=== PATIENT | female | born 1955 | race Caucasian/White ===

== ENCOUNTER 2018-01-03 05:21 | Inpatient (IN) | payer OTHER, SELFPAY ==
[2017-12-22 15:05] VITALS: BP 146/74; PULSE 62; RESP 16; TEMP 36.9; O2SAT 99; BMI 35.6
--- NOTE | 2017-12-22 15:37 | SDCEKG_ITS ---
Test Reason : Blood Pressure : / mmHG Vent. Rate : 058 BPM Atrial Rate : 058 BPM P-R Int : 144 ms QRS Dur : 088 ms QT Int : 472 ms P-R-T Axes : 032 -04 019 degrees QTc Int : 463 ms Sinus bradycardia Cannot rule out Anterior infarct , age undetermined Abnormal ECG Confirmed by LES VILLALOBOS, CLAYTON ([id number]), story editor TIMI CORONA ([id number]) on 12/24/2017 9:30:22 AM Referred By: Rambo Acosta Confirmed By:CLAYTON SALDANA MD
[2017-12-22 17:14] LABS: Hematocrit 39.5 % (37-47); Hemoglobin 13.1 g/dl (12.0-15.0); Mean Corp Hgb Conc 33.2 g/gl (32-36); Mean Corpuscular Hgb 29.8 pg (27.0-32.0); Mean Platelet Vol. 10.4 fl (6.2-12.0); Platelet Count 129 K/mm3 (150-450); RBC Distribution Width CV 12.6 % (11.6-14.6); RBC Distribution Width SD 40.6 fl (35.1-43.9); Red Blood Count 4.39 M/mm3 (4.2-5.4); White Blood Count 7.7 K/mm3 (4.4-11.0)
[2017-12-22 17:15] LABS: Scan Indicated on CBC? Y/N NO
[2017-12-22 17:46] LABS: Anion Gap 8 (5-15); BUN 22 mg/dL (7-18); BUN/Creat Ratio 20.8 RATIO (10-20); Calcium,Total 8.9 mg/dL (8.5-10.1); Chloride 103 mmol/L (98-107); Creatinine, Serum 1.06 mg/dL (0.55-1.02); EST Glomerular Filtration Rate 55 mL/min (>60); Est Glom Filt Rate - Afr Amer 67 mL/min (>60); Estimated Creatinine Clearance 42.41 ml/min; Glucose 81 mg/dL (74-106); Potassium 3.9 mmol/L (3.5-5.1); Sodium Level 140 mmol/L (136-145)
[2018-01-03] VITALS (13 sets, daily range): BP systolic 106–151; BP diastolic 55–85; PULSE 54–85; RESP 14–18; TEMP 36.3–37.2; O2SAT 94–100; BMI 35.6
[2018-01-03] MEDS: oxyCODONE HCl Cr 10 MG Tablet PO (06:28)
[2018-01-03] MEDS: Acetaminophen 500 MG Tablet 1000 MG PO ×3 (06:28→23:04)
[2018-01-03] MEDS: Celecoxib 200 MG Capsule 400 MG PO (06:28)
[2018-01-03] MEDS: Lactated Ringers 1,000 ML 999 ML IV (06:35)
[2018-01-03] MEDS: Cefazolin 2 GM in 0.9% Normal Saline 100 ML IV (07:14)
--- NOTE | 2018-01-03 07:34 | OP.PCM_ITS ---
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 They have failed all forms of conservative measures including activity modification, injections, anti-inflammatories, use of assistive device. The patient has pain that affects on a daily basis and prevents him from doing things that they enjoyed. They have elected to undergo the above procedure. The risks of the procedure were discussed at length and their questions were answered. Procedure description: The patient was greeted in the preoperative area. The right knee was then marked with a surgical marker. Patient was then taken to or [address]. They were administered a dose of antibiotics as well as tranexamic acid. Once adequate anesthesia was obtained and airway was secured to placed in supine position on the operating room table. A well-padded tourniquet was placed on the affected extremity. Leg was then prepped and draped in the usual sterile fashion from the knee down. Ioban was used on the skin. Surgical timeout was then performed and confirmed with all present. Six-inch Esmarch was used to examine the limb and tourniquet was then inflated to 250 mmHg. A longitudinal incision was then planned and carried out in the anterior aspect of the knee. The dissection was then carried the length of the incision the extensor mechanism was identified. Standard medial parapatellar arthrotomy was then performed revealing severe eburnation of bone and periarticular osteophytes. There is complete loss of cartilage especially in the medial compartment with varus alignment. Anterior fat pad was removed for visualization purposes and the anterior medial aspect of the tibia was skeletonized for exposure to the knee. The knee was then flexed the patella was inverted. Opening reamer was then used in the femur approximately 1 cm anterior to the attachment of the PCL. The intramedullary valgus wand was then placed in the femur set at 5? of valgus. The distal femoral cutting jig was then applied to the femur with anticipated resection of approximately 8 mm. This was then made with a oscillating saw. The sizing guide was then placed referencing off the posterior condyles and also reference off the epicondylar axis. This was measured and the appropriate size 4-in-1 cutting jig was then applied to the distal femur. Anterior posterior cuts were made followed by the anterior and posterior chamfer cuts. These bony pieces and fragments were removed and placed on the back table. Posterior retractor was then utilized and the tibia was subluxed anteriorly. Extramedullary tibial alignment jig was then applied to the tibia referencing off the medial one third of the tibial tubercle the anterior tibial spine the middle aspect of the tibiotalar joint. Also reference off patient's koi slope. The tibial cutting jig was then pinned with anticipated resection of 2 mm off of the deficient medial tibial condyle. This cut was made with the oscillating saw. Once this was complete a laminar compensation and benefits analyst was utilized in both medial lateral meniscus were removed and a posterior capsular osteophytes were also removed. Posterior capsule release was performed in the posterior capsule as well as the geniculate arteries are treated with the aqua Snow. The tibia was incised and the appropriate sized tibial tray was then pinned. The femoral box cutting jig was then applied to the femur and the box was prepared removing a portion of the intercondylar notch. The femoral trial was then placed and the knee was trialed. Full flexion-extension were easily achieved. The knee seemed to balance quite nicely. Any remaining osteophytes were removed at this time. Once this was complete the patella was everted and the Kenrick patella reaming device was then utilized the patella was then placed in the appropriate jig and reamer was then used to remove approximately 9 mm of the undersurface of the patella. A soft tissue remaining was in the way was removed and patella trial was then placed listed maintain excellent tracking using the no thumbs technique. The tibial tray at this point was punched to accommodate the fins of the final implant. At this point cement was mixed on the back table. The trial components were removed and the knee was copiously irrigated. Did use a cocktail of injection for postoperative pain control. The final components were then cemented in the standard fashion and excess cement was removed with cement removal tools and patellar clamp is placed in the patella. As the cement had cured in full extension tourniquet was deflated and hemostasis was perfect with Bovie cautery as well as the aqua Manus. Needle is once again trialed with different size polyethylenes to ensure the full range of motion was achieved as well as excellent balancing ligamentously was achieved. At this point the knee was copiously irrigated. Final implant was then inserted locking mechanism was engaged and confirmed to be locked. The arthrotomy was then closed with #1 Vicryl aggravate type fashion interrupted. Subcutaneous tissue was closed with 0 Vicryl and surgical ihsan were placed in the skin. A occlusive silver impregnated dressing was then applied followed by well-padded sterile dressing secured with an Dru wrap. The patient was taken to the PACU in stable condition. No complications known at this time. Postoperatively we will maintain standard total knee postoperative protocol. The use of the physician material assistant was integral during this procedure. They assisted with positioning placement of the tourniquet retracting closure and placement of the dressing. The procedure would have been much more difficult without their expertise and assistance The patient's left knee was cleansed with alcohol preparation solution. A 25- gauge needle was then used to inject combination of 4 mL of 0.5% Marcaine with 40 mg of Kenalog using an anterior medial approach. A bandage was placed. Patient tolerated the procedure well. - Complications None known - Admit VTE Documentation VTE Present on Admission: Yes VTE Mechan Device Prophylaxis: SCD's, Thigh High AXEL Hose VTE Pharm Prophylaxis ordered?: Yes
[2018-01-03] MEDS: Triamcinolone Acetonide 40 MG/ML Vial (07:50)
[2018-01-03] MEDS: Bupivacaine Mpf 0.5% 30 ML VIAL (07:50)
[2018-01-03] MEDS: Scopolamine 1mg/72hr Patch 1 PATCH TD (09:29)
[2018-01-03] MEDS: Famotidine 20 MG Tablet PO (13:37)
[2018-01-03] MEDS: Furosemide 20 MG Tablet PO (13:37)
[2018-01-03] MEDS: Senna/Docusate Sodium 1 Tablet 2 TABLET PO ×2 (13:37→23:05)
[2018-01-03] MEDS: Cefazolin 1 GM/50 ML BAG IV ×2 (15:52→23:05)
[2018-01-03] MEDS: Aspirin 325 MG Tablet PO (17:32)
[2018-01-03] MEDS: Lactated Ringers 1,000 ML 125 ML IV (17:34)
[2018-01-03] MEDS: morphine SR 15 MG Tablet PO (23:04)
[2018-01-03] MEDS: Celecoxib 200 MG Capsule PO (23:05)
[2018-01-04 02:35] VITALS: BP 100/64; PULSE 55; RESP 16; TEMP 36.6; O2SAT 96
[2018-01-04] MEDS: Acetaminophen 500 MG Tablet 1000 MG PO ×3 (05:15→21:53)
[2018-01-04 06:19] LABS: Hematocrit 35.9 % (37-47); Mean Corp Hgb Conc 33.4 g/gl (32-36); Mean Corpuscular Hgb 30.1 pg (27.0-32.0); Mean Platelet Vol. 10.2 fl (6.2-12.0); Platelet Count 165 K/mm3 (150-450); RBC Distribution Width CV 12.4 % (11.6-14.6); RBC Distribution Width SD 40.7 fl (35.1-43.9); Red Blood Count 3.99 M/mm3 (4.2-5.4); White Blood Count 13.5 K/mm3 (4.4-11.0)
[2018-01-04 06:21] LABS: Anion Gap 10 (5-15); BUN 17 mg/dL (7-18); BUN/Creat Ratio 17.5 RATIO (10-20); Chloride 105 mmol/L (98-107); Creatinine, Serum 0.97 mg/dL (0.55-1.02); EST Glomerular Filtration Rate 61 mL/min (>60); Est Glom Filt Rate - Afr Amer 74 mL/min (>60); Estimated Creatinine Clearance 46.34 ml/min; Glucose 140 mg/dL (74-106); Potassium 3.9 mmol/L (3.5-5.1); Sodium Level 141 mmol/L (136-145)
[2018-01-04 06:25] LABS: Scan Indicated on CBC? Y/N NO
[2018-01-04] MEDS: Pantoprazole Sodium 40 MG Tablet PO (07:02)
--- NOTE | 2018-01-04 07:44 | PCM.PN.ORT ---
Subjective: Patient sitting at bedside eating breakfast. Patient states pain is been well managed. Patient states she was brought up in use the bathroom and change her clothes without difficulty today. Denies chest pain, shortness breath, calf pain, nausea vomiting. Objective: Dressing is clean dry intact. Negative signs and symptoms of DVT. Vital signs labs within normal limits. Neurovascular is otherwise intact - Physical Exam General: Alert, Oriented x3 HEENT: PERRLA Oral: Moist Mucosa Neurological: Cranial nerves II-XII grossly intact Psych/Mental Status: Normal Affect, Alert and oriented to time, place, person, mood and affect Vital Signs Temp Pulse Resp BP Pulse Ox 97.8 F 55 L 16 100/64 96 01/04/18 02:35 01/04/18 02:35 01/04/18 02:35 01/04/18 02:35 01/04/18 02:35 Oxygen Delivery Method Room Air Weight: 88.5 kg Body Mass Index (BMI) 35.6 Intake and Output for Last 24 Hours 01/02/18 01/03/18 01/04/18 23:59 23:59 23:59 Intake Total 3659 / 3659 995.6 / 995.6 Output Total 3800 / 3800 600 / 600 Balance -141 / -141 395.6 / 395.6 Laboratory Tests Past 24 Hrs 01/04/18 01/04/18 05:13 05:13 WBC 13.5 H RBC 3.99 L Hgb 12.0 Hct 35.9 L MCV 90.0 MCH 30.1 MCHC 33.4 RDW 12.4 RDW Differential 40.7 Plt Count 165 MPV 10.2 Sodium 141 Potassium 3.9 Chloride 105 Carbon Dioxide 26.0 Anion Gap 10 BUN 17 Creatinine 0.97 Estim Creat Clear Calc 46.34 Est GFR (MDRD) Af Amer 74 Est GFR (MDRD) Non-Af 61 BUN/Creatinine Ratio 17.5 Glucose 140 H Calcium 9.0 Medical Necessity - Tobacco Use Smoking Status: Never smoker Assessment/Plan Status post right total knee Plan 1. Continue all pain medications as prescribed 2. Begin physical therapy today, weight-bear as tolerated, with walker 3. Aspirin 325 mg 1 p.o. every 12 hours ?30 days for postop DVT prophylaxis 4. Encourage incentive spirometry 5. Possible discharge home tomorrow
[2018-01-04] MEDS: Aspirin 325 MG Tablet PO ×2 (08:03→16:54)
[2018-01-04 08:05] VITALS: BP 109/51; PULSE 66; RESP 16; TEMP 37; O2SAT 94
[2018-01-04] MEDS: Famotidine 20 MG Tablet PO (09:48)
[2018-01-04] MEDS: Furosemide 20 MG Tablet PO (09:48)
[2018-01-04] MEDS: Senna/Docusate Sodium 1 Tablet 2 TABLET PO ×2 (09:48→21:54)
[2018-01-04] MEDS: Celecoxib 200 MG Capsule PO ×2 (09:48→21:53)
[2018-01-04] MEDS: morphine SR 15 MG Tablet PO ×2 (09:53→21:53)
--- NOTE | 2018-01-04 11:10 | CASEMGMT ---
NATO ACOSTA completed RN CM assessment at this time. Patient alert and oriented, lying in bed. Demographics, insurance, and providers verified. See link attached. Patient wishes to discharge home and is setup with [facility] for outpatient therapy with providing transportation. Patient denied further needs or questions at this time. RN CM will continue to follow this patient and plan for a safe discharge. Disposition Plan: Patient to discharge home with outpatient therapy, family support, and follow-up plans in place.
[2018-01-04 13:40] VITALS: BP 125/54; PULSE 55; RESP 18; TEMP 37.4; O2SAT 96
[2018-01-04] MEDS: oxyCODONE 5 MG Tablet PO ×2 (13:46→17:58)
[2018-01-04] MEDS: 0.9% NaCl Peripheral Flush Adult/Peds IV (13:49)
[2018-01-04 19:56] VITALS: BP 117/51; PULSE 56; RESP 16; TEMP 36.7; O2SAT 98
[2018-01-05 02:00] VITALS: BP 136/81; PULSE 54; RESP 16; TEMP 36.9; O2SAT 98
[2018-01-05] MEDS: oxyCODONE 5 MG Tablet PO ×2 (02:07→06:16)
[2018-01-05] MEDS: Acetaminophen 500 MG Tablet 1000 MG PO (06:16)
[2018-01-05] MEDS: Pantoprazole Sodium 40 MG Tablet PO (06:17)
[2018-01-05 06:53] LABS: Hematocrit 34.6 % (37-47); Mean Corp Hgb Conc 31.8 g/gl (32-36); Mean Corpuscular Volume 91.3 fL (81-99); Mean Platelet Vol. 10.8 fl (6.2-12.0); Platelet Count 180 K/mm3 (150-450); RBC Distribution Width CV 13.1 % (11.6-14.6); RBC Distribution Width SD 43.4 fl (35.1-43.9); Red Blood Count 3.79 M/mm3 (4.2-5.4); White Blood Count 11.5 K/mm3 (4.4-11.0)
[2018-01-05 06:57] LABS: Scan Indicated on CBC? Y/N NO
[2018-01-05 08:00] VITALS: BP 124/70; PULSE 64; RESP 16; TEMP 36.8; O2SAT 98
[2018-01-05] MEDS: Famotidine 20 MG Tablet PO (09:28)
[2018-01-05] MEDS: morphine SR 15 MG Tablet PO (09:28)
[2018-01-05] MEDS: Senna/Docusate Sodium 1 Tablet 2 TABLET PO (09:29)
[2018-01-05] MEDS: Furosemide 20 MG Tablet PO (09:29)
[2018-01-05] MEDS: Aspirin 325 MG Tablet PO (09:29)
[2018-01-05] MEDS: Celecoxib 200 MG Capsule PO (09:29)
--- NOTE | 2018-01-05 10:02 | PN.ORTHO_ITS ---
Subjective: Patient sitting at bedside. Pain well managed. States she is ready for discharge home. No other complaints Objective: Dressings clean dry intact. Negative signs and symptoms of DVT. Vital signs labs within normal limits. Patient is afebrile. - Physical Exam General: Alert, Oriented x3 Psych/Mental Status: Alert and oriented to time, place, person, mood and affect Vital Signs Temp Pulse Resp BP Pulse Ox 98.2 F 64 16 124/70 H 98 01/05/18 08:00 01/05/18 08:00 01/05/18 08:00 01/05/18 08:00 01/05/18 08:00 Oxygen Delivery Method Room Air Weight: 88.5 kg Body Mass Index (BMI) 35.6 Intake and Output for Last 24 Hours 01/03/18 01/04/18 01/05/18 23:59 23:59 23:59 Intake Total 3659 / 3659 1994.6 / 1994.6 Output Total 3800 / 3800 1875 / 1875 450 / 450 Balance -141 / -141 120.6 / 120.6 -450 / -450 Laboratory Tests Past 24 Hrs 01/05/18 06:04 WBC 11.5 H RBC 3.79 L Hgb 11.0 L Hct 34.6 L MCV 91.3 MCH 29.0 MCHC 31.8 L RDW 13.1 RDW Differential 43.4 Plt Count 180 MPV 10.8 Medical Necessity - Tobacco Use Smoking Status: Never smoker Assessment/Plan Status post right total knee Plan 1. Continue all pain medications as prescribed 2. Continue physical therapy at [facility] , weight-bear as tolerated, with walker 3. Aspirin 325 mg 1 p.o. every 12 hours ?30 days for postop DVT prophylaxis 4. Follow-up as scheduled 5. Discharge home today
--- NOTE | 2018-01-05 10:05 | PCM.DC.TKR ---
Discharge Diet: No Restrictions Discharge Activity: May Not Drive, May Shower, Use Walker May shower in (days): 1 Ice area for (Minutes): 20 - each hour while awake. Weight Bearing Status: Weight bearing as tolerated Elevate: Operative Extremity Additional Activity Instructions:: Wear elastic stockings for 2 weeks after your surgery. Call your doctor if your incision/area has: Continuous Slow Oozing, Sudden Increased Bleeding, Increased Pain/ Swelling, Increased Redness, Foul Smelling Discharge Call your doctor if you observe: Fever of 101 or Higher, Coldness, Increased Pain - in extremity, Numbness or Tingling, Change in Color, Calf discomfort, Uncontrolled pain Change Dressing in (Days):: 0 - and daily as needed. Remove Dressing in (days):: 8 Cleanse incision/area with: Soap & Water Allergies/Adverse Reactions: Allergies No Known Allergies Allergy (Verified 12/22/17 14:57) Medications to take at Discharge Multivit with Calcium,Iron,Min [Multiple Vitamins For Women] 1 each PO DAILY 03/12/17 Cholecalciferol (Vitamin D3) [Vitamin D3] 1,000 unit PO DAILY 12/22/17 Furosemide [Lasix] 20 mg PO DAILY 12/22/17 Pantoprazole Sodium [Protonix] 40 mg PO DAILY 12/22/17 Pumpkin Seed Extract/Soy Germ [Azo Bladder Control Capsule] 300 mg PO DAILY 12/22/17 Tumeric 1 cap PO DAILY 12/22/17 Acetaminophen [Tylenol] 1,000 mg PO Q8 #90 tab 01/05/18 Aspirin 325 mg PO BIDCM #60 tab 01/05/18 Oxycodone [Oxyir] 5 - 10 mg PO Q6H PRN PRN 7 Days #80 tab 01/05/18 morphine SR tablet [Ms Contin] 15 mg PO BID 7 Days #14 tab 01/05/18 The following prescriptions were given: Oxycodone [Oxyir] 5 - 10 mg PO Q6H PRN PRN 7 Days #80 tab PRN Reason: Mod-Severe Pain (4-1010) Acetaminophen [Tylenol] 1,000 mg PO Q8 #90 tab Aspirin 325 mg PO BIDCM #60 tab morphine SR tablet [Ms Contin] 15 mg PO BID 7 Days #14 tab Primary Care Physician: Be Esquivel DO [Primary Care Provider] - Test Results: Test results from this visit will be discussed in further detail at your follow-up appointment, if applicable. Please Follow Up With: Rambo Acosta, DO
--- NOTE | 2018-01-05 10:10 | DCINST_ITS ---
Discharge Diet: No Restrictions Discharge Activity: May Not Drive, May Shower, Use Walker May shower in (days): 1 Ice area for (Minutes): 20 - each hour while awake. Weight Bearing Status: Weight bearing as tolerated Elevate: Operative Extremity Additional Activity Instructions:: Wear elastic stockings for 2 weeks after your surgery. Call your doctor if your incision/area has: Continuous Slow Oozing, Sudden Increased Bleeding, Increased Pain/ Swelling, Increased Redness, Foul Smelling Discharge Call your doctor if you observe: Fever of 101 or Higher, Coldness, Increased Pain - in extremity, Numbness or Tingling, Change in Color, Calf discomfort, Uncontrolled pain Change Dressing in (Days):: 0 - and daily as needed. Remove Dressing in (days):: 8 Cleanse incision/area with: Soap & Water Allergies/Adverse Reactions: Allergies No Known Allergies Allergy (Verified 12/22/17 14:57) Medications to take at Discharge Multivit with Calcium,Iron,Min [Multiple Vitamins For Women] 1 each PO DAILY Cholecalciferol (Vitamin D3) [Vitamin D3] 1,000 unit PO DAILY 12/22/17 Furosemide [Lasix] 20 mg PO DAILY 12/22/17 Pantoprazole Sodium [Protonix] 40 mg PO DAILY 12/22/17 Pumpkin Seed Extract/Soy Germ [Azo Bladder Control Capsule] 300 mg PO DAILY Tumeric 1 cap PO DAILY 12/22/17 Acetaminophen [Tylenol] 1,000 mg PO Q8 #90 tab 01/05/18 Aspirin 325 mg PO BIDCM #60 tab 01/05/18 Oxycodone [Oxyir] 5 - 10 mg PO Q6H PRN PRN 7 Days #80 tab 01/05/18 morphine SR tablet [Ms Contin] 15 mg PO BID 7 Days #14 tab 01/05/18 The following prescriptions were given: Oxycodone [Oxyir] 5 - 10 mg PO Q6H PRN PRN 7 Days #80 tab PRN Reason: Mod-Severe Pain (4-1010) Acetaminophen [Tylenol] 1,000 mg PO Q8 #90 tab Aspirin 325 mg PO BIDCM #60 tab morphine SR tablet [Ms Contin] 15 mg PO BID 7 Days #14 tab Primary Care Physician: Be Esquivel DO [Primary Care Provider] - Test Results: Test results from this visit will be discussed in further detail at your follow- up appointment, if applicable. Please Follow Up With: Rambo Acosta, DO
== END 2018-01-05 13:38 | disposition home or self-care (01) | DRG 470 ==
LOC: ACINP 05:22 → MS3 08:40
PROVIDERS: Admitting Provider Orthopaedic Surgery; Family Provider Family Medicine; PCP Family Medicine; Visit Provider Orthopaedic Surgery
PROC: 0SRC0J9 Replacement of Right Knee Joint with Synthetic Substitute, Cemented, Open Approach (ICD-10-PCS; CPT 27447; principal; 2018-01-03 06:50)
DX: M17.0 Bilateral primary osteoarthritis of knee (principal); E66.9 Obesity, unspecified; Z68.36 Body mass index [BMI] 36.0-36.9, adult
CPT/HCPCS: 36415; 80048; 85027; 87081; 93005; 97110; 97116; 97162; 97165; 97530; 97535; 97802; C1776; J7120; A4216

== ENCOUNTER → 2018-03-02 11:51 | Outpatient (CLI) | payer OTHER, SELFPAY | PROVIDERS: Family Provider Family Medicine; PCP Family Medicine; Visit Provider Preventive Medicine Occupational Medicine | DX: Z12.31 Encounter for screening mammogram for malignant neoplasm of breast (principal) | CPT/HCPCS: 77063; 77067 ==

== ENCOUNTER 2018-04-21 11:25 | Day surgery (SDC) | payer OTHER, SELFPAY ==
--- NOTE | 2018-04-21 | IMM_PTH ---
PATIENT: RICHY WALLACE LOC: EN U#:[id number] AGE/SX: 62/F ROOM: RE04/21/[address]: Dr. Lina Stewart MD : 1955 BED: DIS: 04/21/2018 SPEC #: [id number] RECD: 04/22/18 14:41 STATUS: SOUSincere REQ #: [id number] DANNY: 04/21/18 00:[address]: Lina Stewart DEPT: IMMUNOHISTOCHEMISTRY RECD BY: Linda Wade ENTERED: 04/22/18 14:43 SP TYPE: IMMUNO OTHR DR: Dr. Be Esquivel DO Tissues: D - Rectum, NOS Procedures: MSH2 (add) MLH-1 (add) MSH6 (add) Anti-PMS2 (add) CK20 (add) CK5-6 (add) CK8 (add) BOYLE-2 (add) KI-67 (add) P53 (add) P40 (add) CK7 (initial) PHYSICIAN & [address] [address] SPECIMEN INFORMATION: Tissue Source: D - Distal rectum-anus mass biopsy Clinical Info: Bright red blood per rectum, change in stool caliber Specimen Number: [id number] CPT code: 55333, 94759 x11 METHODOLOGY: Deparaffinized sections of prefer/formalin-fixed tissue or PAP/DQ stained slides are incubated with monoclonal/polyclonal antibodies/oligonucleotide probes. Localization is made via biotin free immunoperoxidase method. Appropriate controls are performed and reacted as expected. Results on target cell population are indicated in the following table: RESULTS: ANTIBODY / CLONE RESULT CK7 (OV-TL12/30) positive CK8 ([id number]) positive, weak CK20 (KS20.8) negative CK5-6 (D5 & 1684) positive Ki-67 (30-9) positive, high P53 (DO-7) positive, rare cells, weak P40 (BC28) positive BOYLE-2 (SP21) positive MLH-1 (M1) positive MSH2 (25D12) positive MSH6 (44) positive PMS2 ([id number]) positive These tests were developed and their performance characteristics determined by [facility]. They may not have been cleared or approved by the U.S. Food and Drug Administration. The FDA has determined that such clearance or approval is not necessary. INTERPRETATION: Distal rectum-anus mass biopsy: Poorly differentiated carcinoma, favor squamous cell carcinoma. Result of Microsatellite Instability Study: Negative (no loss of mismatch protein; no microsatellite instability detected). SJ:reilly 04/22/18
--- NOTE | 2018-04-21 | COLBX_PTH ---
PATIENT: RICHY WALLACE LOC: EN U#:[id number] AGE/SX: 62/F ROOM: RE04/21/[address]: Dr. Lina Stewart MD : 1955 BED: DIS: 04/21/2018 SPEC #: [id number] RECD: 04/21/18 14:38 STATUS: MURTAZA REZita #: [id number] DANNY: 04/21/18 00:[address]: Lina Stewart DEPT: SURGICAL PATHOLOGY RECD BY: Reggie Coleman ENTERED: 04/21/18 14:39 SP TYPE: COLON BX NADEEN DR: Dr. Be Esquivel DO Tissues: A - Transverse colon B - Sigmoid colon biopsy C - Rectum, NOS D - Rectum, NOS Procedures: Surgery Specimen Level IV HEADER OPERATION: Colonoscopy PRE-OP DIAGNOSIS: Bright red blood per rectum, change in stool caliber TISSUE SUBMITTED: A - Proximal transverse colon polyp biopsy, B - Sigmoid polyp, C - Proximal rectal polyp, D - Distal rectum-anus mass biopsy MICROSCOPIC DIAGNOSIS A. Proximal transverse colon polyp, biopsy: Tubular adenoma. B. Sigmoid polyp, biopsy: Tubular adenoma. C. Proximal rectal polyp, biopsy: Fragments of tubular adenoma. D. Distal rectum-anus mass, biopsy: Poorly differentiated carcinoma, favor squamous cell carcinoma. See comment. SJ:rg 04/22/18 COMMENT Immunohistochemistry ([id number]) supports the above diagnosis. Results of mismatch repair of protein ([id number]) will also reported separately. This case was discussed with Dr. Stewart on 04/22/18 MICROSCOPIC DESCRIPTION Slides are reviewed. GROSS DESCRIPTION A - Received in fixative is one container labeled with the patient's name and designated proximal transverse colon polyp biopsy. The specimen consists of one irregular fragment of light warren soft tissue that measures 0.3 x 0.3 x 0.1 cm. The specimen is totally submitted in one cassette. B - Received in fixative is one container labeled with the patient's name and designated sigmoid polyp. The specimen consists of one irregular fragment of light warren soft tissue that measures 0.3 x 0.3 x 0.1 cm. The specimen is totally submitted in one cassette. C - Received in fixative is one container labeled with the patient's name and designated proximal rectal polyp. The specimen consists of multiple fragments of warren-pink polyp that in aggregate measure 1.5 x 0.5 x 0.3 cm. The specimen is totally submitted in one cassette. D - Received in fixative is one container labeled with the patient's name and designated distal rectum-anus mass biopsy. The specimen consists of multiple irregular fragments of light warren soft tissue that in aggregate measure 1.5 x 0.3 x 0.1 cm. The specimen is totally submitted in one cassette. / SJ:rg 04/21/18 TC:0 [facility]: [id number] x4 ADDENDUM ADDENDUM ADDENDUM ADDENDUM ADDENDUM ADDENDUM ADDENDUM ADDENDUM ADDENDUM ADDENDUM ADDENDUM ADDENDUM ADDENDUM 05/05/2018 09:59 ADDENDUM 05/05/2018 09:59 ADDENDUM 05/05/2018 09:59 ADDENDUM 05/05/2018 09:59 ADDENDUM 05/05/2018 09:59 This addendum is added to incorporate an outside pathology consultation report. The case was examined at [facility] (#[id number]) and the following diagnosis was rendered. A. Proximal transverse colon polyp, biopsy: Tubular adenoma. B. Sigmoid colon polyp, biopsy: Tubular adenoma. C. Proximal rectal polyp, biopsy: Fragments of tubular adenoma. D. Distal rectum/anus mass, biopsy: Poorly differentiated squamous cell carcinoma. Please see complete above mentioned consultation report in EMR
[2018-04-21 11:47] VITALS: BP 144/82; PULSE 73; RESP 16; TEMP 37; O2SAT 100; BMI 33.0
[2018-04-21 13:39] VITALS: BP 144/88; BP 95/73; PULSE 78; RESP 16; TEMP 36.4; O2SAT 98
[2018-04-21 13:43] VITALS: BP 118/70; BP 144/88; PULSE 70; RESP 16; O2SAT 100
--- NOTE | 2018-04-21 13:45 | OP.ENDO_ITS ---
Patient Name: Cynthia Wagoner Procedure Date: 04/21/2018 12:32 PM Date of : 1955 Age: 62 Procedure: Colonoscopy Indications: Abnormal rectal exam, Change in stool caliber Providers: Lina Stewart MD Referring MD: Lina Stewart MD Medicines: Monitored Anesthesia Care Patient Profile: Last Colonoscopy: none. The patient's first colonoscopy is today. Complications: No immediate complications. Procedure: Pre-Anesthesia Assessment: - Prior to the procedure, a History and Physical was performed, and patient medications and allergies were reviewed. The patient's tolerance of previous anesthesia was also reviewed. The risks and benefits of the procedure and the sedation options and risks were discussed with the patient. All questions were answered, and informed consent was obtained. Prior Anticoagulants: The patient has taken no previous anticoagulant or antiplatelet agents. ASA Grade Assessment: II - A patient with mild systemic disease. After reviewing the risks and benefits, the patient was deemed in satisfactory condition to undergo the procedure. After I obtained informed consent, the scope was passed under direct vision. Throughout the procedure, the patient's blood pressure, pulse, and oxygen saturations were monitored continuously. The colonoscope was introduced through the anus and advanced to the ascending colon. The colonoscopy was performed with moderate difficulty due to significant looping. Successful completion of the procedure was aided by changing the patient to a supine position. The patient tolerated the procedure well. The quality of the bowel preparation was good. Scope In: 12:48:47 PM Scope Out: 1:28:54 PM Total Procedure Duration Time 0 hours 40 minutes 7 seconds Findings: Two semi-sessile polyps were found in the rectum and sigmoid colon. The polyps were 4 to 7 mm in size. These polyps were removed with a hot snare. Resection and retrieval were complete. A less than 5 mm polyp was found in the proximal transverse colon. The polyp was sessile. The polyp was removed with a cold biopsy forceps. Resection and retrieval were complete. A fungating partially obstructing mass was found in the distal rectum/anus. The mass was partially circumferential (involving one-third of the lumen circumference). The mass measured five cm in length. Oozing was present. Biopsies were taken with a cold forceps for histology. The digital rectal exam revealed a 5 cm (diameter) firm rectal/anal mass. Impression: - Two 4 to 7 mm polyps in the rectum and in the sigmoid colon, removed with a hot snare. Resected and retrieved. - One less than 5 mm polyp in the proximal transverse colon, removed with a cold biopsy forceps. Resected and retrieved. - Likely malignant partially obstructing tumor in the distal rectum/anus. Biopsied. - Rectal mass. Recommendation: - Repeat colonoscopy at the next available appointment because the examination was incomplete. - No aspirin, ibuprofen, naproxen, or other non-steroidal anti-inflammatory drugs for 2 weeks after polyp removal. Procedure Code(s): --- Professional --- 41993, 52, Colonoscopy, flexible; with removal of tumor(s), polyp(s), or other lesion(s) by snare technique 49252, 59,52, Colonoscopy, flexible; with biopsy, single or multiple Diagnosis Code(s): --- Professional --- K62.1, Rectal polyp D12.5, Benign neoplasm of sigmoid colon D12.3, Benign neoplasm of transverse colon (hepatic flexure or splenic flexure) D49.0, Neoplasm of unspecified behavior of digestive system K56.690, Other partial intestinal obstruction CPT copyright 2017 [employer]. All rights reserved. The codes documented in this report are preliminary and upon radiology supervisor review may be revised to meet current compliance requirements. MD Lina Muller MD 04/21/2018 1:45:00 PM This report has been signed electronically. Number of Addenda: 0 Note Initiated On: 04/21/2018 12:32 PM
[2018-04-21 13:48] VITALS: BP 126/66; BP 144/88; PULSE 60; RESP 16; O2SAT 98
[2018-04-21 14:06] VITALS: BP 142/84; BP 144/88; PULSE 58; RESP 16; TEMP 37; O2SAT 99
[2018-04-21 14:25] LABS: Absolute Lymphocyte Count 1.34 X10^3/ul (0.83-4.51); Absolute Neutrophil Count 5.4 X10^3/uL (2.0-7.7); Basophil# 0.05 X10^3/uL; Basophil% 0.7 % (0-1); Eosinophils% 1.3 % (0-5); Hematocrit 39.9 % (37-47); Hemoglobin 12.5 g/dl (12.0-15.0); Lymphocyte # 1.34 X10^3/ul (4.0); Lymphocyte % 17.9 % (19-41); Mean Corp Hgb Conc 31.3 g/gl (32-36); Mean Corpuscular Hgb 28.5 pg (27.0-32.0); Mean Corpuscular Volume 91.1 fL (81-99); Mean Platelet Vol. 9.3 fl (6.2-12.0); Neutrophil # 5.39 X10^3/uL (2.7-7.7); Neutrophil % 71.8 % (47-70); Platelet Count 233 K/mm3 (150-450); RBC Distribution Width CV 13.2 % (11.6-14.6); Red Blood Count 4.38 M/mm3 (4.2-5.4); White Blood Count 7.5 K/mm3 (4.4-11.0)
[2018-04-21 14:26] LABS: POSITIVE COUNT NO; POSITIVE DIFFERENTIAL NO; POSITIVE MORPHOLOGY NO
[2018-04-21 14:50] VITALS: BP 144/88
[2018-04-21 14:54] LABS: ALB/GLOB Ratio 1.4 RATIO (0.9-2.4); AST(SGOT) 13 U/L (15-37); Alanine Aminotransfer ALT/SGPT 15 U/L (13-56); Albumin, Serum 3.7 g/dL (3.2-5.0); Alkaline Phosphatase 86 U/L (45-117); Anion Gap 8 (5-15); BUN 10 mg/dL (7-18); BUN/Creat Ratio 11.9 RATIO (10-20); Calcium,Total 8.5 mg/dL (8.5-10.1); Chloride 107 mmol/L (98-107); Creatinine, Serum 0.84 mg/dL (0.55-1.02); EST Glomerular Filtration Rate 73 mL/min (>60); Est Glom Filt Rate - Afr Amer 88 mL/min (>60); Estimated Creatinine Clearance 55.97 ml/min; Globulin 2.7 g/dL (2.2-4.2); Glucose 94 mg/dL (74-106); Potassium 3.4 mmol/L (3.5-5.1); Protein, Total 6.4 g/dL (6.4-8.2); Sodium Level 142 mmol/L (136-145)
[2018-04-22 15:32] LABS: Carcinoembryonic Antigen 2.3 ng/mL (0.0-4.7)
== END 2018-04-21 14:51 | disposition home or self-care (01) ==
LOC: EN 11:26 → AC 11:27
PROVIDERS: Family Provider Family Medicine; PCP Family Medicine; Referring Provider Surgery; Visit Provider Surgery
PROC: 0DJD8ZZ Inspection of Lower Intestinal Tract, Via Natural or Artificial Opening Endoscopic (ICD-10-PCS; CPT 45378; principal; 2018-04-21 12:25)
DX: K62.1 Rectal polyp (principal); D12.5 Benign neoplasm of sigmoid colon; D12.3 Benign neoplasm of transverse colon; K56.690 Other partial intestinal obstruction; C20 Malignant neoplasm of rectum
CPT/HCPCS: 45380; 45385; 36415; 80053; 82378; 85025; 88305; 88341; 88342; J7120; J2405

== ENCOUNTER → 2018-06-13 08:58 | Outpatient (CLI) | payer OTHER, SELFPAY ==
[2018-06-13 09:08] VITALS: BP 129/72; PULSE 87; RESP 14; O2SAT 98; BMI 32.4
== END ==
PROVIDERS: Family Provider Family Medicine; PCP Family Medicine; Referring Provider Internal Medicine Hematology & Oncology; Visit Provider Internal Medicine Hematology & Oncology
DX: Z45.2 Encounter for adjustment and management of vascular access device (principal); C21.0 Malignant neoplasm of anus, unspecified
CPT/HCPCS: 36569

== ENCOUNTER 2018-07-21 15:31 | Inpatient (IN) | payer OTHER, SELFPAY ==
[2018-06-13 09:08] VITALS: BMI 32.4
[2018-07-21 15:32] VITALS: BP 131/79; PULSE 126; RESP 17; TEMP 35.6; O2SAT 98; BMI 31.2
--- NOTE | 2018-07-21 15:50 | EKG12_ITS ---
Test Reason : RADIATION GÓMEZ Blood Pressure : / mmHG Vent. Rate : 099 BPM Atrial Rate : 099 BPM P-R Int : 128 ms QRS Dur : 086 ms QT Int : 364 ms P-R-T Axes : 051 014 061 degrees QTc Int : 467 ms Normal sinus rhythm Low voltage QRS (limb leads) Nonspecific ST and T wave abnormality Cannot rule out Inferior infarct , age undetermined Abnormal ECG Confirmed by ADDIE VILLALOBOS, CAPRI ([id number]), editor in chief GERMAIN TURNER ([id number] on 07/26/2018 3:02:39 PM Referred By: Juan Pablo Canchola Confirmed By:CAPRI REAL MD
--- NOTE | 2018-07-21 15:56 | ED.DCSUM_ITS ---
- ER Visit Summary Date of Service: 07/21/18 Chief Complaint: Rectal pain History of Present Illness: The patient is a 62 F undergoing treatment for anal cancer who presents with severe rectal pain. Patient completed chemotherapy 5 days ago. She is in week 5 of radiation treatment, with her last treatment yesterday. For the last 2-3 treatments she has been having worsening severe rectal and perineal pain. She missed her treatment today because of the pain being so severe. She has associated nausea, low abdominal pain, and has not had a bowel movement for 4 days. Her last bowel movement was profuse diarrhea. Patient is also on treatment for urinary tract infection, on Bactrim for the last 2 days. She is having difficulty urinating secondary to severe pain and dysuria. Patient has been using silver sulfate ointment in her perineal and rectal region since yesterday with some improvement, and she is taking 2 [place]'s every 6 hours. Pain control is inadequate. She has had decreased oral intake. Denies fever, chest pain, shortness of breath, URI symptoms. Physical Examination: Vital signs: afebrile, intensive, tachycardic, no hypoxia on room air General: well nourished, well developed, in mild distress and appears uncomfortable Skin: warm, dry, no pallor HEENT: normocephalic and atraumatic; PERRL, EOMI, moist mucous membranes Cardiovascular: Tachycardic rate and rhythm without murmurs, no peripheral edema, 2+ pulses all distal extremities Respiratory: No increased work of breathing, lungs are clear to auscultation bilaterally, no rales, rhonchi or wheezing Abdominal: Abdomen is soft, tenderness in the suprapubic region with normoactive bowel sounds, no guarding or rebound, no masses : Patient has symmetric desquamation of the skin in the labial, perineal and rectal region including the inner thighs. Very tender to palpation. Mild diffuse edema. MSK: Moves all extremities, no deformities, normal strength Neuro: Awake and alert, oriented ?4. No facial droop, sensation and motor function intact and symmetric Test Results: Abnormal Lab Results 07/21/18 07/21/18 07/21/18 16:10 16:10 16:10 WBC 2.0 L RBC 3.53 L Hgb 10.5 L Hct 31.4 L MCV 89.0 MCH 29.7 MCHC 33.4 RDW 16.1 H RDW Differential 51.2 H Plt Count 122 L MPV 9.6 Immature Gran % (Auto) 0.500 Neut % (Auto) 72.8 H Lymph % (Auto) 8.4 L [place] % (Auto) 9.9 Eos % (Auto) 7.9 H Baso % (Auto) 0.5 Absolute Neuts (auto) 1.5 L Absolute Lymphs (auto) 0.17 L Total Counted Not Reportable Differential Comment SEE COMMENT Platelet Estimate SLT DEC Anisocytosis RARE PT 13.4 INR 1.0 APTT 26.2 Sodium 138 Potassium 3.3 L Chloride 102 Carbon Dioxide 24.0 Anion Gap 12 BUN 12 Creatinine 0.97 Estim Creat Clear Calc 46.34 Est GFR (MDRD) Af Amer 74 Est GFR (MDRD) Non-Af 61 BUN/Creatinine Ratio 12.4 Glucose 150 H Lactic Acid Calcium 8.8 Total Bilirubin 0.50 AST 22 ALT 46 Alkaline Phosphatase 100 Total Protein 7.2 Albumin 3.7 Globulin 3.5 Albumin/Globulin Ratio 1.1 Urine Color Urine Clarity Urine pH Ur Specific [place] Urine Protein Urine Glucose (UA) Urine Ketones Urine Occult Blood Urine Nitrite Urine Bilirubin Urine Urobilinogen Ur Leukocyte Esterase Urine RBC Urine WBC Ur Squamous Epith Cells Urine Bacteria Urine Mucus 07/21/18 07/21/18 16:10 17:30 WBC RBC Hgb Hct MCV MCH MCHC RDW RDW Differential Plt Count MPV Immature Gran % (Auto) Neut % (Auto) Lymph % (Auto) [place] % (Auto) Eos % (Auto) Baso % (Auto) Absolute Neuts (auto) Absolute Lymphs (auto) Total Counted Differential Comment Platelet Estimate Anisocytosis PT INR APTT Sodium Potassium Chloride Carbon Dioxide Anion Gap BUN Creatinine Estim Creat Clear Calc Est GFR (MDRD) Af Amer Est GFR (MDRD) Non-Af BUN/Creatinine Ratio Glucose Lactic Acid 2.1 H Calcium Total Bilirubin AST ALT Alkaline Phosphatase Total Protein Albumin Globulin Albumin/Globulin Ratio Urine Color SEE COMMENT BELOW Urine Clarity Cloudy Urine pH 5.0 Ur Specific [place] 1.025 Urine Protein 100 H Urine Glucose (UA) Normal Urine Ketones Negative Urine Occult Blood 50 H Urine Nitrite Positive H Urine Bilirubin 3 H Urine Urobilinogen 4 H Ur Leukocyte Esterase 500 H Urine RBC 0-5 SEEN Urine WBC 50-100 SEEN Ur Squamous Epith Cells 0-5 SEEN Urine Bacteria 2+ Urine Mucus 1+ Medications Given Discontinued Medications Hydromorphone HCl (Dilaudid Inj) 0.5 mg IV X1 ONE Stop: 07/21/18 15:53 Last Admin: 07/21/18 16:11 Dose: 0.5 mg Sodium Chloride () 1,000 mls @ 999 mls/hr IV .Q1H1M RIP Last Admin: 07/21/18 16:11 Dose: 999 mls/hr Ceftriaxone Sodium (Rocephin) 1 gm in 50 mls @ 100 mls/hr IV X1 ONE Stop: 07/21/18 18:41 Last Admin: 07/21/18 18:52 Dose: 100 mls/hr Ondansetron HCl (Zofran) 4 mg IV X1 ONE Stop: 07/21/18 15:53 Last Admin: 07/21/18 16:12 Dose: 4 mg Emergency Department Course and Treatment: Patient is 5 days status post her final chemotherapy treatment and thus neutropenic precautions will be followed until lab work returns. Patient was given IV fluids for dehydration and Zofran and Dilaudid for symptomatic relief. Labs were remarkable for neutropenia with an ANC of 1500. Lactate mildly elevated at 2.1. EKG shows sinus rhythm with no significant changes. Urinalysis was positive for infection. Patient did have difficulty urinating secondary to severe burning pain due to her desquamation from radiation therapy. Bladder scan showed 640 cc of urine in the bladder. Patient had modest improvement of her pain with the Dilaudid but continued to be in severe discomfort. She was discussed with Dr. Bledsoe, who stated patient would likely need a couple days off from the radiation therapy to heal, which should help her severe symptoms. He recommended she be admitted for symptomatic control. Patient was amenable to this plan. She does have the urinary tract infection and was started on Rocephin. The elevated lactate is less likely due to sepsis and more likely due to patient's mild dehydration. She is afebrile and thus neutropenic fever treatment was not performed. Patient was discussed with the hospitalist for admission for further management of her cancer related symptoms. Treatment Plan: [] Disposition: [] Impression: Severe rectal and genitourinary pain secondary to radiation therapy, active anal cancer, dehydration, urinary tract infection, urinary retention This note was generated with [employer] software. It may contain incorrect words, spelling, and punctuation that were not noted in review of the chart prior to signing ED Disposition - Plan for ED Patient: Disposition: Acute Care Hospital [facility] Chief Complaint: Constipation
[2018-07-21] MEDS: 0.9% Normal Saline 1,000 ML 999 ML IV (16:11)
[2018-07-21] MEDS: HYDROmorphone 0.5 MG/0.5 ML SYRINGE IV (16:11)
[2018-07-21] MEDS: Ondansetron 4 MG/2 ML Vial IV (16:12)
[2018-07-21 16:17] VITALS: BP 111/82; PULSE 85; RESP 14; TEMP 37.1; O2SAT 99
[2018-07-21 16:19] VITALS: TEMP 37.1
[2018-07-21 16:50] LABS: ALB/GLOB Ratio 1.1 RATIO (0.9-2.4); AST(SGOT) 22 U/L (15-37); Alanine Aminotransfer ALT/SGPT 46 U/L (13-56); Albumin, Serum 3.7 g/dL (3.2-5.0); Alkaline Phosphatase 100 U/L (45-117); Anion Gap 12 (5-15); BUN 12 mg/dL (7-18); BUN/Creat Ratio 12.4 RATIO (10-20); Calcium,Total 8.8 mg/dL (8.5-10.1); Chloride 102 mmol/L (98-107); Creatinine, Serum 0.97 mg/dL (0.55-1.02); EST Glomerular Filtration Rate 61 mL/min (>60); Est Glom Filt Rate - Afr Amer 74 mL/min (>60); Estimated Creatinine Clearance 46.34 ml/min; Globulin 3.5 g/dL (2.2-4.2); Glucose 150 mg/dL (74-106); Potassium 3.3 mmol/L (3.5-5.1); Protein, Total 7.2 g/dL (6.4-8.2); Sodium Level 138 mmol/L (136-145)
[2018-07-21 16:53] LABS: Lactic Acid 2.1 mmol/L (0.4-2.0)
[2018-07-21 17:00] VITALS: BP 117/71; PULSE 79; RESP 16; TEMP 37.1; O2SAT 98
[2018-07-21 17:00] LABS: Prothrombin Time (Protime)PT. 13.4 SECONDS (11.7-14.9)
[2018-07-21 17:01] LABS: Partial Thromboplast Time 26.2 Seconds (24.1-36.2)
[2018-07-21 17:07] LABS: Absolute Lymphocyte Count 0.17 X10^3/ul (0.83-4.51); Absolute Neutrophil Count 1.5 X10^3/uL (2.0-7.7); Basophil# 0.01 X10^3/uL; Basophil% 0.5 % (0-1); Eosinophil# 0.16 X10^3/uL; Eosinophils% 7.9 % (0-5); Hematocrit 31.4 % (37-47); Hemoglobin 10.5 g/dl (12.0-15.0); Lymphocyte # 0.17 X10^3/ul (4.0); Lymphocyte % 8.4 % (19-41); Mean Corp Hgb Conc 33.4 g/gl (32-36); Mean Corpuscular Hgb 29.7 pg (27.0-32.0); Mean Platelet Vol. 9.6 fl (6.2-12.0); Monocyte% 9.9 % (0-10); Neutrophil # 1.48 X10^3/uL (2.7-7.7); Neutrophil % 72.8 % (47-70); Platelet Count 122 K/mm3 (150-450); RBC Distribution Width CV 16.1 % (11.6-14.6); RBC Distribution Width SD 51.2 fl (35.1-43.9); Red Blood Count 3.53 M/mm3 (4.2-5.4)
[2018-07-21 17:11] LABS: Differential Indicated SCAN CRITERIA MET; POSITIVE COUNT NO; POSITIVE DIFFERENTIAL YES; POSITIVE MORPHOLOGY NO
[2018-07-21 17:37] LABS: Anisocytosis RARE; Platelet Estimate SLT DEC (ADEQ)
[2018-07-21 17:48] LABS: Color, Urine SEE COMMENT BELOW (Yellow); Glucose, Dipstick Normal (Normal); Ketone-Dipstick Negative (Negative); Leukocyte Esterase-Dipstick 500 /ul (Negative); Nitrite-Dipstick Positive (Negative); Occult Blood-Urine 50 /ul (Negative); Protein-Dipstick 100 mg/dl (Negative); Specific Gravity, Urine 1.025 (1.002-1.030); Urine Bilirubin Dipstick 3 mg/dL (Negative); Urine Clarity Cloudy (Clear); Urine Urobilinogen 4 mg/dl (Normal)
[2018-07-21 17:54] LABS: White Blood Cells 50-100 SEEN /hpf (0-5)
[2018-07-21 17:55] LABS: Bacteria 2+ /hpf (None Seen); Mucous, Urine 1+ /hpf (<or=2+); Red Blood Cells-Urine 0-5 SEEN /hpf (0-5); Squamous Epithelial Cells - UA 0-5 SEEN /hpf (5-10)
--- NOTE | 2018-07-21 18:39 | PCM.HP.STD ---
Problem List (1) Sepsis Status: Acute (2) Intractable perianal pain Status: Acute (3) Pancytopenia Status: Acute (4) Anal cancer Status: Chronic History of Present Illness Date of Admission: 07/21/18 Chief Complaint: Perianal/rectal pain. The patient is a 62 year old F with past medical history as mentioned above presented to the ED because of intractable rectal/perianal pain. This patient had a history of anal cancer, currently on chemotherapy which was completed around 1 week ago and nowadays, she is on radiation treatment. She has been having this rectal/perianal pain since she was started on radiation therapy but because of the consecutive sessions of radiation treatment, her pain got worse during the last few days. The pain is at the perianal and rectal area, goes up to the lower part of her labia majora, burning pain, 10 out of 10 in severity, not radiating, associated with difficulty urinating with burning sensation and sometimes, she is not able to urinate and without aggravating or relieving factors. She mentioned that the skin is sloughing and redness has been getting worse for the last several days. She denies fever or chills. She was started on Bactrim for UTI as outpatient. In the emergency department, she was afebrile, tachycardic which is likely because of pain, blood pressure was stable and pulse ox was maintained on room air. Routine blood work revealed pancytopenia, mild neutrophilia and potassium of 3.3. Her lactic acid was 2.1. LFT was normal. Urinalysis revealed cloudy urine, positive for nitrite and leukocyte esterase, there was 50-100 WBCs and 2+ bacteria. She is being admitted for intractable rectal/perianal pain with skin sloughing and desquamation as well as acute cystitis with sepsis. Past Medical History Past Medical History (Chronic Problems): Chronic Problems (Last Reviewed 04/18/18 @ 13:04 by Tanisha Birch) Anal cancer (Chronic) Medical History: Medical History (Last Reviewed 04/18/18 @ 13:04 by Tanisha Birch) Abdominal pain R10.9 H/O: hysterectomy Z90.710 Hemorrhoids K64.9 Allergies No Known Allergies Allergy (Verified 04/20/18 10:33) Home Medications: Ambulatory Orders Medication Instructions Recorded Hydrocodone/Acetaminophen [[place] 1 tab PO Q6H PRN PRN 07/21/18 5-325 Tablet] Pantoprazole Sodium [Protonix] 40 mg PO DAILY 07/21/18 Silver Sulfadiazine 1% Crm 1 applic TP BID 07/21/18 [Silvadene Cream] Smz/Tmp Ds [Bactrim Ds] 1 tab PO BID 07/21/18 proMETHazine tablet [Phenergan 25 mg PO PRN PRN 07/21/18 tablet] Surgical History: Surgical History (Last Reviewed 04/18/18 @ 13:04 by Tanisha Birch) Total knee replacement status Z96.659 Surgical History: hysterectomy, total knee arthroplasty Psychiatric History: No pertinent psych hx [employer] History: No pertinent [employer] history Lives: Spouse/ Significant Other Smoking Status: Never smoker Alcohol: None Drugs: None - *Family History Maternal Family History: Family History (Last Reviewed 04/18/18 @ 13:05 by Tanisha Birch) Mother Breast cancer Diabetes Grandmother Breast cancer Sister Breast cancer History Items: No pertinent history Paternal Family History: Family History (Last Reviewed 04/18/18 @ 13:05 by Tanisha Birch) Mother Breast cancer Diabetes Grandmother Breast cancer Sister Breast cancer History Items: No pertinent history Review of Systems Constitutional: Denies: Anorexia, Chills, Fever, Weakness Eyes: Denies: Blurred vision, Double vision, Drainage, Redness, Vision Change HEENT: Denies: Difficulty Hearing, Ear Pain, Eye Pain, Sore Throat Cardiovascular: Denies: Chest Pain, Chest Pressure, Chest Tightness, Edema, Heaviness, Palpitations, Syncope Respiratory: Denies: Cough, Pleuritic Pain, Shortness of Breath, Sputum production, Wheezing Gastrointestinal: Denies: Abdominal Pain, Constipation, Diarrhea, Nausea, Vomiting Genitourinary: Reports: Dysuria, Retention. Denies: Frequency, Hematuria Musculoskeletal: Denies: Arm Pain, Back Pain, Foot Pain Skin: Reports: Skin Changes. Denies: Dryness Neurological: Denies: Balance problems, Double vision, Change in Speech, Slurred speech, Confusion, Headaches, Incoordination, Numbness Psychiatric: Denies: Anxiety, Depression Endocrine: Denies: Change in Body Habitus, Polydipsia VTE Information - Inpt Only VTE Present on Admission: No VTE Mechan Device Prophylaxis: SCD's VTE Pharm Prophylaxis ordered?: No Patient Problems: Active and Suspected Problems (Last Reviewed 04/18/18 @ 13:04 by Tnaisha Birch) Sepsis (Acute) Intractable perianal pain (Acute) Pancytopenia (Acute) - Physical Exam General: Alert, Oriented x3, Cooperative, - - She is distressed because of significant pain. HEENT: Atraumatic, PERRLA, EOMI, Normocephalic Oral: Moist Mucosa, No Gingival or Mucosal Lesions/ Ulcerations Neck: Supple, No JVD, Negative Carotid Bruits, Trachea Midline, Thyroid Normal Size and Texture Lungs: Clear to auscultation, Normal air movement, No rhonchi, No wheeze, No rales Cardiovascular: Regular rate, Regular Rhythm, Normal S1, Normal S2, PMI Normal Abdomen: Bowel Sounds Present, Soft, Non Tender, Non-Distended, No Hepato-splenomegaly Extremities: No clubbing, No cyanosis, No edema Skin: Excoriated, - - Skin sloughing and desquamation of the perianal area extending up to the lower part of the labia majora with significant erythema. Lymphatic: No Cervical, Supraclavicular, or Inguinal Adenopathy Neurological: Cranial nerves II-XII grossly intact, Motor Exam 5/5 strength throughout Psych/Mental Status: Normal Affect, Appropriate, Alert and oriented to time, place, person, mood and affect Vital Signs Temp Pulse Resp BP Pulse Ox 98.8 F 79 16 117/71 98 07/21/18 17:00 07/21/18 17:00 07/21/18 17:00 07/21/18 17:00 07/21/18 17:00 Oxygen Delivery Method Room Air Weight: 171 lb Body Mass Index (BMI) 31.2 Intake and Output for Last 24 Hours 07/19/18 07/20/18 07/21/18 23:59 23:59 23:59 Output Total 30 / 30 Balance -30 / -30 Laboratory Tests Past 24 Hrs 07/21/18 07/21/18 07/21/18 16:10 16:10 16:10 WBC 2.0 L RBC 3.53 L Hgb 10.5 L Hct 31.4 L MCV 89.0 MCH 29.7 MCHC 33.4 RDW 16.1 H RDW Differential 51.2 H Plt Count 122 L MPV 9.6 Immature Gran % (Auto) 0.500 Neut % (Auto) 72.8 H Lymph % (Auto) 8.4 L [place] % (Auto) 9.9 Eos % (Auto) 7.9 H Baso % (Auto) 0.5 Absolute Neuts (auto) 1.5 L Absolute Lymphs (auto) 0.17 L Total Counted Not Reportable Differential Comment SEE COMMENT Platelet Estimate SLT DEC Anisocytosis RARE PT 13.4 INR 1.0 APTT 26.2 Sodium 138 Potassium 3.3 L Chloride 102 Carbon Dioxide 24.0 Anion Gap 12 BUN 12 Creatinine 0.97 Estim Creat Clear Calc 46.34 Est GFR (MDRD) Af Amer 74 Est GFR (MDRD) Non-Af 61 BUN/Creatinine Ratio 12.4 Glucose 150 H Lactic Acid Calcium 8.8 Total Bilirubin 0.50 AST 22 ALT 46 Alkaline Phosphatase 100 Total Protein 7.2 Albumin 3.7 Globulin 3.5 Albumin/Globulin Ratio 1.1 Urine Color Urine Clarity Urine pH Ur Specific [place] Urine Protein Urine Glucose (UA) Urine Ketones Urine Occult Blood Urine Nitrite Urine Bilirubin Urine Urobilinogen Ur Leukocyte Esterase Urine RBC Urine WBC Ur Squamous Epith Cells Urine Bacteria Urine Mucus 07/21/18 07/21/18 16:10 17:30 WBC RBC Hgb Hct MCV MCH MCHC RDW RDW Differential Plt Count MPV Immature Gran % (Auto) Neut % (Auto) Lymph % (Auto) [place] % (Auto) Eos % (Auto) Baso % (Auto) Absolute Neuts (auto) Absolute Lymphs (auto) Total Counted Differential Comment Platelet Estimate Anisocytosis PT INR APTT Sodium Potassium Chloride Carbon Dioxide Anion Gap BUN Creatinine Estim Creat Clear Calc Est GFR (MDRD) Af Amer Est GFR (MDRD) Non-Af BUN/Creatinine Ratio Glucose Lactic Acid 2.1 H Calcium Total Bilirubin AST ALT Alkaline Phosphatase Total Protein Albumin Globulin Albumin/Globulin Ratio Urine Color SEE COMMENT BELOW Urine Clarity Cloudy Urine pH 5.0 Ur Specific [place] 1.025 Urine Protein 100 H Urine Glucose (UA) Normal Urine Ketones Negative Urine Occult Blood 50 H Urine Nitrite Positive H Urine Bilirubin 3 H Urine Urobilinogen 4 H Ur Leukocyte Esterase 500 H Urine RBC 0-5 SEEN Urine WBC 50-100 SEEN Ur Squamous Epith Cells 0-5 SEEN Urine Bacteria 2+ Urine Mucus 1+ Assessment/Plan All Active Problems (Last Reviewed 04/18/18 @ 13:04 by Tanisha C Siders) Sepsis (Acute) Intractable perianal pain (Acute) Pancytopenia (Acute) This is a 62 years old female patient presented to the ED because of intractable rectal/perianal pain secondary to consecutive sessions of radiation therapy that she has been on for cancer, found to have findings consistent with acute cystitis with sepsis and she is being admitted for pain control and treatment of the acute cystitis. #1 intractable rectal/perianal pain: With skin sloughing and desquamation as mentioned above. No pus or drainage in the involved area. This is attributed to the radiation therapy for anal cancer. Initially, patient was tachycardic which is likely because of pain, other vital signs are stable. Routine blood work reviewed as above. Plan: Admit to [facility], IV fluids, IV morphine as needed for pain, OxyIR as needed for pain, topical lidocaine gel as needed for pain, Tylenol as needed, repeat CBC and BMP tomorrow morning. #2 acute cystitis/sepsis: Urinalysis reviewed, lactic acid slightly elevated and she is leukopenic and her ANC was 1500. She is afebrile. Urine and blood culture sent. Plan: Start IV Rocephin, monitor urine and blood cultures, repeat CBC tomorrow. #3 pancytopenia: Secondary to chemotherapy. Her ANC is 1500, afebrile. Plan as above, IV antibiotics, cultures, repeat CBC tomorrow morning. #4 anal cancer: Completed chemotherapy around 1 year ago, currently on radiation treatment. Plan as above. She has been following up with Dr. MINER as outpatient. #5 DVT prophylaxis: SCDs. No chemical prophylaxis because of thrombocytopenia. This note was generated with [employer] software. It may contain incorrect words, spelling, and punctuation that were not noted in checking the note before signing. Code Visit Inpatient E&M: 41403 Init Hosp L3
[2018-07-21] MEDS: Ceftriaxone 1 GM/50 ML BAG IV (18:52)
[2018-07-21 18:54] VITALS: BP 111/82; PULSE 79; PULSE 81; RESP 16; O2SAT 94
[2018-07-21 19:17] VITALS: BMI 31.3
[2018-07-21 19:22] VITALS: BP 114/53; PULSE 83; RESP 18; TEMP 37.2; O2SAT 100
[2018-07-21 19:28] VITALS: BMI 31.3
[2018-07-21] MEDS: Morphine 2 MG/ML Syringe IV ×2 (19:53→23:55)
[2018-07-21] MEDS: 0.9% Normal Saline 1,000 ML 100 ML IV (19:59)
[2018-07-21 20:27] LABS: Reflex Lactate? Y
[2018-07-21 21:38] LABS: Lactic Acid 1.3 mmol/L (0.4-2.0)
[2018-07-21] MEDS: oxyCODONE 5 MG Tablet PO (21:42)
--- NOTE | 2018-07-22 00:17 | NURSING ---
Bladder scanned patient for 715 ml in bladder. Encouraged patient to get up to Bedside commode to urinate. Pt. attempted urination but as soon as the urine begins to come it olivares so badly pt. stops trying. Pt. refusing to continue to try and urinate. Mentioned trying to straight catherize to empty bladder but pt. is refusing. Pt states that she would have to be sedated in order to put in straight cath or powell catheter. Hospitalist notified of patient refusing to urinate or a powell catheter at this time. Silver Sulfadiazine ordered for topical application of perirectal area and Dilaudid ordered for pain.
--- NOTE | 2018-07-22 00:34 | NURSING ---
Pt. requesting to attempt straight cath at this time. Obtained straight cath order from hospitalist.
[2018-07-22] MEDS: Silver Sulfadiazine 1% Crm 50 gm Bottle 1 APPLIC TOPICAL ×3 (00:39→22:44)
[2018-07-22 02:00] VITALS: BP 117/52; PULSE 91; RESP 16; TEMP 36.8; O2SAT 99
[2018-07-22] MEDS: HYDROmorphone 0.5 MG/0.5 ML SYRINGE IV ×2 (05:03→15:44)
[2018-07-22 07:06] LABS: Absolute Lymphocyte Count 0.15 X10^3/ul (0.83-4.51); Absolute Neutrophil Count 0.9 X10^3/uL (2.0-7.7); Basophil# 0.03 X10^3/uL; Basophil% 2.1 % (0-1); Eosinophil# 0.14 X10^3/uL; Eosinophils% 9.7 % (0-5); Hemoglobin 8.4 g/dl (12.0-15.0); Lymphocyte # 0.15 X10^3/ul (4.0); Lymphocyte % 10.4 % (19-41); Mean Corp Hgb Conc 32.3 g/gl (32-36); Mean Corpuscular Hgb 29.7 pg (27.0-32.0); Mean Corpuscular Volume 91.9 fL (81-99); Mean Platelet Vol. 9.6 fl (6.2-12.0); Monocyte# 0.25 X10^3/uL; Monocyte% 17.4 % (0-10); Neutrophil # 0.87 X10^3/uL (2.7-7.7); Neutrophil % 60.4 % (47-70); Platelet Count 83 K/mm3 (150-450); RBC Distribution Width CV 15.7 % (11.6-14.6); Red Blood Count 2.83 M/mm3 (4.2-5.4); White Blood Count 1.4 K/mm3 (4.4-11.0)
[2018-07-22 07:08] VITALS: O2SAT 95
[2018-07-22 07:25] LABS: Anion Gap 7 (5-15); BUN 9 mg/dL (7-18); BUN/Creat Ratio 13.2 RATIO (10-20); Calcium,Total 7.8 mg/dL (8.5-10.1); Chloride 109 mmol/L (98-107); Creatinine, Serum 0.68 mg/dL (0.55-1.02); Differential Indicated SCAN CRITERIA MET; EST Glomerular Filtration Rate 92 mL/min (>60); Est Glom Filt Rate - Afr Amer 112 mL/min (>60); Glucose 89 mg/dL (74-106); POSITIVE COUNT YES; POSITIVE DIFFERENTIAL YES; POSITIVE MORPHOLOGY NO; Potassium 3.6 mmol/L (3.5-5.1); Sodium Level 139 mmol/L (136-145)
[2018-07-22 07:34] LABS: Platelet Estimate MOD DEC (ADEQ)
[2018-07-22 07:35] LABS: Anisocytosis 2+
[2018-07-22 07:47] VITALS: BP 94/43; PULSE 76; RESP 16; TEMP 37.1; O2SAT 96
[2018-07-22] MEDS: Pantoprazole Sodium 40 MG Tablet PO (08:10)
--- NOTE | 2018-07-22 09:52 | PCM.PN.HOSP ---
Patient Problems: Active and Suspected Problems (Last Reviewed 04/18/18 @ 13:04 by Tanisha Birch) Sepsis (Acute) Intractable perianal pain (Acute) Pancytopenia (Acute) Subjective: Still with pain and pruritis around vulva, urethra and anus. Sloughed skin associated with radiation. Vitals/I&O's: Vital Signs Temp Pulse Resp BP Pulse Ox 37.1 C 76 16 94/43 L 96 07/22/18 07:47 07/22/18 07:47 07/22/18 07:47 07/22/18 07:47 07/22/18 07:47 Oxygen Delivery Method Room Air Weight: 77.7 kg Body Mass Index (BMI) 31.3 Intake and Output for Last 24 Hours 07/20/18 07/21/18 07/22/18 23:59 23:59 23:59 Intake Total 986 / 986 Output Total 800 / 800 Balance -30 / -30 186 / 186 General: Alert, No apparent distress HEENT: Atraumatic, Normocephalic Oral: Moist Mucosa, No Gingival or Mucosal Lesions/ Ulcerations Neck: No Nodes, Thyroid Normal Size and Texture Lungs: Clear to auscultation, Normal air movement, No rhonchi, No wheeze Cardiovascular: Regular rate, Regular Rhythm, Normal S1, Normal S2, No murmurs Abdomen: Bowel Sounds Present, Soft, Non Tender, Non-Distended, No Hepato-splenomegaly Extremities: No edema, No Calf Tenderness Skin: - - sloughed skin around vulva and proximal/medial thighs (female nurse present during evaluation). Psych/Mental Status: Normal Affect, Appropriate Laboratory Results 07/21/18 16:10: WBC 2.0 L, RBC 3.53 L, Hgb 10.5 L, Hct 31.4 L, MCV 89.0, MCH 29.7, MCHC 33.4, RDW 16.1 H, RDW Differential 51.2 H, Plt Count 122 L, MPV 9.6, Immature Gran % (Auto) 0.500, Neut % (Auto) 72.8 H, Lymph % (Auto) 8.4 L, [place] % (Auto) 9.9, Eos % (Auto) 7.9 H, Baso % (Auto) 0.5, Absolute Neuts (auto) 1.5 L, Absolute Lymphs (auto) 0.17 L, Total Counted Not Reportable, Differential Comment SEE COMMENT, Platelet Estimate SLT DEC, Anisocytosis RARE 07/21/18 16:10: PT 13.4, INR 1.0, APTT 26.2 07/21/18 16:10: Sodium 138, Potassium 3.3 L, Chloride 102, Carbon Dioxide 24.0, Anion Gap 12, BUN 12, Creatinine 0.97, Estim Creat Clear Calc 46.34, Est GFR (MDRD) Af Amer 74, Est GFR (MDRD) Non-Af 61, BUN/Creatinine Ratio 12.4, Glucose 150 H, Calcium 8.8, Total Bilirubin 0.50, AST 22, ALT 46, Alkaline Phosphatase 100, Total Protein 7.2, Albumin 3.7, Globulin 3.5, Albumin/Globulin Ratio 1.1 07/21/18 16:10: Lactic Acid 2.1 H 07/21/18 17:30: Urine Color SEE COMMENT BELOW, Urine Clarity Cloudy, Urine pH 5.0, Ur Specific [place] 1.025, Urine Protein 100 H, Urine Glucose (UA) Normal, Urine Ketones Negative, Urine Occult Blood 50 H, Urine Nitrite Positive H, Urine Bilirubin 3 H, Urine Urobilinogen 4 H, Ur Leukocyte Esterase 500 H, Urine RBC 0-5 SEEN, Urine WBC 50-100 SEEN, Ur Squamous Epith Cells 0-5 SEEN, Urine Bacteria 2+, Urine Mucus 1+ 07/21/18 21:01: Lactic Acid 1.3 07/22/18 06:25: WBC 1.4 L*, RBC 2.83 L, Hgb 8.4 L, Hct 26.0 L, MCV 91.9, MCH 29.7, MCHC 32.3, RDW 15.7 H, RDW Differential 50.0 H, Plt Count 83 L, MPV 9.6, Immature Gran % (Auto) 0.000, Neut % (Auto) 60.4, Lymph % (Auto) 10.4 L, [place] % (Auto) 17.4 H, Eos % (Auto) 9.7 H, Baso % (Auto) 2.1 H, Absolute Neuts (auto) 0.9 L, Absolute Lymphs (auto) 0.15 L, Total Counted Not Reportable, Differential Comment , Diff Path Review May foll, Platelet Estimate MOD DEC, Anisocytosis 2+ 01/25/19 06:25: Sodium 139, Potassium 3.6, Chloride 109 H, Carbon Dioxide 23.0, Anion Gap 7, BUN 9, Creatinine 0.68, Estim Creat Clear Calc 66.10, Est GFR (MDRD) Af Amer 112, Est GFR (MDRD) Non-Af 92, BUN/Creatinine Ratio 13.2, Glucose 89, Calcium 7.8 L Current Medications Acetaminophen (Tylenol) 650 mg PO Q6H PRN PRN PRN Reason: Fever, headache, pain Hydromorphone HCl (Dilaudid Inj) 0.5 mg IV Q4H PRN PRN PRN Reason: SEVERE PAIN (6-10/10) Last Admin: 07/22/18 05:03 Dose: 0.5 mg Ceftriaxone Sodium (Rocephin) 1 gm in 50 mls @ 100 mls/hr IV Q24 RIP Lidocaine (Lidocaine 5%) 4 gm TOPICAL Q4H PRN PRN; Protocol PRN Reason: perianal irritation Magnesium Hydroxide (Milk Of Magnesia) 30 ml PO DAILY PRN PRN PRN Reason: Constipation Nutritional Formula (Lactose Free) (Ensure Clear) 120 ml PO TIDCM [facility] Last Admin: 07/22/18 08:17 Dose: 120 ml Ondansetron HCl (Zofran) 4 mg IV Q6H PRN PRN PRN Reason: NAUSEA/VOMITING Oxycodone HCl (Oxyir) 5 mg PO Q4H PRN PRN Reason: SEVERE PAIN (6-10/10) Pantoprazole Sodium (Protonix) 40 mg PO DAILY [facility] Last Admin: 07/22/18 08:10 Dose: 40 mg Promethazine HCl (Phenergan Tablet) 25 mg PO Q8H PRN PRN Reason: NAUSEA Silver Sulfadiazine (Silvadene (Bkc)) 1 applic TOPICAL BID [facility]; Protocol Last Admin: 07/22/18 08:10 Dose: 1 applicatio Sodium Chloride () 5 - 15 ml IV UD PRN PRN Reason: SALINE FLUSH Medical Necessity - Tobacco Use Smoking Status: Former smoker Assessment/Plan All Active Problems (Last Reviewed 04/18/18 @ 13:04 by Tanisha Birch) Sepsis (Acute) Intractable perianal pain (Acute) Pancytopenia (Acute) 1. UTI: continue CTX follow up cultures. has overflow incontinence because of intentionally holding urine because the dysuria is too intense. was straight cathed this AM. Decline powell. Will see if requires additional straight cath. start pyridium 2. Sepsis severe present on admission 2/2 UTI resolved 3. 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 Additional radiation treatments on hold until skin heals supportive mgmt wound care 4. pancytopenia 2/2 chemotherapy, which she has completed leukopenia making patient more susceptible to infection. ANC 900. Monitor for now. No need for RBCs, platelets or granix 5. Anal cancer completed chemo radiation on hold follow up with Drs. Francisco (med onc) and Sreekanth (rad onc) as outpt. 6. DVT proph SCDs Code Visit Inpatient E&M: 03039 Subs Hosp L2
[2018-07-22] MEDS: Ceftriaxone 1 GM/50 ML BAG IV (10:01)
[2018-07-22] MEDS: oxyCODONE 5 MG Tablet PO ×3 (10:01→19:54)
[2018-07-22] MEDS: 0.9% NaCl Peripheral Flush Adult/Peds IV ×2 (10:02→15:44)
--- NOTE | 2018-07-22 10:07 | PN_ITS ---
Patient Problems: Active and Suspected Problems (Last Reviewed 04/18/18 @ 13:04 by Tanisha Birch) Sepsis (Acute) Intractable perianal pain (Acute) Pancytopenia (Acute) Subjective: Still with pain and pruritis around vulva, urethra and anus. Sloughed skin associated with radiation. Vitals/I&O's: Vital Signs Temp Pulse Resp BP Pulse Ox 37.1 C 76 16 94/43 L 96 07/22/18 07:47 07/22/18 07:47 07/22/18 07:47 07/22/18 07:47 07/22/18 07:47 Oxygen Delivery Method Room Air Weight: 77.7 kg Body Mass Index (BMI) 31.3 Intake and Output for Last 24 Hours 07/20/18 07/21/18 07/22/18 23:59 23:59 23:59 Intake Total 986 / 986 Output Total 800 / 800 Balance -30 / -30 186 / 186 General: Alert, No apparent distress HEENT: Atraumatic, Normocephalic Oral: Moist Mucosa, No Gingival or Mucosal Lesions/ Ulcerations Neck: No Nodes, Thyroid Normal Size and Texture Lungs: Clear to auscultation, Normal air movement, No rhonchi, No wheeze Cardiovascular: Regular rate, Regular Rhythm, Normal S1, Normal S2, No murmurs Abdomen: Bowel Sounds Present, Soft, Non Tender, Non-Distended, No Hepato- splenomegaly Extremities: No edema, No Calf Tenderness Skin: - - sloughed skin around vulva and proximal/medial thighs (female nurse present during evaluation). Psych/Mental Status: Normal Affect, Appropriate Laboratory Results 07/21/18 16:10: WBC 2.0 L, RBC 3.53 L, Hgb 10.5 L, Hct 31.4 L, MCV 89.0, MCH 29.7, MCHC 33.4, RDW 16.1 H, RDW Differential 51.2 H, Plt Count 122 L, MPV 9.6, Immature Gran % (Auto) 0.500, Neut % (Auto) 72.8 H, Lymph % (Auto) 8.4 L, [place] % (Auto) 9.9, Eos % (Auto) 7.9 H, Baso % (Auto) 0.5, Absolute Neuts (auto) 1.5 L, Absolute Lymphs (auto) 0.17 L, Total Counted Not Reportable, Differential Comment SEE COMMENT, Platelet Estimate SLT DEC, Anisocytosis RARE 07/21/18 16:10: PT 13.4, INR 1.0, APTT 26.2 07/21/18 16:10: Sodium 138, Potassium 3.3 L, Chloride 102, Carbon Dioxide 24.0, Anion Gap 12, BUN 12, Creatinine 0.97, Estim Creat Clear Calc 46.34, Est GFR (MDRD) Af Amer 74, Est GFR (MDRD) Non-Af 61, BUN/Creatinine Ratio 12.4, Glucose 150 H, Calcium 8.8, Total Bilirubin 0.50, AST 22, ALT 46, Alkaline Phosphatase 100, Total Protein 7.2, Albumin 3.7, Globulin 3.5, Albumin/Globulin Ratio 1.1 07/21/18 16:10: Lactic Acid 2.1 H 07/21/18 17:30: Urine Color SEE COMMENT BELOW, Urine Clarity Cloudy, Urine pH 5.0, Ur Specific [place] 1.025, Urine Protein 100 H, Urine Glucose (UA) Normal, Urine Ketones Negative, Urine Occult Blood 50 H, Urine Nitrite Positive H, Urine Bilirubin 3 H, Urine Urobilinogen 4 H, Ur Leukocyte Esterase 500 H, Urine RBC 0- 5 SEEN, Urine WBC 50-100 SEEN, Ur Squamous Epith Cells 0-5 SEEN, Urine Bacteria 2+, Urine Mucus 1+ 07/21/18 21:01: Lactic Acid 1.3 07/22/18 06:25: WBC 1.4 L*, RBC 2.83 L, Hgb 8.4 L, Hct 26.0 L, MCV 91.9, MCH 29.7, MCHC 32.3, RDW 15.7 H, RDW Differential 50.0 H, Plt Count 83 L, MPV 9.6, Immature Gran % (Auto) 0.000, Neut % (Auto) 60.4, Lymph % (Auto) 10.4 L, [place] % (Auto) 17.4 H, Eos % (Auto) 9.7 H, Baso % (Auto) 2.1 H, Absolute Neuts (auto) 0.9 L, Absolute Lymphs (auto) 0.15 L, Total Counted Not Reportable, Differential Comment , Diff Path Review May foll, Platelet Estimate MOD DEC, Anisocytosis 2+ 01/25/19 06:25: Sodium 139, Potassium 3.6, Chloride 109 H, Carbon Dioxide 23.0, Anion Gap 7, BUN 9, Creatinine 0.68, Estim Creat Clear Calc 66.10, Est GFR (MDRD) Af Amer 112, Est GFR (MDRD) Non-Af 92, BUN/Creatinine Ratio 13.2, Glucose 89, Calcium 7.8 L Current Medications Acetaminophen (Tylenol) 650 mg PO Q6H PRN PRN PRN Reason: Fever, headache, pain Hydromorphone HCl (Dilaudid Inj) 0.5 mg IV Q4H PRN PRN PRN Reason: SEVERE PAIN (6-10/10) Last Admin: 07/22/18 05:03 Dose: 0.5 mg Ceftriaxone Sodium (Rocephin) 1 gm in 50 mls @ 100 mls/hr IV Q24 RIP Lidocaine (Lidocaine 5%) 4 gm TOPICAL Q4H PRN PRN; Protocol PRN Reason: perianal irritation Magnesium Hydroxide (Milk Of Magnesia) 30 ml PO DAILY PRN PRN PRN Reason: Constipation Nutritional Formula (Lactose Free) (Ensure Clear) 120 ml PO TIDCM [facility] Last Admin: 07/22/18 08:17 Dose: 120 ml Ondansetron HCl (Zofran) 4 mg IV Q6H PRN PRN PRN Reason: NAUSEA/VOMITING Oxycodone HCl (Oxyir) 5 mg PO Q4H PRN PRN Reason: SEVERE PAIN (6-10/10) Pantoprazole Sodium (Protonix) 40 mg PO DAILY [facility] Last Admin: 07/22/18 08:10 Dose: 40 mg Promethazine HCl (Phenergan Tablet) 25 mg PO Q8H PRN PRN Reason: NAUSEA Silver Sulfadiazine (Silvadene (Bkc)) 1 applic TOPICAL BID [facility]; Protocol Last Admin: 07/22/18 08:10 Dose: 1 applicatio Sodium Chloride () 5 - 15 ml IV UD PRN PRN Reason: SALINE FLUSH Medical Necessity - Tobacco Use Smoking Status: Former smoker Assessment/Plan All Active Problems (Last Reviewed 04/18/18 @ 13:04 by Tanisha Birch) Sepsis (Acute) Intractable perianal pain (Acute) Pancytopenia (Acute) 1. UTI: continue CTX follow up cultures. has overflow incontinence because of intentionally holding urine because the dysuria is too intense. was straight cathed this AM. Decline powell. Will see if requires additional straight cath. start pyridium 2. Sepsis severe present on admission 2/2 UTI resolved 3. 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 Additional radiation treatments on hold until skin heals supportive mgmt wound care 4. pancytopenia 2/2 chemotherapy, which she has completed leukopenia making patient more susceptible to infection. ANC 900. Monitor for now. No need for RBCs, platelets or granix 5. Anal cancer completed chemo radiation on hold follow up with Drs. Francisco (med onc) and Sreekanth (rad onc) as outpt. 6. DVT proph SCDs Code Visit Inpatient E&M: 20651 Subs Hosp L2
--- NOTE | 2018-07-22 10:10 | CASEMGMT ---
RN CM Face to Face with patient for initial transition planning/care coordination assessment. RN CM introduced self and role at [facility]. Patient lying in bed, alert and oriented. Patient willing to participate in assessment and is able to answer all questions appropriately. Care providers, pharmacy, and demographics verified. Patient wishes to discharge home, denies need for home health at this time. Patient states she has no further needs or concerns at this time. CM to follow for discharge planning needs that may arise. PCP: [facility] Specialists: Sreekanth, radiologist; Delfin, surgeon [facility] Preferred [facility]acy: [facility] Insurance: Room 77 Prescription Benefit: Yes Living Will/HPOA: None LNOK: , daughter, son Living Arrangements: Patient lives with in 2 story home with bed and bath on first floor. Patient is independent. Transportation: self/daughters DME/HHC: Patient has cane, denies further DME needs. No previous HHC/SNF Disposition Plan: Patient to discharge home with family support and follow-up plans in place. Lara MITCHELL, RN, CM
--- NOTE | 2018-07-22 10:34 | NURSING ---
Was asked to see patient for radiation olivares to the upper inner thighs, labia, and buttocks. Pt has a history of rectal cancer. patient states that she was unable to urinate at home for 2 days d/t the pain and then developed a urinary tract infection. there are open blistered areas to the upper inner thighs. patient has been using silvadene at home. would recommend continuing with the silvadene and trying to air out the area as much as possible. patient states she feels there is a slight improvement. patient denies further needs at this time.
[2018-07-22 13:49] VITALS: BP 107/46; PULSE 87; RESP 18; TEMP 37.7; O2SAT 97
[2018-07-22] MEDS: Phenazopyridine 95 MG Tablet 190 MG PO ×2 (13:52→21:54)
--- NOTE | 2018-07-22 14:15 | CASEMGMT ---
Social Work Note SW saw pt for support as pt has history of rectal cancer. SW met with pt. SW introduced self and role at [facility]. Pt is alert and orientated x4. Pt has guest present in room but gave this worker permission to speak to her in front of her guest. Pt states that she feels supportive as she has good supportive friends and family. Pt identifies her three children and their spouses as being good support for her. Pt denied history of mental health. Pt states she is doing ok and denied wanting additional resources. Lara Villa ICHTHYOLOGIST, HOT METAL CAR OPERATOR
[2018-07-22 19:48] VITALS: BP 112/44; PULSE 83; RESP 16; TEMP 36.9; O2SAT 100
[2018-07-22] MEDS: Acetaminophen 325 MG Tablet 650 MG PO (19:54)
[2018-07-23] MEDS: Ondansetron 4 MG/2 ML Vial IV (00:54)
[2018-07-23] MEDS: HYDROmorphone 0.5 MG/0.5 ML SYRINGE IV ×3 (00:56→15:19)
[2018-07-23 02:00] VITALS: BP 106/44; PULSE 83; RESP 16; TEMP 36.9; O2SAT 94
[2018-07-23] MEDS: Phenazopyridine 95 MG Tablet 190 MG PO ×3 (06:23→22:20)
[2018-07-23 07:04] LABS: Absolute Lymphocyte Count 0.13 X10^3/ul (0.83-4.51); Absolute Neutrophil Count 0.7 X10^3/uL (2.0-7.7); Basophil# 0.01 X10^3/uL; Basophil% 0.8 % (0-1); Eosinophil# 0.14 X10^3/uL; Eosinophils% 11.2 % (0-5); Hematocrit 26.3 % (37-47); Hemoglobin 8.6 g/dl (12.0-15.0); Lymphocyte # 0.13 X10^3/ul (4.0); Lymphocyte % 10.4 % (19-41); Mean Corp Hgb Conc 32.7 g/gl (32-36); Mean Corpuscular Hgb 29.8 pg (27.0-32.0); Mean Platelet Vol. 8.6 fl (6.2-12.0); Monocyte# 0.27 X10^3/uL; Monocyte% 21.6 % (0-10); Platelet Count 77 K/mm3 (150-450); RBC Distribution Width CV 16.3 % (11.6-14.6); RBC Distribution Width SD 53.1 fl (35.1-43.9); Red Blood Count 2.89 M/mm3 (4.2-5.4)
[2018-07-23 07:10] LABS: White Blood Count 1.3 K/mm3 (4.4-11.0)
[2018-07-23 07:11] LABS: Differential Indicated SCAN CRITERIA MET; POSITIVE COUNT YES; POSITIVE DIFFERENTIAL YES; POSITIVE MORPHOLOGY NO
[2018-07-23 07:18] LABS: Differential Comment SCANNED; Ovalocyte RARE; Platelet Estimate MOD DEC (ADEQ)
[2018-07-23 07:24] VITALS: O2SAT 94
[2018-07-23 07:27] LABS: Anion Gap 9 (5-15); BUN 10 mg/dL (7-18); BUN/Creat Ratio 15.9 RATIO (10-20); Calcium,Total 8.3 mg/dL (8.5-10.1); Chloride 108 mmol/L (98-107); Creatinine, Serum 0.63 mg/dL (0.55-1.02); EST Glomerular Filtration Rate 101 mL/min (>60); Est Glom Filt Rate - Afr Amer 123 mL/min (>60); Estimated Creatinine Clearance 71.35 ml/min; Glucose 93 mg/dL (74-106); Potassium 3.3 mmol/L (3.5-5.1); Sodium Level 142 mmol/L (136-145)
--- NOTE | 2018-07-23 08:37 | PCM.PN.HOSP ---
Patient Problems: Active and Suspected Problems (Last Reviewed 04/18/18 @ 13:04 by Tanisha Birch) Sepsis (Acute) Intractable perianal pain (Acute) Pancytopenia (Acute) Subjective: still with pain and discomfort on legs and vulva--no change. still with dysuria. tells nursing when she needs to urinate, then is straight cathed, though did have an episode of incontinence x1. Vitals/I&O's: Vital Signs Temp Pulse Resp BP Pulse Ox 36.9 C 83 16 106/44 L 94 07/23/18 02:00 07/23/18 02:00 07/23/18 02:00 07/23/18 02:00 07/23/18 07:24 Oxygen Delivery Method Room Air Weight: 77.7 kg Body Mass Index (BMI) 31.3 Intake and Output for Last 24 Hours 07/21/18 07/22/18 07/23/18 23:59 23:59 23:59 Intake Total 1936 / 1936 200 / 200 Output Total 1350 / 1350 400 / 400 Balance -30 / 586 / 586 -200 / -200 General: Alert, No apparent distress HEENT: Atraumatic, Normocephalic Oral: Moist Mucosa, No Gingival or Mucosal Lesions/ Ulcerations Neck: No Nodes, Thyroid Normal Size and Texture Lungs: Clear to auscultation, Normal air movement, No rhonchi, No wheeze Cardiovascular: Regular rate, Regular Rhythm, Normal S1, Normal S2 Abdomen: Bowel Sounds Present, Soft, Non Tender, Non-Distended, No Hepato-splenomegaly Extremities: No edema, No Calf Tenderness Skin: - - medial proximal thigh lesions w/o surrounding erythema. decreased vulvar erythema. Psych/Mental Status: Normal Affect, Appropriate Microbiology Past 72 Hours 07/21/18 17:30 Urine, Clean Catch Urine Culture - Final Mixed Gram Positive Organisms Laboratory Results 07/23/18 06:22: WBC 1.3 L*, RBC 2.89 L, Hgb 8.6 L, Hct 26.3 L, MCV 91.0, MCH 29.8, MCHC 32.7, RDW 16.3 H, RDW Differential 53.1 H, Plt Count 77 L, MPV 8.6, Immature Gran % (Auto) 0.000, Neut % (Auto) 56.0, Lymph % (Auto) 10.4 L, [place] % (Auto) 21.6 H, Eos % (Auto) 11.2 H, Baso % (Auto) 0.8, Absolute Neuts (auto) 0.7 L, Absolute Lymphs (auto) 0.13 L, Total Counted Not Reportable, Differential Comment SCANNED, Diff Path Review May foll, Platelet Estimate MOD DEC, Ovalocytes RARE 07/23/18 06:22: Sodium 142, Potassium 3.3 L, Chloride 108 H, Carbon Dioxide 25.0, Anion Gap 9, BUN 10, Creatinine 0.63, Estim Creat Clear Calc 71.35, Est GFR (MDRD) Af Amer 123, Est GFR (MDRD) Non-Af 101, BUN/Creatinine Ratio 15.9, Glucose 93, Calcium 8.3 L Current Medications Acetaminophen (Tylenol) 650 mg PO Q6H PRN PRN PRN Reason: Fever, headache, pain Last Admin: 07/22/18 19:54 Dose: 650 mg Hydromorphone HCl (Dilaudid Inj) 0.5 mg IV Q4H PRN PRN PRN Reason: SEVERE PAIN (6-10/10) Last Admin: 07/23/18 00:56 Dose: 0.5 mg Ceftriaxone Sodium (Rocephin) 1 gm in 50 mls @ 100 mls/hr IV Q24 [facility] Last Admin: 07/22/18 10:01 Dose: 100 mls/hr Lidocaine (Lidocaine 5%) 4 gm TOPICAL Q4H PRN PRN; Protocol PRN Reason: perianal irritation Magnesium Hydroxide (Milk Of Magnesia) 30 ml PO DAILY PRN PRN PRN Reason: Constipation Nutritional Formula (Lactose Free) (Ensure Clear) 120 ml PO TIDCM [facility] Last Admin: 07/22/18 15:27 Dose: 120 ml Ondansetron HCl (Zofran) 4 mg IV Q6H PRN PRN PRN Reason: NAUSEA/VOMITING Last Admin: 07/23/18 00:54 Dose: 4 mg Oxycodone HCl (Oxyir) 5 mg PO Q4H PRN PRN Reason: SEVERE PAIN (6-10/10) Last Admin: 07/22/18 19:54 Dose: 5 mg Pantoprazole Sodium (Protonix) 40 mg PO DAILY [facility] Last Admin: 07/22/18 08:10 Dose: 40 mg Phenazopyridine HCl (Azo Standard) 190 mg PO TID RIP Stop: 07/24/18 06:01 Last Admin: 07/23/18 06:23 Dose: 190 mg Promethazine HCl (Phenergan Tablet) 25 mg PO Q8H PRN PRN Reason: NAUSEA Silver Sulfadiazine (Silvadene (Bkc)) 1 applic TOPICAL BID RIP; Protocol Last Admin: 07/22/18 22:44 Dose: 1 applicatio Sodium Chloride () 5 - 15 ml IV UD PRN PRN Reason: SALINE FLUSH Last Admin: 07/22/18 15:44 Dose: 10 ml Medical Necessity - Tobacco Use Smoking Status: Former smoker Assessment/Plan All Active Problems (Last Reviewed 04/18/18 @ 13:04 by Tanisha Birch) Sepsis (Acute) Intractable perianal pain (Acute) Pancytopenia (Acute) 1. UTI: continue CTX follow up cultures. has overflow incontinence because of intentionally holding urine because the dysuria is too intense. was straight cathed this AM. Decline powell. Will see if requires additional straight cath. start pyridium 2. Sepsis severe present on admission 2/2 UTI resolved 3. 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 Additional radiation treatments on hold until skin heals supportive mgmt wound care Silvadene cream, keep area dry (which is difficult given the location) 4. pancytopenia 2/2 chemotherapy, which she has completed leukopenia making patient more susceptible to infection. ANC 700 Monitor for now. No need for RBCs, platelets or granix 5. Anal cancer completed chemo radiation on hold follow up with Drs. Francisco (med onc) and Sreekanth (rad onc) as outpt. 6. DVT proph SCDs Code Visit Inpatient E&M: [id number] Subs Hosp L2
--- NOTE | 2018-07-23 08:40 | PN_ITS ---
Patient Problems: Active and Suspected Problems (Last Reviewed 04/18/18 @ 13:04 by Tanisha Birch) Sepsis (Acute) Intractable perianal pain (Acute) Pancytopenia (Acute) Subjective: still with pain and discomfort on legs and vulva--no change. still with dysuria. tells nursing when she needs to urinate, then is straight cathed, though did have an episode of incontinence x1. Vitals/I&O's: Vital Signs Temp Pulse Resp BP Pulse Ox 36.9 C 83 16 106/44 L 94 07/23/18 02:00 07/23/18 02:00 07/23/18 02:00 07/23/18 02:00 07/23/18 07:24 Oxygen Delivery Method Room Air Weight: 77.7 kg Body Mass Index (BMI) 31.3 Intake and Output for Last 24 Hours 07/21/18 07/22/18 07/23/18 23:59 23:59 23:59 Intake Total 1936 / 1936 200 / 200 Output Total 1350 / 1350 400 / 400 Balance -30 / 586 / 586 -200 / -200 General: Alert, No apparent distress HEENT: Atraumatic, Normocephalic Oral: Moist Mucosa, No Gingival or Mucosal Lesions/ Ulcerations Neck: No Nodes, Thyroid Normal Size and Texture Lungs: Clear to auscultation, Normal air movement, No rhonchi, No wheeze Cardiovascular: Regular rate, Regular Rhythm, Normal S1, Normal S2 Abdomen: Bowel Sounds Present, Soft, Non Tender, Non-Distended, No Hepato- splenomegaly Extremities: No edema, No Calf Tenderness Skin: - - medial proximal thigh lesions w/o surrounding erythema. decreased vulvar erythema. Psych/Mental Status: Normal Affect, Appropriate Microbiology Past 72 Hours 07/21/18 17:30 Urine, Clean Catch Urine Culture - Final Mixed Gram Positive Organisms Laboratory Results 07/23/18 06:22: WBC 1.3 L*, RBC 2.89 L, Hgb 8.6 L, Hct 26.3 L, MCV 91.0, MCH 29.8, MCHC 32.7, RDW 16.3 H, RDW Differential 53.1 H, Plt Count 77 L, MPV 8.6, Immature Gran % (Auto) 0.000, Neut % (Auto) 56.0, Lymph % (Auto) 10.4 L, [place] % (Auto) 21.6 H, Eos % (Auto) 11.2 H, Baso % (Auto) 0.8, Absolute Neuts (auto) 0.7 L, Absolute Lymphs (auto) 0.13 L, Total Counted Not Reportable, Differential Comment SCANNED, Diff Path Review May foll, Platelet Estimate MOD DEC, Ovalocytes RARE 07/23/18 06:22: Sodium 142, Potassium 3.3 L, Chloride 108 H, Carbon Dioxide 25.0, Anion Gap 9, BUN 10, Creatinine 0.63, Estim Creat Clear Calc 71.35, Est GFR (MDRD) Af Amer 123, Est GFR (MDRD) Non-Af 101, BUN/Creatinine Ratio 15.9, Glucose 93, Calcium 8.3 L Current Medications Acetaminophen (Tylenol) 650 mg PO Q6H PRN PRN PRN Reason: Fever, headache, pain Last Admin: 07/22/18 19:54 Dose: 650 mg Hydromorphone HCl (Dilaudid Inj) 0.5 mg IV Q4H PRN PRN PRN Reason: SEVERE PAIN (6-10/10) Last Admin: 07/23/18 00:56 Dose: 0.5 mg Ceftriaxone Sodium (Rocephin) 1 gm in 50 mls @ 100 mls/hr IV Q24 [facility] Last Admin: 07/22/18 10:01 Dose: 100 mls/hr Lidocaine (Lidocaine 5%) 4 gm TOPICAL Q4H PRN PRN; Protocol PRN Reason: perianal irritation Magnesium Hydroxide (Milk Of Magnesia) 30 ml PO DAILY PRN PRN PRN Reason: Constipation Nutritional Formula (Lactose Free) (Ensure Clear) 120 ml PO TIDCM [facility] Last Admin: 07/22/18 15:27 Dose: 120 ml Ondansetron HCl (Zofran) 4 mg IV Q6H PRN PRN PRN Reason: NAUSEA/VOMITING Last Admin: 07/23/18 00:54 Dose: 4 mg Oxycodone HCl (Oxyir) 5 mg PO Q4H PRN PRN Reason: SEVERE PAIN (6-10/10) Last Admin: 07/22/18 19:54 Dose: 5 mg Pantoprazole Sodium (Protonix) 40 mg PO DAILY [facility] Last Admin: 07/22/18 08:10 Dose: 40 mg Phenazopyridine HCl (Azo Standard) 190 mg PO TID RIP Stop: 07/24/18 06:01 Last Admin: 07/23/18 06:23 Dose: 190 mg Promethazine HCl (Phenergan Tablet) 25 mg PO Q8H PRN PRN Reason: NAUSEA Silver Sulfadiazine (Silvadene (Bkc)) 1 applic TOPICAL BID RIP; Protocol Last Admin: 07/22/18 22:44 Dose: 1 applicatio Sodium Chloride () 5 - 15 ml IV UD PRN PRN Reason: SALINE FLUSH Last Admin: 07/22/18 15:44 Dose: 10 ml Medical Necessity - Tobacco Use Smoking Status: Former smoker Assessment/Plan All Active Problems (Last Reviewed 04/18/18 @ 13:04 by Tanisha Birch) Sepsis (Acute) Intractable perianal pain (Acute) Pancytopenia (Acute) 1. UTI: continue CTX follow up cultures. has overflow incontinence because of intentionally holding urine because the dy suria is too intense. was straight cathed this AM. Decline powell. Will see if requires additional straight cath. start pyridium 2. Sepsis severe present on admission 2/2 UTI resolved 3. 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 Additional radiation treatments on hold until skin heals supportive mgmt wound care Silvadene cream, keep area dry (which is difficult given the location) 4. pancytopenia 2/2 chemotherapy, which she has completed leukopenia making patient more susceptible to infection. ANC 700 Monitor for now. No need for RBCs, platelets or granix 5. Anal cancer completed chemo radiation on hold follow up with Drs. Francisco (med onc) and Sreekanth (rad onc) as outpt. 6. DVT proph SCDs Code Visit Inpatient E&M: 67630 Subs Hosp L2
[2018-07-23 08:45] VITALS: BP 99/50; PULSE 89; RESP 18; TEMP 37.1; O2SAT 97
[2018-07-23] MEDS: Pantoprazole Sodium 40 MG Tablet PO (08:50)
[2018-07-23] MEDS: Silver Sulfadiazine 1% Crm 50 gm Bottle 1 APPLIC TOPICAL ×2 (08:51→22:20)
[2018-07-23] MEDS: Ceftriaxone 1 GM/50 ML BAG IV (09:03)
--- NOTE | 2018-07-23 09:07 | NURSING ---
Pt feels full in her bladder and asking for her to be st. cathed. Order obtained. Pt refuses to have powell cath. Dilaudid given for pre-med as pt says it olivares 04/[address].
--- NOTE | 2018-07-23 09:30 | NURSING ---
Cathed per pt request. Only obtained 200cc of orange urine. pt did not tolerate well despite pre-medicating. stated it burned and was very tense the whole time cath was in. Although pt only voided 200cc, she states she no longer feels full.
[2018-07-23] MEDS: 0.9% NaCl Peripheral Flush Adult/Peds IV ×2 (11:36→15:18)
[2018-07-23] MEDS: oxyCODONE 5 MG Tablet PO ×2 (13:44→20:43)
[2018-07-23 14:17] VITALS: BP 124/43; PULSE 85; RESP 20; TEMP 36.8; O2SAT 96
--- NOTE | 2018-07-23 14:29 | NURSING ---
This nurse has educated pt many times today about straight caths VS powell. pt is concerned that labia is more swollen now then it was this morning. Nurse Explained st. cathing is probably causing irritation. After much education, pt wants to proceed with powell cath to see if it will help.
[2018-07-23 20:15] VITALS: BP 118/72; PULSE 91; RESP 16; TEMP 36.7; O2SAT 95
[2018-07-24] MEDS: Ondansetron 4 MG/2 ML Vial IV (01:41)
[2018-07-24 01:49] VITALS: BP 99/52; PULSE 92; RESP 18; TEMP 36.7; O2SAT 99
[2018-07-24] MEDS: Pantoprazole Sodium 40 MG Tablet PO (06:13)
[2018-07-24] MEDS: Phenazopyridine 95 MG Tablet 190 MG PO ×2 (06:13→12:28)
[2018-07-24 07:49] LABS: Absolute Lymphocyte Count 0.14 X10^3/ul (0.83-4.51); Absolute Neutrophil Count 0.7 X10^3/uL (2.0-7.7); Basophil# 0.01 X10^3/uL; Basophil% 0.7 % (0-1); Eosinophil# 0.19 X10^3/uL; Hematocrit 26.1 % (37-47); Hemoglobin 8.4 g/dl (12.0-15.0); Lymphocyte # 0.14 X10^3/ul (4.0); Lymphocyte % 9.6 % (19-41); Mean Corp Hgb Conc 32.2 g/gl (32-36); Mean Corpuscular Hgb 29.4 pg (27.0-32.0); Mean Corpuscular Volume 91.3 fL (81-99); Mean Platelet Vol. 8.4 fl (6.2-12.0); Monocyte# 0.42 X10^3/uL; Monocyte% 28.8 % (0-10); Neutrophil # 0.69 X10^3/uL (2.7-7.7); Neutrophil % 47.2 % (47-70); Platelet Count 68 K/mm3 (150-450); RBC Distribution Width CV 16.8 % (11.6-14.6); RBC Distribution Width SD 53.3 fl (35.1-43.9); Red Blood Count 2.86 M/mm3 (4.2-5.4); White Blood Count 1.5 K/mm3 (4.4-11.0)
[2018-07-24 07:50] LABS: Differential Indicated SCAN CRITERIA MET; POSITIVE COUNT YES; POSITIVE DIFFERENTIAL YES; POSITIVE MORPHOLOGY NO
[2018-07-24 07:55] VITALS: O2SAT 94
[2018-07-24 08:00] LABS: Anion Gap 8 (5-15); BUN 9 mg/dL (7-18); BUN/Creat Ratio 13.9 RATIO (10-20); Calcium,Total 8.2 mg/dL (8.5-10.1); Chloride 107 mmol/L (98-107); Creatinine, Serum 0.65 mg/dL (0.55-1.02); EST Glomerular Filtration Rate 97 mL/min (>60); Est Glom Filt Rate - Afr Amer 118 mL/min (>60); Estimated Creatinine Clearance 69.16 ml/min; Glucose 98 mg/dL (74-106); Potassium 3.3 mmol/L (3.5-5.1); Sodium Level 139 mmol/L (136-145)
[2018-07-24 08:02] LABS: Anisocytosis RARE; Hypochromasia 2+; Platelet Estimate MKD DEC (ADEQ); Polychromasia RARE
[2018-07-24] MEDS: Ceftriaxone 1 GM/50 ML BAG IV (08:22)
[2018-07-24] MEDS: Silver Sulfadiazine 1% Crm 50 gm Bottle 1 APPLIC TOPICAL (08:22)
[2018-07-24] MEDS: 0.9% NaCl Peripheral Flush Adult/Peds IV ×2 (08:24→12:03)
[2018-07-24 08:25] VITALS: BP 101/67; PULSE 78; RESP 18; TEMP 37.4; O2SAT 95
--- NOTE | 2018-07-24 08:29 | NURSING ---
Dr. Leonard and this nurse in with pt and both looked at morning labs. Order of Potassium po x1 for this morning obtained for Potassium of 3.3.
--- NOTE | 2018-07-24 11:34 | PCM.DC ---
- Discharge Diagnoses Current Active Problems: Current Active and Chronic Problems (Last Reviewed 04/18/18 @ 13:04 by Tanisha Birch) Sepsis (Acute) Intractable perianal pain (Acute) Pancytopenia (Acute) Anal cancer (Chronic) You will use the following diet at home:: No restrictions Your food should be the consistency of: Regular Your liquids should be the consistency of: Regular/Thin Discharge Activity: Return to Normal Activity Call your doctor if your incision/area has: Continuous Slow Oozing, Sudden Increased Bleeding, Increased Pain/ Swelling Call your doctor if you observe: Fever of 101 or Higher Cleanse incision/area with: Soap & Water, Keep Dressing Clean & Dry Catheter: Powell to leg bag Additional Dressing/Incision Instructions:: Follow up with primary care physician for removal of powell catheter. Call to verify they would be comfortable removing the catheter. If not, then contact the office of Dr. Calderon, a urologist, for removal. Allergies/Adverse Reactions: Allergies No Known Allergies Allergy (Verified 04/20/18 10:33) Medications to take at Discharge Pantoprazole Sodium [Protonix] 40 mg PO DAILY 07/21/18 Silver Sulfadiazine 1% Crm [Silvadene Cream] 1 applic TP BID 07/21/18 proMETHazine tablet [Phenergan tablet] 25 mg PO PRN PRN 07/21/18 Acetaminophen [Tylenol Tablet] 1,000 mg PO Q8H PRN tablet 07/24/18 Ciprofloxacin [Cipro] 500 mg PO BID #10 tablet 07/24/18 Oxycodone [Oxyir] 5 mg PO Q6H PRN 3 Days #12 tablet 07/24/18 The following prescriptions were given: Ciprofloxacin [Cipro] 500 mg PO BID #10 tablet Oxycodone [Oxyir] 5 mg PO Q6H PRN 3 Days #12 tablet PRN Reason: Severe Pain (6-10/10) Orders to be completed after discharge: CBC W/Diff, Automated Time Frame: 1 Week, Location: Laboratory Primary Care Physician: Be Esquivel DO [Primary Care Provider] - Within 1 Week Test Results: Test results from this visit will be discussed in further detail at your follow-up appointment, if applicable. Please Follow Up With: Yael Francisco MD When: 1-2 weeks Please Follow Up With: Dr. Stack - radiation oncology. When: 1-2 weeks Proposed Discharge Date: 07/24/18
--- NOTE | 2018-07-24 11:38 | DCINST_ITS ---
- Discharge Diagnoses Current Active Problems: Current Active and Chronic Problems (Last Reviewed 04/18/18 @ 13:04 by Tanisha Birch) Sepsis (Acute) Intractable perianal pain (Acute) Pancytopenia (Acute) Anal cancer (Chronic) You will use the following diet at home:: No restrictions Your food should be the consistency of: Regular Your liquids should be the consistency of: Regular/Thin Discharge Activity: Return to Normal Activity Call your doctor if your incision/area has: Continuous Slow Oozing, Sudden Increased Bleeding, Increased Pain/ Swelling Call your doctor if you observe: Fever of 101 or Higher Cleanse incision/area with: Soap & Water, Keep Dressing Clean & Dry Catheter: Powell to leg bag Additional Dressing/Incision Instructions:: Follow up with primary care physician for removal of powell catheter. Call to verify they would be comfortable removing the catheter. If not, then contact the office of Dr. Calderon, a urologist, for removal. Allergies/Adverse Reactions: Allergies No Known Allergies Allergy (Verified 04/20/18 10:33) Medications to take at Discharge Pantoprazole Sodium [Protonix] 40 mg PO DAILY 07/21/18 Silver Sulfadiazine 1% Crm [Silvadene Cream] 1 applic TP BID 07/21/18 proMETHazine tablet [Phenergan tablet] 25 mg PO PRN PRN 07/21/18 Acetaminophen [Tylenol Tablet] 1,000 mg PO Q8H PRN tablet 07/24/18 Ciprofloxacin [Cipro] 500 mg PO BID #10 tablet 07/24/18 Oxycodone [Oxyir] 5 mg PO Q6H PRN 3 Days #12 tablet 07/24/18 The following prescriptions were given: Ciprofloxacin [Cipro] 500 mg PO BID #10 tablet Oxycodone [Oxyir] 5 mg PO Q6H PRN 3 Days #12 tablet PRN Reason: Severe Pain (6-10/10) Orders to be completed after discharge: CBC W/Diff, Automated Time Frame: 1 Week, Location: Laboratory Primary Care Physician: Be Esquivel DO [Primary Care Provider] - Within 1 Week Test Results: Test results from this visit will be discussed in further detail at your follow- up appointment, if applicable. Please Follow Up With: aYel Francisco MD When: 1-2 weeks Please Follow Up With: Dr. Stack - radiation oncology. When: 1-2 weeks Proposed Discharge Date: 07/24/18
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
[2018-07-24] MEDS: HYDROmorphone 0.5 MG/0.5 ML SYRINGE IV (12:02)
[2018-07-24 15:38] VITALS: BP 112/70; PULSE 76; RESP 20; TEMP 36.9; O2SAT 96
[2018-07-24] MEDS: oxyCODONE 5 MG Tablet PO (16:32)
[2018-07-25 08:49] LABS: Pathologist Review Reviewed
--- NOTE | 2018-07-25 13:34 | CASEMGMT ---
[facility] DC PHONE CALL DC DATE: 07/24/18 DC DISPOSITION: Home LACE/STRATA: 04/30 Intro role of CM to patient via phone. Pt states she is improving. No questions re: dc instructions, prescriptions or follow up. Pt has prescriptions and is taking as prescribed. Pt has appt Wednesday and will be able to attend. No care improvements given. Stephane MITCHELL RN ACM
[2018-07-27 08:34] LABS: Pathologist Review Reviewed
== END 2018-07-24 16:32 | disposition home or self-care (01) | DRG 871 ==
LOC: ED 17:16 → MS3 18:44
PROVIDERS: Admitting Provider Hospitalist; Emergency Provider Emergency Medicine; Family Provider Family Medicine; PCP Family Medicine; Referring Provider Hospitalist
DX: A41.9 Sepsis, unspecified organism (principal); D61.810 Antineoplastic chemotherapy induced pancytopenia; C21.0 Malignant neoplasm of anus, unspecified; N39.0 Urinary tract infection, site not specified; R65.20 Severe sepsis without septic shock; T45.1X5A Adverse effect of antineoplastic and immunosuppressive drugs, initial encounter; T21.07XA Burn of unspecified degree of female genital region, initial encounter; T21.05XA Burn of unspecified degree of buttock, initial encounter; Y84.2 Radiological procedure and radiotherapy as the cause of abnormal reaction of the patient, or of later complication, without mention of misadventure at the time of the procedure; R33.9 Retention of urine, unspecified; E86.0 Dehydration
CPT/HCPCS: 36415; 80048; 80053; 81001; 83605; 85025; 85610; 85730; 87040; 87086; 87088; 87493; 93005; 97802; 99285; J7030; A4216; J2405

== ENCOUNTER → 2019-03-07 14:55 | Outpatient (CLI) | payer OTHER, SELFPAY ==
--- NOTE | 2019-03-07 14:57 | BI_ITS ---
MAMMOGRAPHY - BILATERAL SCREENING REASON FOR EXAM: Female, 63 years old. Routine annual screening examination. PERTINENT HISTORY: Sister with breast cancer. Grandmother with breast cancer. TECHNIQUE: Digital bilateral breast domingo (3D mammographic acquisition) in the CC and MLO projections. 2-D mediolateral oblique (MLO) and craniocaudad (CC) views of both breasts were obtained. CAD: Full Field Digital Mammography with Computer Added Detection was performed. COMPARISON: Comparison is made with prior study dated March 02, 2018 and January 04, 2017. FINDINGS: Breast Composition: There are scattered areas of fibroglandular density. There are no dominant masses or suspicious calcifications. No other significant abnormalities are identified. There has been no significant change since the prior study. BI/SCREEN MAMM (CAD) W/DOMINGO BILAT IMPRESSION: Stable bilateral screening mammogram. Yearly follow-up mammogram recommended. (A) ASSESSMENT CATEGORY: BIRADS Category 1: Negative. A letter regarding these results will be sent to the patient by the facility within 30 days. Approximately 10% of breast cancers are not detected by mammography. A normal mammogram should not delay biopsy of a clinically suspicious abnormality. [id number] Electronically Signed: Flakito Hernández, at 9:02 EDT , Service support ,
== END ==
PROVIDERS: Family Provider Family Medicine; PCP Family Medicine; Referring Provider Family Medicine; Visit Provider Family Medicine
DX: Z12.31 Encounter for screening mammogram for malignant neoplasm of breast (principal); Z80.3 Family history of malignant neoplasm of breast
CPT/HCPCS: 77063; 77067

== ENCOUNTER 2019-11-15 16:01 | Emergency (ER) | payer MEDICARE, OTHER, SELFPAY ==
[2019-11-15] VITALS (8 sets, daily range): BP systolic 91–169; BP diastolic 57–93; PULSE 83–124; RESP 16–24; TEMP 39.1; O2SAT 96–99; BMI 35.8
--- NOTE | 2019-11-15 16:34 | EKG12_ITS ---
Test Reason : SOB Blood Pressure : / mmHG Vent. Rate : 105 BPM Atrial Rate : 105 BPM P-R Int : 138 ms QRS Dur : 084 ms QT Int : 348 ms P-R-T Axes : 051 007 053 degrees QTc Int : 459 ms Sinus tachycardia Inferior infarct , age undetermined Abnormal ECG Confirmed by LES VILLALOBOS, CLAYTON ([id number]), avid editor GERMAIN TURNER ([id number]) on 11/21/2019 2:56:35 PM Referred By: TL/KYLE Confirmed By:CLAYTON SALDANA MD
--- NOTE | 2019-11-15 16:47 | ED.DCSUM_ITS ---
History of Present Illness Chief Complaint: Shortness of Breath Informant: Patient Onset: Yesterday Narrative: Presents with chills starting yesterday today fever of 102.3 orally status post Tylenol 9 AM over 7 hours ago. Dry cough and headache. No vomiting or diarrhea however nauseated. No loss of smell or taste. No sick contacts. History of rectal cancer status post radiation and chemotherapy finished in July followed by Dr. Francisco. Patient states her previous PCP left and has a new one, contacted yesterday COVID testing was ordered as an outpatient however not performed. Denies any shortness of breath or wheezing or chest pains. Chronic lower abdominal pain since her rectal cancer. No urinary symptoms. Denies any allergies. Prior similar symptoms: No Past Medical History - Allergies and Home Meds Allergies/Adverse Reactions: Allergies No Known Allergies Allergy (Verified 11/15/19 16:02) Primary Care Physician: Be Esquivel DO [Primary Care Provider] - Past Medical History: - - Rectal cancer Surgical History: hysterectomy, total knee arthroplasty Smoking Status: Never smoker - Family History Maternal Family History: Family History (Last Reviewed 04/18/18 @ 13:05 by Tanisha Birch) Mother Breast cancer Diabetes Grandmother Breast cancer Sister Breast cancer Family History: Reports: No pertinent history Paternal Family History: Family History (Last Reviewed 04/18/18 @ 13:05 by Tanisha Birch) Mother Breast cancer Diabetes Grandmother Breast cancer Sister Breast cancer Family History: Reports: No pertinent history Review of Systems General: Reports: Chills, Fever. Denies: Sweats Eyes: Denies: Visual changes - bilaterally, Diplopia ENT: Denies: Rhinorrhea, Sore throat Cardiovascular: Denies: Chest pain, Palpitations Respiratory: Reports: Cough. Denies: Dyspnea, Dyspnea on exertion Gastrointestinal: Reports: Nausea. Denies: Abdominal pain, Vomiting, Diarrhea, Melena, Hematochezia Genitourinary: Denies: Dysuria, Hematuria, Frequency Musculoskeletal: Denies: Back pain, Extremity Pain Skin: Denies: Rash, Wounds Neurological: Reports: Headache. Denies: Weakness, Numbness Physical Exam Vital Signs/Narrative: Vital Signs Temp Pulse Resp BP Pulse Ox 11/15/19 16:20 102.3 F H 124 H 22 H 124/93 H 98 11/15/19 16:02 102.3 F H 122 H 22 H 124/93 H 97 Inital Vital Signs reviewed: Yes General: Well nourished, Well developed, No Acute Distress Head: Normocephalic, Atraumatic Eyes: EOMI ENT: - - Patient wearing surgical mask for protection Neck: Supple, Nontender, - - No meningismus Cardiovascular: Regular rate, Regular rhythm, No murmurs, Tachycardia, - - Heart rate 104 Respiratory: No distress, CTA bilaterally, Chest nontender Abdomen: Soft, Nontender, Nondistended, Normal bowel sounds Back: Nontender, Normal Inspection Extremities: Nontender, No edema Skin: Normal color, No rash Neurological: Alert, Oriented x3, Cranial nerves II-XII grossly intact, Normal Strength, Normal Sensation Psychological: Normal affect, Normal Mood Diagnostic/Tx/Re-eval Chest X-Ray - ED: 1 View, Read by ED Physician, No Acute Disease Clinical Impression(s) from Imaging Studies Chest X-Ray 11/15/19 18:10 IMPRESSION: No acute cardiopulmonary disease. Electronically Signed: Grayson Brandt MD at 18:51 EDT , Service support , Abnormal Lab Results 11/15/19 11/15/19 11/15/19 16:55 16:55 17:50 WBC 10.0 RBC 4.46 Hgb 13.5 Hct 41.0 MCV 91.9 MCH 30.3 MCHC 32.9 RDW Std Deviation 43.0 RDW Coeff of Robles 12.8 MPV 11.6 Immature Gran % (Auto) 0.500 Neut % (Auto) 90.2 H Lymph % (Auto) 5.6 L [place] % (Auto) 3.5 Eos % (Auto) 0.0 Baso % (Auto) 0.2 Absolute Neuts (auto) 9.0 H Absolute Lymphs (auto) 0.56 L Nucleated RBC % 0 Differential Comment Platelet Estimate MOD DEC RBC Morphology NORM C+C PT INR APTT Sodium Potassium Chloride Carbon Dioxide Anion Gap BUN Creatinine Estim Creat Clear Calc Est GFR (MDRD) Af Amer Est GFR (MDRD) Non-Af BUN/Creatinine Ratio Glucose Lactic Acid Calcium Total Bilirubin AST ALT Alkaline Phosphatase Total Protein Albumin Globulin Albumin/Globulin Ratio Urine Color Urine Clarity Urine pH Ur Specific [place] Urine Protein Urine Glucose (UA) Urine Ketones Urine Occult Blood Urine Nitrite Urine Bilirubin Urine Urobilinogen Ur Leukocyte Esterase Urine RBC Urine WBC Ur Squamous Epith Cells Urine Bacteria Urine Mucus COVID-19 (LAURIE) Cancelled Negative 11/15/19 11/15/19 11/15/19 17:50 17:50 17:50 WBC RBC Hgb Hct MCV MCH MCHC RDW Std Deviation RDW Coeff of Robles MPV Immature Gran % (Auto) Neut % (Auto) Lymph % (Auto) [place] % (Auto) Eos % (Auto) Baso % (Auto) Absolute Neuts (auto) Absolute Lymphs (auto) Nucleated RBC % Differential Comment Platelet Estimate RBC Morphology PT 13.8 INR 1.1 APTT 31.1 Sodium 136 Potassium 4.0 Chloride 105 Carbon Dioxide 24.0 Anion Gap 7 BUN 12 Creatinine 1.06 H Estim Creat Clear Calc 41.29 Est GFR (MDRD) Af Amer 67 Est GFR (MDRD) Non-Af 55 L BUN/Creatinine Ratio 11.3 Glucose 122 H Lactic Acid 1.3 Calcium 9.0 Total Bilirubin 0.30 AST 25 ALT 24 Alkaline Phosphatase 91 Total Protein 7.3 Albumin 3.6 Globulin 3.7 Albumin/Globulin Ratio 1.0 Urine Color Urine Clarity Urine pH Ur Specific [place] Urine Protein Urine Glucose (UA) Urine Ketones Urine Occult Blood Urine Nitrite Urine Bilirubin Urine Urobilinogen Ur Leukocyte Esterase Urine RBC Urine WBC Ur Squamous Epith Cells Urine Bacteria Urine Mucus COVID-19 (LAURIE) 11/15/19 18:12 WBC RBC Hgb Hct MCV MCH MCHC RDW Std Deviation RDW Coeff of Robles MPV Immature Gran % (Auto) Neut % (Auto) Lymph % (Auto) [place] % (Auto) Eos % (Auto) Baso % (Auto) Absolute Neuts (auto) Absolute Lymphs (auto) Nucleated RBC % Differential Comment Platelet Estimate RBC Morphology PT INR APTT Sodium Potassium Chloride Carbon Dioxide Anion Gap BUN Creatinine Estim Creat Clear Calc Est GFR (MDRD) Af Amer Est GFR (MDRD) Non-Af BUN/Creatinine Ratio Glucose Lactic Acid Calcium Total Bilirubin AST ALT Alkaline Phosphatase Total Protein Albumin Globulin Albumin/Globulin Ratio Urine Color Yellow Urine Clarity Clear Urine pH 8.0 Ur Specific [place] 1.015 Urine Protein 30 H Urine Glucose (UA) Normal Urine Ketones 15 H Urine Occult Blood 25 H Urine Nitrite Negative Urine Bilirubin Negative Urine Urobilinogen 1 H Ur Leukocyte Esterase 25 H Urine RBC 0-5 SEEN Urine WBC 0-5 SEEN Ur Squamous Epith Cells 0 SEEN Urine Bacteria 0 SEEN Urine Mucus 0 SEEN COVID-19 (LAURIE) - EKG Initial EKG Interpretation: Sinus Rhythm - Sinus rate of 105, no ST changes. - Medical Decision Making Patient nontoxic febrile in the ED on arrival. She is tachycardic, therefore sepsis criteria was initiated. Work-up with a negative chest x-ray white count was normal creatinine normal. Urine no 25 leukocytes, she denies any symptoms from this. Urine culture, blood cultures are pending. Lactic acid normal. Patient presenting with potential COVID symptoms of headache dry cough reported loose stools. COVID test did return negative. Pulse ox is 99% on room air. Discussed with patient there potentially could be false negatives. She is 1 day into symptoms. Discussed with patient strict signs and symptoms to return especially any respiratory distress. Patient understands. Discharge with outpatient follow-up. All questions were answered. Of note, patient is 3 months out from her last chemo treatment. She is not neutropenic. ED Disposition - Plan for ED Patient: Disposition: Home or Assisted Living Diagnosis: Fever, Viral syndrome, Thrombocytopenia Instructions: ED Viral Syndrome, ED FUO Adult Referrals: Be Esquivel DO [Primary Care Provider] - 3-5 Days if not improving
[2019-11-15] MEDS: 0.9% Normal Saline 1,000 ML 150 ML IV (17:53)
[2019-11-15] MEDS: Acetaminophen 500 MG Tablet 1000 MG PO (17:54)
[2019-11-15] MEDS: Ondansetron 4 MG/2 ML Vial IV (17:56)
--- NOTE | 2019-11-15 18:10 | RAD_ITS ---
STUDY: X-RAY CHEST REASON FOR EXAM: Female, 64 years old. SOB, FEVER, CHILLS, NAUSEA, BODY ACHES, PT REPORTS SYMPTOMS STARTING YESTERDAY TECHNIQUE: Single AP portable upright view of the chest. COMPARISON: PA and lateral chest x-ray April 03, 2014. FINDINGS: The lungs are clear and moderate expanded. There is no demonstrated pleural abnormality. Normal size heart. Normal mediastinum and christina. Normal visualized pulmonary arteries. Normal visualized aortic arch and descending thoracic aorta. There are stable multilevel degenerative changes of the visualized thoracic spine, and a mild upper thoracic levoscoliosis. Normal visualized ribs, clavicles, and shoulders. There is no demonstrated abnormality of the visualized soft tissue structures of the upper abdomen. RAD/Chest 1 View (Portable) IMPRESSION: No acute cardiopulmonary disease. Electronically Signed: Grayson Brandt MD at 18:51 EDT , Service support ,
[2019-11-15 18:13] LABS: Absolute Lymphocyte Count 0.56 X10^3/uL (0.83-4.51); Basophil# 0.02 X10^3/uL; Basophil% 0.2 % (0-1); Hemoglobin 13.5 g/dL (12.0-15.0); Lymphocyte # 0.56 X10^3/ul (4.0); Lymphocyte % 5.6 % (19-41); Mean Corp Hgb Conc 32.9 g/dL (32-36); Mean Corpuscular Hgb 30.3 pg (27.0-32.0); Mean Corpuscular Volume 91.9 fL (81-99); Mean Platelet Vol. 11.6 fl (6.2-12.0); Monocyte# 0.35 X10^3/uL; Monocyte% 3.5 % (0-10); NRBC Flagged by Analyzer 0 % (0-5); Neutrophil # 9.02 X10^3/uL (2.7-7.7); Neutrophil % 90.2 % (47-70); POSITIVE COUNT YES; POSITIVE DIFFERENTIAL YES; RBC Distribution Width CV 12.8 % (11.6-14.6); Red Blood Count 4.46 M/mm3 (4.2-5.4)
[2019-11-15 18:19] LABS: Bacteria 0 SEEN /hpf (None Seen); Mucous, Urine 0 SEEN /hpf (<or=2+); Squamous Epithelial Cells - UA 0 SEEN /hpf (5-10)
[2019-11-15 18:21] LABS: International Normalized Ratio 1.1; Prothrombin Time (Protime)PT. 13.8 SECONDS (11.7-14.9)
[2019-11-15 18:22] LABS: Partial Thromboplast Time 31.1 Seconds (24.1-36.2)
[2019-11-15 18:23] LABS: Color, Urine Yellow (Yellow); Glucose, Dipstick Normal (Normal); Ketone-Dipstick 15 mg/dl (Negative); Leukocyte Esterase-Dipstick 25 /ul (Negative); Nitrite-Dipstick Negative (Negative); Occult Blood-Urine 25 /ul (Negative); Protein-Dipstick 30 mg/dl (Negative); Specific Gravity, Urine 1.015 (1.002-1.030); Urine Bilirubin Dipstick Negative (Negative); Urine Clarity Clear (Clear); Urine Urobilinogen 1 mg/dl (Normal)
[2019-11-15 18:27] LABS: Lactic Acid 1.3 mmol/L (0.4-1.9)
[2019-11-15 18:29] LABS: AST(SGOT) 25 U/L (15-37); Alanine Aminotransfer ALT/SGPT 24 U/L (13-56); Albumin, Serum 3.6 g/dL (3.2-5.0); Alkaline Phosphatase 91 U/L (45-117); Anion Gap 7 (5-15); BUN 12 mg/dL (7-18); BUN/Creat Ratio 11.3 RATIO (10-20); Chloride 105 mmol/L (98-107); Creatinine, Serum 1.06 mg/dL (0.55-1.02); EST Glomerular Filtration Rate 55 mL/min (>60); Est Glom Filt Rate - Afr Amer 67 mL/min (>60); Estimated Creatinine Clearance 41.29 ml/min; Globulin 3.7 g/dL (2.2-4.2); Glucose 122 mg/dL (74-106); Protein, Total 7.3 g/dL (6.4-8.2); Sodium Level 136 mmol/L (136-145)
[2019-11-15 18:35] LABS: Differential Indicated SCAN CRITERIA MET
[2019-11-15 18:42] LABS: Platelet Estimate MOD DEC (ADEQ)
[2019-11-15 18:43] LABS: Red Cell Morphology NORM C+C NORMAL (NORM C&C)
[2019-11-15 18:45] LABS: Red Blood Cells-Urine 0-5 SEEN /hpf (0-5); White Blood Cells 0-5 SEEN /hpf (0-5)
[2019-11-15 19:24] LABS: Probe Check PASS; SARS-COV-2 DNA by PCR Negative (Negative); Specimen Processing Control PASS
--- OUTSIDE RECORDS SUMMARY | 2020-04-09 14:55 | XMS RPT_ITS | CCD ---
:1955 External Reference #:[id number] Author Organization [facility] Care Team Providers Name Role Phone Precious Stewart Unavailable Michelle Esquivel Primary Care Provider Sreekanth Unavailable Medications Medication Name Sig Date Prescriber Location Acetaminophen acetaminophen (TYLENOL) 500 [facility] Provider [facility] mg tablet Take 1,000 mg by ( 65148) mouth every 6 hours as needed for Pain. 0 Active Comment: Take 1,000 mg by mouth every 6 hours as needed for Pain. Apple Cider Vinegar APPLE CIDER VINEGAR ORAL [facility] (60667) Take by mouth. 0 Active APPLE CIDER VINEGAR ORAL Take by mouth. 0 [facility] (48312) Active APPLE CIDER VINEGAR ORAL Take by mouth. 0 [facility] (48680) Active APPLE CIDER VINEGAR ORAL Take by mouth. 0 [facility] (40677) Active APPLE CIDER VINEGAR ORAL Take by mouth. 0 [facility] (35835) Active Comment: Take by mouth. COMPOUNDED PRESCRIPTION COMPOUNDED PRESCRIPTION [facility] Hemp Gummy Bears: Take (4419 5) two each by mouth once daily. 0 Active COMPOUNDED PRESCRIPTION Hemp Gummy Bears: [facility] (63501) Take two each by mouth once daily. 0 Active COMPOUNDED PRESCRIPTION Hemp Gummy Bears: [facility] (38547) Take two each by mouth once daily. 0 Active COMPOUNDED PRESCRIPTION Hemp Gummy Bears: [facility] (47128) Take two each by mouth once daily. 0 Active COMPOUNDED PRESCRIPTION Hemp Gummy Bears: [facility] (46596) Take two each by mouth once daily. 0 Active Comment: Hemp Gummy Bears: Take two e ach by mouth once daily. Estradiol estradiol (ESTRACE) 02-21-2019 [facility]ise Mcclure) [facility] % (0.1 mg/gram) (88958) vaginal cream Use 3 g vaginally once daily. 42.5 g 1 02/21/2019 Active Comment: Use 3 g vaginally once daily . Famotidine FAMOTIDINE ORAL Take 20 mg by [facility] (68107) mouth. 0 Active Comment: Take 20 mg by mouth. Lidocaine lidocaine (XYLOCAINE) 5 04-10-2019 Denise Mcclure) [facility] % ointment Apply 1 (60208) application to affected area as needed. 50 g 0 04/10/2019 Active Comment: Apply 1 application to affec willard area as needed. multivitamin with multivitamin with [facility] Provider [facility] minerals (HAIR,SKIN AND minerals (HAIR,SKIN AND (10429) NAILS) tablet NAILS) tablet Take 1 tablet by mouth once daily. 0 Active multivitamin with minerals (HAIR,SKIN AND [facility] (18541) NAILS) tablet Take 1 tablet by mouth once daily. 0 Active multivitamin with minerals (HAIR,SKIN AND [facility] (71270) NAILS) tablet Take 1 tablet by mouth once daily. 0 Active multivitamin with minerals (HAIR,SKIN AND [facility] (00275) NAILS) tablet Take 1 tablet by mouth once daily. 0 Active multivitamin with minerals (HAIR,SKIN AND [facility] (14646) NAILS) tablet Take 1 tablet by mouth once daily. 0 Active Comment: Take 1 tablet by mouth once daily. pantoprazole pantoprazole sodium [facility] (90547) (PANTOPRAZOLE ORAL) Take 40 mg by mouth once daily. 0 Active Comment: Take 40 mg by mouth once dina ly. VITAMIN B COMPLEX ORAL VITAMIN B COMPLEX ORAL [facility] (68734) Take 1 tablet by mouth once daily. 0 Active VITAMIN B COMPLEX ORAL Take 1 tablet by mouth [facility] f [facility] (41561) once daily. 0 Active VITAMIN B COMPLEX ORAL Take 1 tablet by mouth [facility] (60288) once daily. 0 Active VITAMIN B COMPLEX ORAL Take 1 tablet by mouth [facility] f [facility] (30379) once daily. 0 Active VITAMIN B COMPLEX ORAL Take 1 tablet by mouth [facility] (52814) once daily. 0 Active Comment: Take 1 tablet by mouth once daily. Problems Category Problem Name Status Date Location Cancer of rectum and Malignant tumor of Active 04-29-2018 - [facility] anus anus (34155) Cancer; other and Malignant tumor of Active 05-12-2019 - [facility] unspecified primary pelvis (20915) Results Result Name Value Range Unit Interpretation Flag Date [facility] CNP[facility] Telephone (ALEXA) Normal 04-01-2020 [facility] CYNTHIA WALLACE ([id number]) 1955 F [facility] Time Provider Department ([id number]) 04/01/20 JULES MINER During your visit today, we recorded the following informati on about you: Jules Miner MD 04/01/2020 8:56 AM Signed Please confirm her scheduled CT scan of chest abdomen pelvis and follow-up with me later this month. MD Holli Lopes LPN 04/01/2020 9:06 AM Signed Left message for patient con firming all appointments. Patient to contact office for questions. Holli Plascencia LPN Allergies As of Date: 04/01/2020 (No Known Allergies) Date Reviewed: 03/25/2020 Reviewed by: Andrea Minor) XANDER Caldera - Fully Assessed Reason for Visit: Appointment [186] Cmt: Follow-up Prescriptions as of 04/01/2020 Sig: APPLE CIDER VINEGAR ORAL Take by mouth. FAMOTIDINE ORAL Take 20 mg by mouth. MULTIVITAMIN WITH MINERALS TA* Take 1 tablet by mouth once d * COMPOUNDED PRESCRIPTION Hemp Gummy Bears: Take two ea* LIDOCAINE 5 % TOPICAL OINTMENT Apply 1 application to affect * ESTRADIOL 0.01% (0.1 MG/GRAM)* Use 3 g vaginally once daily. 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 Author Type: Physician Type: Progress Notes Filed: 03/29/2020 6:36 PM Note Text: Anal Cancer Tumor Board Follow- up Presentation Date of conference: 03/29/2020. 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 MRI performed at: [facility]. Relation to peritoneal reflection: Below. Tumor location in the rectum: Lower third rectum/upper anal canal Tumor height from anal verge: (#) 2.0 cm. Relation to sphincter: No sphincter invasion. Mesorectal lymph nodes: No. Extra-mesorectal lymph nodes: No. Other structures involved: Yes, Persistent abutment of the p osterior vaginal wall and of the right external sphincter/levator (linda th best seen on 12:20-21) . Circumferential resection margin: Not threatened. MRI Stage: no tumor visible. Scar downsized. Distant metastases: No. CT chest/abd/pelvis still to be done in 2019 CEA results: CEA (ng/mL) Date Value 11/02/2019 1.1 Pre-treatment clinical stage: [id number] Tumor board discussion and recommendation: CT scans of chest /abd/pelvis for routine, no local regrowth Neoadjuvant therapy recommended: No. Anticipated surgical treatment: none. Clinical Trial Candidate: No. Other Discussion: next endo in 3 months, MRI in 6 months. Disciplines present: Colorectal Surgery, Medical Oncology, R adiation Oncology, Radiology, Anatomic Pathology. This is the summary of the general discussion provided at mor board conference. The final recommendations will be made by the [facility] care team and the patient after discussing the benefits, ris ks and alternatives to the various treatment options. progress on 2020-02 PROGRESS HNO ID: [id number] Normal 03-25-2020 [facility] Author: Clayton Branch (Rt) [place] ([id number]) Service: Radiology Author Type: Pharmaceutical Service Representative Type: Progress Notes Filed: 03/25/2020 2:04 PM Note Text: Radiology Service Progress Note PATIENT NAME: Cynthia Wallace DATE OF SERVICE: March 25, 2020 TIME: 2:03 PM PATIENT IDENTITY VERIFICATION COMPLETED USING TWO (2) IDENTI FIERS: Name and Date of confirmed by patient verbally and Name and Date of confirmed by identification band. FALL SCREENING: Has the patient had 2 falls in the last year or 1 fall with injury or currently using an Ambulatory Assistive Devic e (Walker, Cane, Wheelchair, Crutches, etc.)? No PATIENT GENDER DATA: Female. status: : No status: N/A PATIENT RELEVANT IMPLANT DATA REVIEWED: Yes RADIOLOGY DEPARTMENT: MR; Exam(s) Completed: Body: Rectal PERIPHERAL IV DATA: Site assessment: Clean,Dry and Intact, S ite disposition Discontinued SIGNED BY: RT Jose Carlos March 25, 2020 2:03 PM PROGRESS HNO ID: [id number] Normal 03-25-2020 [facility] Author: Andrea Caldera RN [place] ([id number]) Service: Radiology Author Type: Registered Nurse Type: Progress Notes Filed: 03/25/2020 12:41 PM Note Text: Radiology Service Progress Note DATE OF SERVICE: March 25, 2020 TIME: 12:40 PM PATIENT WEIGHT: 202LBS PATIENT IDENTITY VERIFICATION COMPLETED USING TWO (2) STANDA RD IDENTIFIERS: Name and Date of confirmed by patient chantale bally. FALL SCREENING: Has the patient had 2 falls in the last year or 1 fall with injury or currently using an Ambulatory Assistive Devic e (Walker, Cane, Wheelchair, Crutches, etc.)? No PATIENT GENDER DATA: Female. status: : No status: NO. ALLERGIES: Reviewed and unchanged CONTRAST ALLERGY: No EXAM: MRI - CONTRAST TYPE: GROUP II IV SITE: Ambulatory: A peripheral IV was started in the [facility] antecubital site with a Angio cath: 22 gauge. IV SITE APPEARANCE: Clean,Dry and Intact SIGNATURE: Andrea Caldera RN PATIENT NAME: Cynthia Wallace DATE: March 25, 2020 TIME: 12:40 PM mri rectum wo/w ivcon on 2020-03-25 MRI RECTUM WO/W * * *Final Report* * * Normal 0 03-25-2020 [facility] IVCON DATE OF EXAM: Mar 25 2020 2:10PM [place] ([id number]) QBM 0754 - MRI RECTUM WO/W IVCON / PROCEDURE REASON: Malignant neoplasm of anus (HCC) * * * * Physician Interpretation * * * * MRI OF THE PELVIS WITHOUT AND WITH CONTRAST: RECTAL CANCER S TAGING CLINICAL HISTORY: Rectal tumor histology: Poorly differentiated squamous cell carcinoma Prior chemotherapy or radiation: Yes (Viv protocol) COMPARISON: MRI rectum 05/05/2018 and 07/01/2019. TECHNIQUE: Magnet: Siemens 1.5T Aera scanner. 1.5 Edda Coil: Torso phased array Sequences / planes: T2: axial, sagittal and coronal High resolution T2: axial oblique STIR: axial T1 in and [id number]: axial HASTE: coronal large field of view T1 3-D GRE with and without contrast: axial, sagittal and co carmela Diffusion weighted imaging with ADC mapping: axial Contrast: IV administration of 18 ml of Dotarem RESULT: TUMOR LOCATION: Location: Lower third rectum/upper anal canal Distance to top of internal anal sphincter: 0 cm (involved). Distance to anal verge: 2.0 cm Relationship to peritoneal reflection: below TUMOR CHARACTERISTICS: Type: sessile Tumor Length: 2.3 cm, previously 2.9 cm Circumferential extent: <25% involving the right anterolater al wall Wall invasion: Minimally decreased bulk of treated tumor len ng the right anterolateral anal canal, with similar appearance of T 2 hypointense wall thickening along the right anterior aspect of the anus which abuts the posterior wall of the vagina (8:36). No restricted diffu janusz, abnormal enhancement, or T2 intermediate signal 2 suggest re sidual tumor. POST-TREATMENT TUMOR REGRESSION: N/A (anal squamous cell) CIRCUMFERENTIAL RESECTION MARGIN: Applicable: no EXTRAMURAL VASCULAR INVASION: None OTHER STRUCTURES/ ORGANS INVOLVED: Persistent abutment of th e posterior vaginal wall and of the right external sphincter/levator (linda th best seen on 12:20-21) LYMPH NODES: No pelvic lymphadenopathy. Stable nonenlarged a nd morphologically benign-appearing right external iliac lymph node measures 0.6 x 1.5 cm (18:56). No new or enlarging nodes. OTHER FINDINGS: Prior hysterectomy. Sigmoid diverticulosis. Slight decreased conspicuity of changes of radiation proctitis. The study was interpreted by Dr. Bolaños, a member of the recta l cancer multidisciplinary tumor board. IMPRESSION: MINIMAL DECREASE IN BULK OF FIBROSIS ALONG THE RIGHT ANTEROL ATERAL ANAL CANAL, AGAIN WITHOUT EVIDENCE OF RESIDUAL VIABLE TUMOR. NO PELVIC LYMPHADENOPATHY. Contact Lens Inspector: PSCB Transcribe Date/Time: Mar 25 2020 2:23P Dictated by : NICHOLE LINDSAY MD This examination was interpreted and the report reviewed and electronically signed by: JOSE BOLAÑOS MD on Mar 25 2020 5:07PM EST [id number] No panel information on 2020-03-25 [facility] ([id number]) [facility] Normal 02-16-2020 [place] CYNTHIA Bardales ([id number]) 1955 F [place] Date Time Provider Department ([id number]) 02/16/20 THANIA LENZ [facility] During your visit today, we recorded the following informati on about you: Vale Goff Pss 02/16/2020 3:05 PM Signed Patient is calling in to determine which type of MRI is being ordered (with or without rectal probe) as she is trying to find a location closer to home to have the MRI done. ([facility] unable to do this type of MR I.) Please advise. Vale Segovia 02/20/2020 2:31 PM Signed Spoke with patient and scheduled at [facility]. Vale Segovia Allergies As of Date: 02/16/2020 (No Known Allergies) Date Reviewed: 01/04/2020 Reviewed by: Miriam Guardado - Fully Assessed Reason for Visit: Question [[id number]] Prescriptions as of 02/16/2020 Sig: APPLE CIDER VINEGAR ORAL Take by mouth. FAMOTIDINE ORAL Take 20 mg by mouth. MULTIVITAMIN WITH MINERALS TA* Take 1 tablet by mouth once d * COMPOUNDED PRESCRIPTION Hemp Gummy Bears: Take two ea* LIDOCAINE 5 % TOPICAL OINTMENT Apply 1 application to affect * ESTRADIOL 0.01% (0.1 MG/GRAM)* Use 3 g vaginally once daily. 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 Sh e is now s/p chemoradiation (Viv protocol) treatment completed on 9. No interval complaints. Reports occasional blood with stool and perianal irritation with liquid stools occassionally. Recent CT imagi ng without e/o recurrence. Underwent biopsy of vulvar lesion recently with PAYROLL EXAMINER, no e/o carcinoma. Imaging Results MRI Pelvis: 07/21/2019, CT Abdomen/Pelvis: 10/31/2018, CT Chest : 10/31/2018 MRI Rectum WO/W IVCON 07/21/2019 Impression: Interval decrease in size of anorectal tumor, without eviden ce of residual viable tumor. No pelvic lymphadenopathy. CT Chest W IVCON 10/31/2018 Impression: Stable 3-4 mm groundglass nodular opacity in the right apex. No new or enlarging nodules identified. No lymphadenopathy in the chest. CT ABD/PEL W IVCON 10/31/2018 Impression: Interval improvement of rectal/anal wall thickening and decr eased enhancement. Interval decrease in size of retroperitoneal including parac eliac lymph node and significant decrease in size of mesorectal lymph no lisa. Colonic diverticulosis. PATHOLOGY RESULTS: Surgical Pathology 08/10/2009 FINAL DIAGNOSIS : Perirectal tissue, biopsy (A) - Smooth muscle, fibrous tissu e, and minute fragments of benign squamous epithelium. - No evidence of carcinoma. CEA: Level 1.1 PAST MEDICAL HISTORY Diagnosis Date - Anal cancer (HCC) 04/21/2018 - Arthritis - GERD (gastroesophageal reflux disease) PAST SURGICAL HISTORY Procedure Laterality Date - HYSTERECTOMY - PAST SURGICAL HISTORY OF knee R replacement - PAST SURGICAL HISTORY OF Cyst removed from left foot Current Outpatient Medications Medication Sig Dispense Refill - APPLE CIDER VINEGAR ORAL Take by mouth. - FAMOTIDINE ORAL Take 20 mg by mouth. - multivitamin with minerals (HAIR,SKIN AND NAILS) tablet Ta ke 1 tablet by mouth once daily. - COMPOUNDED PRESCRIPTION Hemp Gummy Bears: Take two each by mouth once daily. - lidocaine (XYLOCAINE) 5 % ointment Apply 1 application to affected area as needed. 50 g 0 - estradiol (ESTRACE) 0.01 % (0.1 mg/gram) vaginal cream Use 3 g vaginally once daily. 42.5 g 1 - VITAMIN B COMPLEX ORAL Take 1 tablet by mouth once daily. - acetaminophen (TYLENOL) 500 mg tablet Take 1,000 mg by papo th every 6 hours as needed for Pain. - pantoprazole sodium (PANTOPRAZOLE ORAL) Take 40 mg by mout h once daily. No current facility-administered medications for this visit. ALLERGIES No Known Allergies FAMILY HISTORY Problem Relation Age of Onset - Brain Cancer Mother lung and brain - Breast Cancer Sister 45 - Breast Cancer Maternal Grandmother - Cancer Other mat aunts bone cancer - Heart Father Social History Tobacco Use - Smoking status: Never Smoker - Smokeless tobacco: Never Used Substance Use Topics - Alcohol use: No - Drug use: No Review of Systems: GENERAL: No weight loss, malaise or fevers RESPIRATORY: Negative for cough, hemoptysis, wheezing, COPD, dyspnea or shortness of breath CARDIOVASCULAR: Negative for chest pain, leg swelling, hyper tension, CHF or palpitations GI: No nausea, vomiting, or diarrhea : No history of dysuria, frequency or incontinence PAYROLL EXAMINER: wound from bx MUSCULOSKELETAL: Negative for joint pain or swelling, back p ain or muscle pain SKIN: Negative for lesions, rash, and itching PSYCH: Negative for sleep disturbance, mood disorder and rec ent psychosocial stressors HEMATOLOGY/LYMPHOLOGY: Negative for prolonged bleeding, brui sing easily or swollen nodes ENDOCRINE: Negative for cold or heat intolerance, polyuria, polydipsia and goiter NEURO: No history of headaches, syncope, paralysis, seizures or tremors ANEMIA: No A 10 point review of systems was performed. All other system s are negative, other than stated above and HPI. Physician attestation: Efrain Freire MD I have confirmed and edited as necessary, the PFSH and ROS o btained by others. Thania Lenz MD Physical Exam: 02/06/20 1043 Weight: 91.6 kg (202 lb) Height: 157.5 cm (5' 2) General: Alert and oriented, No acute distress Skin: Normal color, no rash, no lesions. HEENT: EOM, pupils equal, round and reactive. Cardiovascular: Normal rate in regular rhythm Lungs: Normal breath sounds, no wheezes or crackles. Abdomen: Soft, non-distended, non-tender Extremities: No deformity, no significant edema Neurological: Normal cognition and motor skills. Cinder Dump Crane Operator present: Yes, Lily Zhao Flexible Sigmoidoscopy/Proctoscopy Findings: The patient was placed in left lateral position. After digital exam with a lubricated finger, the scope was easily inserted. There were no hemorrhoids enlarged. The mucosa was otherwise normal. Patient tolerated procedure well. perianal skin radiation changes, mild anal stenosis digitall y dilated, no palpable mass, rectum with mild radiation proctitis - somewh at rigid, no e/o tumor recurrence Assessment Assessment: Cynthia aWllace is a 64 year old w/anal SCC (cT4N1c) s/p Nig ro protocol completed July 2018. No e/o recurrence on sigmoidoscopy. The risks, benefits and anticipated outcomes of the proposed procedures, the risks and benefits of the alternatives to the procedure and the roles and tasks of the personnel to be involved were discussed wit h the patient and the patient consents to the procedure and agrees to proc eed. Plan: Recommend interval MRI pelvis/rectum to better assess for re currence (better than CT). Follow up in 3 months All questions were answered and the patient had no further c oncerns at this time@ Ciaran was given our contact information if she has any [facility] questions or concerns. I have seen and evaluated the patient and discussed the case with the resident physician. I agree with the assessment and plan as documented in the resident?s note. I spent 40 minutes in the visit, with more than 50% of the t otal [id number] time of the visit in counseling / coordination of care. Thania Lenz MD Colorectal Surgery cnov on 2020-02-06 [facility] Office Visit ([id number]) Normal 02-06-20 [facility] CYNTHIA WALLACE ([id number]) 1955 F [place] Date Time Provider Department ([id number]) 02/06/20 11:30 AM THANIA LENZ During your visit today, we recorded the following informati on about you: Weight Height 91.6 kg 1.575 m Thania Lenz MD 02/07/2020 10:44 AM Signed COLORECTAL SURGERY Follow-up February 06, 2020 Cynthia Wallace 64 year old Anal Cancer Evaluation after combined modality treatment Chief Complaint: anal cancer follow up History of Present Illness Cynthiabenjamín Wallace is a 63 year old female here today for anal cancer initially diagnosed in Mar 2018 Clinical stage IIIC, cT4N1c, 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 She is now s/p chemoradiation (Viv protocol) treatment completed on 08/02/18. No interval complaints. Reports occasional blood with stool and perianal irritation with liquid stools occassionally. Recent CT imagi ng without e/o recurrence. Underwent biopsy of vulvar lesion recently with PAYROLL EXAMINER, no e/o carcinoma. Imaging Results MRI Pelvis: 07/21/2019, CT Abdomen/Pelvis: 10/31/2018, CT Chest : 10/31/2018 MRI Rectum WO/W IVCON 07/21/2019 Impression: Interval decrease in size of anorectal tumor, without eviden ce of residual viable tumor. No pelvic lymphadenopathy. CT Chest W IVCON 10/31/2018 Impression: Stable 3-4 mm groundglass nodular opacity in the right apex. No new or enlarging nodules identified. No lymphadenopathy in the chest. CT ABD/PEL W IVCON 10/31/2018 Impression: Interval improvement of rectal/anal wall thickening and decr eased enhancement. Interval decrease in size of retroperitoneal including parac eliac lymph node and significant decrease in size of mesorectal lymph no lisa. Colonic diverticulosis. PATHOLOGY RESULTS: Surgical Pathology 08/10/2009 FINAL DIAGNOSIS : Perirectal tissue, biopsy (A) - Smooth muscle, fibrous tissu e, and minute fragments of benign squamous epithelium. - No evidence of carcinoma. CEA: Level 1.1 PAST MEDICAL HISTORY Diagnosis Date - Anal cancer (HCC) 04/21/2018 - Arthritis - GERD (gastroesophageal reflux disease) PAST SURGICAL HISTORY Procedure Laterality Date - HYSTERECTOMY - PAST SURGICAL HISTORY OF knee R replacement - PAST SURGICAL HISTORY OF Cyst removed from left foot Current Outpatient Medications Medication Sig Dispense Refill - APPLE CIDER VINEGAR ORAL Take by mouth. - FAMOTIDINE ORAL Take 20 mg by mouth. - multivitamin with minerals (HAIR,SKIN AND NAILS) tablet Ta ke 1 tablet by mouth once daily. - COMPOUNDED PRESCRIPTION Hemp Gummy Zaina rs: Take two each by mouth once daily. - lidocaine (XYLOCAINE) 5 % ointment Apply 1 applicati on to affected area as needed. 50 g 0 - estradiol (ESTRACE) 0.01 % (0.1 mg/gram) vaginal cream Use 3 g vaginally once daily. 42.5 g 1 - VITAMIN B COMPLEX ORAL Take 1 tablet by mouth once daily. - acetaminophen (TYLENOL) 50 0 mg tablet Take 1,000 mg by mouth every 6 hours as needed for Pain. - pantoprazole sodium (PANTOPRAZOLE ORAL) Take 40 mg by mout h once daily. No current facility-administered medications for this visit. ALLERGIES No Known Allergies FAMILY HISTORY Problem Relation Age of Onset - Brain Cancer Mother lung and brain - Breast Cancer Sister 45 - Breast Cancer Maternal Grandmother - Cancer Other mat aunts bone cancer - Heart Father Social History Tobacco Use - Smoking status: Never Smoker - Smokeless tobacco: Never Used Substance Use Topics - Alcohol use: No - Drug use: No Review of Systems: GENERAL: No weight loss, malaise or fevers RESPIRATORY: Negative for cough, hemoptysis, wheezing, COPD, dyspnea or shortness of breath CARDIOVASCULAR: Negative for chest pain, leg swelling, hyp ertension, CHF or palpitations GI: No nausea, vomiting, or diarrhea : No history of dysuria, frequency or incontinence PAYROLL EXAMINER: wound from bx MUSCULOSKELETAL: Negative for joint pain or swelling, back pain or muscle pain SKIN: Negative for lesions, rash, and itching PSYCH: Negative for sleep disturbance, mood disorder a nd recent psychosocial stressors HEMATOLOGY/LYMPHOLOGY: Negative for prolonged bleeding, brui sing easily or swollen nodes ENDOCRINE: Negative for cold or heat intolerance, polyuria, polydipsia and goiter NEURO: No history of headaches, syncope, paralysis, seizures or tremors ANEMIA: No A 10 point review of systems was performed. All other syst ems are negative, other than stated above and HPI. Physician attestation: Efrain Freire MD I have confirmed and edited as necessary , the PFSH and ROS obtained by others. Thania Lenz MD Physical Exam: 02/06/20 1043 Weight: 91.6 kg (202 lb) Height: 157.5 cm (5' 2) General: Alert and oriented, No acute distress Skin: Normal color, no rash, no lesions. HEENT: EOM, pupils equal, round and reactive. Cardiovascular: Normal rate in regular rhythm Lungs: Normal breath sounds, no wheezes or crackles. Abdomen: Soft, non-distended, non-tender Extremities: No deformity, no significant edema Neurological: Normal cognition and motor skills. 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 After digital exam with a lubricated finger, the scope was easily inserted. There were no hemorrhoids enlarged. The mucosa was otherwise normal. Patient tolerated procedure well. perianal skin radiation changes, mild anal stenosis digitall y dilated, no palpable mass, rectum with mild radiation proctitis - somewhat rigid, no e/o tumor recurrence Assessment Assessment: Cynthia Wallace is a 64 year old w/anal SCC (cT4N1c) s/p Nig ro protocol completed July 2018. No e/o recurrence on sigmoidoscopy. The risks, benefits and anticipated outcomes of the pr oposed procedures, the risks and benefits of the al ternatives to the procedure and the roles and tasks of the personnel to be invol janna were discussed with the patient and the patient consents to the procedure and agrees to proceed. Plan: Recommend interval MRI pelvis/rectum to better assess for recurrence (better than CT). Follow up in 3 months All questions were answered and the patient had no further concerns at this time@ Ciaran was given our contact information if she has any fur ther questions or concerns. I have seen and evaluated the patient an d discussed the case with the resident physician. I agree with the assessment and plan as documente d in the resident?s note. I spent 40 minutes in the visit, with more than 50% of the total [id number] time of the visit in counseling / coordination of care. Thania Lenz MD Colorectal Surgery Referring Provider: THANIA LENZ [[id number]] Allergies As of Date: 02/06/2020 (No Known Allergies) Date Reviewed: 01/04/2020 Reviewed by: Miriam Guardado - Fully Assessed Reason for Visit: Established Patient [175] Visit Diagnosis:Malignant neoplasm of anus (HCC) [C21.0] Order(s):MRI RECTUM WO/W IVCON [[id number]] Order #: [id number] FUTURE iv contrast (will be provided with radiology test)MRI Rectum Inject, intravenously, once for 1 dose. No IV access, insert saline lock prior to the beginning of sedation, infusion, injection of imaging exam. Discontinue saline lock post exam. If Pt has a central line or IVAD, may access for administration according to line specific valeria sing protocol. Once exam is complete flush line and de-access acc ording to line specific nursing protocol in the MR contrast administra tion guidelines link.Disp: 1 EachRfl: 0 enteric contrast (will be provided with radiology test)MRI R ECTUM WO/W. Administer, As Directed One Time Only, via Oral, Recta l, both Oral and Rectal, Enteric Tube, Stoma or Indwelling Catheter, ? Enteric Contrast as designated per enteric contrast guidelinesDisp: 1 EachRfl: 0 Prescriptions as of 02/06/2020 Sig: PANTOPRAZOLE ORAL Take 40 mg by mouth once keyla* IV CONTRAST (RADIOLOGY PROCED* MRI Rectum Inject, intravenou * ENTERIC CONTRAST (RADIOLOGY P* MRI RECTUM WO/W. Administer, * APPLE CIDER VINEGAR ORAL Take by mouth. FAMOTIDINE ORAL Take 20 mg by mouth. MULTIVITAMIN WITH MINERALS TA* Take 1 tablet by mouth once d * COMPOUNDED PRESCRIPTION Hemp Gummy Bears: Take two ea* LIDOCAINE 5 % TOPICAL OINTMENT Apply 1 application to affect * ESTRADIOL 0.01% (0.1 MG/GRAM)* Use 3 g vaginally once daily. 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 No IV access, insert saline lock prior to the beginning of sedation, infusion, in jection of imaging exam. Discontinue saline lock post exam. If Pt has a central line or IVAD, may access for administration according to vivek e specific nursing protocol. Once exam is complete flush line and de-ac cess according to line specific nursing protocol in the MR contra st administration guidelines link. ENTERIC CONTRAST (RADIOLOGY PROCEDUR* 1 Ea* 0 02/06/202005/2020 Class: In Office Sig: MRI RECTUM WO/W. Administer, As Directed One Time Only, via Oral, Rectal, both Oral and Rectal, Enteric Tube, Stoma or Indwell ing Catheter,? Enteric Contrast as designated per enteric contra st guidelines Encounter Status:Closed by MD THANIA LENZ on 02/07/20 cnpn on 2020-01-08 CNPN Telephone (OBGYWM) Normal 01-08-2020 [place] [facility] CYNTHIA WALLACE ([id number]) 1955 [facility] Time Provider Department ([id number]) 01/08/20 DENISE DOUGHERTY) OBGYWM During your visit today, we recorded the following informati on about you: Denise Dougherty APRN.SIHA 01/08/2020 3:32 PM Signed Spoke with pt regarding biopsy results. Informed her of referral to wound care at [facility]. Patient agrees with plan. Sunil Dougherty APRN.CNP Allergies As of Date: 01/08/2020 (No Known Allergies) Date Reviewed: 01/04/2020 Reviewed by: Miriam Guardado - Fully Assessed Reason for Visit: Results [95] Prescriptions as of 01/08/2020 Sig: APPLE CIDER VINEGAR ORAL Take by mouth. FAMOTIDINE ORAL Take 20 mg by mouth. MULTIVITAMIN WITH MINERALS TA* Take 1 tablet by mouth once d * COMPOUNDED PRESCRIPTION Hemp Gummy Bears: Take two ea* LIDOCAINE 5 % TOPICAL OINTMENT Apply 1 application to affect * ESTRADIOL 0.01% (0.1 MG/GRAM)* Use 3 g vaginally once daily. 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 Skin, right and left labia majora vulva, biopsies - Vas cular ectasia and reactive epidermal changes compatible with excoriation. SDB/GKH/td 01/08/2020 COMMENT Sections demonstrate epidermis with irregular acanthosis, hy pergranulosis, and compact orthokeratosis. Within the dermis is fibrosis wi th ectatic blood vessels and scattered multinucleated stromal cells. Overall, the histologic features are non-specific and could represent and erythema reaction or possibly, mild chronic eczematous derma titis. Correlation with the clinical findings is suggested. Bebeto Noriega M.D. (Electronic Signature) SPECIMEN SUBMITTED A: RIGHT AND LEFT LABIA MAJORA VULVA, BIOPSY CLINICAL DATA POSTMENOPAUSAL GROSS DESCRIPTION A. Received in formalin are two cylindrical segments of warren soft skin aggregating to 1.2 x 0.3 x 0.3 cm. Specimen is not sectioned . Totally submitted in formalin in one cassette. Gross examination performed at [facility], [address] [place] [address] 01/05/2020 1:05:53 AM Date of Report: 01/08/2020 Date of Procedure: 01/04/2020 Date of Receipt: 01/04/2020 Submitted by: DENISE DOUGHERTY Location: [facility] Diagnostic interpretation performed at [place] [address]. CLIA Number: [id number] progress on 2019-12 PROGRESS HNO ID: [id number] Normal 01-04-2020 [facility] Author: Denise Salcedo ([id number]) Service: ? Author Type: Nurse Practitioner Type: Progress Notes Filed: 01/04/2020 11:25 AM Note Text: Cynthia Wallace is a 64 year old female who presents for pro blem visit Vulvar rash going issue . HPI: pt is still having issue with vulvar and anus area wher e she received radiation treatment 2.5 yr ago. She states that in the groin area the skin has actually spit open and bleed. She states that the area i s painful and itchy. She is having a hard time believing that she is still having all this skin irritation from radiation treatment. PAST MEDICAL HISTORY Diagnosis Date - Anal cancer (HCC) 04/21/2018 - Arthritis - GERD (gastroesophageal reflux disease) PAST SURGICAL HISTORY Procedure Laterality Date - HYSTERECTOMY - PAST SURGICAL HISTORY OF knee R replacement - PAST SURGICAL HISTORY OF Cyst removed from left foot FAMILY HISTORY Problem Relation Age of Onset - Brain Cancer Mother lung and brain - Breast Cancer Sister 45 - Breast Cancer Maternal Grandmother - Cancer Other mat aunts bone cancer - Heart Father Social History Tobacco Use - Smoking status: Never Smoker - Smokeless tobacco: Never Used Substance Use Topics - Alcohol use: No - Drug use: No Current Outpatient Medications Medication Sig - FAMOTIDINE ORAL Take 20 mg by mouth. - multivitamin with minerals (HAIR,SKIN AND NAILS) tablet Ta ke 1 tablet by mouth once daily. - COMPOUNDED PRESCRIPTION Hemp Gummy Bears: Take two each by mouth once daily. - lidocaine (XYLOCAINE) 5 % ointment Apply 1 application to affected area as needed. - estradiol (ESTRACE) 0.01 % (0.1 mg/gram) vaginal cream Use 3 g vaginally once daily. - VITAMIN B COMPLEX ORAL Take 1 tablet by mouth once daily. - acetaminophen (TYLENOL) 500 mg tablet Take 1,000 mg by papo th every 6 hours as needed for Pain. - pantoprazole sodium (PANTOPRAZOLE ORAL) Take 40 mg by mout h once daily. No current facility-administered medications for this visit. Allergies As of Date: 01/04/2020 (No Known Allergies) Fully Assessed 08/10/2019 REVIEW OF SYSTEMS Abdomen: No bloating, early satiety, indigestion, or increas ed flatulence. No abdominal pain, nausea, vomiting, diarrhea, or constipati on. Bladder: No dysuria, gross hematuria, urinary frequency, uri nary urgency, or incontinence. Expanded ROS: N/A Allergies and current medication updated:Yes EXAM: There were no vitals taken for this visit. GENERAL: pleasant, female in no apparent distress HEENT: Normocephalic, atraumatic, mucus membranes moist and no lesions CHEST: Normal inspiratory effort PELVIC: external genitalia normal, normal Bartholin's glands , urethra, [place]'s glands, diffused bright red rash like skin to vulvar area into perianal region ( Dr Sherwood also examined pt) NEURO: alert and oriented x3,exam grossly non-focal EXTREMITIES: normal ASSESSMENT/PLAN: 1. Vulvar irritation - ICD9: 624.8, ICD10: N90.89 - Vulvar biopsy SO Loo rabharti Wallace is a 64 year old female who presents today for a vulvar biopsy. Indication: persistent pruritis, hx of radiation UNIVERSAL PROTOCOL / SAFETY CHECKLIST Procedure to be performed: vulvar biopsy Sign in Communication: Completed Time Out: Team Confirms the Correct Patient, Correct Procedu re, Correct Site and Site Marking, Correct Position (if applicable), Pre p and Dry Time (if applicable). Time: 956 Affirmation of Time Out: YES Sign Out Discussion: Completed Denise Dougherty APRN.CNP PROCEDURE NOTE: GROSS LESIONS: No BIOPSY: Area was cleansed with betadine and anesthetized wit h 3mL 1% lidocaine with 1:100,000 epi. 4mm Neil punch used to biopsy region. HEMOSTASIS: Obtained with silver nitrate and pressure Procedure Summary: Patient tolerated procedure well. *Dr Sherwood present during procedure ASSESSMENT: Persistent vulvar irritation PLAN: Specimens labeled and sent to Pathology. Will notify patient of results in 1-2 weeks. Post-procedure instructions reviewed and writt en material given to the patient. Denise Dougherty APRN.CNP cnov on 2020-01-04 CNOV Office Visit (OBGYWM) Normal 01-04-20 [place] CYNTHIA Bardales ([id number]) 1955 [facility] Date Time Provider Department ([id number]) 01/04/20 9:15 AM DENISE DOUGHERTY (ISHA) OBGYWM During your visit today, we recorded the following informati on about you: Blood pressure Weight 110/66 90.5 kg Denise Dougherty APRN.CNP 01/04/2020 11:25 AM Signed Cynthia Wallace is a 64 year old female who pres ents for problem visit Vulvar rash going issue . HPI: pt is still having issue with vulvar and anus area wher e she received radiation treatment 2.5 yr ago. She stat es that in the groin area the skin has actually spit open and bleed. She states that the area is painful and itchy. She is having a hard time believing that she is still having all this skin irritation from radiation treatment. PAST MEDICAL HISTORY Diagnosis Date - Anal cancer (HCC) 04/21/2018 - Arthritis - GERD (gastroesophageal reflux disease) PAST SURGICAL HISTORY Procedure Laterality Date - HYSTERECTOMY - PAST SURGICAL HISTORY OF knee R replacement - PAST SURGICAL HISTORY OF Cyst removed from left foot FAMILY HISTORY Problem Relation Age of Onset - Brain Cancer Mother lung and brain - Breast Cancer Sister 45 - Breast Cancer Maternal Grandmother - Cancer Other mat aunts bone cancer - Heart Father Social History Tobacco Use - Smoking status: Never Smoker - Smokeless tobacco: Never Used Substance Use Topics - Alcohol use: No - Drug use: No Current Outpatient Medications Medication Sig - FAMOTIDINE ORAL Take 20 mg by mouth. - multivitamin with minerals (HAIR,SKIN AND NAILS) tablet Ta ke 1 tablet by mouth once daily. - COMPOUNDED PRESCRIPTION Hemp Gummy Zaina rs: Take two each by mouth once daily. - lidocaine (XYLOCAINE) 5 % ointment Apply 1 applicati on to affected area as needed. - estradiol (ESTRACE) 0.01 % (0.1 mg/gram) vaginal cream Use 3 g vaginally once daily. - VITAMIN B COMPLEX ORAL Take 1 tablet by mouth once daily. - acetaminophen (TYLENOL) 50 0 mg tablet Take 1,000 mg by mouth every 6 hours as needed for Pain. - pantoprazole sodium (PANTOPRAZOLE ORAL) Take 40 mg by mout h once daily. No current facility-administered medications for this visit. Allergies As of Date: 01/04/2020 (No Known Allergies) Fully Assessed 08/10/2019 REVIEW OF SYSTEMS Abdomen: No bloating, early satiety, indigestion , or increased flatulence. No abdominal pain, nausea, vomiting, diarrhea, or constipation. Bladder: No dysuria, gross hematuria, urinary frequenc y, urinary urgency, or incontinence. Expanded ROS: N/A Allergies and current medication updated:Yes EXAM: There were no vitals taken for this visit. GENERAL: pleasant, female in no apparent distress HEENT: Normocephalic, atraumatic, mucus membranes moist and no lesions CHEST: Normal inspiratory effort PELVIC: external genitalia normal, pema l Bartholin's glands, urethra, [place]'s glands, diffused bright red rash like sk in to vulvar area into perianal region ( Dr Sherwood also examined pt) NEURO: alert and oriented x3,exam grossly non-focal EXTREMITIES: normal ASSESSMENT/PLAN: 1. Vulvar irritation - ICD9: 624.8, ICD10: N90.89 - Vulvar biopsy Denise Dougherty APRN.CNP Cynthia Wallace is a 64 year old female who presents today for a vulvar biopsy. Indication: persistent pruritis, hx of radiation UNIVERSAL PROTOCOL / SAFETY CHECKLIST Procedure to be performed: vulvar biopsy Sign in Communication: Completed Time Out: Team Confirms the Correct Patient, Correct P rocedure, Correct Site and Site Marking, Correct Position (if applicable), Prep and Dry Time (if applicable). Time: 09 Affirmation of Time Out: YES Sign Out Discussion: Completed Denise Dougherty APRN.CNP PROCEDURE NOTE: GROSS LESIONS: No BIOPSY: Area was cleansed with betadine and anesthetized wit h 3mL 1% lidocaine with 1:100,000 epi. 4mm Neil punch used to biopsy region. HEMOSTASIS: Obtained with silver nitrate and pressure Procedure Summary: Patient tolerated procedure well. *Dr Sherwood present during procedure ASSESSMENT: Persistent vulvar irritation PLAN: Specimens labeled and sent to Pathology. Will notify patient of results in 1-2 weeks. Post-procedure instructions reviewed and written material given to the patient. SO Loo APRN.CNP 01/04/2020 10:16 AM Signed VULVAR BIOPSY PATIENT INSTRUCTIONS Many conditions may cause your bale sewer to suggest a vul justus biopsy including vulvar itching unresponsive to therapy, ulcerated lesions, pigmented lesions, and tumors. The biopsy result w ill assist your bale sewer to devise a treatment plan suitable to your condition. 1. Usually, there is a local discomfort, swelling, and skin discoloration. Using cold compresses overni ght usually alleviates the discomfort considerably. Warm compresses thereafter can be used as needed. Pres cribed analgesic (pain killers) are not necessary. You may use Advil, T ylenol, etc. for pain relief. 2. You may shower or take tub baths. 3. If sutures are used, they will dissolve in 7-14 days. 4. You should call the office if there i s excessive bleeding, swelling, fever, chills, sweats, or difficulty walking. 5. Biopsy results will be available in 7-10 days. If y ou have not heard your results in 2 weeks please contact your physician. Referring Provider: SELF [[id number]] Allergies As of Date: 01/04/2020 (No Known Allergies) Date Reviewed: 01/04/2020 Reviewed by: Miriam Guardado - Fully Assessed Reason for Visit: Vaginal Problem [117] Primary Visit Diagnosis:Vulvar irritation [N90.89] Order(s):SURGICAL PATHOLOGY [[id number]] Order #: [id number] Prescriptions as of 01/04/2020 Sig: APPLE CIDER VINEGAR ORAL Take by mouth. ACETAMINOPHEN 500 MG TABLET Take 1,000 mg by mouth every * PANTOPRAZOLE ORAL Take 40 mg by mouth once keyla* FAMOTIDINE ORAL Take 20 mg by mouth. MULTIVITAMIN WITH MINERALS TA* Take 1 tablet by mouth once d * COMPOUNDED PRESCRIPTION Hemp Gummy Bears: Take two ea* LIDOCAINE 5 % TOPICAL OINTMENT Apply 1 application to affect * ESTRADIOL 0.01% (0.1 MG/GRAM)* Use 3 g vaginally once daily. 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 The biopsy result will assist your bale sewer to devise a treatment plan suitable to your con dition. 1. Usually, there is a local discomfort, swelling, and skin discoloration. Using cold compresses overnight usually alleviates the disco mfort considerably. Warm compresses thereafter can be used as need ed. Prescribed analgesic (pain killers) are not necessary. You m ay use Advil, Tylenol, etc. for pain relief. 2. You may shower or take tub baths. 3. If sutures are used, they will dissolve in 7-14 days. 4. You should call the office if there is excessive bleeding , swelling, fever, chills, sweats, or difficulty walking. 5. Biopsy results will be available in 7-10 days. If you hav e not heard your results in 2 weeks please contact your physician. Encounter Status:Closed by DENISE DOUGHERTY on 01/04/20 cnpn on 2019-11-14 BRANDY Telephone (ALEXA) Normal 11-14-2019 [place] [facility] CYNTHIA WALLACE ([id number]) 1955 [facility] Date Time Provider Department ([id number]) 11/14/19 JULES MINER During your visit today, we recorded the following informati on about you: Marci Butterfield Pss 11/14/2019 12:45 PM Signed Patient is calling in regards to the chi lls that she has and can not get warm. She also states her whole body hurts, her groin area on le ft side and lower back is also in extreme pain. She has nausea but no fe chantale. Please advise the patient. She states this all started today. Jules Miner MD 11/14/2019 2:27 PM Signed She should measure her temperature before taking Tylenol for pain; and see urgent care or follow with her PCP if her symptom does not i mprove. MD Pretty Lopes, MEDICAL INSTRUCTOR, MEDICAL INSTRUCTOR 11/14/2019 2:32 PM Signed Pt. Notified to take her temp. States she took earlier today , it was 97. Instructed to take tylenol for the pain, and either get in to her PCP or an urgent care. Pt. Voiced understanding. Pretty Peoples LPN Allergies As of Date: 11/14/2019 (No Known Allergies) Date Reviewed: 08/10/2019 Reviewed by: Tisha (Rn) XANDER Dial - Fully Assessed Reason for Visit: Patient Update [1234] Prescriptions as of 11/14/2019 Sig: HYDROCORTISONE 2.5 % TOPICAL * by RECTAL route twice daily. * FAMOTIDINE ORAL Take 20 mg by mouth. MULTIVITAMIN WITH MINERALS TA* Take 1 tablet by mouth once d * COMPOUNDED PRESCRIPTION Hemp Gummy Bears: Take two ea* LIDOCAINE 5 % TOPICAL OINTMENT Apply 1 application to affect * ESTRADIOL 0.01% (0.1 MG/GRAM)* Use 3 g vaginally once daily. 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 Author Type: Physician Type: Progress Notes Filed: 11/04/2019 9:41 AM Note Text: I spoke with Cynthia Wallace on November 03, 2019 by telephone. A verbal informed consent was obtained via a telephone conve rsation with patient ACTIVE PROBLEM LIST Anal Cancer (Hcc) Malignant Neoplasm of Pelvis (Hcc) AJCC Staging: Cancer Staging Anal cancer (HCC) Staging form: Anus, AJCC 8th Edition - Clinical stage from 05/05/2018: Stage IIIC (cT4, cN1c, cM0) le ? ?? HISTORY OF PRESENT ILLNESS: I am seeing Cynthia Wallace today in my clinic for my opinio n regarding anal cancer. She is 62 yo female who after her knee surgery in Dec 2017 s tarted having constipation due to pain meds, but continued after stopping it. Stool was not hard but difficult to pass, pencil thin, a/w significant amount of blood (continues until now). She has been taking Miralax and this is helping with the BMs now. Prior to that has been having low appetite for more than 6 months. Energy is low now for the past 1-2 month s. Has anorectal pain and worse since the colonoscopy. Currently in dependent. Biopsy was c/w squamous cell cancer. No prior history of gen ital warts or non-genital. No history of blood transfusion. ? After biopsy was seen by Delfin and was ordered CT scans an d MRI of the pelvis. Later approved for a PET/CT. MRI showed extension in to the vaginal wall, now with occasional vaginal bleeding. ?she has lost 15 pounds since her diagnosis 2 months ago. ? Previous treatment: Mitomycin-C AND?5FU CIV day 1-4; day 28- 31 with concurrent radiation therapy completed in July 2018 ? Interim history: ?Patient?has no complaints today, except fo r occasional anal irritation with bowel movements, and no rectal bleeding .. MRI pelvis in June 2019 showed decrease in size of anal / rectal elli or without evidence of viable tumor and no pelvic adenopathy. There was no residual anal cancer on her anal biopsy in August 10, 2019 ?She?den ied diarrhea or vaginal bleeding. She has no difficulty with urination bu rning or hematuria. She denies nausea or vomiting. Her appetite is no rmal and her weight has increased. She has no cough or shortness of breat h. ? All medications AND allergies updated and KP score reviewed by me. ? Patient has no known allergies. Current Outpatient Medications Medication Sig - FAMOTIDINE ORAL Take 20 mg by mouth. - multivitamin with minerals (HAIR,SKIN AND NAILS) tablet Ta ke 1 tablet by mouth once daily. - COMPOUNDED PRESCRIPTION Hemp Gummy Bears: Take two each by mouth once daily. - acetaminophen (TYLENOL) 500 mg tablet Take 1,000 mg by papo th every 6 hours as needed for Pain. - pantoprazole sodium (PANTOPRAZOLE ORAL) Take 40 mg by mout h once daily. - iv contrast (will be provided with radiology test) CT Ches t ABD/PEL-Inject, intravenously, once for 1 dose.No IV access, insert saline lock prior to the beginning of sedation, infusion, injection of imaging exam. Discontinue saline lock post exam. If Pt. has a centra l line or IVAD, may access for administration according to line specif ic nursing protocol. Once exam is complete flush line and de-access acc ording to line specific nursing protocol in the CT contrast administration guidelines link. - enteric contrast (will be provided with radiology test) Fo r CT CHESTABD/PEL W IVCON Routine order Administer, As Directed O ne Time Only, via Oral, Rectal, both Oral and Rectal, Enteric Tube, Stoma or Indwelling Catheter, Enteric Contrast as designated per enteric contras t guidelines - lidocaine (XYLOCAINE) 5 % ointment Apply 1 application to affected area as needed. - estradiol (ESTRACE) 0.01 % (0.1 mg/gram) vaginal cream Use 3 g vaginally once daily. - VITAMIN B COMPLEX ORAL Take 1 tablet by mouth once daily. No current facility-administered medications for this visit. REVIEW OF SYSTEMS: CONSTITUTIONAL: No fevers, chills, nightsweats, unintended w eight loss HEENT: Denies frequent or severe heaches, nasal congestion/s inus symptoms, problematic allergy problems. EYES: No diplopia or blurry vision. CARDIOVASCULAR: No chest pain, dyspnea, palpitations, orthop ezequiel, PND, ankle edema. PULM: No dyspnea, unexplained cough. GI: No dysphagia/odynophagia, problematic reflux, constipati on, diarrhea, changes in stool habits, hematochezia, melena. : No new urinary complaints, including dysuria, gross westley turia or pyuria. NEURO: No new balance problems, peripheral weakness/paresthe vanessa or numbness of concern. MUSC-SKEL: No new joint pain, swelling, or erythema. PSY: No concerns regarding depression, anxiety or panic. INTEGUMENTARY: No new skin changes (rash, new or changing mo le, new growth) LABS: Component Latest Ref Rng AND Units 11/02/2019 WBC 3.70 - 11.00 k/uL 4.63 RBC 3.90 - 5.20 m/uL 4.61 Hemoglobin 11.5 - 15.5 g/dL 13.6 Hematocrit 36.0 - 46.0 % 42.0 MCV 80.0 - 100.0 fL 91.1 MCH 26.0 - 34.0 pG 29.5 MCHC 30.5 - 36.0 g/dL 32.4 RDW-CV 11.5 - 15.0 % 12.8 Platelet Count 150 - 400 k/uL 238 MPV 9.0 - 12.7 fL 8.6 (L) Neut% % 74.5 Abs Neut (ANC) 1.45 - 7.50 k/uL 3.44 Lymph% % 14.9 Abs Lymph 1.00 - 4.00 k/uL 0.69 (L) Nicholas% % 8.9 Abs Nicholas <0.87 k/uL 0.41 Eosin% % 1.3 Abs Eosin <0.46 k/uL 0.06 Baso% % 0.4 Abs Baso <0.11 k/uL <0.03 Nucleated Reds 0 /100 WBC 0.0 Absolute nRBC <0.01 k/uL <0.01 Diff Type Auto Diff Component Latest Ref Rng AND Units 11/02/2019 Protein, Total 6.3 - 8.0 g/dL 6.5 Albumin 3.9 - 4.9 g/dL 4.3 Calcium 8.5 - 10.2 mg/dL 9.0 Bilirubin, Total 0.2 - 1.3 mg/dL 0.2 Alkaline Phosphatase 34 - 123 U/L 84 AST 13 - 35 U/L 16 Glucose 74 - 99 mg/dL 84 BUN 7 - 21 mg/dL 16 Creatinine 0.58 - 0.96 mg/dL 0.81 Sodium 136 - 144 mmol/L 142 Potassium 3.7 - 5.1 mmol/L 4.1 Chloride 97 - 105 mmol/L 106 (H) CO2 22 - 30 mmol/L 26 Anion Gap 9 - 18 mmol/L 10 ALT 7 - 38 U/L 14 eGFR- >60 eGFR-All Other Races . >60 CEA 0.0 - 2.9 ng/mL 1.1 Problem discussed: 1. Anal cancer 2. Perirectal pain secondary to radiation proctitis Assessment/Plan: 1. Anal cancer; clinical stage IIIc, squamous cell carcinoma , - Clinical DEMETRIA Plan: - Repeat MRI pelvis and follow-up with Dr. Lenz in January for anoscopy - Repeat CBC, BMP, CT chest abdomen pelvis for annual restag ing OV in 6 months 2. Perirectal pain secondary to radiation proctitis ?- Rectal pain and bleeding has improved?since last year Plan: - Anusol 2.5% hydrocortisone cream twice daily as needed TIME INCREMENT: 15 minutes Jules Miner MD Cc: Dr. Be Lenz comp metabolic panel on 2019-11-02 Albumin [Mass/Vol] 4.3 3.9-4.9 g/dL Normal 11-02-2019 [facility] ([id number]) ALP [Catalytic 84 34-123 U/L Normal 11-02-2019 [facility] activity/Vol] [facility] and ([id number]) ALT [Catalytic 14 7-38 U/L Normal 11-02-2019 [facility] activity/Vol] [facility] and (32061) Anion gap 10 9-18 mmol/L Normal 11-02-2019 [facility] [Moles/Vol] [facility] ([id number]) AST [Catalytic 16 13-35 U/L Normal 11-02-2019 [facility] activity/Vol] [facility] and (02832) Bilirubin [Mass/Vol] 0.2 0.2-1.3 mg/dL Normal 0 [facility] (69663) Calcium [Mass/Vol] 9.0 8.5-10.2 mg/dL Normal 11-02-2019 [facility] (05889) Chloride [Moles/Vol] 106 97-105 mmol/L High 0 [facility] (14578) CO2 [Moles/Vol] 26 22-30 mmol/L Normal 11-02-2019 [facility] (86528) Creatinine 0.81 0.58-0.96 mg/dL Normal 11-02-2019 [facility] [Mass/Vol] [place] (44005) eGFR- Amer. >60 Normal 11-02-2019 [facility] (44749) GFR/1.73 sq M >60 mL/min/{1.73_m Normal 11-02-2019 [facility] predicted among 2} [facility] (81126) non-blacks MDRD (S/P/Bld) [Vol rate/Area] Comment: Result Comment: eGFR (Estima willard GFR) Units of measure: mL/min/1.73 meters squared eGFR is derived from the ree xpressed MDRD Study equation using the following parameters: serum creatinine, age, gender and race. The creatinine assay has been calibrated to be traceable to IDMS. An eGFR <60 mL/min/1.73m2 fo r >3 months is consistent with chronic kidney disease. Refer to KDOQI guidelines for clinical interpretation. In patients with unstable re nal function, e.g. those with acute kidney injury, the eGFR may not accurately reflect actual GFR. Glucose [Mass/Vol] 84 74-99 mg/dL Normal 11-02-2019 [facility] (12597) Comment: Result Comment: The [place] Diabetes Association (ADA) provides guidance for cutoff values for fasting glucose and random glucose. The ADA defines fasting as no caloric intake for at least 8 hours. Fas ting plasma glucose results between 100 to 125 mg/dL indicate increased risk for diabetes (prediabetes). Fasting plasma glucose resul ts greater than or equal to 126 mg/dL meet the criteria for diagnosis of diabetes. In the absence of unequivocal hyperglycemia, results should be confirmed by repeat testing. In a patient with classic s ymptoms of hyperglycemia or hyperglycemic crisis, random plasma glucose results greater than or equal to 200 mg/dL meet the criteria for diagnosis of diabetes. Reference: Standards of [facility] Care in Diabetes 2016, [place] Diabetes Association. Diabetes Care. 2016.39(Suppl 1). Potassium [Moles/Vol] 4.1 3.7-5.1 mmol/L Normal 11-02-19 20 [facility] (51616) Protein [Mass/Vol] 6.5 6.3-8.0 g/dL Normal 11-02-2019 [facility] (72157) Sodium [Moles/Vol] 142 136-144 mmol/L Normal 11-02-2019 [facility] (54205) Urea nitrogen [Mass/Vol] 16 7-21 mg/dL Normal 11-01 [facility] (02083) cea on 2019-11-02 CEA 1.1 0.0-2.9 ng/mL Normal 11-02-2019 [facility] (47068) Comment: Result Comment: Test analyze d by the Aminta DxI method. Performed By: #### CEA ####C [facility], [place] [id number]- [phone] cbc and differential on 2019-11-02 Abs Baso <0.03 <0.11 Normal 11-02-2019 [facility] (50857) Abs Nicholas 0.41 <0.87 k/uL Normal 11-02-2019 [facility] (54308) Abs Neut 3.44 1.45-7.50 k/uL Normal 11-02-2019 [facility] (57294) Absolute nRBC <0.01 <0.01 Normal 11-02-2019 [facility] (23632) Basophils/100 WBC 0.4 % Normal 11-02-2019 [facility] (Bld) [place] (69803) DTYPE Auto Diff Normal 11-02-2019 [facility] (09275) Eosinophils (Bld) 0.06 <0.46 k/uL Normal 11-02-2019 [facility] [#/Vol] [place] (16300) Eosinophils/100 WBC 1.3 % Normal 11-02-2019 [facility] (Bld) [place] (81789) Erythrocyte 12.8 11.5-15.0 % Normal 11-02-2019 [facility] distribution width C [facility] ([id number]) (RBC) [Ratio] Hematocrit (Bld) 42.0 36.0-46.0 % Normal 11-02-2019 [facility] [Volume fraction] [facility] (28983) Hemoglobin (Bld) 13.6 11.5-15.5 g/dL Normal 11-02-2019 [facility] [Mass/Vol] [place] (69911) Lymphocytes (Bld) 0.69 1.00-4.00 k/uL Low 11-02-2019 [facility] [#/Vol] [place] (70949) Lymphocytes/100 WBC 14.9 % Normal 11-02-2019 [facility] (Bld) [place] (04265) MCH (RBC) [Entitic 29.5 26.0-34.0 pG Normal 11-02-2019 [facility] mass] [place] (03946) MCHC (RBC) 32.4 30.5-36.0 g/dL Normal 11-02-2019 [facility] [Mass/Vol] [place] (52426) MCV (RBC) [Entitic 91.1 80.0-100.0 fL Normal 11-02-2019 [facility] vol] [place] (15788) Monocytes/100 WBC 8.9 % Normal 11-02-2019 C [facility] (Bld) [place] (40032) Neutrophils/100 WBC 74.5 % Normal 11-02-2019 [facility] (Bld) [place] (06088) NRBCs 0.0 0 /100 WBC Normal 11-02-2019 [facility] (64961) Platelet mean volume 8.6 9.0-12.7 fL Low 0 [facility] ([facility]) [Entitic vol] [place] (16412) Platelets (Bld) 238 150-400 k/uL Normal 11-02-2019 [facility] [#/Vol] [place] (09702) RBC (Bld) [#/Vol] 4.61 3.90-5.20 m/uL Normal 11-02-2019 [facility] (88935) WBC (Bld) [#/Vol] 4.63 3.70-11.00 k/uL Normal 11-02-2019 [facility] (22275) cnco on 2019-08-18 CNCO Letter Text Normal 08-18-2019 [facility] ([id number]) surgical pathology on 2019-08-10 SURGICAL Specimen originated from [facility] Normal 08-10-2019 [place] PATHOLOGY Specimen #: [id number] [facility] Submitting Physician: THANIA LENZ [place] ([id number]) FINAL DIAGNOSIS Perirectal tissue, biopsy (A) - Smooth muscle, fibrous tissu e, and minute fragments of benign squamous epithelium. - No evidence of carcinoma. XZ/lh/08-11-2019 LULU STEELE MD (Electronic Signature) SPECIMEN SUBMITTED A: PERIRECTAL, BIOPSY CLINICAL DATA ANAL SQUAMOUS CELL CARCINOMA GROSS DESCRIPTION A. Received in formalin are two pieces of warren-white to warren -red, soft tissue aggregating to 0.9 x 0.2 x 0.2 cm. Totally submitted in one cassette. Gross examination performed at [facility], [address] [place] [address] EJL 08/10/2019 4:52:43 PM Date of Report: 08/14/2019 Date of Procedure: 08/10/2019 Date of Receipt: 08/10/2019 Submitted by: THANIA LENZ Location: [facility] Diagnostic interpretation performed at [facility], [address] [place] [address]. CLIA Number: [id number] pt ed on 2019-08-10 PT ED HNO ID: [id number] Normal 08-10-2019 [facility] Author: Tisha Minor) XANDER Dial [place] ([id number]) Service: ? Author Type: Registered Nurse Type: Patient Education Filed: 08/10/2019 1:23 PM Note Text: PATIENT EDUCATION TOPIC: PROCEDURE / SURGERY: Post-op Teachi ng: Med Administration, Symptom Management and Wound Care PATIENT NAME: Cynthia Wallace PATIENT LOCATION: [place] [address]/[place] [address] READINESS TO LEARN COGNITIVE ABILITY: Alert and oriented MOTIVATION TO LEARN: Interested FAMILY SUPPORT: High - Very involved in pt care INSTRUCTION PROVIDED TO: Patient and family member PATIENT LEARNS BEST BY: Individual Instruction Written Instruction - Hand-outs Verbal Instruction FACTORS AFFECTING LEARNING: None PHYSICAL LIMITATIONS AFFECTING LEARNING: None LEARNING RESPONSE DIAGNOSIS: ADULT: Well Adult PATIENT/FAMILY RESPONSE: Verbalizes understanding of: MEDICA L REGIMEN-Importance of following prescribed medical regimen PAIN MANAGEMENT-Effective strategies to manage pain in addit ion to pain medication PHYSICAL RESTRICTIONS-Physical restrictions and recommendati ons after discharge from the hospital METHOD OF INSTRUCTION: Individual instruction Written instruction - handouts Verbal instruction FOLLOW-UP PLAN: Patient instructed to call with any further issues INSTRUCTIONAL AIDS USED: NA SUPPLEMENTAL MATERIAL PROVIDED TO PATIENT: None REFERRAL (RECOMMENDATION): None Electronically Signed By: Tisha Dial RN progress on 2019-07 PROGRESS HNO ID: [id number] Normal 08-10-2019 [facility] Author: Thania Lenz [place] ([id number]) Service: ? Author Type: Physician Type: Progress Notes Filed: 08/10/2019 3:42 PM Note Text: Anal Cancer Tumor Board Follow-up Presentation Date of conference: 07/26/2019 Presenter/specialty: RASHID Clinical stage: III Inguinal Node Involvement: No Distant Metastases: No Type of Imaging Reviewed: MRI Pelvic Recommended Treatment: Biopsy from persisting perirectal mas s Clinical Trial Candidate: No Other Discussion: S/p Viv protocol, completed one year [facility] [place] 08/02/18 Disciplines present: Colorectal Surgery, Medical Oncology, R adiation Oncology, Radiology, Anatomic Pathology and Genetic Counseli ng This is the summary of the general discussion provided at [facility] board conference. The final recommendations will be made by the [facility] care team and the patient after discussing the benefits, ris ks and alternatives to the various treatment options. Evaluated and completed by Thania Lenz MD operative no on 202 OPERATIVE NO HNO ID: [id number] Normal 08-10-19 [facility] Author: Thania Lenz [place] ([id number]) Service: Colorectal Author Type: Physician Type: Operative Report Filed: 2019 11:54 AM Note Text: [facility] - Operative Report [address] [place] [place] [address] [place] CYNTHIA WALLACE : 1955 AGE: 63. SEX: F PATIENT TYPE: A HOSP C: [facility] LOCATION: [id number] ATTENDING PHYSICIAN: Thania Lenz M.D. CSN NUMBER: [id number] DATE OF SURGERY/PROCEDURE: 08/10/2019 INCISION/PROCEDURE START TIME: 11:18 a.m. INCISION CLOSE/PROCEDURE END TIME: 11:39 a.m. PREOPERATIVE DIAGNOSIS: 1. Anal squamous cell carcinoma, status post Viv protocol, and complete response. 2. Submucosal induration of the anorectal canal in right ant erior position. POSTOPERATIVE DIAGNOSIS: 1. Anal squamous cell carcinoma, status post Viv protocol, and complete response. 2. Submucosal induration of the anorectal canal in right ant erior position. SURGEON: Thania Lenz M.D. BACON DE RINDER: Dr. Dayana Irene. SURGERY/PROCEDURE: Anorectal exam under anesthesia, rigid pr octoscopy, biopsy of perirectal tissue, flexible sigmoidoscopy. ANESTHESIA: General OPERATIVE INDICATIONS: The 63-year-old female patient was in itially diagnosed with anal squamous cell carcinoma in March 2018, clinical stage IIIc, cT4 N1c. It was a poorly differentiated squamous cell carcinoma of the anal canal. She underwent chemoradiation by Viv protocol and the treatment was completed on August 02, 2018 . The patient was now overall doing well and noticed some burning with bowel movements and some perianal skin irritation. An MRI from Jun, an interval decrease in size of an anorectal tumor was seen without evidence of residual viable tumor. There was no pelvic lymph adenopathy. At rectal digital palpation, however, in right anterior posi tion, an induration was palpable below the level of the mucosa and af ter discussion at Tumor Board, it was decided to perform a biops y out of this area. OPERATIVE FINDINGS: Radiation changes to perianal skin. No e xternal nodularities or masses. At digital rectal exam, soft and sup ple posterior anal canal. Anteriorly, small area of firmness on right side, which did not feel like regrowth of tumor, but could corresp ond to the radiation fibrosis, which was seen in MRI. Anovaginal septum soft and noninvolved. John-Cut biopsy of the right anterior firmness p erformed. At flexible sigmoidoscopy up to 40 cm, no mucosal abnormalit ies in sigmoid and rectum. DESCRIPTION OF PROCEDURE: The patient was under general anes thesia and placed in modified lithotomy position. The skin around her a nus was disinfected and she was draped appropriately. The inspection of the perianal skin showed only minor changes due to radiation to the perianal skin. There were no external nodularities or masses. Rectal digital palpation was performed, which demonstrated the posterior pa rt of the anorectal canal soft and supple. Anteriorly, a small area of firmness was felt on the right side. The remaining circumference was soft. The anovaginal septum felt soft as well and not involved by any tumor. The John-Cut needle was used to perform 2 biopsies from the firmn ess in right anterior position around the anorectal canal. Hemostasis was performed using electrocautery. For the rigid proctoscopy, Cavanaugh re tractors had been used. Now, a flexible sigmoidoscopy was done up to a le rebecca of 40 cm above the anal verge and was only slightly impaired by remna nts of stool. There was no sign of any change of the mucosa in sigmoid and rectum, and no signs of inflammation or tumor formation were seen. 10 mL of diluted Marcaine were injected around the excision site in right ant erior position of the anorectal canal. The anus was dressed using a gauze a nd tape. The operation was entirely performed by myself and my assist ant. Thania Lenz M.D. BEATRIS:[id number] /[id number] cc: cbc on 2019-08-10 Absolute nRBC <0.01 <0.01 Normal 08-10-2019 [facility] ([id number]) Comment: Performed By: #### CBC ####C [place] [phone] Erythrocyte distribution 13.1 11.5-15.0 % Normal 08-10 [facility] width (RBC) [Ratio] [place] (34267) Comment: Performed By: #### CBC ####C [place] [phone] Hematocrit (Bld) [Volume 43.6 36.0-46.0 % Normal 08-10 [facility] fraction] [place] (92304) Comment: Performed By: #### CBC ####C [place] [phone] Hemoglobin (Bld) 14.1 11.5-15.5 g/dL Normal 08-10-2019 [facility] [Mass/Vol] [place] (56140) Comment: Performed By: #### CBC ####C [place] [phone] MCH (RBC) [Entitic mass] 29.6 26.0-34.0 pG Normal 08-10 [facility] (31778) Comment: Performed By: #### CBC ####C [address] [id number] [phone] MCHC (RBC) [Mass/Vol] 32.3 30.5-36.0 g/dL Normal 08-10-19 20 [facility] (68318) Comment: Performed By: #### CBC ####C [place] [id number] [phone] MCV (RBC) [Entitic vol] 91.6 80.0-100.0 fL Normal 08-10 [facility] (73165) Comment: Performed By: #### CBC ####C [address] [id number] [phone] Platelet mean Unable to report 9.0-12.7 Normal 0 [facility] volume (Bld) [facility] (13829) [Entitic vol] Comment: Performed By: #### CBC ####C [address] [phone] Platelets (Bld) Platelets Clumped, 150-400 Normal 08-10 [facility] [#/Vol] Estimate Normal [facility] (06858) Comment: Result Comment: No clot dete cted. Platelet count confirmed by manual review of peripheral blood smear. Performed By: #### CBC ####C [address] [id number] [phone] RBC (Bld) [#/Vol] 4.76 3.90-5.20 m/uL Normal 08-10-2019 [facility] (81625) Comment: Performed By: #### CBC ####C [address] [id number] [phone] WBC (Bld) [#/Vol] 4.16 3.70-11.00 k/uL Normal 08-10-2019 [facility] ([id number]) Comment: Performed By: #### CBC ####C [facility] [address] [place], [place] [phone] anes post on 08-10 ANES POST HNO ID: [id number] Normal 08-10-2019 [facility] Author: Gage Salcedo ([id number]) Service: Anesthesiology Author Type: Anesthesiologist Type: Anesthesia PostOp Filed: 08/10/2019 1:06 PM Note Text: POST ANESTHESIA EVALUATION NOTE SERVICE DATE: 08/10/2019 SERVICE TIME: 1:06 PM : 1955 Vitals: 08/10/19 0705 08/10/19 1212 08/10/19 1230 08/10/19 1243 Temp: 36.5 ?C (97.7 ?F) 36.2 ?C (97.2 ?F) 36.6 ?C (97.9 ?F) 36.1 ?C (97 ?F) 08/10/19 1212 08/10/19 1215 08/10/19 1230 08/10/19 1243 BP: 138/78 124/60 124/58 124/68 08/10/19 1212 08/10/19 1215 08/10/19 1230 08/10/19 1243 Pulse: 80 74 75 72 08/10/19 1212 08/10/19 1215 08/10/19 1230 08/10/19 1243 Resp: 12 12 16 24 08/10/19 1212 08/10/19 1215 08/10/19 1230 08/10/19 1243 SpO2: 99% 99% 97% 99% Validated Vital Signs: Yes POST ANES STATUS: No apparent anesthetic complications. The patient is appropriately hydrated with stable respiratory and cardiovas cular status. Patient has safe and adequate airway control. The patient rebolledo s appropriate pain relief and no significant post operative nausea or vomi ting. The patient has achieved baseline mental status. Intra-Operative Events: No Significant Anesthesia Events Further assessment by Anesthesia Service: None Other Remarks: SIGNATURE: Gage Lynn MD PATIENT NAME: Cynthia Wallace DATE: August 10, 2019 TIME: 1:06 PM PAGER/CONTACT #: [id number] type and scr (30d) on 2019-08-08 ABO/RH(D) O POSITIVE Normal 08-08-[address] [facility] ([id number]) Comment: Performed By: #### [id number] ## ##[facility] [id number] [place], [place] [phone] history physical on 2019-08-08 HISTORY HNO ID: [id number] Normal 08-08-2019 [place] PHYSICAL Author: Thania Taylor Service: ? [place] Author Type: Physician ([id number]) Type: HANDP Filed: 08/09/2019 11:44 AM Note Text: HISTORY AND PHYSICAL EXAMINATION SERVICE DATE: 08/08/2019 SERVICE TIME: 11:25 AM PRIMARY CARE PHYSICIAN: Be Esquivel DO REASON FOR VISIT Cynthia Wallace is a 63 year old female who is being seen fo r discussion of EUA 08/10/2019 The patient has the following: ACTIVE PROBLEM LIST Anal Cancer (Hcc) Malignant Neoplasm of Pelvis (Hcc) SUBJECTIVE CHIEF COMPLAINT: Mucus discharge LA. Minor bleeding on paper only. HPI: Weight and appetite is good. No CIBH. No blood in stool . She had MRI rectum on 07/21/2019 - Interval decrease in size of anorectal tumor, without evidence of residual viable tumor. No pelvic lymphad enopathy. FUNCTIONAL STATUS: Do heavy work around the house, such as s crubbing floors, lifting or moving heavy furniture (8.00 METs) PAST MEDICAL HISTORY Diagnosis Date - Anal cancer (HCC) 04/21/2018 - Arthritis - GERD (gastroesophageal reflux disease) PAST SURGICAL HISTORY Procedure Laterality Date - HYSTERECTOMY - PAST SURGICAL HISTORY OF knee R replacement - PAST SURGICAL HISTORY OF Cyst removed from left foot FAMILY HISTORY Problem Relation Age of Onset - Brain Cancer Mother lung and brain - Breast Cancer Sister 45 - Breast Cancer Maternal Grandmother - Cancer Other mat aunts bone cancer - Heart Father SOCIAL HISTORY: Social History Tobacco Use - Smoking status: Never Smoker - Smokeless tobacco: Never Used Substance Use Topics - Alcohol use: No - Drug use: No MEDICATIONS Prior to Admission medications as of 06/01/19 1536 Medication Sig Last Dose Taking FAMOTIDINE ORAL Take 20 mg by mouth. Yes multivitamin with minerals (HAIR,SKIN AND NAILS) tablet Take 1 tablet by mouth once daily. Yes COMPOUNDED PRESCRIPTION Hemp Gummy Bears: Take two each by m outh once daily. lidocaine (XYLOCAINE) 5 % ointment Apply 1 application to af fected area as needed. estradiol (ESTRACE) 0.01 % (0.1 mg/gram) vaginal cream Use 3 g vaginally once daily. Patient not taking: Reported on 03/27/2019 VITAMIN B COMPLEX ORAL Take 1 tablet by mouth once daily. acetaminophen (TYLENOL) 500 mg tablet Take 1,000 mg by mouth every 6 hours as needed for Pain. pantoprazole sodium (PANTOPRAZOLE ORAL) Take 40 mg by mouth once daily. Not Taking No medication comments found. CURRENT ALLERGIES ALLERGIES No Known Allergies REVIEW OF SYSTEMS PAIN ASSESSMENT: General: No weight loss, malaise or fevers. Neuro: No Hx of stroke or seizures Respiratory: No history of current cough or dyspnea, or pneu monia in the past 6 weeks. No history of respiratory/pulmonary symptoms o r problems Cardiovascular: No history of HTN requiring medication, no h istory of angina, CHF, [place], cardiac surgery or stents. Denies rest pain , gangrene or revascularization/amputation for PVD. No history of cardiova scular symptoms or problems. GI: anal cancer : No history of UTI in past 6 weeks. No history of renal f ailure. Not currently on or requiring dialysis. No history of symptom s or problems. PAYROLL EXAMINER: Negative for abnormal vaginal bleeding, abnormal vagina l discharge. : N/A Endocrine: No history of diabetes. Has not taken steroids wi thin the past 30 days. No history of endocrinological symptoms or problems . Hematology: No history of bleeding or clotting disorder. Pt is not taking anti-coagulation or platelet medications. No history of westley tological symptoms or problems. Oncology: No history of CA metastasis, chemo within 30 days, or radiotherapy within 90 days. Has not lost 10% of body wt in 6 months. No history of oncological symptoms or problems. Psych: Anxiety Musculoskeletal: +knee pain Skin: Negative for lesions, rash and itching. Anemia: No I have confirmed and edited as necessary, the PFSH and ROS o btained by others. Thania Lenz MD PHYSICAL EXAM BP 171/83 Pulse 61 Temp (Src) 98.4 (Oral) Ht 5' 2 (1. 58m) Wt 190 lb 3.2 oz (86.3kg) SpO2 98% BMI 34.78 kg/(m2). General: Alert and oriented Skin: Normal color, no rash, no lesions. HEENT: EOM, pupils equal, round and reactive. Cardiovascular: Normal S1 AND S2, no rubs, murmurs or gallops. No JVD. Pulse regular. Lungs: Normal breath sounds, no wheezes or crackles. Abdomen: Soft, non-tender, no rigidity. Extremities: No deformity, no edema or tenderness, no joint swelling or clubbing. Neurological: Normal cognition and motor skills. Pulses: Carotid and radial pulses normal +2. 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 The risks, benefits and anticipated outcomes of the several proposed procedures, the risks and benefits of the alternatives to th e procedure and the roles and tasks of the personnel to be involved were discussed with the patient and the patient consents to the procedure a nd agrees to proceed. PLAN CONSULTS: Patient does not require consults for optimization at this t brian. Procedure: EUA anorectum, possible bx anal canal, possible s igmoidoscopy The risks, benefits and anticipated outcomes of the procedur e, the risks and benefits of the alternatives to the procedure and the ro les and tasks of the personnel to be involved were discussed with the helena ent and the patient consents to the procedure and agrees to proceed. I verify that I personally obtained Cynthia Wallace's consen t. The Following Tests/Procedures Have Been Initiated: None Instructions Given to Patient: Patient given verbal and written preop instructions and voic es comprehension and compliance. I have seen and evaluated the patient and discussed the case with the resident physician. I agree with the assessment and plan as documented in the resident?s note. I spent 25 minutes in the visit, with more than 50% of the t [facility] cijx-ox-loyi time of the visit in counseling / coordination of care. Thania Lenz MD Dept of COLORECTAL SURGERY August 08, 2019 11:25 AM ecg complete on ECG COMPLETE NAME : CYNTHIA WALLACE 2019 [facility] PID : [id number] Andrae adkins ([id number]) : 1955 Gender : Female Race : ORD : [id number] Procedure Date : Aug 08 2019 13:30:42 Edit Date : Aug 11 2019 17:23:24 Diagnosis:SINUS BRADYCARDIA POSSIBLE INFERIOR MYOCARDIAL INFARCTION , AGE UNDETERMINED ABNORMAL ECG Confirmed by DANA ROSALES MD ([id number]) on 08/11/2019 5:23:16 PM Ventricular Rate : 56 BPM Atrial Rate : 56 BPM P-R Interval : 142 ms QRS Duration : 88 ms Q-T Interval : 458 ms QTC Calculation(Bazett) : 441 ms P [place] : 62 degrees R [place] : 16 degrees T [place] : 47 degrees Test Reason : Location : 119 : A17 A17 Overread By : DANA ROSALES MD Edited By : DANA ROSALES MD Referred By : THANIA LENZ Acquired by : An Syed metabolic panel on 2019-08-08 Albumin [Mass/Vol] 4.6 3.9-4.9 g/dL Normal 08-08-2019 [facility] ([id number]) Comment: Performed By: #### CMP, CBC ####[address] [phone] ALP [Catalytic activity/Vol] 82 34-123 U/L Normal 0 08-08-2019 [facility] ([id number]) Comment: Performed By: #### CMP, CBC ####[address] [phone] ALT [Catalytic activity/Vol] 12 7-38 U/L Normal 0 08-08-2019 [facility] ([id number]) Comment: Performed By: #### CMP, CBC ####[place] [address] [place], [place] [phone]- [phone] Anion gap [Moles/Vol] 14 9-18 mmol/L Normal 08-08-19 [facility] ([id number]) Comment: Performed By: #### CMP, CBC ####[address] [phone] AST [Catalytic activity/Vol] 20 13-35 U/L Normal 0 08-08-2019 [facility] ([id number]) Comment: Performed By: #### CMP, CBC ####[place] [address] [address] [place], [place] [phone] Bilirubin [Mass/Vol] 0.3 0.2-1.3 mg/dL Normal 0 [facility] ([id number]) Comment: Performed By: #### CMP, CBC ####[place] [address] [address] [place], [place] [phone]- [phone] Calcium [Mass/Vol] 9.8 8.5-10.2 mg/dL Normal 08-08-2019 [facility] ([id number]) Comment: Performed By: #### CMP, CBC ####[place] [address] [address] [place], [place] [phone] Chloride [Moles/Vol] 103 97-105 mmol/L Normal 0 [facility] ([id number]) Comment: Performed By: #### CMP, CBC ####[place] [address] [address] [place], [place] [phone] CO2 [Moles/Vol] 25 22-30 mmol/L Normal 08-08-2019 [facility] ([id number]) Comment: Performed By: #### CMP, CBC ####[facility] [place], [place] [phone]- [phone] Creatinine [Mass/Vol] 0.94 0.58-0.96 mg/dL Normal 08-08-19 20 [facility] ([id number]) Comment: Performed By: #### CMP, CBC ####[facility], [place] [phone]- [phone] eGFR- Amer. >60 Normal 08-08-2019 [facility] ([id number]) Comment: Performed By: #### CMP, CBC ####[place] [address] [address] [place], [place] [phone]- [phone] GFR/1.73 sq M predicted among 60 . Normal 08-08-2019 [facility] non-blacks MDRD (S/P/Bld) [Vol (14122) rate/Area] Comment: Result Comment: eGFR (Estima willard GFR) Units of measure: mL/min/1.73 meters squared eGFR is derived from the ree xpressed MDRD Study equation using the following parameters: serum creatinine, age, gender and race. The creatinine assay has been calibrated to be traceable to IDMS. An eGFR <60 mL/min/1.73m2 fo r >3 months is consistent with chronic kidney disease. Refer to KDOQI guidelines for clinical interpretation. In patients with unstable re nal function, e.g. those with acute kidney injury, the eGFR may not accurately reflect actual GFR. Performed By: #### CMP, CBC ####[facility] [place], [place] [phone]- [phone] Glucose [Mass/Vol] 88 74-99 mg/dL Normal 08-08-2019 [facility] ([id number]) Comment: Result Comment: The [place] Diabetes Association (ADA) provides guidance for cutoff values for fasting glucose and random glucose. The ADA defines fasting as no caloric intake for at least 8 hours. Fas ting plasma glucose results between 100 to 125 mg/dL indicate increased risk for diabetes (prediabetes). Fasting plasma glucose resul ts greater than or equal to 126 mg/dL meet the criteria for diagnosis of diabetes. In the absence of unequivocal hyperglycemia, results should be confirmed by repeat testing. In a patient with classic s ymptoms of hyperglycemia or hyperglycemic crisis, random plasma glucose results greater than or equal to 200 mg/dL meet the criteria for diagnosis of diabetes. Reference: Standards of [facility] Care in Diabetes 2016, [place] Diabetes Association. Diabetes Care. 2016.39(Suppl 1). Performed By: #### CMP, CBC ####[facility] [address], [place] [phone] Potassium [Moles/Vol] 4.7 3.7-5.1 mmol/L Normal 08-08-19 [facility] ([id number]) Comment: Performed By: #### CMP, CBC ####[facility] [address], [place] [phone]- [phone] Protein [Mass/Vol] 7.2 6.3-8.0 g/dL Normal 08-08-2019 [facility] ([id number]) Comment: Performed By: #### CMP, CBC ####[facility] [address] [place], [place] [phone]- [phone] Sodium [Moles/Vol] 142 136-144 mmol/L Normal 08-08-2019 [facility] ([id number]) Comment: Performed By: #### CMP, CBC ####[facility] [address] [place], [place] [phone] Urea nitrogen [Mass/Vol] 12 7-21 mg/dL Normal 08-08 [facility] ([id number]) Comment: Performed By: #### CMP, CBC ####[facility] [place], [place] [phone] cnov on 2019-08-08 CNOV Office Visit (KHUSHBOO) Normal 08-08-[address] [place] [address] Brandon WALLACECYNTHIA Olga ([id number]) 1955 [facility] Date Time Provider Department ([id number]) 08/08/19 11:30 AM THANIA LENZ During your visit today, we recorded the following informati on about you: Temperature Pulse Blood pressure Weight 98.4 degrees 61/minute 171/83 86.3 kg Height 1.575 m Thania Lenz MD 08/09/2019 11:44 AM Signed HISTORY AND PHYSICAL EXAMINATION SERVICE DATE: 08/08/2019 SERVICE TIME: 11:25 AM PRIMARY CARE PHYSICIAN: Be Esquivel DO REASON FOR VISIT Cynthiabenjamín Wallace is a 63 year old female who is being seen for discussion of EUA 08/10/2019 The patient has the following: ACTIVE PROBLEM LIST Anal Cancer (Hcc) Malignant Neoplasm of Pelvis (Hcc) SUBJECTIVE CHIEF COMPLAINT: Mucus discharge LA. Minor bleeding on paper only. HPI: Weight and appetite is good. No CIBH. No blood in stool . She had MRI rectum on 07/21/2019 - Interval decrease in size of anorect al tumor, without evidence of residual viable tumor. No pelvic lymphadenopathy . FUNCTIONAL STATUS: Do heavy work around the house, suc h as scrubbing floors, lifting or moving heavy furniture (8.00 METs) PAST MEDICAL HISTORY Diagnosis Date - Anal cancer (HCC) 04/21/2018 - Arthritis - GERD (gastroesophageal reflux disease) PAST SURGICAL HISTORY Procedure Laterality Date - HYSTERECTOMY - PAST SURGICAL HISTORY OF knee R replacement - PAST SURGICAL HISTORY OF Cyst removed from left foot FAMILY HISTORY Problem Relation Age of Onset - Brain Cancer Mother lung and brain - Breast Cancer Sister 45 - Breast Cancer Maternal Grandmother - Cancer Other mat aunts bone cancer - Heart Father SOCIAL HISTORY: Social History Tobacco Use - Smoking status: Never Smoker - Smokeless tobacco: Never Used Substance Use Topics - Alcohol use: No - Drug use: No MEDICATIONS Prior to Admission medications as of 06/01/19 1536 Medication Sig Last Dose Taking FAMOTIDINE ORAL Take 20 mg by mouth. Yes multivitamin with minerals (HAIR,SKIN AN D NAILS) tablet Take 1 tablet by mouth once daily. Yes COMPOUNDED PRESCRIPTION Hemp Gummy Bears: Take two eac h by mouth once daily. lidocaine (XYLOCAINE) 5 % ointment Apply 1 application to af fected area as needed. estradiol (ESTRACE) 0.01 % (0.1 mg/gram) vaginal cream Use 3 g vaginally once daily. Patient not taking: Reported on 03/27/2019 VITAMIN B COMPLEX ORAL Take 1 tablet by mouth once daily. acetaminophen (TYLENOL) 500 mg tablet Take 1,000 mg by mouth every 6 hours as needed for Pain. pantoprazole sodium (PANTOPRAZOLE ORAL) Take 40 mg by mouth once daily. Not Taking No medication comments found. CURRENT ALLERGIES ALLERGIES No Known Allergies REVIEW OF SYSTEMS PAIN ASSESSMENT: General: No weight loss, malaise or fevers. Neuro: No Hx of stroke or seizures Respiratory: No history of c urrent cough or dyspnea, or pneumonia in the past 6 weeks. No history of respiratory/pulmonary symptoms or probl ems Cardiovascular: No history of HTN requiring medi cation, no history of angina, CHF, [place], cardiac surgery or stents. Denies rest pain, gangre ne or revascularization/amputation for PVD. No history of cardiovascular symptoms or problems. GI: anal cancer : No history of UTI in past 6 weeks. No history of renal f ailure. Not currently on or requiring dialysis. No history of symptom s or problems. PAYROLL EXAMINER: Negative for abnormal vaginal bleeding, abnormal vagina l discharge. : N/A Endocrine: No history of diabetes. Has not taken stero ids within the past 30 days. No history of endocrinological symptoms or problems. Hematology: No history of bleeding or clotting disorder. Pt is not taking anti-coagulation or platelet medications . No history of hematological symptoms or problems. Oncology: No history of CA metastasis, chemo within 30 days, or radiotherapy within 90 days. Has not lost 10% of body wt in 6 months. No history of oncological symptoms or problems. Psych: Anxiety Musculoskeletal: +knee pain Skin: Negative for lesions, rash and itching. Anemia: No I have confirmed and edited as necessary , the PFSH and ROS obtained by others. Thania Lenz MD PHYSICAL EXAM BP 171/83 Pulse 61 Temp (Src) 98.4 (Oral) Ht 5' 2 (1.58m) Wt 190 lb 3.2 oz (86.3kg) SpO2 98% BMI 34.78 kg/(m2). General: Alert and oriented Skin: Normal color, no rash, no lesions. HEENT: EOM, pupils equal, round and reactive. Cardiovascular: Normal S1 AND S2, no rubs, murmurs or gallops. No JVD. Pulse regular. Lungs: Normal breath sounds, no wheezes or crackles. Abdomen: Soft, non-tender, no rigidity. Extremities: No deformity, no edema or tenderness, no joint swelling or clubbing. Neurological: Normal cognition and motor skills. Pulses: Carotid and radial pulses normal +2. Anorectal: Deferred Cinder Dump Crane Operator present: Yes, Dasha Power Diagnostic tests reviewed for today's visit: MRI rectum ASSESSMENT There is no known pertinent medical condition wh ich may affect joe-operative course I explained the surgical procedure and potential findings extensively using also anatomic charts and answered all related questions. The risks, benefits and anticipated outcomes of the several proposed procedures, the risks and be nefits of the alternatives to the procedure and the roles and tasks of the [facility] nn to be involved were discussed with the patient and the patient consents to the procedure and agrees to proc eed. PLAN CONSULTS: Patient does not require consults for optimization at this t brian. Procedure: EUA anorectum, possible bx anal canal, possible s igmoidoscopy The risks, benefits and anticipated outcomes of the pr ocedure, the risks and benefits of the alternatives to the procedure and the roles and tasks of the personnel to be involved were discussed with the patient and the patient consents to the procedure and agrees to proceed. I verify that I personally obtained Cynthia Wallace's consen t. The Following Tests/Procedures Have Been Initiated: None Instructions Given to Patient: Patient given verbal and written preop instructions an d voices comprehension and compliance. I have seen and evaluated the patient an d discussed the case with the resident physician. I agree with the assessment and plan as documente d in the resident?s note. I spent 25 minutes in the visit, with more than 50% of the total vhwq-sj-oowb time of the visit in counseling / coordination of care. Thania Lenz MD Dept of COLORECTAL SURGERY August 08, 2019 11:25 AM Referring Provider: THANIA LENZ [[id number]] Allergies As of Date: 08/08/2019 (No Known Allergies) Date Reviewed: 08/08/2019 Reviewed by: Lily (Rn) XANDER Brock - Fully Assessed Primary Visit Diagnosis:Anal cancer (HCC) [C21.0] Prescriptions as of 08/08/2019 Sig: FAMOTIDINE ORAL Take 20 mg by mouth. MULTIVITAMIN WITH MINERALS TA* Take 1 tablet by mouth once d * COMPOUNDED PRESCRIPTION Hemp Gummy Bears: Take two ea* LIDOCAINE 5 % TOPICAL OINTMENT Apply 1 application to affect * ESTRADIOL 0.01% (0.1 MG/GRAM)* Use 3 g vaginally once daily. 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] 05/12/2019 Encounter Status:Closed by MD THANIA LENZ on 08/09/19 cbc on 2019-08-08 Absolute nRBC <0.01 <0.01 Normal 08-08-2019 [facility] ([id number]) Comment: Performed By: #### CMP, CBC ####[place] [address], [place] [phone]- [phone] Erythrocyte distribution 13.2 11.5-15.0 % Normal 08-08 [facility] width (RBC) [Ratio] [place] ([id number]) Comment: Performed By: #### CMP, CBC ####[address], [place] [phone]- [phone] Hematocrit (Bld) [Volume 45.2 36.0-46.0 % Normal 08-08 [facility] fraction] [place] ([id number]) Comment: Performed By: #### CMP, CBC ####[address], [place] [phone]- [phone] Hemoglobin (Bld) 14.5 11.5-15.5 g/dL Normal 08-08-2019 [facility] [Mass/Vol] [place] ([id number]) Comment: Performed By: #### CMP, CBC ####[address], [place] [phone]- [phone] MCH (RBC) [Entitic mass] 30.0 26.0-34.0 pG Normal 08-08 [facility] ([id number]) Comment: Performed By: #### CMP, CBC ####[place] [address] [address], [place] [phone]- [phone] MCHC (RBC) [Mass/Vol] 32.1 30.5-36.0 g/dL Normal 08-08-19 [facility] ([id number]) Comment: Performed By: #### CMP, CBC ####[place] [address] [place], [place] [phone]- [phone] MCV (RBC) [Entitic vol] 93.4 80.0-100.0 fL Normal 08-08 [facility] ([id number]) Comment: Performed By: #### CMP, CBC ####[address] [place], [place] [phone] Platelet mean Unable to report 9.0-12.7 Normal 0 [facility] volume (Bld) [facility] ([id number]) [Entitic vol] Comment: Performed By: #### CMP, CBC ####[address] [phone] Platelets (Bld) Platelets Clumped, 150-400 Normal 08-08 [facility] [#/Vol] Estimate [facility] [place] ([id number]) Comment: Result Comment: Result check ed and verified No clot detected. Platelet count confirmed by manual review of peripheral blood smear. Performed By: #### CMP, CBC ####[address] [phone] RBC (Bld) [#/Vol] 4.84 3.90-5.20 m/uL Normal 08-08-2019 [facility] ([id number]) Comment: Performed By: #### CMP, CBC ####[address] [phone] WBC (Bld) [#/Vol] 5.47 3.70-11.00 k/uL Normal 08-08-2019 [facility] ([id number]) Comment: Performed By: #### CMP, CBC ####[address] [phone] hosp on 2019-07-29 HOSP Patient:Cynthia Wallace Normal 2019 [facility] MRN: Matias ([id number]) Height:5' 2(1.575 m) Weight:190 lb 3.2 oz (86.274 kg) Outpatient Medications as of 08/10/19: FAMOTIDINE ORAL multivitamin with minerals (HAIR,SKIN AND NAILS) tablet COMPOUNDED PRESCRIPTION lidocaine (XYLOCAINE) 5 % ointment estradiol (ESTRACE) 0.01 % (0.1 mg/gram) vaginal cream VITAMIN B COMPLEX ORAL acetaminophen (TYLENOL) 500 mg tablet pantoprazole sodium (PANTOPRAZOLE ORAL) Admission/Clinic Administered Medications as of 08/10/19: lidocaine (PF) 10 mg/mL (1 %) 1-2 mg injection (XYLOCAINE) lactated ringers infusion Problem List: Anal cancer (HCC) [C21.0] 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] Allergies: No Known Allergies Date Verified:08/10/19 Lab Values Lab Value Units Date High Low POTA* 4.7 mmol/L 08/08/2019 5.1 3.7 WESTLEY* 43.6 % 08/10/2019 46.0 36.0 Progress Notes ([facility]): Thania Lenz MD 08/09/2019 11:44 AM Signed HISTORY AND PHYSICAL EXAMINATION SERVICE DATE: 08/08/2019 SERVICE TIME: 11:25 AM PRIMARY CARE PHYSICIAN: Be Esquivel DO REASON FOR VISIT Cynthia Wallace is a 63 year old female who is being seen for discussion of EUA 08/10/2019 The patient has the following: ACTIVE PROBLEM LIST Anal Cancer (Hcc) Malignant Neoplasm of Pelvis (Hcc) SUBJECTIVE CHIEF COMPLAINT: Mucus discharge LA. Minor bleeding on paper only. HPI: Weight and appetite is good. No CIBH. No blood in stool. She had MRI rectum on 07/21/2019 - Interval decr ease in size of anorectal tumor, without evidence of residual viable tumor. No pelvic lymphadenopathy. FUNCTIONAL STATUS: Do heavy work around the house, suc h as scrubbing floors, lifting or moving heavy furniture (8.00 METs) PAST MEDICAL HISTORY Diagnosis Date - Anal cancer (HCC) 04/21/2018 - Arthritis - GERD (gastroesophageal reflux disease) PAST SURGICAL HISTORY Procedure Laterality Date - HYSTERECTOMY - PAST SURGICAL HISTORY OF knee R replacement - PAST SURGICAL HISTORY OF Cyst removed from left foot FAMILY HISTORY Problem Relation Age of Onset - Brain Cancer Mother lung and brain - Breast Cancer Sister 45 - Breast Cancer Maternal Grandmother - Cancer Other mat aunts bone cancer - Heart Father SOCIAL HISTORY: Social History Tobacco Use - Smoking status: Never Smoker - Smokeless tobacco: Never Used Substance Use Topics - Alcohol use: No - Drug use: No MEDICATIONS Prior to Admission medications as of 06/01/19 1536 Medication Sig Last Dose Taking FAMOTIDINE ORAL Take 20 mg by mouth. Yes multivitamin with minerals (HAIR,SKIN AN D NAILS) tablet Take 1 tablet by mouth once daily. Yes COMPOUNDED PRESCRIPTION Hemp Gummy Bears: Take two eac h by mouth once daily. lidocaine (XYLOCAINE) 5 % ointment Apply 1 application to af fected area as needed. estradiol (ESTRACE) 0.01 % (0.1 mg/gram) vaginal cream Use 3 g vaginally once daily. Patient not taking: Reported on 03/27/2019 VITAMIN B COMPLEX ORAL Take 1 tablet by mouth once daily. acetaminophen (TYLENOL) 500 mg tablet Take 1,000 mg by mouth every 6 hours as needed for Pain. pantoprazole sodium (PANTOPRAZOLE ORAL) Take 40 mg by mouth once daily. Not Taking No medication comments found. CURRENT ALLERGIES ALLERGIES No Known Allergies REVIEW OF SYSTEMS PAIN ASSESSMENT: General: No weight loss, malaise or fevers. Neuro: No Hx of stroke or seizures Respiratory: No history of c urrent cough or dyspnea, or pneumonia in the past 6 weeks. No history of respiratory/pulmonary symptoms or probl ems Cardiovascular: No history of HTN requiring medi cation, no history of angina, CHF, [place], cardiac surgery or stents. Denies rest pain, gangre ne or revascularization/amputation for PVD. No history of cardiovascular symptoms or problems. GI: anal cancer : No history of UTI in past 6 weeks. No history of renal f ailure. Not currently on or requiring dialysis. No history of symptom s or problems. PAYROLL EXAMINER: Negative for abnormal vaginal bleeding, abnormal vagina l discharge. : N/A Endocrine: No history of diabetes. Has not taken stero ids within the past 30 days. No history of endocrinological symptoms or problems. Hematology: No history of bleeding or clotting disorder. Pt is not taking anti-coagulation or platelet medications . No history of hematological symptoms or problems. Oncology: No history of CA metastasis, chemo within 30 days, or radiotherapy within 90 days. Has not lost 10% of body wt in 6 months. No history of oncological symptoms or problems. Psych: Anxiety Musculoskeletal: +knee pain Skin: Negative for lesions, rash and itching. Anemia: No I have confirmed and edited as necessary , the PFSH and ROS obtained by others. Thania Lenz MD PHYSICAL EXAM BP 171/83 Pulse 61 Temp (Src) 98.4 (Oral) Ht 5' 2 (1.58m) Wt 190 lb 3.2 oz (86.3kg) SpO2 98% BMI 34.78 kg/(m2). General: Alert and oriented Skin: Normal color, no rash, no lesions. HEENT: EOM, pupils equal, round and reactive. Cardiovascular: Normal S1 AND S2, no rubs, murmurs or gallops. No JVD. Pulse regular. Lungs: Normal breath sounds, no wheezes or crackles. Abdomen: Soft, non-tender, no rigidity. Extremities: No deformity, no edema or tenderness, no joint swelling or clubbing. Neurological: Normal cognition and motor skills. Pulses: Carotid and radial pulses normal +2. Anorectal: Deferred Cinder Dump Crane Operator present: Yes, Dasha Power Diagnostic tests reviewed for today's visit: MRI rectum ASSESSMENT There is no known pertinent medical condition wh ich may affect joe-operative course I explained the surgical pro cedure and potential findings extensively using also anatomic charts and answered all related questions. The risks, benefits and anti cipated outcomes of the several proposed procedures, the risks and benefits of the alternatives to th e procedure and the roles and tasks of the personnel to be involved were discu ssed with the patient and the patient consents to the procedure and agrees to proceed. PLAN CONSULTS: Patient does not require consults for optimization at this t brian. Procedure: EUA anorectum, possible bx anal canal, possible s igmoidoscopy The risks, benefits and anticipated outcomes of the pr ocedure, the risks and benefits of the alternatives to the procedure and the roles and tasks of the personnel to be involved were discussed with the patient and the patient consents to the procedure and agrees to proceed. I verify that I personally obtained Cynthia Wallace's consen t. The Following Tests/Procedures Have Been Initiated: None Instructions Given to Patient: Patient given verbal and wri tten preop instructions and voices comprehension and compliance. I have seen and evaluated the patient an d discussed the case with the resident physician. I agree with the assessment and plan as documented in the resident?s note. I spent 25 minutes in the visit, with more than 50% of the total gork-je-lihy time of the visit in counseling / coordination of care. Thania Lenz MD Dept of COLORECTAL SURGERY August 08, 2019 11:25 AM Previous Version Progress Notes ([facility]): Xochitl [facility] [place] 08/02/2019 4:25 PM Signed [phone] ? Cynthia Wallace is scheduled 08/10 for EUA. She doesn't understand why she would have to come for a preop appt 08/04 with Keyla antonio. I said perhaps for you to sign consent. She is upset cause it is a [address] to get he re. She also asked if it is to sign consent why can't she do christiana t morning of procedure. Bibi Jacobs, RN, RN 08/03/2019 8:24 AM Signed Attempted to call x2 with no answer and voicemail full Will send [employer] message about why pre-operativ e appointments cannot be done day of surgery Bibi Jacobs, RN, RN 08/03/2019 4:41 PM Signed Per pt at 4:40pm she is unable to come tomorrow 08/04 SHe will do pre-ops on Tuesday 08/08 She knows to expect a schedule for these appointments Case Message sent progress on 2019-06 PROGRESS HNO ID: [id number] Normal 07-21-2019 [facility] Author: Thania Lenz [place] ([id number]) Service: ? 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 Sh e is now s/p chemoradiation (Viv protocol) treatment completed on 9. Overall doing well. Some burning with BMs and some perianal skin irritation. MRI Rectum 07/21/19 (today) Interval decrease in size of anorectal tumor, without eviden ce of residual viable tumor. No pelvic lymphadenopathy. MRI Rectum 05/05/18 LOW T4 N2 ANORECTAL TUMOR WITH INVOLVEMENT OF BOTH SPHINCTER S, AND SUSPECTED POSTERIOR VAGINAL INVASION. ADENOPATHY EXTENDS BEYOND MESORECTUM INTO LEFT INTERNAL AND RIGHT EXTERNAL ILIAC CHAINS. Current Outpatient Medications Medication Sig - pantoprazole sodium (PANTOPRAZOLE ORAL) Take 40 mg by mout h once daily. - COMPOUNDED PRESCRIPTION Hemp Gummy Bears: Take two each by mouth once daily. - lidocaine (XYLOCAINE) 5 % ointment Apply 1 application to affected area as needed. - estradiol (ESTRACE) 0.01 % (0.1 mg/gram) vaginal cream Use 3 g vaginally once daily. (Patient not taking: Reported on 03/27/2019 ) - VITAMIN B COMPLEX ORAL Take 1 tablet by mouth once daily. - acetaminophen (TYLENOL) 500 mg tablet Take 1,000 mg by papo th every 6 hours as needed for Pain. No current facility-administered medications for this visit. ALLERGIES No Known Allergies Social History Tobacco Use - Smoking status: Never Smoker - Smokeless tobacco: Never Used Substance Use Topics - Alcohol use: No - Drug use: No PAST MEDICAL HISTORY Diagnosis Date - Anal cancer (HCC) 04/21/2018 - Arthritis - GERD (gastroesophageal reflux disease) PAST SURGICAL HISTORY Procedure Laterality Date - HYSTERECTOMY - PAST SURGICAL HISTORY OF knee R replacement - PAST SURGICAL HISTORY OF Cyst removed from left foot FAMILY HISTORY Problem Relation Age of Onset - Brain Cancer Mother lung and brain - Breast Cancer Sister 45 - Breast Cancer Maternal Grandmother - Cancer Other mat aunts bone cancer - Heart Father REVIEW OF SYSTEMS Pain Assessment: Negative for pain, history of chronic pain, or current treatment for a chronic pain condition. General: No weight loss, malaise or fevers HEENT: Negative for frequent or significant headaches, No ch anges in hearing or vision, no nose bleeds or other nasal problems Neck: Negative for lumps, goiter, pain and significant neck swelling Respiratory: Negative for cough, hemoptysis, wheezing, COPD, dyspnea or shortness of breath Cardiovascular: Negative for chest pain, leg swelling, hyper tension, CHF or palpitations GI: No nausea, vomiting, or diarrhea : No history of dysuria, frequency or incontinence PAYROLL EXAMINER: Negative for abnormal vaginal bleeding, abnormal vagina l discharge Muscuolskeletal: Negative for joint pain or swelling, back p ain or muscle pain Skin: Negative for lesions, rash, and itching Psych: Negative for sleep disturbance, mood disorder and rec ent psychosocial stressors Hematology/Lymphology: Negative for prolonged bleeding, brui sing easily or swollen nodes Endocrine: Negative for cold or heat intolerance, polyuria, polydipsia and goiter Neuro: No history of headaches, syncope, paralysis, seizures or tremors I have confirmed and edited as necessary, the PFSH and ROS o btained by others. Thania Lenz MD PHYSICAL EXAM Ht 5' 2 (1.58m) Wt 192 lb (87.1kg) BMI 35.11 kg/(m2). General Appearance: Well appearing, alert, in no acute distr ess, well-hydrated, well nourished. Skin: Skin color, texture, turgor normal, no suspicious rash es or lesions Head: Normocephalic, no masses, lesions, tenderness or abnor malities Oropharynx: Lips, mucosa, and tongue normal, teeth and gums normal, oropharynx normal Neck: Supple, no adenopathy; thyroid symmetric, normal size, no bruits Lungs: Lungs clear to auscultation. No wheezing, rhonchi, ra les Heart: RRR without murmur, gallop, or rubs. No ectopy Extremities: No deformities, edema, skin discoloration, club [place] or cyanosis. Good capillary refill. Neuro: Gait normal. Reflexes normal and symmetric. Sensation grossly intact. Abdomen: Normal abdominal exam Anorectum: posterior induration a few mm above the anal verg e at rectal digital palpation, anus normal at inspection Cinder Dump Crane Operator present: Yes, Dasha Bookert Flexible sigmoidoscopy: Procedure: The patient was placed in left lateral position. After digit al exam with a lubricated finger, the scope was easily inserted to 25 cm. Findings: The preparation was good. There was a no visible tumor. Ther e was some increased vascularity which appears like radiation changes The remainder of the sigmoid, rectum and anal canal were ent irely normal. Biopsies were not taken. Assessment 63 year old female who completed Viv protocol for anal can cer Jul 2018, who shows no persistent or recurrent disease on endoscopic e valuation or MRI. On digital exam there was a posterior palpable nodulari ty in anal canal, but no mucosal changes on flex sig. Plan RECOMMENDATION Discuss in tumor board for further management Thania Lenz MD DATE: 07/21/19 TIME: 3:52 PM PROGRESS HNO ID: [id number] Normal 07-21-2019 [facility] Author: Lara (Xander) XANDER Leone Salcedo ([id number]) Service: Nursing Author Type: Registered Nurse Type: Progress Notes Filed: 07/21/2019 1:35 PM Note Text: Radiology Service Progress Note DATE OF SERVICE: July 21, 2019 TIME: 1:34 PM PATIENT WEIGHT: 185LBS PATIENT IDENTITY VERIFICATION COMPLETED USING TWO (2) STANDA RD IDENTIFIERS: Name and Date of confirmed by patient chantale bally and Name and Date of confirmed by identification band. PATIENT GENDER DATA: Female. status: : No status: NO. ALLERGIES: Reviewed and unchanged CONTRAST ALLERGY: NO. EXAM: MRI - CONTRAST TYPE: GROUP II IV SITE: Ambulatory: A peripheral IV was started in the [facility] antecubital site with a Angio cath: 22 gauge. and A Saline l ock was inserted per protocol IV SITE APPEARANCE: Clean,Dry and Intact SIGNATURE: Lara Leone RN PATIENT NAME: Cynthia Wallace DATE: July 21, 2019 TIME: 1:34 PM mri rectum wo/w ivcon on 2019-07-21 MRI RECTUM WO/W * * *Final Report* * * Normal 0 07-21-2019 [facility] IVCON DATE OF EXAM: Jul 21 2019 2:41PM [place] ([id number]) QBM [id number] - MRI RECTUM WO/W IVCON / PROCEDURE REASON: multiple diagnoses * * * * Physician Interpretation * * * * MRI OF THE PELVIS WITHOUT AND WITH CONTRAST: RECTAL CANCER POST-TREATMENT STAGING CLINICAL HISTORY: Rectal tumor histology: Poorly differentiated squamous cell carcinoma Prior treatment: [id number] Other: COMPARISON: 05/05/2018 TECHNIQUE: Magnet: Siemens Mapplasgraph mMR 3T scanner. Multiplanar MRI with multiple sequences before and after con trast. Contrast: IV: 17 ml of Dotarem : ml of Rectal: 60 ml of Other RESULT: TUMOR LOCATION: Location: Lower rectum/anal canal Distance to top of internal anal sphincter: 0 cm (involved) Distance to anal verge: 2.4 cm Relationship to peritoneal reflection: below TUMOR CHARACTERISTICS: Tumor Length: 2.9 cm, previously 5.3 cm Circumferential extent: 25% involving the right anterolatera l wall Wall invasion: There is been interval significant decrease i n size of tumor, with only residual T2 dark wall thickening remaini ng. T2 dark soft tissue still extends anteriorly beyond the muscularis t o at least abut the posterior wall of the vagina (i.e. series 6, image 35). However, there is no T2 intermediate signal, restricted diff usion, or early enhancement suggest residual viable tumor. CIRCUMFERENTIAL RESECTION MARGIN: Applicable: no EXTRAMURAL VASCULAR INVASION: None OTHER STRUCTURES/ ORGANS INVOLVED: The T2 dark thickening ag ain involves the internal anal sphincter and at least abuts the posterior wall of the vagina contrast above. There is likely still abutment of the right external anal sphincter/levator (i.E. series 6, image 33). LYMPH NODES: No pelvic lymphadenopathy. Previously seen enla rged mesorectal/superior hemorrhoidal and left internal iliac lym ph nodes are no longer identified. Previously seen right external iliac h as decreased in size in the interval and is no longer enlarged, now measu ring 1.6 x 0.6 cm (series 15, image 55), previously 2.1 x 0.8 cm. OTHER FINDINGS: There is mild wall thickening and T2 interme diate signal throughout the rectum and sigmoid, perhaps sequelae of radia tion proctocolitis. Status post hysterectomy. The study was interpreted by Dr Bell, a member of the recta l cancer multidisciplinary tumor board. IMPRESSION: Interval decrease in size of anorectal tumor, without eviden ce of residual viable tumor. No pelvic lymphadenopathy. Contact Lens Inspector: PSCB Transcribe Date/Time: Jul 21 2019 3:54P Dictated by : EDGAR BELL MD This examination was interpreted and the report reviewed and electronically signed by: EDGAR BELL MD on Jul 21 2019 4:12PM EST [id number] cnov on 2019-07-21 CNOV Office Visit (KHUSHBOO) Normal 07-21-[address] [place] [address] [facility] CYNTHIA WALLACE ([id number]) 1955 [place] Date Time Provider Department ([id number]) 07/21/19 2:30 PM THANIA LENZ During your visit today, we recorded the following informati on about you: Weight Height 87.1 kg 1.575 m Thania Lenz MD 07/22/2019 1:27 PM Signed HPI Cynthia Espinoza Ciaran is a 63 year old female here today for anal cancer initially diagnosed in Mar 2018 Clinical stage IIIC, cT4N1c, 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 She is now s/p chemoradiation (Viv protocol) treatment completed on 08/02/18. Overall doing well. Some burning with BMs and some per ianal skin irritation. MRI Rectum 07/21/19 (today) Interval decrease in size of anorectal tumor, without eviden ce of residual viable tumor. No pelvic lymphadenopathy. MRI Rectum 05/05/18 LOW T4 N2 ANORECTAL TUMOR WITH INVOLVEMENT OF BOTH SPH INCTERS, AND SUSPECTED POSTERIOR VAGINAL INVASION. ADENOPATHY EXTENDS BEYOND MESORECTUM INTO LEFT INTERNAL AND RIGHT EXTERNAL ILIAC CHAINS. Current Outpatient Medications Medication Sig - pantoprazole sodium (PANTOPRAZOLE ORAL) Take 40 mg by mout h once daily. - COMPOUNDED PRESCRIPTION Hemp Fernando Zaina rs: Take two each by mouth once daily. - lidocaine (XYLOCAINE) 5 % ointment Apply 1 applicati on to affected area as needed. - estradiol (ESTRACE) 0.01 % (0.1 mg/gram) vaginal cream Use 3 g vaginally once daily. (Patient not taking: Reported on 03/27/2019 ) - VITAMIN B COMPLEX ORAL Take 1 tablet by mouth once daily. - acetaminophen (TYLENOL) 50 0 mg tablet Take 1,000 mg by mouth every 6 hours as needed for Pain. No current facility-administered medications for this visit. ALLERGIES No Known Allergies Social History Tobacco Use - Smoking status: Never Smoker - Smokeless tobacco: Never Used Substance Use Topics - Alcohol use: No - Drug use: No PAST MEDICAL HISTORY Diagnosis Date - Anal cancer (HCC) 04/21/2018 - Arthritis - GERD (gastroesophageal reflux disease) PAST SURGICAL HISTORY Procedure Laterality Date - HYSTERECTOMY - PAST SURGICAL HISTORY OF knee R replacement - PAST SURGICAL HISTORY OF Cyst removed from left foot FAMILY HISTORY Problem Relation Age of Onset - Brain Cancer Mother lung and brain - Breast Cancer Sister 45 - Breast Cancer Maternal Grandmother - Cancer Other mat aunts bone cancer - Heart Father REVIEW OF SYSTEMS Pain Assessment: Negative for pain, history of chronic pain, or current treatment for a chronic pain condition. General: No weight loss, malaise or fevers HEENT: Negative for frequent or significant headaches, No changes in hearing or vision, no nose bleeds or other nasal problems Neck: Negative for lumps, goiter, pain and significant neck swelling Respiratory: Negative for cough, hemoptysis, wheezing, COPD, dyspnea or shortness of breath Cardiovascular: Negative for chest pain, leg swelling, hyp ertension, CHF or palpitations GI: No nausea, vomiting, or diarrhea : No history of dysuria, frequency or incontinence PAYROLL EXAMINER: Negative for abnormal vaginal bleeding, abnormal vagina l discharge Muscuolskeletal: Negative for joint pain or swelling, back pain or muscle pain Skin: Negative for lesions, rash, and itching Psych: Negative for sleep disturbance, mood disorder a nd recent psychosocial stressors Hematology/Lymphology: Negative for prolonged bleeding, brui sing easily or swollen nodes Endocrine: Negative for cold or heat intolerance, polyuria, polydipsia and goiter Neuro: No history of headaches, syncope, paralysis, seizures or tremors I have confirmed and edited as necessary , the PFSH and ROS obtained by others. Thania Lenz MD PHYSICAL EXAM Ht 5' 2 (1.58m) Wt 192 lb (87.1kg) BMI 35.11 kg/(m2). General Appearance: Well marko earing, alert, in no acute distress, well-hydrated, well nourished. Skin: Skin color, texture, turgor normal, no suspicious rash es or lesions Head: Normocephalic, no masses, lesions, tenderness or abnor malities Oropharynx: Lips, mucosa, and tongue nor mal, teeth and gums normal, oropharynx normal Neck: Supple, no adenopathy; thyroid symmetric, normal size, no bruits Lungs: Lungs clear to auscultation. No wheezing, rhonchi, ra les Heart: RRR without murmur, gallop, or rubs. No ectopy Extremities: No deformities, edema, skin discolo ration, clubbing or cyanosis. Good capillary refill. Neuro: Gait normal. Reflexes normal and symmetric. Sen sation grossly intact. Abdomen: Normal abdominal exam Anorectum: posterior indurat ion a few mm above the anal verge at rectal digital palpation, anus normal at inspection Cinder Dump Crane Operator present: Yes, Dasha Power Flexible sigmoidoscopy: Procedure: The patient was placed in left lateral position. After digit al exam with a lubricated finger, the scope was easily inserted to 25 cm. Findings: The preparation was good. There was a no visible tumor. Ther e was some increased vascularity which appears like radiation changes The remainder of the sigmoid, rectum and anal canal were ent irely normal. Biopsies were not taken. Assessment 63 year old female who completed Viv protocol for anal cancer Jul 2018, who shows no persistent or recurrent disease on endoscopic evaluation or MRI. On digital exam there was a posterior palpable nodularity in anal canal, but no mucosal changes on flex sig. Plan RECOMMENDATION Discuss in tumor board for further management Thania Lenz MD DATE: 07/21/19 TIME: 3:52 PM Referring Provider: THANIA LENZ [[id number]] Allergies As of Date: 07/21/2019 (No Known Allergies) Date Reviewed: 07/21/2019 Reviewed by: Lara (Rn) XANDER Leone - Fully Assessed Reason for Visit: Established Patient [175] Primary Visit Diagnosis:Anal cancer (HCC) [C21.0] Prescriptions as of 07/21/2019 Sig: PANTOPRAZOLE ORAL Take 40 mg by mouth once keyla* COMPOUNDED PRESCRIPTION Hemp Gummy Bears: Take two ea* LIDOCAINE 5 % TOPICAL OINTMENT Apply 1 application to affect * ESTRADIOL 0.01% (0.1 MG/GRAM)* Use 3 g vaginally once daily. 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 Author Type: Physician Type: Progress Notes Filed: 06/01/2019 4:07 PM Note Text: Radiation Oncology - Follow Up Note PATIENT NAME: Cynthia Wallace PATIENT DIAGNOSIS: Clinical stage IIIC, cT4N1c, poorly differentiate d squamous cell carcinoma of the anal canal, s/p chemoradiation treatme nt finished on 08/02/18. INTERVAL HISTORY: She is here for a routine follow-up. She i s doing well without any specific new complaints. She has occasional tene smus, once or twice a month. She denies any diarrhea or any stool incontin ence. She denies any anal pain. ALLERGIES No Known Allergies MEDICATIONS: COMPOUNDED PRESCRIPTION Hemp Gummy Bears: Take two each by m outh once daily. lidocaine (XYLOCAINE) 5 % ointment Apply 1 application to af fected area as needed. VITAMIN B COMPLEX ORAL Take 1 tablet by mouth once daily. acetaminophen (TYLENOL) 500 mg tablet Take 1,000 mg by mouth every 6 hours as needed for Pain. pantoprazole sodium (PANTOPRAZOLE ORAL) Take 40 mg by mouth once daily. estradiol (ESTRACE) 0.01 % (0.1 mg/gram) vaginal cream Use 3 g vaginally once daily. PHYSICAL EXAM: VS: BP 148/73 Pulse (!) 54 Temp 36.7 ?C (98 ?F) (Tempora l) Resp 16 Wt 86 kg (189 lb 8 oz) BMI 34.66 kg/m? KPS: 90 General Appearance: Alert and oriented. No acute distress. ASSESSMENT AND PLAN: Clinically stable. She is scheduled to have MRI rectum on 07/21/18 and then to see Dr. Lenz for considerat ion of colonoscopy. She is regularly followed with Dr. Lenz and Dr. Miner and I will see her as needed. Signed by: Charissa Hollins MD cc: Be Esquivel DO [address] [place] [address] aggie on 2019-06-01 [facility] Office Visit (RADTWS) Normal 06-01-20 [place] CYNTHIA Bardales ([id number]) 1955 [facility] Date Time Provider Department ([id number]) 06/01/19 3:30 PM CHARISSA HOLLINS During your visit today, we recorded the following informati on about you: Temperature Pulse Respiration Blood pressure 98 degrees 54/minute 16/minute 148/73 Weight 86 kg Kelsea Chopra RN, RN 06/01/2019 3:40 PM Signed Radiation Therapy - Nursing Note (Follow-up) PATIENT NAME: Cynthia Wallace PATIENT June 01, 2019 [facility] FACILITY/LOCATION: [facility] Reason for visit: Follow up. Subjective Data No c/o Additional Data Do you want to see a Car Sealer? No Nursing Assessment Fatigue: increased fatigue over baseline but not altering normal activities Appetite: good Weight Gain/Loss: No Last 6 Encounter Wt Readings: Date: Wt: 06/01/2019 86 kg (189 lb 8 oz) 05/12/2019 85.5 kg (188 lb 8 oz) 04/10/2019 84.2 kg (185 lb 9.6 oz) 03/27/2019 84.2 kg (185 lb 9.6 oz) 03/08/2019 84.4 kg (186 lb) 02/24/2019 83.9 kg (185 lb) Bowel Function: normal bowel movements Bone Pain: none Focused Assessment anus-pt reports changes in bowel pattern, denies other compl aints Was approved? pt did not receive tablet SIGNED by: XANDER Vicente MD 06/01/2019 4:07 PM Signed Radiation Oncology - Follow Up Note PATIENT NAME: Cynthia Wallace PATIENT DIAGNOSIS: Clinical stage IIIC, cT4N1c, poorly differentia willard squamous cell carcinoma of the anal canal, s/p chemoradiation treatment finished on 08/02/18. INTERVAL HISTORY: She is here for a routine follow-up. She i s doing well without any specific new com plaints. She has occasional tenesmus, once or twice a month. She denies any diar harman or any stool incontinence. She denies any anal pain. ALLERGIES No Known Allergies MEDICATIONS: COMPOUNDED PRESCRIPTION Hemp Gummy Bears: Take two eac h by mouth once daily. lidocaine (XYLOCAINE) 5 % ointment Apply 1 application to af fected area as needed. VITAMIN B COMPLEX ORAL Take 1 tablet by mouth once daily. acetaminophen (TYLENOL) 500 mg tablet Take 1,000 mg by mouth every 6 hours as needed for Pain. pantoprazole sodium (PANTOPRAZOLE ORAL) Take 40 mg by mouth once daily. estradiol (ESTRACE) 0.01 % (0.1 mg/gram) vaginal cream Use 3 g vaginally once daily. PHYSICAL EXAM: VS: BP 148/73 Pulse (!) 54 Temp 36.7 ?C (98 ?F) (Tempora l) Resp 16 Wt 86 kg (189 lb 8 oz) BMI 34.66 kg/m? KPS: 90 General Appearance: Alert and oriented. No acute distress. ASSESSMENT AND PLAN: Clinically stable. She is scheduled to have MRI rectum on 07/21/18 and then to see Dr. Lenz for consideration of colonoscopy. She is regularly followed with Dr. Lenz and Dr. Miner and I will see her as needed. Signed by: Charissa Hollins MD cc: Be Esquivel, [address] [place] [address] Referring Provider: CHARISSA HOLLINS [[id number]] Allergies As of Date: 06/01/2019 (No Known Allergies) Date Reviewed: 06/01/2019 Reviewed by: Kelsea (Rn) XANDER Chopra - Fully Assessed Reason for Visit: Recheck [92] Primary Visit Diagnosis:Anal cancer (HCC) [C21.0] Prescriptions as of 06/01/2019 Sig: COMPOUNDED PRESCRIPTION Hemp Gummy Bears: Take two ea* LIDOCAINE 5 % TOPICAL OINTMENT Apply 1 application to affect * VITAMIN B COMPLEX ORAL Take 1 tablet by mouth once d* ACETAMINOPHEN 500 MG TABLET Take 1,000 mg by mouth every * PANTOPRAZOLE ORAL Take 40 mg by mouth once keyla* ESTRADIOL 0.01% (0.1 MG/GRAM)* Use 3 g vaginally once daily. 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 Subjective Data No c/o Additional Data Do you want to see a Car Sealer? No Nursing Assessment Fatigue: increased fatigue over baseline but not altering no rmal activities Appetite: good Weight Gain/Loss: No Last 6 Encounter Wt Readings: Date: Wt: 06/01/2019 86 kg (189 lb 8 oz) 05/12/2019 85.5 kg (188 lb 8 oz) 04/10/2019 84.2 kg (185 lb 9.6 oz) 03/27/2019 84.2 kg (185 lb 9.6 oz) 03/08/2019 84.4 kg (186 lb) 02/24/2019 83.9 kg (185 lb) Bowel Function: normal bowel movements Bone Pain: none Focused Assessment anus-pt reports changes in bowel pattern, denies other compl aints Was approved? pt did not receive tablet SIGNED by: Kelsea Chopra RN Encounter Status:Closed by CHARISSA HOLLINS MD on 06/01/19 [facility] abs gr + cbc on 2019-05-12 Absol Gran Count 2.58 1.45-7.50 k/uL Normal 05-12-2019 [facility] ([id number]) Erythrocyte distribution 13.7 11.5-15.0 % Normal 05-12 [facility] width (RBC) [Ratio] [place] ([id number]) Hematocrit (Bld) [Volume 38.1 36.0-46.0 % Normal 05-12 [facility] fraction] [place] ([id number]) Hemoglobin (Bld) 12.7 11.5-15.5 g/dL Normal 05-12-2019 [facility] [Mass/Vol] [place] ([id number]) MCH (RBC) [Entitic mass] 30.3 26.0-34.0 pg Normal 05-12 [facility] ([id number]) MCHC (RBC) [Mass/Vol] 33.3 30.5-36.0 g/dL Normal 05-12-20 [facility] ([id number]) MCV (RBC) [Entitic vol] 90.9 80.0-100.0 fL Normal 05-12 [facility] ([id number]) Platelet mean volume 8.3 9.0-12.7 fL Low [facility] (Bld) [Entitic vol] [place] ([id number]) Comment: Result Comment: Test perform ed by: [facility] [place], [address] [place], [place] [address]. RBC (Bld) [#/Vol] 4.19 3.90-5.20 m/uL Normal 05-12-2019 [facility] ([id number]) WBC (Bld) [#/Vol] 3.78 3.70-11.00 k/uL Normal 05-12-2019 [facility] ([id number]) [place] Platelet Cnt 220 150-400 k/uL Normal 9 [facility] ([id number]) progress on 2019-04 PROGRESS HNO ID: [id number] Normal 05-12-2019 [facility] Author: Jules izaguirre ([id number]) Service: ? Author Type: Physician Type: Progress Notes Filed: 05/13/2019 7:35 AM Note Text: DIAGNOSIS:?Clinical Stage IIIC anal canal SCC in complete re mission ? AJCC Staging: Cancer Staging Anal cancer (HCC) Staging form: Anus, AJCC 8th Edition - Clinical stage from 05/05/2018: Stage IIIC (cT4, cN1c, cM0) le ? ? PRIOR TREATMENT: Apr 21, 2018 -- colonoscopy ? PERFORMANCE STATUS: ECOG = 1- Restricted in physical ly strenuous activity. ?Carries out light duty. ? CHIEF COMPLAINT:? Radiation olivares AND?bladder spasm from F oley catheter ? BACKGROUND AND HISTORY OF PRESENT ILLNESS: I am seeing Cynthia Wallace today in my clinic for my opinio n regarding anal cancer. She is 62 yo female who after her knee surgery in Dec 2017 s tarted having constipation due to pain meds, but continued after stopping it. Stool was not hard but difficult to pass, pencil thin, a/w significant amount of blood (continues until now). She has been taking Miralax and this is helping with the BMs now. Prior to that has been having low appetite for more than 6 months. Energy is low now for the past 1-2 month s. Has anorectal pain and worse since the colonoscopy. Currently in dependent. Biopsy was c/w squamous cell cancer. No prior history of gen ital warts or non-genital. No history of blood transfusion. ? After biopsy was seen by Delfin and was ordered CT scans and MRI of the pelvis. Later approved for a PET/CT. MRI showed extension in to the vaginal wall, now with occasional vaginal bleeding. ?she has lost 15 pounds since her diagnosis 2 months ago. ? ?current treatment: Mitomycin-C AND?5FU CIV day 1-4; day 2 02-25 with concurrent radiation therapy. ? Interim history: ?Patient?has no complaint today.. There were no evidence of residual anal cancer. She?denied diarrhea or?rectal pain, ?no rectal or vaginal bleeding. She has no difficulty with urination burni ng or hematuria. ? ?She denies nausea or vomiting. Her appetite is normal a nd her weight has increased. She saw Dr. Coats in January, and recommended a follow-up MRI scan of the rectum. All medications AND allergies updated and reviewed by me. ? REVIEW OF SYSTEMS: ? CONSTITUTIONAL: ?No fevers, chills, nightsweats, unintende d weight loss HEENT: ?Denies frequent or severe heaches, nasal congestion/ sinus symptoms, problematic allergy problems. EYES: ?No diplopia or blurry vision. CARDIOVASCULAR: ?No chest pain, dyspnea, palpitations, ortho pnea, PND, ankle edema. PULM: ?No dyspnea, unexplained cough. GI: ?No dysphagia/odynophagia, problematic reflux, constipat ion, diarrhea, changes in stool habits, hematochezia, melena. :??denied dysuria or hematuria. NEURO: ?No new balance problems, peripheral weakness/paresth esias or numbness of concern. MUSC-SKEL: ?No new joint pain, swelling, or erythema. PSY: ?No concerns regarding depression, anxiety or panic. INTEGUMENTARY: ?No new skin changes (rash, new or changing m ole, new growth) ? PHYSICAL EXAMINATION: 62-year-old lady appeared to b e in no acute distress BP 138/77 Pulse 58 Temp (Src) 98.3 (Oral) Wt 188 lb 8 oz (85.5kg) HEENT: Head is normocephalic, atraumatic. Sclerae white, con junctivae pink. PEERL. EOMs are intact. Oropharynx is benign. LYMPHATICS: There is no palpable adenopathy in the neck, sup raclavicular region, axillae, or groin. LUNGS: Lungs are clear to percussion and auscultation. HEART: Heart is normal without murmurs, gallops, or rubs. ABDOMEN: Soft and nontender without organomegaly. No masses can be palpated. RECTAL: deferred. EXTREMITIES: Are without edema. NEUROLOGIC: Exam is physiologic ? LABORATORY DATA:? Component Latest Ref Rng AND Units 05/12/2019 WBC, [place] 3.70 - 11.00 k/uL 3.78 RBC, [place] 3.90 - 5.20 m/uL 4.19 Hemoglobin, [place] 11.5 - 15.5 g/dL 12.7 Hematocrit, [place] 36.0 - 46.0 % 38.1 MCV, [place] 80.0 - 100.0 fL 90.9 MCH, [place] 26.0 - 34.0 pg 30.3 MCHC, [place] 30.5 - 36.0 g/dL 33.3 RDW, [place] 11.5 - 15.0 % 13.7 Platelet Cnt, [place] 150 - 400 k/uL 220 MPV, [place] 9.0 - 12.7 fL 8.3 (L) Absol Gran Count 1.45 - 7.50 k/uL 2.58 MRI: Pending Bilateral mammogram: Benign category 1 ? ASSESSMENT:?She is a 62-year-old female with new diagnos is of anal canal, clinical stage IIIc, squamous cell carcinoma, in complete re mission? ? 2)?radiation proctitis -? resolved ? 3) vaginal cuff granuloma ? PLAN:? 1)?follow up with Dr. Lenz? in 2019 for colonosco py and MRI of rectum 2) Repeat CBC, CMP, CEA level office visit in 6 months. 3) follow-up with PCP and PAYROLL EXAMINER regarding vaginal cuff granulo ma and irritation 4) Flu vaccine today Jules Miner MD Cc;?Dr. Be Esquivel ?Dr. Olivarez?Delfin ? cnovsp on 2019-04-28 5 CNOVSP Visit (SP) Office (HEMAWS) Normal [facility] WALLACECYNTHIA ([id number]) 1955 [facility] Time Provider Department ([id number]) 05/12/19 2:50 PM JULES MINER During your visit today, we recorded the following informati on about you: Temperature Pulse Blood pressure Weight 98.3 degrees 58/minute 138/77 85.5 kg Jules Miner MD 05/13/2019 7:35 AM Signed DIAGNOSIS:?Clinical Stage IIIC anal canal SCC in complete re mission ? AJCC Staging: Cancer Staging Anal cancer (HCC) Staging form: Anus, AJCC 8th Edition - Clinical stage from 05/05/2018: Stage IIIC (cT4, cN1c, cM0) le ? ? PRIOR TREATMENT: Apr 21, 2018 -- colonoscopy ? PERFORMANCE STATUS: ECOG = 1- Restricted in physically stren uous activity. ?Carries out light duty. ? CHIEF COMPLAINT:? Radiation olivares AND?bladder spasm from Fol ey catheter ? BACKGROUND AND HISTORY OF PRESENT ILLNESS: I am seeing Cynthia Wallace today in my clinic for my opinion regarding anal cancer. She is 62 yo female who after her knee surgery in Dec 2017 s tarted having constipation due to pain meds, but continued aft er stopping it. Stool was not hard but difficult to pass, pencil thin, a/w significant evelyn unt of blood (continues until now). She h as been taking Miralax and this is helping with the BMs now. Prior to that has been having low appetite for mo re than 6 months. Energy is low now for the past 1-2 months. Has a norectal pain and worse since the colonoscopy. Currently independent. Biopsy was c/w squamous cell cancer. No prior history of gen ital warts or non-genital. No history of blood transfusion. ? After biopsy was seen by Delfin and was ordered CT scans an d MRI of the pelvis. Later approved for a PET/CT. MRI showed extension in to the vaginal wall, now with occasional vaginal bleeding. ?she has lost 15 pounds since her diagnosis 2 months ago. ? ?current treatment: Mitomycin-C AND?5FU CIV day 1-4; day 28-31 with concurrent radiation therapy. ? Interim history: ?Patient?has no complaint today.. The re were no evidence of residual anal cancer. She?denied diarrhe a or?rectal pain,?no rectal or vaginal bleeding. She has no difficulty with urination burning or he maturia. ? ?She denies nausea or vomiting. Her appetite is normal and h er weight has increased. She saw Dr. Page brown in January, and recommended a follow-up MRI scan of the rectum. All medications AND allergies updated and reviewed by me. ? REVIEW OF SYSTEMS: ? CONSTITUTIONAL: ?No fevers, chills, nightsweats, unintended weight loss HEENT: ?Denies frequent or severe heaches, nasal congestio n/sinus symptoms, problematic allergy problems. EYES: ?No diplopia or blurry vision. CARDIOVASCULAR: ?No chest pain, dyspnea, palpitations, orthopnea, PND, ankle edema. PULM: ?No dyspnea, unexplained cough. GI: ?No dysphagia/odynophagia, problematic reflux, constipat ion, diarrhea, changes in stool habits, hematochezia, melena. :??denied dysuria or hematuria. NEURO: ?No new balance problems, peripheral weak ness/paresthesias or numbness of concern. MUSC-SKEL: ?No new joint pain, swelling, or erythema. PSY: ?No concerns regarding depression, anxiety or panic. INTEGUMENTARY: ?No new skin changes (rash, new or garcia ging mole, new growth) ? PHYSICAL EXAMINATION: 62-year-old lady appeared to be in no acute distress BP 138/77 Pulse 58 Temp (Src) 98.3 (Oral) Wt 188 lb 8 oz (85.5kg) HEENT: Head is normocephalic, atraumatic. Sclerae white, c onjunctivae pink. PEERL. EOMs are intact. Oropharynx is benign. LYMPHATICS: There is no palpable adenopathy in the neck, sup raclavicular region, axillae, or groin. LUNGS: Lungs are clear to percussion and auscultation. HEART: Heart is normal without murmurs, gallops, or rubs. ABDOMEN: Soft and nontender without organomegaly. No m asses can be palpated. RECTAL: deferred. EXTREMITIES: Are without edema. NEUROLOGIC: Exam is physiologic ? LABORATORY DATA:? Component Latest Ref Rng AND Units 05/12/2019 WBC, [place] 3.70 - 11.00 k/uL 3.78 RBC, [place] 3.90 - 5.20 m/uL 4.19 Hemoglobin, [place] 11.5 - 15.5 g/dL 12.7 Hematocrit, [place] 36.0 - 46.0 % 38.1 MCV, [place] 80.0 - 100.0 fL 90.9 MCH, [place] 26.0 - 34.0 pg 30.3 MCHC, [place] 30.5 - 36.0 g/dL 33.3 RDW, [place] 11.5 - 15.0 % 13.7 Platelet Cnt, [facility] 150 - 400 k/uL 220 MPV, [place] 9.0 - 12.7 fL 8.3 (L) Absol Gran Count 1.45 - 7.50 k/uL 2.58 MRI: Pending Bilateral mammogram: Benign category 1 ? ASSESSMENT:?She is a 62-year-old female with new diagnosis o f anal canal, clinical stage IIIc, squamous cell carcinoma, in complete re mission? ? 2)?radiation proctitis -? resolved ? 3) vaginal cuff granuloma ? PLAN:? 1)?follow up with Dr. Favio camarena? in 2019 for colonoscopy and MRI of rectum 2) Repeat CBC, CMP, CEA level office visit in 6 months. 3) follow-up with PCP and PAYROLL EXAMINER regarding vaginal cuff granuloma and irritation 4) Flu vaccine today Jules Miner MD Cc;?Dr. Be Esquivel ?Dr. Olivarez?Delfin ? 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 Follow-up and Disposition History Recorded Prescriptions as of 05/12/2019 Sig: COMPOUNDED PRESCRIPTION Hemp [place]: Take two ea* LIDOCAINE 5 % TOPICAL OINTMENT Apply 1 application to affect * ACETAMINOPHEN 500 MG TABLET Take 1,000 mg by mouth every * ESTRADIOL 0.01% (0.1 MG/GRAM)* Use 3 g vaginally once daily. 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 Author Type: Nurse Practitioner Type: Progress Notes Filed: 04/10/2019 4:53 PM Note Text: Cynthia Wallace is a 63 year old female who presents for pro blem visit Vulvar burning and irritation for 1 week(s). HPI: pt states that there has been an increase in vulvar irr itation to the area of radiation. She is not sure if it is an allergic reac tion or irritation from the liners she wear. She has tried going w/o the liner to see if it would make a difference but with no relief. PAST MEDICAL HISTORY Diagnosis Date - Anal cancer (HCC) 04/21/2018 - Arthritis - GERD (gastroesophageal reflux disease) PAST SURGICAL HISTORY Procedure Laterality Date - HYSTERECTOMY - PAST SURGICAL HISTORY OF knee R replacement - PAST SURGICAL HISTORY OF Cyst removed from left foot FAMILY HISTORY Problem Relation Age of Onset - Brain Cancer Mother lung and brain - Breast Cancer Sister 45 - Breast Cancer Maternal Grandmother - Cancer Other mat aunts bone cancer - Heart Father Social History Socioeconomic History Marital status: Spouse name: Not on file Number of children: Not on file Years of education: Not on file Highest education level: Not on file Occupational History Not on file Social Needs Financial resource strain: Not on file Food insecurity: Worry: Not on file Inability: Not on file Transportation needs: Medical: Not on file Non-medical: Not on file Tobacco Use Smoking status: Never Smoker Smokeless tobacco: Never Used Substance and Sexual Activity Alcohol use: No Drug use: No Sexual activity: Not on file Lifestyle Physical activity: Days per week: Not on file Minutes per session: Not on file Stress: Not on file Relationships Social connections: Talks on phone: Not on file Gets together: Not on file Attends buddhist service: Not on file Active member of club or organization: Not on file Attends meetings of clubs or organizations: Not on file Relationship status: Not on file Intimate partner violence: Fear of current or ex partner: Not on file Emotionally abused: Not on file Physically abused: Not on file Forced sexual activity: Not on file Other Topics Concerns: Not on file Social History Narrative Not on file Current Outpatient Medications: estradiol (ESTRACE) 0.01 % (0.1 mg/gram) vaginal cream Use 3 g vaginally once daily. (Patient not taking: Reported on 03/27/2019 ) VITAMIN B COMPLEX ORAL Take 1 tablet by mouth once daily. acetaminophen (TYLENOL) 500 mg tablet Take 1,000 mg by mouth every 6 hours as needed for Pain. pantoprazole sodium (PANTOPRAZOLE ORAL) Take 40 mg by mouth once daily. No current facility-administered medications for this visit. Allergies As of Date: 04/10/2019 (No Known Allergies) Fully Assessed 04/10/2019 REVIEW OF SYSTEMS Abdomen: No bloating, early satiety, indigestion, or increas ed flatulence. No abdominal pain, nausea, vomiting, diarrhea, or constipati on. Bladder: No dysuria, gross hematuria, urinary frequency, uri nary urgency, or incontinence. Expanded ROS: N/A Allergies and current medication updated:Yes EXAM: Wt 185 lb 9.6 oz (84.2kg) GENERAL: pleasant, female in no apparent distress HEENT: Normocephalic, atraumatic, mucus membranes moist and no lesions CHEST: Normal inspiratory effort PELVIC: external genitalia normal, normal Bartholin's glands , urethra, [place]'s glands, physiologic discharge present, normal appear ing perineal body and perianal region, red rash slightly raised to the ri ght labial area and down to the inner thigh tender to touch NEURO: alert and oriented x3,exam grossly non-focal ASSESSMENT/PLAN: 1. Vulvar irritation - ICD9: 624.8, ICD10: N90.89 Lotrisone BID x 7 day Lidocaine PRN for pain Follow up PRN Denise Dougherty APRN.CNP cnov on 2019-04-10 CNOV Office Visit (WOOB) Normal 04-10-2019 [facility] CYNTHIA WALLACE ([id number]) 1955 [facility] Date Time Provider Department ([id number]) 04/10/19 2:15 PM DENISE DOUGHERTY (ISHA) WOOB During your visit today, we recorded the following informati on about you: Blood pressure Weight 110/70 84.2 kg Denise Dougherty APRN.CNP 04/10/2019 4:53 PM Signed Cynthia Espinoza Wallace is a 63 year old female who pres ents for problem visit Vulvar burning and irritation for 1 week(s). HPI: pt states that there rebolledo s been an increase in vulvar irritation to the area of radiation. She is not sure if it is a n allergic reaction or irritation from the liners she wear. She has tried going w/o the liner to see if it would make a difference but with no relief. PAST MEDICAL HISTORY Diagnosis Date - Anal cancer (HCC) 04/21/2018 - Arthritis - GERD (gastroesophageal reflux disease) PAST SURGICAL HISTORY Procedure Laterality Date - HYSTERECTOMY - PAST SURGICAL HISTORY OF knee R replacement - PAST SURGICAL HISTORY OF Cyst removed from left foot FAMILY HISTORY Problem Relation Age of Onset - Brain Cancer Mother lung and brain - Breast Cancer Sister 45 - Breast Cancer Maternal Grandmother - Cancer Other mat aunts bone cancer - Heart Father Social History Socioeconomic History Marital status: Spouse name: Not on file Number of children: Not on file Years of education: Not on file Highest education level: Not on file Occupational History Not on file Social Needs Financial resource strain: Not on file Food insecurity: Worry: Not on file Inability: Not on file Transportation needs: Medical: Not on file Non-medical: Not on file Tobacco Use Smoking status: Never Smoker Smokeless tobacco: Never Used Substance and Sexual Activity Alcohol use: No Drug use: No Sexual activity: Not on file Lifestyle Physical activity: Days per week: Not on file Minutes per session: Not on file Stress: Not on file Relationships Social connections: Talks on phone: Not on file Gets together: Not on file Attends buddhist service: Not on file Active member of club or organization: Not on file Attends meetings of clubs or organizations: Not on file Relationship status: Not on file Intimate partner violence: Fear of current or ex partner: Not on file Emotionally abused: Not on file Physically abused: Not on file Forced sexual activity: Not on file Other Topics Concerns: Not on file Social History Narrative Not on file Current Outpatient Medications: estradiol (ESTRACE) 0.01 % (0.1 mg/gram) vaginal cream Use 3 g vaginally once daily. (Patient not taking: Reported on 03/27/2019 ) VITAMIN B COMPLEX ORAL Take 1 tablet by mouth once daily. acetaminophen (TYLENOL) 500 mg tablet Take 1,000 mg by mouth every 6 hours as needed for Pain. pantoprazole sodium (PANTOPRAZOLE ORAL) Take 40 mg by mouth once daily. No current facility-administered medications for this visit. Allergies As of Date: 04/10/2019 (No Known Allergies) Fully Assessed 04/10/2019 REVIEW OF SYSTEMS Abdomen: No bloating, early satiety, indigestion , or increased flatulence. No abdominal pain, nausea, vomiting, diarrhea, or constipation. Bladder: No dysuria, gross hematuria, urinary frequenc y, urinary urgency, or incontinence. Expanded ROS: N/A Allergies and current medication updated:Yes EXAM: Wt 185 lb 9.6 oz (84.2kg) GENERAL: pleasant, female in no apparent distress HEENT: Normocephalic, atraumatic, mucus membranes moist and no lesions CHEST: Normal inspiratory effort PELVIC: external genitalia normal, pema l Bartholin's glands, urethra, [place]'s glands, physiologic discharge present, normal appearing joe maira body and perianal region, red rash slightly raise d to the right labial area and down to the inner thigh tender to touch NEURO: alert and oriented x3,exam grossly non-focal ASSESSMENT/PLAN: 1. Vulvar irritation - ICD9: 624.8, ICD10: N90.89 Lotrisone BID x 7 day Lidocaine PRN for pain Follow up PRN Denise Dougherty APRN.HYPERION DEVELOPER Referring Provider: DENISE [place] (HYPERION DEVELOPER) [[id number]] Allergies As of Date: 04/10/2019 (No Known Allergies) Date Reviewed: 04/10/2019 Reviewed by: Melita Latham LPN - Fully Assessed Reason for Visit: vaginal burning [Other] Primary Visit Diagnosis:Vulvar irritation [N90.89] Order(s):clotrimazole-betamethasone (LOTRISONE) creamApply 1 application to affected area twice daily for 7 days.Disp: 15 gRfl: 0 lidocaine (XYLOCAINE) 5 % ointmentApply 1 application to aff ected area as needed.Disp: 50 gRfl: 0 Prescriptions as of 04/10/2019 Sig: CLOTRIMAZOLE-BETAMETHASONE 1 * Apply 1 application to affect * LIDOCAINE 5 % TOPICAL OINTMENT Apply 1 application to affect * ESTRADIOL 0.01% (0.1 MG/GRAM)* Use 3 g vaginally once daily. Patient not taking: Reported on 03/27/2019 VITAMIN B COMPLEX ORAL Take 1 tablet by mouth once d* ACETAMINOPHEN 500 MG TABLET Take 1,000 mg by mouth every * PANTOPRAZOLE ORAL Take 40 mg by mouth once keyla* Problem List As Of Date 04/10/2019 Noted Resolved Anal cancer (HCC) [C21.0] INVALID FOR* Prescriptions ordered this encounter Disp Refills Start End CLOTRIMAZOLE-BETAMETHASONE 1 %-0.05 * 15 g 0 04/10/201903/29 Route: TOPICAL Sig: Apply 1 application to affected area twice daily for 7 days. LIDOCAINE 5 % TOPICAL OINTMENT 50 g 0 04/10/2019 Route: TOPICAL Sig: Apply 1 application to affected area as needed. Letter Text Encounter Status:Closed by DENISE DOUGHERTY on 04/10/19 Encounters Date Type Reason Provider Location 03-25-2020 - Subsequent hospital Malignant tumor of Mri 7 Radio Mita n Q MRI Q 03-25-2020 visit by physician anus (I-Stat/1.5t/3t) Comment: Malignant neoplasm of anus ( HCC) [C21.0] 01-04-2020 - 01-04-2020 Subsequent hospital visit by [facility] physician 04-01-2020 - 04-01-2020 Telephone encounter Jules Miner Hematology/Oncology Comment: Appointment (Follow-up) 02-16-2020 - 02-16-2020 Telephone encounter Jules Olivarez Hematology/Oncology Delfin Lenz Comment: Opened In Error Question Procedures Procedure Name Date Provider Location Mri pelvis w[facility] & [facility] ([id number][facility] w/contrast material Antibody screen 08-08-2019 [facility] ([id number] ) Comment: Performed By: #### [id number] ## ##[facility] [id number] [place], [place] [id number] [phone] Plan of Treatment Plan Description Date Location DIABETES SCREEN DIABETES SCREEN 11-01-2022 - [facility] 11-01-2022 ([id number]) INFLUENZA (#1) INFLUENZA (#1) 2020 - [facility] 02-27-2020 ([id number]) ADVANCE DIRECTIVE ADVANCE DIRECTIVE 2018 - [facility] inic DISCUSSION DISCUSSION 2018 ([id number]) BONE DENSITY BONE DENSITY 2018 - [facility] 2018 ([id number]) PNEUMOVAX AGE 65 AND PNEUMOVAX AGE 65 AND 2018 - [facility] OVER WITH 5YR LOOKBACK OVER WITH 5YR LOOKBACK 2018 ([id number]) (#1) (#1) SHINGRIX VACCINE (1 of SHINGRIX VACCINE (1 of 2003 - [facility] 2) 2) 2003 ([id number]) COLORECTAL CANCER COLORECTAL CANCER 2003 - [facility] inic SCREENING,SEE MODIFIER SCREENING,SEE MODIFIER 2003 ([id number] [id number]) LIPID SCREEN LIPID SCREEN 1998 - [facility] 1998 ([id number]) MAMMOGRAM MAMMOGRAM 1993 - [facility] 1993 ([id number]) DTAP,TDAP,TD (1 - Tdap) DTAP,TDAP,TD (1 - Tdap) 1972 - [facility] 1972 ([id number]) no information [facility] ([id number]) Immunizations Vaccine Notes Status Date Location Influenza Seasonal - influenza, high (completed) 05-12-2019 - [facility] High Dose - Age 65+ dose seasonal, 05-12-2019 (84926 ) preservative-free Payers Payer Name Policy Number Location MEDICARE [id number] [facility] (44 195) [employer] [id number] [facility] (44 195) The following information is from the original human readable contentNo Payer Records Found Social History Type Social History Date Location Description Tobacco smoking status Never smoker 01-04-2020 - [facility] NHIS 02-06-2020 (40162) Tobacco use and Never used 01-04-2020 [facility] exposure 02-06-2020 (66536) Alcohol intake Current non-drinker of 01-04-2020 [facility] alcohol (finding) 02-06-2020 (42980) Sex Assigned At Not on file [facility] ([id number]) Exposure to SARS-CoV-2 Not sure [facility] (event) ([id number]) The following information is from the original human readable contentNo Social History Records Found Advance Directives No Advanced Directives Records Found Documents on File Type Date Recorded Patient Chemical Dependency Attendant Explanati on Advance Directive(s) 07/31/2019 4:22 PM Advance Directive(s) 08/08/2019 1:14 PM History of Present Illness Jose Hickman ()[place] - 03/25/2020 11:50 AM EDT Radiology Service Progress Note PATIENT NAME: Cynthia Wallace DATE OF SERVICE: March 25, 2020 TIME: 2:03 PM PATIENT IDENTITY VERIFICATION COMPLETED USING TWO (2) IDENTIFIERS: Name and Date of confirmed by patient verbally and Name and Date of confirmed by identification band. FALL SCREENING: Has the patient had 2 falls in the last year or 1 fall with injury or currently using an Ambulatory Assistive Device (Walker, Cane, Wheelchair, Crutches, etc.)? No PATIENT GENDER DATA: Female. status: : No status: N/A PATIENT RELEVANT IMPLANT DATA REVIEWED: Yes RADIOLOGY DEPARTMENT: MR; Exam(s) Completed: Body: Rectal PERIPHERAL IV DATA: Site assessment: Clean,Dry and Intact, Site disposition Discontinued SIGNED BY: RT Jose Carlos March 25, 2020 2:03 PM Andrea Caldera)[place] - 03/25/2020 11:50 AM EDT Radiology Service Progress Note DATE OF SERVICE: March 25, 2020 TIME: 12:40 PM PATIENT WEIGHT: 202LBS PATIENT IDENTITY VERIFICATION COMPLETED USING TWO (2) STANDARD IDENTIFIERS: Name and Date of confirmed by patient verbally. FALL SCREENING: Has the patient had 2 falls in the last year or 1 fall with injury or currently using an Ambulatory Assistive Device (Walker, Cane, Wheelchair, Crutches, etc.)? No PATIENT GENDER DATA: Female. status: : No status: NO. ALLERGIES: Reviewed and unchanged CONTRAST ALLERGY: No EXAM: MRI - CONTRAST TYPE: GROUP II IV SITE: Ambulatory: A peripheral IV was started in the Right antecubital site with a Angio cath: 22gauge. 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 This clinical summary was aggregated from multiple sources. Caution should be exercised in using it in the provision of clinical care. This summary normalizes information from multiple sources, and as a consequence, information in this document may materially changethe coding, format and clinical context of patient data. In addition, data may be omittedin some cases. CLINICAL DECISIONS SHOULD BE BASED ON THE PRIMARY CLINICAL RECORDS. [email or web address] [facility] provides no warranty or guarantee of the accuracy or completeness of information in this document. UNRECOGNIZED CONTENT PROVIDED BELOW FOR UNRECOGNIZED SECTION Source Comments In the event this information is protected by the Federal Confidentiality of Alcohol and Drug Abuse Patient Records regulations: The Federal rules restrict any use of the information to criminally investigate or prosecute any alcohol or drug abuse patient.[facility] event this information is protected by the Federal Confidentiality of Alcohol and Drug Abuse Patient Records regulations: The Federal rules restrict any use of the information to criminally investigate or prosecute any alcohol or drug abuse patient.[facility] the event this information is protected by the Federal Confidentiality of Alcohol and Drug Abuse Patient Records regulations: The Federal rules restrict any use of the information to criminally investigate or prosecute any alcohol or drug abuse patient.[facility] the event this information is protected by the Federal Confidentiality of Alcohol and Drug Abuse Patient Records regulations: The Federal rules restrict any use of the information to criminally investigate or prosecute any alcohol or drug abuse patient.[facility] the event this information is protected by the Federal Confidentiality of Alcohol and Drug Abuse Patient Records regulations: The Federal rules restrict any use of the information to criminally investigate or prosecute any alcohol or drug abuse patient.[facility] UNRECOGNIZED CONTENT PROVIDED BELOW FOR UNRECOGNIZED SECTION Reason for Visit Reason Onset Date Comments Opened In Error 02/16/2020 Reason Comments Radiology MRI Reason Onset Date Comments Question 02/16/2020 Reason Comments Appointment Follow-up UNRECOGNIZED CONTENT PROVIDED BELOW FOR UNRECOGNIZED SECTION Miscellaneous Notes Telephone Encounter - Vale Driscoll - 02/20/2020 2:31 PM EDTSpoke with patient and scheduled at [facility]. Vale Segovia elephone Encounter - Vale Driscoll - 02/16/2020 3:04 PM EDTPatient is calling in to determine which type of MRI is being ordered (with or without rectal probe)as she is trying to find a location closer to [place] to have the [facility]. [facility] Please advise. Vale Segovia documented in this encounterTelephone Encounter - Holli Plascencia LPN - 04/01/2020 9:06 AM EDTLeft message for patient confirming all appointments. Patient to contact office for questions. Holli Plascencia LPN elephone Encounter - Jules Miner - 04/01/2020 8:53 AM EDTPlease confirm her scheduled CT scan of chest abdomen pelvis and follow-up with me later this month. Jules Miner MD documented in this encounter UNRECOGNIZED CONTENT PROVIDED BELOW FOR UNRECOGNIZED SECTION INFORMATION SOURCE DATE CREATED AUTHOR AUTHOR'S ORGANIZATIO N 04/01/2020 [facility] Ranjith ramirez
--- OUTSIDE RECORDS SUMMARY | 2020-04-09 14:57 | XMS RPT_ITS | CCD ---
:1955 External Reference #:[id number] Author Organization [facility] Care Team Providers Name Role Phone Precious Stewart Unavailable Michelle Esquivel Primary Care Provider Sreekanth Unavailable Medications Medication Name Sig Date Prescriber Location Acetaminophen acetaminophen (TYLENOL) 500 [facility]cf Provider [facility] mg tablet Take 1,000 mg by ( 72645) mouth every 6 hours as needed for Pain. 0 Active Comment: Take 1,000 mg by mouth every 6 hours as needed for Pain. Apple Cider Vinegar APPLE CIDER VINEGAR ORAL [facility] (93272) Take by mouth. 0 Active APPLE CIDER VINEGAR ORAL Take by mouth. 0 [facility] (05330) Active APPLE CIDER VINEGAR ORAL Take by mouth. 0 [facility] (20744) Active APPLE CIDER VINEGAR ORAL Take by mouth. 0 [facility] (66704) Active APPLE CIDER VINEGAR ORAL Take by mouth. 0 [facility] (42352) Active Comment: Take by mouth. COMPOUNDED PRESCRIPTION COMPOUNDED PRESCRIPTION [facility] Hemp Gummy Bears: Take (4419 5) two each by mouth once daily. 0 Active COMPOUNDED PRESCRIPTION Hemp Gummy Bears: [facility] (50402) Take two each by mouth once daily. 0 Active COMPOUNDED PRESCRIPTION Hemp Gummy Bears: C[facility] (72545) Take two each by mouth once daily. 0 Active COMPOUNDED PRESCRIPTION Hemp Gummy Bears: [facility] (83530) Take two each by mouth once daily. 0 Active COMPOUNDED PRESCRIPTION Hemp Gummy Bears: [facility] (00518) Take two each by mouth once daily. 0 Active Comment: Hemp Gummy Bears: Take two e ach by mouth once daily. Estradiol estradiol (ESTRACE) 02-21-2019 Denise Mcclure) [facility] 0.01 % (0.1 mg/gram) (85009) vaginal cream Use 3 g vaginally once daily. 42.5 g 1 02/21/2019 Active Comment: Use 3 g vaginally once daily . Famotidine FAMOTIDINE ORAL Take 20 mg by [facility] (07706) mouth. 0 Active Comment: Take 20 mg by mouth. Lidocaine lidocaine (XYLOCAINE) 5 04-10-2019 Denise Mcclure) [facility] % ointment Apply 1 (37503) application to affected area as needed. 50 g 0 04/10/2019 Active Comment: Apply 1 application to affec willard area as needed. multivitamin with multivitamin with Ccf Provider [facility] minerals (HAIR,SKIN AND minerals (HAIR,SKIN AND (03437) NAILS) tablet NAILS) tablet Take 1 tablet by mouth once daily. 0 Active multivitamin with minerals (HAIR,SKIN AND [facility] (42169) NAILS) tablet Take 1 tablet by mouth once daily. 0 Active multivitamin with minerals (HAIR,SKIN AND [facility] (18141) NAILS) tablet Take 1 tablet by mouth once daily. 0 Active multivitamin with minerals (HAIR,SKIN AND [facility] (94249) NAILS) tablet Take 1 tablet by mouth once daily. 0 Active multivitamin with minerals (HAIR,SKIN AND [facility] (22148) NAILS) tablet Take 1 tablet by mouth once daily. 0 Active Comment: Take 1 tablet by mouth once daily. pantoprazole pantoprazole sodium [facility] (46259) (PANTOPRAZOLE ORAL) Take 40 mg by mouth once daily. 0 Active Comment: Take 40 mg by mouth once dina ly. VITAMIN B COMPLEX ORAL VITAMIN B COMPLEX ORAL [facility] (26639) Take 1 tablet by mouth once daily. 0 Active VITAMIN B COMPLEX ORAL Take 1 tablet by mouth [facility]c [facility] (37873) once daily. 0 Active VITAMIN B COMPLEX ORAL Take 1 tablet by mouth [facility] (95962) once daily. 0 Active VITAMIN B COMPLEX ORAL Take 1 tablet by mouth [facility] (85494) once daily. 0 Active VITAMIN B COMPLEX ORAL Take 1 tablet by mouth [facility] (09429) once daily. 0 Active Comment: Take 1 tablet by mouth once daily. Problems Category Problem Name Status Date Location Cancer of rectum and Malignant tumor of Active 04-29-2018 - [facility] anus anus (44625) Cancer; other and Malignant tumor of Active 05-12-2019 - [facility] unspecified primary pelvis (49907) Results Result Name Value Range Unit Interpretation Flag Date [facility] CNPN Telephone (ALEXA) Normal 04-01-2020 [facility] CYNTHIA WALLACE ([id number]) 1955 F [facility] Time Provider Department (45498) 04/01/20 JULES MINER During your visit today, [...] 04/01/20 progress on 2020-03 PROGRESS HNO ID: [id number] Normal 03-28-2020 [facility] Author: Thania Lenz [place] ([id number]) Service: ? Author Type: Physician Type: Progress Notes Filed: 03/29/2020 6:36 PM Note Text: Anal Cancer Tumor Board Follow- up Presentation Date of conference: 03/29/2020. 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 MRI performed at: [facility]. Relation to peritoneal reflection: Below. Tumor [...] Date Value 11/02/2019 1.1 Pre-treatment clinical stage: [id number] Tumor board discussion and recommendation: CT scans [...] final recommendations will be made by the [facility] care team and the patient after discussing the benefits, ris ks and alternatives to the various treatment options. progress on 2020-02 PROGRESS HNO ID: [id number] Normal 03-25-2020 [facility] Author: Clayton Branch (Rt) [place] ([id number]) Service: Radiology Author Type: Emergency Man Type: Progress Notes Filed: 03/25/2020 2:04 PM [...] 25, 2020 2:03 PM PROGRESS HNO ID: [id number] Normal 03-25-2020 [facility] Author: Andrea Caldera RN [place] ([id number]) Service: Radiology Author Type: Registered Nurse Type: [...] A peripheral IV was started in the [facility] antecubital site with a Angio cath: 22 gauge. IV SITE APPEARANCE: Clean,Dry and Intact SIGNATURE: Andrea Caldera RN PATIENT NAME: Cynthia Wallace DATE: March 25, 2020 TIME: 12:40 PM mri rectum wo/w ivcon on 2020-03-25 MRI RECTUM WO/W * * *Final Report* * * Normal 0 03-25-2020 [facility] IVCON DATE OF EXAM: Mar 25 2020 2:10PM [place] ([id number]) QBM 0754 - MRI RECTUM WO/W IVCON [...] axial oblique STIR: axial T1 in and ozr-na-ynhgj: axial HASTE: coronal large field of view [...] OF RESIDUAL VIABLE TUMOR. NO PELVIC LYMPHADENOPATHY. Senior Lead Software Engineer: PSCB Transcribe Date/Time: Mar 25 2020 2:23P Dictated by : NICHOLE LINDSAY MD This examination was interpreted and the report reviewed and electronically signed by: JOSE BOLAÑOS MD on Mar 25 2020 5:07PM EST [id number] No panel information on 2020-03-25 [facility] ([id number]) cnpn [facility] Normal 02-16-2020 [place] CYNTHIA Bardales ([id number]) 1955 F [place] Date Time Provider Department (16807) 02/16/20 [facility]ANIA LENZ [facility] During your visit today, we recorded [...] Signed Spoke with patient and scheduled at [facility]. [place] Allergies As of Date: 02/16/2020 (No Known Allergies) Date Reviewed: 01/04/2020 Reviewed by: Miriam Guardado - Fully Assessed Reason for Visit: Question [2177] Prescriptions as of 02/16/2020 Sig: APPLE CIDER [...] 03/28/20 progress on 2020-01 PROGRESS HNO ID: [id number] Normal 02-06-2020 [facility] Author: Thania Lenz [place] ([id number]) Service: ? Author Type: Physician Type: Progress [...] Underwent biopsy of vulvar lesion recently with BANK PRESIDENT, no e/o carcinoma. Imaging Results MRI Pelvis: [...] No history of dysuria, frequency or incontinence BANK PRESIDENT: wound from bx MUSCULOSKELETAL: Negative for joint [...] edema Neurological: Normal cognition and motor skills. Cocoa Bean Roaster Helper present: Yes, Lily Zhao Flexible Sigmoidoscopy/Proctoscopy Findings: [...] our contact information if she has any [facility] questions or concerns. I have seen and evaluated the patient and discussed the case with the resident physician. I agree with the assessment and plan as documented in the resident?s note. I spent 40 minutes in the visit, with more than 50% of the t otal qiui-cs-bpri time of the visit in counseling / coordination of care. Thania Lenz MD Colorectal Surgery cnov on 2020-02-06 CNOV Office Visit (KHUSHBOO) Normal 02-06-20 [facility] CYNTHIA WALLACE ([id number]) 1955 F [place] Date Time Provider Department (73369) 02/06/20 11:30 AM THANIA LENZ During your [...] Underwent biopsy of vulvar lesion recently with BANK PRESIDENT, no e/o carcinoma. Imaging Results MRI Pelvis: [...] No history of dysuria, frequency or incontinence BANK PRESIDENT: wound from bx MUSCULOSKELETAL: Negative for joint [...] edema Neurological: Normal cognition and motor skills. Cocoa Bean Roaster Helper present: Yes, Lily Zhao Flexible Sigmoidoscopy/Proctoscopy Findings: [...] with more than 50% of the total itqn-hn-ipwp time of the visit in counseling / coordination of care. Thania Lenz MD Colorectal Surgery Referring Provider: THANIA LENZ [[id number]] Allergies As of Date: 02/06/2020 (No Known Allergies) Date Reviewed: 01/04/2020 Reviewed by: Miriam Guardado - Fully Assessed Reason for Visit: Established Patient [175] Visit Diagnosis:Malignant neoplasm of anus (HCC) [C21.0] Order(s):MRI RECTUM WO/W IVCON [0765522] Order #: [id number] FUTURE iv contrast (will be provided with [...] on 2020-01-08 CNPN Telephone (OBGYWM) Normal 01-08-[address] [place] [facility] CYNTHIA WALLACE ([id number]) 1955 [facility] Time Provider Department (02158) 01/08/20 DENISE DOUGHERTY) OBGYWM During your visit today, we recorded the following informati on about you: Denise Dougherty APRN.ISHA 01/08/2020 3:32 PM Signed Spoke with pt regarding biopsy results. Informed her of referral to wound care at [facility]. Patient agrees with plan. Sunil Dougherty APRN.CNP [...] pathology on 2020-01-04 SURGICAL Specimen originated from [facility] Normal 01-04-2020 [place] [facility] Specimen #: [id number] Clinic Submitting Physician: DENISE DOUGHERTY [place] ([id number]) FINAL DIAGNOSIS A. Skin, right and left [...] in one cassette. Gross examination performed at [facility], [address] [place] [address] 01/05/2020 1:05:53 AM Date of Report: 01/08/2020 Date of Procedure: 01/04/2020 Date of Receipt: 01/04/2020 Submitted by: DENISE DOUGHERTY Location: [facility] Diagnostic interpretation performed at [place] [address]. CLIA Number: [id number] progress on 2019-12 PROGRESS HNO ID: [id number] Normal 01-04-2020 [facility] Author: Denise Salcedo ([id number]) Service: ? Author Type: Nurse Practitioner Type: [...] genitalia normal, normal Bartholin's glands , urethra, Linganore's glands, diffused bright red rash like skin [...] 2020-01-04 CNOV Office Visit (OBGYWM) Normal 01-04-20 [place] CYNTHIA Bardales ([id number]) 1955 [facility] Date Time Provider Department (26777) 01/04/20 9:15 AM DENISE DOUGHERTY (ISHA) OBGYWM [...] genitalia normal, pema l Bartholin's glands, urethra, Linganore's glands, diffused bright red rash like sk [...] PATIENT INSTRUCTIONS Many conditions may cause your microfilm operator to suggest a vul justus biopsy including vulvar itching unresponsive to therapy, ulcerated lesions, pigmented lesions, and tumors. The biopsy result w ill assist your microfilm operator to devise a treatment plan suitable to [...] Primary Visit Diagnosis:Vulvar irritation [N90.89] Order(s):SURGICAL PATHOLOGY [[id number]] Order #: [id number] Prescriptions as of 01/04/2020 Sig: APPLE CIDER [...] PATIENT INSTRUCTIONS Many conditions may cause your microfilm operator to suggest a vul justus biopsy including vulvar itching unresponsive to therapy, ulcerated lesions, pigmented lesions, and tumors. The biopsy result will assist your microfilm operator to devise a treatment plan suitable to [...] on 2019-11-14 BRANDY Telephone (ALEXA) Normal 11-14-[address] [place] [facility] CYNTHIA WALLACE ([id number]) 1955 [facility] Date Time Provider Department (28129) 11/14/19 JULES MINER During your visit today, [...] does not i mprove. MD Pretty Lopes, [employer], [employer] 11/14/2019 2:32 PM Signed Pt. Notified to [...] 11/14/19 progress on 2019-10 PROGRESS HNO ID: [id number] Normal 11-03-2019 [facility] Author: Jules izaguirre ([id number]) Service: ? Author Type: Physician Type: Progress [...] Lymph 1.00 - 4.00 k/uL 0.69 (L) Aurora% % 8.9 Abs Aurora <0.87 k/uL 0.41 Eosin% % 1.3 Abs [...] Albumin [Mass/Vol] 4.3 3.9-4.9 g/dL Normal 11-02-2019 [facility] (36263) ALP [Catalytic 84 34-123 U/L Normal 11-02-2019 [facility] activity/Vol] [facility] and (70680) ALT [Catalytic 14 7-38 U/L Normal 11-02-2019 [facility] activity/Vol] [facility] and (51092) Anion gap 10 9-18 mmol/L Normal 11-02-2019 [facility] [Moles/Vol] [facility] (59955) AST [Catalytic 16 13-35 U/L Normal 11-02-2019 [facility] activity/Vol] [facility] and (30529) Bilirubin [Mass/Vol] 0.2 0.2-1.3 mg/dL Normal 0 [facility] (88474) Calcium [Mass/Vol] 9.0 8.5-10.2 mg/dL Normal 11-02-2019 [facility] (30622) Chloride [Moles/Vol] 106 97-105 mmol/L High 0 [facility] (80303) CO2 [Moles/Vol] 26 22-30 mmol/L Normal 11-02-2019 [facility] (44804) Creatinine 0.81 0.58-0.96 mg/dL Normal 11-02-2019 [facility] [Mass/Vol] [place] (05322) eGFR- Amer. >60 Normal 11-02-2019 [facility] (79027) GFR/1.73 sq M >60 mL/min/{1.73_m Normal 11-02-2019 [facility] predicted among 2} [facility] (09886) non-blacks MDRD (S/P/Bld) [Vol rate/Area] Comment: Result [...] Glucose [Mass/Vol] 84 74-99 mg/dL Normal 11-02-2019 [facility] (69036) Comment: Result Comment: The [place] Diabetes Association (ADA) provides guidance for cutoff [...] for diagnosis of diabetes. Reference: Standards of [facility] Care in Diabetes 2016, [place] Diabetes Association. Diabetes Care. 2016.39(Suppl 1). Potassium [Moles/Vol] 4.1 3.7-5.1 mmol/L Normal 11-02-19 20 [facility] (87939) Protein [Mass/Vol] 6.5 6.3-8.0 g/dL Normal 11-02-2019 [facility] (20916) Sodium [Moles/Vol] 142 136-144 mmol/L Normal 11-02-2019 [facility] (84108) Urea nitrogen [Mass/Vol] 16 7-21 mg/dL Normal 11-01 [facility] (33312) cea on 2019-11-02 CEA 1.1 0.0-2.9 ng/mL Normal 11-02-2019 [facility] (12898) Comment: Result Comment: Test analyze d by the Aminta DxI method. Performed By: #### CEA ####C [facility] [place], [place] [id number]- [phone] cbc and differential on 2019-11-02 Abs Baso <0.03 <0.11 Normal 11-02-2019 [facility] (67974) Abs Aurora 0.41 <0.87 k/uL Normal 11-02-2019 [facility] (91313) Abs Neut 3.44 1.45-7.50 k/uL Normal 11-02-2019 [facility] (87040) Absolute nRBC <0.01 <0.01 Normal 11-02-2019 [facility] (25969) Basophils/100 WBC 0.4 % Normal 11-02-2019 [facility] (Bld) [place] (31712) DTYPE Auto Diff Normal 11-02-2019 [facility] (92405) Eosinophils (Bld) 0.06 <0.46 k/uL Normal 11-02-2019 [facility] [#/Vol] [place] (91293) Eosinophils/100 WBC 1.3 % Normal 11-02-2019 [facility] (Bld) [place] (11182) Erythrocyte 12.8 11.5-15.0 % Normal 11-02-2019 [facility] distribution width [facility] (78979) (RBC) [Ratio] Hematocrit (Bld) 42.0 36.0-46.0 % Normal 11-02-2019 [facility] [Volume fraction] [facility] (30539) Hemoglobin (Bld) 13.6 11.5-15.5 g/dL Normal 11-02-2019 [facility] [Mass/Vol] [place] (94665) Lymphocytes (Bld) 0.69 1.00-4.00 k/uL Low 11-02-2019 [facility] [#/Vol] [place] (94849) Lymphocytes/100 WBC 14.9 % Normal 11-02-2019 [facility] (Bld) [place] (82933) MCH (RBC) [Entitic 29.5 26.0-34.0 pG Normal 11-02-2019 [facility] mass] [place] (86738) MCHC (RBC) 32.4 30.5-36.0 g/dL Normal 11-02-2019 [facility] [Mass/Vol] [place] (24513) MCV (RBC) [Entitic 91.1 80.0-100.0 fL Normal 11-02-2019 [facility] vol] [place] (63127) Monocytes/100 WBC 8.9 % Normal 11-02-2019 C [facility] (Bld) [place] (86952) Neutrophils/100 WBC 74.5 % Normal 11-02-2019 [facility] (Bld) [place] (08596) NRBCs 0.0 0 /100 WBC Normal 11-02-2019 [facility] (85600) Platelet mean volume 8.6 9.0-12.7 fL Low 0 [facility] ([facility]) [Entitic vol] [place] (81327) Platelets (Bld) 238 150-400 k/uL Normal 11-02-2019 [facility] [#/Vol] [place] (23499) RBC (Bld) [#/Vol] 4.61 3.90-5.20 m/uL Normal 11-02-2019 C [facility] (42285) WBC (Bld) [#/Vol] 4.63 3.70-11.00 k/uL Normal 11-02-2019 [facility] (44335) cnco on 2019-08-18 CNCO Letter Text Normal 08-18-2019 [facility] (85857) surgical pathology on 2019-08-10 SURGICAL Specimen originated from [facility] Normal 08-10-2019 [place] [facility] Specimen #: [id number] [facility] Submitting Physician: THANIA LENZ [place] ([id number]) FINAL DIAGNOSIS Perirectal tissue, biopsy (A) - [...] in one cassette. Gross examination performed at [facility], [address] [place] [address] EJL 08/10/2019 4:52:43 PM Date of Report: 08/14/2019 Date of Procedure: 08/10/2019 Date of Receipt: 08/10/2019 Submitted by: THANIA LENZ Location: [facility] Diagnostic interpretation performed at [facility], [address] [place] [address]. CLIA Number: [id number] pt ed on 2019-08-10 PT ED HNO ID: [id number] Normal 08-10-2019 [facility] Author: Tisha Minor) XANDER Dial [place] ([id number]) Service: ? Author Type: Registered Nurse Type: Patient Education Filed: 08/10/2019 1:23 PM Note Text: PATIENT EDUCATION TOPIC: PROCEDURE / SURGERY: Post-op Teachi ng: Med Administration, Symptom Management and Wound Care PATIENT NAME: Cynthia Wallace PATIENT LOCATION: [place] [address] [address] READINESS TO LEARN COGNITIVE ABILITY: Alert and [...] RN progress on 2019-07 PROGRESS HNO ID: [id number] Normal 08-10-2019 [facility] Author: Thania Lenz [place] ([id number]) Service: ? Author Type: Physician Type: Progress Notes Filed: 08/10/2019 3:42 PM Note Text: Anal Cancer Tumor Board Follow-up Presentation Date of conference: 07/26/2019 Presenter/specialty: RASHID Clinical stage: III Inguinal Node Involvement: No Distant Metastases: No Type of Imaging Reviewed: MRI Pelvic Recommended Treatment: Biopsy from persisting perirectal mas s Clinical Trial Candidate: No Other Discussion: S/p Viv protocol, completed one year [facility] 08/02/18 Disciplines present: Colorectal Surgery, Medical Oncology, R adiation Oncology, Radiology, Anatomic Pathology and Genetic Counseli ng This is the summary of the general discussion provided at [facility] board conference. The final recommendations will be made by the [facility] care team and the patient after discussing the benefits, ris ks and alternatives to the various treatment options. Evaluated and completed by Thania Lenz MD operative no on 202 OPERATIVE NO HNO ID: [id number] Normal 08-10-19 [facility] Author: Thania Lenz [place] ([id number]) Service: Colorectal Author Type: Physician Type: Operative Report Filed: 2019 11:54 AM Note Text: [facility] - Operative Report [address] [place] [address] [place] CYNTHIA WALLACE : 1955 AGE: 63. SEX: F PATIENT TYPE: A HOSP C: [facility] LOCATION: [id number] ATTENDING PHYSICIAN: Thania Lenz M.D. CSN NUMBER: [id number] DATE OF SURGERY/PROCEDURE: 08/10/2019 INCISION/PROCEDURE START TIME: [...] ant erior position. SURGEON: Thania Lenz M.D. ART CLASS MODEL: Dr. Dayana Irene. SURGERY/PROCEDURE: Anorectal exam under [...] and my assist ant. Thania Lenz M.D. BEATRIS:[id number] /[id number] cc: cbc on 2019-08-10 Absolute nRBC <0.01 <0.01 Normal 08-10-2019 [facility] (40024) Comment: Performed By: #### CBC ####C [place] [id number]- [phone] Erythrocyte distribution 13.1 11.5-15.0 % Normal 08-10 [facility] width (RBC) [Ratio] [place] (16397) Comment: Performed By: #### CBC ####C [place] [id number]- [phone] Hematocrit (Bld) [Volume 43.6 36.0-46.0 % Normal 08-10 [facility] fraction] [place] (44651) Comment: Performed By: #### CBC ####C [place] [id number]- [phone] Hemoglobin (Bld) 14.1 11.5-15.5 g/dL Normal 08-10-2019 [facility] [Mass/Vol] [place] (72173) Comment: Performed By: #### CBC ####C [place] [id number]- [phone] MCH (RBC) [Entitic mass] 29.6 26.0-34.0 pG Normal 08-10 [facility] (73823) Comment: Performed By: #### CBC ####C [address] [id number] [phone] MCHC (RBC) [Mass/Vol] 32.3 30.5-36.0 g/dL Normal 08-10-19 20 [facility] (07255) Comment: Performed By: #### CBC ####C [place] [id number] [phone] MCV (RBC) [Entitic vol] 91.6 80.0-100.0 fL Normal 08-10 [facility] (38188) Comment: Performed By: #### CBC ####C [address] [id number] [phone] Platelet mean Unable to report 9.0-12.7 Normal 0 [facility] volume (Bld) [facility] (34742) [Entitic vol] Comment: Performed By: #### CBC ####C [address] [id number]- [phone] Platelets (Bld) Platelets Clumped, 150-400 Normal 08-10 [facility] [#/Vol] Estimate Normal [facility] (09201) Comment: Result Comment: No clot dete cted. Platelet count confirmed by manual review of peripheral blood smear. Performed By: #### CBC ####C [address] [id number] [phone] RBC (Bld) [#/Vol] 4.76 3.90-5.20 m/uL Normal 08-10-2019 C [facility] (48049) Comment: Performed By: #### CBC ####C [address] [id number] [phone] WBC (Bld) [#/Vol] 4.16 3.70-11.00 k/uL Normal 08-10-2019 [facility] (45629) Comment: Performed By: #### CBC ####C [facility] [address] [place], [place] [id number]- [phone] anes post on 08-10 ANES POST HNO ID: [id number] Normal 08-10-2019 [facility] Author: Gage Salcedo ([id number]) Service: Anesthesiology Author Type: Anesthesiologist Type: Anesthesia [...] 10, 2019 TIME: 1:06 PM PAGER/CONTACT #: [phone] type and scr (30d) on 2019-08-08 ABO/RH(D) O POSITIVE Normal 08-08-2019 [facility] (18982) Comment: Performed By: #### [id number] ## ##[facility] [address] [place] [place], [place] [id number]- [phone] history physical on 2019-08-08 HISTORY HNO ID: [id number] Normal 08-08-2019 [place] PHYSICAL Author: Thania Taylor Service: ? [place] Author Type: Physician ([id number]) Type: HANDP Filed: 08/09/2019 11:44 AM Note [...] Pelvis (Hcc) SUBJECTIVE CHIEF COMPLAINT: Mucus discharge [place]. Minor bleeding on paper only. HPI: Weight [...] medication, no h istory of angina, CHF, [place], cardiac surgery or stents. Denies rest pain , gangrene or revascularization/amputation for PVD. No history of cardiova scular symptoms or problems. GI: anal cancer : No history of UTI in past 6 weeks. No history of renal f ailure. Not currently on or requiring dialysis. No history of symptom s or problems. BANK PRESIDENT: Negative for abnormal vaginal bleeding, abnormal vagina [...] and radial pulses normal +2. Anorectal: Deferred Cocoa Bean Roaster Helper present: Yes, Dasha Power Diagnostic tests reviewed [...] with more than 50% of the t [facility] zntb-oc-uiep time of the visit in counseling / coordination of care. Thania Lenz MD Dept of COLORECTAL SURGERY August 08, 2019 11:25 AM ecg complete on ECG COMPLETE NAME : CYNTHIA WALLACE 2019 [facility] PID : [id number] Andrae adkins ([id number]) : 1955 Gender : Female Race : ORD : [id number] Procedure Date : Aug 08 2019 13:30:42 [...] ms QTC Calculation(Bazett) : 441 ms P [place] : 62 degrees R [place] : 16 degrees T [place] : 47 degrees Test Reason : Location : 119 : A17 A17 Overread By : DANA ROSALES MD Edited By : DANA ROSALES MD Referred By : THANIA LENZ Acquired by : An Syed metabolic panel on 2019-08-08 Albumin [Mass/Vol] 4.6 3.9-4.9 g/dL Normal 08-08-2019 [facility] ([id number]) Comment: Performed By: #### CMP, CBC ####[address] [phone] ALP [Catalytic activity/Vol] 82 34-123 U/L Normal 0 08-08-2019 [facility] (31414) Comment: Performed By: #### CMP, CBC ####[address] [phone] ALT [Catalytic activity/Vol] 12 7-38 U/L Normal 0 08-08-2019 [facility] (13684) Comment: Performed By: #### CMP, CBC ####[place] [id number] [place], [place] [phone]- [phone] Anion gap [Moles/Vol] 14 9-18 mmol/L Normal 08-08-19 [facility] (84294) Comment: Performed By: #### CMP, CBC ####[address] [phone] AST [Catalytic activity/Vol] 20 13-35 U/L Normal 0 08-08-2019 [facility] (36424) Comment: Performed By: #### CMP, CBC ####[place] [address] [address], [place] [phone]- [phone] Bilirubin [Mass/Vol] 0.3 0.2-1.3 mg/dL Normal 0 [facility] (22818) Comment: Performed By: #### CMP, CBC ####[place] [address] [address], [place] [phone]- [phone] Calcium [Mass/Vol] 9.8 8.5-10.2 mg/dL Normal 08-08-2019 [facility] (57075) Comment: Performed By: #### CMP, CBC ####[place] [address] [address], [place] [phone]- [phone] Chloride [Moles/Vol] 103 97-105 mmol/L Normal 0 [facility] (22597) Comment: Performed By: #### CMP, CBC ####[place] [address] [address], [place] [phone] CO2 [Moles/Vol] 25 22-30 mmol/L Normal 08-08-2019 [facility] (25100) Comment: Performed By: #### CMP, CBC ####[facility], [place] [phone]- [phone] Creatinine [Mass/Vol] 0.94 0.58-0.96 mg/dL Normal 08-08-19 20 [facility] (43403) Comment: Performed By: #### CMP, CBC ####[facility], [place] [phone]- [phone] eGFR- Amer. >60 Normal 08-08-2019 [facility] (01108) Comment: Performed By: #### CMP, CBC ####[place] [address] [address], [place] [phone]- [phone] GFR/1.73 sq M predicted among 60 . Normal 08-08-2019 [facility] non-blacks MDRD (S/P/Bld) [Vol (29547) rate/Area] Comment: Result Comment: eGFR (Estima willard [...] actual GFR. Performed By: #### CMP, CBC ####[facility] [place], [place] [phone]- [phone] Glucose [Mass/Vol] 88 74-99 mg/dL Normal 08-08-2019 [facility] (86275) Comment: Result Comment: The [place] Diabetes Association (ADA) provides guidance for cutoff [...] for diagnosis of diabetes. Reference: Standards of [facility] Care in Diabetes 2016, [place] Diabetes Association. Diabetes Care. 2016.39(Suppl 1). Performed By: #### CMP, CBC ####[facility] [address], [place] [phone]- [phone] Potassium [Moles/Vol] 4.7 3.7-5.1 mmol/L Normal 08-08-19 [facility] (01040) Comment: Performed By: #### CMP, CBC ####[facility] [address] [place], [place] [phone]- [phone] Protein [Mass/Vol] 7.2 6.3-8.0 g/dL Normal 08-08-2019 [facility] (74646) Comment: Performed By: #### CMP, CBC ####[facility] [address] [place], [place] [phone]- [phone] Sodium [Moles/Vol] 142 136-144 mmol/L Normal 08-08-2019 [facility] (51887) Comment: Performed By: #### CMP, CBC ####[facility] [address] [place], [place] [phone]- [phone] Urea nitrogen [Mass/Vol] 12 7-21 mg/dL Normal 08-08 [facility] (11760) Comment: Performed By: #### CMP, CBC ####[facility] [place], [place] [phone] cnov on 2019-08-08 CNOV Office Visit (KHUSHBOO) Normal 08-08-[address] [place] [address] Brandon WALLACECYNTHIA Olga ([id number]) 1955 [facility] Date Time Provider Department ([id number]) 08/08/19 11:30 AM THANIA LENZ During your [...] Pelvis (Hcc) SUBJECTIVE CHIEF COMPLAINT: Mucus discharge TX. Minor bleeding on paper only. HPI: Weight [...] medi cation, no history of angina, CHF, [place], cardiac surgery or stents. Denies rest pain, gangre ne or revascularization/amputation for PVD. No history of cardiovascular symptoms or problems. GI: anal cancer : No history of UTI in past 6 weeks. No history of renal f ailure. Not currently on or requiring dialysis. No history of symptom s or problems. BANK PRESIDENT: Negative for abnormal vaginal bleeding, abnormal vagina [...] and radial pulses normal +2. Anorectal: Deferred Cocoa Bean Roaster Helper present: Yes, Dasha Power Diagnostic tests reviewed [...] and the roles and tasks of the [facility] nn to be involved were discussed [...] with more than 50% of the total hmir-wl-wwyw time of the visit in counseling / coordination of care. Thania Lenz MD Dept of COLORECTAL SURGERY August 08, 2019 11:25 AM Referring Provider: THANIA LENZ [[id number]] Allergies As of Date: 08/08/2019 (No Known [...] 2019-08-08 Absolute nRBC <0.01 <0.01 Normal 08-08-2019 [facility] (69171) Comment: Performed By: #### CMP, CBC ####[place] [address], [place] [phone]- [phone] Erythrocyte distribution 13.2 11.5-15.0 % Normal 08-08 [facility] width (RBC) [Ratio] [place] (72446) Comment: Performed By: #### CMP, CBC ####[address], [place] [phone]- [phone] Hematocrit (Bld) [Volume 45.2 36.0-46.0 % Normal 08-08 [facility] fraction] [place] (69965) Comment: Performed By: #### CMP, CBC ####[address], [place] [phone]- [phone] Hemoglobin (Bld) 14.5 11.5-15.5 g/dL Normal 08-08-2019 [facility] [Mass/Vol] [place] (31713) Comment: Performed By: #### CMP, CBC ####[address], [place] [phone]- [phone] MCH (RBC) [Entitic mass] 30.0 26.0-34.0 pG Normal 08-08 [facility] (20609) Comment: Performed By: #### CMP, CBC ####[place] [address], [place] [phone] MCHC (RBC) [Mass/Vol] 32.1 30.5-36.0 g/dL Normal 08-08-19 [facility] (70754) Comment: Performed By: #### CMP, CBC ####[place] [address], [place] [phone]- [phone] MCV (RBC) [Entitic vol] 93.4 80.0-100.0 fL Normal 08-08 [facility] (87821) Comment: Performed By: #### CMP, CBC ####[address] [place], [place] [phone] Platelet mean Unable to report 9.0-12.7 Normal 0 [facility] volume (Bld) Yamila baca (23878) [Entitic vol] Comment: Performed By: #### CMP, CBC ####[address] [phone] Platelets (Bld) Platelets Clumped, 150-400 Normal 08-08 [facility] [#/Vol] Estimate [facility] [place] (07909) Comment: Result Comment: Result check ed and verified No clot detected. Platelet count confirmed by manual review of peripheral blood smear. Performed By: #### CMP, CBC ####[address] [phone] RBC (Bld) [#/Vol] 4.84 3.90-5.20 m/uL Normal 08-08-2019 [facility] (24605) Comment: Performed By: #### CMP, CBC ####[address] [phone]- [phone] WBC (Bld) [#/Vol] 5.47 3.70-11.00 k/uL Normal 08-08-2019 [facility] (68438) Comment: Performed By: #### CMP, CBC ####[address] [phone] hosp on 2019-07-29 HOSP Patient:Cynthia Wallace Normal 2019 [facility] MRN: Matias ([id number]) Height:5' 2(1.575 m) Weight:190 lb 3.2 oz [...] Pelvis (Hcc) SUBJECTIVE CHIEF COMPLAINT: Mucus discharge TX. Minor bleeding on paper only. HPI: Weight [...] medi cation, no history of angina, CHF, [place], cardiac surgery or stents. Denies rest pain, gangre ne or revascularization/amputation for PVD. No history of cardiovascular symptoms or problems. GI: anal cancer : No history of UTI in past 6 weeks. No history of renal f ailure. Not currently on or requiring dialysis. No history of symptom s or problems. BANK PRESIDENT: Negative for abnormal vaginal bleeding, abnormal vagina [...] and radial pulses normal +2. Anorectal: Deferred Cocoa Bean Roaster Helper present: Yes, Dasha Power Diagnostic tests reviewed [...] with more than 50% of the total wdzd-bd-fdcl time of the visit in counseling / coordination of care. Thania Lenz MD Dept of COLORECTAL SURGERY August 08, 2019 11:25 AM Previous Version Progress Notes (CORS SURG MAIN): Xochitl Howelldoloresshaggy [facility] 08/02/2019 4:25 PM Signed [phone] ? Cynthia Wallace is scheduled 08/10 for [...] do christiana t morning of procedure. Bibi aJcobs, RN, RN 08/03/2019 8:24 AM Signed Attempted to call x2 with no answer and voicemail full Will send Lingoramihart message about why pre-operativ e appointments cannot be done day of surgery Bibi Jacobs, RN, RN 08/03/2019 4:41 PM Signed Per pt at 4:40pm she is unable to come tomorrow 08/04 SHe will do pre-ops on Tuesday 08/08 She knows to expect a schedule for these appointments Case Message sent progress on 2019-06 PROGRESS HNO ID: [id number] Normal 07-21-2019 [facility] Author: Thania Lenz [place] ([id number]) Service: ? Author Type: Physician Type: Progress [...] No history of dysuria, frequency or incontinence BANK PRESIDENT: Negative for abnormal vaginal bleeding, abnormal vagina [...] rectal digital palpation, anus normal at inspection Cocoa Bean Roaster Helper present: Yes, Dasha Bookert Flexible sigmoidoscopy: Procedure: [...] 07/21/19 TIME: 3:52 PM PROGRESS HNO ID: [id number] Normal 07-21-2019 [facility] Author: Lara (Xander) XANDER Leone Salcedo ([id number]) Service: Nursing Author Type: Registered Nurse Type: [...] A peripheral IV was started in the [facility] antecubital site with a Angio cath: 22 gauge. 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 Multiplanar MRI with multiple [...] of residual viable tumor. No pelvic lymphadenopathy. Senior Lead Software Engineer: PSCB Transcribe Date/Time: Jul 21 2019 3:54P Dictated by : EDGAR BELL MD This examination was interpreted and the report reviewed and electronically signed by: EDGAR BELL MD on Jul 21 2019 4:12PM EST [id number] cnov on 2019-07-21 CNOV Office Visit (KHUSHBOO) Normal 07-21-[address] [place] [address] [facility] CYNTHIA WALLACE ([id number]) 1955 F [place] Date Time Provider Department ([id number]) 07/21/19 2:30 PM THANIA LENZ During your [...] No history of dysuria, frequency or incontinence BANK PRESIDENT: Negative for abnormal vaginal bleeding, abnormal vagina [...] rectal digital palpation, anus normal at inspection Cocoa Bean Roaster Helper present: Yes, Dasha Power Flexible sigmoidoscopy: Procedure: [...] TIME: 3:52 PM Referring Provider: THANIA LENZ [[id number]] Allergies As of Date: 07/21/2019 (No Known [...] 07/22/19 progress on 2019-05 PROGRESS HNO ID: [id number] Normal 06-01-2019 [facility] Author: Charissa Hollins [place] ([id number]) Service: ? Author Type: Physician Type: Progress [...] MD cc: Be Esquivel DO [address] [place] [address] aggie on 2019-06-01 CNOV Office Visit (RADTWS) Normal 06-01-20 [place] CYNTHIA Bardales ([id number]) 1955 [facility] Date Time Provider Department ([id number]) 06/01/19 3:30 PM CHARISSA HOLLINS During your visit today, we recorded the following informati on about you: Temperature Pulse Respiration Blood pressure 98 degrees 54/minute 16/minute 148/73 Weight 86 kg Kelsea Chopra RN, RN 06/01/2019 3:40 PM Signed Radiation Therapy - Nursing Note (Follow-up) PATIENT NAME: Cynthia Wallace PATIENT June 01, 2019 [facility] FACILITY/LOCATION: [place] Reason for visit: Follow up. Subjective Data No c/o Additional Data Do you want to see a Lecturer In Computer Science? No Nursing Assessment Fatigue: increased fatigue over [...] Hollins MD cc: Be Esquivel, [address] [place] [address] Referring Provider: CHARISSA HOLLINS [[id number]] Allergies As of Date: 06/01/2019 (No Known [...] Visit Notes: >> Kelsea (Rn) XANDER Chopra [facility] Jun 01, 2019 3:36 PM Status: S igned Radiation Therapy - Nursing Note (Follow-up) PATIENT NAME: Cynthia Wallace PATIENT June 01, 2019 [facility] FACILITY/LOCATION: [place] Reason for visit: Follow up. Subjective Data No c/o Additional Data Do you want to see a Lecturer In Computer Science? No Nursing Assessment Fatigue: increased fatigue over [...] Gran Count 2.58 1.45-7.50 k/uL Normal 05-12-2019 [facility] ([id number]) Erythrocyte distribution 13.7 11.5-15.0 % Normal 05-12 [facility] width (RBC) [Ratio] [place] (52406) Hematocrit (Bld) [Volume 38.1 36.0-46.0 % Normal 05-12 [facility] fraction] [place] (31753) Hemoglobin (Bld) 12.7 11.5-15.5 g/dL Normal 05-12-2019 [facility] [Mass/Vol] [place] (81794) MCH (RBC) [Entitic mass] 30.3 26.0-34.0 pg Normal 05-12 [facility] (55154) MCHC (RBC) [Mass/Vol] 33.3 30.5-36.0 g/dL Normal 05-12-20 [facility] (44533) MCV (RBC) [Entitic vol] 90.9 80.0-100.0 fL Normal 05-12 [facility] (06753) Platelet mean volume 8.3 9.0-12.7 fL Low [facility] (Bld) [Entitic vol] [place] (87050) Comment: Result Comment: Test perform ed by: [facility] [place], [address] [place], [place] [address]. RBC (Bld) [#/Vol] 4.19 3.90-5.20 m/uL Normal 05-12-2019 [facility] (70944) WBC (Bld) [#/Vol] 3.78 3.70-11.00 k/uL Normal 05-12-2019 [facility] (18481) [place] Platelet Cnt 220 150-400 k/uL Normal 9 [facility] (40015) progress on 2019-04 PROGRESS HNO ID: [id number] Normal 05-12-2019 [facility] Author: Jules izaguirre ([id number]) Service: ? Author Type: Physician Type: Progress [...] Latest Ref Rng AND Units 05/12/2019 WBC, [place] 3.70 - 11.00 k/uL 3.78 RBC, [place] 3.90 - 5.20 m/uL 4.19 Hemoglobin, [place] 11.5 - 15.5 g/dL 12.7 Hematocrit, [place] 36.0 - 46.0 % 38.1 MCV, [place] 80.0 - 100.0 fL 90.9 MCH, [place] 26.0 - 34.0 pg 30.3 MCHC, [place] 30.5 - 36.0 g/dL 33.3 RDW, [place] 11.5 - 15.0 % 13.7 Platelet Cnt, [place] 150 - 400 k/uL 220 MPV, [place] 9.0 - 12.7 fL 8.3 (L) Absol [...] 6 months. 3) follow-up with PCP and BANK PRESIDENT regarding vaginal cuff granulo ma and irritation 4) Flu vaccine today Jules Miner MD Cc;?Dr. Be Esquivel ?Dr. Olivarez?Delfin ? cnovsp on 2019-04-28 5 CNOVSP Visit (SP) Office (HEMAWS) Normal [facility] WALLACECYNTHIA ([id number]) 1955 F [facility] Time Provider Department ([id number]) 05/12/19 2:50 PM JULES MINER During your [...] [place] 3.70 - 11.00 k/uL 3.78 RBC, [place] 3.90 - 5.20 m/uL 4.19 Hemoglobin, [place] 11.5 - 15.5 g/dL 12.7 Hematocrit, [place] 36.0 - 46.0 % 38.1 MCV, [place] 80.0 - 100.0 fL 90.9 MCH, [place] 26.0 - 34.0 pg 30.3 MCHC, [place] 30.5 - 36.0 g/dL 33.3 RDW, [place] 11.5 - 15.0 % 13.7 Platelet Cnt, [...] 6 months. 3) follow-up with PCP and BANK PRESIDENT regarding vaginal cuff granuloma and irritation 4) Flu vaccine today Jules Miner MD Cc;?Dr. Be Esquivel ?Dr. Olivarez?Delfin ? 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 Author Type: Nurse Practitioner Type: [...] file Gets together: Not on file Attends scientology service: Not on file Active member of [...] genitalia normal, normal Bartholin's glands , urethra, Linganore's glands, physiologic discharge present, normal appear ing [...] 2019-04-10 CNOV Office Visit (WOOB) Normal 04-10-2019 [facility] CYNTHIA WALLACE ([id number]) 1955 [facility] Date Time Provider Department ([id number]) 04/10/19 2:15 PM DENISE DOUGHERTY (ISHA) WOOB [...] file Gets together: Not on file Attends scientology service: Not on file Active member of [...] genitalia normal, pema l Bartholin's glands, urethra, Linganore's glands, physiologic discharge present, normal appearing joe maira body and perianal region, red rash slightly raise d to the right labial area and down to the inner thigh tender to touch NEURO: alert and oriented x3,exam grossly non-focal ASSESSMENT/PLAN: 1. Vulvar irritation - ICD9: 624.8, ICD10: N90.89 Lotrisone BID x 7 day Lidocaine PRN for pain Follow up PRN Denise Dougherty APRN.PROFESSIONAL EMPLOYER CONSULTANT Referring Provider: DENISE DOUGHERTY (PROFESSIONAL EMPLOYER CONSULTANT) [[id number]] Allergies As of Date: 04/10/2019 (No Known [...] Mri pelvis w/o & 03-25-2020 [place] (Res) [facility] (51263) w/contrast material Antibody screen 08-08-2019 [facility] (24999 ) Comment: Performed By: #### [id number] ## ##[facility] [id number] [place], [place] [phone]- [phone] Plan of Treatment Plan Description Date Location DIABETES SCREEN DIABETES SCREEN 11-01-2022 - [facility] 11-01-2022 (11945) INFLUENZA (#1) INFLUENZA (#1) 2020 - [facility] 02-27-2020 (03024) ADVANCE DIRECTIVE ADVANCE DIRECTIVE 2018 - [facility] inic DISCUSSION DISCUSSION 2018 (12536) BONE DENSITY BONE DENSITY 2018 - [facility] 2018 (86896) PNEUMOVAX AGE 65 AND PNEUMOVAX AGE 65 AND 2018 - [facility] OVER WITH 5YR LOOKBACK OVER WITH 5YR LOOKBACK 2018 (9 9609) (#1) (#1) SHINGRIX VACCINE (1 of SHINGRIX VACCINE (1 of 2003 - [facility] 2) 2) 2003 (13310) COLORECTAL CANCER COLORECTAL CANCER 2003 - [facility] inic SCREENING,SEE MODIFIER SCREENING,SEE MODIFIER 2003 (3 1413) LIPID SCREEN LIPID SCREEN 1998 - [facility] 1998 (91658) MAMMOGRAM MAMMOGRAM 1993 - [facility] 1993 (14598) DTAP,TDAP,TD (1 - Tdap) DTAP,TDAP,TD (1 - Tdap) 1972 - [facility] 1972 (42351) no information [facility] (85550) Immunizations Vaccine Notes Status Date Location Influenza Seasonal - influenza, high (completed) 05-12-2019 - [facility] High Dose - Age 65+ dose seasonal, 05-12-2019 (65783 ) preservative-free Payers Payer Name Policy Number Location MEDICARE [id number] [facility] (44 195) [employer] [place] [id number] [facility] (44 195) The following information is from the original human readable contentNo Payer Records Found Social History Type Social History Date Location Description Tobacco smoking status Never smoker 01-04-2020 - [facility] NHIS 02-06-2020 (02935) Tobacco use and Never used 01-04-2020 [facility] exposure 02-06-2020 (09841) Alcohol intake Current non-drinker of 01-04-2020 [facility] alcohol (finding) 02-06-2020 (82109) Sex Assigned At Not on file [facility] (99265) Exposure to SARS-CoV-2 Not sure [facility] (event) (19710) The following information is from the original human readable contentNo Social History Records Found Advance Directives No Advanced Directives Records Found Documents on File Type Date Recorded Patient Creative Guru Explanati on Advance Directive(s) 07/31/2019 4:22 PM [...] BE BASED ON THE PRIMARY CLINICAL RECORDS. [employer] [facility] provides no warranty or guarantee of the accuracy or completeness of information in this document. UNRECOGNIZED CONTENT PROVIDED BELOW FOR UNRECOGNIZED SECTION Source Comments In the event this information is protected by the Federal Confidentiality of Alcohol and Drug Abuse Patient Records regulations: The Federal rules restrict any use of the information to criminally investigate or prosecute any alcohol or drug abuse patient.[facility] Hospital[facility] the event this information is protected by the Federal Confidentiality of Alcohol and Drug Abuse Patient Records regulations: The Federal rules restrict any use of the information to criminally investigate or prosecute any alcohol or drug abuse patient.[facility] Hospital[facility] the event this information is protected by the Federal Confidentiality of Alcohol and Drug Abuse Patient Records regulations: The Federal rules restrict any use of the information to criminally investigate or prosecute any alcohol or drug abuse patient.[facility] Hospital[facility] the event this information is protected by the Federal Confidentiality of Alcohol and Drug Abuse Patient Records regulations: The Federal rules restrict any use of the information to criminally investigate or prosecute any alcohol or drug abuse patient.[facility] Hospital[facility] the event this information is protected by the Federal Confidentiality of Alcohol and Drug Abuse Patient Records regulations: The Federal rules restrict any use of the information to criminally investigate or prosecute any alcohol or drug abuse patient.[facility] UNRECOGNIZED CONTENT PROVIDED BELOW FOR UNRECOGNIZED SECTION Reason for Visit Reason Onset Date Comments Opened In Error 02/16/2020 Reason Comments Radiology MRI Reason Onset Date Comments Question 02/16/2020 Reason Comments Appointment Follow-up UNRECOGNIZED CONTENT PROVIDED BELOW FOR UNRECOGNIZED SECTION Miscellaneous Notes Telephone Encounter - Vale Driscoll - 02/20/2020 2:31 PM EDTSpoke with patient and scheduled at [facility]. Vale Segovia elephone Encounter - Vale Driscoll - 02/16/2020 3:04 PM EDTPatient is calling in to determine which type of MRI is being ordered (with or without rectal probe)as she is trying to find a location closer to home to have the MRI done. [facility] [...] DATE CREATED AUTHOR AUTHOR'S ORGANIZATIO N 04/01/2020 [facility] Ranjith ramirez
== END 2019-11-15 20:34 | disposition home or self-care (01) ==
PROVIDERS: Emergency Provider Emergency Medicine; PCP Family Medicine
DX: B34.9 Viral infection, unspecified (principal); C20 Malignant neoplasm of rectum; D69.6 Thrombocytopenia, unspecified; Z92.3 Personal history of irradiation; R94.31 Abnormal electrocardiogram [ECG] [EKG]
CPT/HCPCS: 71045; 80053; 81001; 83605; 85025; 85610; 85730; 87040; 87086; 87088; 87635; 93005; 96361; 96374; 99284; G2023; J7030; A4216; J2405; U0004

== ENCOUNTER 2020-01-24 08:30 | Outpatient (RCR) | payer MEDICARE, OTHER, SELFPAY ==
[2019-11-15 16:02] VITALS: BMI 35.8
[2020-01-17 09:19] VITALS: BP 146/83; PULSE 61; RESP 18; TEMP 36.7; O2SAT 99; BMI 35.8
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
[2020-01-24 08:22] VITALS: BP 138/63; PULSE 65; RESP 18; TEMP 36.5; BMI 35.8
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
== END 2020-01-26 23:59 ==
LOC: WC 08:30
PROVIDERS: PCP Family Medicine; Referring Provider Podiatrist; Visit Provider Podiatrist
DX: T81.41XA Infection following a procedure, superficial incisional surgical site, initial encounter (principal); T21.0 Burn of unspecified degree of trunk; Y84.2 Radiological procedure and radiotherapy as the cause of abnormal reaction of the patient, or of later complication, without mention of misadventure at the time of the procedure; Z80.3 Family history of malignant neoplasm of breast; Z90.710 Acquired absence of both cervix and uterus; Z85.048 Personal history of other malignant neoplasm of rectum, rectosigmoid junction, and anus
CPT/HCPCS: 11042; 99212; G0463

== ENCOUNTER 2020-02-07 08:15 | Outpatient (RCR) | payer MEDICARE, OTHER, SELFPAY ==
[2020-01-27 00:42] VITALS: BP 138/63; PULSE 65; RESP 18; TEMP 36.5; O2SAT 99
[2020-01-31 08:39] VITALS: BP 144/97; PULSE 70; RESP 16; TEMP 36.9; BMI 35.8
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
== END 2020-02-26 23:59 ==
LOC: WC 08:15
PROVIDERS: PCP Family Medicine; Referring Provider Podiatrist; Visit Provider Podiatrist
DX: T81.41XA Infection following a procedure, superficial incisional surgical site, initial encounter (principal); Y84.2 Radiological procedure and radiotherapy as the cause of abnormal reaction of the patient, or of later complication, without mention of misadventure at the time of the procedure; Z85.048 Personal history of other malignant neoplasm of rectum, rectosigmoid junction, and anus; T21.0 Burn of unspecified degree of trunk
CPT/HCPCS: 11042

== ENCOUNTER → 2020-03-18 11:39 | Outpatient (CLI) | payer MEDICARE, OTHER, SELFPAY ==
[2020-01-31 08:39] VITALS: BMI 35.8
--- NOTE | 2020-03-18 11:53 | BI_ITS ---
MAMMOGRAPHY - BILATERAL SCREENING REASON FOR EXAM: Female, 64 years old. Routine annual screening examination. PERTINENT HISTORY: Sister with breast cancer. Grandmother with breast cancer. TECHNIQUE: Digital bilateral breast domingo (3D mammographic acquisition) in the CC and MLO projections. 2-D mediolateral oblique (MLO) and craniocaudad (CC) views of both breasts were obtained. CAD: Full Field Digital Mammography with Computer Added Detection was performed. COMPARISON: Comparison is made with prior examination dated 03/07/2019 and 03/02/2018. FINDINGS: Breast Composition: There are scattered areas of fibroglandular density. There are no dominant masses or suspicious calcifications. Stable small benign appearing bilateral axillary nodes. No other significant abnormalities are identified. There has been no significant change since the prior study. BI/SCREEN MAMM (CAD) W/DOMINGO BILAT IMPRESSION: Stable bilateral screening mammogram. Yearly follow-up mammogram recommended. (A) ASSESSMENT CATEGORY: BIRADS Category 2: Benign. A letter regarding these results will be sent to the patient by the facility within 30 days. Approximately 10% of breast cancers are not detected by mammography. A normal mammogram should not delay biopsy of a clinically suspicious abnormality. [id number] Electronically Signed: Flakito Hernández, at 13:25 EDT , Service support ,
== END ==
PROVIDERS: PCP Family Medicine; Referring Provider Student in an Organized Health Care Education/Training Program; Visit Provider Student in an Organized Health Care Education/Training Program
DX: Z12.31 Encounter for screening mammogram for malignant neoplasm of breast (principal); Z80.3 Family history of malignant neoplasm of breast
CPT/HCPCS: 77063; 77067

== ENCOUNTER → 2021-03-21 14:38 | Outpatient (CLI) | payer MEDICARE, OTHER, SELFPAY ==
--- NOTE | 2021-03-21 15:15 | BI_ITS ---
MAMMOGRAPHY - BILATERAL SCREENING REASON FOR EXAM: Female, 65 years old. Routine annual screening examination. PERTINENT HISTORY: Sister with breast cancer. Grandmother with breast cancer. TECHNIQUE: Digital bilateral breast domingo (3D mammographic acquisition) in the CC and MLO projections. 2-D mediolateral oblique (MLO) and craniocaudad (CC) views of both breasts were obtained. CAD: Full Field Digital Mammography with Computer Added Detection was performed. COMPARISON: Comparison is made with prior study dated 03/18/2020 and 03/07/2019. FINDINGS: Breast Composition: There are scattered areas of fibroglandular density. There are no dominant masses or suspicious calcifications. No other significant abnormalities are identified. There has been no significant change since the prior study. BI/SCRN MAMM (CAD)W/DOMINGO BILAT IMPRESSION: Stable bilateral screening mammogram. Yearly follow-up mammogram recommended. (A) ASSESSMENT CATEGORY: BIRADS Category 1: Negative. A letter regarding these results will be sent to the patient by the facility within 30 days. Approximately 10% of breast cancers are not detected by mammography. A normal mammogram should not delay biopsy of a clinically suspicious abnormality. [id number] Electronically Signed: Flakito Hernández MD at 8:33 EDT , Service support ,
== END ==
PROVIDERS: PCP Student in an Organized Health Care Education/Training Program; Referring Provider Student in an Organized Health Care Education/Training Program; Visit Provider Student in an Organized Health Care Education/Training Program
DX: Z12.31 Encounter for screening mammogram for malignant neoplasm of breast (principal); Z80.3 Family history of malignant neoplasm of breast
CPT/HCPCS: 77063; 77067

== ENCOUNTER 2022-01-29 10:10 | Outpatient (CLI) | payer MEDICARE, OTHER, SELFPAY ==
[2022-02-02 14:08] LABS: H. PYLORI STOOL AG Negative (Negative)
[2022-02-02 16:53] LABS: Giardia Lamblia, Stool EIA Negative (Negative)
== END 2022-01-29 23:59 | disposition home or self-care (01) ==
PROVIDERS: PCP Nurse Practitioner Family; Referring Provider Nurse Practitioner Family; Visit Provider Nurse Practitioner Family
DX: R10.32 Left lower quadrant pain (principal); R19.7 Diarrhea, unspecified
CPT/HCPCS: 83630; 87329; 87506

== ENCOUNTER → 2022-01-30 | Outpatient (CLI) | payer MEDICARE, OTHER, SELFPAY ==
--- NOTE | 2022-01-30 12:00 | CT_ITS ---
EXAM: CT ABDOMEN AND PELVIS WITH INTRAVENOUS CONTRAST CLINICAL INDICATION: LLQ ABD PAIN TECHNIQUE: Helically acquired images were obtained of the abdomen and pelvis with intravenous contrast. This CT exam was performed using one or more of the following dose reduction techniques: automated exposure control, adjustment of the mA and/or kV according to patient size, and/or use of iterative reconstruction technique. This report was created using [employer] report generation technology. CONTRAST: Oral and amp; IV Gastrografin and amp; 100mL Isovue-300 COMPARISON: CT Abdomen Pelvis dated march 12 2017 FINDINGS: LOWER THORAX: Small hiatal hernia. ABDOMEN: LIVER: Normal. Homogeneous. No focal mass. GALLBLADDER AND BILE DUCTS: Normal. No calcified gallstones. No gallbladder distention or wall edema. No intra- or extrahepatic biliary ductal dilation. PANCREAS: Normal. No focal cystic or solid mass. SPLEEN: Normal. Normal size without focal cystic or solid mass. ADRENALS: Normal. No nodules. KIDNEYS AND URETERS: Normal. Normal renal size and position. No hydronephrosis. STOMACH AND BOWEL: Mild fluid distention of the large bowel may be related to enteritis. PELVIS: APPENDIX: Appendix is visualized and normal in appearance. BLADDER: Normal. REPRODUCTIVE: Uterus is absent. ABDOMEN and PELVIS: INTRAPERITONEAL SPACE: Normal. No ascites or other fluid collection. No free air. BONES/JOINTS: Normal. No suspicious lytic or blastic abnormality. SOFT TISSUES: Normal. No discrete abdominal or pelvic wall hernia. VASCULATURE: Normal. Abdominal aorta is non-dilated. LYMPH NODES: Normal. No enlarged lymph nodes. CT/Abdomen/Pelvis WITH Contrast IMPRESSION: Fluid distention of the large bowel which may be related to enteritis. Electronically Signed: Everardo Goetz MD at 14:35 EDT ,
[2022-01-30 12:17] LABS: ALB/GLOB Ratio 1.1 RATIO (0.9-2.4); AST(SGOT) 18 U/L (15-37); Alanine Aminotransfer ALT/SGPT 21 U/L (13-56); Albumin, Serum 3.9 g/dL (3.2-5.0); Alkaline Phosphatase 77 U/L (45-117); Anion Gap 6 (5-15); BUN 16 mg/dL (7-18); BUN/Creat Ratio 15.2 RATIO (10-20); Chloride 104 mmol/L (98-107); Creatinine, Serum 1.05 mg/dL (0.55-1.02); EST Glomerular Filtration Rate 55 mL/min (>60); Est Glom Filt Rate - Afr Amer 67 mL/min (>60); Globulin 3.5 g/dL (2.2-4.2); Glucose 105 mg/dL (74-106); Potassium 3.3 mmol/L (3.5-5.1); Protein, Total 7.4 g/dL (6.4-8.2); Sodium Level 137 mmol/L (136-145)
[2022-01-30 12:40] LABS: Hematocrit 42.3 % (37-47); Hemoglobin 13.8 g/dL (12.0-15.0); Mean Corp Hgb Conc 32.6 g/dL (32-36); Mean Corpuscular Hgb 29.2 pg (27.0-32.0); Mean Corpuscular Volume 89.4 fL (81-99); Mean Platelet Vol. 9.4 fl (6.2-12.0); Platelet Count 225 K/mm3 (150-450); RBC Distribution Width CV 12.9 % (11.6-14.6); RBC Distribution Width SD 42.7 fl (35.1-43.9); Red Blood Count 4.73 M/mm3 (4.2-5.4); White Blood Count 5.9 K/mm3 (4.4-11.0)
== END | disposition home or self-care (01) ==
LOC: CT 11:50
PROVIDERS: PCP Nurse Practitioner Family; Visit Provider Nurse Practitioner Family
DX: R10.32 Left lower quadrant pain (principal); C20 Malignant neoplasm of rectum; M54.50 Low back pain, unspecified
CPT/HCPCS: 36415; 74177; 80053; 85027; Q9967

== ENCOUNTER → 2022-02-25 | Outpatient (CLI) | payer MEDICARE, OTHER, SELFPAY ==
[2022-02-25 12:17] LABS: Rheumatoid Factor < 10.0 IU/mL (<15)
[2022-02-26 17:23] LABS: ANTINUCLEAR ANTIBODIES DIRECT Positive (Negative)
== END | disposition home or self-care (01) ==
LOC: LAB 11:01
PROVIDERS: PCP Nurse Practitioner Family; Referring Provider Nurse Practitioner Family; Visit Provider Nurse Practitioner Family
DX: M25.50 Pain in unspecified joint (principal)
CPT/HCPCS: 36415; 86038; 86140; 86431

== ENCOUNTER → 2022-04-14 | Outpatient (CLI) | payer MEDICARE, OTHER, SELFPAY ==
--- NOTE | 2022-04-14 13:09 | BI_ITS ---
MAMMOGRAPHY - BILATERAL SCREENING REASON FOR EXAM: Female, 66 years old. Routine annual screening examination. PERTINENT HISTORY: Sister with breast cancer. Grandmother with cancer. TECHNIQUE: Digital bilateral breast domingo (3D mammographic acquisition) in the CC and MLO projections. 2-D mediolateral oblique (MLO) and craniocaudad (CC) views of both breasts were obtained. CAD: Full Field Digital Mammography with Computer Added Detection was performed. COMPARISON: Comparison is made with prior study 03/21/2021 and 03/18/2020 FINDINGS: Breast Composition: There are scattered areas of fibroglandular density. There is a 4.2 mm 4 mm well-defined nodule in the deep slightly upper lateral aspect of the left breast. Correlation with ultrasound is recommended. Stable benign-appearing bilateral axillary lymph nodes. No other significant abnormalities are identified. BI/SCRN MAMM (CAD)W/DOMINGO BILAT IMPRESSION: 4.2 mm x 4 mm well-defined nodule in the deep slightly upper lateral aspect of the left breast. Correlation with ultrasound is recommended. ASSESSMENT CATEGORY: BIRADS Category 0: Incomplete. Need additional imaging evaluation. A letter regarding these results will be sent to the patient by the facility within 30 days. Approximately 10% of breast cancers are not detected by mammography. A normal mammogram should not delay biopsy of a clinically suspicious abnormality. [id number] Electronically Signed: Flakito Hernández MD at 14:06 EDT ,
== END | disposition home or self-care (01) ==
LOC: OPBI 13:07
PROVIDERS: PCP Nurse Practitioner Family; Referring Provider Nurse Practitioner Family; Visit Provider Nurse Practitioner Family
DX: Z12.31 Encounter for screening mammogram for malignant neoplasm of breast (principal); Z80.3 Family history of malignant neoplasm of breast
CPT/HCPCS: 77063; 77067

== ENCOUNTER → 2022-04-21 | Outpatient (CLI) | payer MEDICARE, OTHER, SELFPAY ==
--- NOTE | 2022-04-21 14:51 | US_ITS ---
STUDY: ULTRASOUND BREAST - LEFT REASON FOR EXAM: Female, 66 years old. Abnormal screening mammogram. TECHNIQUE: Axial and longitudinal images of the LEFT breast were performed with a high resolution ultrasound transducer. # OF IMAGES: 46 COMPARISON: Comparison is made with prior mammogram dated 04/14/2022. FINDINGS: LEFT Breast: There is a 3 mm x 4 mm x 2 mm hypoechoic slightly irregular nodule at the 3 o''clock position of the breast at 6 cm from the nipple. Biopsy recommended. US/Breast Limited Unilateral IMPRESSION: 3 mm x 4 mm x 2 mm hypoechoic slightly irregular nodule at the 3 o''clock position of the breast a 6 times from nipple. Biopsy recommended. ASSESSMENT CATEGORY: BIRADS Category 4: Suspicious - Biopsy Should Be Considered. A letter regarding these results will be sent to the patient by the facility within 30 days. Electronically Signed: Flakito Hernández MD at 12:04 EDT ,
== END | disposition home or self-care (01) ==
LOC: OPUS 14:50
PROVIDERS: PCP Nurse Practitioner Family; Visit Provider Nurse Practitioner Family
DX: N63.0 Unspecified lump in unspecified breast (principal); R92.8 Other abnormal and inconclusive findings on diagnostic imaging of breast
CPT/HCPCS: 76642

== ENCOUNTER → 2022-05-04 | Outpatient (CLI) | payer MEDICARE, OTHER, SELFPAY ==
--- NOTE | 2022-05-04 | BRBX_PTH ---
PATIENT: RICHY WLALACE LOC: [facility]#:[id number] AGE/SX: 66/F ROOM: RE05/04/[address]: Dr. Blu Kraus MD : 1955 BED: DIS: 05/04/2022 SPEC #: [id number] RECD: 05/04/22 15:09 STATUS: MURTAZA NAVARRO #: [id number] DANNY: 05/04/22 00:[address]: Blu Kraus DEPT: SURGICAL PATHOLOGY RECD BY: Reggie Coleman ENTERED: 05/05/22 08:45 SP TYPE: BREAST BX OTHR DR: Surinder Azul, LOADING UNIT OPERATOR POWDER CHARGING-Mitchell Tissues: Left breast, NOS Procedures: Surgery Specimen Level IV HEADER OPERATION: Ultrasound-guided left breast biopsy PRE-OP DIAGNOSIS: Left breast TISSUE SUBMITTED: Left breast ISCHEMIC TIME: <1 minute FIXATION TIME: 28.5 hours MICROSCOPIC DIAGNOSIS Left breast, ultrasound-guided core biopsy: Mild duct ectasia. No evidence of malignancy. AM:reilly 05/06/2022 MICROSCOPIC DESCRIPTION Slides are reviewed. GROSS DESCRIPTION Received in fixative is one container labeled with the patient's name and designated left breast. The specimen consists of multiple elongated fragments of warren-yellow fibroadipose tissue that in aggregate measure 2 x 1 x 0.2 cm. The entire specimen is submitted in one cassette. / SJ:reilly 05/05/2022 TC:5 CPT: 62868
--- NOTE | 2022-05-04 14:08 | US_ITS ---
STUDY: ULTRASOUND BREAST - LEFT REASON FOR EXAM: Female, 66 years old. Ultrasound guided left breast biopsy. TECHNIQUE: Axial and longitudinal images of the LEFT breast were performed with a high resolution ultrasound transducer. # OF IMAGES: 13 COMPARISON: Comparison is made with prior sonogram dated 04/21/2022. FINDINGS: LEFT Breast: Under direct sonographic guidance, the surgeon performed core biopsies of the 4 mm x 4 mm x 5 mm nodule at the 3 o''clock position of the breast at 6 cm from the nipple US/US Breast Biopsy 1st Lesion IMPRESSION: Successful ultrasound-guided biopsy of the hypoechoic nodule at the 3 o''clock position of breast at 6 cm from the nipple. ASSESSMENT CATEGORY: BIRADS Category 2: Benign. A letter regarding these results will be sent to the patient by the facility within 30 days. Electronically Signed: Flakito Hernández MD at 15:30 EST ,
--- NOTE | 2022-05-20 13:50 | PCM.OPRPT ---
Report of Operation Date of Procedure: 05/04/22 Pre-Operative Diagnosis: Left breast mass Post-Operative Diagnosis: Left breast mass Surgery/Procedure Performed:: Ultrasound-guided biopsy of left breast mass Description of Procedure: Left breast was imaged and the area of the breast of concern was localized. Next an area of skin was prepped and injected with local anesthetic and a small guevara was made with a scalpel. Under ultrasound guidance needle was placed on the mass and biopsy was performed. Next a clip was placed into the mass. Steri-Strip and bandage were placed over the incision and the patient tolerated the procedure well.
== END | disposition home or self-care (01) ==
LOC: US 14:08
PROVIDERS: PCP Nurse Practitioner Family; Referring Provider Surgery; Visit Provider Surgery
DX: N63.20 Unspecified lump in the left breast, unspecified quadrant (principal); N60.42 Mammary duct ectasia of left breast; R92.8 Other abnormal and inconclusive findings on diagnostic imaging of breast
CPT/HCPCS: 19083; 88305

== ENCOUNTER → 2022-09-01 | Outpatient (CLI) | payer MEDICARE, OTHER, SELFPAY ==
[2022-09-01 09:37] LABS: Hematocrit 40.9 % (37-47); Hemoglobin 13.3 g/dL (12.0-15.0); Mean Corp Hgb Conc 32.5 g/dL (32-36); Mean Corpuscular Hgb 29.7 pg (27.0-32.0); Mean Corpuscular Volume 91.3 fL (81-99); Mean Platelet Vol. 9.1 fl (6.2-12.0); Platelet Count 236 K/mm3 (150-450); RBC Distribution Width CV 12.9 % (11.6-14.6); RBC Distribution Width SD 42.8 fl (35.1-43.9); Red Blood Count 4.48 M/mm3 (4.2-5.4); White Blood Count 4.3 K/mm3 (4.4-11.0)
[2022-09-01 10:20] LABS: ALB/GLOB Ratio 1.1 RATIO (0.9-2.4); AST(SGOT) 17 U/L (15-37); Alanine Aminotransfer ALT/SGPT 21 U/L (13-56); Albumin, Serum 3.7 g/dL (3.2-5.0); Alkaline Phosphatase 86 U/L (45-117); Anion Gap 5 (5-15); BUN 19 mg/dL (7-18); BUN/Creat Ratio 20.2 RATIO (10-20); Calcium,Total 8.9 mg/dL (8.5-10.1); Chloride 106 mmol/L (98-107); Cholesterol 195 mg/dL (200); Creatinine, Serum 0.94 mg/dL (0.55-1.02); EST Glomerular Filtration Rate 63 mL/min (>60); Est Glom Filt Rate - Afr Amer 76 mL/min (>60); Globulin 3.5 g/dL (2.2-4.2); Glucose 95 mg/dL (74-106); High Density Lipoprotein 48 mg/dL; Potassium 3.9 mmol/L (3.5-5.1); Protein, Total 7.2 g/dL (6.4-8.2); Sodium Level 140 mmol/L (136-145); Triglycerides 104 mg/dL; Very Low Density Lipoprotein 21 mg/dL (5-40)
[2022-09-02 20:34] LABS: ANTINUCLEAR ANTIBODIES DIRECT Positive (Negative)
== END | disposition home or self-care (01) ==
LOC: LAB 08:47
PROVIDERS: PCP Nurse Practitioner Family; Referring Provider Nurse Practitioner Family; Visit Provider Nurse Practitioner Family
DX: K52.9 Noninfective gastroenteritis and colitis, unspecified (principal); K44.9 Diaphragmatic hernia without obstruction or gangrene; K21.00 Gastro-esophageal reflux disease with esophagitis, without bleeding; R10.32 Left lower quadrant pain; M25.50 Pain in unspecified joint
CPT/HCPCS: 36415; 80053; 80061; 85027; 86038

== ENCOUNTER → 2023-02-25 | Outpatient (CLI) | payer MEDICARE, OTHER, SELFPAY ==
[2023-02-25 10:13] LABS: Hematocrit 41.4 % (37-47); Hemoglobin 13.4 g/dL (12.0-15.0); Mean Corp Hgb Conc 32.4 g/dL (32-36); Mean Corpuscular Hgb 28.9 pg (27.0-32.0); Mean Corpuscular Volume 89.2 fL (81-99); Mean Platelet Vol. 9.1 fl (6.2-12.0); Platelet Count 268 K/mm3 (150-450); RBC Distribution Width CV 13.5 % (11.6-14.6); RBC Distribution Width SD 43.9 fl (35.1-43.9); Red Blood Count 4.64 M/mm3 (4.2-5.4); White Blood Count 4.3 K/mm3 (4.4-11.0)
[2023-02-25 10:41] LABS: PTHIN 73.9 pg/mL (18.4-80.1)
[2023-02-25 10:47] LABS: ALB/GLOB Ratio 1.2 RATIO (0.9-2.4); AST(SGOT) 18 U/L (15-37); Alanine Aminotransfer ALT/SGPT 26 U/L (13-56); Alkaline Phosphatase 80 U/L (45-117); Anion Gap 4 (5-15); BUN 16 mg/dL (7-18); Calcium,Total 8.9 mg/dL (8.5-10.1); Chloride 109 mmol/L (98-107); Cholesterol 194 mg/dL (200); EST Glomerular Filtration Rate 58 mL/min (>60); Est Glom Filt Rate - Afr Amer 71 mL/min (>60); Globulin 3.2 g/dL (2.2-4.2); Glucose 96 mg/dL (74-106); High Density Lipoprotein 52 mg/dL; Protein, Total 7.2 g/dL (6.4-8.2); Sodium Level 142 mmol/L (136-145); Triglycerides 119 mg/dL; Very Low Density Lipoprotein 24 mg/dL (5-40)
[2023-02-25 10:52] LABS: Vitamin D,25 Hydroxy 37.9 ng/mL
[2023-02-26 12:09] LABS: ANTINUCLEAR ANTIBODIES DIRECT Negative (Negative)
[2023-03-03 13:07] LABS: Renin, Plasma 0.379 ng/mL/hr (0.167-5.380)
== END | disposition home or self-care (01) ==
LOC: LAB 09:45
PROVIDERS: PCP Nurse Practitioner Family; Referring Provider Nurse Practitioner Family; Visit Provider Nurse Practitioner Family
DX: N18.30 Chronic kidney disease, stage 3 unspecified (principal); K52.9 Noninfective gastroenteritis and colitis, unspecified; E78.00 Pure hypercholesterolemia, unspecified; R76.8 Other specified abnormal immunological findings in serum; E55.9 Vitamin D deficiency, unspecified
CPT/HCPCS: 36415; 80053; 80061; 82306; 83970; 84244; 85027; 86038

== ENCOUNTER → 2023-04-22 | Outpatient (CLI) | payer MEDICARE, OTHER, SELFPAY ==
--- NOTE | 2023-04-22 10:17 | BI_ITS ---
MAMMOGRAPHY - BILATERAL SCREENING REASON FOR EXAM: Female, 67 years old. Routine annual screening examination. PERTINENT HISTORY: Sister with breast cancer. Grandmother with breast cancer. TECHNIQUE: Digital bilateral breast domingo (3D mammographic acquisition) in the CC and MLO projections. 2-D mediolateral oblique (MLO) and craniocaudad (CC) views of both breasts were obtained. CAD: Full Field Digital Mammography with Computer Added Detection was performed. COMPARISON: Comparison is made with prior study dated April 14, 2022 and March 21, 2021. FINDINGS: Breast Composition: There are scattered areas of fibroglandular density. Persistent nodular density in the deep slightly upper lateral portion of the left breast. It presently measures 7.7 mm x 3.9 mm. Correlation with ultrasound and then repeat biopsy is recommended. No other significant abnormalities are identified. BI/SCRN MAMM (CAD)W/DOMINGO BILAT IMPRESSION: Increase in size of the nodular density seen in the deep slightly lateral aspect of the left breast as described. It presently measures 7.7 mm x 3.9 mm. Repeat biopsy recommended. ASSESSMENT CATEGORY: BIRADS Category 4: Suspicious - Biopsy Should Be Considered. A letter regarding these results will be sent to the patient by the facility within 30 days. Approximately 10% of breast cancers are not detected by mammography. A normal mammogram should not delay biopsy of a clinically suspicious abnormality. [id number] Electronically Signed: Flakito Hernández MD at 11:20 EDT ,
== END | disposition home or self-care (01) ==
LOC: OPBI 10:15
PROVIDERS: PCP Nurse Practitioner Family; Referring Provider Nurse Practitioner Family; Visit Provider Nurse Practitioner Family
DX: Z12.31 Encounter for screening mammogram for malignant neoplasm of breast (principal); Z80.3 Family history of malignant neoplasm of breast
CPT/HCPCS: 77063; 77067

== ENCOUNTER → 2023-04-26 | Outpatient (CLI) | payer MEDICARE, OTHER, SELFPAY ==
--- NOTE | 2023-04-26 14:45 | US_ITS ---
STUDY: ULTRASOUND BREAST - LEFT REASON FOR EXAM: Female, 67 years old. Abnormal screening mammogram. TECHNIQUE: Axial and longitudinal images of the LEFT breast were performed with a high resolution ultrasound transducer. # OF IMAGES: 41 COMPARISON: Comparison is made with prior mammogram dated April 22, 2023 and prior sonogram of the left breast dated May 04, 2022. FINDINGS: LEFT Breast: This is a 3 mm x 6 mm x 5 mm hypoechoic nodule at the 3:00 position of the breast at 6 cm from the nipple. This has increased slightly in size as prior examination. There is evidence of posterior acoustical shadowing. Repeat biopsy recommended. US/Breast Limited Unilateral IMPRESSION: 3 mm x 6 mm x 5 mm hypoechoic nodule at the 3:00 position of the left breast at 6 cm from the nipple. Biopsy recommended. ASSESSMENT CATEGORY: BIRADS Category 4: Suspicious - Biopsy Should Be Considered. A letter regarding these results will be sent to the patient by the facility within 30 days. Electronically Signed: Flakito Hernández MD at 12:52 EDT ,
== END | disposition home or self-care (01) ==
LOC: OPUS 14:44
PROVIDERS: PCP Nurse Practitioner Family; Referring Provider Nurse Practitioner Family; Visit Provider Nurse Practitioner Family
DX: R92.8 Other abnormal and inconclusive findings on diagnostic imaging of breast (principal)
CPT/HCPCS: 76642

== ENCOUNTER → 2023-05-05 | Outpatient (CLI) | payer MEDICARE, OTHER, SELFPAY ==
--- NOTE | 2023-05-04 | IMM_PTH ---
PATIENT: RICHY WALLACE LOC: [facility] U#:[id number] AGE/SX: 67/F ROOM: RE05/05/[address]: Dr. Blu Kraus MD : 1955 BED: DIS: 05/05/2023 SPEC #: [id number] RECD: 05/06/23 11:44 STATUS: MURTAZA REQ #: [id number] DANNY: 05/04/23 00:[address]: Blu Kraus DEPT: IMMUNOHISTOCHEMISTRY RECD BY: Kofi Alfaro ENTERED: 05/06/23 11:45 SP TYPE: IMMUNO OTHR DR: Surinder Azul, GYNECOLOGICAL ASSISTANT-C Tissues: Left breast, NOS Procedures: CALPONIN-1 (add) CK5-6 (add) CK8 (add) E-CAD (add) HER2 GALE (add) KI-67 (add) P53 (add) SC (add) P40 (add) ER (initial) PHYSICIAN & [address] [address] SPECIMEN INFORMATION: Tissue Source: Left breast core tissue Clinical Info: Left breast density lateral aspect Specimen Number: [id number] CPT code: 39192, 75201 x 6, 42590 x3 METHODOLOGY: Deparaffinized sections of prefer/formalin-fixed tissue or PAP/DQ stained slides are incubated with monoclonal/polyclonal antibodies/oligonucleotide probes. Localization is made via biotin free immunoperoxidase method. Appropriate controls are performed and reacted as expected. Results on target cell population are indicated in the following table: RESULTS: ANTIBODY / CLONE RESULT E-Cad (ECH-6) positive CK8 (18cvbkY60) positive Calponin-1 (JO032R) negative CK5-6 (D5 & 1684) negative P40 (BC28) negative P53 (DO-7) negative, (null pattern) Ki-67 (30-9) positive, low 10% MORPHOMETRIC ANALYSIS ER (clone 6F11) 0% SC (clone 16/1E2) 0% Her-2Neu (clone CB11) 0 The prognostic test for HER2 is performed on formalin-fixed paraffin embedded tissue. A 3+ (positive) staining pattern is defined as intense, homogeneous, complete, circumferential membranous staining in >10% of contiguous tumor cells. A similar weak (2+) staining pattern is interpreted as equivocal. JOSE DAVID follow-up testing is recommended for all equivocal cases. Positivity/negativity for ER/SC is reported if > or < 1% of the tumor cells are immuno- reactive, respectively. The ASCO/CAP criteria is used for scoring. Reference: Journal of Clinical Oncology, 2013; 31:5249-1022 & 2010; 16:5419-0931. Ischemic time: Less than one hour. Duration of fixation: 8.5 Hrs; Sample Adequate: Yes. These assays have not been validated on decalcified tissues. Results should be interpreted with caution given the likelihood of false negativity on decalcified specimens or fixation greater than 72 hours. Alternative testing methods (FISH/dualISH for Her2; gene expression for ER) are recommended, if applicable. Please notify the laboratory if additional testing is required. These tests were developed and their performance characteristics determined by [facility]. They may not have been cleared or approved by the U.S. Food and Drug Administration. The FDA has determined that such clearance or approval is not necessary. The above immunohistochemical/dualISH markers are ordered and reviewed by the Pathologist. INTERPRETATION: Left breast, stereotactic core biopsy: Invasive ductal carcinoma, nuclear grade 2. Negative for estrogen receptors (unfavorable prognostic indicator). Negative for progesterone receptors (unfavorable prognostic indicator). Negative for overexpression of VWT0zsf.
--- NOTE | 2023-05-04 11:18 | BRBX_PTH ---
PATIENT: RICHY WALLACE LOC: [facility] U#:[id number] AGE/SX: 67/F ROOM: RE05/05/[address]: Dr. Blu Kraus MD : 1955 BED: DIS: 05/05/2023 SPEC #: [id number] RECD: 05/05/23 10:45 STATUS: MURTAZA REZita #: [id number] DANNY: 05/04/23 11:[address]: Blu Kraus DEPT: SURGICAL PATHOLOGY RECD BY: Constance Browne ENTERED: 05/05/23 12:49 SP TYPE: BREAST BX OTHR DR: Surinder Azul, ELECTRIC MOTOR REPAIRER-Mitchell Tissues: Breast, NOS Procedures: Surgery Specimen Level IV HEADER OPERATION: Left breast stereotactic biopsy PRE-OP DIAGNOSIS: Left breast density lateral aspect TISSUE SUBMITTED: Left breast core tissue MICROSCOPIC DIAGNOSIS Left breast, stereotactic core biopsy: Invasive ductal carcinoma, nuclear grade 2, (0.9 cm in greatest length). See comment. SJ: 05/06/2023 COMMENT Immunohistochemistry ([id number]) supports the above diagnosis. ER/KY/Hsa3wst studies are being performed on sections of tumor and the results from this study will be reported separately ([id number]). 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 MICROSCOPIC DESCRIPTION Slides are reviewed. GROSS DESCRIPTION Received in formalin is one container labeled with the patient name and designated left breast core biopsy. The specimen consists of multiple elongated fragments of warren-yellow fibroadipose tissue measuring in aggregate 4 x 3 x 0.3 cm. The specimen is totally submitted in 2 cassettes. / QUYEN:devorah 05/05/23 TC:0 Ischemic Time: 1 minute Fixation Time: 8.5 hours CPT: 36791
--- NOTE | 2023-05-05 11:04 | PCM.OPRPT ---
Report of Operation Date of Procedure: 05/05/23 Pre-Operative Diagnosis: Left breast mass Post-Operative Diagnosis: Left breast mass Surgery/Procedure Performed:: Stereotactic guided core needle biopsy of the left breast with placement of clip Type of Anesthesia: Local Specimen's removed: Left breast mass Description of Procedure: The left breast was placed into the stereotactic table and compression views were obtained. The target was identified and then stereotactically targeted. Next the skin was prepped and injected with local anesthetic. A small guevara was made with a scalpel. The needle was placed into the breast and fired and then stereotactic images confirmed that we were adjacent to the mass. Next biopsies from 9 o'clock position to 3 o'clock position were performed. The aperture was opened and a clip was placed into the biopsy cavity and the needle was removed. Stereotactic images confirmed that the clip was in the biopsy cavity. Next the incision was closed with Steri-Strip and bandage and the patient was sent for mammogram.
== END | disposition home or self-care (01) ==
LOC: BIRAD 10:20
PROVIDERS: PCP Nurse Practitioner Family; Referring Provider Surgery; Visit Provider Surgery
DX: R92.8 Other abnormal and inconclusive findings on diagnostic imaging of breast (principal)
CPT/HCPCS: 19082; 19081; 88305; 88341; 88342; J7050; A4648

== ENCOUNTER → 2023-06-07 | Outpatient (CLI) | payer MEDICARE, OTHER, SELFPAY ==
--- NOTE | 2023-06-07 11:05 | MRI_ITS ---
STUDY: BILATERAL BREAST MR WITHOUT AND WITH CONTRAST REASON FOR EXAM: Female, 67 years old. Biopsy-proven left breast cancer. TECHNIQUE: Multi-sequence multi-echo imaging of both breasts was performed with a dedicated breast coil. T1-weighted and T2-weighted images were performed before the administration of contrast. T1-weighted images were also performed after the intravenous administration of 19 mL of Clariscan contrast. COMPARISON: Left breast ultrasound dated April 26, 2023, bilateral mammogram dated April 22, 2023, left breast ultrasound dated April 29, 2022 and April 22, 2022 and bilateral mammogram dated April 14, 2022. FINDINGS: RIGHT BREAST: Scattered fibroglandular densities with minimal background enhancement. 12 mm in diameter ovoid slightly irregular enhancing mass at the 6:00 position, 5.3 cm behind the nipple and 1.9 cm inferior to the nipple. A second look ultrasound of the right breast for this lesion is recommended. LEFT BREAST: Scattered fibroglandular densities. Minimal background enhancement. Irregular enhancing mass and tissue clip marker artifact at the 3:00 to 4:00 position of the breast corresponding to the mammographic and ultrasonographic mass and measuring approximately 11 mm x 6 mm. Enhancing linear area extending from the primary mass slightly superiorly and inferiorly approximately 2 cm. The overall anterior to posterior enhancing mass is approximately 2.5 cm. No enlarged or abnormal lymph nodes. No abnormality in the visualized regions of the chest or liver. MRI/Breast Bilateral W/O and W IMPRESSION: Index lesion in the left breast as described. Linear enhancing area extending posteriorly and slightly superiorly which may represent tumor involvement. 12 mm in diameter ovoid slightly irregular enhancing mass in the 6:00 position of the right breast for which a second look ultrasound is recommended. CATEGORY: BIRADS Category 0: Incomplete. Need additional imaging evaluation. A letter regarding these results will be sent to the patient by the facility within 30 days. Electronically Signed: Judah Carrillo MD at 13:18 EST ,
[2023-06-07 11:56] LABS: CREATININE FINGERSTICK < 1.0 mg/dL (0.55-1.02); EGFR FINGERSTICK > 60.0000 mL/min (>60)
== END | disposition home or self-care (01) ==
LOC: MRI 10:51
PROVIDERS: PCP Nurse Practitioner Family; Referring Provider Internal Medicine Medical Oncology; Visit Provider Internal Medicine Medical Oncology
DX: C50.912 Malignant neoplasm of unspecified site of left female breast (principal)
CPT/HCPCS: 77049; A9575; A4216; C8908

== ENCOUNTER → 2023-06-09 | Outpatient (CLI) | payer MEDICARE, OTHER, SELFPAY ==
--- NOTE | 2023-06-09 10:39 | ECHODONC_ITS ---
Reason For Study: INFECTION Procedure This was a 2D Doppler, Color Flow transthoracic echocardiogram. Exam performed in department. Left Ventricle Normal LV size. Left ventricular systolic function is normal. The estimated ejection fraction is 58 %. No regional wall motion abnormalities noted. Right Ventricle Normal RV size. Normal systolic function. Atria Normal left atrium. Normal right atrium. Mitral Valve Normal mitral valve. Tricuspid Valve Normal tricuspid valve. Mild (1+) tricuspid valve insufficiency. Pulmonary artery systolic pressure is 28 mmHg. Aortic Valve Normal aortic valve. Trisinus/trileaflet aortic valve. Pulmonic Valve Normal pulmonic valve. Great Vessels Normal aortic root. The pulmonary artery is normal size. Normal inferior vena cava. Pericardium/Pleural No pericardial effusion. MMode/2D Measurements & Calculations LVIDd: 4.2 cm IVSd: 1.1 cm Ao root diam: 3.1 cm LVIDs: 3.0 cm LVPWd: 1.1 cm RVDd: 3.1 cm FS: 29.3 % LAV(MOD-bp): 54.9 ml LVAd ap4: 26.4 cm2 SV(MOD-sp4): 45.9 ml LAV(MOD-bp) Indexed: 28.1 ml/m2 LVLd ap4: 7.4 cm LAV(MOD-sp2): 45.8 ml EDV(MOD-sp4): 80.4 ml LAV(MOD-sp4): 57.1 ml EDV(sp4-el): 80.2 ml LVAs ap4: 16.0 cm2 LVLs ap4: 6.4 cm ESV(MOD-sp4): 34.5 ml ESV(sp4-el): 33.8 ml EF(MOD-sp4): 57.1 % EF(sp4-el): 57.8 % SV(sp4-el): 46.3 ml LA A4 area: 20.2 cm2 LA dimension(2D): 3.8 cm RA A4 area: 10.5 cm2 TAPSE: 1.8 cm Time Measurements MV dec time: 0.21 sec Doppler Measurements & Calculations MV E max julian: 81.2 cm/sec Lat Peak E' Julian: 13.6 cm/sec Med Peak E' Julian: 5.5 cm/sec MV A max julian: 80.6 cm/sec E/E' lat: 6.0 E/E' med: 14.8 MV E/A: 1.0 MV V2 max: 96.5 cm/sec Ao V2 max: 117.2 cm/sec MV max P.7 mmHg MV dec slope: 388.8 cm/sec2 Ao max P.5 mmHg MV V2 mean: 64.9 cm/sec Ao V2 mean: 84.5 cm/sec MV mean P.8 mmHg Ao mean P.2 mmHg MV V2 VTI: 38.0 cm Ao V2 VTI: 30.8 cm AV (velocity ratio): 0.74 LV V1 max: 90.3 cm/sec PA V2 max: 100.8 cm/sec TR max julian: 246.0 cm/sec LV V1 max P.3 mmHg PA V2 mean: 71.1 cm/sec TR max P.2 mmHg LV V1 mean P.9 mmHg LV V1 mean: 65.1 cm/sec LV V1 VTI: 22.6 cm ECHO/ONC Echo Complete Interpretation Summary Normal LV size. Left ventricular systolic function is normal. The estimated ejection fraction is 58 %. Pulmonary artery systolic pressure is 28 mmHg. The global longitudinal strain is normal. The global longitudinal strain = -18. 9 % (normal). Ordering Physician: Romain Griffin Referring Physician: CHIQUIS QUINTERO Performed By: Roxie Clarke RCS
== END | disposition home or self-care (01) ==
LOC: CVS 10:38
PROVIDERS: PCP Nurse Practitioner Family; Visit Provider Internal Medicine Medical Oncology
DX: T81.49XA Infection following a procedure, other surgical site, initial encounter (principal)
CPT/HCPCS: 93306; 93356

== ENCOUNTER → 2023-06-18 | Outpatient (CLI) | payer MEDICARE, OTHER, SELFPAY ==
--- NOTE | 2023-06-18 10:50 | US_ITS ---
STUDY: ULTRASOUND BREAST - RIGHT REASON FOR EXAM: Female, 67 years old. Abnormal MRI scan. TECHNIQUE: Axial and longitudinal images of the RIGHT breast were performed with a high resolution ultrasound transducer. # OF IMAGES: 32 COMPARISON: Comparison is made with prior MRI of the breast dated June 07, 2023. FINDINGS: RIGHT Breast: There is a 6 mm x 4 mm x 8 mm hypoechoic irregular appearing nodule at the 5 to 6:00 position in the breast at 3 cm from the nipple. Biopsy recommended. Dilated retroareolar ducts. US/Breast Limited Unilateral IMPRESSION: 6 mm x 4 mm x 8 mm hypoechoic irregular nodule at the 5 to 6:00 position of the breast at 3 7 cm from the nipple. Biopsy recommended. ASSESSMENT CATEGORY: BIRADS Category 4: Suspicious - Biopsy Should Be Considered. A letter regarding these results will be sent to the patient by the facility within 30 days. Electronically Signed: Flakito Hernández MD at 13:43 EST ,
== END | disposition home or self-care (01) ==
LOC: OPUS 10:49
PROVIDERS: PCP Nurse Practitioner Family; Referring Provider Surgery; Visit Provider Surgery
DX: R92.8 Other abnormal and inconclusive findings on diagnostic imaging of breast (principal)
CPT/HCPCS: 76642

== ENCOUNTER → 2023-06-25 | Outpatient (CLI) | payer MEDICARE, OTHER, SELFPAY ==
--- NOTE | 2023-06-25 | IMM_PTH ---
PATHOLOGY RESULTS PATIENT: RICHY WALLACE LOC: [facility] U#:[id number] AGE/SX: 67/F ROOM: RE06/25/[address]: Dr. Blu Kraus MD : 1955 BED: DIS: 06/25/2023 SPEC #: [id number] RECD: 06/30/23 14:36 STATUS: MURTAZA REQ #: [id number] DANNY: 06/25/23 00:[address]: Blu Kraus DEPT: IMMUNOHISTOCHEMISTRY RECD BY: Linda Wade ENTERED: 06/30/23 14:37 SP TYPE: IMMUNO OTHR DR: Surinder Azul, FROZEN FOOD DEPARTMENT MANAGER-C Tissues: Right breast, NOS Procedures: CALPONIN-1 (add) CK8 (add) E-CAD (add) HER2 GALE (add) NY (add) P40 (add) ER (initial) PHYSICIAN & INSTITUTION [place] [id number] SPECIMEN INFORMATION: Tissue Source: Right breast Clinical Info: Right breast mass Specimen Number: [id number] CPT code: 72503, 09376 x3, 28351 x3 METHODOLOGY: Deparaffinized sections of prefer/formalin-fixed tissue or PAP/DQ stained slides are incubated with monoclonal/polyclonal antibodies/oligonucleotide probes. Localization is made via biotin free immunoperoxidase method. Appropriate controls are performed and reacted as expected. Results on target cell population are indicated in the following table: RESULTS: ANTIBODY / CLONE RESULT E-Cad (ECH-6) positive CK8 (42bvvnG37) positive Calponin-1 (XA077F) positive, focal P40 (BC28) positive, focal MORPHOMETRIC ANALYSIS ER (clone 6F11) positive, >95%, strong intensity NY (clone 16/1E2) positive, >95%, strong intensity Her-2Neu (clone CB11) negative (0) The prognostic test for HER2 is performed on formalin-fixed paraffin embedded tissue. A 3+ (positive) staining pattern is defined as intense, homogeneous, complete, circumferential membranous staining in >10% of contiguous tumor cells. A similar weak (2+) staining pattern is interpreted as equivocal. JOSE DAVID follow-up testing is recommended for all equivocal cases. Positivity/negativity for ER/NY is reported if > or < 1% of the tumor cells are immuno- reactive, respectively. The ASCO/CAP criteria is used for scoring. Reference: Journal of Clinical Oncology, 2013; 31:4722-7590 & 2010; 16:7004-8043. Ischemic time: Less than one hour. Duration of fixation: 102 Hrs; Sample Adequate: Yes. These assays have not been validated on decalcified tissues. Results should be interpreted with caution given the likelihood of false negativity on decalcified specimens or fixation greater than 72 hours. Alternative testing methods (FISH/dualISH for Her2; gene expression for ER) are recommended, if applicable. Please notify the laboratory if additional testing is required. These tests were developed and their performance characteristics determined by [facility]. They may not have been cleared or approved by the U.S. Food and Drug Administration. The FDA has determined that such clearance or approval is not necessary. The above immunohistochemical/dualISH markers are ordered and reviewed by the Pathologist. INTERPRETATION: Right breast, core biopsy: Intraductal papilloma with atypia and focal area of intraductal papillary carcinoma. See comment. 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 Case has been reviewed in consultation with Dr. Lee who concurs with the above diagnosis. IDC:AM
--- NOTE | 2023-06-25 12:34 | BRBX_PTH ---
PATHOLOGY RESULTS PATIENT: RICHY WALLACE LOC: [facility] U#:[id number] AGE/SX: 67/F ROOM: RE06/25/[address]: Dr. Blu Kraus MD : 1955 BED: DIS: 06/25/2023 SPEC #: [id number] RECD: 06/29/23 07:44 STATUS: MURTAZA RAMON #: [id number] DANNY: 06/25/23 12:[address]: Blu Kraus DEPT: SURGICAL PATHOLOGY RECD BY: Constance Browne ENTERED: 06/29/23 07:44 SP TYPE: BREAST BX OTHR DR: Surinder Azul, AUTOMOTIVE PORTER-Mitchell Tissues: Right breast, NOS Procedures: Surgery Specimen Level IV HEADER OPERATION: Right breast biopsy PRE-OP DIAGNOSIS: Right breast mass TISSUE SUBMITTED: Right breast tissue MICROSCOPIC DIAGNOSIS Right breast, core biopsy: Intraductal papilloma with extensive atypia and focal area of papillary intraductal carcinoma. See comment. QUYEN:reilly 06/30/2023 COMMENT Immunohistochemistry ([id number]) supports the above diagnosis. ER/AZ/Jov0vwi studies are being performed on sections of tumor and the results from this study will be reported separately ([id number]). 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 Please make reference to previous specimen ([id number]), left breast, stereotactic core biopsy with diagnosis of invasive ductal carcinoma. Case has been reviewed in consultation with Dr. Lee who concurs with the above diagnosis. IDC:AM MICROSCOPIC DESCRIPTION Slides are reviewed. GROSS DESCRIPTION Received in fixative is one container labeled with the patient's name and designated right breast. The specimen consists of multiple elongated fragments of warren-yellow fibroadipose tissue that in aggregate measure 1.0 x 0.5 x 0.1 cm. The entire specimen is submitted in one cassette. / SJ:reilly 06/29/2023 TC:0 Ischemic Time: 1 minute Fixation Time: 102 hours CPT: 74163
== END | disposition home or self-care (01) ==
PROVIDERS: PCP Nurse Practitioner Family; Referring Provider Surgery; Visit Provider Surgery
DX: N63.10 Unspecified lump in the right breast, unspecified quadrant (principal)
CPT/HCPCS: 88305; 88341; 88342

== ENCOUNTER 2023-07-22 16:46 | Observation (INO) | payer MEDICARE, OTHER, SELFPAY ==
[2023-07-20 10:30] LABS: Absolute Neutrophil Count 2.6 X10^3/uL (2.0-7.7); Basophil# 0.04 X10^3/uL; Eosinophil# 0.09 X10^3/uL; Eosinophils% 2.2 % (0-5); Hematocrit 40.2 % (37-47); Hemoglobin 12.9 g/dL (12.0-15.0); Mean Corp Hgb Conc 32.1 g/dL (32-36); Mean Corpuscular Hgb 29.3 pg (27.0-32.0); Mean Corpuscular Volume 91.2 fL (81-99); Mean Platelet Vol. 8.8 fl (6.2-12.0); Monocyte# 0.44 X10^3/uL; Monocyte% 10.7 % (0-10); NRBC Flagged by Analyzer 0 % (0-5); Neutrophil # 2.62 X10^3/uL (2.7-7.7); Neutrophil % 63.9 % (47-70); Platelet Count 259 K/mm3 (150-450); RBC Distribution Width CV 12.7 % (11.6-14.6); RBC Distribution Width SD 41.8 fl (35.1-43.9); Red Blood Count 4.41 M/mm3 (4.2-5.4); White Blood Count 4.1 K/mm3 (4.4-11.0)
[2023-07-20 10:55] LABS: ALB/GLOB Ratio 1.2 RATIO (0.9-2.4); AST(SGOT) 16 U/L (15-37); Alanine Aminotransfer ALT/SGPT 20 U/L (13-56); Albumin, Serum 3.7 g/dL (3.2-5.0); Alkaline Phosphatase 78 U/L (45-117); Anion Gap 5 (5-15); BUN 21 mg/dL (7-18); BUN/Creat Ratio 22.4 RATIO (10-20); Calcium,Total 8.7 mg/dL (8.5-10.1); Chloride 108 mmol/L (98-107); Creatinine, Serum 0.94 mg/dL (0.55-1.02); EST Glomerular Filtration Rate 63 mL/min (>60); Est Glom Filt Rate - Afr Amer 76 mL/min (>60); Globulin 3.2 g/dL (2.2-4.2); Glucose 95 mg/dL (74-106); LDH 186 U/L (84-246); Protein, Total 6.9 g/dL (6.4-8.2); Sodium Level 139 mmol/L (136-145)
[2023-07-22] VITALS (10 sets, daily range): BP systolic 123–175; BP diastolic 60–90; PULSE 63–88; RESP 16–18; TEMP 36.3–37; O2SAT 90–98; BMI 35.5
--- NOTE | 2023-07-22 | AXNB_PTH ---
PATHOLOGY RESULTS PATIENT: RICHY WALLACE LOC: [facility] U#:[id number] AGE/SX: 67/F ROOM: [facility] RE07/22/[address]: Dr. Blu Kraus MD : 1955 BED: 1 DIS: 07/23/2023 SPEC #: [id number] RECD: 07/22/23 12:52 STATUS: MURTAZA RAMON #: [id number] DANNY: 07/22/23 00:[address]: Blu Kraus DEPT: SURGICAL PATHOLOGY RECD BY: Linda Wade ENTERED: 07/22/23 13:57 SP TYPE: AX NODE BX OTHR DR: Surinder Azul, LICENSED GUIDE-C Tissues: Axillary lymph node, NOS Left breast, NOS Axilla, NOS Axillary lymph node, NOS Axillary lymph node, NOS Right breast, NOS Right breast, NOS Procedures: Frozen Section (charge) Frozen Section Add'l ([facility]) Surgery Specimen Level IV Surgery Specimen Level V HEADER OPERATION: Bilateral partial mastectomies with bilateral stereo wire loc PRE-OP DIAGNOSIS: Left breast triple negative breast cancer, right breast intraductal carcinoma TISSUE SUBMITTED: A - Left axillary sentinel node, frozen section, B - Left breast mass, long stitch - lateral, short stitch - superior, C - Left axillary contents, D - Right axillary sentinel node, frozen section, E - Additional right axillary sentinel nose, frozen section, F - Right breast mass, long stitch - lateral, short stitch - superior, G - Posterior margin right breast, stitch bedoya new margin FROZEN SECTION DIAGNOSIS A. Left axillary sentinel lymph nodes, biopsy: One out of three lymph nodes positive for metastatic carcinoma. D. Right axillary sentinel lymph nodes, biopsy: Two out of two lymph nodes, negative for metastatic carcinoma. E. Right axillary sentinel lymph nodes, biopsy: Three out of three lymph nodes, negative for metastatic carcinoma. SJ:reilly 07/22/2023 MICROSCOPIC DIAGNOSIS A. Left axillary sentinel lymph nodes, biopsy: Two out of three lymph nodes positive for macrometastatic carcinoma. Note: The largest focus of metastatic carcinoma measures 2.5 cm in greatest dimension. B. Left breast mass, lumpectomy: Invasive ductal carcinoma. See synoptic report below. C. Left axillary contents, regional lymphadenectomy: Two out of eight lymph nodes positive for macrometastatic carcinoma. D. Right axillary sentinel lymph nodes, biopsy: Two out of two lymph nodes, negative for carcinoma. E. Right axillary sentinel lymph nodes, biopsy: Three out of three lymph nodes, negative for carcinoma. F. Right breast mass, lumpectomy: Intraductal carcinoma with papillary and cribriform pattern. See synoptic report below. G. Right breast posterior margin, excision: Focal intraductal hyperplasia without atypia. Focal involutional change. Fibrocystic change. AM:reilly 07/28/2023 COMMENT A, C-E - Immunohistochemistry ([id number]) supports the above diagnosis. B. INVASIVE BREAST CANCER SUMMARY: Procedure - excision with wire guidance Specimen: Type - partial breast Size - 6.0 x 6.0 x 2.0 cm Laterality - left Tumor: Size - 1.5 x 1.0 x 0.8 cm Histologic type - invasive ductal carcinoma. Focality - single focus of carcinoma. Histologic Grade (Shalom grade): Glandular/tubular differentiation - score 3 Nuclear pleomorphism - score 2 Mitotic count - score 1 Overall grade - 2 (score of 6) Ductal carcinoma in situ: Present Estimated quantification (% of tumor volume) - 20% of total tumor volume Number of blocks - 3 of 12 blocks Architectural patterns - cribriform Nuclear grade - grade2 Necrosis - focally present Lobular carcinoma in situ (LCIS) - not present Tumor extension: Skin - not applicable Nipple - not applicable Skeletal muscle - not present Margins: Distance of invasive carcinoma from closest margin - 3.0 mm from anterior margin. Distance of ductal carcinoma in situ from closest margin - 4.0 mm from anterior margin. Lymph nodes: Number of sentinel lymph nodes examined - 3 (specimens A) Total number of lymph nodes examined (sentinel and nonsentinel) - 11 Number of lymph nodes with macrometastases - 4 No evidence of micrometastases or isolated tumor cells. Size of largest metastatic deposit (if present) - 2.5 cm (specimen A) Extranodal extension - present, 1 focus (4.0 mm) Treatment effect - Unknown Lymphvascular invasion - not identified Additional pathologic findings - Intraductal hyperplasia, fibrocystic change & changes of previous biopsy. Ancillary studies - previously performed on section of tumor ([id number] / [id number]). ER - negative (0%) RI - negative (0%) Her2 key - negative (0) Ki67 - positive (10%) Microcalcifications - present, focal Clinical history - mass of left breast. PATHOLOGIC STAGE: pT1c N2a Mx F. DUCTAL CARCINOMA IN SITU SUMMARY: Procedure - lumpectomy Specimen: Type - partial breast Laterality - right breast Size (extent of DCIS): Estimated size (extent) - 0.4 x 0.3 x 0.3 cm Number of blocks involved- 2/13 Architectural pattern - papillary and cribriform Nuclear grade - 1/3 Necrosis - not present Margin - Margins uninvolved by carcinoma. Distance from closest margin - 5.0 mm from posterior margin. Regional lymph nodes - See specimens D & E Microcalcifications - not identified Additional Pathologic Findings - intraductal papilloma, usual intraductal hyperplasia with focal atypical intraductal hyperplasia and fibrocystic change. Ancillary Studies from previous specimen (S24-3 / [id number]): ER - positive, >95%, strong intensity RI - positive, >95%, strong intensity Her2 key (IHC) - negative (0) The above summary is in compliance with [employer] (CAP) Cancer Protocols Checklist and [place] Joint Committee on Cancer (AJCC), Staging Manual, 8th Ed. Case has been reviewed in consultation with Dr. Figueroa who concurs with the above diagnosis. IDC:SJ MICROSCOPIC DESCRIPTION Slides are reviewed. GROSS DESCRIPTION A - Received fresh for frozen section diagnosis labeled with the patient's name is a specimen designated left axillary sentinel lymph node. The specimen consists of three pieces of warren-yellow adipose tissue containing three nodules measuring in aggregate 3.5 x 3.0 x 1.5 cm and 1.2 to 2.5 cm in greatest dimension. Sections of the largest lymph node reveal warren, solid cut surfaces with gross involvement by tumor. The lymph nodes are submitted in entirety. The entire specimen is submitted in five cassettes as follows: 1 - frozen section, one bisected lymph node, 2 - frozen section, one bisected lymph node, 3??frozen section, sales representative livestock section from the largest lymph node, 4 & 5 - rest of the largest lymph node. / SJ: 07/22/2023 B - Received in fixative is one container labeled with the patient's name and designated left breast mass, long stitch - lateral, short stitch - superior. The specimen consists of a piece of warren-yellow fibroadipose tissue with needle localization measuring 6.0 x 6.0 x 2.0 cm. The specimen is oriented by two sutures, long stitch - lateral, short stitch - superior. The specimen is inked as follows: anterior - yellow, posterior - black, superior - blue, inferior - green, medial - red and lateral - orange. Serial sections reveal a warren, indurated mass measuring 1.5 x 1.0 x 0.8 cm. This mass is 0.3 cm away from the closest anterior margin. This information is conveyed to the surgeon intraoperatively. Sections of the rest of the specimen reveal warren-yellow adipose cut surfaces with warren-white fibrous areas. Airways Control Specialist sections are submitted in 12 cassettes as follows: 1 - perpendicular medial, lateral and inferior margins, 2??perpendicular superior and posterior margins, 3 - closest anterior margin, 4-7 - entire tumor, 812??Airways Control Specialist sections adjacent to and away from the tumor. / SJ: 07/23/2023 C - Received in fixative is one container labeled with the patient's name and designated left axillary contents. The specimen consists of multiple pieces of warren-yellow adipose tissue containing multiple nodules measuring in aggregate 6.0 x 6.0 x 1.5 cm. The largest nodule measures 2.5 cm in greatest dimension. The lymph nodes are submitted in entirely. Sections are submitted in five cassettes as follows: 1-4 - each cassette containing one bisected lymph node, 5 - multiple lymph nodes. / SJ: 07/23/2023 D - Received fresh for frozen section diagnosis labeled with the patient's name is a specimen designated right axillary sentinel lymph node. The specimen consists of a piece of adipose tissue containing nodules consistent with lymph nodes measuring 3.5 x 3.5 x 1.0 cm. Two lymph nodes are identified measuring 1.5 and 2.5 cm in greatest dimension. The entire specimen is submitted for frozen section diagnosis in three cassettes as follows: 1 & 2 - one lymph node, 3 - one bisected lymph node. / SJ: 07/22/2023 E - Received fresh for frozen section diagnosis labeled with the patient's name is a specimen designated right axillary sentinel lymph node (additional). The specimen consists of a piece of adipose tissue containing nodule consistent with lymph node measuring 3.5 x 2.0 x 1.0 cm. Three nodules consistent with lymph nodes are identified measuring 0.3 to 1.0 cm in greatest dimension. The entire specimen is submitted for frozen section diagnosis in three cassette as follows: 1 - frozen section, one lymph node, 2??frozen section, one bisected lymph node, 3 - frozen section, one bisected lymph node. / SJ: 07/22/2023 F - Received fresh for OR consultation labeled with the patient's name is a specimen designated right breast mass. The specimen consists of an oriented fragment of warren-yellow fibrofatty tissue measuring 7.0 x 5.5 x 2.0 cm and weighing 27 gm. The specimen contains a metallic wire. The specimen is differentially inked as follows: anterior - yellow, posterior - black, superior - blue, inferior - green, medial - red and lateral - orange. Serial sections reveal a firm, spiculated 4.0 mm nodule located 5.0 mm from its closest (posterior) margin of resection. The proximity of the lesion to the closest margin is conveyed to the surgeon intraoperatively. Airways Control Specialist sections are submitted in 13 cassettes as follows: 13??perpendicular inked margins, 4 - spiculated nodule, 5-13 - sales representative livestock sections of uninvolved parenchyma adjacent to and away from lesion. Note, sections are submitted after additional fixation. / AM: 07/23/2023 G - Received fresh and post fixed in formalin is one container labeled with the patient's name and designated posterior margin right breast. The specimen consists of a piece of fibroadipose tissue measuring 5.0 x 4.0 x 1.0 cm. The specimen is oriented as follows: stitch bedoya new margin. Old margin is inked blue and new margin is inked black. Sections reveal focal fibrous area. No mass lesion is identified. The entire fibrous area is submitted. Airways Control Specialist sections are submitted in six cassettes. / SJ:reilly 07/23/2023 TC:0 CPT: 05417 x6, 62649, 42997 x3, 75102 x8,78140s0
--- NOTE | 2023-07-22 | IMM_PTH ---
PATHOLOGY RESULTS PATIENT: RICHY WALLCAE LOC: MS3 U#:[id number] AGE/SX: 67/F ROOM: [facility] RE07/22/[address]: Dr. Blu Kraus MD : 1955 BED: 1 DIS: 07/23/2023 SPEC #: [id number] RECD: 07/27/23 12:47 STATUS: MURTAZA RAMON #: [id number] DANNY: 07/22/23 00:[address]: Blu Kraus DEPT: IMMUNOHISTOCHEMISTRY RECD BY: Linda Wade ENTERED: 07/27/23 12:50 SP TYPE: IMMUNO OTHR DR: Surinder Azul, SECTION PLOTTER OPERATOR-C Tissues: Axillary lymph node, NOS Axilla, NOS Axillary lymph node, NOS Axillary lymph node, NOS Procedures: CK8 (add) Pankeratin (initial) Pankeratin (add) PHYSICIAN & INSTITUTION [place] [id number] SPECIMEN INFORMATION: Tissue Source: A - Left axillary sentinel lymph nodes, C - Left axillary contents, D - Right axillary sentinel lymph nodes, E - Right axillary sentinel lymph nodes Clinical Info: Left breast triple negative breast cancer, right breast intraductal carcinoma Specimen Number: [id number] A1, A2, C1, C2, C4, C5, D1-D3, E1-E3 CPT code: 87229 x4, 60922 x22 METHODOLOGY: Deparaffinized sections of prefer/formalin-fixed tissue or PAP/DQ stained slides are incubated with monoclonal/polyclonal antibodies/oligonucleotide probes. Localization is made via biotin free immunoperoxidase method. Appropriate controls are performed and reacted as expected. Results on target cell population are indicated in the following table: RESULTS: ANTIBODY / CLONE RESULT Block A1 CK8 (78gjpbV55) positive AE1-3 (AE1/AE3/PCK26) positive Block A2 CK8 (77btcgU08) negative AE1-3 (AE1/AE3/PCK26) negative Block C1 CK8 (82ggwiB27) negative AE1-3 (AE1/AE3/PCK26) negative Block C2 CK8 (92rvrvO16) negative AE1-3 (AE1/AE3/PCK26) negative Block C4 CK8 (29bdmuY16) positive AE1-3 (AE1/AE3/PCK26) positive Block C5 CK8 (72fcqaK34) negative AE1-3 (AE1/AE3/PCK26) negative Block D1 CK8 (37feubN84) negative AE1-3 (AE1/AE3/PCK26) negative Block D2 CK8 (13joqxZ25) negative AE1-3 (AE1/AE3/PCK26) negative Block D3 CK8 (48zgwgG39) negative AE1-3 (AE1/AE3/PCK26) negative Block E1 CK8 (22vnbgH95) negative AE1-3 (AE1/AE3/PCK26) negative Block E2 CK8 (26ubqfI64) negative AE1-3 (AE1/AE3/PCK26) negative Block E3 CK8 (65wiefE99) negative AE1-3 (AE1/AE3/PCK26) negative These tests were developed and their performance characteristics determined by [facility]. They may not have been cleared or approved by the U.S. Food and Drug Administration. The FDA has determined that such clearance or approval is not necessary. The above immunohistochemical/dualISH markers are ordered and reviewed by the Pathologist. INTERPRETATION: A. Left axillary sentinel lymph nodes, biopsy: One out of three lymph nodes, positive for macrometastatic carcinoma. C. Left axillary contents: Two out of eight lymph nodes, positive for macrometastatic carcinoma. D. Right axillary sentinel lymph nodes, biopsy: Two out of two lymph nodes with no pathologic change, E. Right axillary sentinel lymph nodes, biopsy: Three out of three lymph nodes, negative for carcinoma. AM:reilly 07/28/2023
--- NOTE | 2023-07-22 07:41 | NM_ITS ---
PROCEDURE: NUCLEAR MEDICINE Injection [place] Node - RIGHT breast(s). REASON FOR EXAM: Female, 67 years old. Right breast cancer. TECHNIQUE: [place] node localization using radionuclide methods of the RIGHT breast(s) was performed following subcutaneous administration of 1.1 mCi of of sulfur colloid Tc-99m. COMPARISON STUDIES : NM - None. CR - Not available for review at this time. CT - Not available for review at this time. MR - Not available for review at this time. US - Not available for review at this time. FINDINGS: 1.1 mCi of technetium labeled sulfur colloid was injected subcutaneously in the right periareolar region. NM/Lymph Node Injection Only IMPRESSION: 1.1 mCi of technetium labeled sulfur colloid was injected subcutaneously in 4 equal aliquots in the right periareolar region for sentinel node imaging. Electronically Signed: Flakito Hernández MD at 8:52 EST ,
--- NOTE | 2023-07-22 07:41 | NM_ITS ---
PROCEDURE: NUCLEAR MEDICINE Injection [place] Node - LEFT breast(s). REASON FOR EXAM: Female, 67 years old. Left breast cancer. TECHNIQUE: [place] node localization using radionuclide methods of the LEFT breast(s) was performed following subcutaneous administration of 1.1 mCi of of sulfur colloid Tc-99m. COMPARISON STUDIES : NM - None. CR - Not available for review at this time. CT - Not available for review at this time. MR - Not available for review at this time. US - Not available for review at this time. FINDINGS: 1.1 mCi of technetium sulfur colloid was injected in the periareolar region of the left breast subcutaneously. NM/Lymph Node Injection Only IMPRESSION: Subcutaneous injection of 1.1 mCi of technetium labeled sulfur colloid in 4 equal aliquots in the left periareolar region. Electronically Signed: Flakito Hernández MD at 8:51 EST ,
[2023-07-22] MEDS: Lactated Ringers 1,000 ML 15 ML IV (08:31)
--- NOTE | 2023-07-22 10:57 | PCM.HP.STD ---
HPI - General HPI Narrative RICHY WALLACE, is a 67 F who presents for elective surgery today. The patient has bilateral breast cancer. Patient is here for bilateral partial mastectomy and bilateral sentinel axillary lymph node biopsy. [facility] Medical History (Updated 07/22/23 @ 10:[address] Blu Kraus MD) Abdominal pain Abnormal mammogram of left breast Abnormal MRI, breast Arthritis Cancer Gastric reflux Hemorrhoids History of echocardiogram History of edema History of hiatal hernia Left breast mass Non-smoker Post-menopausal Triple negative breast cancer Wears glasses Home Medications acetaminophen 325 mg tablet (Tylenol) 1,000 mg (3.0769 x 325 mg) PO Q8H PRN Fever, headache, pain 07/24/18 [Rx Last Taken Unknown] cholecalciferol (vitamin D3) 25 mcg (1,000 unit) capsule 25 mcg PO DAILY 05/17/23 [History Last Taken Unknown] multivitamin 1 tab PO DAILY 05/17/23 [History Last Taken Unknown] nabumetone 500 mg tablet 500 mg PO BID 05/17/23 [History Last Taken Unknown] pantoprazole 40 mg tablet,delayed release 40 mg PO DAILY 05/17/23 [History Last Taken 07/22/23 06:30] BALANCE OF NATURE FRUITS 3 tab PO DAILY 07/14/23 [History Last Taken Unknown] BALANCE OF NATURE VEGETABLES 3 tab PO DAILY 07/14/23 [History Last Taken Unknown] Allergy/AdvReac Type Severity Reaction Status Date / Time No Known Allergies Allergy Verified 07/22/23 08:10 Family History Mother Breast cancer Diabetes Grandmother Breast cancer Sister Breast cancer Father Cancer Prostate and metastatic bone Heart disease Surgical History (Updated 07/14/23 @ 09:50 by Sharri Fisher) H/O: hysterectomy History of foot surgery Total knee replacement status Social History Smoking Status: Never smoker alcohol intake: never ROS Constitutional Constitutional: Reports systems reviewed and no addt'l complaints, except as documented Eyes Eyes: Reports systems reviewed and no addt'l complaints, except as documented ENT HEENT: Reports systems reviewed and no addt'l complaints, except as documented Cardiovascular Cardiovascular: Reports systems reviewed and no addt'l complaints, except as documented Respiratory/Chest Respiratory/Chest: Reports systems reviewed and no addt'l complaints, except as documented Gastrointestinal Gastrointestinal: Reports systems reviewed and no addt'l complaints, except as documented Genitourinary Genitourinary: Reports systems reviewed and no addt'l complaints, except as documented Musculoskeletal Musculoskeletal: Reports systems reviewed and no addt'l complaints, except as documented Integumentary Integumentary: Reports systems reviewed and no addt'l complaints, except as documented Neurologic Neurologic: Reports systems reviewed and no addt'l complaints, except as documented Psychiatric Psychiatric: Reports systems reviewed and no addt'l complaints, except as documented Endocrine Endocrinology: Reports systems reviewed and no addt'l complaints, except as documented Hematologic/Lymphatic Hematologic/Lymphatic: Reports systems reviewed and no addt'l complaints, except as documented Allergic/Immunologic Allergic/Immunologic: Reports systems reviewed and no addt'l complaints, except as documented Vital Signs Vital Signs Vital Signs: 07/22/23 08:11 07/22/23 08:11 Temperature 98.6 F Temperature Source Temporal Pulse Rate 76 Respiratory Rate 16 Respiratory Pattern Normal Blood Pressure 175/84 H Blood Pressure Mean 114 Blood Pressure Source Monitor Blood Pressure Position Semi-Fowlers Blood Pressure Location Left Arm Pulse Ox 98 Oxygen Delivery Method Room Air Weight Weight: 200 lb 9.93 oz Body Mass Index (BMI) 35.5 Physical Exam Const oriented x3 and no apparent distress Resp normal respiratory effort and clear to auscultation bilaterally Cardio regular rate and regular rhythm GI soft to palpation and non-tender Results Lab / Micro Data 07/20/23 10:04 07/20/23 10:04 Imagaing Radiology Impression [facility] Node 07/22/23 07:41 IMPRESSION: Subcutaneous injection of 1.1 mCi of technetium labeled sulfur colloid in 4 equal aliquots in the left periareolar region. Electronically Signed: Flakito Hernández MD at 8:51 EST , [facility] Node 07/22/23 07:41 IMPRESSION: 1.1 mCi of technetium labeled sulfur colloid was injected subcutaneously in 4 equal aliquots in the right periareolar region for sentinel node imaging. Electronically Signed: Flakito Hernández MD at 8:52 EST , Assessment & Plan Assessment/Plan (1) Bilateral breast cancer: QUALIFIERS: Breast location: overlapping sites of breast Estrogen receptor status: unspecified Patient sex: female Qualified Code(s): C50.811 - Malignant neoplasm of overlapping sites of right female breast; C50.812 - Malignant neoplasm of overlapping sites of left female breast PLAN: The patient has a triple negative breast cancer on the left and in workup of this she had an MRI which showed a breast mass on the right. The breast mass on the right was biopsied and this came back as an intraductal carcinoma which was ER/AK positive. I discussed performing bilateral partial mastectomies and bilateral sentinel lymph node biopsies with the patient. I also discussed bilateral wire localization and stereotactic. I discussed the procedure in detail as well as the risks including but not limited to bleeding, infection, injury other organs, positive margins need for further surgery, need for axillary dissection or further axillary surgery. Patient understands all the risks and is willing to proceed. As it is a bilateral case I will keep her overnight for observation. All patient's questions were answered and the patient understands and agrees to proceed. Blu Kraus MD Pager: [facility] [address] [place] [address], [address] [place] [address] Office:
[2023-07-22] MEDS: Cefazolin 2 GM in 0.9% Normal Saline (100mL Bag) 100 ML IV (11:50)
--- NOTE | 2023-07-22 11:57 | BI_ITS ---
SURGICAL BREAST SPECIMEN RADIOGRAPH CLINICAL: Document presence of tissue clip marker in biopsy specimen. FINDINGS: Specimen shows presence of tissue clip marker. Electronically Signed: Flakito Hernández MD at 15:28 EST , BI/Breast Biopsy Specimen IMPRESSION: undefined
--- NOTE | 2023-07-22 11:58 | BI_ITS ---
SURGICAL BREAST SPECIMEN RADIOGRAPH CLINICAL: Document presence of tissue clip marker in biopsy specimen. FINDINGS: Specimen shows presence of tissue clip marker. Electronically Signed: Flakito Hernández MD at 13:24 EST , BI/Breast Biopsy Specimen IMPRESSION: undefined
[2023-07-22] MEDS: 0.9% Normal Saline (Pres. free 10 ML Vial (12:06)
[2023-07-22] MEDS: Isosulfan Blue 1% 5 ML Vial (12:06)
[2023-07-22] MEDS: Bupivacaine 0.25% 30 ML Vial (15:36)
--- NOTE | 2023-07-22 16:20 | OP.PCM_ITS ---
Report of Operation Date of Procedure: 07/22/23 Pre-Operative Diagnosis: Bilateral breast cancer, triple negative on the left, ER/AR positive on the right. Post-Operative Diagnosis: Same Surgery/Procedure Performed:: 1. Stereotactic guided bilateral breast wire localization 2. Left partial mastectomy 3. Left axillary dissection 4. Right partial mastectomy 5. Right sentinel axillary lymph node biopsy 6. Injection of blue dye bilaterally Type of Anesthesia: General/Regional Specimen's removed: 1. Left breast tissue 2. Left sentinel lymph nodes 3. Left axillary contents 4. Right partial mastectomy 5. Right axillary sentinel lymph nodes Drains: Left VINAY to bulb suction Estimated Blood Loss (mL): 30 Description of Procedure: Patient was brought to the stereotactic area. The left breast was placed into the stereotactic table. The clip was localized. Stereotactic images were obtained and the clip was targeted. The skin was prepped and draped and then injected with local anesthetic. The guidewire was placed into the breast and stereotactic images confirmed it was in good position. Next the needle was removed while the wire stayed in place. Next the right breast was addressed. In the same fashion the right breast was placed in the stereotactic table and the clip was localized. An area of the breast was prepped and then injected with local anesthetic. The stereotactic wire was placed into the breast and images confirmed was in good position. The needle was removed and the wire was left in place. Patient was then taken for bilateral mammograms and the wires were taped in place and she was taken back down to presurgery. Patient was taken back to surgery and general anesthesia was induced. The p eriareolar areas were prepped with alcohol swabs and then 5 cc of Lymphazurin were injected into the retroareolar space on each side. 5 cc of saline were also injected into each retroareolar space. The breast was massaged for 5 minutes and then the breasts and axillas were both prepped and draped in usual sterile fashion. The left axilla was addressed first. An incision was marked in the left axilla and then injected with local anesthetic. Scalpel was used to make an incision. Electrocautery was used to maintain hemostasis. Next the axillary fascia was encountered and opened and then using blunt dissection the left axilla was explored. I was unable to find any radiotracer in the left axilla. I removed 2 smaller lymph nodes that were sent off and that were negative. I was then able to feel a more firm lymph node in the space behind the pectoralis minor. I dissected this node free and it appeared to be grossly positive and firm. It was dissected free and sent for pathology and this came back positive. Since it was triple negative and grossly positive and appeared enlarged and firm I decided to proceed with axillary dissection on the left. The left axillary vein was identified and skeletonized inferiorly. The thoracodorsal vein was identified as well. The thoracodorsal nerve was identified as well as the long thoracic. Next the long thoracic was dissected free medially from its tissue and kept on the chest wall. Superiorly the tissue was dissected free from the long thoracic nerve and laterally from the pectoralis minor. All the contents were removed all the way down to the breast. The area was irrigated and suctioned dry. There was bleeding in the area by the thoracodorsal and this was clipped. The area was irrigated and suctioned dry and there was good hemostasis. The the nerves were identified once more and tested and they were both intact. The scalpel was used to make a small guevara in the skin inferior to the axilla and then a drain was placed through this neck and into the left axilla. The drain was trimmed and then placed into the left axilla. It was sutured in place using 3-0 nylon suture. Next the axilla was closed in layers with 3-0 Vicryl suture and then the skin was closed with running 4-0 Monocryl. Next the left breast was addressed. A curvilinear incision was marked and injected with local anesthetic and then incised with a scalpel. Electrocautery was used for hemostasis. The wire was brought into the incision. Next the wire was followed down to the mass and it was dissected circumferentially using electrocautery. It was marked for orientation and sent for mammogram and pathology. Mammogram revealed the entire wire and the clip and mass were all removed. Pathology revealed that all of the margins were negative. The area was irrigated and suctioned dry and the skin was closed with interrupted 3-0 Vicryl sutures and a running 4-0 Monocryl suture. Dermabond was placed over both incisions. The drain was placed to bulb suction. Next this area was covered with a towel and we addressed the right side and the entire staff changed gown and gloves and we had a new set up of instruments for the opposite side. The right axilla was marked and injected with local anesthetic. Incision was made and electrocautery was used to dissect down to the axillary fascia. The axillary fascia was incised. There was a lymph node that was blue and radioactive. This was removed and it had a high 10-second count. There was nothing left in the axilla that was over 10% of this. There were 2 other blue nodes that were not radioactive that were also removed in the same fashion using clips and sharp dissection.. The lymph nodes were sent on for pathology and were negative for cancer. The axilla was irrigated and the axillary fascia was closed with interrupted 3-0 Vicryl sutures. The skin was closed with interrupted 3-0 Vicryl sutures and running 4-0 Monocryl suture. Next the right breast was addressed. A curvilinear incision was marked and injected with local anesthetic. Incision was made with a scalpel. Electrocautery was used for hemostasis. The wire was brought into the incision. This was very superficial and the entire area was dissected free. It was sent for pathology after marking it. I also took a new posterior margin as it appeared close and so the new posterior margin was also marked with a suture and sent for pathology. These came back negative for positive margins and the clip and wire and mass were identified in the specimen. The cavity was irrigated and suctioned dry and hemostasis was obtained. The incision was closed with 3-0 Vicryl's and a 4 running 4-0 Monocryl. Dermabond was applied to the breast and the axilla. Patient was awoken and taken to PACU in stable condition and will be admitted for observation. Admit VTE Documentation VTE Mechan Device Prophylaxis: SCD's
--- OUTSIDE RECORDS SUMMARY | 2023-07-22 16:57 | XMS RPT_ITS | CCD ---
Author Name Unknown Address [address] [place] [address] Organization [facility] Care Team Providers Care Locker Plant Attendant Name Role Phone Lina Stewart Unavailable Be Esquivel DO Primary Care Provider Keysha tenisha Stack MD, MD, Daesung Unavailable [phone] LEON SINGLETON - SURINDER VIEIRA Primary Care Phys ician Lina Stewart Unavailable [phone] Sreekanth VILLALOBOS MD, Daesung Unavailable Surinder Azul CNP Primary Care Provider JULES MINER Attending Unavailable JULES MINER Referring Unavailable SURINDER AZUL Primary Care Unavailable SHER LENZ Referring Unavailable BE ESQUIVEL Primary Care Unavailable JULES MINER Referring Unavailable SURINDER AZUL Primary Care Unavailable JULES MINER Referring Unavailable SURINDER AZUL Primary Care Unavailable Medications Current Medications Medication Drug Class(es) Dates Sig (Normalized) Sig (Original) Bee pollen oral capsule (1 source) Start: 01-26-2022 Bee pollen oral capsule 0 Refill(s) Start Date: 01/26/22 Status: Ordered ciprofloxacin 500 mg oral tablet (1 source) Quinolone Antimicrobial Start: 01-30-2022 End: 02-04-2022 Cipro 500 mg oral tablet Dose : 500 mg = 1 tab(s), Oral, q12h, X 5 day(s), # 10 tab(s), 0 Refill(s), 02/04/22 11:04:00 EDT, Pharmacy: [facility]/pharmacy #[id number], Abdominal pain, LLQ Acute low back pain, 158, cm, 01/30/22 10:42:00 EDT, Height, 90 Start Date: 01/30/22 Stop Date: 02/04/22 Status: Ordered CoQ10 100 mg oral capsule (1 source) Start: 01-26-2022 take 1 mg by mouth once daily CoQ10 100 mg oral capsule mg = cap(s), Oral, qDay, 0 Refill(s) Start Date: 01/26/22 Status: Ordered meloxicam 15 mg oral tablet (1 source) Nonsteroidal Anti-inflammatory Drug Start: 01-30-2022 End: 02-09-2022 Mobic 15 mg oral tablet Dose : 15 mg = 1 tab(s), Oral, qDay, # 10 tab(s), 0 Refill(s), Pharmacy: [facility]/pharmacy #[id number], Acute low back pain, 158, cm, 01/30/22 10:42:00 EDT, Height Start Date: 01/30/22 Stop Date: 02/09/22 Status: Ordered Misc Medication (2 sources) Start: 01-26-2022 Misc Medication [facility], 0 Refill(s), 78.5 Start Date: 01/26/22 Status: Ordered Completed/Discontinued Medications Medication Drug Class(es) Dates Sig (Normalized) Sig (Original) MEDICATION, NON-DATABASE (2 sources) MEDICATION, NON-DATABASE Immuneti per pt, 1 tablet daily 0 Active Problems Problem Classification Problem Date Documented Date Episodic/Chronic Abdominal pain (1 source) Left lower quadrant pain 01-26-2022 Episodic Cancer of rectum and anus (7 sources) Malignant tumor of rectosigmoid junction; Translations: [Malignant neoplasm of rectosigmoid junction] Onset: 04-29-2018 Chronic Cancer; other and unspecified primary (2 sources) Malignant tumor of pelvis; Translations: [Malignant neoplasm of pelvis] Onset: 05-12-2019 05-12-2019 Chronic Esophageal disorders (1 source) Gastro-esophageal reflux disease with esophagitis 11-14-2019 Chronic Lymphadenitis (1 source) Axillary lymphadenopathy 03-20-2020 Episodic Results Test Name Value Interpretation Reference Range Facil ity Vital Signs Date Time Vital Sign Value Performing Clinician Faci lity 06-05-2022 14:56-0500 Body height 158.8 cm Jules Miner MD Work Phone: [place] [address]-09-2022 14:56-0500 Body temperature 98.91 [degF] Jules Miner MD Work Phone: [facility] 06-05-2022 14:56-0500 Body weight 91.63 kg Jules Miner MD Work Phone: [facility] 06-05-2022 14:56-0500 Diastolic blood pressure 83 mm[Hg] Jules Miner MD Work Phone: [facility] 06-05-2022 14:56-0500 Heart rate 76 /min Jules Miner MD Work Phone: [facility] 06-05-2022 14:56-0500 Systolic blood pressure 137 mm[Hg] Jules Miner MD Work Phone: [facility] Encounters Encounter Date Encounter Type Care Provider Facility Start: 06-05-2022 End: 06-05-2022 ambulatory JULES MINER Facility:[facility] Start: 06-05-2022 End: 06-05-2022 ambulatory Jules Miner MD Work Phone: Hematology/Oncology Procedures Date Procedure Procedure Detail Performing Clinician Start: 11-26-2021 Mri pelvis w/o & w/contrast material Sher Lenz MD Work Phone: Start: 06-05-2021 Adult depression scr eening assessment Mri (I-Stat/1.5t/3t) Work Phone: Start: 04-21-2018 Colonoscopy Mri (I-Sta t/1.5t/3t) Work Phone: Start: 04-21-2018 Colonoscopy SURINDER TO GHISLAINE LEGAL CLERK - CRUISE AGENT Start: 01-03-2018 Arthroplasty SURINDER TO GHISLAINE LEGAL CLERK - CRUISE AGENT Plan of Treatment Date Care Activity Detail Author Start: 04-11-2026 COLORECTAL CANCER SCREENING COLORECTAL CANCER SCREENING [facility] Start: 04-11-2026 SIGMOIDOSCOPY SIGMOIDOSCOPY [facility] Start: 06-05-2025 DIABETES SCREEN DIABETES SCREEN [facility] [place] Start: 05-20-2024 DIABETES SCREEN DIABETES SCREEN [facility] [place] Start: 06-05-2022 Adult depression scr eening assessment DEPRESSION SCREENING [facility] Start: 02-26-2022 Influenza vaccination INFLUENZA (#1) [facility] Start: 06-28-2021 ADVANCE DIRECTIVE DISCUSSION ADVANCE DIRECTIVE DISCUSSION [facility] Start: 06-28-2021 DEPRESSION ASSESSMENT DEPRESSION ASS ESSMENT [facility] Start: 04-21-2019 Colonoscopy COLONOSCOPY [facility] Start: 2018 BONE DENSITY BONE DENSITY [facility] Start: 2018 PNEUMOCOCCAL: 65+ (1 - PCV) PNEUMOCOCCAL: 65+ (1 - PCV) [facility] Start: 2003 SHINGRIX VACCINE (1 of 2) SHINGRIX V ACCINE (1 of 2) [facility] Start: 1998 COLOGUARD (FIT-DNA) COLOGUARD (FIT-D NA) [facility] Start: [address] COLONOGRAPHY [facility] [place] Start: 1998 FECAL OCCULT BLOOD FECAL OCCULT BLOO D [facility] Start: 1998 LIPID SCREEN LIPID SCREEN [facility] Start: 1993 Mammography MAMMOGRAM [facility] Start: 1972 Urine microalbumin profile DTAP,TDAP ,TD (1 - Tdap) [facility] Start: 1959 PNEUMOCOCCAL: 65+ (1 - PCV) PNEUMOCOCCAL: 65+ (1 - PCV) [facility] Start: 1958 COVID-19 VACCINE (#1) COVID-19 VACCI NE (#1) [facility] Start: [birth year]-09-1954 COVID-19 VACCINE (#1) COVID-19 VACCI NE (#1) [facility] Immunizations Immunization Date Immunization Notes Care Provider Fa george 05-10-2020 influenza, high-dose , quadrivalent vaccine (FLUZONE HIGH DOSE QUADRIVALENT) Mri (I-Stat/1.5t/3t) Work Phone: [facility] 05-12-2019 influenza, high dose seasonal, preservative-free Mri (I-Stat/1.5t/3t) Work Phone: [facility] 06-28-2009 diphtheria and tetan us toxoids, adsorbed for pediatric use SURINDER AZUL LEGAL CLERK - CRUISE AGENT [facility] 06-28-2009 hepatitis B vaccine, unspecified formulation SURINDER SINGHPKINS LEGAL CLERK - CRUISE AGENT [facility] Payers Date Payer Category Payer Medicare MEDICARE MEDICAR E A AND B [id number] 2020-Present [phone] [place] [address] Medicare [id number] 2020 Medicare MEDICARE MEDICAR E A AND B [id number] 2020-Present [phone] [place] [address] Medicare [id number] 2020 Medicare [id number] 2019 Medicare [id number] 2019 Unknown [employer] [place] [employer] [place] MEDICARE SUPPLEMENT [id number] 2019-Present [phone] [address] [place] [address] Indemnity [id number] 2019 Unknown [employer] [place] [employer] [place] MEDICARE SUPPLEMENT [id number] 2019-Present [phone] [address] [place] [address] Indemnity [id number] Social History Date Type Detail Facility Start: 04-29-2018 End: 11-14-2019 Tobacco smoking status NHIS Never smoked tobacco [facility] Start: 04-29-2018 Tobacco use and exposure Smoke less tobacco non-user [facility] Start: 06-05-2021 End: 06-05-2022 Alcohol intake Current non-drinker of alcohol (finding) [facility] Start: 1955 Sex Assigned At Not on file C [facility] Sex Assigned At Sex [facility] Clinical Notes 11-26-2021 to 06-05-2022 Jules Miner MD - 06/05/2022 3:42 PM Carmenjeri Umair, RT(R) - 11/26/2021 8:30 AM FRANKTLcesar Barrientos RN - 11/26/2021 8:30 AM EDT Note Date & Type Note Facility 06-05-2022 Note HNO ID: [id number] Author: Jules Miner MD Service: ? Author Type: Physician Type: Progress Notes Filed: 06/07/2022 8:36 AM Note Text: PATIENT NAME: Cynthia Wallace. CLINIC NO: [id number]. ATTENDING PHYSICIAN: Jules Miner MD. 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 Wallace is 66 yo female who after her knee surgery in Dec 2017 started having constipation due to pain meds, but [...] now for the past 1-2 months. Has anorectal pain and worse since the colonoscopy. Currently independent. Biopsy was c/w squamous cell cancer. No prior history of genital warts or non-genital. No history of blood transfusion. After biopsy was seen by Delfin and was ordered CT scans and MRI of the pelvis. Later approved for a PET/CT. MRI showed extension into the vaginal wall, now with occasional vaginal bleeding. she has lost 15 pounds since her diagnosis 2 months ago. Primary treatment: Mitomycin-C AND 5FU CIV day 1-4; day 28-31 with concurrent radiation therapy. Interim history: Patient has no complaint today. There were no evidence of residual anal cancer on her MRI rectum on November 26, 2021. She denied diarrhea, rectal pain, rectal or vaginal bleeding. She has no difficulty with urination burning or hematuria. She denied cough or shortness of breath. Her weight and appetite is stable. All medications AND allergies updated and reviewed by me. REVIEW OF SYSTEMS: CONSTITUTIONAL: No fevers, chills, nightsweats, unintended weight loss HEENT: Denies frequent or severe heaches, nasal congestion/sinus symptoms, problematic allergy problems. EYES: No diplopia or blurry vision. CARDIOVASCULAR: No chest pain, dyspnea, palpitations, orthopnea, PND, ankle edema. PULM: No dyspnea, unexplained cough. GI: No dysphagia/odynophagia, problematic reflux, constipation, diarrhea, changes in stool habits, hematochezia, melena. : denied dysuria or hematuria. NEURO: No new balance problems, peripheral weakness/paresthesias or numbness of concern. MUSC-SKEL: No new joint pain, swelling, or erythema. PSY: No concerns regarding depression, anxiety or panic. INTEGUMENTARY: No new skin changes (rash, new or changing mole, new growth) PHYSICAL EXAMINATION: 66-year-old lady appeared to be in no acute distress BP 130/80 Pulse 75 Temp 98.2 Ht 5' 2.598 (1.59m) Wt 199 lb (90.3kg) BMI 35.71 kg/(m2). HEENT: Head is normocephalic, atraumatic. Sclerae white, conjunctivae pink. PEERL. EOMs are intact. Oropharynx is benign. LYMPHATICS: There is no palpable adenopathy in the neck, supraclavicular region, axillae, or groin. BREASTS: Without skin dimpling, nipple discharge or masses. LUNGS: Lungs are clear to percussion and auscultation. HEART: Heart is normal without murmurs, gallops, or rubs. ABDOMEN: Soft and nontender without organomegaly. No masses can be palpated. No inguinal adenopathy. RECTAL: deferred. EXTREMITIES: Are without edema. NEUROLOGIC: Exam is physiologic LABS: Component Latest Ref Rng AND Units 06/05/2022 WBC 3.70 - 11.00 k/uL 6.60 RBC 3.90 - 5.20 m/uL 4.73 Hemoglobin 11.5 - 15.5 g/dL 13.8 Hematocrit 36.0 - 46.0 % 42.6 MCV 80.0 - 100.0 fL 90.1 MCH 26.0 - 34.0 pg 29.2 MCHC 30.5 - 36.0 g/dL 32.4 RDW-CV 11.5 - 15.0 % 13.2 Platelet Count MPV NRBC /100 WBC 0.0 Absolute nRBC <0.01 k/uL <0.01 Neut% % 61.0 Abs Neut (ANC) 1.45 - 7.50 k/uL 4.03 Lymph% % 28.0 Abs Lymph 1.00 - 4.00 k/uL 1.85 Catahoula% % 8.0 Abs [place]oula <0.87 k/uL 0.53 Eosin% % 1.0 Abs Eosin <0.46 k/uL 0.07 Baso% % 2.0 Abs Baso <0.11 k/uL 0.13 (H) Platelet Estimate Adequate Platelet Clumping Present Red Cell Morph Reviewed: see results of individual morphologies Ovalocytes Few DTYPE Manual Component Latest Ref Rng AND Units 06/05/2022 Protein, Total 6.3 - 8.0 g/dL 7.5 Albumin 3.9 - 4.9 g/dL 4.9 Calcium 8.5 - 10.2 mg/dL 9.6 Bilirubin, Total 0.2 - 1.3 mg/dL 0.2 Alkaline Phosphatase 34 - 123 U/L 99 AST 13 - 35 U/L 17 ALT 7 - 38 U/L 14 Glucose 74 - 99 mg/dL 99 BUN 7 - 21 mg/dL 14 Creatinine 0.58 - 0.96 mg/dL 0.98 (H) Sodium 136 - 144 mmol/L 139 Potassium 3.7 - 5.1 mmol/L 3.8 Chloride 97 - 105 mmol/L 100 CO2 22 - 30 mmol/L 29 Anion Gap 9 - 18 mmol/L 10 eGFR >=60 mL/min/1.73mA? 63 Assessment/Plan: 1. Anal cancer; clinical stage I (more content not included)... [facility] 06-05-2022 Note HNO ID: [id number] Author: Kika Rivera, RT(R) Service: Radiology Author Type: Technologist Type: Progress Notes Filed: 06/05/2022 2:29 PM Note Text: Radiology Service Progress Note PATIENT NAME: Cynthia Wallace DATE OF SERVICE: June 05, 2022 TIME: 2:18 PM PATIENT IDENTITY VERIFICATION COMPLETED USING TWO (2) IDENTIFIERS: Name and Date of confirmed by patient verbally. FALL SCREENING: Has the patient had 2 falls in the last year or 1 fall with injury or currently using an Ambulatory Assistive Device (Walker, Cane, Wheelchair, Crutches, etc.)? No PATIENT GENDER DATA: Female. status: : No status: NO. PATIENT RELEVANT IMPLANT DATA REVIEWED: Yes RADIOLOGY DEPARTMENT: General X-ray: Exam(s) Completed: Chest X-Ray PERIPHERAL IV DATA: Not applicable SIGNED BY: RT Paula(R) June 05, 2022 2:18 PM [facility] 06-05-2022 History of Present illness Narrative PATIENT NAME: Cynthia Wallace. CLINIC NO: [id number]. ATTENDING PHYSICIAN: Jules Miner MD. 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 Wallace is 66 yo female who after her knee surgery in Dec 2017 started having constipation due to pain meds, but [...] now for the past 1-2 months. Has anorectal pain and worse since the colonoscopy. Currently independent. Biopsy was c/w squamous cell cancer. No prior history of genital warts or non-genital. No history of blood transfusion. After biopsy was seen by Delfin and was ordered CT scans and MRI of the pelvis. Later approved for a PET/CT. MRI showed extension into the vaginal wall, now with occasional vaginal bleeding. she has lost 15 pounds since her diagnosis 2 months ago. Primary treatment: Mitomycin-C & 5FU CIV day 1-4; day 28-31 with concurrent radiation therapy. Interim history: Patient has no complaint today. There were no evidence of residual anal cancer on her MRI rectum on November 26, 2021. She denied diarrhea, rectal pain, rectal or vaginal bleeding. She has no difficulty with urination burning or hematuria. She denied cough or shortness of breath. Her weight and appetite is stable. All medications & allergies updated and reviewed by me. REVIEW OF SYSTEMS: CONSTITUTIONAL: No fevers, chills, nightsweats, unintended weight loss HEENT: Denies frequent or severe heaches, nasal congestion/sinus symptoms, problematic allergy problems. EYES: No diplopia or blurry vision. CARDIOVASCULAR: No chest pain, dyspnea, palpitations, orthopnea, PND, ankle edema. PULM: No dyspnea, unexplained cough. GI: No dysphagia/odynophagia, problematic reflux, constipation, diarrhea, changes in stool habits, hematochezia, melena. : denied dysuria or hematuria. NEURO: No new balance problems, peripheral weakness/paresthesias or numbness of concern. MUSC-SKEL: No new joint pain, swelling, or erythema. PSY: No concerns regarding depression, anxiety or panic. INTEGUMENTARY: No new skin changes (rash, new or changing mole, new growth) PHYSICAL EXAMINATION: 66-year-old lady appeared to be in no acute distress BP 130/80 Pulse 75 Temp 98.2 Ht 5' 2.598 (1.59m) Wt 199 lb (90.3kg) BMI 35.71 kg/(m^2). HEENT: Head is normocephalic, atraumatic. Sclerae white, conjunctivae pink. PEERL. EOMs are intact. Oropharynx is benign. LYMPHATICS: There is no palpable adenopathy in the neck, supraclavicular region, axillae, or groin. BREASTS: Without skin dimpling, nipple discharge or masses. LUNGS: Lungs are clear to percussion and auscultation. HEART: Heart is normal without murmurs, gallops, or rubs. ABDOMEN: Soft and nontender without organomegaly. No masses can be palpated. No inguinal adenopathy. RECTAL: deferred. EXTREMITIES: Are without edema. NEUROLOGIC: Exam is physiologic LABS: Component Latest Ref Rng & Units 06/05/2022 WBC 3.70 - 11.00 k/uL 6.60 RBC 3.90 - 5.20 m/uL 4.73 Hemoglobin 11.5 - 15.5 g/dL 13.8 Hematocrit 36.0 - 46.0 % 42.6 MCV 80.0 - 100.0 fL 90.1 MCH 26.0 - 34.0 pg 29.2 MCHC 30.5 - 36.0 g/dL 32.4 RDW-CV 11.5 - 15.0 % 13.2 Platelet Count MPV NRBC /100 WBC 0.0 Absolute nRBC <0.01 k/uL <0.01 Neut% % 61.0 Abs Neut (ANC) 1.45 - 7.50 k/uL 4.03 Lymph% % 28.0 Abs Lymph 1.00 - 4.00 k/uL 1.85 Catahoula% % 8.0 Abs [place]a <0.87 k/uL 0.53 Eosin% % 1.0 Abs Eosin <0.46 k/uL 0.07 Baso% % 2.0 Abs Baso <0.11 k/uL 0.13 (H) Platelet Estimate Adequate Platelet Clumping Present Red Cell Morph Reviewed: see results of individual morphologies Ovalocytes Few DTYPE Manual Component Latest Ref Rng & Units 06/05/2022 Protein, Total 6.3 - 8.0 g/dL 7.5 Albumin 3.9 - 4.9 g/dL 4.9 Calcium 8.5 - 10.2 mg/dL 9.6 Bilirubin, Total 0.2 - 1.3 mg/dL 0.2 Alkaline Phosphatase 34 - 123 U/L 99 AST 13 - 35 U/L 17 ALT 7 - 38 U/L 14 Glucose 74 - 99 mg/dL 99 BUN 7 - 21 mg/dL 14 Creatinine 0.58 - 0.96 mg/dL 0.98 (H) Sodium 136 - 144 mmol/L 139 Potassium 3.7 - 5.1 mmol/L 3.8 Chloride 97 - 105 mmol/L 100 CO2 22 - 30 mmol/L 29 Anion Gap 9 - 18 mmol/L 10 eGFR >=60 mL/min/1.73m 63 Assessment/Plan: 1. Anal cancer; clinical stage IIIc, squamous cell carcinoma, - Clinical DEMETRIA; concurrent chemoradiation after 4 years Plan: -Follow-up with Dr. Lenz for flexible sigmoidoscopy next year -No further follow-up is needed at our office. 2. Cancer screening Plan: -Annual mammogram and follow-up with PCP Portions of this documentation were copied and pasted from previous office visit notes in order to provide a cohesive continuity of the history. The note has been reviewed and edited and updated as necessary. Jules Miner MD Cc: Surinder Azul, ISHA Lenz MD documented in this encounter [facility] 02-01-2022 Note . MICRO - Microbiology PROCEDURE: Urine Culture [*1] SOURCE: Urine, Clean Catch BODY SITE: COLLECTED DATE/TIME: 01/30/2022 10:48 EDT RECEIVED DATE/TIME: 01/31/2022 16:42 EDT START DATE/TIME: 01/31/2022 16:42 EDT FREE TEXT SOURCE: FINAL REPORTS Final Report [] Verified Date/Time/Personnel: 02/01/2022 13:04 EDT 10,000 - 50,000 cfu/ml Multiple bacterial morphotypes present. Probable Contamination. Suggest recollection if clinically indicated. Performing Locations *1: This test was performed at: [address], [facility] , [facility] ([place]) 11-26-2021 Note HNO ID: [id number] Author: Marisel Barrientos RN Service: Radiology Author Type: Registered Nurse Type: Progress Notes Filed: 11/26/2021 9:00 AM Note Text: Radiology Service Progress Note DATE OF SERVICE: November 26, 2021 TIME: 8:56 AM PATIENT WEIGHT: 202LBS PATIENT IDENTITY VERIFICATION COMPLETED [...] A peripheral IV was started in the Left antecubital site with a Angio cath: 22 gauge. and A Saline lock was inserted per protocol IV SITE APPEARANCE: Clean,Dry and Intact SIGNATURE: Marisel Barrientos RN PATIENT NAME: Cynthia Wallace DATE: November 26, 2021 TIME: 8:56 AM [facility] 11-26-2021 Note HNO ID: [id number] Author: JAKOB Sosa) Service: Radiology Author Type: Technologist Type: Progress Notes Filed: 11/26/2021 10:15 AM Note Text: Radiology Service Progress Note PATIENT NAME: Cynthia Wallace DATE OF SERVICE: November 26, 2021 TIME: 10:14 AM PATIENT IDENTITY VERIFICATION COMPLETED USING TWO (2) [...] DATA: Female. status: : No status: NO. PATIENT RELEVANT IMPLANT DATA REVIEWED: Yes RADIOLOGY DEPARTMENT: MR; Exam(s) Completed: Body: Rectal PERIPHERAL IV DATA: Site assessment: Clean,Dry and Intact, Site disposition Discontinued SIGNED BY: RT Merari(R) November 26, 2021 10:14 AM [facility] 11-26-2021 History of Present illness Narrative Radiology Service Progress Note PATIENT NAME: Cynthia Wallace DATE OF SERVICE: November 26, 2021 TIME: 10:14 AM PATIENT IDENTITY VERIFICATION COMPLETED USING TWO (2) [...] DATA: Female. status: : No status: NO. PATIENT RELEVANT IMPLANT DATA REVIEWED: Yes RADIOLOGY DEPARTMENT: MR; Exam(s) Completed: Body: Rectal PERIPHERAL IV DATA: Site assessment: Clean,Dry and Intact, Site disposition Discontinued SIGNED BY: RT Merari(R) November 26, 2021 10:14 AM Radiology Service Progress Note DATE OF SERVICE: November 26, 2021 TIME: 8:56 AM PATIENT WEIGHT: 202LBS PATIENT IDENTITY VERIFICATION COMPLETED [...] A peripheral IV was started in the Left antecubital site with a Angio cath: 22 gauge. and A Saline lock was inserted per protocol IV SITE APPEARANCE: Clean,Dry and Intact SIGNATURE: Marisel Barrientos RN PATIENT NAME: Cynthia Wallace DATE: November 26, 2021 TIME: 8:56 AM documented in this encounter [facility] Evaluation + Plan note No data available for this section [facility] Diagnosis Anal cancer (HCC)- Primary Malignant neoplasm of anus, unspecified site [facility] Discharge instructions No data available for this section [facility] Progress note No data available for this section [facility] Reason for Referral Specialty Diagnoses / Procedures Referred By Contac t Referred To Contact MR IMAGING Diagnoses Malignant neoplasm of rectosigmoid junction (HCC) Procedures MRI RECTUM WO/W IVCON MRI PELVIS W/WO CONTRAST Sher Lenz MD [address] [place] [address] Mr Imaging Referral ID Status Reason Start Date Expiration Date V isits Requested Visits Authorized [id number] Closed Auto-Generate d Referral 04/11/2021 05/11/2022 1 1 Advance Directives No Advanced Directives Records FoundDocuments on File Type Date Recorded 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 Advance Directive(s) 08/08/2019 1:14 PM Advance Directive(s) 07/31/2019 4:22 PM Summary Purpose Family History No Family History Records FoundNo Family History Records Found Additional Source Comments Source Comments (unrecognize d section and content) In the event this informatio n is protected by the Federal Confidentiality of Alcohol and Drug Abuse Patient Records regulations: The Federal rules restrict any use of the information to criminally investigate or prosecute any alcohol or drug abuse patient.[facility] the event this information is protected by the Federal Confidentiality of Alcohol and Drug Abuse Patient Records regulations: The Federal rules restrict any use of the information to criminally investigate or prosecute any alcohol or drug abuse patient.[facility] Reason for Visit (unrecogniz ed section and content) Specialty Diagnoses / Procedures Referred By Nunu don Referred To Contact MR IMAGING Diagnoses Malignant neoplasm of rectosigmoid junction (HCC) Procedures MRI RECTUM WO/W IVCON MRI PELVIS W/WO CONTRAST Sher Lenz MD [address] [place] [address] Mr Imaging Referral ID Status Reason Start Date Expiration Date V isits Requested Visits Authorized [id number] Closed Auto-Generate d Referral 04/11/2021 05/11/2022 1 1 Reason Comments Established Patient Care Teams (unrecognized sec tion and content) Locker Plant Attendant Relationship Specialty Start Date End Date Surinder Azul, CRUISE AGENT [address] [facility] [place] [address] PCP - General Family Medicine 04/20/22 Lina Stewart Referring General Surgery 04/22/18 Charissa Stack MD, [address] [place] [address] Physician Radiation Oncology 06/01/18 Care Team (unrecognized sect ion and content) Care Team Personnel Name: SURINDER AZUL LEGAL CLERK - CRUISE AGENT Position: P4 Advanced Practice Nurse Med Service: Employed Provider Member Role: Primary Care Physician Address: Address: [address] [place] [id number] Care Team Related Persons Name: BRAD WALLACE Address: Home [address] [place], [place] [id number] Address: [facility] [address] [place], [place] [id number] INFORMATION SOURCE (unrecogn ized section and content) DATE CREATED AUTHOR AUTHOR'S ORGANIZ ATION 06/09/2022 [facility] FOR RECORDS PERTAINING TO PATIENTS WHO ARE OR HAVE BEEN ENROLLED IN A CHEMICAL DEPENDENCY/SUBSTANCEABUSE PROGRAM, SOME INFORMATION MAY BE OMITTED. This clinical summary was aggregated from multiple sources. Caution should be exercised in using it in the provision of clinical care. This summary normalizes information from multiple sources, and as a consequence, information in this document may materially change the coding, format and clinical context of patient data. In addition, data may be omitted in some cases. CLINICAL DECISIONS SHOULD BE BASED ON THE PRIMARY CLINICAL RECORDS. [facility]. provides no warranty or guarantee of the accuracy or completeness of information in this document.
[2023-07-22] MEDS: Ketorolac 15 MG/ML Vial IV (17:21)
[2023-07-22] MEDS: 0.9% Saline Lock 10 ML Syringe IV (17:22)
[2023-07-22] MEDS: 0.9% Normal Saline (1000mL) 1,000 ML 100 ML IV (17:34)
[2023-07-22] MEDS: Acetaminophen 325 MG Tablet 650 MG PO (21:09)
[2023-07-22] MEDS: oxyCODONE 5 MG Tablet PO (21:10)
[2023-07-23 01:06] VITALS: BP 121/61; PULSE 63; RESP 16; TEMP 37.1; O2SAT 96
[2023-07-23 02:36] VITALS: O2SAT 96
[2023-07-23 05:02] VITALS: BP 120/65; PULSE 65; RESP 16; TEMP 36.8; O2SAT 96
[2023-07-23] MEDS: 0.9% Normal Saline (1000mL) 1,000 ML 100 ML IV (05:05)
[2023-07-23 06:32] LABS: Absolute Lymphocyte Count 0.85 X10^3/uL (0.83-4.51); Absolute Neutrophil Count 6.5 X10^3/uL (2.0-7.7); Basophil# 0.02 X10^3/uL; Basophil% 0.2 % (0-1); Hematocrit 36.2 % (37-47); Hemoglobin 11.2 g/dL (12.0-15.0); Lymphocyte # 0.85 X10^3/ul (0.83-4.51); Lymphocyte % 10.6 % (19-41); Mean Corp Hgb Conc 30.9 g/dL (32-36); Mean Corpuscular Hgb 28.9 pg (27.0-32.0); Mean Corpuscular Volume 93.3 fL (81-99); Mean Platelet Vol. 8.5 fl (6.2-12.0); Monocyte# 0.64 X10^3/uL; NRBC Flagged by Analyzer 0 % (0-5); Platelet Count 224 K/mm3 (150-450); RBC Distribution Width CV 12.9 % (11.6-14.6); Red Blood Count 3.88 M/mm3 (4.2-5.4)
[2023-07-23 06:58] LABS: Anion Gap 4 (5-15); BUN 19 mg/dL (7-18); BUN/Creat Ratio 19.6 RATIO (10-20); Calcium,Total 8.3 mg/dL (8.5-10.1); Chloride 108 mmol/L (98-107); Creatinine, Serum 0.97 mg/dL (0.55-1.02); EST Glomerular Filtration Rate 60 mL/min (>60); Est Glom Filt Rate - Afr Amer 73 mL/min (>60); Estimated Creatinine Clearance 58.62 ml/min; Glucose 124 mg/dL (74-106); Sodium Level 138 mmol/L (136-145)
--- NOTE | 2023-07-23 07:16 | DCINST_ITS ---
Discharge Instructions Diet Discharge Diet: Light diet - advance as tolerated Activity Discharge Activity: May Not Drive (for 2-3 days or while taking narcotic pain medications.) and May Shower Lifting Restrictions: 10 lbs for 1 week Dressing / Incision Call your doctor if your incision/area has: Continuous Slow Oozing, Sudden Increased Bleeding, Increased Pain/ Swelling, Increased Redness, Foul Smelling Discharge and Swelling at the incision site Call your doctor if you observe: Fever of 101 or Higher Suture Line Care: Avoid Pulling/Pushing and Avoid Pinching/Bending Cleanse incision/area with: Soap & Water Additional Dressing/Incision Instructions:: Wear tight fitting sports bra for support, record drain output daily. Follow Up Care Please Follow Up With: Blu Kraus MD When: Please call to schedule 1 week follow up appointment. [phone] Test Results: Test results from this visit will be discussed in further detail at your follow- up appointment, if applicable. Discharge Plan Admission Admit Date/Time: 07/22/23 16:46 Attending Provider: Blu Kraus Primary Care Provider: Surinder Azul NP Discharge Orders/Prescriptions Prescriptions: New oxycodone 5 mg Tablet 5 - 10 mg PO Q4H PRN PRN (Reason: Pain Score 4-10) 5 Days Qty: 30 0RF Continued multivitamin Tablet 1 tab PO DAILY pantoprazole 40 mg tablet,delayed release (DR/EC) 40 mg PO DAILY nabumetone 500 mg tablet 500 mg PO BID cholecalciferol (vitamin D3) 25 mcg (1,000 unit) capsule 25 mcg PO DAILY acetaminophen [Tylenol] 325 MG tablet 1,000 mg PO Q8H PRN (Reason: Fever, headache, pain) 0RF BALANCE OF NATURE FRUITS 3 tab PO DAILY BALANCE OF NATURE VEGETABLES 3 tab PO DAILY Referrals / Follow Up: Surinder Azul NP, PROPERTY SITE MANAGER-C [Primary Care Provider] - Disposition Disposition (needs filled in before D/C Order can be placed): Home, Self Care
[2023-07-23] MEDS: oxyCODONE 5 MG Tablet PO (08:03)
[2023-07-23] MEDS: Acetaminophen 325 MG Tablet 650 MG PO (08:03)
[2023-07-23 08:08] VITALS: BP 121/49; PULSE 65; RESP 16; TEMP 37.1; O2SAT 96
[2023-07-23] MEDS: Pantoprazole Sodium 40 MG Tablet PO (08:17)
--- NOTE | 2023-07-23 09:37 | CASEMGMT ---
Pt states that she is comfortable DC from the hospital and states she has enough education regarding her drain. Pt states her and her can tend to this at home. Pt denies further needs.
--- NOTE | 2023-07-23 10:14 | PHA.DC.MC.R ---
Pharmacy [facility] Pharm[facility] Service has performed discharge medication reconciliation and counseling for this patient. The patient's discharge medication list was reviewed for discrepancies and discrepancies were resolved. The patient was counseled on the following discharge medications and changes in medications for homegoing were reviewed. The Reason for Use, instructions for use, and potential side effects were reviewed for all new medications. The patient's questions regarding all of their medications were answered. 1. Oxycodone 5-10 mg Q4H PRN pain. The patient was able to verbally demonstrate an understanding of their discharge medications. Medications at Discharge Home Medications acetaminophen 325 mg tablet (Tylenol) 1,000 mg (3.0769 x 325 mg) PO Q8H PRN Fever, headache, pain 07/24/18 cholecalciferol (vitamin D3) 25 mcg (1,000 unit) capsule 25 mcg PO DAILY 05/17/23 multivitamin 1 tab PO DAILY 05/17/23 nabumetone 500 mg tablet 500 mg PO BID 05/17/23 pantoprazole 40 mg tablet,delayed release 40 mg PO DAILY 05/17/23 BALANCE OF NATURE FRUITS 3 tab PO DAILY 07/14/23 BALANCE OF NATURE VEGETABLES 3 tab PO DAILY 07/14/23 oxycodone 5 mg tablet 5 - 10 mg (1 - 2 x 5 mg) PO Q4H PRN PRN Pain Score 4-10 5 days #30 tabs 07/23/23
== END 2023-07-23 11:56 | disposition home or self-care (01) ==
LOC: SDC 16:54 → MS3 16:54
PROVIDERS: Internal Medicine Medical Oncology; Admitting Provider Surgery; PCP Nurse Practitioner Family; Referring Provider Surgery; Visit Provider Surgery
PROC: (CPT 19301; principal; 2023-07-22 11:30)
DX: C50.812 Malignant neoplasm of overlapping sites of left female breast (principal); C50.811 Malignant neoplasm of overlapping sites of right female breast; Z17.0 Estrogen receptor positive status [ER+]; Z80.3 Family history of malignant neoplasm of breast; K21.9 Gastro-esophageal reflux disease without esophagitis; Z79.899 Other long term (current) drug therapy
CPT/HCPCS: 19302; 00400; 19281; 36415; 38792; 76098; 80048; 80053; 83615; 85025; 88305; 88307; 88331; 88332; 88341; 88342; 93005; 94668; 96361; 96374; 99221; A4648; A9541; J7030; J7120; A4216; G0378; J2405; J3490; Q9968

== ENCOUNTER 2023-08-16 05:55 | Day surgery (SDC) | payer MEDICARE, OTHER, SELFPAY ==
--- OUTSIDE RECORDS SUMMARY | 2023-08-16 06:12 | XMS RPT_ITS | CCD ---
Author Name Unknown Address [address] [place] [address] Organization [facility] Care Team Providers Care Brown Sourer Name Role Phone Lina Stewart Unavailable Be Esquivel DO Primary Care Provider Keysha tenisha Stack MD, MD, Daesung Unavailable LEON SINGLETON - SURINDER VIEIRA Primary Care Phys ician Lina Stewart Unavailable [phone] Sreekanth VILLALOBOS MD, Daesung Unavailable Surinder [...] tab(s), 0 Refill(s), 02/04/22 11:04:00 EDT, Pharmacy: [facility]/pharmacy #[id number], Abdominal pain, LLQ Acute low back pain, [...] qDay, # 10 tab(s), 0 Refill(s), Pharmacy: [facility]/pharmacy #[id number], Acute low back pain, 158, cm, 01/30/22 10:42:00 EDT, Height Start Date: 01/30/22 Stop Date: 02/09/22 Status: Ordered Misc Medication (2 sources) Start: 01-26-2022 Misc Medication [facility], 0 Refill(s), 78.5 Start Date: 01/26/22 Status: [...] 158.8 cm Jules Miner MD Work Phone: [place] 95992-09-2022 14:56-0500 Body temperature 98.91 [degF] Jules Miner MD Work Phone: [facility] 06-05-2022 14:56-0500 Body weight 91.63 kg Jules Miner MD Work Phone: [facility] 06-05-2022 14:56-0500 Diastolic blood pressure 83 mm[Hg] Jules Miner MD Work Phone: [facility] 06-05-2022 14:56-0500 Heart rate 76 /min Jules Miner MD Work Phone: [facility] 06-05-2022 14:56-0500 Systolic blood pressure 137 mm[Hg] Jules Miner MD Work Phone: [facility] Encounters Encounter Date Encounter Type Care Provider Facility Start: 06-05-2022 End: 06-05-2022 ambulatory JULES MINER Facility:[facility] Start: 06-05-2022 End: 06-05-2022 ambulatory Jules Miner MD Work Phone: Hematology/Oncology Procedures Date Procedure Procedure Detail Performing Clinician Start: 11-26-2021 Mri pelvis w/o & w/contrast material Sher Lenz MD Work Phone: Start: 06-05-2021 Adult depression scr eening assessment Mri (I-Stat/1.5t/3t) Work Phone: Start: 04-21-2018 Colonoscopy Mri (I-Sta t/1.5t/3t) Work Phone: Start: 04-21-2018 Colonoscopy SURINDER TO GHISLAINE SUPERVISOR BOTTLE MACHINES - CRACKING AND FANNING MACHINE OPERATOR Start: 01-03-2018 Arthroplasty SURINDER TO GHISLAINE SUPERVISOR BOTTLE MACHINES - CRACKING AND FANNING MACHINE OPERATOR Plan of Treatment Date Care Activity Detail Author Start: 04-11-2026 COLORECTAL CANCER SCREENING COLORECTAL CANCER SCREENING [facility] Start: 04-11-2026 SIGMOIDOSCOPY SIGMOIDOSCOPY [facility] Start: 06-05-2025 DIABETES SCREEN DIABETES SCREEN [facility] Start: 05-20-2024 DIABETES SCREEN DIABETES SCREEN [facility] Start: 06-05-2022 Adult depression scr eening assessment DEPRESSION SCREENING [facility] Start: 02-26-2022 Influenza vaccination INFLUENZA (#1) [facility] Start: 06-28-2021 ADVANCE DIRECTIVE DISCUSSION ADVANCE DIRECTIVE DISCUSSION [facility] Start: 06-28-2021 DEPRESSION ASSESSMENT DEPRESSION ASS ESSMENT [facility] Start: 04-21-2019 Colonoscopy COLONOSCOPY [facility] Start: 2018 BONE DENSITY BONE DENSITY [facility] Start: 2018 PNEUMOCOCCAL: 65+ (1 - PCV) PNEUMOCOCCAL: 65+ (1 - PCV) [facility] Start: 2003 SHINGRIX VACCINE (1 of 2) SHINGRIX V ACCINE (1 of 2) [facility] Start: 1998 COLOGUARD (FIT-DNA) COLOGUARD (FIT-D NA) [facility] Start: [address] COLONOGRAPHY [facility] Start: 1998 FECAL OCCULT BLOOD FECAL OCCULT BLOO D [facility] Start: 1998 LIPID SCREEN LIPID SCREEN [facility] Start: 1993 Mammography MAMMOGRAM [facility] Start: 1972 Urine microalbumin profile DTAP,TDAP ,TD (1 - Tdap) [facility] Start: 1959 PNEUMOCOCCAL: 65+ (1 - PCV) PNEUMOCOCCAL: 65+ (1 - PCV) [facility] Start: 1958 COVID-19 VACCINE (#1) COVID-19 VACCI NE (#1) [facility] Start: 02-09-1954 COVID-19 VACCINE (#1) COVID-19 VACCI NE (#1) [facility] Immunizations Immunization Date Immunization Notes Care Provider Fa george 05-10-2020 influenza, high-dose , quadrivalent vaccine (FLUZONE HIGH DOSE QUADRIVALENT) Mri (I-Stat/1.5t/3t) Work Phone: [facility] 05-12-2019 influenza, high dose seasonal, preservative-free Mri (I-Stat/1.5t/3t) Work Phone: [facility] 06-28-2009 diphtheria and tetan us toxoids, adsorbed for pediatric use SURINDER AZUL SUPERVISOR BOTTLE MACHINES - CRACKING AND FANNING MACHINE OPERATOR [facility] 06-28-2009 hepatitis B vaccine, unspecified formulation SURINDER SINGHPKINS SUPERVISOR BOTTLE MACHINES - CRACKING AND FANNING MACHINE OPERATOR [facility] Payers Date Payer Category Payer Medicare MEDICARE MEDICAR E A AND B [id number] 2020-Present [phone] [place] [address] Medicare [id number] 2020 Medicare MEDICARE MEDICAR E A AND B [id number] 2020-Present [phone] [place] [address] Medicare [id number] 2020 Medicare [id number] 2019 Medicare [id number] 2019 Unknown [employer] [place] [employer] [place] MEDIC[employer] SUPPLEMENT [id number] 2019-Present [phone] [place] [address] Indemnity [id number] 2019 Unknown [employer] [place] [employer] [place] MEDICARE SUPPLEMENT [id number] 2019-Present [phone] [id number] [place] [address] Indemnity [id number] Social History Date Type Detail Facility Start: 04-29-2018 End: 11-14-2019 Tobacco smoking status NHIS Never smoked tobacco [facility] Start: 04-29-2018 Tobacco use and exposure Smoke less tobacco non-user [facility] Start: 06-05-2021 End: 06-05-2022 Alcohol intake Current non-drinker of alcohol (finding) [facility] Start: 1955 Sex Assigned At Not on file [facility] Sex Assigned At Sex [facility] Clinical Notes 11-26-2021 to 06-05-2022 Jules Miner MD - 06/05/2022 3:42 PM Carmenjeri Umair, RT(R) - 11/26/2021 8:30 AM FRANKTLcesar Barrientos RN - 11/26/2021 8:30 AM EDT Note Date & Type Note Facility 06-05-2022 Note HNO ID: [id number] Author: Jules Miner MD Service: ? Author Type: Physician Type: Progress Notes Filed: 06/07/2022 8:36 AM Note Text: PATIENT NAME: Cynthia Wallace. CLINIC NO: [id number]. ATTENDING PHYSICIAN: Jules Miner MD. DATE OF [...] Abs Lymph 1.00 - 4.00 k/uL 1.85 [place]% % 8.0 Abs [place] <0.87 k/uL 0.53 Eosin% % 1.0 Abs [...] clinical stage I (more content not included)... [facility] 06-05-2022 Note HNO ID: [id number] Author: Kika Rivera, RT(R) Service: Radiology Author [...] RT Paula(R) June 05, 2022 2:18 PM [facility] 06-05-2022 History of Present illness Narrative PATIENT NAME: Cynthia Wallace. CLINIC NO: [id number]. ATTENDING PHYSICIAN: Jules Miner MD. DATE OF [...] Abs Lymph 1.00 - 4.00 k/uL 1.85 [place]% % 8.0 Abs [place] <0.87 k/uL 0.53 Eosin% % 1.0 Abs [...] ISHA Lenz MD documented in this encounter [facility] 02-01-2022 Note . MICRO - Microbiology PROCEDURE: [...] Locations *1: This test was performed at: [address], [facility] , [facility], [facility] ([place]) 11-26-2021 Note HNO ID: [id number] Author: Marisel Barrientos RN Service: Radiology Author [...] DATE: November 26, 2021 TIME: 8:56 AM [facility] 11-26-2021 Note HNO ID: [id number] Author: JAKOB Sosa) Service: Radiology Author Type: [...] RT Merari(R) November 26, 2021 10:14 AM [facility] 11-26-2021 History of Present illness [...] TIME: 8:56 AM documented in this encounter [facility] Evaluation + Plan note No data available for this section [facility] Diagnosis Anal cancer (HCC)- Primary Malignant neoplasm of anus, unspecified site [facility] Discharge instructions No data available for this section [facility] Progress note No data available for this section [facility] Reason for Referral Specialty Diagnoses / Procedures Referred By Contac t Referred To Contact MR IMAGING Diagnoses Malignant neoplasm of rectosigmoid junction (HCC) Procedures MRI RECTUM WO/W IVCON MRI PELVIS W/WO CONTRAST Sher Lenz MD [address] [place] [address] Mr Imaging Referral ID Status Reason Start Date Expiration Date V isits Requested Visits Authorized [id number] Closed Auto-Generate d Referral 04/11/2021 05/11/2022 1 1 Advance Directives No Advanced Directives Records FoundDocuments on File Type Date Recorded Patient Credentialer Expl anation Advance Directive(s) 08/08/2019 1:14 PM [...] any alcohol or drug abuse patient.[facility] the event this information is protected by the Federal Confidentiality of Alcohol and Drug Abuse Patient Records regulations: The Federal rules restrict any use of the information to criminally investigate or prosecute any alcohol or drug abuse patient.[facility] Reason for Visit (unrecogniz ed section and content) Specialty Diagnoses / Procedures Referred By Nunu don Referred To Contact MR IMAGING Diagnoses Malignant neoplasm of rectosigmoid junction (HCC) Procedures MRI RECTUM WO/W IVCON MRI PELVIS W/WO CONTRAST Sher Lenz MD [address] [place] [address] Mr Imaging Referral ID Status Reason Start Date Expiration Date V isits Requested Visits Authorized [id number] Closed Auto-Generate d Referral 04/11/2021 05/11/2022 1 1 Reason Comments Established Patient Care Teams (unrecognized sec tion and content) Brown Sourer Relationship Specialty Start Date End Date Surinder Azul, CRACKING AND FANNING MACHINE OPERATOR [address] [place] [address] PCP - General Family Medicine 04/20/22 Lina Stewart Referring General Surgery 04/22/18 Charissa Stack MD, [address] [place] [address] Physician Radiation Oncology 06/01/18 Care Team (unrecognized sect ion and content) Care Team Personnel Name: SURINDER AZUL SUPERVISOR BOTTLE MACHINES - CRACKING AND FANNING MACHINE OPERATOR Position: P4 Advanced Practice Nurse Med Service: Employed Provider Member Role: Primary Care Physician Address: Address: [address] [place] [id number] Care Team Related Persons Name: BRAD WALLACE Address: Home [address] [place], [place] [id number] Address: [facility] [address] [place], [place] [id number] INFORMATION SOURCE (unrecogn ized section and content) DATE CREATED AUTHOR AUTHOR'S ORGANIZ ATION 06/09/2022 [facility] FOR RECORDS PERTAINING TO PATIENTS [...] BE BASED ON THE PRIMARY CLINICAL RECORDS. [facility]. provides no warranty or guarantee of the accuracy or completeness of information in this document.
[2023-08-16 06:23] VITALS: BP 134/79; PULSE 61; RESP 16; TEMP 36.4; O2SAT 98; BMI 35.6
[2023-08-16] MEDS: Lactated Ringers 1,000 ML 15 ML IV (06:32)
--- NOTE | 2023-08-16 06:50 | PCM.HP.STD ---
HPI - General HPI Narrative RICHY WALLACE, is a 68 F who presents for port placement. The patient had bilateral breast cancers which were removed. Patient was found to have positive nodes on the left and is here for port placement for chemotherapy initiation. [facility] Medical History Abdominal pain Abnormal mammogram of left breast Abnormal MRI, breast Arthritis Cancer Gastric reflux Hemorrhoids History of echocardiogram History of edema History of hiatal hernia Left breast mass Non-smoker Post-menopausal Triple negative breast cancer Wears glasses Home Medications acetaminophen 325 mg tablet (Tylenol) 1,000 mg (3.0769 x 325 mg) PO Q8H PRN Fever, headache, pain 07/24/18 [Rx Last Taken Unknown] cholecalciferol (vitamin D3) 25 mcg (1,000 unit) capsule 25 mcg PO DAILY 05/17/23 [History Last Taken 08/15/23] multivitamin 1 tab PO DAILY 05/17/23 [History Last Taken 08/15/23] nabumetone 500 mg tablet 500 mg PO BID 05/17/23 [History Last Taken 08/15/23 08:00] pantoprazole 40 mg tablet,delayed release 40 mg PO DAILY 05/17/23 [History Last Taken 08/16/23 05:30] BALANCE OF NATURE FRUITS 3 tab PO DAILY 07/14/23 [History Last Taken 08/15/23] BALANCE OF NATURE VEGETABLES 3 tab PO DAILY 07/14/23 [History Last Taken 08/15/23] Allergy/AdvReac Type Severity Reaction Status Date / Time Dressing: Non-Medicated Allergy Intermediate Rash Verified 08/16/23 06:19 Family History Mother Breast cancer Diabetes Grandmother Breast cancer Sister Breast cancer Father Cancer Prostate and metastatic bone Heart disease Surgical History H/O: hysterectomy History of foot surgery History of lymph node dissection of left axilla History of partial mastectomy of both breasts Total knee replacement status Social History Smoking Status: Never smoker alcohol intake: never ROS Constitutional Constitutional: Denies anorexia, chills or fatigue Eyes Eyes: Denies change in vision ENT HEENT: Denies abnormal hearing Cardiovascular Cardiovascular: Denies chest pain Respiratory/Chest Respiratory/Chest: Denies cough or dyspnea Gastrointestinal Gastrointestinal: Denies abdominal pain Genitourinary Genitourinary: Denies change in urinary stream Musculoskeletal Musculoskeletal: Denies abnormal gait Integumentary Integumentary: Denies jaundice Neurologic Neurologic: Denies abnormal gait Hematologic/Lymphatic Hematologic/Lymphatic: Denies easy bleeding Vital Signs Vital Signs Vital Signs: 08/16/23 06:22 08/16/23 06:23 Temperature 97.5 F L Temperature Source Temporal Pulse Rate 61 Respiratory Rate 16 Respiratory Pattern Normal Blood Pressure 134/79 H Blood Pressure Mean 97 Blood Pressure Source Monitor Blood Pressure Position Semi-Fowlers Blood Pressure Location Right Arm Pulse Ox 98 Oxygen Delivery Method Room Air Weight Weight: 201 lb 9.6 oz Body Mass Index (BMI) 35.6 Physical Exam Const oriented x3 and no apparent distress Resp normal respiratory effort Cardio regular rate and regular rhythm GI normal to inspection, nondistended, normoactive bowel sounds Assessment & Plan Assessment/Plan (1) Triple negative breast cancer: PLAN: I discussed right chest port placement the patient in detail. I discussed the risks including but not limited to bleeding, infection, injury other organs, pneumothorax. Patient understands the risks and is willing to proceed. Blu Kraus MD Pager: [facility] [address] [place] [address], [address] [place] [address] Office:
[2023-08-16] MEDS: Cefazolin 2 GM in 0.9% Normal Saline (100mL Bag) 100 ML IV (07:27)
[2023-08-16] MEDS: Bupivacaine Mpf 0.5% 30 ML VIAL (07:42)
[2023-08-16] MEDS: Lidocaine 1%/Epi 1:200 (30ml) 30 ML AMPUL (07:42)
[2023-08-16 08:00] VITALS: BP 120/79; BP 134/79; PULSE 65; RESP 16; TEMP 36.6; O2SAT 92
--- NOTE | 2023-08-16 08:03 | PCM.OPRPT ---
Report of Operation Date of Procedure: 08/16/23 Pre-Operative Diagnosis: Breast cancer need for vascular access port Post-Operative Diagnosis: Same Surgery/Procedure Performed:: Ultrasound and fluoroscopy guided right chest port placement utilizing right IJ Type of Anesthesia: Local MAC Estimated Blood Loss (mL): 5 Description of Procedure: After obtaining informed consent patient was brought back to the operating room MAC anesthesia was induced and the right chest and neck were prepped in normal sterile fashion. Ultrasound was used to evaluate both IJs and the right IJ was selected. Next, using a needle, the right IJ was accessed and a guidewire was passed on into the superior vena cava under fluoroscopy guidance. A small incision was made over the puncture site and the dilator introducer was placed over the guidewire. Next this was capped and the pocket was made for the port. 1% lidocaine with epinephrine was injected in the proposed port site. An incision was made with scalpel. Electrocautery was used to make a pocket under the skin and subcutaneous tissue. Hemostasis was obtained. Next, the catheter was tunneled up to the neck incision site and placed through the introducer. The peel-away introducer was removed and the position of the catheter was confirmed on fluoroscopy. Next, the catheter was trimmed and attached to the port with the locking device. Interrupted 2-0 Vicryl sutures were used to anchor the port to the chest wall and then the port was placed inside the pocket. The pocket was then flushed with saline and the port irrigated with saline. There was good blood return and the port flushed easily. Next, heparin was injected into the port. The skin was closed with subcutaneous interrupted 3-0 Vicryl sutures. A single 3-0 Vicryl sutures placed under the skin at the neck incision site. Steri-Strips were placed as well as op sites. Patient tolerated procedure well, was taken to PACU in stable condition. Chest x-ray will be obtained. Admit VTE Documentation VTE Mechan Device Prophylaxis: SCD's
--- NOTE | 2023-08-16 08:04 | DCINST_ITS ---
Discharge Instructions Procedure Port-A-Cath Diet Discharge Diet: Light diet - advance as tolerated (Pain medication may cause nausea. You should typically eat light foods as you take your pain medication.) Activity Discharge Activity: Return to Normal Activity and May Shower (with your bandage in place in 1-2 days after surgery. DO NOT SHOWER WHEN YOUR PORT IS ACCESSED.) Dressing / Incision Call your doctor if your incision/area has: Continuous Slow Oozing, Sudden Increased Bleeding, Increased Pain/ Swelling, Increased Redness and Foul Smelling Discharge Call your doctor if you observe: Fever of 101 or Higher Remove Dressing in: 2 days Cleanse incision/area with: Soap & Water Follow Up Care Please Follow Up With: Blu Kraus MD When: as needed [phone] Test Results: Test results from this visit will be discussed in further detail at your follow- up appointment, if applicable. Discharge Plan Admission Attending Provider: Blu Kraus Primary Care Provider: Surinder Azul NP Instructions Additional Instructions / Restrictions: Alternate ibuprofen and Tylenol for pain Discharge Orders/Prescriptions Prescriptions: No Action multivitamin Tablet 1 tab PO DAILY pantoprazole 40 mg tablet,delayed release (DR/EC) 40 mg PO DAILY nabumetone 500 mg tablet 500 mg PO BID cholecalciferol (vitamin D3) 25 mcg (1,000 unit) capsule 25 mcg PO DAILY acetaminophen [Tylenol] 325 MG tablet 1,000 mg PO Q8H PRN (Reason: Fever, headache, pain) 0RF BALANCE OF NATURE FRUITS 3 tab PO DAILY BALANCE OF NATURE VEGETABLES 3 tab PO DAILY Referrals / Follow Up: Surinder Azul NP, INSURANCE AGENCY MANAGER-C [Primary Care Provider] - Disposition Disposition (needs filled in before D/C Order can be placed): Home, Self Care
[2023-08-16 08:05] VITALS: BP 128/64; BP 134/79; PULSE 65; RESP 16; O2SAT 94
[2023-08-16 08:10] VITALS: BP 129/62; BP 134/79; PULSE 63; RESP 16; TEMP 36.6; O2SAT 93
--- NOTE | 2023-08-16 08:15 | RAD_ITS ---
STUDY: X-RAY CHEST REASON FOR EXAM: Female, 68 years old. PORT PLACEMENT TECHNIQUE: Single AP portable view of the chest. COMPARISON: Comparison is made with prior study of November 15, 2019. FINDINGS: A right-sided Port-A-Cath has been placed and the tip is in the right atrium. Surgical clips are seen in both axillary regions. The lungs are clear and expanded. There is no demonstrated pleural abnormality. Normal size heart. Normal mediastinum and christina. Normal visualized pulmonary arteries. Normal visualized aortic arch and descending thoracic aorta. There are diffuse degenerative changes of the visualized thoracic spine. Mild dextroscoliosis. Normal visualized ribs, clavicles, and shoulders. There is no demonstrated abnormality of the visualized soft tissue structures of the upper abdomen. RAD/Chest 1 View (Portable) IMPRESSION: The tip of the right portacatheter is in the right atrium. Surgical clips are seen in both axillary regions. Electronically Signed: Flakito Hernández MD at 9:09 EST ,
[2023-08-16 08:28] VITALS: BP 134/79
== END 2023-08-16 09:20 | disposition home or self-care (01) ==
LOC: SDC 05:55 → AC 05:58
PROVIDERS: PCP Nurse Practitioner Family; Referring Provider Surgery; Visit Provider Surgery
PROC: (CPT 36561; principal; 2023-08-16 07:15)
DX: C50.919 Malignant neoplasm of unspecified site of unspecified female breast (principal); Z80.3 Family history of malignant neoplasm of breast; Z90.13 Acquired absence of bilateral breasts and nipples; Z87.19 Personal history of other diseases of the digestive system; K21.9 Gastro-esophageal reflux disease without esophagitis
CPT/HCPCS: 36561; 00532; 71045; 77001; J7120; C1788; J2405

== ENCOUNTER → 2023-08-17 | Outpatient (CLI) | payer MEDICARE, OTHER, SELFPAY ==
--- NOTE | 2023-08-17 14:29 | CT_ITS ---
STUDY: CT CHEST, ABDOMEN T PELVIS WITH CONTRAST REASON FOR EXAM: Female, 68 years old. STAGING BREAST CA RADIATION DOSAGE (If Supplied By Facility): CTDIvol = ( 19.30 ) mGy, DLP = ( 1965.46 ) mGycm TECHNIQUE: Transaxial imaging was performed following intravenous administration of Oral and amp; IV Readi-CAT and amp; 100mL Isovue-300. Multiplanar coronal and sagittal images were reformatted. Individualized dose optimization techniques were used for this CT. COMPARISON: Comparison is made with prior CT scan of the abdomen and pelvis dated January 30, 2022. FINDINGS: CHEST A right-sided sneha catheter seen with the tip in the superior vena cava. Surgical clips are seen in the right axilla. There is a 3.4 cm x 1.9 cm well encapsulated fluid collection in the left axilla at the operative site most likely representing postoperative seroma. There is also evidence of a similar appearing well circumscribed fluid collection in the central portion of the right breast in keeping with prior surgery. The lungs are normal. There is no demonstrated pleural abnormality. Normal heart and pericardium. Normal mediastinum. Normal hilar regions. Normal unenhanced pulmonary arteries. Normal aorta arch and descending thoracic aorta. There are multi-level degenerative changes of the thoracic spine. ABDOMEN Normal liver. Normal gallbladder and extrahepatic biliary system. Normal spleen. Normal pancreas. Normal bilateral adrenal glands. Normal right kidney. Normal left kidney. Normal visualized stomach. Normal small intestine. There are scattered colonic diverticula consistent with diverticulosis. The appendix is visualized and appears normal. There is diffuse atherosclerotic calcification of the abdominal aorta, without a demonstrated aneurysm. Normal inferior vena cava. Normal retroperitoneum. Normal abdominal wall. There are mild degenerative changes of the visualized lumbar spine. PELVIS Normal urinary bladder. The patient is status post hysterectomy. Normal visualized small intestine. Normal visualized colon. There is no pelvic fluid. There is no pelvic lymphadenopathy or mass lesion. Normal visualized pelvic arteries. CT/CT Chest, Abd, Pel w/Contrast IMPRESSION: Status post right breast biopsy and right axillary surgery and postoperative changes as described above. No evidence of metastatic disease.. Electronically Signed: Flakito Hernández MD at 15:04 EST ,
--- OUTSIDE RECORDS SUMMARY | 2023-08-17 19:44 | XMS RPT_ITS | CCD ---
Author Name Unknown Address [address] [place] [address] Organization [facility] Care Team Providers Care Information Technology Security Manager Name Role Phone Lina Stewart Unavailable Be Esquivel DO Primary Care Provider Keysha tenisha Stack MD, MD, Daesung Unavailable LEON SINGLETON - SURINDER VIEIRA Primary Care Phys ician Lina Stewart Unavailable Sreekanth VILLALOBOS MD, Daesung Unavailable Surinder Azul [...] tab(s), 0 Refill(s), 02/04/22 11:04:00 EDT, Pharmacy: [facility]/pharmacy #[id number], Abdominal pain, LLQ Acute low back pain, [...] qDay, # 10 tab(s), 0 Refill(s), Pharmacy: [facility]/pharmacy #[id number], Acute low back pain, 158, cm, 01/30/22 10:42:00 EDT, Height Start Date: 01/30/22 Stop Date: 02/09/22 Status: Ordered Misc Medication (2 sources) Start: 01-26-2022 Misc Medication [facility], 0 Refill(s), 78.5 Start Date: 01/26/22 [...] 158.8 cm Jules Miner MD Work Phone: [place] 15252-09-2022 14:56-0500 Body temperature 98.91 [degF] Jules Miner MD Work Phone: [facility] 06-05-2022 14:56-0500 Body weight 91.63 kg Jules Miner MD Work Phone: [facility] 06-05-2022 14:56-0500 Diastolic blood pressure 83 mm[Hg] Jules Miner MD Work Phone: [facility] 06-05-2022 14:56-0500 Heart rate 76 /min Jules Miner MD Work Phone: [facility] 06-05-2022 14:56-0500 Systolic blood pressure 137 mm[Hg] Jules Miner MD Work Phone: [facility] Encounters Encounter Date Encounter Type Care Provider Facility Start: 06-05-2022 End: 06-05-2022 ambulatory JULES MINER Facility:[facility] Start: 06-05-2022 End: 06-05-2022 ambulatory Jules Miner MD Work Phone: Hematology/Oncology Procedures Date Procedure Procedure Detail Performing Clinician Start: 11-26-2021 Mri pelvis w/o & w/contrast material Sher Lenz MD Work Phone: Start: 06-05-2021 Adult depression scr eening assessment Mri (I-Stat/1.5t/3t) Work Phone: Start: 04-21-2018 Colonoscopy Mri (I-Sta t/1.5t/3t) Work Phone: Start: 04-21-2018 Colonoscopy SURINDER TO GHISLAINE SUPERVISOR COMPONENT ASSEMBLER - LACEWORKER Start: 01-03-2018 Arthroplasty SURINDER TO GHISLANIE SUPERVISOR COMPONENT ASSEMBLER - LACEWORKER Plan of Treatment Date Care Activity Detail Author Start: 04-11-2026 COLORECTAL CANCER SCREENING COLORECTAL CANCER SCREENING [facility] Start: 04-11-2026 SIGMOIDOSCOPY SIGMOIDOSCOPY [facility] Start: 06-05-2025 DIABETES SCREEN DIABETES SCREEN [facility] Start: 05-20-2024 DIABETES SCREEN DIABETES SCREEN [facility] Start: 06-05-2022 Adult depression scr eening assessment DEPRESSION SCREENING [facility] Start: 02-26-2022 Influenza vaccination INFLUENZA (#1) [facility] Start: 06-28-2021 ADVANCE DIRECTIVE DISCUSSION ADVANCE DIRECTIVE DISCUSSION [facility] Start: 06-28-2021 DEPRESSION ASSESSMENT DEPRESSION ASS ESSMENT [facility] Start: 04-21-2019 Colonoscopy COLONOSCOPY [facility] Start: 2018 BONE DENSITY BONE DENSITY [facility] Start: 2018 PNEUMOCOCCAL: 65+ (1 - PCV) PNEUMOCOCCAL: 65+ (1 - PCV) [facility] Start: 2003 SHINGRIX VACCINE (1 of 2) SHINGRIX V ACCINE (1 of 2) [facility] Start: 1998 COLOGUARD (FIT-DNA) COLOGUARD (FIT-D NA) [facility] Start: [address] COLONOGRAPHY [facility] Start: 1998 FECAL OCCULT BLOOD FECAL OCCULT BLOO D [facility] Start: 1998 LIPID SCREEN LIPID SCREEN [facility] Start: 1993 Mammography MAMMOGRAM [facility] Start: 1972 Urine microalbumin profile DTAP,TDAP ,TD (1 - Tdap) [facility] Start: 1959 PNEUMOCOCCAL: 65+ (1 - PCV) PNEUMOCOCCAL: 65+ (1 - PCV) [facility] Start: 1958 COVID-19 VACCINE (#1) COVID-19 VACCI NE (#1) [facility] Start: 02-09-1954 COVID-19 VACCINE (#1) COVID-19 VACCI NE (#1) [facility] Immunizations Immunization Date Immunization Notes Care Provider Fa george 05-10-2020 influenza, high-dose , quadrivalent vaccine (FLUZONE HIGH DOSE QUADRIVALENT) Mri (I-Stat/1.5t/3t) Work Phone: [facility] 05-12-2019 influenza, high dose seasonal, preservative-free Mri (I-Stat/1.5t/3t) Work Phone: [facility] 06-28-2009 diphtheria and tetan us toxoids, adsorbed for pediatric use SURINDER AZUL SUPERVISOR COMPONENT ASSEMBLER - LACEWORKER [facility] 06-28-2009 hepatitis B vaccine, unspecified formulation SURINDER SINGHPKINS SUPERVISOR COMPONENT ASSEMBLER - LACEWORKER [facility] Payers Date Payer Category Payer Medicare MEDICARE MEDICAR E A AND B [id number] 2020-Present [phone] [place] [address] Medicare [id number] 2020 Medicare MEDICARE MEDICAR E A AND B [id number] 2020-Present [phone] [place] [address] Medicare [id number] 2020 Medicare [id number] 2019 Medicare [id number] 2019 Unknown [employer] [place] [employer] [place] [employer] [place] [employer] [place] MEDICARE SUPPLEMENT [id number] 2019-Present [phone] [place] [address] [place] [address] [place] [address] Indemnity [id number] 2019 Unknown [employer] [place] [employer] [place] [employer] [place] MEDICARE SUPPLEMENT [id number] 2019-Present [phone] [place] [place] [address] Indemnity [id number] Social History Date Type Detail Facility Start: 04-29-2018 End: 11-14-2019 Tobacco smoking status NHIS Never smoked tobacco [facility] Start: 04-29-2018 Tobacco use and exposure Smoke less tobacco non-user [facility] Start: 06-05-2021 End: 06-05-2022 Alcohol intake Current non-drinker of alcohol (finding) [facility] Start: 1955 Sex Assigned At Not on file [facility] Sex Assigned At Sex [facility] Clinical Notes 11-26-2021 to 06-05-2022 Jules Miner MD - 06/05/2022 3:42 PM Carmenjeri Umair, RT(R) - 11/26/2021 8:30 AM FRANKTLcesar Barrientos RN - 11/26/2021 8:30 AM EDT Note Date & Type Note Facility 06-05-2022 Note HNO ID: [id number] Author: Jules Miner MD Service: ? Author Type: Physician Type: Progress Notes Filed: 06/07/2022 8:36 AM Note Text: PATIENT NAME: Cynthia Wallace. CLINIC NO: [id number]. ATTENDING PHYSICIAN: Jules Miner MD. DATE OF [...] Abs Lymph 1.00 - 4.00 k/uL 1.85 [place]% % 8.0 Abs [place] <0.87 k/uL 0.53 Eosin% % 1.0 Abs [...] clinical stage I (more content not included)... [facility] 06-05-2022 Note HNO ID: [id number] Author: Kiak Rivera, RT(R) Service: Radiology Author Type: Technologist [...] RT Paula(R) June 05, 2022 2:18 PM [facility] 06-05-2022 History of Present illness Narrative PATIENT NAME: Cynthia Wallace. CLINIC NO: [id number]. ATTENDING PHYSICIAN: Jules Miner MD. DATE OF [...] Abs Lymph 1.00 - 4.00 k/uL 1.85 [place]% % 8.0 Abs [place] <0.87 k/uL 0.53 Eosin% % 1.0 Abs [...] ISHA Lenz MD documented in this encounter [facility] 02-01-2022 Note . MICRO - Microbiology PROCEDURE: [...] Locations *1: This test was performed at: [address], [facility] ([place]) 11-26-2021 Note HNO ID: [id number] Author: Marisel Barrientos RN Service: Radiology Author [...] DATE: November 26, 2021 TIME: 8:56 AM [facility] 11-26-2021 Note HNO ID: [id number] Author: JAKOB Sosa) Service: Radiology Author Type: [...] RT Merari(R) November 26, 2021 10:14 AM [facility] 11-26-2021 History of Present illness Narrative [...] TIME: 8:56 AM documented in this encounter [facility] Evaluation + Plan note No data available for this section [facility] documented in this encounter [facility] Diagnosis Anal cancer (HCC)- Primary Malignant neoplasm of anus, unspecified site documented [facility] encounter [facility] Discharge instructions No data available for this section [facility] Progress note No data available for this section [facility] Reason for Referral Specialty Diagnoses / Procedures Referred By Contac t Referred To Contact MR IMAGING Diagnoses Malignant neoplasm of rectosigmoid junction (HCC) Procedures MRI RECTUM WO/W IVCON MRI PELVIS W/WO CONTRAST Sher Lenz MD [address] [place] [address] Mr Imaging Referral ID Status Reason Start Date Expiration Date V isits Requested Visits Authorized [id number] Closed Auto-Generate d Referral 04/11/2021 05/11/2022 1 1 Advance Directives No Advanced Directives Records FoundDocuments on File Type Date Recorded Patient Corporate Ethics Officer Expl anation Advance Directive(s) 08/08/2019 1:14 PM [...] or prosecute any alcohol or drug abuse patient.[facility] the event this information is protected by the Federal Confidentiality of Alcohol and Drug Abuse Patient Records regulations: The Federal rules restrict any use of the information to criminally investigate or prosecute any alcohol or drug abuse patient.[facility] Reason for Visit (unrecogniz ed section and content) Specialty Diagnoses / Procedures Referred By Nunu don Referred To Contact MR IMAGING Diagnoses Malignant neoplasm of rectosigmoid junction (HCC) Procedures MRI RECTUM WO/W IVCON MRI PELVIS W/WO CONTRAST Sher Lenz MD [address] [place] [address] Mr Imaging Referral ID Status Reason Start Date Expiration Date V isits Requested Visits Authorized [id number] Closed Auto-Generate d Referral 04/11/2021 05/11/2022 1 1 Reason Comments Established Patient Care Teams (unrecognized sec tion and content) Information Technology Security Manager Relationship Specialty Start Date End Date Surinder Azul, LACEWORKER [address] [place] [address] PCP - General Family Medicine 04/20/22 Lina Stewart Referring General Surgery 04/22/18 Charissa Stack MD, [address] [place] [address] Physician Radiation Oncology 06/01/18 Care Team (unrecognized sect ion and content) Care Team Personnel Name: SURINDER AZUL SUPERVISOR COMPONENT ASSEMBLER - LACEWORKER Position: P4 Advanced Practice Nurse Med Service: Employed Provider Member Role: Primary Care Physician Address: Address: [address] [place] [id number] Care Team Related Persons Name: BRAD WALLACE Address: Home [address] [place], [place] [id number] Address: [facility] [address] [place] [id number] INFORMATION SOURCE (unrecogn ized section and content) DATE CREATED AUTHOR AUTHOR'S ORGANIZ ATION 06/09/2022 [facility] FOR RECORDS PERTAINING TO PATIENTS WHO [...] BE BASED ON THE PRIMARY CLINICAL RECORDS. [facility]. provides no warranty or guarantee of the accuracy or completeness of information in this document.
== END | disposition home or self-care (01) ==
LOC: CT 14:26
PROVIDERS: PCP Nurse Practitioner Family; Referring Provider Internal Medicine Medical Oncology; Visit Provider Internal Medicine Medical Oncology
DX: C50.812 Malignant neoplasm of overlapping sites of left female breast (principal)
CPT/HCPCS: 71260; 74177; Q9967

== ENCOUNTER 2023-10-11 10:00 | Outpatient (RCR) | payer MEDICARE, OTHER, SELFPAY ==
--- NOTE | 2023-08-25 18:02 | HP.OTEVAL ---
Patient's Visit Information Visit Information Visit Information: RICHY WALLACE is a 68 year old F, referred to Occupational Therapy by Dr. Romain Griffin MD, with a diagnosis of cancer. Date of Evaluation: 08/25/23 Occupational Therapist: BRADEN Loomis/Precious, CHT Subjective Subjective: This 68 year old female was seen for OT eval with dx of lymphedema and ROM assessment: bilateral breast partial mastectomy on 07/22/2023 pt states she felt good following her 1st chemo now every 21 days- will have radiation possibly following chemo. Wednesday night very bad pain has tingling in triceps nausea causing drinking water eating smaller meals snacks - ADLs Comments: anal tears painful with BM and taking Dreft bath to help with soreness and wounds on her bottom. ROM Shoulder: right 140* left 140* ROM Comments: pt states she feels tightness with her ROM Lymphedema (Circumferential Measure) MCP: right 19cm left 19cm Wrist: right 15cm left 14.5cm Lower forearm: right 17.5cm left 17cm Largest forearm: right 25.5cm left 25cm Elbow: right 25cm left 25.5cm Largest humerus: right 32cm left 33cm Axcillary: right 33cm left 35cm Upper Exremity Comments: pt demo with light increase in left UE some tingling at times Goals Goal: Patient will demonstrate adequate knowledge of skin care and precautions by the end of the first week.: Yes Goal: Patient will demonstrate adequate knowledge of therapeutic exercises by discharge.: Yes Goal: Patient will select an appropriate compression garment and demonstrate adequate knowledge of correct donning technique, care and wearing schedule by discharge.: Yes Goal: Patient will voice understanding of need to replace compression garment every four to six months by discharge.: Yes Goal: Patient will demonstrate ROM WFL by discharge.: Yes Rehabilitation General Assessment: pt demo with a stage I lymphedema of left UE. pt demo with a decrease in bilateral shoulder flexion with pulling on incisions- limiting her IND with ADLS- Medication is causing joint pain as well as fatigue. pt demo with slight increase in left UE circumference above proximal elbow. pt demo need for skilled OT services 3-4 visits to ed. pt on energy conservation, lymphedema stimulation ex., self manual lymphedema massage as well as skin care and precautions. pt demo understanding and agrees to POC. Rehabilitation Potential: Good Anticipated Interventions Anticipated Interventions: A/AAROM/PROM, Education re Diagnosis, Education re Life-long lymphedema Management, Education re Skin Care and Precautions, Education re Self Massage Techniques, Education re Correct Donning Tech,Care&Wearing Sched Comp Garments and Home Program Visit Plan TEXT: Thank you for the opportunity to evaluate your patient. For Medicare and Medicare HMO plans, please review the plan of care and approve it. It will need to be FAXED BACK to us at [phone] for Medicare purposes. Please let me know if there are questions or concerns regarding this plan of care. Physician Signature: Date:
--- NOTE | 2024-01-21 08:48 | HP.OT.NRP ---
Patient Information Patient Information: RICHY WALLACE was seen in my office for initial evaluation on 08/25/23. The following Plan of Care was established for this patient: POC Established Plan: pt to schedule after radiation to ensure ROM and will check measurements Anticipated Interventions Anticipated Interventions: A/AAROM/PROM, Education re Diagnosis, Education re Life-long lymphedema Management, Education re Skin Care and Precautions, Education re Self Massage Techniques, Education re Correct Donning Tech,Care&Wearing Sched Comp Garments and Home Program Last Seen Last Seen: This patient was last seen in our office 10/11/23. Pertinent comments regarding their Occupational therapy will appear below: Pt was seen for 3 OT session Last being seen on 10/11/23. No further apts scheduled at this time and due to time lapse in services pt is D/C. At this point I will be discontinuing this patient from occupational therapy. I would be happy to see this patient again in the future if found appropriate by the physician. Thank you! Myesha Johnson, OTR/L, CHT
== END 2023-10-11 19:00 | disposition home or self-care (01) ==
LOC: OT 10:00
PROVIDERS: PCP Nurse Practitioner Family; Referring Provider Internal Medicine Medical Oncology; Visit Provider Internal Medicine Medical Oncology
DX: C50.812 Malignant neoplasm of overlapping sites of left female breast (principal); I89.0 Lymphedema, not elsewhere classified
CPT/HCPCS: 97140; 97166; 97530

== ENCOUNTER → 2024-02-10 | Outpatient (CLI) | payer MEDICARE, OTHER, SELFPAY ==
--- NOTE | 2024-02-10 08:00 | RAD_ITS ---
STUDY: AIR CONTRAST UPPER GI SERIES and esophagram. REASON FOR EXAM: Female, 68 years old. SPASMS ESOPH, INTERMITTENT, HX RECENT RADIATION BREAST CA FLUOROSCOPY TIME (if supplied): (1 minute and 20 seconds) minutes/seconds. 43 fluoroscopic images were obtained. TECHNIQUE: SINGLE CONTRAST AND AIR CONTRAST FLUOROSCOPIC IMAGES. COMPARISON: None. FINDINGS: The cervical esophagus demonstrates normal motility without aspiration. There is no stricture or extrinsic mass effect. No intraluminal polypoid mass is identified. The thoracic esophagus distends well without stricture or mucosal fold thickening. No mucosal ulcerations are identified. There is no extrinsic mass effect. There are no diverticula. No hiatal hernia or gastroesophageal reflux was identified. The patient ingested a 12 mm tablet of barium without any difficulty. The stomach distends well without mucosal fold thickening or mucosal ulceration. There is no intraluminal mass. The duodenal bulb is freely distensible without deformity or ulceration. The duodenal sweep is normal in position and caliber. RAD/Upper GI w/BA Swallow IMPRESSION: Normal air-contrast esophagram and upper GI series. Electronically Signed: Flakito Hernández MD at 8:53 EDT ,
== END | disposition home or self-care (01) ==
LOC: RAD 07:44
PROVIDERS: PCP Nurse Practitioner Family; Referring Provider Nurse Practitioner Family; Visit Provider Nurse Practitioner Family
DX: R13.10 Dysphagia, unspecified (principal); C50.912 Malignant neoplasm of unspecified site of left female breast; K21.9 Gastro-esophageal reflux disease without esophagitis
CPT/HCPCS: 74246

== ENCOUNTER 2024-03-08 11:39 | Day surgery (SDC) | payer MEDICARE, OTHER, SELFPAY ==
[2024-03-08 12:28] VITALS: BP 143/58; PULSE 63; RESP 16; TEMP 36.4; O2SAT 99; BMI 35.9
[2024-03-08] MEDS: Lactated Ringers 1,000 ML 15 ML IV (12:34)
--- NOTE | 2024-03-08 13:14 | PCM.HP.STD ---
HPI - General HPI Narrative RICHY WALLACE, is a 68 F who presents with left upper extremity lymphedema. Presents today for lymphogram Current Encounter (DATE OF SURGERY H&P UPDATE): I saw and examined the patient this morning in pre-operative holding. We discussed risks and benefits of today's surgery and they would like to proceed. NO CHANGE in health history since last seen and evaluated. Ready to proceed with surgery. [facility] Medical History Anemia Cough Constipation 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 Encounter for education Post-menopausal History of edema Abnormal MRI, breast Wears glasses Cancer Arthritis History of hiatal hernia Gastric reflux Non-smoker History of echocardiogram Triple negative breast cancer Abnormal mammogram of left breast Left breast mass Hemorrhoids Abdominal pain Home Medications ?Medication ?Instructions ?Recorded ?Last Taken ?Type acetaminophen 325 mg tablet 1,000 mg (3.0769 x 325 mg) PO Q8H 07/24/18 Unknown Rx (Tylenol) PRN Fever, headache, pain cholecalciferol (vitamin D3) 25 25 mcg PO DAILY 05/17/23 08/15/23 History mcg (1,000 unit) capsule multivitamin 1 tab PO DAILY 05/17/23 03/08/24 History pantoprazole 40 mg tablet,delayed 40 mg PO DAILY 05/17/23 03/08/24 History release BALANCE OF NATURE FRUITS 3 tab PO DAILY 07/14/23 08/15/23 History BALANCE OF NATURE VEGETABLES 3 tab PO DAILY 07/14/23 08/15/23 History lidocaine-prilocaine 2.5 %-2.5 % 1 applic topical ONCE PRN port 08/18/23 Unknown Rx topical cream access 30 days #30 grams ondansetron 8 mg disintegrating 8 mg PO Q8H PRN nausea and 08/18/23 Unknown Rx tablet vomiting #30 tabs prochlorperazine maleate 10 mg 10 mg PO Q6H PRN nausea and 08/18/23 Unknown Rx tablet vomiting #30 tabs docusate sodium 100 mg capsule 100 mg PO DAILY PRN 09/09/23 Unknown History (Stool Softener) sennosides 8.6 mg capsule (senna) 8.6 mg PO QHS 09/09/23 Unknown History potassium phosphate, monobasic 500 1,000 mg (2 x 500 mg) PO DAILY #14 10/14/23 Unknown Rx mg soluble tablet tabs pseudoephedrine-acetaminophen 30 cap PO PRN 10/14/23 Unknown History mg-500 mg capsule guaifenesin 1,200 mg tablet, 1,200 mg PO BID 11/04/23 Unknown History extended release 12 hr promethazine 6.25 mg/5 mL oral 6.25 mg PO Q6H PRN 11/04/23 Unknown History syrup celecoxib 200 mg capsule (Celebrex) 200 mg PO DAILY 12/22/23 Unknown History tamoxifen 20 mg tablet 20 mg PO DAILY #90 tabs 01/24/24 Unknown Rx Allergy/AdvReac Type Severity Reaction Status Date / Time Dressing: Non-Medicated Allergy Intermediate Rash Verified 03/08/24 12:22 Family History Mother Breast cancer Diabetes Grandmother Breast cancer Sister Breast cancer Father Cancer Prostate and metastatic bone Heart disease Surgical History History of partial mastectomy of both breasts History of lymph node dissection of left axilla History of foot surgery H/O: hysterectomy Total knee replacement status Social History Smoking Status: Never smoker alcohol intake: never substance use type: does not use additional social history: pt denies vaping, denies marijuana use, denies edibles, denies aspirin and ibuprofen use Vital Signs Vital Signs Vital Signs: 03/08/24 12:28 03/08/24 12:28 Temperature 97.5 F L Temperature Source Temporal Pulse Rate 63 Respiratory Rate 16 Respiratory Pattern Normal Blood Pressure 143/58 H Blood Pressure Mean 86 Blood Pressure Source Monitor Blood Pressure Position Semi-Fowlers Blood Pressure Location Right Arm Pulse Ox 99 Oxygen Delivery Method Room Air Weight Weight: 202 lb 13.204 oz Body Mass Index (BMI) 35.9 Physical Exam Narrative Left upper extremity swelling. Assessment & Plan Assessment/Plan (1) Lymphedema: PLAN: INTERVAL H&P PLAN, DATE OF SURGERY: We will proceed with LYMPHOGRAM today.
[2024-03-08] MEDS: diazePAM 2 MG Tablet PO (13:30)
--- NOTE | 2024-03-08 13:37 | NURSING ---
THIS RN GAVE 2MG PO VALIUM TO PT AT 1330 BUT UNABLE TO CHART OFF ON EMAR D/T DR PAYNE BEING IN CHART. PHARMACY NOTIFIED AND NATO MARTINEZ MADE AWARE.
[2024-03-08 14:25] VITALS: BP 143/58; BP 143/84; PULSE 77; RESP 16; TEMP 36.3; O2SAT 100
--- NOTE | 2024-03-09 13:43 | PCM.OP.BLANK ---
Operative Report Date of Procedure: 03/08/24 PROCEDURE REPORT INDOCYANINE GREEN LYMPHOGRAPHY NAME: Cynthia Wagoner AGE: 68 YO FM PROCEDURE DATE: 08 Mar 2024 SURGEON(S)/RESPIRATORY THERAPY INSTRUCTOR(S): Celso Rod MD PROCEDURE: Indocyanine green lymphography (ICGL) of LEFT UPPER EXTREMITY (CPT 62280) Last ICGL date: ICGL niave ? PROCEDURE INDICATIONS: This is a 68 year-old with history and exam findings consistent with [place] stage II of the left extremity lymphedema following a left axillary lymph node dissection for breast cancer treatment..? ICG lymphography was offered for definitive diagnosis and severity staging.?? The rational, alternatives, the risks and benefits of the proposed procedure were thoroughly discussed.? The patient expressed clearly understanding of what discussed.? A consent form was signed. ? TECHNIQUE: The patient was taken to the operating room and placed in supine position.? 0.25% indocyanine green solution was injected, 0.1 cc per injection site, with a total of 0.4 cc injected. ? Injections sites: LEFT Hand- webspaces (two) ?- Radial and ulnar side of wrist Scanning was performed with SPY machine. FINDINGS: Grading of [facility] Stage 3 with few patent lymphatic vessels and extensive dermal backflow in the forearm. IMMEDIATE SCAN (3 minutes) Reach of ICG: To the axilla Number of linear channels: 4 in the arm, 2 in the forearm Orientation of the linear channels normal?: along axis of the limb Any reticular (tortuous) channels: yes, both forearm channels Any collaterals: Unclear Dermal backflow: Yes, dermal backflow pattern diffusely in the volar, radial, and ulnar forearms (see below) Improved as compared to the last scan?: N/A What improved?: N/A Volar Forearm Radial Forearm Ulnar Forearm Dorsal Forearm Anterior Arm Lateral Arm Posterior arm Axilla
== END 2024-03-08 14:45 | disposition home or self-care (01) ==
LOC: SDC 11:41 → AC 11:42
PROVIDERS: PCP Nurse Practitioner Family; Referring Provider Surgery Plastic and Reconstructive Surgery; Visit Provider Surgery Plastic and Reconstructive Surgery
PROC: (CPT 38790; principal; 2024-03-08 13:10)
DX: I89.0 Lymphedema, not elsewhere classified (principal); Z80.3 Family history of malignant neoplasm of breast; Z79.1 Long term (current) use of non-steroidal anti-inflammatories (NSAID); Z85.3 Personal history of malignant neoplasm of breast
CPT/HCPCS: 38790; J7120

== ENCOUNTER 2024-03-29 08:48 | Day surgery (SDC) | payer MEDICARE, OTHER, SELFPAY ==
[2024-03-29] VITALS (9 sets, daily range): BP systolic 117–148; BP diastolic 61–87; PULSE 63–106; RESP 16–17; TEMP 36.4–36.8; O2SAT 92–100; BMI 36.1
--- NOTE | 2024-03-29 09:13 | PCM.PRE.AN2 ---
ASA Classification* ASA Classification ASA Classification: 2 Assessment & Plan Anesthesia* Anesthesia Assessment Anesthesia Assessment: Discussed sedation and/or anesthesia options, risks, benefits, and alternatives with patient/parents/legal guardian/POA. Questions invited. The patient/parents/legal guardian/POA seems to understand and agrees to proceed with anesthesia plan. Reviewed the physical assessment, medical history, allergy history and patient home medications list prior to surgery/procedure/anesthetic and documented any changes. Performed airway and anesthesia risk assessments. Anesthesia Type Anesthesia Type: General (see written pre anesthesia record for full assessment) Anesthesia Focused Assessment* Airway Assessment Mouth opens: >3 cm Mallampati Score: II Focused Labs Anesthesia Preop lab: CBC WBC 4.1 K/mm3 (4.4-11.0) L 01/24/24 13:48 RBC 4.39 M/mm3 (4.2-5.4) 01/24/24 13:48 Hgb 13.0 g/dL (12.0-15.0) 01/24/24 13:48 Hct 38.9 % (37-47) 01/24/24 13:48 Plt Count 240 K/mm3 (150-450) 01/24/24 13:48 CHEMISTRY Potassium 3.5 mmol/L (3.5-5.1) 01/24/24 13:48 Sodium 140 mmol/L (136-145) 01/24/24 13:48 Magnesium 2.1 mg/dL (1.6-2.6) 11/04/23 10:14 Phosphorus 3.2 mg/dL (2.5-4.9) 11/04/23 10:14 BUN 16 mg/dL (7-18) 01/24/24 13:48 Creatinine 1.01 mg/dL (0.55-1.02) 01/24/24 13:48 Glucose 144 mg/dL (74-106) H 01/24/24 13:48 COAG PT 13.8 SECONDS (11.7-14.9) 11/15/19 17:50 Pre-Assessment Diagnosis/Proposed Procedure Planned Operative Procedure(s): LYMPHOVENOUS ANASTOMOSIS FOR REAPAIR OF LEFT UPPER EXTREMITY LYMPHATICS Anesthesia History Anesthesia History - composition roofer: Anesthesia History - composition roofer Hx Hospitalization Yes: [facility]GERY 03/23/24 10:08 Any Problems With Anesthesia No 03/23/24 10:08 Cholinesterase deficiency No 03/23/24 10:08 You/Your Family Experience No 03/23/24 10:08 fever (hyperthermia) with Relationship Recent Exposure to Contagious No 03/08/24 12:28 Disease Does patient have nerve No 03/23/24 10:08 stimulator Patient instructed to have device shut off --Does patient have Pacemaker or ICD? When Was Last Pacemaker Check QUESTION #4 FULL TEXT: You/Your Family Experience fever (hyperthermia) with Anesthesia Last Oral Intake Last Oral intake: Last Oral Intake NPO since Meds taken in AM with sips of water? Meds patient instructed to take am of surgery PONV PONV - composition roofer: PONV - composition roofer Female Yes 03/23/24 10:08 HX of Motion Sickness Yes 03/23/24 10:08 HX of N/V After Surgery No 03/23/24 10:08 Non-Smoker Yes 03/23/24 10:08 Duration of Surgery greater Yes 03/23/24 10:08 than 60 minutes Number of Risk Factors 4 03/23/24 10:08 PONV Score Severe Risk 03/23/24 10:08 Height & Weight Height & Weight: Anesthesia: Height & Weight Height 5 ft 3 in 03/13/24 08:12 Respiratory Assessment Respiratory Assessment - composition roofer: Respiratory Tract Infection Hx - composition roofer Hx Respiratory Tract Infection No 03/23/24 10:08 STOP Sleep Apnea STOP Sleep Apnea - composition roofer: STOP Sleep Apnea - composition roofer Hx Hypertension No 03/23/24 10:08 Hx Sleep Apnea No 03/23/24 10:08 CPAP No 03/08/24 12:34 BIPAP Do you snore loudly (louder No 03/23/24 10:08 than talking or can be heard Do you often feel tired/ No 03/23/24 10:08 fatigued/ sleepy during daytime? Has anyone observed you stop No 03/23/24 10:08 breathing during sleep? STOP Results Negative 03/23/24 10:08 QUESTION #5 FULL TEXT : Do you snore loudly (louder than talking or can be heard through closed doors)? 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 Specify any problems Hx of Preganancy in last 3 No 03/23/24 10:08 Months Nurse Filling Out Transfusion [id number] 03/23/24 10:08 & Questions: Date: 03/23/24 03/23/24 10:08 Time: 10:11 03/23/24 10:08 Patient unable to answer at this time (ie. confused, unrespo /Reproduction History /Reproductive History - composition roofer: /Reproductive Hx- composition roofer Hx Now Gestational Age (in weeks): EDC: Hx Hx Para Hx Section SAB No 03/08/24 12:34 Active Medications Active Medications: Current Medications Generic Name Dose Route Start Last Admin Trade Name Freq PRN Reason Stop Dose Admin Cefazolin Sodium 2 gm/ Sodium 110 mls @ 150 mls/hr 03/29/24 10:15 Chloride IV 03/29/24 10:58 PREOP ONE Lactated Ringer's 1,000 mls @ 15 mls/hr 03/29/24 09:00 IV .Q48H RIP PFSH Medical History Anemia Cough Constipation 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 Encounter for education Post-menopausal History of edema Abnormal MRI, breast Wears glasses Cancer Arthritis History of hiatal hernia Gastric reflux Non-smoker History of echocardiogram Triple negative breast cancer Abnormal mammogram of left breast Left breast mass Hemorrhoids Abdominal pain Home Medications ?Medication ?Instructions ?Recorded ?Last Taken ?Type cholecalciferol (vitamin D3) 25 25 mcg PO DAILY 05/17/23 08/15/23 History mcg (1,000 unit) capsule multivitamin 1 tab PO DAILY 05/17/23 03/08/24 History pantoprazole 40 mg tablet,delayed 40 mg PO DAILY 05/17/23 03/08/24 History release BALANCE OF NATURE FRUITS 3 tab PO DAILY 07/14/23 08/15/23 History BALANCE OF NATURE VEGETABLES 3 tab PO DAILY 07/14/23 08/15/23 History celecoxib 200 mg capsule (Celebrex) 200 mg PO DAILY 12/22/23 Unknown History tamoxifen 20 mg tablet 20 mg PO DAILY #90 tabs 01/24/24 Unknown Rx famotidine 40 mg tablet 40 mg PO QHS 03/23/24 Unknown History rivaroxaban 10 mg tablet (Xarelto) 10 mg PO QDAY 28 days #28 tabs 03/24/24 Unknown Rx apixaban 2.5 mg tablet (Eliquis) 2.5 mg PO BID post op 03/28/24 Unknown Rx anticoagulant #60 tabs Allergy/AdvReac Type Severity Reaction Status Date / Time Dressing: Non-Medicated Allergy Intermediate Rash Verified 03/24/24 11:02 Family History Mother Breast cancer Diabetes Grandmother Breast cancer Sister Breast cancer Father Cancer Prostate and metastatic bone Heart disease Surgical History History of partial mastectomy of both breasts History of lymph node dissection of left axilla History of foot surgery H/O: hysterectomy Total knee replacement status Social History Smoking Status: Never smoker alcohol intake: never substance use type: does not use additional social history: pt denies vaping, denies marijuana use, denies edibles, denies aspirin and ibuprofen use Review of Systems (Anesthesia) ROS Narrative System reviewed and no additional complaints, except as documented.
[2024-03-29] MEDS: Lactated Ringers 1,000 ML 15 ML IV (09:18)
--- NOTE | 2024-03-29 09:37 | OP.PCM_ITS ---
Problems Associated Problem List Diagnoses (1) Lymphedema: Operative Report Date of Procedure: 03/29/24 LYMPHEDEMA RECONSTRUCTION OPERATIVE REPORT NAME: Cynthia Wagoner, 68 YO FM SURGERY/ PROCEDURE DATE: 29 March 2024 INCISION/ PROCEDURE START TIME: 12:41 pm INCISION CLOSE/ PROCEDURE ENDTIME: 5:14 pm (4 hours 27 minutes) SURGEON(S)/GROUP WORK PROGRAM AIDE(S): Celso Rod MD, Chester Kaufman (LODGE ATTENDANT), Minda Gill (LODGE ATTENDANT) ANESTHESIA: general OPERATION: 1.Mapping of superficial lymphatics in left upper extremity using indocyanine green lymphography (CPT: 30063, injection procedure involving the lymphatic system) 2. Mapping of superficial venous system in left extremity using vein visualization system (vein finder) 3. Lymphatic reconstruction with supermicrosurgical lymphaticovenular anastomosis (LVA) with end-to-end anastomoses (0.6 mm lymphatic and venule) created with left dorsal/radial mid-forearm exploratory incision dissected (CPT 24605, repair of upper extremity blood vessel) 4. Lymphatic reconstruction with supermicrosurgical lymphaticovenular an astomosis (LVA) with two intussuscepted lymphatics into larger vein (octopus technique) anastomoses (one 0.5 mm lymphatic and one 0.6 mm lymphatic into 1 mm venule) created with left volar/ulnar mid-forearm exploratory incision dissected (CPT 87601) 5. Lymphatic reconstruction with supermicrosurgical lymphaticovenular anastomosis (LVA) with with two intussuscepted lymphatics into larger vein (oct opus technique) anastomoses (two 0.5 mm lymphatics into 1 mm venule) created with left volar/radial mid-forearm exploratory incision dissected (CPT 37186) 6. Simple closure of two separate exploratory sites for LVA (unable to find sufficient vein/lymphatic for reconstruction) located on the left dorsal and volar mid forearm, 8 cm total ([id number]) 7. Use of the microscope in the operating room for the above procedure on the left forearm (CPT 42753) PREOPERATIVE DIAGNOSIS: Lymphedema of the left upper extremity after axillary dissection for breast cancer POSTOPERATIVE DIAGNOSIS: Same as the preoperative diagnosis OPERATIVE INDICATIONS: This is a 68 YOFM with ICG lymphographically-confirmed diagnosis of lymphedema involving the left upper extremity. After discussion of treatment options including surgical versus nonsurgical treatments and various surgical procedures, supermicrosurgical lymphaticovenular anastomosis was determined to the treatment of choice.? Planned procedure, risks, benefits alternatives, indications, limitations, possible complications of the surgery were discussed with the patient thoroughly.? All questions raised were answered to satisfaction.? The patient expressed unequivocal understanding and would like to proceed with surgery.? A consent form was signed. OPERATIVE PROCEDURE: The patient was brought to the operating room and placed in supine position.? SCDs were placed. Preoperative antibiotic was administered. General anesthesia was induced. ICG mapping lymphography was performed by injecting 0.25% ICG solution intradermally and circumferentially in distal to proximal sequence . After each circumferential injection, immediate scanning with SPY was performed. Linear patterns were seen, suggestive of functioning lymph vessels, and were marked on the skin; however, many of these channels in the forearm, particularly in the volar forearm, -ended into areas of dermal backflow (see lymphogram from the start of the surgery), which was significantly worse than it was one month ago on her previous imaging. ? Next, all of superficial veins adjacent to the mapped linear patterns were visualized and marked with a near-infrared vein visualization system. Vein scanning was performed from distal to proximal, from medial to lateral, and from volar to dorsal aspects. Incisions were then strategically planned at locations in which both lymph vessels and veins were present, preferably in area just distal to a vein valve, and with lymph vessels being qualitatively acceptable. The high-power surgical microscope was draped. The operative site was prepped and draped in standard sterile fashion. In each of the incisions, the procedure was performed as below.? 0.05 cc Lymphazeurin was injected 2 cm distal to the planned incision.? The incision was infiltrate with 0.05 cc of 0.25% bupivucaine with 1:200,000 epinephrine.? The incision was made with #15 scalpel in partial- thickness, then completed to full-thickness with electrocautery using a [place] tip.? Using a microdissector, superficial fat and deep fat layers were thoroughly dissected in search of lymph vessels and superficial venules.? After identification of lymph vessels/veins, we determined the optimal anastomotic configuration to effect optimal lymph-vein pressure gradient and drainage.? The supermicrosurgical anastomosis was performed with the microscope set to ~30X magnification level and with 11-0 nylon.? Suture placement continued until leak- proof anastomosis was achieved. ? In incision #1 (Dorsal Ulnar Incision), no LVAs were completed because no viable lymphatic vessel was identified during our dissection.? In incision #2 (Dorsal Radial Incision), one LVA was created using 0.6 mm lymph vessel anastomosed end-to-end with a 0.6 mm vein with washout/backflow.? In incision #3 (Volar Ulnar Incision), one large LVA was made using two intussuscepted lymphatics into larger vein (octopus technique) anastomoses (one 0.5 mm lymphatic and one 0.6 mm lymphatic into 1 mm venule) with washout/backflow.? In incision #4 (Volar Mid- forearm Incision), one large LVA was created using two intussuscepted lymphatics into larger vein (octopus technique) anastomoses (two 0.5 mm lymphatics into 1 mm venule) with washout/backflow.? In incision #5, no LVAs were created because there was a lack of venules of the right size/caliber for an LVA.? All wounds were closed with 4-0 nylon using horizontal mattress technique.? Care was taken to avoid impinging the LVAs.? Layered compression system was applied from the base of the fingers to the shoulder with Kerlix roll was applied in figure-of-8 fashion.? Next, KELLY wrap compression sleeve was applied to approximately 10 mmHg. The digits were observed for ~10 minutes to ensure absence of venous congestion. The patient tolerated the procedure well, and was extubated in the operating room and brought to the recovery room in good condition.? There were no immediate complications. At the completion of the case, all counts were correct. ? Estimated Blood Loss: Minimal Findings: As above Specimens: None Drains: None Complications: No immediate post-operative complications IV antibiotics: 2 grams IV ancef at the start and at 4 hours during the case. Preoperative antibiotics: Ancef 2 g IVF: 1700 LR UOP: 1 liter ([place] placed and removed) Post-operative plan: Patient will keep compression on left upper extremity and elevate. She is to see the lymphedema specialist on Wednesday, 31 Mar 2024, for removal of compression from the operating room and site check, then placement of compression wrap again. She can remove compression only for showering thereafter for the next month. She will f/u with me in clinic next week. ?
--- NOTE | 2024-03-29 10:44 | HP.PCM.SX_ITS ---
HPI - General HPI Narrative RICHY WALLACE, is a 68 F who presents WITH LEFT UPPER EXTREMITY LYMPHEDEMA. Current Encounter (DATE OF SURGERY H&P UPDATE): I saw and examined the patient this morning in pre-operative holding. We discussed risks and benefits of today's surgery and they would like to proceed. NO CHANGE in health history since last seen and evaluated. Ready to proceed with surgery. [facility] Medical History Anemia Cough Constipation 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 Encounter for education Post-menopausal History of edema Abnormal MRI, breast Wears glasses Cancer Arthritis History of hiatal hernia Gastric reflux Non-smoker History of echocardiogram Triple negative breast cancer Abnormal mammogram of left breast Left breast mass Hemorrhoids Abdominal pain Home Medications ?Medication ?Instructions ?Recorded ?Last Taken ?Type cholecalciferol (vitamin D3) 25 25 mcg PO DAILY 05/17/23 08/15/23 History mcg (1,000 unit) capsule multivitamin 1 tab PO DAILY 05/17/23 03/08/24 History pantoprazole 40 mg tablet,delayed 40 mg PO DAILY 05/17/23 03/08/24 History release BALANCE OF NATURE FRUITS 3 tab PO DAILY 07/14/23 08/15/23 History BALANCE OF NATURE VEGETABLES 3 tab PO DAILY 07/14/23 08/15/23 History celecoxib 200 mg capsule (Celebrex) 200 mg PO DAILY 12/22/23 Unknown History tamoxifen 20 mg tablet 20 mg PO DAILY #90 tabs 01/24/24 Unknown Rx famotidine 40 mg tablet 40 mg PO QHS 03/23/24 Unknown History rivaroxaban 10 mg tablet (Xarelto) 10 mg PO QDAY 28 days #28 tabs 03/24/24 Unknown Rx apixaban 2.5 mg tablet (Eliquis) 2.5 mg PO BID post op 03/28/24 Unknown Rx anticoagulant #60 tabs Allergy/AdvReac Type Severity Reaction Status Date / Time Dressing: Non-Medicated Allergy Intermediate Rash Verified 03/24/24 11:02 Family History Mother Breast cancer Diabetes Grandmother Breast cancer Sister Breast cancer Father Cancer Prostate and metastatic bone Heart disease Surgical History History of partial mastectomy of both breasts History of lymph node dissection of left axilla History of foot surgery H/O: hysterectomy Total knee replacement status Social History Smoking Status: Never smoker alcohol intake: never substance use type: does not use additional social history: pt denies vaping, denies marijuana use, denies edibles, denies aspirin and ibuprofen use Vital Signs Vital Signs Vital Signs: 03/29/24 09:20 03/29/24 09:20 Temperature 97.6 F L Temperature Source Temporal Pulse Rate 63 Respiratory Rate 17 Respiratory Pattern Normal Blood Pressure 136/87 H Blood Pressure Mean 103 Blood Pressure Source Monitor Blood Pressure Position Semi-Fowlers Blood Pressure Location Right Arm Pulse Ox 100 Oxygen Delivery Method Room Air Weight Weight: 203 lb 11.314 oz Body Mass Index (BMI) 36.1 Physical Exam Narrative Left upper extremity swelling. Assessment & Plan Assessment/Plan (1) Lymphedema: PLAN: Plan INTERVAL H&P PLAN, DATE OF SURGERY: We will proceed with surgery today. I talked the patient extensively about the risks of surgery, including bleeding, infection, damage to surrounding structures, surgical site dehiscence and wound formation, need for wound care, need for repeat operations, failure to obtain the desired result (worsening of lymphedema), DVT/PE (she has her Eliquis 2.5 mg PO BID prescription that she's starting tomorrow night), and the risks of anesthesia including . All of their questions were answered, and they agreed to proceed with surgery.
[2024-03-29] MEDS: Cefazolin 2 GM in 0.9% Normal Saline (100mL Bag) 100 ML IV (11:35)
[2024-03-29] MEDS: Isosulfan Blue 1% 5 ML Vial (12:41)
[2024-03-29] MEDS: Bupiv/Epi 0.25% 30 ML Vial (12:41)
[2024-03-29] MEDS: Lidocaine 2% (20 ml mdv) 20 ML Vial (15:31)
--- NOTE | 2024-03-29 17:30 | PCM.POST.ANE ---
Anesthesia: Postop Eval I Current Vital Signs Temperature: 98.1 F Pulse Rate: 106 Blood Pressure: 148/61 Respiratory Rate: 16 Pulse Ox: 94 Oxygen Delivery Method: Room Air Assessment Airway patent: Yes Spontaneous unlabored respirations: Yes Mental status: Awake and Calm nausea: No Vomiting: No Anesthesia Complication: No Fluid Hydration Crystalloid volume administer (ml): 1,700 Total IV fluid infused: 1,700 Progress Note Anesthesia document: Postop Eval 1 completed: Yes
--- NOTE | 2024-03-29 17:31 | PCM.POSTANE2 ---
Anesthesia Postop Eval I Sum Postop Eval Completion status Anesthesia document: Postop Eval 1 completed: Yes Anesthesia Postop Eval I Summary Anesthesia Postop Eval I Summary: Anesthesia Postop Eval I: Assessment Summary Airway patent Yes 03/29/24 17:31 Spontaneous unlabored Yes 03/29/24 17:31 respirations Mental status Awake,Calm 03/29/24 17:31 nausea No 03/29/24 17:31 Vomiting No 03/29/24 17:31 Anesthesia Postop Eval I: Fluid Summary Crystalloid volume administer 1,700 03/29/24 17:31 (ml) Colloids volume administered ( ml) Blood Product volume administered (ml) Total IV fluid infused 1,700 03/29/24 17:31 Anesthesia Postop Eval I: Summary Notes Anesthesia Complication No 03/29/24 17:31 Anesthesia Complication Comment: Post-operative progress note Anesthesia: Postop Eval II Evaluation Mental status: Awake Pain Level: 0 nausea: No Vomiting: No
== END 2024-03-29 19:04 | disposition home or self-care (01) ==
LOC: SDC 08:49 → AC 08:50
PROVIDERS: PCP Nurse Practitioner Family; Referring Provider Surgery Plastic and Reconstructive Surgery; Visit Provider Surgery Plastic and Reconstructive Surgery
PROC: (CPT 38999; principal; 2024-03-29 10:05)
DX: I89.0 Lymphedema, not elsewhere classified (principal); C50.919 Malignant neoplasm of unspecified site of unspecified female breast; Z79.01 Long term (current) use of anticoagulants; Z90.710 Acquired absence of both cervix and uterus; Z80.3 Family history of malignant neoplasm of breast; Z90.13 Acquired absence of bilateral breasts and nipples; K21.9 Gastro-esophageal reflux disease without esophagitis
CPT/HCPCS: 35206; 38790; 12004; 01670; J7120; J2405; Q9968

== ENCOUNTER 2024-04-11 12:44 | Outpatient (CLI) | payer MEDICARE, OTHER, SELFPAY ==
--- NOTE | 2024-04-11 12:49 | BD_ITS ---
STUDY: DUAL ENERGY X-RAY ABSORPTIOMETRY / DXA REASON FOR EXAM: Female, 68 years old. SCREENING TECHNIQUE: Bone Mineral Density (BMD) measurements of lumbar spine and bilateral hips were obtained. COMPARISON: None. FINDINGS: Lumbar Spine (L1-L4): g/cm2 (1.028) / T-score (-0.2) / Z-score (2.0) Findings are suggestive of normal bone density with a low fracture risk. Left Femur Total: g/cm2 (0.896) / T-score (-0.4) / Z-score (1.2) Left Femoral Neck: g/cm2 (0.760) / T-score (-0.8) / Z-score (1.0) Right Femur Total: g/cm2 (0.965) / T-score (0.2) / Z-score (1.7) Right Femoral Neck: g/cm2 (0.772) / T-score (-0.7) / Z-score (1.1) BD/Dexa Bone Density Study IMPRESSION: The patient is considered normal as outlined below according to World Matthew Organization (WHO) criteria with a low fracture risk. Reference Information: The T-score is the number of standard deviations above or below the standard which is normal for young adults at their peak bone mineral density. The World Health Organization (WHO) interprets the T-scores as follows: Above -1 Normal bone density Between -1 and -2.5 Osteopenia Equal to / or below -2.5 Osteoporosis As a practical clinical guideline, osteopenia may be graded as follows: Mild -1 through -1.5 Moderate -1.6 through -2.0 Severe -2.1 through -2.4 The Z-score is the number of standard deviations above or below age-matched controls. A Z-score of less than -1.5 would be considered abnormal. References: 1. NIH Osteoporosis and Related Bone Diseases www osteo.org 2. International Society for Clinical Densitometry www iscd.org 3. National Osteoporosis Foundation www nof.org Electronically Signed: Flakito Hernández MD at 9:54 EDT ,
== END 2024-04-11 23:59 | disposition home or self-care (01) ==
LOC: OPBD 12:45
PROVIDERS: PCP Nurse Practitioner Family; Referring Provider Internal Medicine Medical Oncology; Visit Provider Internal Medicine Medical Oncology
DX: Z13.820 Encounter for screening for osteoporosis (principal); C50.919 Malignant neoplasm of unspecified site of unspecified female breast
CPT/HCPCS: 77080

== ENCOUNTER → 2024-04-25 | Outpatient (CLI) | payer MEDICARE, OTHER, SELFPAY | END | disposition home or self-care (01) | LOC: OPBI 12:44 | PROVIDERS: PCP Nurse Practitioner Family; Referring Provider Internal Medicine Medical Oncology; Visit Provider Internal Medicine Medical Oncology | DX: Z12.31 Encounter for screening mammogram for malignant neoplasm of breast (principal) ==

== ENCOUNTER → 2024-05-11 | Outpatient (CLI) | payer MEDICARE, OTHER, SELFPAY | END | disposition home or self-care (01) | LOC: LABSPEC 15:30 | PROVIDERS: PCP Nurse Practitioner Family; Referring Provider Nurse Practitioner Family; Visit Provider Nurse Practitioner Family | DX: T81.89XA Other complications of procedures, not elsewhere classified, initial encounter (principal) | CPT/HCPCS: 87070; 87075; 87077; 87186; 87205 ==

== ENCOUNTER 2024-07-04 11:00 | Outpatient (RCR) | payer MEDICARE, OTHER, SELFPAY ==
--- NOTE | 2024-02-23 13:38 | HP.OTEVAL ---
Patient's Visit Information Visit Information Visit Information: RICHY WALLACE is a 68 year old F, referred to Occupational Therapy by Dr. Blu Kraus MD, with a diagnosis of right UE lymphedema. Date of Evaluation: 02/23/24 Occupational Therapist: Myesha Johnson, BRADEN/Precious, CHT Subjective Subjective: This 68 year old female was seen for OT eval with dx of left UE lymphedema - was seen in 2023 for initial OT eval with dx of lymphedema and ROM assessment: bilateral breast partial mastectomy on 07/22/2023. pt just finished her radiation in December and continues to have soreness under her arm-feeling of heavy and firm. states she is trying to still perform her UB ROM exercise and self manual lymphedema massage. pt states she just feels tired. Pain left UE: Current Pain Intensity: 2 Pain Intensity Range: 3 Lymphedema (Circumferential Measure) MCP: right 18cm left 18.5cm Wrist: right 15cm left 15.5cm Lower forearm: right 17cm left 20cm Largest forearm: right 23cm left 25cm Elbow: right 24cm left 26cm Largest humerus: right 32cm left 34cm Axcillary: right 34cm left 35cm Quick DASH-Disab of Arm,Shoulder& Hand Quick DASH Score: 56.6650 Goals Goal: Patient will demonstrate a 20% reduction in edema by discharge: Yes Goal: Patient will demonstrate adequate knowledge of self-bandaging by the end of the first week.: Yes Goal: Patient will demonstrate adequate knowledge of skin care and precautions by the end of the first week.: Yes Goal: Patient will demonstrate adequate knowledge of therapeutic exercises by discharge.: Yes Goal: Patient will select an appropriate compression garment and demonstrate adequate knowledge of correct donning technique, care and wearing schedule by discharge.: Yes Goal: Patient will voice understanding of need to replace compression garment every four to six months by discharge.: Yes Rehabilitation General Assessment: pt demo with stage I lymphedema and would benefit from further skilled OT services 2x week for 4 weeks to ed. pt in life long mtg, of her lymphedema. Today we discussed POC and pt agrees to use short stretch wraps until limb reduces in size and get fitted for compression sleeve. Today therapist ed.in use and care. Pt demo understanding and agrees to POC. Therapist will get order for compression sleeve and glove 20-30 mmHg and fax to [facility] per pts request. Pt will continue wrapping until she gets her compression sleeve. pt may benefit from use of compression pump as conservative methods have not supported her circulation. Rehabilitation Potential: Good Anticipated Interventions Anticipated Interventions: Education re assistive Equipment, Education re Diagnosis, Manual Lymph Drainage, Education re Life-long lymphedema Management, Education re Self-Bandaging Techniques, Education re Skin Care and Precautions, Education re Self Massage Techniques, Education re Correct Donning Tech,Care&Wearing Sched Comp Garments, Caregiver Training and Home Program Other Interventions: pt may benefit from compression pump Visit Plan Frequency: 1-2x /Week Duration: 4 Weeks TEXT: Thank you for the opportunity to evaluate your patient. For Medicare and Medicare HMO plans, please review the plan of care and approve it. It will need to be FAXED BACK to us at [phone] for Medicare purposes. Please let me know if there are questions or concerns regarding this plan of care. Physician Signature: Date:
--- NOTE | 2024-05-31 11:15 | HP.OTREVAL ---
Re-Evaluation Intro: Dr. Blu Kraus MD, It has been my pleasure to treat RICHY WALLACE over the last 14 visits for right UE lymphedema. Please see the progress note below for an update on the occupational therapy plan of care! Subjective Subjective: pt arrives states she is doing better- still struggling with swelling below elbow- pt feels she struggles with mtg her swelling. Objective Objective/Function: wound is healing - looks great left MCP 19cm left wrist 15cm left Lower forearm 20 left upper 26cm elbow 26cm hum 30cm axillary 34cm pt continues to struggle with mtg .of let UE lymphedema with elevation, lymph stimulation exercise and self manual lymph massage. Due to continued symptoms of swelling and feelings of fullness of left UE. pt would benefit from use of a home lymphedema pump to assist with her lymphedema mtg. It agrees to this POC. Plan Plan Duration: 4 Weeks Plan: compression sleeve get pt compression pump for home mtg of life long lymphedema Goals Goals Goal: Patient will demonstrate a 20% reduction in edema by discharge: Yes Goal: Patient will demonstrate adequate knowledge of self-bandaging by the end of the first week.: Yes Goal: Patient will demonstrate adequate knowledge of skin care and precautions by the end of the first week.: Yes Goal: Patient will demonstrate adequate knowledge of therapeutic exercises by discharge.: Yes Goal: Patient will select an appropriate compression garment and demonstrate adequate knowledge of correct donning technique, care and wearing schedule by discharge.: Yes Goal: Patient will voice understanding of need to replace compression garment every four to six months by discharge.: Yes Patient Goals: Learn how to Manage Lymphedema and Learn how to Apply Compression Stockings Anticipated Interventions Anticipated Interventions Anticipated Interventions: Education re assistive Equipment, Education re Diagnosis, Manual Lymph Drainage, Education re Life-long lymphedema Management, Education re Self-Bandaging Techniques, Education re Skin Care and Precautions, Education re Self Massage Techniques, Education re Correct Donning Tech,Care&Wearing Sched Comp Garments, Caregiver Training and Home Program Other Interventions: pt may benefit from compression pump Re-Evaluation Ending Re-evaluation ending: Please do not hesitate to contact me at [phone] by phone or if you have questions or concerns regarding this new plan of care! Sincerely, Myesha Johnson, SUZYR/L, CHT
--- NOTE | 2024-06-20 11:21 | HP.OTREVAL ---
Re-Evaluation Intro: Dr. Blu Kraus MD, It has been my pleasure to treat RICHY WALLACE over the last 16 visits for right UE lymphedema. Please see the progress note below for an update on the occupational therapy plan of care! Subjective Subjective: pt arrives to OT after 12 weeks of conservative therapy- pt has compression glove and sleeve but still gets swelling with all activity. pt frustrated as she is using compression sleeve 20-30 mmHg and glove- but not able to consistently decrease swelling. Objective Objective/Function: wound is healed left MCP 19cm left wrist 15cm left Lower forearm 20 left upper 26cm elbow 26cm hum 30cm axillary 34cm pt continues to have swelling despite 12 weeks of conservative therapy- elevation, manual lymph massage- compression garment. Plan Plan Frequency: 1-2x /Week Duration: 4 Weeks Plan: compression sleeve get pt compression pump for home mtg of life long lymphedema flexitouch with chest/trunk addition due to risk of trunk swelling Goals Goals Goal: Patient will demonstrate a 20% reduction in edema by discharge: Yes Goal: Patient will demonstrate adequate knowledge of self-bandaging by the end of the first week.: Yes Goal: Patient will demonstrate adequate knowledge of skin care and precautions by the end of the first week.: Yes Goal: Patient will demonstrate adequate knowledge of therapeutic exercises by discharge.: Yes Goal: Patient will select an appropriate compression garment and demonstrate adequate knowledge of correct donning technique, care and wearing schedule by discharge.: Yes Goal: Patient will voice understanding of need to replace compression garment every four to six months by discharge.: Yes Patient Goals: Learn how to Manage Lymphedema and Learn how to Apply Compression Stockings Anticipated Interventions Anticipated Interventions Anticipated Interventions: Education re assistive Equipment, Education re Diagnosis, Manual Lymph Drainage, Education re Life-long lymphedema Management, Education re Self-Bandaging Techniques, Education re Skin Care and Precautions, Education re Self Massage Techniques, Education re Correct Donning Tech,Care&Wearing Sched Comp Garments, Caregiver Training and Home Program Other Interventions: pt may benefit from compression pump Re-Evaluation Ending Re-evaluation ending: Please do not hesitate to contact me at [phone] by phone or if you have questions or concerns regarding this new plan of care! Sincerely, Myesha Johnson, SUZYR/L, CHT
--- NOTE | 2024-06-20 11:30 | HP.OTREVAL ---
Re-Evaluation Intro: Dr. Blu Kraus MD, It has been my pleasure to treat RICHY WALLACE over the last 16 visits for right UE lymphedema. Please see the progress note below for an update on the occupational therapy plan of care! Subjective Subjective: pt arrives to OT after 12 weeks of OT conservative therapy: dx of lymphedema ( I89.0) due to dx of breast cancer following lumpectomy with radiation. - pt has compression glove and sleeve but still gets swelling with all activity. pt frustrated as she is using compression sleeve 20-30 mmHg and glove- but not able to consistently decrease swelling. Objective Objective/Function: wound is healed left MCP 19cm left wrist 15cm left Lower forearm 20 left upper 26cm elbow 26cm hum 30cm axillary 34cm Despite 4 weeks of limb compression, exercise and elevation symptoms of heaviness and welling persist. pt continues to have swelling despite 12 weeks of conservative therapy- elevation, manual lymph massage- compression garment. pt would benefit from home flexitouch unit with chest/trunk added do to continuation of breast swelling. . Plan Plan Plan: compression sleeve - compression wrap- exercise get pt compression pump for home mtg of life long lymphedema flexitouch with chest/trunk addition due to risk of trunk swelling Goals Goals Goal: Patient will demonstrate a 20% reduction in edema by discharge: Yes Goal: Patient will demonstrate adequate knowledge of self-bandaging by the end of the first week.: Yes Goal: Patient will demonstrate adequate knowledge of skin care and precautions by the end of the first week.: Yes Goal: Patient will demonstrate adequate knowledge of therapeutic exercises by discharge.: Yes Goal: Patient will select an appropriate compression garment and demonstrate adequate knowledge of correct donning technique, care and wearing schedule by discharge.: Yes Goal: Patient will voice understanding of need to replace compression garment every four to six months by discharge.: Yes Patient Goals: Learn how to Manage Lymphedema and Learn how to Apply Compression Stockings Anticipated Interventions Anticipated Interventions Anticipated Interventions: Education re assistive Equipment, Education re Diagnosis, Manual Lymph Drainage, Education re Life-long lymphedema Management, Education re Self-Bandaging Techniques, Education re Skin Care and Precautions, Education re Self Massage Techniques, Education re Correct Donning Tech,Care&Wearing Sched Comp Garments, Caregiver Training and Home Program Other Interventions: pt may benefit from compression pump Re-Evaluation Ending Re-evaluation ending: Please do not hesitate to contact me at [phone] by phone or if you have questions or concerns regarding this new plan of care! Sincerely, Myesha Johnson, OTR/L, CHT
--- NOTE | 2024-07-04 13:55 | HP.OTREVAL ---
Re-Evaluation Intro: Dr. Blu Kraus MD, It has been my pleasure to treat RICHY WALLACE over the last 1 visits for right UE lymphedema. Please see the progress note below for an update on the occupational therapy plan of care! Subjective Subjective: pt arrives to OT after 14 weeks of 2 days OT conservative therapy: dx of left UE lymphedema ( I89.0) due to dx of breast cancer following lumpectomy with radiation. - pt has compression glove and sleeve but still gets swelling with all activity. Objective Objective/Function: wound on left forearm has closed skin is taunt unable to pinch skin on dorsum of hand at this time left MCP 19cm left wrist 15cm left Lower forearm 20 left upper 26cm left elbow 26cm left humerus 30cm left axillary 34cm Despite 4 weeks of limb compression, exercise and elevation symptoms of heaviness and welling persist. pt continues to have swelling despite 14 weeks of conservative therapy- elevation, manual lymph massage- compression garment. pt would benefit from home flexitouch unit with chest/trunk added do to concerns of breast swelling- pt to also get compression bra to assist with recent onset of breast swelling. Plan Plan Frequency: 1-2x /Week Duration: 4 Weeks Plan: compression sleeve - compression wrap- exercise get pt compression pump for home mtg of life long lymphedema flexitouch with chest/trunk addition due to risk of trunk/breast swelling Goals Goals Goal: Patient will demonstrate a 20% reduction in edema by discharge: Yes Goal: Patient will demonstrate adequate knowledge of self-bandaging by the end of the first week.: Yes Goal: Patient will demonstrate adequate knowledge of skin care and precautions by the end of the first week.: Yes Goal: Patient will demonstrate adequate knowledge of therapeutic exercises by discharge.: Yes Goal: Patient will select an appropriate compression garment and demonstrate adequate knowledge of correct donning technique, care and wearing schedule by discharge.: Yes Goal: Patient will voice understanding of need to replace compression garment every four to six months by discharge.: Yes Patient Goals: Learn how to Manage Lymphedema and Learn how to Apply Compression Stockings Anticipated Interventions Anticipated Interventions Anticipated Interventions: Education re assistive Equipment, Education re Diagnosis, Manual Lymph Drainage, Education re Life-long lymphedema Management, Education re Self-Bandaging Techniques, Education re Skin Care and Precautions, Education re Self Massage Techniques, Education re Correct Donning Tech,Care&Wearing Sched Comp Garments, Caregiver Training and Home Program Other Interventions: pt may benefit from compression pump Re-Evaluation Ending Re-evaluation ending: Please do not hesitate to contact me at [phone] by phone or if you have questions or concerns regarding this new plan of care! Sincerely, Myesha Johnson, OTR/L, CHT
== END 2024-07-04 19:00 | disposition home or self-care (01) ==
LOC: OT 11:00
PROVIDERS: PCP Nurse Practitioner Family; Referring Provider Surgery; Visit Provider Surgery
DX: I89.0 Lymphedema, not elsewhere classified (principal); D05.11 Intraductal carcinoma in situ of right breast
CPT/HCPCS: 97035; 97110; 97140; 97166; 97530

== ENCOUNTER → 2024-07-24 | Outpatient (CLI) | payer MEDICARE, OTHER, SELFPAY ==
--- NOTE | 2024-07-24 16:17 | RAD_ITS ---
STUDY: X-RAY CHEST REASON FOR EXAM: Female, 68 years old. Shortness of breath, cough and wheezing. TECHNIQUE: Frontal and lateral views of the chest. COMPARISON: November 04, 2023 FINDINGS: The lungs are clear and expanded. There is no demonstrated pleural abnormality. Normal size heart. Normal mediastinum and christina. Normal visualized pulmonary arteries. Normal visualized aortic arch and descending thoracic aorta. Stable diffuse thoracic spondylosis. Normal visualized ribs, clavicles, and shoulders. There is no demonstrated abnormality of the visualized soft tissue structures of the upper abdomen. RAD/Chest PA and Lateral IMPRESSION: No active or acute cardiopulmonary disease. Electronically Signed: Judah Carrillo MD at 9:52 EST ,
[2024-07-24 17:24] LABS: Absolute Lymphocyte Count 0.49 X10^3/uL (0.83-4.51); Absolute Neutrophil Count 2.9 X10^3/uL (2.0-7.7); Basophil# 0.01 X10^3/uL; Basophil% 0.3 % (0-1); Hematocrit 43.5 % (37-47); Hemoglobin 14.1 g/dL (12.0-15.0); Lymphocyte # 0.49 X10^3/ul (0.83-4.51); Lymphocyte % 13.4 % (19-41); Mean Corp Hgb Conc 32.4 g/dL (32-36); Mean Corpuscular Hgb 29.5 pg (27.0-32.0); Mean Platelet Vol. 8.7 fl (6.2-12.0); Monocyte# 0.26 X10^3/uL; Monocyte% 7.1 % (0-10); NRBC Flagged by Analyzer 0 % (0-5); Neutrophil % 78.9 % (47-70); POSITIVE DIFFERENTIAL YES; Platelet Count 218 K/mm3 (150-450); RBC Distribution Width CV 12.8 % (11.6-14.6); RBC Distribution Width SD 42.9 fl (35.1-43.9); Red Blood Count 4.78 M/mm3 (4.2-5.4); White Blood Count 3.7 K/mm3 (4.4-11.0)
[2024-07-24 18:16] LABS: ALB/GLOB Ratio 1.1 RATIO (0.9-2.4); AST(SGOT) 50 U/L (15-37); Alanine Aminotransfer ALT/SGPT 72 U/L (13-56); Albumin, Serum 3.9 g/dL (3.2-5.0); Alkaline Phosphatase 82 U/L (45-117); Anion Gap 9 (5-15); BUN 28 mg/dL (7-18); Calcium,Total 9.3 mg/dL (8.5-10.1); Chloride 104 mmol/L (98-107); EST Glomerular Filtration Rate 39 mL/min (>60); Est Glom Filt Rate - Afr Amer 48 mL/min (>60); Globulin 3.5 g/dL (2.2-4.2); Glucose 203 mg/dL (74-106); Potassium 3.8 mmol/L (3.5-5.1); Protein, Total 7.4 g/dL (6.4-8.2); Sodium Level 140 mmol/L (136-145)
== END | disposition home or self-care (01) ==
LOC: RAD 16:12
PROVIDERS: PCP Student in an Organized Health Care Education/Training Program; Referring Provider Nurse Practitioner Family; Visit Provider Nurse Practitioner Family
DX: J15.7 Pneumonia due to Mycoplasma pneumoniae (principal); C50.912 Malignant neoplasm of unspecified site of left female breast; R05.8 Other specified cough; R06.02 Shortness of breath; R06.2 Wheezing; D63.8 Anemia in other chronic diseases classified elsewhere
CPT/HCPCS: 36415; 71046; 80053; 85025

== ENCOUNTER → 2024-07-27 | Outpatient (CLI) | payer MEDICARE, OTHER, SELFPAY ==
--- NOTE | 2024-07-27 09:27 | BI_ITS ---
PROCEDURE: DIAG MAMM W/CAD, BILAT REASON FOR EXAM: History of bilateral breast cancer. Prior bilateral lumpectomies with chemotherapy and radiation. Sister with breast cancer. Grandmother with breast cancer. Aunt with breast cancer. TECHNIQUE: Bilateral diagnostic digital breast tomosynthesis with 2D and 3D images. Computer aided detection. COMPARISON: Prior exam(s) dating back to comparison is made with prior study dated April 22, 2023.. FINDINGS: The breasts are heterogeneously dense which may obscure small masses. The patient is status post bilateral lumpectomies. Focal architectural distortion is seen in the central portion of the right breast in keeping with postoperative scarring. A tissue clip marker is seen in the deep lateral aspect of the left breast. Stable examination. BI/DIAG MAMM W/CAD, BILAT IMPRESSION: BI-RADS 2: BENIGN. RECOMMEND ANNUAL MAMMOGRAPHIC SCREENING. Follow-up code: Routine Follow-up Reading Location: [place] [id number]
== END | disposition home or self-care (01) ==
LOC: OPBI 09:25
PROVIDERS: PCP Student in an Organized Health Care Education/Training Program; Referring Provider Student in an Organized Health Care Education/Training Program; Visit Provider Student in an Organized Health Care Education/Training Program
DX: Z12.31 Encounter for screening mammogram for malignant neoplasm of breast (principal); Z85.3 Personal history of malignant neoplasm of breast; Z80.3 Family history of malignant neoplasm of breast
CPT/HCPCS: 77062; 77066; G0279

== ENCOUNTER → 2024-09-28 | Outpatient (CLI) | payer MEDICARE, OTHER, SELFPAY ==
[2024-09-28 12:34] LABS: Cholesterol 160 mg/dL (<=200); High Density Lipoprotein 47 mg/dL; Low Density Lipoprotein Calc. 90 mg/dL; Triglycerides 115 mg/dL; Very Low Density Lipoprotein 23 mg/dL (5-40); Vitamin D,25 Hydroxy 42.4 ng/mL (30-100); cholesterol:hdl ratio screen 3.43
== END | disposition home or self-care (01) ==
PROVIDERS: PCP Nurse Practitioner Family; Referring Provider Nurse Practitioner Family; Visit Provider Nurse Practitioner Family
DX: E78.00 Pure hypercholesterolemia, unspecified (principal); E55.9 Vitamin D deficiency, unspecified
CPT/HCPCS: 36415; 80061; 82306

== ENCOUNTER → 2024-10-05 | Outpatient (CLI) | payer MEDICARE, OTHER, SELFPAY ==
--- NOTE | 2024-10-05 12:56 | US_ITS ---
PROCEDURE: KIDNEY AND BLADDER 10/05/2024 REASON FOR EXAM: Stage 3 chronic kidney disease TECHNIQUE: Ultrasound evaluation of the kidneys and urinary bladder. COMPARISON: Abdominal/pelvic CT 08/17/2023 FINDINGS: The right kidney is 11.1 cm in length. The left kidney is 10.4 cm in length. The cortical-medullary differentiation is maintained. No solid-appearing renal mass or obstructive uropathy. No echogenic intrarenal calculus. The urinary bladder is not well distended on this examination, limiting evaluation. Both ureteral jets are demonstrated. US/Kidney and Bladder IMPRESSION: Unremarkable renal ultrasound. No obstructive uropathy. Limited evaluation of the urinary bladder. Both ureteral jets are demonstrated . Reading Location: [place]
== END | disposition home or self-care (01) ==
LOC: US 12:55
PROVIDERS: PCP Nurse Practitioner Family; Referring Provider Nurse Practitioner Family; Visit Provider Nurse Practitioner Family
DX: N18.30 Chronic kidney disease, stage 3 unspecified (principal)
CPT/HCPCS: 76770

== ENCOUNTER → 2024-12-21 | Outpatient (CLI) | payer MEDICARE, OTHER, SELFPAY ==
[2024-12-21 11:59] LABS: Hematocrit 39.9 % (37-47); Hemoglobin 13.3 g/dL (12.0-15.0); Mean Corp Hgb Conc 33.3 g/dL (32-36); Mean Corpuscular Hgb 30.2 pg (27.0-32.0); Mean Corpuscular Volume 90.5 fL (81-99); Mean Platelet Vol. 9.2 fl (6.2-12.0); Platelet Count 197 K/mm3 (150-450); RBC Distribution Width CV 12.6 % (11.6-14.6); RBC Distribution Width SD 41.4 fl (35.1-43.9); Red Blood Count 4.41 M/mm3 (4.2-5.4); White Blood Count 4.7 K/mm3 (4.4-11.0)
[2024-12-21 13:06] LABS: ALB/GLOB Ratio 1.7 RATIO (0.9-2.4); AST(SGOT) 24 U/L (<=31); Alanine Aminotransfer ALT/SGPT 22 U/L (<=34); Alkaline Phosphatase 73 U/L (35-104); Anion Gap 12 (5-15); BUN 15 mg/dL (4-19); BUN/Creat Ratio 14.7 RATIO (10-20); Calcium,Total 8.8 mg/dL (7.6-11.0); Carbon Dioxide 21.9 mmol/L (21.0-32.0); Chloride 104 mmol/L (98-108); Creatinine, Serum 1.01 mg/dL (0.70-1.20); EST Glomerular Filtration Rate 60 (>60); Globulin 2.4 g/dL (2.2-4.2); Glucose 129 mg/dL (70-99); Potassium 4.2 mmol/L (3.3-5.1); Protein, Total 6.3 g/dL (5.9-8.4); Sodium Level 138 mmol/L (133-145); Total Bilirubin 0.23 mg/dL (0.00-1.30)
[2024-12-21 13:08] LABS: Hemoglobin A1c 5.9 % (<=5.6)
[2024-12-21 13:24] LABS: PTHIN 62 pg/mL (11-61)
== END | disposition home or self-care (01) ==
LOC: LAB 11:43
PROVIDERS: PCP Nurse Practitioner Family; Referring Provider Nurse Practitioner Family; Visit Provider Nurse Practitioner Family
DX: E11.22 Type 2 diabetes mellitus with diabetic chronic kidney disease (principal); N18.30 Chronic kidney disease, stage 3 unspecified
CPT/HCPCS: 36415; 80053; 83036; 83970; 85027

== ENCOUNTER → 2025-01-04 | Outpatient (CLI) | payer MEDICARE, OTHER, SELFPAY ==
--- NOTE | 2025-01-04 13:48 | VDUE_ITS ---
Reason For Study Reason For Study: Left arm pain Right Proximal Left Proximal Right subclavian vein is spontaneous, widely patent, Left jugular vein is spontaneous, widely patent, phasic, with no intraluminal echogenicity noted. phasic, with no intraluminal echogenicity noted. Left subclavian vein is spontaneous, widely patent, phasic, with no intraluminal echogenicity noted. Left Arm Left axillary vein is spontaneous, patent, phasic, competent, compressible and demonstrates augmentation. Left brachial vein is compressible. Left cephalic vein is compressible. Left basilic vein is compressible. Left Lower Arm Left radial vein is compressible. Left ulnar vein is compressible. Procedure This was a unilateral left upper extremity venous doppler examination. A preliminary report was called and/or faxed to Dr. Rod's Office. VL/Venous Duplex US, Unilateral Interpretation Summary Deep veins of the left upper extremity are patent and compressible segmentally. There is no evidence of deep vein thrombosis. Superficial veins of the left upper extremity are patent and compressible segme ntally. There is no evidence of superficial vein thrombosis. Ordering Physician: Celso Rod Referring Physician: Surinder Azul Performed By: Lara Cuenca RVT ???
== END | disposition home or self-care (01) ==
LOC: CVS 13:48
PROVIDERS: PCP Nurse Practitioner Family; Referring Provider Surgery Plastic and Reconstructive Surgery; Visit Provider Surgery Plastic and Reconstructive Surgery
DX: M79.602 Pain in left arm (principal); I70.92 Chronic total occlusion of artery of the extremities
CPT/HCPCS: 93971

== ENCOUNTER 2025-02-22 15:30 | Outpatient (RCR) | payer MEDICARE, OTHER, SELFPAY ==
--- NOTE | 2025-01-10 17:00 | HP.OTEVAL_ITS ---
Patient's Visit Information Visit Information Visit Information: RICHY WALLACE is a 69 year old F, referred to Occupational Therapy by Dr. Celso Rod MD, with a diagnosis of left shoulder pain. Date of Evaluation: 01/08/25 Occupational Therapist: BRADEN Loomis/Precious, CHT Subjective Subjective: This 69 year old female was seen for OT eval with dx of left shoulder pain. Pt states left shoulder pain has been bothering her for awhile. pt states she started a nerve pill today. (gabapentin) pt states she has trouble with using her compression sleeve for the entire day as it starts to hurt at her biceps. Pt states she has trouble reaching behind her to grab something off the floor from a chair, fasten her bra, or wash her back. pt states she can not lift a 5 gallon bucket of water. pt states she tries to carry a watering can (2gallon) so about 16# of water weight. pt state arm hurts whenever she move the wrong way or if she has over did it pt is not sure what is going on but would like to have a decrease in her pain . pt does watch her grandchildren /garden and does a lot of leta. pt very active- pt states she has not done any of her UE exercise from her lymphedema treatments. but is using her sleeve when she can tolerate. Pain left shoulder: Current Pain Intensity: 0 Pain Intensity Range: 5 and 6 ROM Shoulder: flexion right 130 left 115 extension 65 left 50 ROM Comments: pt reports pain with her left shoulder ROM pt demo with forward neck and rolled shoulder posture Strength Shoulder: flexion right 13# left 7#ext right 17# left 15# Elbow: biceps R17# L14# triceps R17 L14# Clinical Pharmacy Specialist: right 55# left 35# Lateral Pinch: right 6# left 4# Tripod Pinch: right 4# left 4# Strength Comments: pt demo with a decrease in right UE strength Lymphedema (Circumferential Measure) MCP: right 19cm left 19.5cm Wrist: right 15cm Left 15.5cm Lower forearm: rigth 17cm left 22cm Largest forearm: right 24.5cm left 28cm Elbow: right 25cm left 26cm Largest humerus: right 31.5cm left 32cm Axcillary: right 34cm left 34.5cm Upper Exremity Comments: pt tender to touch at posterior deltoid and triceps region Sensation Sensation Comments: reports burning pain to touch along triceps region Goals Goal:: pt will demo a increase in left tower equipment installer strength by 10# to increase pts IND with ALDs by taylor. Goal:: pt will demo a increase in left shoulder flexion by 30* to increase pts ind. with ADLs by nereidac pt will demo a increase in left shoulder IR to reach mid back for bathing/dressing by nereidac Goal:: pt will demo a increase in postural strength maintaining good ambulation and seated posture. Rehabilitation General Assessment: pt demo with poor rolled shoulder posture, limited left shoulder ROM and weakness that limits pts IND with ADLs. pt would benefit from skilled OT services 1-2x week for 4-6 weeks to improve pts postural strength, shoulder ROM and radial nerve glides- to decrease pts pain and improve pts functional IND with ADLs. Pt demo understanding and agree to POC. Rehabilitation Potential: Good Anticipated Interventions Anticipated Interventions: A/AAROM/PROM, Strengthening and Home Program Visit Plan Frequency: 1-2x /Week Duration: 4 Weeks TEXT: Thank you for the opportunity to evaluate your patient. For Medicare and Medicare HMO plans, please review the plan of care and approve it. It will need to be FAXED BACK to us at [phone] for Medicare purposes. Please let me know if there are questions or concerns regarding this plan of care. Physician Signature: Date:
--- NOTE | 2025-02-22 16:49 | HP.OTDCSUM ---
Discharge Summary D/C Summary: It has been my pleasure to treat RICHY WALLACE under orders from Dr. Celso Rod MD, for the diagnosis of left shoulder pain for a total of 9 visit(s). Please see the following information for a summary of their discharge status. Overall Improvement % Improvement: 5 Objective Objective/Function: L shoulder flexion 110 degrees does demonstrate improvement in shoulder extension able to reach to lower back at this time elbow ROM WFL bank secrecy act officer on L and R 40# Goals Patient Goals: Regain Mobility, Decrease Pain, Use Hand/Wrist/Arm Normally Again and Be More Independent in ADLS Goal:: pt will demo a increase in left bank secrecy act officer strength by 10# to increase pts IND with ALDs by d.c. 40# gained 5# not met Goal:: pt will demo a increase in left shoulder flexion by 30* to increase pts ind. with ADLs by d.c now 110 not met pt will demo a increase in left shoulder IR to reach mid back for bathing/dressing by d.c able to reach mid back goal met Goal:: pt will demo a increase in postural strength maintaining good ambulation and seated posture. ed provided painful though so movement difficult Plan Plan: AROM/AAROM/PROM postural exercises D/C Information Discharge Comments: pt is discharge at this time as maximal potential achieved currently as pt is limited by pain in L shoulder impacting performance in tasks. pt plan is to go to pain management as well as to see Dr Rod for further options next month. pt is in agreeance with discharge from OT at this time d/c sentence: If there are questions or concerns regarding this patient's occupational therapy, please fell free to call me at [phone]. Thank you for the referral of this patient. Sincerely, Kylie Polanco
--- NOTE | 2025-02-22 16:51 | HP.OT.NRP ---
Patient Information Patient Information: RICHY WALLACE was seen in my office for initial evaluation on 01/08/25. The following Plan of Care was established for this patient: POC Established Initial Frequency: 1-2x /Week Initial Duration: 4 Weeks Plan: AROM/AAROM/PROM postural exercises Anticipated Interventions Anticipated Interventions: A/AAROM/PROM, Strengthening and Home Program Last Seen Last Seen: This patient was last seen in our office 02/22/25. Pertinent comments regarding their Occupational therapy will appear below: This 69 year old female seen by OT for L shoulder pain and decreased ROM. Pt continues to have fluctuating pain despite exercises manual treatment and stretching. plan is for pt to see pain management as well as return to Dr pacheco next month. pt in agreeance of discharge from OT at this time At this point I will be discontinuing this patient from occupational therapy. I would be happy to see this patient again in the future if found appropriate by the physician. Thank you! Kylie Polanco
== END 2025-02-22 19:00 | disposition home or self-care (01) ==
LOC: OT 15:30
PROVIDERS: PCP Nurse Practitioner Family; Visit Provider Surgery Plastic and Reconstructive Surgery
DX: M25.512 Pain in left shoulder (principal); R52 Pain, unspecified
CPT/HCPCS: 97110; 97140; 97166; 97167; 97530

== ENCOUNTER → 2025-03-23 | Outpatient (CLI) | payer MEDICARE, OTHER, SELFPAY ==
--- OUTSIDE RECORDS SUMMARY | 2025-03-23 12:41 | XMS RPT_ITS | CCD ---
Author Organization [facility] Care Team Providers Care Speech And Drama Teacher Name Role Phone Lina Stewart L Unavailable Be Esquivel DO Primary Care Provider Keysha tenisha Stack MD, MD, Daesung Unavailable LATHA AUTOMOBILE INSPECTOR - CHIQUIS VIEIRA Primary Care Phys ician Latha CRUSHER FOREMAN, CRUSHER FOREMAN-C Chiquis Loomis Primary Care Pr ovider Latha CRUSHER FOREMAN, CRUSHER FOREMAN-C Chiquis Loomis Referring Provi taylor Dr. Blu Kraus Attending Provider Latha CRUSHER FOREMAN, CRUSHER FOREMAN-C Chiquis Loomis Primary Care Pr ovider Latha CRUSHER FOREMAN, CRUSHER FOREMAN-C Chiquis Loomis Referring Provi taylor Dr. Blu Kraus Attending Provider [phone] Lina Stewart Unavailable Sreekanth VILLALOBOS MD, Daesung Unavailable Chiquis Azul CNP Primary Care Provider [phone] JULES MINER Attending Unavailable JULES MINER Referring Unavailable CHIQUIS AZUL Primary Care Unavailable THANIA LENZ Referring Unavailable BE ESQUIVEL Primary Care Unavailable JULES MINER Referring Unavailable CHIQUIS AZUL Primary Care Unavailable JULES MINER Referring Unavailable CHIQUIS AZUL Primary Care Unavailable Latha CRUSHER FOREMAN, CRUSHER FOREMAN-C Chiquis Loomis Primary Care Pr ovider Latha CRUSHER FOREMAN, CRUSHER FOREMAN-C Chiquis Loomis Referring Provi taylor Dr. Blu Kraus Attending Provider [phone] Dr. Blu Kraus Referring Provider Dr. Blu Kraus Other Provider Dr. Romain Griffin Attending Provider Dr. Juliano Gibbs Attending Provider Dr. Juliano Gibbs Referring Provider Dr. Adolph Sands Attending Provider Terry VILLALOBOS, Lina Lang Unavailable Sreekanth VILLALOBOS, Charissa Unavailable Latha MULESER, Chiquis Martinez Primary Care Provider [phone] LATHA AUTOMOBILE INSPECTOR - MULESER, CHIQUIS Martinez [facility] AZUL AUTOMOBILE INSPECTOR - MULESER, CHIQUIS Martinez Primary Care [facility], Dr. Dunlap Attending Provider Bruno CRUSHER FOREMAN-C, Dee Paredes Attending Provider Latha CRUSHER FOREMAN-C, Chiquis Loomis Primary Care Provi atylor Nayana VILLALOBOS, Dr. Hurt Attending Provider [phone] Dr. Blu Kraus MD Referring Provider [phone] Dr. Germán Gonzalez DO Primary Care Provider Latha CRUSHER FOREMAN-C, Chiquis Loomis Attending Provider Latha CRUSHER FOREMAN-C, Chiquis Loomis Referring Provider Dr. Germán Gonzalez DO Referring Provider Dr. Celso Rod MD Attending Provider Dr. Romain Griffin MD Attending Provider Dr. Romain Griffin MD Referring Provider Salma CRUSHER FOREMAN-C, Lois Other Provider Latha CRUSHER FOREMAN-C, Chiquis Loomis Primary Care Provi taylor Latha CRUSHER FOREMAN-C, Chiquis Loomis Attending Provider Latha CRUSHER FOREMAN-C, Chiquis Loomis Referring Provider Carlos OLMEDO, Dr. Dunlap Attending Provider Carlos OLMEDO, Dr. Dunlap Referring Provider Viola VILLALOBOS, Dr. Houston Attending Provider Viola VILLALOBOS, Dr. [place] Referring Provider Vincent VILLALOBOS, Dr. Ferro Attending Provider Tattnall CRUSHER FOREMAN-C, Chiquis Loomis Primary Care Provi taylor Latha CRUSHER FOREMAN-C, Chiquis Loomis Attending Provider Tattnall CRUSHER FOREMAN-C, Chiquis Loomis Referring Provider Carlos OLMEDO, Dr. Dunlap Attending Provider Latha CRUSHER FOREMAN-C, Chiquis Loomis Primary Care Provi taylor Viola VILLALOBOS, Dr. [place] Attending Provider Celso Rod Referring Unavailable Pillo Kaur Attending Unavailable Tattnall CRUSHER FOREMAN, Chiquis Loomis Primary Care Unav ailable Bruno CRUSHER FOREMAN, Dee Paredes Attending Unavailabl e Germán Gonzalez Attending Unavailable PrahRomain Referring Unavailable Prah, Romain Attending Unavailable Tattnall CRUSHER FOREMAN, Chiquis Loomis Primary Care Unav ailable SiskaCelso Attending Unavailable Tattnall CRUSHER FOREMAN, Chiquis Loomis Referring Unav ailable Latha CRUSHER FOREMAN, Chiquis Loomis Primary Care Unav ailable Celso Rod Attending Unavailable Latha CRUSHER FOREMAN, Chiquis Loomis Referring Unav ailable Tattnall CRUSHER FOREMAN, Chiquis Loomis Primary Care Unav ailable Germán Gonzalez Attending Unavailable Latha CRUSHER FOREMAN, Chiquis Loomis Primary Care Unav ailable Germán Gonzalez Referring Unavailable Siska, Celso Attending Unavailable Latha CRUSHER FOREMAN, Chiquis Loomis Primary Care Unav ailable Blu Kraus Attending Unavailable Latha CRUSHER FOREMAN, Chiquis Loomis Referring Unav ailable Tattnall CRUSHER FOREMAN, Chiquis Loomis Primary Care Unav ailable PrahRomain Referring Unavailable Prah, Romain Attending Unavailable Latha CRUSHER FOREMAN, Chiquis Loomis Primary Care Unav ailable Germán Gonzalez Attending Unavailable Germán Gonzalez Referring Unavailable CarlosGermán hodge Primary Care Unavailable Tattnall CRUSHER FOREMAN, Chiquis Loomis Referring Unav ailable Tattnall CRUSHER FOREMAN, Chiquis Vladislav Primary Care Unav ailable Tattnall CRUSHER FOREMAN, Chiquis Loomis Attending Unav ailable Siska, Celso Attending Unavailable Siska, Celso Referring Unavailable Latha CRUSHER FOREMAN, Chiquis Loomis Primary Care Unav ailable Latha CRUSHER FOREMAN, Chiquis Loomis Referring Unav ailable Bruno CRUSHER FOREMAN, Dee Paredes Attending Unavailabl e Latha CRUSHER FOREMAN, Chiquis Loomis Referring Unav ailable Bruno CRUSHER FOREMAN, Dee Paredes Attending Unavailabl e Tattnall CRUSHER FOREMAN, Chiquis Loomis Primary Care Unav ailable Tattnall CRUSHER FOREMAN, Chiquis Loomis Referring Unav ailable Bruno CRUSHER FOREMAN, Dee Paredes Attending Unavailabl e Latha CRUSHER FOREMAN, Chiquis Loomis Primary Care Unav ailable Latha CRUSHER FOREMAN, Chiquis Loomis Referring Unav ailable PrahRomain Attending Unavailable Tattnall CRUSHER FOREMAN, Chiquis Loomis Primary Care Unav ailable Tattnall CRUSHER FOREMAN, Chiquis Loomis Referring Unav ailable Bruno CRUSHER FOREMAN, Dee Paredes Attending Unavailabl e Tattnall CRUSHER FOREMAN, Chiquis Loomis Primary Care Unav ailGermán Koroma Attending Unavailable Latha CRUSHER FOREMAN, Chiquis Loomis Primary Care Unav ailable Celso Rod Attending Unavailable Tattnall CRUSHER FOREMAN, Chiquis Loomis Primary Care Unav ailable Salma CRUSHER FOREMAN, Lois Consulting Unavailable PrahRomain Referring Unavailable Prah, Romain Attending Unavailable Tattnall CRUSHER FOREMAN, Chiquis Loomis Primary Care Unav ailable Siska, Celso Attending Unavailable Tattnall CRUSHER FOREMAN, Chiquis Loomis Referring Unav ailable Latha CRUSHER FOREMAN, Chiquis Loomis Primary Care Unav ailable Latha CRUSHER FOREMAN, Chiquis Loomis Referring Unav ailable Latha CRUSHER FOREMAN, Chiquis Loomis Primary Care Unav ailable Latha CRUSHER FOREMAN, Chiquis Loomis Attending Unav ailable Tattnall CRUSHER FOREMAN, Chiquis Loomis Referring Unav ailable Tattnall CRUSHER FOREMAN, Chiquis Loomis Primary Care Unav ailable Tattnall CRUSHER FOREMAN, Chiquis Loomis Attending Unav ailable Blu Kraus Attending Unavailable CalabrBlu kaufman Referring Unavailable Tattnall CRUSHER FOREMAN, Chiquis Loomis Primary Care Unav ailable Siska, Celso Referring Unavailable Siska, Celso Attending Unavailable Latha CRUSHER FOREMAN, Chiquis Loomis Primary Care Unav ailable Bruno CRUSHER FOREMAN, Dee Paredes Referring Unavailabl e Bruno CRUSHER FOREMAN, Dee Paredes Attending Unavailabl e Tattnall CRUSHER FOREMAN, Chiquis Loomis Primary Care Unav ailable Tattnall CRUSHER FOREMAN, Chiquis Loomis Referring Unav ailable Latha CRUSHER FOREMAN, Chiquis Loomis Primary Care Unav ailable Romain Griffin Attending Unavailable Carlos, Germán Primary Care Unavailable Latha CRUSHER FOREMAN, Chiquis Loomis Referring Unav ailable Latha CRUSHER FOREMAN, Chiquis Loomis Attending Unav ailable Germán Gonzalez Referring Unavailable Carlos, Germán Primary Care Unavailable Siska, Celso Attending Unavailable Tattnall CRUSHER FOREMAN, Chiquis Loomis Referring Unav ailable Bruno CRUSHER FOREMAN, Dee Paredes Attending Unavailabl e Latha CRUSHER FOREMAN, Chiquis Loomis Primary Care Unav ailable Latha CRUSHER FOREMAN, Chiquis Loomis Referring Unav ailable Bruno CRUSHER FOREMAN, Dee Paredes Attending Henriabl e Latha CRUSHER FOREMAN, Chiquis Loomis Primary Care Unav ailable Siska, Celso Referring Unavailable Siska, Celso Consulting Unavailable Siska, Celso Attending Unavailable Latha CRUSHER FOREMAN, Chiquis Loomis Primary [facility] Unav ailable Siska, Celso Attending Unavailable Tattnall CRUSHER FOREMAN, Chiquis Loomis Referring Unav ailable Latha CRUSHER FOREMAN, Chiquis Loomis Primary Care Unav ailable Allergies Allergy Classification Reported Allergen(s) Allergy Type Date of Onset Reaction(s) Facility (10 sources) Dressing: Non-Medicated; Translations: [Dressing: Non-Medicated] Allergy to substance 08-16-2023 [facility] Comment on above: BANDAIDS if l on francisco bonny than 24 -48 hours Medications Current Medications Medication Drug Class(es) Dates Sig (Normalized) Sig (Original) Tylenol (20 sources) Start: 09-24-2023 Tylenol Oral, 0 Refill(s) Start Date: 09/24/23 Status: Ordered Start: 07-24-2018 End: 03-23-2024 Acetaminophen (Tylenol) 325 MG tablet Discontinued 1000 mg PO Q8H as needed for Fever, headache, pain 0 July 24, 2018 1:00am March 23, 2024 10:05am BALANCE OF NATURE FRUITS (10 sources) Start: 07-14-2023 BALANCE OF ELE URE FRUITS Active 3 {tbl} PO DAILY July 14, 2023 1:00am Start: 07-14-2023 take 3 tablets by mouth once d aily BALANCE OF NATURE FRUITS Active 3 TABLET PO DAILY July 14, 2023 12:00am BALANCE OF NATURE VEGETABLES (10 sources) Start: 07-14-2023 BALANCE OF ELE URE VEGETABLES Active 3 {tbl} PO DAILY July 14, 2023 1:00am Start: 07-14-2023 take 3 tablets by mo uth once daily BALANCE OF NATURE VEGETABLES Active 3 TABLET PO DAILY July 14, 2023 12:00am Bee pollen oral capsule (1 source) Start: 01-26-2022 Bee pollen ora l capsule 0 Refill(s) Start Date: 01/26/22 Status: Ordered cholecalciferol 0.025 mg oral capsule (20 sources) Vitamin D Start: 05-17-2023 take 1 capsule by mouth once daily Cholecalciferol (Vitamin D3) 25 mcg (1,000 unit) capsule Active 25 ug PO DAILY May 17, 2023 1:00am Start: 12-22-2017 End: 04-18-2018 take 1 capsule by mouth once daily Cholecalciferol (Vitamin D3) 1,000 UNIT capsule Discontinued 1000 U PO DAILY December 22, 2017 12:00am April 18, 2018 1:06pm SUPPLEMENT ciprofloxacin 500 mg oral tablet (1 source) Quinolone Antimicrobial Start: 01-30-2022 End: 02-04-2022 Cipro 500 mg oral tablet Dose : 500 mg = 1 tab(s), Oral, q12h, X 5 day(s), # 10 tab(s), 0 Refill(s), 02/04/22 11:04:00 EDT, Pharmacy: [facility]/pharmacy #[id number], Abdominal pain, LLQ Acute low back pain, 158, cm, 01/30/22 10:42:00 EDT, Height, 90 Start Date: 01/30/22 Stop Date: 02/04/22 Status: Ordered Clobetasol (1 source) Corticosteroid Start: 08-05-2023 Clobetasol (Eqv-Temovate) 0.05% topical cream See Instructions, Apply to affected areas twice a day for 14 days, # 15 gram(s), 2 Refill(s), Pharmacy: [facility]/pharmacy #[id number], 159, cm, 08/05/23 10:39:00 EST, Height, kg, 08/05/23 10:39:00 EST, Dosing Weight Start Date: 08/05/23 Status: Ordered CoQ10 100 mg oral capsule (1 source) Start: 01-26-2022 take 1 mg by mouth once daily CoQ10 100 mg oral capsule mg = cap(s), Oral, qDay, 0 Refill(s) Start Date: 01/26/22 Status: Ordered DULoxetine 30 mg delayed release oral capsule (5 sources) Serotonin and Norepinephrine Reuptake Inhibitor Start: 01-05-2025 take 2 capsules by mouth once daily Duloxetine 30 mg capsule,delayed release(DR/EC) Active 60 mg PO daily January 05, 2025 12:00am ketoconazole 20 mg/ml topical cream (1 source) Azole Antifungal Start: 08-05-2023 ketoconazole 2% topical cream See Instructions, Apply to affected areas twice a day for 14 days, # 15 gram(s), 2 Refill(s), Pharmacy: [facility]/pharmacy #[id number], Cream, 159, cm, 08/05/23 10:39:00 EST, Height, 94, kg, 08/05/23 10:39:00 EST, Dosing Weight Start Date: 08/05/23 Status: Ordered MEDICATION, NON-DATABASE (3 sources) MEDICATION, NON-DATABASE Immuneti per pt, 1 tablet daily Active MEDICATION, NON- DATABASE Immuneti per pt, 1 tablet daily 0 Active Comment on above: Immuneti per pt, 1 t ablet daily meloxicam 15 mg oral tablet (1 source) Nonsteroidal Anti-inflammatory Drug Start: 01-30-2022 End: 02-09-2022 Mobic 15 mg oral tablet Dose : 15 mg = 1 tab(s), Oral, qDay, # 10 tab(s), 0 Refill(s), Pharmacy: [facility]/pharmacy #[id number], Acute low back pain, 158, cm, 01/30/22 10:42:00 EDT, Height Start Date: 01/30/22 Stop Date: 02/09/22 Status: Ordered Misc Medication (3 sources) Start: 01-26-2022 Misc Medication Tinnitus health, 0 Refill(s), 78.5 Start Date: 01/26/22 Status: Ordered Start: 01-26-2022 Misc Medicatio n Balance of Nature supplement, 0 Refill(s), 78.5 Start Date: 01/26/22 Status: Ordered Multi-Day Plus Minerals oral tablet (2 sources) Start: 01-26-2022 Multi-Day Plus Minerals oral tablet Oral, qDay, Immuinity vitamin, 0 Refill(s) Start Date: 01/26/22 Status: Ordered Start: 01-26-2022 Multi-Day Plus Minerals oral tablet Oral, qDay, 0 Refill(s) Start Date: 01/26/22 Status: Ordered Multivitamin preparation (6 sources) Start: 05-17-2023 take 1 tablet by mouth once daily Multivitamin Active 1 TABLET PO DAILY May 17, 2023 12:00am Multivitamin tablet (8 sources) Start: 05-17-2023 Multivitamin t ablet Active 1 {tbl} PO DAILY May 17, 2023 1:00am pantoprazole 40 mg delayed release oral tablet (20 sources) Proton Pump Inhibitor Start: 05-17-2023 take 1 tablet by mouth once daily Pantoprazole 40 mg tablet,delayed release (DR/EC) Active 40 mg PO DAILY May 17, 2023 1:00am Start: 01-26-2022 pantoprazole q Day, 0 Refill(s) Start Date: 01/26/22 Status: Ordered Start: 12-22-2017 End: 04-18-2018 take 1 tablet by mouth once daily Pantoprazole 40 MG tablet Discontinued 40 mg PO DAILY December 22, 2017 12:00am April 18, 2018 1:06pm ACID REFLUX take 40 mg by mouth once daily p antoprazole sodium (PANTOPRAZOLE ORAL) Take 40 mg by mouth once daily. Active Comment on above: Take 40 mg by mouth once daily. tamoxifen 20 mg oral tablet (15 sources) Estrogen Agonist/Antagonist Start: 01-24-2024 End: 12-26-2024 take 1 tablet by mouth once daily Tamoxifen 20 mg tablet Active 20 mg PO DAILY 90 3 December 26, 2024 9:50am Completed/Discontinued Medications Medication Drug Class(es) Dates Sig (Normalized) Sig (Original) acetaminophen 325 mg / HYDROcodone bitartrate 5 mg oral tablet (20 sources) Opioid Agonist Start: 07-21-2018 End: 07-24-2018 Hydrocodone-Acetam inophen ([place] 5-325 Tablet) 1 EACH tablet Discontinued 1 {tbl} PO EVERY 6 HOURS NEEDED as needed for Pain July 21, 2018 1:00am July 24, 2018 12:31pm apixaban 2.5 mg oral tablet (8 sources) Factor Xa Inhibitor Start: 03-28-2024 End: 05-11-2024 take 1 tablet by mouth twice daily Apixaban (Eliquis) 2.5 mg tablet Discontinued 2.5 mg PO TWICE A DAY 60 0 March 28, 2024 12:00am May 11, 2024 11:52am post op anticoagulant take one tablet twice daily aspirin 325 mg oral tablet (20 sources) Platelet Aggregation Inhibitor, Nonsteroidal Anti-inflammatory Drug Start: 01-05-2018 End: 04-18-2018 take 1 tablet by mouth twice daily at mealtime Aspirin 325 MG tablet Discontinued 325 mg PO TWICE DAILY WITH MEALS 60 0 January 05, 2018 12:00am April 18, 2018 1:06pm azithromycin 250 mg oral tablet (8 sources) Macrolide Antimicrobial Start: 11-04-2023 End: 11-09-2023 Azithromycin 250 mg tablet Discontinued 0 PO .COMPLEX November 04, 2023 12:00am November 09, 2023 1:02pm For 250 mg dose pack: take 500 mg today (day 1), then 250 mg for 4 days (days 2-5) PO celecoxib 200 mg oral capsule (9 sources) Nonsteroidal Anti-inflammatory Drug Start: 12-22-2023 End: 10-10-2024 take 1 capsule by mouth once daily Celecoxib (Celebrex) 200 mg capsule Discontinued 200 mg PO DAILY December 22, 2023 12:00am October 10, 2024 11:40am dexamethasone 4 mg oral tablet (8 sources) Corticosteroid Start: 08-18-2023 End: 11-09-2023 take 2 tablets by mouth once Dexamethasone 4 mg tablet Discontinued 8 mg PO .COMPLEX 12 August 18, 2023 1:00am November 09, 2023 1:03pm 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 breast Malignant neoplasm of unspecified site of unspecified female breast 8 mg orally; ONLY the day before, the day of and the day after chemotherapy docusate sodium 100 mg oral capsule (8 sources) Start: 09-09-2023 End: 03-23-2024 take 1 capsule by mouth once daily as needed Docusate Sodium (Stool Softener) 100 mg capsule Discontinued 100 mg PO DAILY as needed September 09, 2023 12:00am March 23, 2024 10:06am doxycycline hyclate 100 mg oral tablet (8 sources) Tetracycline-class Drug Start: 05-16-2024 End: 06-13-2024 take 1 tablet by mouth twice daily Doxycycline Hyclate 100 mg tablet Discontinued 100 mg PO TWICE A DAY 10 0 May 16, 2024 1:00am June 13, 2024 10:37am famotidine 40 mg oral tablet (20 sources) Histamine-2 Receptor Antagonist Start: 02-17-2024 End: 05-11-2024 take 1 tablet by mouth at bedtime Famotidine 40 mg tablet Discontinued 40 mg PO AT BEDTIME March 23, 2024 12:00am May 11, 2024 11:53am Start: 04-27-2022 End: 05-17-2023 take 1 tablet by mouth once daily Famotidine 20 mg tablet Discontinued 20 mg PO DAILY April 27, 2022 12:00am May 17, 2023 10:05am furosemide 20 mg oral tablet (20 sources) Loop Diuretic Start: 12-22-2017 End: 04-18-2018 take 1 tablet by mouth once daily Furosemide 20 MG tablet Discontinued 20 mg PO DAILY December 22, 2017 12:00am April 18, 2018 1:06pm SWELLING gabapentin 100 mg oral capsule (4 sources) Anti-epileptic Agent Start: 01-05-2025 End: 01-19-2025 take 1 capsule by mouth three times daily as needed for pain Gabapentin 100 mg capsule Discontinued 100 mg PO THREE TIMES A DAY as needed for nerve pain 20 14 0 January 05, 2025 12:00am January 18, 2025 12:00am January 19, 2025 12:08am 12 hr guaiFENesin 1200 mg extended release oral tablet (8 sources) Start: 11-04-2023 End: 03-23-2024 take 1 tablet by mouth twice daily Guaifenesin 1,200 mg tablet extended release 12hr Discontinued 1200 mg PO TWICE A DAY November 04, 2023 12:00am March 23, 2024 10:06am lidocaine 25 mg/ml / prilocaine 25 mg/ml topical cream (8 sources) Antiarrhythmic, Amide Local Anesthetic Start: 08-18-2023 End: 03-23-2024 Lidocaine-Prilocain e 2.5-2.5 % cream Discontinued 1 NMA TOPICAL ONCE as needed for port access 30 2 August 18, 2023 1:00am March 23, 2024 10:06am 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 breast Malignant neoplasm of unspecified site of unspecified female breast ZORA COLLADO GUMMY (7 sources) Start: 10-10-2024 End: 01-05-2025 ZORA COLLADO GUMMY Discontinued PO October 10, 2024 12:00am January 05, 2025 9:51am Start: 10-10-2024 ZORA SIDHUOOApolinar GUMMY Active PO October 10, 2024 12:00am metroNIDAZOLE 500 mg oral tablet (8 sources) Nitroimidazole Antimicrobial Start: 05-18-2024 End: 05-28-2024 take 1 tablet by mouth three times daily Metronidazole 500 mg tablet Discontinued 500 mg PO THREE TIMES A DAY 30 10 0 May 18, 2024 1:00am May 27, 2024 1:00am May 28, 2024 1:09am morphine sulfate 15 mg extended release oral tablet (20 sources) Opioid Agonist Start: 01-05-2018 End: 04-18-2018 take 1 tablet by mouth twice daily Morphine 15 MG tablet Discontinued 15 mg PO TWICE A DAY 14 7 0 January 05, 2018 12:00am April 18, 2018 1:06pm Acute postoperative pain of right knee Other acute postprocedural pain Multivitamin With Iron (Daily Multiple Vitamins/Iron) tablet (20 sources) Start: 04-27-2022 End: 05-17-2023 Multivitamin With Iron (Daily Multiple Vitamins/Iron) tablet Discontinued 1 {tbl} PO DAILY April 27, 2022 12:00am May 17, 2023 10:06am Start: 04-27-2022 End: 05-17-2023 take 1 tablet by mouth once daily Multivitamin With Iron (Daily Multiple Vitamins/Iron) tablet Discontinued 1 TABLET PO DAILY April 26, 2022 11:00pm May 17, 2023 9:06am Start: 04-27-2022 take 1 tablet by papo th once daily Multivitamin With Iron (Daily Multiple Vitamins/Iron) tablet Active 1 TABLET PO DAILY April 26, 2022 11:00pm Start: 04-27-2022 take 1 tablet by papo th once daily Multivitamin With Iron (Daily Multiple Vitamins/Iron) tablet Active 1 TABLET PO DAILY April 27, 2022 12:00am Pkboexesnbul-Md-Prfo-Mineral s (16 sources) Start: 03-12-2017 End: 04-18-2018 Rexlbumyhtkz-Lx-Fxxk-Mineral s Discontinued 1 EACH PO DAILY March 11, 2017 11:00pm April 18, 2018 12:06pm Start: 03-12-2017 End: 04-18-2018 Bvpicwwlupgb-Qh-Vlle-Mineral s Discontinued 1 EACH PO DAILY March 12, 2017 12:00am April 18, 2018 1:06pm Lrphwjqhsxin-Dl-Ekfn-Mineral s 1 EACH tablet (8 sources) Start: 03-12-2017 End: 04-18-2018 take 1 tablet by mouth once daily Scdpyuavepbn-Su-Jira-Minerals 1 EACH tablet Discontinued 1 NMA PO DAILY March 12, 2017 12:00am April 18, 2018 1:06pm SUPPLEMENT Start: 03-12-2017 End: 04-18-2018 take 1 tablet by mouth once daily Exugquwgnlkz-Bp-Nrsf-Minerals 1 EACH tab let Discontinued 1 NMA PO DAILY March 12, 2017 12:00am April 18, 2018 1:06pm nabumetone 500 mg oral tablet (14 sources) Nonsteroidal Anti-inflammatory Drug Start: 05-17-2023 End: 12-22-2023 take 1 tablet by mouth twice daily Nabumetone 500 mg tablet Discontinued 500 mg PO TWICE A DAY May 17, 2023 1:00am December 22, 2023 10:37am Start: 05-17-2023 take 500 mg by mouth once keyla y Nabumetone Active 500 MG PO DAILY May 17, 2023 12:00am Nystatin 100,000 unit/gram powder (8 sources) Start: 05-18-2024 End: 06-01-2024 Nystatin 100,000 unit/gram p owder Discontinued 1 NMA TOPICAL TWICE A DAY 60 14 0 May 18, 2024 1:00am May 31, 2024 1:00am June 01, 2024 1:09am Start: 05-18-2024 End: 06-01-2024 Nystatin 100,000 unit/gram p owder Discontinued 1 NMA TOPICAL TWICE A DAY 60 14 May 18, 2024 1:00am May 31, 2024 1:00am June 01, 2024 1:09am ondansetron 4 mg disintegrating oral tablet (20 sources) Serotonin-3 Receptor Antagonist Start: 03-29-2024 End: 05-11-2024 take 1 tablet by mouth every eight hours as needed for nausea and vomiting Ondansetron 4 mg tablet,disintegrating Discontinued 4 mg PO Q8H as needed for nausea and vomiting 10 March 29, 2024 12:00am May 11, 2024 11:53am Start: 08-18-2023 End: 03-23-2024 take 1 tablet by mouth every eight hours as needed for nausea and vomiting Ondansetron 8 mg tablet,disintegrating Discontinued 8 mg PO Q8H as needed for nausea and vomiting 30 August 18, 2023 1:00am March 23, 2024 10:06am 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 breast Malignant neoplasm of unspecified site of unspecified female breast oxyCODONE hydrochloride 5 mg oral tablet (20 sources) Opioid Agonist Start: 03-29-2024 End: 05-11-2024 take 1 tablet by mouth twice daily as needed for pain Oxycodone 5 mg tablet Discontinued 5 mg PO TWICE A DAY as needed for pain 10 5 March 29, 2024 May 11, 2024 11:52am Lymphedema Lymphedema, not elsewhere classified Start: 03-29-2024 End: 05-11-2024 take 1 tablet by mouth every twelve hours as needed for pain Oxycodone 5 mg tablet Discontinued 5 mg PO Q12H as needed for pain 10 5 0 March 29, 2024 May 11, 2024 11:52am Lymphedema Lymphedema, not elsewhere classified Start: 07-23-2023 take 5-10 mg by mout h every four hours as needed Oxycodone Active 5 - 10 MG PO EVERY 4 HOURS NEEDED 30 July 23, 2023 Start: 07-24-2018 End: 07-27-2018 take 1 tablet by mouth every six hours as needed for pain Oxycodone 5 MG tablet Discontinued 5 mg PO EVERY 6 HOURS as needed for Severe Pain (6-10/10) 12 3 0 July 24, 2018 1:00am July 26, 2018 1:00am July 27, 2018 1:07am 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, unspecified Start: 01-05-2018 End: 04-18-2018 take 5-10 mg by mouth every six hours as needed for pain Oxycodone 5 MG tablet Discontinued 5 - 10 mg PO EVERY 6 HOURS NEEDED as needed for Mod-Severe Pain (4-10/10) 80 7 0 January 05, 2018 10:02am April 18, 2018 1:06pm Acute postoperative pain of right knee Other acute postprocedural pain monobasic potassium phosphate 0.0408 meq/ml oral solution (16 sources) Start: 08-19-2023 End: 03-23-2024 Potassium Phosphate, Monobasic 500 mg tablet,soluble Discontinued 1000 mg PO DAILY 14 0 October 14, 2023 11:12am March 23, 2024 10:06am prochlorperazine 10 mg oral tablet (8 sources) Phenothiazine Start: 08-18-2023 End: 03-23-2024 take 1 tablet by mouth every six hours as needed for nausea and vomiting Prochlorperazine Maleate 10 mg tablet Discontinued 10 mg PO EVERY 6 HOURS as needed for nausea and vomiting 30 2 August 18, 2023 1:00am March 23, 2024 10:06am Chemotherapy-induced nausea and vomiting Nausea with vomiting, unspecified Adverse effect of antineoplastic and immunosuppressive drugs, initial encounter promethazine hydrochloride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 substance use type: does not use additional social history: pt denies vaping, denies marijuana use, denies edibles, denies aspirin and ibuprofen use Diagnosis: Cynthia Wallace is a 69 year-old female diagnosed with pathologic stage IIIA (pT1c pN2a M0) grade 2 invasive ductal carcinoma (ER 0%, SC 0%, HER2 0+ IHC) of the left breast and pathologic stage 0 (pTis pN0 (sn) M0) grade 1 DCIS (ER > 95%, SC > 95%, HER2 0+ IHC) of the right breast status post bilateral screening mammography (04/22/2023), left breast ultrasound (04/26/2023), left breast stereotactic core biopsy (05/05/2023), bilateral breast MRI (06/07/2023), right breast ultrasound (06/18/2023), right breast core biopsy (06/29/2023), bilateral partial mastectomy with bilateral axillary sentinel lymph node and left axillary dissection (07/22/2023), CT chest/abdomen/pelvis with contrast (07/30/2023), completion of adjuvant chemotherapy (From 08/19/2023 ??? 10/21/2023). From 11/29/2023 ??? 12/28/2023 she completed adjuvant radiation to the left breast and regional lymph nodes as well as adjuvant APBI to the right breast.??? History of Present Illness: 05/04/2022: Patient completed ultrasound-guided biopsy of the left breast.??? This demonstrated mild duct ectasia, no evidence of malignancy. 04/22/2023: Bilateral screening mammography was performed.??? This demonstrated increase in size of a nodular density seen in the deep slightly lateral aspect of the left breast measuring about (more content not included)... Normal [facility] OT General Evaluationon 12-26 OT General Evaluation [facility] Occupational Therapy [facility] [place] [id number] / REHABILITATION SERVICES INITIAL EVALUATION MR#: [id number] Acct: [id number] Name: CYNTHIA WALLACE Rep #: [id number] : 1955 69 From: Myesha FELICIANO/SOFI Lang Referring Dr.: Dr. Celso Rod MD Status: REG R Insurance: MEDICARE PART A B Eval Date: [facility] Patient's Visit Information Visit Information Visit Information: CYNTHIA WALLACE is a 69 year old F, referred to Occupational Therapy by Dr. Celso Rod MD, with a diagnosis of left shoulder pain. Date of Evaluation: 01/08/25 Occupational Therapist: BRADEN Loomis/SOFI Lang Subjective Subjective: This 69 year old female was seen for OT eval with dx of left shoulder pain. Pt states left shoulder pain has been bothering her for awhile. pt states she started a nerve pill today. (gabapentin) pt states she has trouble with using her compression sleeve for the entire day as it starts to hurt at her biceps. Pt states she has trouble reaching behind her to grab something off the floor from a chair, fasten her bra, or wash her back. pt states she can not lift a 5 gallon bucket of water. pt states she tries to carry a watering can (2gallon) so about 16# of water weight. pt state arm hurts whenever she move the wrong way or if she has over did it pt is not sure what is going on but would like to have a decrease in her pain . pt does watch her grandchildren /garden and does a lot of leta. pt very active- pt states she has not done any of her UE exercise from her lymphedema treatments. but is using her sleeve when she can tolerate. Pain left shoulder: Current Pain Intensity: 0 Pain Intensity Range: 5 and 6 ROM Shoulder: flexion right 130 left 115 extension 65 left 50 ROM Comments: pt reports pain with her left shoulder ROM pt demo with forward neck and rolled shoulder posture Strength Shoulder: flexion right 13# left 7#ext right 17# left 15# Elbow: biceps R17# L14# triceps R17 L14# Front Man: right 55# left 35# Lateral Pinch: right 6# left 4# Tripod Pinch: right 4# left 4# Strength Comments: pt demo with a decrease in right UE strength Lymphedema (Circumferential Measure) MCP: right 19cm left 19.5cm Wrist: right 15cm Left 15.5cm Lower forearm: rigth 17cm left 22cm Largest forearm: right 24.5cm left 28cm Elbow: right 25cm left 26cm Largest humerus: right 31.5cm left 32cm Axcillary: right 34cm left 34.5cm Upper Exremity Comments: pt tender to touch at posterior deltoid and triceps region Sensation Sensation Comments: reports burning pain to touch along triceps region Goals Goal:: pt will demo a increase in left bench loom weaver strength by 10# to increase pts IND with ALDs by d.c. Goal:: pt will demo a increase in left shoulder flexion by 30* to increase pts ind. with ADLs by d.c pt will demo a increase in left shoulder IR to reach mid back for bathing/dressing by d.c Goal:: pt will demo a increase in postural strength maintaining good ambulation and seated posture. Rehabilitation General Assessment: pt demo with poor rolled shoulder posture, limited left shoulder ROM and weakness that limits pts IND with ADLs. pt would benefit from skilled OT services 1-2x week for 4-6 weeks to improve pts postural strength, shoulder ROM and radial nerve glides- to decrease pts pain and improve pts functional IND with ADLs. Pt demo understanding and agree to POC. Rehabilitation Potential: Good Anticipated Interventions Anticipated Interventions: A/AAROM/PROM, Strengthening and Home Program Visit Plan Frequency: 1-2x /Week Duration: 4 Weeks TEXT: Thank you for the opportunity to evaluate your patient. For Medicare and Medicare HMO plans, please review the plan of care and approve it. It will need to be FAXED BACK to us at [phone] for Medicare purposes. Please let me know if there are questions or concerns regarding this plan of care. Physician Signature: Date : 01/10/25 1700 CC: LUCILA Azul; Dr. Celso Rod MD MK Signed For Medicare only, by signing this I certify the plan of care. Physicians Signature Date Normal [facility] Plastic Surgery Visit Report on 01-05-2025 Plastic Surgery Visit Report [facility] Re[facility]ive [facility] [address] [facility] [place], [place] [address] OFFICE VISIT Date of Service: 01/05/25 MR#: [id number] Acct: [id number] Name: CYNTHIA WALLACE Rep #: [id number] : 1955 Provider: Dr. Celso Rod MD Age/Sex: 69/F [place] [facility] [place] Status: Signed Intake Vital Signs 10/12/24 12:58 01/05/25 09:54 Height 5 ft 3 in 5 ft 3 in BP 145/82 H Blood Pressure Location Rt brachial Position Sitting Respiration 16 Pulse 66 Pulse Source Monitor Pulse Oximetry (%) 94 Oxygen Delivery Method room air Intake Visit Reasons: US results [employer] Required: No Accompanied by: Self Is patient in pain?: Yes (left arm) Pain scale (1-10): 3 Allergies Dressing: Non-Medicated Allergy (Intermediate, Verified 01/05/25 09:50) Rash Medications ???Medication ???Instructions ???Recorded ???Confirmed ???Type cholecalciferol (vitamin D3) 25 25 mcg PO DAILY 05/17/23 01/05/25 History mcg (1,000 unit) capsule multivitamin 1 tab PO DAILY 05/17/23 01/05/25 H istory pantoprazole 40 mg tablet,delayed 40 mg PO DAILY 05/17/23 01/05/25 History release BALANCE OF NATURE FRUITS 3 tab PO DAILY 07/14/23 01/05/25 H istory BALANCE OF NATURE VEGETABLES 3 tab PO DAILY 07/14/23 01/05/25 H istory tamoxifen 20 mg tablet 20 mg PO DAILY #90 tabs 12/26/24 0 01/05/25 Rx duloxetine 30 mg capsule,delayed 60 mg PO QDAY 01/05/25 01/05/25 Hi story release gabapentin 100 mg capsule 100 mg PO TID PRN nerve pain 14 0 01/05/25 01/05/25 Rx days #20 caps Have you fallen in the past year?: No Nurse's Note: Continued left arm achiness, exacerbated with certain movement or lifting, and occasional sharp pain. Decreased ROM. Occasional left arm edema, attributes to warm weather. 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 Encounter for education Post-menopausal History of edema Abnormal MRI, breast Wears glasses Cancer Arthritis History of hiatal hernia Gastric reflux Non-smoker History of echocardiogram Triple negative breast cancer Abnormal mammogram of left breast Left breast mass Hemorrhoids Abdominal pain Surgical History History of partial mastectomy of both breasts History of lymph node dissection of left axilla History of foot surgery H/O: hysterectomy Total knee replacement status Family History Mother Breast cancer Diabetes Grandmother Breast cancer Sister Breast cancer Father Cancer Prostate and metastatic bone Heart disease Social History Smoking Status: Never smoker alcohol intake: never substance use type: does not use additional social history: pt denies vaping, denies marijuana use, denies edibles, denies aspirin and ibuprofen use HPI US results Details: HPI Cynthia Wallace is a 68-year-old female with past medical history of anal cancer in 2018 (in remission) who was found to have an abnormal mammogram in March 2023 that demonstrated a left breast mass that was biopsied and was positive for invasive ductal carcinoma, triple negative. Upon further evaluation with an MRI, a right breast mass was also found. She underwent bilateral breast conserving therapy (partial mastectomies/lumpecto mies) in June 2023, which demonstrated a right breast ductal carcinoma in situ. The right axillary contents were sampled with a sentinel node and were negative; however, the left axillary contents were clinically positive during the surgery, and 4 out of 11 lymph nodes from the left axillary dissection were positive for cancer. She underwent radiation of both breasts and axilla, and completed chemotherapy (port was removed). Approximately 6 months following the surgery (1.5 months ago), she started developing intermittent swelling and feelings of heaviness in the left upper extremity (side of the full lymph node dissection) that got worse throughout the course of the day. She followed up with her breast surgeon Dr. Kraus who referred her to lymphedema clinic. She went to the occupational therapist/lymphedema specialist at the lymphedema clinic last week and was fitted for compression garments for total decongestive therapy and begin working with their team. The lymphedema specialist, Guillermina Johnson, took measurements at her visit last week demonstrating an increased size of the left forearm and wrist compared to the right (see measurements below). Today she reports that the feelings of heaviness and swelling are worse throughout the day as she uses her arm and hand, and she noticed that she cannot se (more content not included)... Normal [facility] Venous Duplex US, Unilateral on 01-04-2025 Venous Duplex US, Unilateral [facility] [address] [place] [id number] Venous Duplex US, Unilateral 01/04/25 1358 MR#: [id number] Acct: [id number] Name: CYNTHIA WALLACE Rep #: [id number] : 1955 69 From: Pillo Kaur MD Attending Dr: Dr. Celso Rod MD Status: REG CLI Ordering Dr: Celso Rod MD Date: 01/04/25 Location: [facility] Sex: F C Admitted: Reason For Study Reason For Study: Left arm pain Right Proximal Left Proximal Right subclavian vein is spontaneous, widely patent, Left jugular vein is spontaneous, widely patent, phasic, with no intraluminal echogenicity noted. phasic, with no intraluminal echogenicity noted. Left subclavian vein is spontaneous, widely patent, phasic, with no intraluminal echogenicity noted. Left Arm Left axillary vein is spontaneous, patent, phasic, competent, compressible and demonstrates augmentation. Left brachial vein is compressible. Left cephalic vein is compressible. Left basilic vein is compressible. Left Lower Arm Left radial vein is compressible. Left ulnar vein is compressible. Procedure This was a unilateral left upper extremity venous doppler examination. A preliminary report was called and/or faxed to Dr. Rod's Office. VL/Venous Duplex US, Unilateral Interpretation Summary Deep veins of the left upper extremity are patent and compressible segmentally. There is no evidence of deep vein thrombosis. Superficial veins of the left upper extremity are patent and compressible segmentally. There is no evidence of superficial vein thrombosis. Ordering Physician: Celso Rod Referring Physician: Chiquis Azul Performed By: Lara Cuenca RVT ??? 01/04/25 1612 Date Pillo Kaur MD CC: CRUSHER FOREMAN-C Chiquis Azul; Dr. Celso Rod MD Date Dictated: 01/04/25 1358 Date Transcribed: 01/04/25 1612 Cardiac Tech: Signed Normal [facility] Venous duplex ultrasound rep ortOrdered By: Pillo Kaur on 01-04-2025 US Vein [facility] [address] [place] [address] Venous Duplex US, Unilateral 01/04/25 1358 MR#: [id number] Acct: [id number] Name: CYNTHIA WALLACE Rep #:[id number] : 1955 69 From: Pillo Martinez Attending Dr: Dr. Cleso Rod MD Status: REG CLI Ordering Dr: Celso Rod MD Date: Location: [facility] Sex: F C Admitted: Reason For Study Reason For Study: Left arm pain Right Proximal Left Proximal Right subclavian vein is spontaneous, widely patent, Left jugular vein is spontaneous, widely patent, phasic, with no intraluminal echogenicity noted. phasic, with no intraluminal echogenicity noted. Left subclavian vein is spontaneous, widely patent, phasic, with no intraluminal echogenicity noted. Left Arm Left axillary vein is spontaneous, patent, phasic, competent, compressible and demonstrates augmentation. Left brachial vein is compressible. Left cephalic vein is compressible. Left basilic vein is compressible. Left Lower Arm Left radial vein is compressible. Left ulnar vein is compressible. Procedure This was a unilateral left upper extremity venous doppler examination. A preliminary report was called and/or faxed to Dr. Rod's Office. VL/Venous Duplex US, Unilateral Interpretation Summary Deep veins of the left upper extremity are patent and compressible segmentally. There is no evidence of deep vein thrombosis. Superficial veins of the left upper extremity are patent and compressible segmentally. There is no evidence of superficial vein thrombosis. Ordering Physician: Celso Rod Referring Physician: Chiquis Azul Performed By: Lara Cuenca RVT ??? 01/04/25 1612 Date _ Pillo Kaur MD CC: CRUSHER FOREMAN-C Chiquis Azul; Dr. Celso Rod MD ~ Date Dictated: 01/04/25 1358 Date Transcribed: 01/04/251611 Cardiac Tech: Signed [facility] Work Phone: Anion gap in Serum or Plasma Ordered By: Chiquis Azul on 12-21-2024 Anion gap [Moles/Vol] 12 mmol/L 5-15 [facility] BUN/creatinine ratioOrdered By: Chiquis Azul on 12-21-2024 Urea nitrogen/Creatinine [Mass ratio] 14.7 mg/mg 10-20 [facility] Bilirubin, totalOrdered By: Chiquis Azul on 12-21-2024 Bilirubin [Mass/Vol] 0.23 mg/dL 0.00-1.30 [facility] CBC-Complete Blood Cnt No Di ffon 12-21-2024 Erythrocyte distribution width (RBC) [Ratio] 12.6 % Normal 11.6-14.6 [facility] Comment on above: Performed By: #### L 500.4050, L100.0500, L509.1000, L501.9985 #### [facility] [address] [place], [place], [id number] Hematocrit (Bld) [Volume fraction] 39.9 % Normal 37-47 [facility] Comment on above: Performed By: #### L 500.4050, L100.0500, L509.1000, L501.9985 #### [facility] [address] [place], [address] Hemoglobin (Bld) [Mass/Vol] 13.3 g/dL Normal 12.0-15.0 [facility] Comment on above: Performed By: #### L 500.4050, L100.0500, L509.1000, L501.9985 #### [facility] [address] [place], [address] MCH (RBC) [Entitic mass] 30.2 pg Normal 27.0-32.0 [facility] Comment on above: Performed By: #### L 500.4050, L100.0500, L509.1000, L501.9985 #### [facility] [address] [place], [address] MCHC (RBC) [Mass/Vol] 33.3 g/dL Normal 32-36 [facility] Comment on above: Performed By: #### L 500.4050, L100.0500, L509.1000, L501.9985 #### [facility] [address] [place], [address] MCV (RBC) [Entitic vol] 90.5 fL Normal 81-99 [facility] Comment on above: Performed By: #### L 500.4050, L100.0500, L509.1000, L501.9985 #### [facility] [address] [place], [address] Platelet mean volume (Bld) [Entitic vol] 9.2 fL Normal 6.2-12.0 [facility] Comment on above: Performed By: #### L 500.4050, L100.0500, L509.1000, L501.9985 #### [facility] [address] [place], [address] Platelets (Bld) [#/Vol] 197 10*3/uL Normal 150-450 [facility] Comment on above: Performed By: #### L 500.4050, L100.0500, L509.1000, L501.9985 #### [facility] [address] [place], [address] RBC (Bld) [#/Vol] 4.41 10*6/uL Normal 4.2-5.4 [facility] Comment on above: Performed By: #### L 500.4050, L100.0500, L509.1000, L501.9985 #### [facility] [address] [place], [address] RDW SD 41.4 fl Normal 35.1-43.9 [facility] Comment on above: Performed By: #### L 500.4050, L100.0500, L509.1000, L501.9985 #### [facility] [address] [place], [address] WBC (Bld) [#/Vol] 4.7 10*3/uL Normal 4.4-11.0 [facility] Comment on above: Performed By: #### L 500.4050, L100.0500, L509.1000, L501.9985 #### [facility] [address] [place], [address] Carbon dioxide, total [Moles /volume] in Central venous bloodOrdered By: Chiquis Azul on 12-21-2024 CO2 [Moles/Vol] 21.9 mmol/L 21.0-32.0 [facility] Chloride assayOrdered By: Chris Azul on 12-21-2024 Chloride [Moles/Vol] 104 mmol/L 98-108 [facility] Comprehensive Metabolic Prof ilon 12-21-2024 Albumin [Mass/Vol] 4.0 g/dL Normal 3.4-4.8 [facility] Comment on above: Performed By: #### L 500.4050, L100.0500, L509.1000, L501.9985 #### [facility] [address] [place], [address] Albumin/Globulin [Mass ratio] 1.7 {ratio} Normal 0.9-2.4 [facility] Comment on above: Performed By: #### L 500.4050, L100.0500, L509.1000, L501.9985 #### [facility] [address] [place], [address] ALK PHOS 73 U/L Normal 35-104 [facility] Comment on above: Performed By: #### L 500.4050, L100.0500, L509.1000, L501.9985 #### [facility] [address] [place], [address] ALT [Catalytic activity/Vol] 22 U/L Normal <=34 [facility] Comment on above: Performed By: #### L 500.4050, L100.0500, L509.1000, L501.9985 #### [facility] [address] [place], [address] AST [Catalytic activity/Vol] 24 U/L Normal <=31 [facility] Comment on above: Performed By: #### L 500.4050, L100.0500, L509.1000, L501.9985 #### [facility] [address] [place], [address] Bilirubin [Mass/Vol] 0.23 mg/dL Normal 0.00-1.30 [facility] Comment on above: Performed By: #### L 500.4050, L100.0500, L509.1000, L501.9985 #### [facility] [address] [place], [address] BUN/CRE 14.7 RATIO Normal 10-20 [facility] Comment on above: Performed By: #### L 500.4050, L100.0500, L509.1000, L501.9985 #### [facility] [address] [place], [address] Calcium [Mass/Vol] 8.8 mg/dL Normal 7.6-11.0 [facility] Comment on above: Performed By: #### L 500.4050, L100.0500, L509.1000, L501.9985 #### [facility] [address] [place], [address] Chloride [Moles/Vol] 104 mmol/L Normal 98-108 [facility] Comment on above: Performed By: #### L 500.4050, L100.0500, L509.1000, L501.9985 #### [facility] [address] [place], [address] CO2 [Moles/Vol] 21.9 mmol/L Normal 21.0-32.0 [facility] Comment on above: Performed By: #### L 500.4050, L100.0500, L509.1000, L501.9985 #### [facility] [address] [place], [address] Creatinine [Mass/Vol] 1.01 mg/dL Normal 0.70-1.20 [facility] Comment on above: Performed By: #### L 500.4050, L100.0500, L509.1000, L501.9985 #### [facility] [address] [place], [address] GAP 12 Normal 5-15 [facility] Comment on above: Performed By: #### L 500.4050, L100.0500, L509.1000, L501.9985 #### [facility] [address] [place], [address] GFR/1.73 sq M.predicted among non-blacks MDRD (S/P/Bld) [Vol rate/Area] 60 mL/min/{1.73_m2} Normal >60 [facility] Comment on above: Result Comment: mL/m in/1.73m2 CKD-EPI Creatinine Equation (2020) Performed By: #### L 500.4050, L100.0500, L509.1000, L501.9985 #### [facility] [address] [place], [address] Globulin (S) [Mass/Vol] 2.4 g/dL Normal 2.2-4.2 [facility] Comment on above: Performed By: #### L 500.4050, L100.0500, L509.1000, L501.9985 #### [facility] [address] [place], [address] Glucose [Mass/Vol] 129 mg/dL High 70-99 [facility] Comment on above: Performed By: #### L 500.4050, L100.0500, L509.1000, L501.9985 #### [facility] [address] [place], [address] Potassium [Moles/Vol] 4.2 mmol/L Normal 3.3-5.1 [facility] Comment on above: Performed By: #### L 500.4050, L100.0500, L509.1000, L501.9985 #### [facility] [address] [place], [address] Sodium [Moles/Vol] 138 mmol/L Normal 133-145 [facility] Comment on above: Performed By: #### L 500.4050, L100.0500, L509.1000, L501.9985 #### [facility] [address] [place], [address] T PROT 6.3 g/dL Normal 5.9-8.4 [facility] Comment on above: Performed By: #### L 500.4050, L100.0500, L509.1000, L501.9985 #### [facility] [address] [place], [address] Urea nitrogen [Mass/Vol] 15 mg/dL Normal 4-19 [facility] Comment on above: Performed By: #### L 500.4050, L100.0500, L509.1000, L501.9985 #### [facility] [address] [place], [address] Erythrocyte distribution wid th ratioOrdered By: Chiquis Azul on 12-21-2024 Erythrocyte distribution width (RBC) [Ratio] 12.6 % 11.6-14.6 [facility] Erythrocyte distribution wid th standard deviationOrdered By: Chiquis Azul on 12-21-2024 Erythrocyte distribution width (RBC) [Ratio] 41.4 fl 35.1-43.9 [facility] Glomerular filtration rate ( GFR) estimation/1.73 sq m using serum, plasma, or whole bOrdered By: Chiquis Azul on 12-21-2024 GFR/1.73 sq M.predicted among non-blacks MDRD (S/P/Bld) [Vol rate/Area] 60 mL/min/{1.73_m2} >60 [facility] Comment on above: mL/min/1.73m2 CKD-EP I Creatinine Equation (2020) Hematocrit Auto (Bld) [Volum e fraction]Ordered By: Chiquis Azul on 12-21-2024 Hematocrit (Bld) [Volume fraction] 39.9 % 37-47 [facility] Hemoglobin A1con 12-21-2024 HbA1c (Bld) [Mass fraction] 5.9 % High <=5.6 [facility] Comment on above: Result Comment: Norm al < 5.7 % Prediabetic 5.7 - 6.4 % Diabetic >or= 6.5 % Please note range changes. Performed By: #### L 500.4050, L100.0500, L509.1000, L501.9985 #### [facility] [address] [place], [address] Hemoglobin A1c percentageOrd ered By: Chiquis Azul on 12-21-2024 HbA1c (Bld) [Mass fraction] 5.9 % High <5.7 [facility] Comment on above: Normal < 5.7 % Predi abetic 5.7 - 6.4 % Diabetic >or= 6.5 % Please note range changes. Hemoglobin measurementOrdere d By: Chiquis Azul on 12-21-2024 Hemoglobin (Bld) [Mass/Vol] 13.3 g/dL 12.0-15.0 [facility] - Chemistry and C hemistry - challengeOrdered By: Chiquis Azul on 12-21-2024 AST [Catalytic activity/Vol] 24 U/L <32 [facility] MCV (mean corpuscular volume ) determinationOrdered By: Chiquis Azul on 12-21-2024 MCV (RBC) [Entitic vol] 90.5 fL 81-99 [facility] Mean corpuscular hemoglobin (MCH) determinationOrdered By: Chiquis Azul on 12-21-2024 MCH (RBC) [Entitic mass] 30.2 pg 27.0-32.0 [facility] Mean corpuscular hemoglobin concentration (MCHC) determinationOrdered By: Chiquis Azul on 12-21-2024 MCHC (RBC) [Mass/Vol] 33.3 g/dL 32-36 [facility] Mean platelet volume determi nationOrdered By: Chiquis Azul on 12-21-2024 Platelet mean volume (Bld) [Entitic vol] 9.2 fL 6.2-12.0 [facility] PTHINon 12-21-2024 PTH 62 pg/mL High 11-61 [facility] Comment on above: Performed By: #### L 500.4050, L100.0500, L509.1000, L501.9985 #### [facility] [address] [place], [address] Platelet countOrdered By: Chris Azul on 12-21-2024 Platelets (Bld) [#/Vol] 197 10*3/uL 150-450 [facility] Potassium measurement (mass/ volume)Ordered By: Chiquis Azul on 12-21-2024 Potassium (Unsp spec) [Mass/Vol] 4.2 mmol/L 3.3-5.1 [facility] RBC Auto (Bld) [#/Vol]Ordere d By: Chiquis Azul on 12-21-2024 RBC (Bld) [#/Vol] 4.41 10*6/uL 4.2-5.4 [facility] Serum creatinine measurement (mass/volume)Ordered By: Chiquis Azul on 12-21-2024 Creatinine [Mass/Vol] 1.01 mg/dL 0.70-1.20 [facility] Serum globulin measurementOr dered By: Chiquis Azul on 12-21-2024 Globulin (S) [Mass/Vol] 2.4 g/dL 2.2-4.2 [facility] Serum glucose measurement (m ass/volume)Ordered By: Chiquis Azul on 12-21-2024 Glucose [Mass/Vol] 129 mg/dL High 70-99 [facility] Serum or plasma alanine santos otransferase (ALT) measurementOrdered By: Chiquis Azul on 12-21-2024 ALT [Catalytic activity/Vol] 22 U/L <35 [facility] Serum or plasma albumin javon urement (mass/volume)Ordered By: Chiquis Azul on 12-21-2024 Albumin [Mass/Vol] 4.0 g/dL 3.4-4.8 [facility] Serum or plasma albumin/glob ulin mass ratioOrdered By: Chiquis Azul on 12-21-2024 Albumin/Globulin [Mass ratio] 1.7 {ratio} 0.9-2.4 [facility] Serum or plasma alkaline concepcion sphatase measurementOrdered By: Chiquis Azul on 12-21-2024 ALP [Catalytic activity/Vol] 73 U/L 35-104 [facility] Serum or plasma calcium javon urement (mass/volume)Ordered By: Chiquis Azul on 12-21-2024 Calcium [Mass/Vol] 8.8 mg/dL 7.6-11.0 [facility] Serum or plasma urea nitroge n measurement (mass/volume)Ordered By: Chiquis Azul on 12-21-2024 Urea nitrogen [Mass/Vol] 15 mg/dL 4-19 [facility] Sodium levelOrdered By: Tez Azul on 12-21-2024 Sodium [Moles/Vol] 138 mmol/L 133-145 [facility] Total proteinOrdered By: Myke Azul on 12-21-2024 Protein [Mass/Vol] 6.3 g/dL 5.9-8.4 [facility] White blood cell (WBC) count Ordered By: Chiquis Latha on 12-21-2024 WBC (Bld) [#/Vol] 4.7 10*3/uL 4.4-11.0 [facility] Plastic Surgery Visit Report on 10-19-2024 Plastic Surgery Visit Report [facility] Plastic Reconstructive Surgery [address], [address] [place] [address] OFFICE VISIT Date of Service: 10/19/24 MR#: [id number] Acct: [id number] Name: CYNTHIA WALLACE Rep #: [id number] : 1955 Provider: Dr. Celso oRd MD Age/Sex: 69/F Location: [facility] Status: Signed Intake Vital Signs 08/03/24 14:18 10/12/24 12:58 10/19/24 13:36 Height 5 ft 3 in 5 ft 3 in Weight: 204 lb 9 oz BMI 36.2 BP 142/78 H 130/74 H Blood Pressure Location Rt brachial Rt brachial Position Sitting Sitting Respiration 16 18 Pulse 69 81 Pulse Source Monitor Monitor Temp 97.7 F L Pulse Oximetry (%) 98 96 Oxygen Delivery Method room air room air Intake Visit Reasons: 2 M FU Chief Complaint: f/u lymphedema Is patient in pain?: Yes Allergies Dressing: Non-Medicated Allergy (Intermediate, Verified 10/19/24 13:32) Rash Medications ???Medication ???Instructions ???Recorded ???Confirmed ???Type cholecalciferol (vitamin D3) 25 25 mcg PO DAILY 05/17/23 10/19/24 History mcg (1,000 unit) capsule multivitamin 1 tab PO DAILY 05/17/23 10/19/24 H istory pantoprazole 40 mg tablet,delayed 40 mg PO DAILY 05/17/23 10/19/24 History release BALANCE OF NATURE FRUITS 3 tab PO DAILY 07/14/23 10/19/24 H istory BALANCE OF NATURE VEGETABLES 3 tab PO DAILY 07/14/23 10/19/24 H istory tamoxifen 20 mg tablet 20 mg PO DAILY #90 tabs 01/24/24 0 10/19/24 Rx ZORA [place] MUSHROOM GUMMY PO 10/10/24 10/19/24 History Have you fallen in the past year?: No PFSH Medical History Anemia Cough Constipation 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 Encounter for education Post-menopausal History of edema Abnormal MRI, breast Wears glasses Cancer Arthritis History of hiatal hernia Gastric reflux Non-smoker History of echocardiogram Triple negative breast cancer Abnormal mammogram of left breast Left breast mass Hemorrhoids Abdominal pain Surgical History History of partial mastectomy of both breasts History of lymph node dissection of left axilla History of foot surgery H/O: hysterectomy Total knee replacement status Family History Mother Breast cancer Diabetes Grandmother Breast cancer Sister Breast cancer Father Cancer Prostate and metastatic bone Heart disease Social History Smoking Status: Never smoker alcohol intake: never substance use type: does not use additional social history: pt denies vaping, denies marijuana use, denies edibles, denies aspirin and ibuprofen use HPI 2 M FU Details: RAYN Wallace is a 68-year-old female with past medical history of anal cancer in 2018 (in remission) who was found to have an abnormal mammogram in March 2023 that demonstrated a left breast mass that was biopsied and was positive for invasive ductal carcinoma, triple negative. Upon further evaluation with an MRI, a right breast mass was also found. She underwent bilateral breast conserving therapy (partial mastectomies/lumpecto mies) in June 2023, which demonstrated a right breast ductal carcinoma in situ. The right axillary contents were sampled with a sentinel node and were negative; however, the left axillary contents were clinically positive during the surgery, and 4 out of 11 lymph nodes from the left axillary dissection were positive for cancer. She underwent radiation of both breasts and axilla, and completed chemotherapy (port was removed). Approximately 6 months following the surgery (1.5 months ago), she started developing intermittent swelling and feelings of heaviness in the left upper extremity (side of the full lymph node dissection) that got worse throughout the course of the day. She followed up with her breast surgeon Dr. Kraus who referred her to lymphedema clinic. She went to the occupational therapist/lymphedema specialist at the lymphedema clinic last week and was fitted for compression garments for total decongestive therapy and begin working with their team. The lymphedema specialist, Guillermina Johnson, took measurements at her visit last week demonstrating an increased size of the left forearm and wrist compared to the right (see measurements below). Today she reports that the feelings of heaviness and swelling are worse throughout the day as she uses her arm and hand, and she noticed that she cannot see the tendons or the veins in her wrist and forearm like she can and the other hand and forearm as the swelling worsens during the day. No history of cellulitis in the left upper extremity. Patient does not smoke She does not have any history of bl (more content not included)... Normal [facility] Radiation Oncology Visiton 0 10-12-2024 Radiation Oncology Visit [facility] [address] [place] [address] OFFICE VISIT Date of Service: 10/12/24 1256 MR#: [id number] Acct: [id number] Name: CYNTHIA WALLACE Olga Rep #: [id number] : 1955 From: Germán Gonzalez DO Age/Sex: 69/F Location: [facility] Status: Signed Intake Vital Signs 06/13/24 09:38 10/10/24 11:33 10/12/24 12:58 Height 5 ft 3 in 5 ft 3 in 5 ft 3 in Weight: 205 lb 8 oz 204 lb 9 oz BMI 36.3 36.2 BP 134/74 H 142/78 H Blood Pressure Location Rt brachial Rt brachial Position Sitting Sitting Respiration 18 16 Pulse 76 69 Pulse Source Monitor Monitor Temp 98.4 F 97.7 F L Temperature Source Temporal Artery Temporal Artery Pulse Oximetry (%) 96 98 Oxygen Delivery Method room air room air Intake Visit Reasons: 4 MONTH F/U BREAST Is patient in pain?: Yes (LEFT ARM) Pain scale (1-10): 3 Allergies Dressing: Non-Medicated Allergy (Intermediate, Verified 08/03/24 14:15) Rash Medications ???Medication ???Instructions ???Recorded ???Confirmed ???Type cholecalciferol (vitamin D3) 25 25 mcg PO DAILY 05/17/23 10/12/24 History mcg (1,000 unit) capsule multivitamin 1 tab PO DAILY 05/17/23 10/12/24 H istory pantoprazole 40 mg tablet,delayed 40 mg PO DAILY 05/17/23 10/12/24 History release BALANCE OF NATURE FRUITS 3 tab PO DAILY 07/14/23 10/12/24 H istory BALANCE OF NATURE VEGETABLES 3 tab PO DAILY 07/14/23 10/12/24 H istory tamoxifen 20 mg tablet 20 mg PO DAILY #90 tabs 01/24/24 0 10/12/24 Rx [place] MUSHROOM GUMMY PO 10/10/24 10/12/24 History Have you fallen in the past year?: No PFSH PFSH Medical History Anemia Cough Constipation 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 Encounter for education Post-menopausal History of edema Abnormal MRI, breast Wears glasses Cancer Arthritis History of hiatal hernia Gastric reflux Non-smoker History of echocardiogram Triple negative breast cancer Abnormal mammogram of left breast Left breast mass Hemorrhoids Abdominal pain Home Medications ???Medication ???Instructions ???Recorded ???Last Taken ???Type cholecalciferol (vitamin D3) 25 25 mcg PO DAILY 05/17/23 08/15/23 History mcg (1,000 unit) capsule multivitamin 1 tab PO DAILY 05/17/23 03/08/24 H istory pantoprazole 40 mg tablet,delayed 40 mg PO DAILY 05/17/23 03/08/24 History release BALANCE OF NATURE FRUITS 3 tab PO DAILY 07/14/23 08/15/23 H istory BALANCE OF NATURE VEGETABLES 3 tab PO DAILY 07/14/23 08/15/23 H istory tamoxifen 20 mg tablet 20 mg PO DAILY #90 tabs 01/24/24 U nknown Rx [place] MUSHROOM GUMMY PO 10/10/24 Unknown History Allergy/AdvReac Type Severity Reaction Status Date / Time Dressing: Non-Medicated Allergy Intermediate Rash Verified 08/03/24 14:15 Family History Mother Breast cancer Diabetes Grandmother Breast cancer Sister Breast cancer Father Cancer Prostate and metastatic bone Heart disease Surgical History History of partial mastectomy of both breasts History of lymph node dissection of left axilla History of foot surgery H/O: hysterectomy Total knee replacement status Social History Smoking Status: Never smoker alcohol intake: never substance use type: does not use additional social history: pt denies vaping, denies marijuana use, denies edibles, denies aspirin and ibuprofen use Diagnosis: Cynthia Wallace is a 69 year-old female diagnosed with pathologic stage IIIA (pT1c pN2a M0) grade 2 invasive ductal carcinoma (ER 0%, SC 0%, HER2 0+ IHC) of the left breast and pathologic stage 0 (pTis pN0 (sn) M0) grade 1 DCIS (ER > 95%, SC > 95%, HER2 0+ IHC) of the right breast status post bilateral screening mammography (04/22/2023), left breast ultrasound (04/26/2023), left breast stereotactic core biopsy (05/05/2023), bilateral breast MRI (06/07/2023), right breast ultrasound (06/18/2023), right breast core biopsy (06/29/2023), bilateral partial mastectomy with bilateral axillary sentinel lymph node and left axillary dissection (07/22/2023), CT chest/abdomen/pelvis with contrast (07/30/2023), completion of adjuvant chemotherapy (From 08/19/2023 ??? 10/21/2023). From 11/29/2023 ??? 12/28/2023 she completed adjuvant radiation to the left breast and regional lymph nodes as well as adjuvant APBI to the right breast.??? History of Present Illness: 05/04/2022: Patient completed ultrasound-guided biopsy of the left breast.??? This demonstrated mild duct ectasia, no evidence of malignancy. 04/22/2023: Bilateral screening mammography was performed.??? This demonstrated increase in size of a nodular density seen in (more content not included)... Normal [facility] Absolute lymphocyte countOrd ered By: Romain Griffin on 10-10-2024 Lymphocytes Auto (Unsp spec) [#/Vol] 0.65 10*3/uL Low 0.83-4.51 [facility] Absolute neutrophil countOrd ered By: Romain Griffin on 10-10-2024 Neutrophils (Bld) [#/Vol] 3.0 10*3/uL 2.0-7.7 [facility] Anion gap in Serum or Plasma Ordered By: Romain Daltonhoda on 10-10-2024 Anion gap [Moles/Vol] 11 mmol/L 11-09 [facility] Automated lymphocyte count a s percentage of total leukocytesOrdered By: Romain Daltonhoda on 10-10-2024 Lymphocytes/100 WBC Auto (Unsp spec) 15.6 % Low 19-41 [facility] BUN/creatinine ratioOrdered By: Romain Daltonhoda on 10-10-2024 Urea nitrogen/Creatinine [Mass ratio] 19.4 mg/mg 10- [facility] Basophil percentageOrdered B y: Romain Daltonhoda on 10-10-2024 Basophils/100 WBC (Bld) 1.0 % 0-1 [facility] Bilirubin, totalOrdered By: Romain Daltonhoda on 10-10-2024 Bilirubin [Mass/Vol] 0.31 mg/dL 0.00-1.30 [facility] CBC W/Diff, Automatedon 09-26 Absolute Lymph 0.65 X10 3/uL Low 0.83-4.51 [facility] Comment on above: Performed By: #### L 100.0100, L504.2610, L500.4050 ####[facility] [address] [place], [address] Absolute Neut 3.0 X10 3/uL Normal 2.0-7.7 [facility] Comment on above: Performed By: #### L 100.0100, L504.2610, L500.4050 ####[facility] [address] [place], [address] Basophils/100 WBC (Bld) 1.0 % Normal 0-1 [facility] Comment on above: Performed By: #### L 100.0100, L504.2610, L500.4050 ####[facility] [address] [place], [address] Eosinophils/100 WBC (Bld) 2.6 % Normal 0-5 [facility] Comment on above: Performed By: #### L 100.0100, L504.2610, L500.4050 ####[facility] [address] [place], [address] Erythrocyte distribution width (RBC) [Ratio] 12.4 % Normal 11.6-14.6 [facility] Comment on above: Performed By: #### L 100.0100, L504.2610, L500.4050 ####[facility] [address] [place], [address] Hematocrit (Bld) [Volume fraction] 37.5 % Normal 37-47 [facility] Comment on above: Performed By: #### L 100.0100, L504.2610, L500.4050 ####[facility] [address] [place], [address] Hemoglobin (Bld) [Mass/Vol] 12.6 g/dL Normal 12.0-15.0 [facility] Comment on above: Performed By: #### L 100.0100, L504.2610, L500.4050 ####[facility] [address] [place], [address] IG% 0.200 Normal 0.0-0.9 [facility] Comment on above: Result Comment: IG% - Immature Granulocytes (promyelocytes, myelocytes and metamyelocytes) > 1% indicates that a LEFT SHIFT is Present. Performed By: #### L 100.0100, L504.2610, L500.4050 ####[facility] [address] [place], [address] Lymphocytes/100 WBC (Bld) 15.6 % Low 19-41 [facility] Comment on above: Performed By: #### L 100.0100, L504.2610, L500.4050 ####[facility] [address] [place], [address] MCH (RBC) [Entitic mass] 30.4 pg Normal 27.0-32.0 [facility] Comment on above: Performed By: #### L 100.0100, L504.2610, L500.4050 ####[facility] [address] [place], [address] MCHC (RBC) [Mass/Vol] 33.6 g/dL Normal 32-36 [facility] Comment on above: Performed By: #### L 100.0100, L504.2610, L500.4050 ####[facility] [address] [place], [address] MCV (RBC) [Entitic vol] 90.6 fL Normal 81-99 [facility] Comment on above: Performed By: #### L 100.0100, L504.2610, L500.4050 ####[facility] [address] [place], [address] Monocytes/100 WBC (Bld) 9.3 % Normal 0-10 [facility] Comment on above: Performed By: #### L 100.0100, L504.2610, L500.4050 ####[facility] [address] [place], [address] Neutrophils/100 WBC (Bld) 71.3 % High 47-70 [facility] Comment on above: Performed By: #### L 100.0100, L504.2610, L500.4050 ####[facility] [address] [place], [address] Nucleated RBC (Bld) [#/Vol] 0 10*3/uL Normal 0-5 [facility] Comment on above: Performed By: #### L 100.0100, L504.2610, L500.4050 ####[facility] [address] [place], [address] Platelet mean volume (Bld) [Entitic vol] 8.4 fL Normal 6.2-12.0 [facility] Comment on above: Performed By: #### L 100.0100, L504.2610, L500.4050 ####[facility] [address] [place], [address] Platelets (Bld) [#/Vol] 261 10*3/uL Normal 150-450 [facility] Comment on above: Performed By: #### L 100.0100, L504.2610, L500.4050 ####[facility] [address] [place], [address] RBC (Bld) [#/Vol] 4.14 10*6/uL Low 4.2-5.4 [facility] Comment on above: Performed By: #### L 100.0100, L504.2610, L500.4050 ####[facility] [address] [place], [address] RDW SD 41.0 fl Normal 35.1-43.9 [facility] Comment on above: Performed By: #### L 100.0100, L504.2610, L500.4050 ####[facility] [address] [place], [address] WBC (Bld) [#/Vol] 4.2 10*3/uL Low 4.4-11.0 [facility] Comment on above: Performed By: #### L 100.0100, L504.2610, L500.4050 ####[facility] [address] [place], [address] Carbon dioxide, total [Moles /volume] in Central venous bloodOrdered By: Rmoain Griffin on 10-10-2024 CO2 [Moles/Vol] 24.0 mmol/L 21.0-32.0 [facility] Chloride assayOrdered By: Danuta Griffin on 10-10-2024 Chloride [Moles/Vol] 106 mmol/L 98-108 [facility] Comprehensive Metabolic Prof ilon 10-10-2024 Albumin [Mass/Vol] 4.0 g/dL Normal 3.4-4.8 [facility] Comment on above: Performed By: #### L 100.0100, L504.2610, L500.4050 ####[facility] [address] [place], [address] Albumin/Globulin [Mass ratio] 1.6 {ratio} Normal 0.9-2.4 [facility] Comment on above: Performed By: #### L 100.0100, L504.2610, L500.4050 ####[facility] [address] [place], [address] ALK PHOS 73 U/L Normal 35-104 [facility] Comment on above: Performed By: #### L 100.0100, L504.2610, L500.4050 ####[facility] [address] [place], [address] ALT [Catalytic activity/Vol] 19 U/L Normal <=34 [facility] Comment on above: Performed By: #### L 100.0100, L504.2610, L500.4050 ####[facility] [address] [place], [address] AST [Catalytic activity/Vol] 20 U/L Normal <=31 [facility] Comment on above: Performed By: #### L 100.0100, L504.2610, L500.4050 ####[facility] [address] [place], [address] Bilirubin [Mass/Vol] 0.31 mg/dL Normal 0.00-1.30 [facility] Comment on above: Performed By: #### L 100.0100, L504.2610, L500.4050 ####[facility] [address] [place], [address] BUN/CRE 19.4 RATIO Normal 10-20 [facility] Comment on above: Performed By: #### L 100.0100, L504.2610, L500.4050 ####[facility] [address] [place], [address] Calcium [Mass/Vol] 8.1 mg/dL Normal 7.6-11.0 [facility] Comment on above: Performed By: #### L 100.0100, L504.2610, L500.4050 ####[facility] [address] [place], [address] Chloride [Moles/Vol] 106 mmol/L Normal 98-108 [facility] Comment on above: Performed By: #### L 100.0100, L504.2610, L500.4050 ####[facility] [address] [place], [address] CO2 [Moles/Vol] 24.0 mmol/L Normal 21.0-32.0 [facility] Comment on above: Performed By: #### L 100.0100, L504.2610, L500.4050 ####[facility] [address] [place], [address] Creatinine [Mass/Vol] 0.93 mg/dL Normal 0.70-1.20 [facility] Comment on above: Performed By: #### L 100.0100, L504.2610, L500.4050 ####[facility] [address] [place], [address] ECRCL 60.20 ml/min Normal 50-250 [facility] Comment on above: Performed By: #### L 100.0100, L504.2610, L500.4050 ####[facility] [address] [place], [address] GAP 11 Normal 5-15 [facility] Comment on above: Performed By: #### L 100.0100, L504.2610, L500.4050 ####[facility] [address] [place], [address] GFR/1.73 sq M.predicted among non-blacks MDRD (S/P/Bld) [Vol rate/Area] 65 mL/min/{1.73_m2} Normal >60 [facility] Comment on above: Result Comment: mL/m in/1.73m2 CKD-EPI Creatinine Equation (2020) Performed By: #### L 100.0100, L504.2610, L500.4050 ####[facility] [address] [place], [address] Globulin (S) [Mass/Vol] 2.5 g/dL Normal 2.2-4.2 [facility] Comment on above: Performed By: #### L 100.0100, L504.2610, L500.4050 ####[facility] [address] [place], [address] Glucose [Mass/Vol] 109 mg/dL High 70-99 [facility] Comment on above: Performed By: #### L 100.0100, L504.2610, L500.4050 ####[facility] [address] [place], [address] Potassium [Moles/Vol] 3.7 mmol/L Normal 3.3-5.1 [facility] Comment on above: Performed By: #### L 100.0100, L504.2610, L500.4050 ####[facility] [address] [place], [address] Sodium [Moles/Vol] 141 mmol/L Normal 133-145 [facility] Comment on above: Performed By: #### L 100.0100, L504.2610, L500.4050 ####[facility] [address] [place], [address] T PROT 6.5 g/dL Normal 5.9-8.4 [facility] Comment on above: Performed By: #### L 100.0100, L504.2610, L500.4050 ####[facility] [address] [place], [address] Urea nitrogen [Mass/Vol] 18 mg/dL Normal 4-19 [facility] Comment on above: Performed By: #### L 100.0100, L504.2610, L500.4050 ####[facility] [address] [place], [address] Eosinophil percentageOrdered By: Romain Griffin on 10-10-2024 Eosinophils/100 WBC (Bld) 2.6 % 0-5 [facility] Erythrocyte distribution wid th (RBC) [Ratio]Ordered By: Romain Griffin on 10-10-2024 Erythrocyte distribution width (RBC) [Entitic vol] 41.0 fL 35.1-43.9 [facility] Erythrocyte distribution wid th ratioOrdered By: Romain Griffin on 10-10-2024 Erythrocyte distribution width (RBC) [Ratio] 12.4 % 11.6-14.6 [facility] Erythrocyte distribution wid th standard deviationOrdered By: Romain Griffin on 10-10-2024 Erythrocyte distribution width (RBC) [Ratio] 41.0 fl 35.1-43.9 [facility] Estimation of creatinine toni aranceOrdered By: Romain Griffin on 10-10-2024 Estimated Creatinine Clearance Calc 60.20 ml/min 50-250 [facility] GFR/1.73 sq M.predicted philomena g non-blacks MDRD (S/P/Bld) [Vol rate/Area]Ordered By: Romain Griffin on 10-10-2024 Estimated GFR (MDRD) Non-Af Amer 65 >60 [facility] Comment on above: mL/min/1.73m2 CKD-EP I Creatinine Equation (2020) Glomerular filtration rate ( GFR) estimation/1.73 sq m using serum, plasma, or whole bOrdered By: Romain Griffin on 10-10-2024 GFR/1.73 sq M.predicted among non-blacks MDRD (S/P/Bld) [Vol rate/Area] 65 mL/min/{1.73_m2} >60 [facility] Comment on above: mL/min/1.73m2 CKD-EP I Creatinine Equation (2020) Hematocrit Auto (Bld) [Volum e fraction]Ordered By: Romain Griffin on 10-10-2024 Hematocrit (Bld) [Volume fraction] 37.5 % 37-47 [facility] Hemoglobin measurementOrdere d By: Romain Griffin on 10-10-2024 Hemoglobin (Bld) [Mass/Vol] 12.6 g/dL 12.0-15.0 [facility] Immature granulocytes/100 WB C Auto (Bld)Ordered By: Romain Griffin on 10-10-2024 Immature granulocytes/100 WBC (Bld) 0.200 % 0.0-0.9 [facility] Comment on above: IG% - Immature Granu locytes (promyelocytes, myelocytes and metamyelocytes) > 1% indicates that a LEFT SHIFT is Present. LDHon 10-10-2024 LDH 183 U/L Normal 84-246 [facility] Comment on above: Order Comment: 1 Performed By: #### L 100.0100, L504.2610, L500.4050 ####[facility] [address] [place], [place], [id number] Laboratory - Chemistry and C hemistry - challengeOrdered By: Romain Griffin on 10-10-2024 AST [Catalytic activity/Vol] 20 U/L <32 [facility] Lactate dehydrogenase (LDH) measurementOrdered By: Romain Griffin on 10-10-2024 LDH [Catalytic activity/Vol] 183 U/L 84-246 [facility] Lymphocytes Auto (Unsp spec) [#/Vol]Ordered By: Romain Griffin on 10-10-2024 Lymphocytes (Bld) [#/Vol] 0.65 10*3/uL Low 0.83-4.51 [facility] Lymphocytes/100 WBC Auto (Un sp spec)Ordered By: Romain Griffin on 10-10-2024 Lymphocytes/100 WBC (Bld) 15.6 % Low 19-41 [facility] MCV (mean corpuscular volume ) determinationOrdered By: Romain Griffin on 10-10-2024 MCV (RBC) [Entitic vol] 90.6 fL 81-99 [facility] Mean corpuscular hemoglobin (MCH) determinationOrdered By: Romain Griffin on 10-10-2024 MCH (RBC) [Entitic mass] 30.4 pg 27.0-32.0 [facility] Mean corpuscular hemoglobin concentration (MCHC) determinationOrdered By: Romain Griffin on 10-10-2024 MCHC (RBC) [Mass/Vol] 33.6 g/dL 32-36 [facility] Mean platelet volume determi nationOrdered By: Romain Griffin on 10-10-2024 Platelet mean volume (Bld) [Entitic vol] 8.4 fL 6.2-12.0 [facility] Monocyte percentageOrdered B y: Romain Griffin on 10-10-2024 Monocytes/100 WBC (Bld) 9.3 % 0-10 [facility] Neutrophil percentageOrdered By: Romain Griffin on 10-10-2024 Neutrophils/100 WBC (Bld) 71.3 % High 47-70 [facility] Nucleated red blood cell per centageOrdered By: Romain Griffin on 10-10-2024 Nucleated RBC/100 WBC (Bld) [Ratio] 0 % 0-5 [facility] Oncology Visit Reporton 09-26 Oncology Visit Report [facility] [address] [place] [address] OFFICE VISIT Date of Service: 10/10/24 1133 MR#: [id number] Acct: [id number] Name: CYNTHIA WALLACE Rep #: [id number] : 1955 From: Romain Griffin MD Age/Sex: 69/F Location[facility] Status: Signed HPI Subjective Date of Service 10/10/24 Chief Complaint Follow up L breast cancer. History of Present Illness 69y.o.woman with H/O anal cancer in 2018, was found to have abnormal mammogram on 04/22/2023-[facility] lateral breast 7.7mm nodule. US L breast on 04/26/2023 showed 6mm nodule at 3:00 position. Stereotactic biopsy on 05/05/2023 showed Invasive Ductal carcinoma, ER/SC/Her2 negative, Ki67 10%. She was referred for further evaluation and management, MRI breast was requested which showed bilateral breast nodules. She underwent bilateral breast partial mastectomy on 07/22/2023. Pathology showed Invasive Ductal Carcinoma, tumor size 1.5cm, grade 2, margins negative, lymph nodes / positive, ER negative, SC negative, Her2 negative, Ki 67 10%. Pathologic staging pT1c pN2a. Prognostic staging IIIC. R side showed DCIS. Adjuvant TC 08/19/2023-10/21/23. BRCA 1 2 was negative on 08/29/2023. Got adjuvant Radiation from 11/29/2023 to 12/29/2023 to both breast. Had lymphedema surgery L upper extremity on 03/09/2024. Had Lymph edema surgery on 03/29/2024. She is on Tamoxifen for R DCIS. Comes for follow up. Feels well. 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 Encounter for education Post-menopausal History of edema Abnormal MRI, breast Wears glasses Cancer Arthritis History of hiatal hernia Gastric reflux Non-smoker History of echocardiogram Triple negative breast cancer Abnormal mammogram of left breast Left breast mass Hemorrhoids Abdominal pain Surgical History History of partial mastectomy of both breasts History of lymph node dissection of left axilla History of foot surgery H/O: hysterectomy Total knee replacement status Family History Mother Breast cancer Diabetes Grandmother Breast cancer Sister Breast cancer Father Cancer Prostate and metastatic bone Heart disease Social History Smoking Status: Never smoker alcohol intake: never substance use type: does not use additional social history: pt denies vaping, denies marijuana use, denies edibles, denies aspirin and ibuprofen use Intake Vital Signs 04/17/24 11:32 08/03/24 14:18 10/10/24 11:33 Height 5 ft 3 in 5 ft 3 in 5 ft 3 in Weight: 93.213 kg BMI 36.3 BP 134/74 H Blood Pressure Location Rt brachial Position Sitting Respiration 18 Pulse 76 Pulse Source Monitor Temp 98.4 F Temperature Source Temporal Artery Pulse Oximetry (%) 96 Oxygen Delivery Method room air Intake Allergies Dressing: Non-Medicated Allergy (Intermediate, Verified 08/03/24 14:15) Rash Medications ???Medication ???Instructions ???Recorded ???Confirmed ???Type cholecalciferol (vitamin D3) 25 25 mcg PO DAILY 05/17/23 10/10/24 History mcg (1,000 unit) capsule multivitamin 1 tab PO DAILY 05/17/23 10/10/24 H istory pantoprazole 40 mg tablet,delayed 40 mg PO DAILY 05/17/23 10/10/24 History release BALANCE OF NATURE FRUITS 3 tab PO DAILY 07/14/23 10/10/24 H istory BALANCE OF NATURE VEGETABLES 3 tab PO DAILY 07/14/23 10/10/24 H istory tamoxifen 20 mg tablet 20 mg PO DAILY #90 tabs 01/24/24 0 10/10/24 Rx [place] MUSHROOM GUMMY PO 10/10/24 History Have you fallen in the past year?: No Central Venous Access Central Venous Access: No Laboratory Tests 08/19/23 10/10/24 08:00 10:55 WBC 6.9 4.2 L Hgb 12.1 12.6 Hct 37.3 37.5 Plt Count 209 261 Absolute Neuts (auto) 6.2 3.0 Absolute Lymphs (auto) 0.65 L Sodium 139 141 Potassium 3.8 3.7 Chloride 109 H 106 Carbon Dioxide 23.0 24.0 BUN 17 18 Creatinine 1.13 H 0.93 Est GFR (MDRD) Non-Af 65 Glucose 257 H 109 H Calcium 9.4 8.1 Phosphorus 1.8 L Total Bilirubin 0.40 0.31 AST 9 L 20 ALT 16 19 Alkaline Phosphatase 82 73 Lactate Dehydrogenase 183 Total Protein 7.1 6.5 Albumin 3.7 4.0 Globulin 3.4 2.5 Exam Physical Exam Const alert, oriented x3 and no apparent distress HEENT normocephalic Eyes conjunctivae normal and no scleral icterus Chest Chest Narrative: Port R IC area. Resp normal respiratory effort Auscultation: wheezes expiratory wheezes and diminished lung sounds bilateral lower Cardio regular rate, regular rhythm, S1 normal heart sound and S2 normal heart sound Ext (more content not included)... Normal [facility] Platelet countOrdered By: Danuta Griffin on 10-10-2024 Platelets (Bld) [#/Vol] 261 10*3/uL 150-450 [facility] Potassium (Unsp spec) [Mass/ Vol]Ordered By: Romain Griffin on 10-10-2024 Potassium [Moles/Vol] 3.7 mmol/L 3.3-5.1 [facility] Potassium measurement (mass/ volume)Ordered By: Romain Griffin on 10-10-2024 Potassium (Unsp spec) [Mass/Vol] 3.7 mmol/L 3.3-5.1 [facility] RBC Auto (Bld) [#/Vol]Ordere d By: Romain Griffin on 10-10-2024 RBC (Bld) [#/Vol] 4.14 10*6/uL Low 4.2-5.4 [facility] Serum creatinine measurement (mass/volume)Ordered By: Romain Griffin on 10-10-2024 Creatinine [Mass/Vol] 0.93 mg/dL 0.70-1.20 [facility] Serum globulin measurementOr dered By: Romain Griffin on 10-10-2024 Globulin (S) [Mass/Vol] 2.5 g/dL 2.2-4.2 [facility] Serum glucose measurement (m ass/volume)Ordered By: Romain Griffin on 10-10-2024 Glucose [Mass/Vol] 109 mg/dL High 70-99 [facility] Serum or plasma alanine santos otransferase (ALT) measurementOrdered By: Romain Griffin on 10-10-2024 ALT [Catalytic activity/Vol] 19 U/L <35 [facility] Serum or plasma albumin javon urement (mass/volume)Ordered By: Romain Griffin on 10-10-2024 Albumin [Mass/Vol] 4.0 g/dL 3.4-4.8 [facility] Serum or plasma albumin/glob ulin mass ratioOrdered By: Romain Griffin on 10-10-2024 Albumin/Globulin [Mass ratio] 1.6 {ratio} 0.9-2.4 [facility] Serum or plasma alkaline concepcion sphatase measurementOrdered By: Romain Griffin on 10-10-2024 ALP [Catalytic activity/Vol] 73 U/L 35-104 [facility] Serum or plasma calcium javon urement (mass/volume)Ordered By: Romain Griffin on 10-10-2024 Calcium [Mass/Vol] 8.1 mg/dL 7.6-11.0 [facility] Serum or plasma urea nitroge n measurement (mass/volume)Ordered By: Romain Griffin on 10-10-2024 Urea nitrogen [Mass/Vol] 18 mg/dL 4-19 [facility] Sodium levelOrdered By: Jeffrey Griffin on 10-10-2024 Sodium [Moles/Vol] 141 mmol/L 133-145 [facility] Total proteinOrdered By: Gage Griffin on 10-10-2024 Protein [Mass/Vol] 6.5 g/dL 5.9-8.4 [facility] White blood cell (WBC) count Ordered By: Romain Griffin on 10-10-2024 WBC (Bld) [#/Vol] 4.2 10*3/uL Low 4.4-11.0 [facility] Kidney and Bladderon 025 Kidney and Bladder [facility] Imaging Services [address] [place], [place] [id number] Kidney and Bladder MR#: [id number] Acct: [id number] Name: CYNTHIA WALLACE Rep #: [id number] : 1955 F 69 From: Yaya Pineda i DO PCP: LUCILA Layne Status: REG CLI Study: Kidney and Bladder Date of Exam: 10/05/24 Exam# [id number] Ordering Dr: Chiquis Azul NP [employer] PROCEDURE: KIDNEY AND BLADDER 10/05/2024 REASON FOR EXAM: Stage 3 chronic kidney disease TECHNIQUE: Ultrasound evaluation of the kidneys and urinary bladder. COMPARISON: Abdominal/pelvic CT 08/17/2023 FINDINGS: The right kidney is 11.1 cm in length. The left kidney is 10.4 cm in length. The cortical- medullary differentiation is maintained. No solid-appearing renal mass or obstructive uropathy. No echogenic intrarenal calculus. The urinary bladder is not well distended on this examination, limiting evaluation. Both ureteral jets are demonstrated. US/Kidney and Bladder IMPRESSION: Unremarkable renal ultrasound. No obstructive uropathy. Limited evaluation of the urinary bladder. Both ureteral jets are demonstrated. [facility] CC: LUCILA Azul Cardiac Tech: Signed Normal [facility] Calculated very low density lipoprotein (VLDL) cholesterol measurementOrdered By: Chiquis Azul on 09-28-2024 Calculated very low density lipoprotein (VLDL) cholesterol measurement 23 mg/dL 5-40 [facility] VLDL Cholesterol 23 mg/dL 5-40 [facility] LDL calc ser/plasOrdered By: Chiquis Azul on 09-28-2024 Cholesterol in LDL [Mass/Vol] 90 mg/dL [facility] Comment on above: Ewsqpcjkip=547-359 m g/dL & Higher Kpeu=703 mg/dL or greater LDL Cholesterol, Calculated 90 mg/dL [facility] Comment on above: Ajiwmfeezl=115-169 m g/dL & Higher Hdev=433 mg/dL or greater Lipid Profileon 09-28-2024 CHOL:HDL 3.43 Normal [facility] Comment on above: Performed By: #### L 500.4100, L506.1001 ####[facility] [address] [place], [place], [id number] Cholesterol [Mass/Vol] 160 mg/dL Normal <=200 [facility] Comment on above: Result Comment: Chol esterol level, Desirable <200 mg/dL Borderline high cholesterol 200-239 mg/dL High cholesterol >=240 mg/dL Recommendations of the NCEP Adult Treatment Panel for the following risk-cutoff thresholds for the [place] population. Performed By: #### L 500.4100, L506.1001 ####[facility] [address] [place], [address] Cholesterol in HDL [Mass/Vol] 47 mg/dL Normal [facility] Comment on above: Result Comment: Valorie onal Cholesterol Education Program (NCEP) guidelines: <40 mg/dL: Low HDL-cholesterol (major risk factor for CHD) >= 60 mg/dL: High HDL-cholesterol (negative risk factor for CHD) HDL-cholesterol is affected by a number of factors, e.g. smoking, exercise, hormones, sex and age. Performed By: #### L 500.4100, L506.1001 ####[facility] [address] [place], [address] Cholesterol in LDL [Mass/Vol] 90 mg/dL Normal [facility] Comment on above: Result Comment: Bord ijszdv=423-511 mg/dL Higher Wirr=566 mg/dL or greater Performed By: #### L 500.4100, L506.1001 ####[facility] [address] [place], [address] Cholesterol in VLDL [Mass/Vol] 23 mg/dL Normal 5-40 [facility] Comment on above: Performed By: #### L 500.4100, L506.1001 ####[facility] [address] [place], [address] Triglyceride [Mass/Vol] 115 mg/dL Normal [facility] Comment on above: Result Comment: The drugs N-Acetylcysteine and Metamizole may falsely depress this assay. Normal range: <150 mg/dL Borderline High: 150-199 mg/dL High: 200-499 mg/dL Very High: >500 mg/dL Performed By: #### L 500.4100, L506.1001 ####[facility] [address] [place], [address] Screening total cholesterol/ high density lipoprotein (HDL) cholesterol ratioOrdered By: Chiquis Azul on 09-28-2024 Cholesterol.total/Rayne sterol in HDL [Mass ratio] 3.43 {ratio} [facility] Serum or plasma cholesterol in HDL measurement (mass/volume)Ordered By: Chiquis Azul on 09-28-2024 Cholesterol in HDL [Mass/Vol] 47 mg/dL >40 [facility] Comment on above: National Cholesterol Education Program (NCEP) guidelines:<40 mg/dL: Low HDL-cholesterol (major risk factor for CHD)>= 60 mg/dL: High HDL-cholesterol (negative risk factor for CHD)HDL-cholesterol is affected by a number of factors, e.g. smoking, exercise, hormones, sex and age. Serum or plasma cholesterol measurement (mass/volume)Ordered By: Chiquis Azul on 09-28-2024 Cholesterol [Mass/Vol] 160 mg/dL <201 [facility] Comment on above: Cholesterol level, D esirable <200 mg/dLBorderline high cholesterol 200-239 mg/dLHigh cholesterol >=240 mg/dLRecommendations of the NCEP Adult Treatment Panel for the following risk-cutoff thresholds for the [place] population. Triglycerides measurementOrd ered By: Chiquis Azul on 09-28-2024 Triglyceride [Mass/Vol] 115 mg/dL <199 [facility] Comment on above: The drugs N-Acetylcy steine and Metamizole may falsely depress this assay. Normal range: <150 mg/dLBorderline High: 150-199 mg/dLHigh: 200-499 mg/dLVery High: >500 mg/dL Vitamin D, 25-hydroxyOrdered By: Chiquis Azul on 09-28-2024 Vitamin D 25-Hydroxy 42.4 ng/mL 30-100 [facility] Comment on above: Vitamin D StatusDefi ciency: <20 ng/mL (50nmol/L)Insufficiency: 20-30 ng/mL (50-75 nmol/L)Sufficiency: 30-100 ng/mL (75-250 nmol/L)Toxicity: >100 ng/mL (>250 nmol/L) Vitamin D,25 Hydroxyon 09-28 Vitamin D 25-OH 42.4 ng/mL Normal 30-100 [facility] Comment on above: Result Comment: Lizzy min D Status Deficiency: <20 ng/mL (50nmol/L) Insufficiency: 20-30 ng/mL (50-75 nmol/L) Sufficiency: 30-100 ng/mL (75-250 nmol/L) Toxicity: >100 ng/mL (>250 nmol/L) Performed By: #### L 500.4100, L506.1001 ####[facility] [address] [place], [address] Plastic Surgery Visit Report on 08-03-2024 Plastic Surgery Visit Report [facility] Plastic Reconstructive Surgery [address], [address] [place] [address] OFFICE VISIT Date of Service: 08/03/24 MR#: [id number] Acct: [id number] Name: CYNTHIA WALLACE Rep #: [id number] : 1955 Provider: Dr. Celso Rod MD Age/Sex: 68/F Location: [facility] Status: Signed Intake Vital Signs 07/04/24 10:01 08/03/24 14:18 Height 5 ft 3 in 5 ft 3 in BP 143/85 H 129/79 H Blood Pressure Location Rt brachial Rt brachial Position Sitting Sitting Respiration 18 18 Pulse 75 86 Pulse Source Monitor Temp 97.5 F L 98.0 F Temp Source Oral Oral Pulse Oximetry (%) 97 95 Oxygen Delivery Method room air room air Intake Visit Reasons: 1 M F/U Chief Complaint: Follow up lymphedema Is patient in pain?: No Allergies Dressing: Non-Medicated Allergy (Intermediate, Verified 08/03/24 14:15) Rash Medications ???Medication ???Instructions ???Recorded ???Confirmed ???Type cholecalciferol (vitamin D3) 25 25 mcg PO DAILY 05/17/23 08/03/24 History mcg (1,000 unit) capsule multivitamin 1 tab PO DAILY 05/17/23 08/03/24 H istory pantoprazole 40 mg tablet,delayed 40 mg PO DAILY 05/17/23 08/03/24 History release BALANCE OF NATURE FRUITS 3 tab PO DAILY 07/14/23 08/03/24 H istory BALANCE OF NATURE VEGETABLES 3 tab PO DAILY 07/14/23 08/03/24 H istory celecoxib 200 mg capsule (Celebrex) 200 mg PO DAILY 12/22/23 History tamoxifen 20 mg tablet 20 mg PO DAILY #90 tabs 01/24/24 0 08/03/24 Rx Have you fallen in the past year?: No Nurse's Note: pt states her left arm is sore underneath Subjective Details: Patient doing well overall. She is still having some tightness and pain in her left axilla from where her lymph node dissection was performed, but she is doing therapy on this area and massage. No problems with the incisions at this point from the LVAs. While measurements from physical therapy are about the same, the patient reports improvements with regards to how often the left arm is swollen (feels like she is able to get more fluid out when she performs therapy exercises or wears compression), and she also reports a significant improvement in the feeling of heaviness. Patient said it is about 50% better when asked about heaviness. Objective Details: Left forearm incisions c/d/i. Her left arm lymphedema is stable. Hypertrophic scar in the area of previous wound healing problems on the dorsal aspect of her forearm. I was able to pinch the skin on the dorsum of the left hand. 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 Encounter for education Post-menopausal History of edema Abnormal MRI, breast Wears glasses Cancer Arthritis History of hiatal hernia Gastric reflux Non-smoker History of echocardiogram Triple negative breast cancer Abnormal mammogram of left breast Left breast mass Hemorrhoids Abdominal pain Surgical History History of partial mastectomy of both breasts History of lymph node dissection of left axilla History of foot surgery H/O: hysterectomy Total knee replacement status Family History Mother Breast cancer Diabetes Grandmother Breast cancer Sister Breast cancer Father Cancer Prostate and metastatic bone Heart disease Social History Smoking Status: Never smoker alcohol intake: never substance use type: does not use additional social history: pt denies vaping, denies marijuana use, denies edibles, denies aspirin and ibuprofen use Assessment and Plan (No Qualifiers) Assessment and Plan (1) Lymphedema: Status: Acute Comment: Persistent Campisi Stage 2 Disease Plan: Persistent Campisi Stage 2 Disease after bypass surgery, but reports 50% improvement of feeling of heaviness and reports subjective improvement in the amount of time it remains swollen. Discussed extensively need for continued therapy and compression for decongestion (occupational therapy has ordered her a pump, and she's waiting for this to arrive). Discussing with OT better fitting garments for compression as she has not been wearing much compression. F/u with me in 3 months to check progress Discussed scar message and possible injection (d (more content not included)... Normal [facility] DIAG MAMM W/CAD, BILATon DIAG MAMM W/CAD, BILAT [facility] Imaging Services [address] [place] [id number] DIAG MAMM W/CAD, BILAT MR#: [id number] Acct: [id number] Name: CYNTHIA WALLACE Rep #: [id number] : 1955 F 68 From: Flakito tse MD PCP: Dr. Germán Gonzalez DO Status: [facility] Study: DIAG MAMM W/CAD, BILAT Date of Exam: 07/27/24 Exam# [id number] Ordering Dr: Germán Gonzalez DO PROCEDURE: DIAG MAMM W/CAD, BILAT REASON FOR EXAM: History of bilateral breast cancer. Prior bilateral lumpectomies with chemotherapy and radiation. Sister with breast cancer. Grandmother with breast cancer. Aunt with breast cancer. TECHNIQUE: Bilateral diagnostic digital breast tomosynthesis with 2D and 3D images. Computer aided detection. COMPARISON: Prior exam(s) dating back to comparison is made with prior study dated April 22, 2023.. FINDINGS: The breasts are heterogeneously dense which may obscure small masses. The patient is status post bilateral lumpectomies. Focal architectural distortion is seen in the central portion of the right breast in keeping with postoperative scarring. A tissue clip marker is seen in the deep lateral aspect of the left breast. Stable examination. BI/DIAG MAMM W/CAD, BILAT IMPRESSION: BI-RADS 2: BENIGN. RECOMMEND ANNUAL MAMMOGRAPHIC SCREENING. Follow-up code: Routine Follow-up Reading Location: [place] [address] CC: Dr. Germán Gonzalez DO Cardiac Tech: Signed Normal [facility] Absolute neutrophil countOrd ered By: Chiquis Azul on 07-24-2024 Neutrophils (Bld) [#/Vol] 2.9 10*3/uL 2.0-7.7 [facility] Albumin to globulin ratioOrd ered By: Chiquis Azul on 07-24-2024 Albumin/Globulin [Mass ratio] 1.1 {ratio} 0.9-2.4 [facility] Basophil percentageOrdered B y: Chiquis Azul on 07-24-2024 Basophils/100 WBC (Bld) 0.3 % 0-1 [facility] Bilirubin, totalOrdered By: Chiquis Azul on 07-24-2024 Bilirubin [Mass/Vol] 0.40 mg/dL 0.20-1.00 [facility] Comment on above: For patients on eltr ombopag therapy, use of Dimension [place] TBIL is not recommended. Blood urea nitrogen (BUN)/cr eatinine ratioOrdered By: Chiquis Azul on 07-24-2024 Urea nitrogen/Creatinine [Mass ratio] 20.0 mg/mg 10-20 [facility] CBC W/Diff, Automatedon 06-29 Absolute Lymph 0.49 X10 3/uL Low 0.83-4.51 [facility] Comment on above: Performed By: #### L 500.4050, L100.0100 ####[facility] [address] [place], [address] Absolute Neut 2.9 X10 3/uL Normal 2.0-7.7 [facility] Comment on above: Performed By: #### L 500.4050, L100.0100 ####[facility] [address] [place], [address] Basophils/100 WBC (Bld) 0.3 % Normal 0-1 [facility] Comment on above: Performed By: #### L 500.4050, L100.0100 ####[facility] [address] [place], [address] Eosinophils/100 WBC (Bld) 0.0 % Normal 0-5 [facility] Comment on above: Performed By: #### L 500.4050, L100.0100 ####[facility] [address] [place], [address] Erythrocyte distribution width (RBC) [Ratio] 12.8 % Normal 11.6-14.6 [facility] Comment on above: Performed By: #### L 500.4050, L100.0100 ####[facility] [address] [place], [address] Hematocrit (Bld) [Volume fraction] 43.5 % Normal 37-47 [facility] Comment on above: Performed By: #### L 500.4050, L100.0100 ####[facility] [address] [place], [address] Hemoglobin (Bld) [Mass/Vol] 14.1 g/dL Normal 12.0-15.0 [facility] Comment on above: Performed By: #### L 500.4050, L100.0100 ####[facility] [address] [place], [address] IG% 0.300 Normal 0.0-0.9 [facility] Comment on above: Result Comment: IG% - Immature Granulocytes (promyelocytes, myelocytes and metamyelocytes) > 1% indicates that a LEFT SHIFT is Present. Performed By: #### L 500.4050, L100.0100 ####[facility] [address] [place], [address] Lymphocytes/100 WBC (Bld) 13.4 % Low 19-41 [facility] Comment on above: Performed By: #### L 500.4050, L100.0100 ####[facility] [address] [place], [address] MCH (RBC) [Entitic mass] 29.5 pg Normal 27.0-32.0 [facility] Comment on above: Performed By: #### L 500.4050, L100.0100 ####[facility] [address] [place], [address] MCHC (RBC) [Mass/Vol] 32.4 g/dL Normal 32-36 [facility] Comment on above: Performed By: #### L 500.4050, L100.0100 ####[facility] [address] [place], [address] MCV (RBC) [Entitic vol] 91.0 fL Normal 81-99 [facility] Comment on above: Performed By: #### L 500.4050, L100.0100 ####[facility] [address] [place], [address] Monocytes/100 WBC (Bld) 7.1 % Normal 0-10 [facility] Comment on above: Performed By: #### L 500.4050, L100.0100 ####[facility] [address] [place], [address] Neutrophils/100 WBC (Bld) 78.9 % High 47-70 [facility] Comment on above: Performed By: #### L 500.4050, L100.0100 ####[facility] [address] [place], [address] Nucleated RBC (Bld) [#/Vol] 0 10*3/uL Normal 0-5 [facility] Comment on above: Performed By: #### L 500.4050, L100.0100 ####[facility] [address] [place], [address] Platelet mean volume (Bld) [Entitic vol] 8.7 fL Normal 6.2-12.0 [facility] Comment on above: Performed By: #### L 500.4050, L100.0100 ####[facility] [address] [place], [address] Platelets (Bld) [#/Vol] 218 10*3/uL Normal 150-450 [facility] Comment on above: Performed By: #### L 500.4050, L100.0100 ####[facility] [address] [place], [address] RBC (Bld) [#/Vol] 4.78 10*6/uL Normal 4.2-5.4 [facility] Comment on above: Performed By: #### L 500.4050, L100.0100 ####[facility] [address] [place], [address] RDW SD 42.9 fl Normal 35.1-43.9 [facility] Comment on above: Performed By: #### L 500.4050, L100.0100 ####[facility] [address] [place], [address] WBC (Bld) [#/Vol] 3.7 10*3/uL Low 4.4-11.0 [facility] Comment on above: Performed By: #### L 500.4050, L100.0100 ####[facility] [address] [place], [address] Carbon dioxide measurementOr dered By: Chiquis Azul on 07-24-2024 CO2 [Moles/Vol] 27.0 mmol/L 21.0-32.0 [facility] Chest PA and Lateralon 07-24 Chest PA and Lateral [facility] Imaging Services [address] [place] [address] Chest PA and Lateral MR#: [id number] Acct: [id number] Name: CYNTHIA WALLACE Rep #: [id number] : 1955 F 68 From: Judah Carrillo MD PCP: Dr. Germán Gonzalez DO Status: REG CLI Study: Chest PA and Lateral Date of Exam: 07/24/24 Exam# [id number] Ordering Dr: Chiquis Azul NP [employer]-C [id number] STUDY: X-RAY CHEST REASON FOR EXAM: Female, 68 years old. Shortness of breath, cough and wheezing. TECHNIQUE: Frontal and lateral views of the chest. COMPARISON: November 04, 2023 FINDINGS: The lungs are clear and expanded. There is no demonstrated pleural abnormality. Normal size heart. Normal mediastinum and christina. Normal visualized pulmonary arteries. Normal visualized aortic arch and descending thoracic aorta. Stable diffuse thoracic spondylosis. Normal visualized ribs, clavicles, and shoulders. There is no demonstrated abnormality of the visualized soft tissue structures of the upper abdomen. RAD/Chest PA and Lateral IMPRESSION: No active or acute cardiopulmonary disease. Electronically Signed: Judah Carrillo MD at 9:52 EST , CC: LUCILA Azul; Dr. Germán Gonzalez DO Cardiac Tech: Signed Normal [facility] Chloride measurementOrdered By: Chiquis Azul on 07-24-2024 Chloride [Moles/Vol] 104 mmol/L 98-107 [facility] Comprehensive Metabolic Prof ilon 07-24-2024 Albumin [Mass/Vol] 3.9 g/dL Normal 3.2-5.0 [facility] Comment on above: Performed By: #### L 500.4050, L100.0100 ####[facility] [address] [place], [address] Albumin/Globulin [Mass ratio] 1.1 {ratio} Normal 0.9-2.4 [facility] Comment on above: Performed By: #### L 500.4050, L100.0100 ####[facility] [address] [place], [address] ALK P 82 U/L Normal 45-117 [facility] Comment on above: Performed By: #### L 500.4050, L100.0100 ####[facility] [address] [place], [address] ALT [Catalytic activity/Vol] 72 U/L High 13-56 [facility] Comment on above: Performed By: #### L 500.4050, L100.0100 ####[facility] [address] [place], [address] AST [Catalytic activity/Vol] 50 U/L High 15-37 [facility] Comment on above: Performed By: #### L 500.4050, L100.0100 ####[facility] [address] [place], [address] Bilirubin [Mass/Vol] 0.40 mg/dL Normal 0.20-1.00 [facility] Comment on above: Result Comment: For patients on eltrombopag therapy, use of Dimension [place] TBIL is not recommended. Performed By: #### L 500.4050, L100.0100 ####[facility] [address] [place], [address] BUN/CRE 20.0 RATIO Normal 10-20 [facility] Comment on above: Performed By: #### L 500.4050, L100.0100 ####[facility] [address] [place], [address] CA,Total 9.3 mg/dL Normal 8.5-10.1 [facility] Comment on above: Performed By: #### L 500.4050, L100.0100 ####[facility] [address] [place], [address] Chloride [Moles/Vol] 104 mmol/L Normal 98-107 [facility] Comment on above: Performed By: #### L 500.4050, L100.0100 ####[facility] [address] [place], [address] CO2 [Moles/Vol] 27.0 mmol/L Normal 21.0-32.0 [facility] Comment on above: Performed By: #### L 500.4050, L100.0100 ####[facility] [address] [place], [address] Creatinine [Mass/Vol] 1.40 mg/dL High 0.55-1.02 [facility] Comment on above: Result Comment: The validity of the calculated GFR GFRAA in patients over 70 years has not been determined. Clinical correlation is essential. Performed By: #### L 500.4050, L100.0100 ####[facility] [address] [place], [address] EST GFR - AA 48 mL/min Low >60 [facility] Comment on above: Result Comment: Afri can Gabonese GFR Calc Performed By: #### L 500.4050, L100.0100 ####[facility] [address] [place], [address] GAP 9 Normal 5-15 [facility] Comment on above: Performed By: #### L 500.4050, L100.0100 ####[facility] [address] [place], [address] GFR/1.73 sq M.predicted among non-blacks MDRD (S/P/Bld) [Vol rate/Area] 39 mL/min/{1.73_m2} Low >60 [facility] Comment on above: Result Comment: Non- GFR Calc Performed By: #### L 500.4050, L100.0100 ####[facility] [address] [place], [address] Globulin (S) [Mass/Vol] 3.5 g/dL Normal 2.2-4.2 [facility] Comment on above: Performed By: #### L 500.4050, L100.0100 ####[facility] [address] [place], [address] Glucose [Mass/Vol] 203 mg/dL High 74-106 [facility] Comment on above: Result Comment: Gluc ose result greater than or equal to 200 mg/dL suggests DIABETES MELLITUS per A.D.A. criteria. Performed By: #### L 500.4050, L100.0100 ####[facility] [address] [place], [address] Potassium [Moles/Vol] 3.8 mmol/L Normal 3.5-5.1 [facility] Comment on above: Performed By: #### L 500.4050, L100.0100 ####[facility] [address] [place], [address] Sodium [Moles/Vol] 140 mmol/L Normal 136-145 [facility] Comment on above: Performed By: #### L 500.4050, L100.0100 ####[facility] [address] [place], [address] T PROT 7.4 g/dL Normal 6.4-8.2 [facility] Comment on above: Performed By: #### L 500.4050, L100.0100 ####[facility] [address] [place], [address] Urea nitrogen [Mass/Vol] 28 mg/dL High 7-18 [facility] Comment on above: Performed By: #### L 500.4050, L100.0100 ####[facility] [address] [place], [address] Eosinophil percentageOrdered By: Chiquis Azul on 07-24-2024 Eosinophils/100 WBC (Bld) 0.0 % 0-5 [facility] Erythrocyte distribution wid th (RBC) [Ratio]Ordered By: Chiquis Azul on 07-24-2024 Erythrocyte distribution width (RBC) [Entitic vol] 42.9 fL 35.1-43.9 [facility] Erythrocyte distribution wid th ratioOrdered By: Chiquis Azul on 07-24-2024 Erythrocyte distribution width (RBC) [Ratio] 12.8 % 11.6-14.6 [facility] Estimated glomerular filtrat ion rate (GFR) AmericanOrdered By: Chiquis Azul on 07-24-2024 Estimated GFR (MDRD) Amer 48 mL/min Low >60 [facility] Comment on above: GFR Calc Glomerular filtration rate ( GFR) estimationOrdered By: Chiquis Azul on 07-24-2024 Estimated GFR (MDRD) Non-Af Amer 39 mL/min Low >60 [facility] Comment on above: Non- GFR Calc Glucose measurementOrdered B y: Chiquis Azul on 07-24-2024 Glucose [Mass/Vol] 203 mg/dL High 74-106 [facility] Comment on above: Glucose result great er than or equal to 200 mg/dLsuggests DIABETES MELLITUS per A.D.A. criteria. Hematocrit Auto (Bld) [Volum e fraction]Ordered By: Chiquis Azul on 07-24-2024 Hematocrit (Bld) [Volume fraction] 43.5 % 37-47 [facility] Hemoglobin measurementOrdere d By: Chiquis Azul on 07-24-2024 Hemoglobin (Bld) [Mass/Vol] 14.1 g/dL 12.0-15.0 [facility] Immature granulocytes/100 WB C Auto (Bld)Ordered By: Chiquis Azul on 07-24-2024 Immature granulocytes/100 WBC (Bld) 0.300 % 0.0-0.9 [facility] Comment on above: IG% - Immature Granu locytes (promyelocytes, myelocytes and metamyelocytes) > 1% indicates that a LEFT SHIFT is Present. Laboratory - Chemistry and C hemistry - challengeOrdered By: Chiquis Azul on 07-24-2024 AST [Catalytic activity/Vol] 50 U/L High 15-37 [facility] Lymphocytes Auto (Unsp spec) [#/Vol]Ordered By: Chiquis Azul on 07-24-2024 Lymphocytes (Bld) [#/Vol] 0.49 10*3/uL Low 0.83-4.51 [facility] Lymphocytes/100 WBC Auto (Un sp spec)Ordered By: Chiquis Azul on 07-24-2024 Lymphocytes/100 WBC (Bld) 13.4 % Low 19-41 [facility] MCV (mean corpuscular volume ) determinationOrdered By: Chiquis Azul on 07-24-2024 MCV (RBC) [Entitic vol] 91.0 fL 81-99 [facility] Mean corpuscular hemoglobin (MCH) determinationOrdered By: Chiquis Azul on 07-24-2024 MCH (RBC) [Entitic mass] 29.5 pg 27.0-32.0 [facility] Mean corpuscular hemoglobin concentration (MCHC) determinationOrdered By: Chiquis Azul on 07-24-2024 MCHC (RBC) [Mass/Vol] 32.4 g/dL 32-36 [facility] Mean platelet volume determi nationOrdered By: Chiquis Azul on 07-24-2024 Platelet mean volume (Bld) [Entitic vol] 8.7 fL 6.2-12.0 [facility] Monocyte percentageOrdered B y: Chiquis Azul on 07-24-2024 Monocytes/100 WBC (Bld) 7.1 % 0-10 [facility] Neutrophil percentageOrdered By: Chiquis Azul on 07-24-2024 Neutrophils/100 WBC (Bld) 78.9 % High 47-70 [facility] Nucleated red blood cell per centageOrdered By: Chiquis Azul on 07-24-2024 Nucleated RBC/100 WBC (Bld) [Ratio] 0 % 0-5 [facility] Platelet countOrdered By: Chris Azul on 07-24-2024 Platelets (Bld) [#/Vol] 218 10*3/uL 150-450 [facility] Potassium measurementOrdered By: Chiquis Azul on 07-24-2024 Potassium [Moles/Vol] 3.8 mmol/L 3.5-5.1 [facility] RBC Auto (Bld) [#/Vol]Ordere d By: Chiquis Azul on 07-24-2024 RBC (Bld) [#/Vol] 4.78 10*6/uL 4.2-5.4 [facility] Serum anion gap measurementO rdered By: Chiquis Azul on 07-24-2024 Anion gap [Moles/Vol] 9 mmol/L 5-15 [facility] Serum globulin measurementOr dered By: Chiquis Azul on 07-24-2024 Globulin (S) [Mass/Vol] 3.5 g/dL 2.2-4.2 [facility] Serum or plasma alanine santos otransferase (ALT) measurementOrdered By: Chiquis Azul on 07-24-2024 ALT [Catalytic activity/Vol] 72 U/L High 13-56 [facility] Serum or plasma albumin javon urement (mass/volume)Ordered By: Chiquis Azul on 07-24-2024 Albumin [Mass/Vol] 3.9 g/dL 3.2-5.0 [facility] Serum or plasma alkaline concepcion sphatase measurementOrdered By: Chiquis Azul on 07-24-2024 ALP [Catalytic activity/Vol] 82 U/L 45-117 [facility] Serum or plasma calcium javon urement (mass/volume)Ordered By: Chiquis Azul on 07-24-2024 Calcium [Mass/Vol] 9.3 mg/dL 8.5-10.1 [facility] Serum or plasma creatinine m easurement (mass/volume)Ordered By: Chiquis Azul on 07-24-2024 Creatinine [Mass/Vol] 1.40 mg/dL High 0.55-1.02 [facility] Comment on above: The validity of the calculated GFR & GFRAA in patients over 70 years has not been determined. Clinical correlation is essential. Serum or plasma urea nitroge n measurement (mass/volume)Ordered By: Chiquis Azul on 07-24-2024 Urea nitrogen [Mass/Vol] 28 mg/dL High 7-18 [facility] Sodium levelOrdered By: Tez moreira Latha on 07-24-2024 Sodium [Moles/Vol] 140 mmol/L 136-145 [facility] Total proteinOrdered By: Myke manuel Latha on 07-24-2024 Protein [Mass/Vol] 7.4 g/dL 6.4-8.2 [facility] White blood cell (WBC) count Ordered By: Chiquis Azul on 07-24-2024 WBC (Bld) [#/Vol] 3.7 10*3/uL Low 4.4-11.0 [facility] Plastic Surgery Visit Report on 07-04-2024 Plastic Surgery Visit Report [facility] Plastic Reconstructive Surgery [address], [address] [place] [address] OFFICE VISIT Date of Service: 07/04/24 MR#: [id number] Acct: [id number] Name: CYNTHIA WALLACE Rep #: [id number] : 1955 Provider: LUCILA peña Age/Sex: 68/F Location: [facility] Status: Signed Intake Vital Signs 3 06/01/24 10:18 06/13/24 09:38 07/04/24 10:01 Height 5 ft 3 in 5 ft 3 in 5 ft 3 in Weight: 206 lb 4 oz BMI 36.5 BP 135/84 H 153/93 H 143/85 H Blood Pressure Location Rt brachial Rt brachial Rt brachial Position Sitting Sitting Sitting Respiration 16 18 18 Pulse 85 70 75 Pulse Source Monitor Monitor Temp 98 F 97.0 F L 97.5 F L Temp Source Oral Oral Pulse Oximetry (%) 96 97 97 Oxygen Delivery Method room air room air room air Intake Visit Reasons: FOLLOW UP Chief Complaint: Follow up lymphedema Is patient in pain?: No Allergies Dressing: Non-Medicated Allergy (Intermediate, Verified 07/04/24 10:02) Rash Medications 3 ???Medication ???Instructions ???Recorded ???Confirmed ???Type cholecalciferol (vitamin D3) 25 25 mcg PO DAILY 05/17/23 07/04/24 History mcg (1,000 unit) capsule multivitamin 1 tab PO DAILY 05/17/23 07/04/24 History pantoprazole 40 mg tablet,delayed 40 mg PO DAILY 05/17/23 07/04/24 History release BALANCE OF NATURE FRUITS 3 tab PO DAILY 07/14/23 07/04/24 History BALANCE OF NATURE VEGETABLES 3 tab PO DAILY 07/14/23 07/04/24 History celecoxib 200 mg capsule (Celebrex) 200 mg PO DAILY 12/22/23 07/04/24 History tamoxifen 20 mg tablet 20 mg PO DAILY #90 tabs 01/24/24 07/04/24 Rx Have you fallen in the past year?: No Nurse's Note: pt here post op , no issues Subjective Details: Patient states that she is doing well. She has not been wearing her compression consistently. She states that she does wear it when she is actively cleaning her house. She states her hand swells because she doesn't wear her hand compression glove because she is not able to clean with it it on. She also has not been consistently wearing her compression at night. She continues to go to [employer] 1-2 times per week to use the equipment to help with her strengthening. She states that her left arm does feel a little less heavy since her surgery. The wound on her left forearm remains healed. Objective Details: Left forearm wound remains healed. Her left arm lymphedema is stable. She has good ROM with her left arm/shoulder. Coding Level of Care Code Global Post Op Diagnoses Lymphedema I89.0 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 Encounter for education Post-menopausal History of edema Abnormal MRI, breast Wears glasses Cancer Arthritis History of hiatal hernia Gastric reflux Non-smoker History of echocardiogram Triple negative breast cancer Abnormal mammogram of left breast Left breast mass Hemorrhoids Abdominal pain Surgical History History of partial mastectomy of both breasts History of lymph node dissection of left axilla History of foot surgery H/O: hysterectomy Total knee replacement status Family History Mother Breast cancer Diabetes Grandmother Breast cancer Sister Breast cancer Father Cancer Prostate and metastatic bone Heart disease Social History Smoking Status: Never smoker alcohol intake: never substance use type: does not use additional social history: pt denies vaping, denies marijuana use, denies edibles, denies aspirin and ibuprofen use Assessment and Plan (No Qualifiers) Assessment and Plan (1) Lymphedema: Status: Acute Plan Patient states that her left arm does feel less heavy than it did before her surgery. She is not consistently wearing her compression. She continues to see OT for her lymphedema. Encouraged her to wear her compression more regularly. Discussed plan of care with Dr. Rod. She will follow up one month with Dr. Rod. 07/04/24 1527 > Date Dee Carr NP [employer]-C Cosigner Signature: Date (if applicable) CC: Normal [facility] Re-Evalution OTon 07-04-2024 Re-Evalution OT [facility] Occupational Therapy [facility] [place] [address] / REEVALUATION / MEDICARE RECERTIFICATION OCCUPATIONAL THERAPY MR#: [id number] Acct: [id number] Name: CYNTHIA WALLACE Rep #: [id number] : 1955 68 From: Myesha Johnson OTEric/Precious, CHT Referring Dr.: Dr. Blu Kraus MD Status: REG RCR Insurance: MEDICARE PART A B Eval Date: [facility] Re-Evaluation Intro: Dr. Blu Kraus MD, It has been my pleasure to treat CYNTHIA WALLACE over the last 1 visits for right UE lymphedema. Please see the progress note below for an update on the occupational therapy plan of care! Subjective Subjective: pt arrives to OT after 14 weeks of 2 days OT conservative therapy: dx of left UE lymphedema ( I89.0) due to dx of breast cancer following lumpectomy with radiation. - pt has compression glove and sleeve but still gets swelling with all activity. Objective Objective/Function: wound on left forearm has closed skin is taunt unable to pinch skin on dorsum of hand at this time left MCP 19cm left wrist 15cm left Lower forearm 20 left upper 26cm left elbow 26cm left humerus 30cm left axillary 34cm Despite 4 weeks of limb compression, exercise and elevation symptoms of heaviness and welling persist. pt continues to have swelling despite 14 weeks of conservative therapy- elevation, manual lymph massage- compression garment. pt would benefit from home flexitouch unit with chest/trunk added do to concerns of breast swelling- pt to also get compression bra to assist with recent onset of breast swelling. Plan Plan Frequency: 1-2x /Week Duration: 4 Weeks Plan: compression sleeve - compression wrap- exercise get pt compression pump for home mtg of life long lymphedema flexitouch with chest/trunk addition due to risk of trunk/breast swelling Goals Goals Goal: Patient will demonstrate a 20% reduction in edema by discharge: Yes Goal: Patient will demonstrate adequate knowledge of self-bandaging by the end of the first week.: Yes Goal: Patient will demonstrate adequate knowledge of skin care and precautions by the end of the first week.: Yes Goal: Patient will demonstrate adequate knowledge of therapeutic exercises by discharge.: Yes Goal: Patient will select an appropriate compression garment and demonstrate adequate knowledge of correct donning technique, care and wearing schedule by discharge.: Yes Goal: Patient will voice understanding of need to replace compression garment every four to six months by discharge.: Yes Patient Goals: Learn how to Manage Lymphedema and Learn how to Apply Compression Stockings Anticipated Interventions Anticipated Interventions Anticipated Interventions: Education re assistive Equipment, Education re Diagnosis, Manual Lymph Drainage, Education re Life-long lymphedema Management, Education re Self-Bandaging Techniques, Education re Skin Care and Precautions, Education re Self Massage Techniques, Education re Correct Donning Tech,Care Wearing Sched Comp Garments, Caregiver Training and Home Program Other Interventions: pt may benefit from compression pump Re-Evaluation Ending Re-evaluation ending: Please do not hesitate to contact me at [phone] by phone or if you have questions or concerns regarding this new plan of care! Sincerely, BRADEN Loomis/Precious, CHT 07/04/24 1357 CC: LUCILA Azul; Dr. Blu Kraus MD MK Signed For Medicare only, by signing this I certify the plan of care. Physicians Signature Date Normal [facility] Re-Evalution OTon 06-20-2024 Re-Evalution OT [facility] Occup[facility] [address] [place] [address] / REEVALUATION / MEDICARE RECERTIFICATION OCCUPATIONAL THERAPY MR#: [id number] Acct: [id number] Name: CYNTHIA WALLACE Rep #: [id number] : 1955 68 From: Myesha FELICIANO/Precious, CHT Referring Dr.: Dr. Blu Kraus MD Status: REG RCR Insurance: MEDICARE PART A B Eval Date: [place] Re-Evaluation Intro: Dr. Blu Kraus MD, It has been my pleasure to treat CYNTHIA WALLACE over the last 16 visits for right UE lymphedema. Please see the progress note below for an update on the occupational therapy plan of care! Subjective Subjective: pt arrives to OT after 12 weeks of OT conservative therapy: dx of lymphedema ( I89.0) due to dx of breast cancer following lumpectomy with radiation. - pt has compression glove and sleeve but still gets swelling with all activity. pt frustrated as she is using compression sleeve 20-30 mmHg and glove- but not able to consistently decrease swelling. Objective Objective/Function: wound is healed left MCP 19cm left wrist 15cm left Lower forearm 20 left upper 26cm elbow 26cm hum 30cm axillary 34cm Despite 4 weeks of limb compression, exercise and elevation symptoms of heaviness and welling persist. pt continues to have swelling despite 12 weeks of conservative therapy- elevation, manual lymph massage- compression garment. pt would benefit from home flexitouch unit with chest/trunk added do to continuation of breast swelling. . Plan Plan Plan: compression sleeve - compression wrap- exercise get pt compression pump for home mtg of life long lymphedema flexitouch with chest/trunk addition due to risk of trunk swelling Goals Goals Goal: Patient will demonstrate a 20% reduction in edema by discharge: Yes Goal: Patient will demonstrate adequate knowledge of self-bandaging by the end of the first week.: Yes Goal: Patient will demonstrate adequate knowledge of skin care and precautions by the end of the first week.: Yes Goal: Patient will demonstrate adequate knowledge of therapeutic exercises by discharge.: Yes Goal: Patient will select an appropriate compression garment and demonstrate adequate knowledge of correct donning technique, care and wearing schedule by discharge.: Yes Goal: Patient will voice understanding of need to replace compression garment every four to six months by discharge.: Yes Patient Goals: Learn how to Manage Lymphedema and Learn how to Apply Compression Stockings Anticipated Interventions Anticipated Interventions Anticipated Interventions: Education re assistive Equipment, Education re Diagnosis, Manual Lymph Drainage, Education re Life-long lymphedema Management, Education re Self-Bandaging Techniques, Education re Skin Care and Precautions, Education re Self Massage Techniques, Education re Correct Donning Tech,Care Wearing Sched Comp Garments, Caregiver Training and Home Program Other Interventions: pt may benefit from compression pump Re-Evaluation Ending Re-evaluation ending: Please do not hesitate to contact me at [phone] by phone or if you have questions or concerns regarding this new plan of care! Sincerely, Myesha Johnson, OTR/L, CHT 06/20/24 1310 CC: LUCILA Azul; Dr. Blu Kraus MD MK Signed For Medicare only, by signing this I certify the plan of care. Physicians Signature Date Normal [facility] Re-Evalution OT [facility] Occup[facility] [address] [place] [address] / REEVALUATION / MEDICARE RECERTIFICATION OCCUPATIONAL THERAPY MR#: [id number] Acct: [id number] Name: CYNTHIA WALLACE Rep #: [id number] : 1955 68 From: Myesha Johnson OTR/L, CHT Referring Dr.: Dr. Blu Kraus MD Status: REG RCR Insurance: MEDICARE PART A B Eval Date: [place] Re-Evaluation Intro: Dr. Blu Kraus MD, It has been my pleasure to treat CYNTHIA WALLACE over the last 16 visits for right UE lymphedema. Please see the progress note below for an update on the occupational therapy plan of care! Subjective Subjective: pt arrives to OT after 12 weeks of conservative therapy- pt has compression glove and sleeve but still gets swelling with all activity. pt frustrated as she is using compression sleeve 20-30 mmHg and glove- but not able to consistently decrease swelling. Objective Objective/Function: wound is healed left MCP 19cm left wrist 15cm left Lower forearm 20 left upper 26cm elbow 26cm hum 30cm axillary 34cm pt continues to have swelling despite 12 weeks of conservative therapy- elevation, manual lymph massage- compression garment. Plan Plan Frequency: 1-2x /Week Duration: 4 Weeks Plan: compression sleeve get pt compression pump for home mtg of life long lymphedema flexitouch with chest/trunk addition due to risk of trunk swelling Goals Goals Goal: Patient will demonstrate a 20% reduction in edema by discharge: Yes Goal: Patient will demonstrate adequate knowledge of self-bandaging by the end of the first week.: Yes Goal: Patient will demonstrate adequate knowledge of skin care and precautions by the end of the first week.: Yes Goal: Patient will demonstrate adequate knowledge of therapeutic exercises by discharge.: Yes Goal: Patient will select an appropriate compression garment and demonstrate adequate knowledge of correct donning technique, care and wearing schedule by discharge.: Yes Goal: Patient will voice understanding of need to replace compression garment every four to six months by discharge.: Yes Patient Goals: Learn how to Manage Lymphedema and Learn how to Apply Compression Stockings Anticipated Interventions Anticipated Interventions Anticipated Interventions: Education re assistive Equipment, Education re Diagnosis, Manual Lymph Drainage, Education re Life-long lymphedema Management, Education re Self-Bandaging Techniques, Education re Skin Care and Precautions, Education re Self Massage Techniques, Education re Correct Donning Tech,Care Wearing Sched Comp Garments, Caregiver Training and Home Program Other Interventions: pt may benefit from compression pump Re-Evaluation Ending Re-evaluation ending: Please do not hesitate to contact me at [phone] by phone or if you have questions or concerns regarding this new plan of care! Sincerely, Myesha Johnson, SUZYR/L, CHT 06/20/24 1121 CC: LUCILA Azul; Dr. Blu Kraus MD MK Signed For Medicare only, by signing this I certify the plan of care. Physicians Signature Date [facility] Radiation Oncology Visiton 1 08-14-2023 Radiation Oncology Visit [facility] [address] [place] [address] OFFICE VISIT Date of Service: 06/13/24 0934 MR#: [id number] Acct: [id number] Name: RODRIGOCYNTHIA J Rep #: [id number] : 1955 From: Germán Gonzalez DO Age/Sex: 68/F [place] [facility] Status: Signed Intake Vital Signs 01/24/24 14:35 05/18/24 10:05 06/01/24 10:18 06/13/24 09:38 Height 5 ft 3 in 5 ft 3 in 5 ft 3 in 5 ft 3 in Weight: 206 lb 4 oz BMI 36.5 BP 153/93 H Blood Pressure Location Rt brachial Position Sitting Respiration 18 Pulse 70 Pulse Source Monitor Temp 97.0 F L Temperature Source Temporal Artery Pulse Oximetry (%) 97 Oxygen Delivery Method room air Intake Visit Reasons: 4 MONTH F/U BREAST Is patient in pain?: No Allergies Dressing: Non-Medicated Allergy (Intermediate, Verified 06/13/24 09:36) Rash Medications ???Medication ???Instructions ???Recorded ???Confirmed ???Type cholecalciferol (vitamin D3) 25 25 mcg PO DAILY 05/17/23 06/13/24 History mcg (1,000 unit) capsule multivitamin 1 tab PO DAILY 05/17/23 06/13/24 History pantoprazole 40 mg tablet,delayed 40 mg PO DAILY 05/17/23 06/13/24 History release BALANCE OF NATURE FRUITS 3 tab PO DAILY 07/14/23 06/13/24 History BALANCE OF NATURE VEGETABLES 3 tab PO DAILY 07/14/23 06/13/24 History celecoxib 200 mg capsule (Celebrex) 200 mg PO DAILY 12/22/23 06/13/24 History tamoxifen 20 mg tablet 20 mg PO DAILY #90 tabs 01/24/24 06/13/24 Rx Have you fallen in the past year?: No PFSH PFSH Medical History Anemia Cough Constipation 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 Encounter for education Post-menopausal History of edema Abnormal MRI, breast Wears glasses Cancer Arthritis History of hiatal hernia Gastric reflux Non-smoker History of echocardiogram Triple negative breast cancer Abnormal mammogram of left breast Left breast mass Hemorrhoids Abdominal pain Home Medications ???Medication ???Instructions ???Recorded ???Last Taken ???Type cholecalciferol (vitamin D3) 25 25 mcg PO DAILY 05/17/23 08/15/23 History mcg (1,000 unit) capsule multivitamin 1 tab PO DAILY 05/17/23 03/08/24 History pantoprazole 40 mg tablet,delayed 40 mg PO DAILY 05/17/23 03/08/24 History release BALANCE OF NATURE FRUITS 3 tab PO DAILY 07/14/23 08/15/23 History BALANCE OF NATURE VEGETABLES 3 tab PO DAILY 07/14/23 08/15/23 History celecoxib 200 mg capsule (Celebrex) 200 mg PO DAILY 12/22/23 Unknown History tamoxifen 20 mg tablet 20 mg PO DAILY #90 tabs 01/24/24 Unknown Rx Allergy/AdvReac Type Severity Reaction Status Date / Time Dressing: Non-Medicated Allergy Intermediate Rash Verified 06/13/24 09:36 Family History Mother Breast cancer Diabetes Grandmother Breast cancer Sister Breast cancer Father Cancer Prostate and metastatic bone Heart disease Surgical History History of partial mastectomy of both breasts History of lymph node dissection of left axilla History of foot surgery H/O: hysterectomy Total knee replacement status Social History Smoking Status: Never smoker alcohol intake: never substance use type: does not use additional social history: pt denies vaping, denies marijuana use, denies edibles, denies aspirin and ibuprofen use Diagnosis: Cynthia Wallace is a 68 year-old female diagnosed with pathologic stage IIIA (pT1c pN2a M0) grade 2 invasive ductal carcinoma (ER 0%, SC 0%, HER2 0+ IHC) of the left breast and pathologic stage 0 (pTis pN0 (sn) M0) grade 1 DCIS (ER > 95%, SC > 95%, HER2 0+ IHC) of the right breast status post bilateral screening mammography (04/22/2023), left breast ultrasound (04/26/2023), left breast stereotactic core biopsy (05/05/2023), bilateral breast MRI (06/07/2023), right breast ultrasound (06/18/2023), right breast core biopsy (06/29/2023), bilateral partial mastectomy with bilateral axillary sentinel lymph node and left axillary dissection (07/22/2023), CT chest/abdomen/pelvis with contrast (07/30/2023), completion of adjuvant chemotherapy (From 08/19/2023 ??? 10/21/2023). From 11/29/2023 ??? 12/28/2023 she completed adjuvant radiation to the left breast and regional lymph nodes as well as adjuvant APBI to the right breast.??? History of Present Illness: 05/04/2022: Patient completed ultrasound-guided biopsy of the left breast.??? This demonstrated mild duct ectasia, no evidence of malignancy. 04/22/2023: Bilateral screening mammography was performed.??? This demonstrated increase in size of a nodular density seen in the deep slightly lateral aspect of the left breast measuring about 7.7 x 3.9 mm.??? (more content not included)... [facility] Plastic Surgery Visit Report on 06-01-2024 Plastic Surgery Visit Report [facility] Plastic Reconstructive Surgery [address], [address] [place], [place] [address] OFFICE VISIT Date of Service: 06/01/24 MR#: [id number] Acct: [id number] Name: CYNTHIA WALLACE Rep #: [id number] : 1955 Provider: LUCILA peña Age/Sex: 68/F [place] [facility] Status: Signed Intake Vital Signs 3 05/18/24 10:05 06/01/24 10:18 Height 5 ft 3 in 5 ft 3 in BP 154/85 H 135/84 H Blood Pressure Location Rt brachial Rt brachial Position Sitting Sitting Respiration 16 16 Pulse 73 85 Pulse Source Monitor Temp 98.4 F 98 F Temp Source Temporal Oral Pulse Oximetry (%) 95 96 Oxygen Delivery Method room air room air Intake Visit Reasons: 2 W F/U Chief Complaint: Follow up lymphedema Is patient in pain?: No Allergies Dressing: Non-Medicated Allergy (Intermediate, Verified 06/01/24 10:17) Rash Medications 3 ???Medication ???Instructions ???Recorded ???Confirmed ???Type cholecalciferol (vitamin D3) 25 25 mcg PO DAILY 05/17/23 06/01/24 History mcg (1,000 unit) capsule multivitamin 1 tab PO DAILY 05/17/23 06/01/24 History pantoprazole 40 mg tablet,delayed 40 mg PO DAILY 05/17/23 06/01/24 History release BALANCE OF NATURE FRUITS 3 tab PO DAILY 07/14/23 06/01/24 History BALANCE OF NATURE VEGETABLES 3 tab PO DAILY 07/14/23 06/01/24 History celecoxib 200 mg capsule (Celebrex) 200 mg PO DAILY 12/22/23 06/01/24 History tamoxifen 20 mg tablet 20 mg PO DAILY #90 tabs 01/24/24 06/01/24 Rx doxycycline hyclate 100 mg tablet 100 mg PO BID #10 tabs 11/19/24 12/05/24 Rx Have you fallen in the past year?: No Nurse's Note: Follow up lymphedema PFSH Medical History Anemia Cough Constipation 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 Encounter for education Post-menopausal History of edema Abnormal MRI, breast Wears glasses Cancer Arthritis History of hiatal hernia Gastric reflux Non-smoker History of echocardiogram Triple negative breast cancer Abnormal mammogram of left breast Left breast mass Hemorrhoids Abdominal pain Surgical History History of partial mastectomy of both breasts History of lymph node dissection of left axilla History of foot surgery H/O: hysterectomy Total knee replacement status Family History Mother Breast cancer Diabetes Grandmother Breast cancer Sister Breast cancer Father Cancer Prostate and metastatic bone Heart disease Social History Smoking Status: Never smoker alcohol intake: never substance use type: does not use additional social history: pt denies vaping, denies marijuana use, denies edibles, denies aspirin and ibuprofen use HPI 2 W F/U Details: She states that her left forearm wound is healed and is no longer painful. She states that her arm feels less heavy. She has not been wearing her compression consistently. She has noticed that her hand swells when she wears her compression sleeve. She does not always wear the hand compression at the same time. She states that the occupational therapist recommended that she wear compression at least at night if she is not going to wear it during the day. If the sleeve is too tight, then she should use wraps for the compression. She completed OT. She has been going to [employer] on Tuesdays to use the machines to help with upper body ROM and strengthening. Exam Details Left forearm wound is healed. She has improved ROM. The overall swelling of her left upper arm is stable. Coding Level of Care Code Global Post Op Diagnoses Lymphedema I89.0 Non-healing surgical wound T81.89XA Assessment and Plan (No Qualifiers) Assessment and Plan (1) Lymphedema: Status: Acute (2) Non-healing surgical wound: Status: Acute Comment: left dorsal forearm Plan Patient states that her arm feels less heavy and is not as swollen. She has not been wearing the compression consistently. Stressed to her that compression is essential to helping prevent swelling. She states OT suggested that she at least wear compression at night if she is not going to wear it during the day. She has completed OT. She has been exercising at [facility] to help with her ROM. Discussed her plan of care with Dr. Rod. She will follow up in one month. She will call or come in sooner if she develops any concerns. Clinical Quality Measures Falls Risk Screening/Assistive Devices Have you fallen in the past year?: No 06/01/24 1725 > Date Dee Carr NP, NP-C Panchoigner Signature: Date (more content not included)... [facility] Re-Evalution OTon 05-31-2024 Re-Evalution OT [facility] Occupational Therapy [address] [place] [address] / REEVALUATION / MEDICARE RECERTIFICATION OCCUPATIONAL THERAPY MR#: [id number] Acct: [id number] Name: CYNTHIA WALLACE Rep #: [id number] : 1955 68 From: Myesha Johnson OTR/L, CHT Referring Dr.: Dr. Blu Kraus MD Status: REG RCR Insurance: MEDICARE PART A B Evil Date: [place] Re-Evaluation Intro: Dr. Blu Kraus MD, It has been my pleasure to treat CYNTHIA WALLACE over the last 14 visits for right UE lymphedema. Please see the progress note below for an update on the occupational therapy plan of care! Subjective Subjective: pt arrives states she is doing better- still struggling with swelling below elbow- pt feels she struggles with mtg her swelling. Objective Objective/Function: wound is healing - looks great left MCP 19cm left wrist 15cm left Lower forearm 20 left upper 26cm elbow 26cm hum 30cm axillary 34cm pt continues to struggle with mtg .of let UE lymphedema with elevation, lymph stimulation exercise and self manual lymph massage. Due to continued symptoms of swelling and feelings of fullness of left UE. pt would benefit from use of a home lymphedema pump to assist with her lymphedema mtg. It agrees to this POC. Plan Plan Duration: 4 Weeks Plan: compression sleeve get pt compression pump for home mtg of life long lymphedema Goals Goals Goal: Patient will demonstrate a 20% reduction in edema by discharge: Yes Goal: Patient will demonstrate adequate knowledge of self-bandaging by the end of the first week.: Yes Goal: Patient will demonstrate adequate knowledge of skin care and precautions by the end of the first week.: Yes Goal: Patient will demonstrate adequate knowledge of therapeutic exercises by discharge.: Yes Goal: Patient will select an appropriate compression garment and demonstrate adequate knowledge of correct donning technique, care and wearing schedule by discharge.: Yes Goal: Patient will voice understanding of need to replace compression garment every four to six months by discharge.: Yes Patient Goals: Learn how to Manage Lymphedema and Learn how to Apply Compression Stockings Anticipated Interventions Anticipated Interventions Anticipated Interventions: Education re assistive Equipment, Education re Diagnosis, Manual Lymph Drainage, Education re Life-long lymphedema Management, Education re Self-Bandaging Techniques, Education re Skin Care and Precautions, Education re Self Massage Techniques, Education re Correct Donning Tech,Care Wearing Sched Comp Garments, Caregiver Training and Home Program Other Interventions: pt may benefit from compression pump Re-Evaluation Ending Re-evaluation ending: Please do not hesitate to contact me at [phone] by phone or if you have questions or concerns regarding this new plan of care! Sincerely, Myesha Johnson OTR/L, CHT 05/31/24 7981 CC: LUCILA Azul; Dr. Blu Kraus MD MK Signed For Medicare only, by signing this I certify the plan of care. Physicians Signature Date [facility] Plastic Surgery Visit Report on 05-18-2024 Plastic Surgery Visit Report [facility] Plastic Reconstructive Surgery [address], [address] [place] [address] OFFICE VISIT Date of Service: 05/18/24 MR#: [id number] Acct: [id number] Name: CYNTHIA WALLACE Rep #: [id number] : 1955 Provider: LUCILA peña Age/Sex: 68/F [place] [facility] Status: Signed I have personally performed a face to face assessment of the patient and have reviewed the JOHN Note. Intake Vital Signs 3 05/11/24 10:54 05/18/24 10:05 Height 5 ft 3 in 5 ft 3 in BP 127/83 H 154/85 H Blood Pressure Location Lt brachial Rt brachial Position Sitting Sitting Respiration 16 16 Pulse 73 73 Pulse Source Monitor Temp 98.1 F 98.4 F Temp Source Oral Temporal Pulse Oximetry (%) 98 95 Oxygen Delivery Method room air room air Intake Visit Reasons: 1 W F/U Chief Complaint: follow up Is patient in pain?: No Allergies Dressing: Non-Medicated Allergy (Intermediate, Verified 05/18/24 10:06) Rash Medications 3 ???Medication ???Instructions ???Recorded ???Confirmed ???Type cholecalciferol (vitamin D3) 25 25 mcg PO DAILY 05/17/23 05/18/24 History mcg (1,000 unit) capsule multivitamin 1 tab PO DAILY 05/17/23 05/18/24 History pantoprazole 40 mg tablet,delayed 40 mg PO DAILY 05/17/23 05/18/24 History release BALANCE OF NATURE FRUITS 3 tab PO DAILY 07/14/23 05/18/24 History BALANCE OF NATURE VEGETABLES 3 tab PO DAILY 07/14/23 05/18/24 History celecoxib 200 mg capsule (Celebrex) 200 mg PO DAILY 12/22/23 05/18/24 History tamoxifen 20 mg tablet 20 mg PO DAILY #90 tabs 01/24/24 05/18/24 Rx doxycycline hyclate 100 mg tablet 100 mg PO BID #10 tabs 05/16/24 05/18/24 Rx metronidazole 500 mg tablet 500 mg PO TID 10 days #30 tabs 05/18/24 05/18/24 Rx nystatin 100,000 unit/gram topical 1 applic topical BID 14 days #60 05/18/24 05/18/24 Rx powder grams Have you fallen in the past year?: No Nurse's Note: pt here for follow up, c/o nausea due to medication last prescribed Subjective Details: She states that her left forearm wound is less painful. It is smaller in size. She stopped using the silver alginate because it has scabbed over. She states that her arm feels less heavy. She has not been wearing her compression consistently. She is still going to OT for strengthening and management of her lymphedema. She is complaining of a moist, itchy rash in her bilateral groins that she experiences on and off since she had her radiation therapy for her anal cancer years ago. She states that it flared up over the past week and she is very uncomfortable with it. Objective Details: Left forearm wound is dry and intact. There is a dry scab present. It is measuring smaller at 0.8 x 0.3 cm. Removed as much as the scab as she would tolerate. It measures smaller at 1 x 0.4 cm. Placed antibiotic ointment and a band aid over the dry scab. Her arm swelling is stable. She is not consistently wearing compression. 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 Encounter for education Post-menopausal History of edema Abnormal MRI, breast Wears glasses Cancer Arthritis History of hiatal hernia Gastric reflux Non-smoker History of echocardiogram Triple negative breast cancer Abnormal mammogram of left breast Left breast mass Hemorrhoids Abdominal pain Surgical History History of partial mastectomy of both breasts History of lymph node dissection of left axilla History of foot surgery H/O: hysterectomy Total knee replacement status Family History Mother Breast cancer Diabetes Grandmother Breast cancer Sister Breast cancer Father Cancer Prostate and metastatic bone Heart disease Social History Smoking Status: Never smoker alcohol intake: never substance use type: does not use additional social history: pt denies vaping, denies marijuana use, denies edibles, denies aspirin and ibuprofen use Assessment and Plan (No Qualifiers) Assessment and Plan (1) Lymphedema: Status: Acute (2) Non-healing surgical wound: Status: Acute Comment: left dorsal forearm Plan Wound care will be antibiotic ointment covered with gauze or a band aid. She is to wash the area with soap and water at night. Patient states that her arm feels less heavy and is not as swollen. Per OT she is to wear compression garment during the day and take it off at bedtime. She has not been wearing the compression c (more content not included)... [facility] Culture, Anaerobic Any Sourc bruce 05-17-2024 CUAN List Antibiotics Las t 48 Hours? none List Antibiotics to be Started? none Fannyhessea vaginae [facility] Comment on above: Performed By: #### M 100.4001, M100.1999, M100.3000 ####[facility] [address] [place], [address] Wound Cultureon 05-14-2024 List Antibiotics Las t 48 Hours? none List Antibiotics to be Started? none Clinical correlation necessary, Possible skin contamination. Staphylococcus epidermidis Amount Growth Rare Staphylococcus epidermidis: REACTION cefOXitin Susc Islt Doxycycline Islt COLBY 4 S Clindamycin Islt COLBY 0.25 S Clindamycin.induced Susc Islt NEG Erythromycin Islt COLBY >=8 R Gentamicin Islt COLBY <=0.5 S Linezolid Islt COLBY 1 S Oxacillin Susc Islt >=4 R Tetracycline Islt COLBY >=16 R TMP SMX Islt COLBY <=10 S Vancomycin Islt COLBY 1 S [facility] Comment on above: Performed By: #### M 100.4001, M100.1999, M100.3000 ####[facility] [address] [place], [address] Gram Stainon 05-12-2024 GS List Antibiotics Las t 48 Hours? none List Antibiotics to be Started? none Gram Stain 4+ Red Blood Cells No Epithelial cells No organisms seen [facility] Comment on above: Performed By: #### M 100.4001, M100.1999, M100.3000 ####[facility] [address] [place], [address] Plastic Surgery Visit Report on 05-11-2024 Plastic Surgery Visit Report [facility] Plastic Reconstructive Surgery [address] [place] [address] OFFICE VISIT Date of Service: 05/11/24 MR#: [id number] Acct: [id number] Name: CYNTHIA WALLACE Rep #: [id number] : 1955 Provider: LUCILA peña Age/Sex: 68/F Location: [facility] Status: Signed I have personally performed a face to face assessment of the patient and have reviewed the JOHN Note. Intake Vital Signs 04/27/24 10:26 05/11/24 10:54 Height 5 ft 3 in 5 ft 3 in BP 145/84 H 127/83 H Blood Pressure Location Rt brachial Lt brachial Position Sitting Sitting Respiration 16 16 Pulse 71 73 Pulse Source Monitor Temp 98.0 F 98.1 F Temp Source Oral Oral Pulse Oximetry (%) 97 98 Oxygen Delivery Method room air room air Intake Visit Reasons: 2 W FU Chief Complaint: follow up Accompanied by: Self Allergies Dressing: Non-Medicated Allergy (Intermediate, Verified 04/27/24 10:27) Rash Medications ???Medication ???Instructions ???Recorded ???Confirmed ???Type cholecalciferol (vitamin D3) 25 25 mcg PO DAILY 05/17/23 05/11/24 History mcg (1,000 unit) capsule multivitamin 1 tab PO DAILY 05/17/23 05/11/24 History pantoprazole 40 mg tablet,delayed 40 mg PO DAILY 05/17/23 05/11/24 History release BALANCE OF NATURE FRUITS 3 tab PO DAILY 07/14/23 05/11/24 History BALANCE OF NATURE VEGETABLES 3 tab PO DAILY 07/14/23 05/11/24 History celecoxib 200 mg capsule (Celebrex) 200 mg PO DAILY 12/22/23 05/11/24 History tamoxifen 20 mg tablet 20 mg PO DAILY #90 tabs 01/24/24 05/11/24 Rx Have you fallen in the past year?: No PFSH Medical History Anemia Cough Constipation 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 Encounter for education Post-menopausal History of edema Abnormal MRI, breast Wears glasses Cancer Arthritis History of hiatal hernia Gastric reflux Non-smoker History of echocardiogram Triple negative breast cancer Abnormal mammogram of left breast Left breast mass Hemorrhoids Abdominal pain Surgical History History of partial mastectomy of both breasts History of lymph node dissection of left axilla History of foot surgery H/O: hysterectomy Total knee replacement status Family History Mother Breast cancer Diabetes Grandmother Breast cancer Sister Breast cancer Father Cancer Prostate and metastatic bone Heart disease Social History Smoking Status: Never smoker alcohol intake: never substance use type: does not use additional social history: pt denies vaping, denies marijuana use, denies edibles, denies aspirin and ibuprofen use HPI 2 W FU Details: Patient is doing well. She states that her left arm feels less heavy since her procedure. She feels like there is less swelling. She is only wearing her compression when she is active (ie cleaning or using her arms a lot). She still has a wound on her left forearm that she states is still very painful. She states that she stopped using silvadene cream because it was too moist. Exam Details Left forearm incisions are all healed. Left dorsal forearm wound is measuring smaller at 1.2 x 0.4 x 0.2 cm (after debridement). It is clean and beefy pink with small amount of fat necrosis in the center. It continues to be very painful. She is not able to lift her left arm over her head as high as she lifts her right arm. She is working with PT to help with her ROM. After using Cetacaine spray for anesthesia, I used a #3 curette and sharply debrided the wound down into the subcutaneous tissue as an excisional debridement. Some of the subcutaneous tissue was removed with excisional debridement. Good bleeding was seen in the subcutaneous tissue after the excision debridement. In addition to the subcutaneous tissue, I also debrided some senescent cells, some increased bioburden, and some devitalized tissue. Patient tolerated the procedure well. Hemostasis was obtained with gentle pressure. The wound was redressed with Silver dressing. Coding Level of Care Code Global Post Op Diagnoses Lymphedema I89.0 Non-healing surgical wound T81.89XA Assessment and Plan (No Qualifiers) Assessment and Plan (1) Lymphedema: Status: Acute (2) Non-healing surgical wound: Status: Acute Comment: left dorsal forearm Plan Wound care will be Aquacel-Ag covered with gauze or a band aid. She is to wash the area with soap and water at night. Patient states that her arm feels less heavy and is not as swollen. Per OT she is to wear compression garment during the day and take it off at bedtime. She has not been wearing the c (more content not included)... Normal [facility] Plastic Surgery Visit Report on 04-27-2024 Plastic Surgery Visit Report [facility] Plastic Reconstructive Surgery [address], [address] [place] [address] OFFICE VISIT Date of Service: 04/27/24 MR#: [id number] Acct: [id number] Name: RODRIGOCYNTHIA J Rep #: [id number] : 1955 Provider: LUCILA peña Age/Sex: 68/F [place] [facility] [place] Status: Signed Pt seen evaluated w/JOHN. I personally interviewed exam the pt. I was involved in all aspects of pt's orders, interpretation of results treatment Intake Vital Signs 04/20/24 10:49 04/27/24 10:26 Height 5 ft 3 in 5 ft 3 in BP 146/86 H 145/84 H Blood Pressure Location Rt brachial Rt brachial Position Sitting Sitting Respiration 16 16 Pulse 58 L 71 Temp 97.8 F 98.0 F Temp Source Oral Oral Pulse Oximetry (%) 96 97 Oxygen Delivery Method room air room air Intake Visit Reasons: 1 W FU Chief Complaint: follow up Is patient in pain?: No Allergies Dressing: Non-Medicated Allergy (Intermediate, Verified 04/27/24 10:27) Rash Have you fallen in the past year?: No Nurse's Note: pt here for follow up/wound care Subjective Details: Patient is doing well. She states that her left arm feels less heavy since her procedure. She feels like there is less swelling. She has been consistently wearing her compression garment during the day but takes it off at night. She states OT said that was OK. She still has a painful wound on her left forearm that she has been using silvadene dressing changes daily to. Objective Details: Left forearm incisions are all healed. Left dorsal forearm wound is smaller. 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 It measures 2.5 x 1.5 cm. It is clean and beefy pink with small amount of fat necrosis in the center. It is painful to palpation (she states that OT cleaned it well 2 days ago and the discomfort is just now starting to improve, therefore, we will not debride in the office today). Continue the Silvadene cream topped with gauze or ABD or silicone border dressing. She is having weakness in her left arm since she has not been using it for lifting as much since her surgery. She is having a hard time holding arm up for any length of time (less than a minute for photos). 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 Encounter for education Post-menopausal History of edema Abnormal MRI, breast Wears glasses Cancer Arthritis History of hiatal hernia Gastric reflux Non-smoker History of echocardiogram Triple negative breast cancer Abnormal mammogram of left breast Left breast mass Hemorrhoids Abdominal pain Surgical History History of partial mastectomy of both breasts History of lymph node dissection of left axilla History of foot surgery H/O: hysterectomy Total knee replacement status Family History Mother Breast cancer Diabetes Grandmother Breast cancer Sister Breast cancer Father Cancer Prostate and metastatic bone Heart disease Social History Smoking Status: Never smoker alcohol intake: never substance use type: does not use additional social history: pt denies vaping, denies marijuana use, denies edibles, denies aspirin and ibuprofen use Assessment and Plan (No Qualifiers) Assessment and Plan (1) Lymphedema: Status: Acute (2) Non-healing surgical wound: Status: Acute Comment: left dorsal forearm Plan The wound over the dorsal incision, she will place a THIN layer of Silvadene cream twice daily to this area and cover with gauze. She is to wash it gently with soap and water daily at the time of one of the dressing changes. Stressed importance of keeping this area covered at all times except when showering or changing dressing. She may stop her blood thinner. Patient states that her arm feels less heavy and is not as swollen. Per OT she is to wear compression garment during the day and take it off at bedtime. She no longer has lifting restrictions. Discussed starting small with 1-2 lb weights (or use a can of vegetable) to help with strengthening. Dr. Rod in to see and evaluate patient and discuss her plan of care. She will follow up in 2 weeks with us. She will continue seeing OT weekly. Instructed to call us if she develops any concerns. 04/27/24 1201 > Date Dee Carr NP CRUSHER FOREMAN-C 04/28/24 1720 Cosigner Signature: Date (more content not included)... Normal [facility] Plastic Surgery Visit Report on 04-20-2024 Plastic Surgery Visit Report [facility] Plastic Reconstructive Surgery [address], [address] [place] [address] OFFICE VISIT Date of Service: 04/20/24 MR#: [id number] Acct: [id number] Name: CYNTHIA WALLACE Rep #: [id number] : 1955 Provider: LUCILA peña Age/Sex: 68/F [place] [facility] [place] Status: Signed Pt seen evaluated w/JOHN. I personally interviewed exam the pt. I was involved in all aspects of pt's orders, interpretation of results treatment Intake Vital Signs 04/06/24 13:08 04/17/24 11:32 04/20/24 10:49 Height 5 ft 3 in 5 ft 3 in 5 ft 3 in Weight: 207 lb 4 oz BMI 36.7 BP 143/77 H 146/86 H Blood Pressure Location Rt brachial Rt brachial Position Sitting Sitting Respiration 18 16 Pulse 67 58 L Pulse Source Monitor Temp 97 F L 97.8 F Temp Source Oral Pulse Oximetry (%) 97 96 Oxygen Delivery Method room air room air Intake Visit Reasons: 2 W FU Chief Complaint: follow up Is patient in pain?: No Allergies Dressing: Non-Medicated Allergy (Intermediate, Verified 04/20/24 10:50) Rash Medications ???Medication ???Instructions ???Recorded ???Confirmed ???Type cholecalciferol (vitamin D3) 25 25 mcg PO DAILY 05/17/23 04/20/24 History mcg (1,000 unit) capsule multivitamin 1 tab PO DAILY 05/17/23 04/20/24 History pantoprazole 40 mg tablet,delayed 40 mg PO DAILY 05/17/23 04/20/24 History release BALANCE OF NATURE FRUITS 3 tab PO DAILY 07/14/23 04/20/24 History BALANCE OF NATURE VEGETABLES 3 tab PO DAILY 07/14/23 04/20/24 History celecoxib 200 mg capsule (Celebrex) 200 mg PO DAILY 12/22/23 04/20/24 History tamoxifen 20 mg tablet 20 mg PO DAILY #90 tabs 01/24/24 04/20/24 Rx famotidine 40 mg tablet 40 mg PO QHS 03/23/24 04/20/24 History apixaban 2.5 mg tablet (Eliquis) 2.5 mg PO BID post op 03/28/24 04/20/24 Rx anticoagulant #60 tabs ondansetron 4 mg disintegrating 4 mg PO Q8H PRN nausea and 03/29/24 04/20/24 Rx tablet vomiting #10 tabs ondansetron 4 mg disintegrating 4 mg PO Q8H PRN nausea and 03/29/24 04/20/24 Rx tablet vomiting #10 tabs oxycodone 5 mg tablet 5 mg PO BID PRN pain 5 days #10 03/29/24 04/20/24 Rx tabs oxycodone 5 mg tablet 5 mg PO Q12H PRN pain 5 days #10 03/29/24 04/20/24 Rx tabs silver sulfadiazine 1 % topical 1 applic topical BID 21 days #50 04/13/24 04/20/24 Rx cream (Silvadene) grams Have you fallen in the past year?: No Nurse's Note: pt here for follow up , question: how long do need to keep arm wrapped. Subjective Details: Patient states she is doing well. Overall, she states that her left arm feels less heavy and says there is a decrease in the swelling. She states that even the occupational therapist has measured her arm as smaller compared to before the surgery. She states that the compression is driving her crazy and she has not been wearing it during the day over the past 2 days. She does wear the compression wraps at bedtime. She has a difficult time putting her compression sleeve by herself. She states that she has stopped the Silvadene cream to the wound on her left forearm and has been placing antibiotic ointment to the area instead. She also has been allowing it to air out. This area is painful. Objective Details: The incisions are almost completely healed. The bruising has completely resolved. No erythema. No clinical signs of infection. She has minimal swelling of her left arm and hand. She has only been wearing compression at bedtime. She continues to have a painful wound on her left dorsal forearm. It now has nonviable, thickened tissue/scabbing on it. Attempted to debride it after spraying the area with Cetacaine but she did not tolerate this at all. Coding Level of Care Code Global Post Op Diagnoses Lymphedema I89.0 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 Encounter for education Post-menopausal History of edema Abnormal MRI, breast Wears glasses Cancer Arthritis History of hiatal hernia Gastric reflux Non-smoker History of echocardiogram Triple negative breast cancer Abnormal mammogram of left breast Left breast mass Hemorrhoids Abdominal pain Surgical History History of partial mastectomy of both breasts History of lymph node dissection of left axilla History of foot surgery H/O: hysterectomy Total knee replacement status Family History Mother Breast cancer Diabetes Grandmother Breast cancer Sister Breast cancer Father Cancer Prostate and metastatic bone Heart disease Social History (Reviewed 04/21/24 @ 13:15 by Dee Carr CRUSHER FOREMAN, CRUSHER FOREMAN- (more content not included)... Normal [facility] CBC W/Diff, Automatedon 10-2 Absolute Lymph 0.45 X10 3/uL Low 0.83-4.51 [facility] Comment on above: Performed By: #### L 100.0100, L500.4050, L504.2610 ####[facility] [address] [place], [address] Absolute Neut 2.7 X10 3/uL Normal 2.0-7.7 [facility] Comment on above: Performed By: #### L 100.0100, L500.4050, L504.2610 ####[facility] [address] [place], [address] Basophils/100 WBC (Bld) 0.6 % Normal 0-1 [facility] Comment on above: Performed By: #### L 100.0100, L500.4050, L504.2610 ####[facility] [address] [place], [address] Eosinophils/100 WBC (Bld) 3.4 % Normal 0-5 [facility] Comment on above: Performed By: #### L 100.0100, L500.4050, L504.2610 ####[facility] [address] [place], [address] Erythrocyte distribution width (RBC) [Ratio] 13.2 % Normal 11.6-14.6 [facility] Comment on above: Performed By: #### L 100.0100, L500.4050, L504.2610 ####[facility] [address] [place], [address] Hematocrit (Bld) [Volume fraction] 39.1 % Normal 37-47 [facility] Comment on above: Performed By: #### L 100.0100, L500.4050, L504.2610 ####[facility] [address] [place], [address] Hemoglobin (Bld) [Mass/Vol] 12.6 g/dL Normal 12.0-15.0 [facility] Comment on above: Performed By: #### L 100.0100, L500.4050, L504.2610 ####[facility] [address] [place], [address] IG% 0.300 Normal 0.0-0.9 [facility] Comment on above: Result Comment: IG% - Immature Granulocytes (promyelocytes, myelocytes and metamyelocytes) > 1% indicates that a LEFT SHIFT is Present. Performed By: #### L 100.0100, L500.4050, L504.2610 ####[facility] [address] [place], [address] Lymphocytes/100 WBC (Bld) 12.7 % Low 19-41 [facility] Comment on above: Performed By: #### L 100.0100, L500.4050, L504.2610 ####[facility] [address] [place], [address] MCH (RBC) [Entitic mass] 29.9 pg Normal 27.0-32.0 [facility] Comment on above: Performed By: #### L 100.0100, L500.4050, L504.2610 ####[facility] [address] [place], [address] MCHC (RBC) [Mass/Vol] 32.2 g/dL Normal 32-36 [facility] Comment on above: Performed By: #### L 100.0100, L500.4050, L504.2610 ####[facility] [address] [place], [address] MCV (RBC) [Entitic vol] 92.9 fL Normal 81-99 [facility] Comment on above: Performed By: #### L 100.0100, L500.4050, L504.2610 ####[facility] [address] [place], [address] Monocytes/100 WBC (Bld) 6.2 % Normal 0-10 [facility] Comment on above: Performed By: #### L 100.0100, L500.4050, L504.2610 ####[facility] [address] [place], [address] Neutrophils/100 WBC (Bld) 76.8 % High 47-70 [facility] Comment on above: Performed By: #### L 100.0100, L500.4050, L504.2610 ####[facility] [address] [place], [address] Nucleated RBC (Bld) [#/Vol] 0 10*3/uL Normal 0-5 [facility] Comment on above: Performed By: #### L 100.0100, L500.4050, L504.2610 ####[facility] [address] [place], [address] Platelet mean volume (Bld) [Entitic vol] 8.4 fL Normal 6.2-12.0 [facility] Comment on above: Performed By: #### L 100.0100, L500.4050, L504.2610 ####[facility] [address] [place], [address] Platelets (Bld) [#/Vol] 202 10*3/uL Normal 150-450 [facility] Comment on above: Performed By: #### L 100.0100, L500.4050, L504.2610 ####[facility] [address] [place], [address] RBC (Bld) [#/Vol] 4.21 10*6/uL Normal 4.2-5.4 [facility] Comment on above: Performed By: #### L 100.0100, L500.4050, L504.2610 ####[facility] [address] [place], [address] RDW SD 44.8 fl High 35.1-43.9 [facility] Comment on above: Performed By: #### L 100.0100, L500.4050, L504.2610 ####[facility] [address] [place], [address] WBC (Bld) [#/Vol] 3.5 10*3/uL Low 4.4-11.0 [facility] Comment on above: Performed By: #### L 100.0100, L500.4050, L504.2610 ####[facility] [address] [place], [address] Comprehensive Metabolic Prof [facility] 04-17-2024 Albumin [Mass/Vol] 3.4 g/dL Normal 3.2-5.0 [facility] Comment on above: Order Comment: 1 Performed By: #### L 100.0100, L500.4050, L504.2610 ####[facility] [address] [place], [address] Albumin/Globulin [Mass ratio] 1.1 {ratio} Normal 0.9-2.4 [facility] Comment on above: Order Comment: 1 Performed By: #### L 100.0100, L500.4050, L504.2610 ####[facility] [address] [place], [address] ALK P 83 U/L Normal 45-117 [facility] Comment on above: Order Comment: 1 Performed By: #### L 100.0100, L500.4050, L504.2610 ####[facility] [address] [place], [address] ALT [Catalytic activity/Vol] 17 U/L Normal 13-56 [facility] Comment on above: Order Comment: 1 Performed By: #### L 100.0100, L500.4050, L504.2610 ####[facility] [address] [place], [address] AST [Catalytic activity/Vol] 12 U/L Low 15-37 [facility] Comment on above: Order Comment: 1 Performed By: #### L 100.0100, L500.4050, L504.2610 ####[facility] [address] [place], [address] Bilirubin [Mass/Vol] 0.30 mg/dL Normal 0.20-1.00 [facility] Comment on above: Order Comment: 1 Result Comment: For patients on eltrombopag therapy, use of Dimension [place] TBIL is not recommended. Performed By: #### L 100.0100, L500.4050, L504.2610 ####[facility] [address] [place], [address] BUN/CRE 17.2 RATIO Normal 10-20 [facility] Comment on above: Order Comment: 1 Performed By: #### L 100.0100, L500.4050, L504.2610 ####[facility] [address] [place], [address] CA,Total 8.8 mg/dL Normal 8.5-10.1 [facility] Comment on above: Order Comment: 1 Performed By: #### L 100.0100, L500.4050, L504.2610 ####[facility] [address] [place], [address] Chloride [Moles/Vol] 108 mmol/L High 98-107 [facility] Comment on above: Order Comment: 1 Performed By: #### L 100.0100, L500.4050, L504.2610 ####[facility] [address] [place], [address] CO2 [Moles/Vol] 26.0 mmol/L Normal 21.0-32.0 [facility] Comment on above: Order Comment: 1 Performed By: #### L 100.0100, L500.4050, L504.2610 ####[facility] [address] [place], [address] Creatinine [Mass/Vol] 0.99 mg/dL Normal 0.55-1.02 [facility] Comment on above: Order Comment: 1 Result Comment: The validity of the calculated GFR GFRAA in patients over 70 years has not been determined. Clinical correlation is essential. Performed By: #### L 100.0100, L500.4050, L504.2610 ####[facility] [address] [place], [address] ECRCL 56.76 ml/min Normal [facility] Comment on above: Order Comment: 1 Performed By: #### L 100.0100, L500.4050, L504.2610 ####[facility] [address] [place], [address] EST GFR - AA 71 mL/min Normal >60 [facility] Comment on above: Order Comment: 1 Result Comment: Afri can [place] GFR Calc Performed By: #### L 100.0100, L500.4050, L504.2610 ####[facility] [address] [place], [address] GAP 8 Normal 5-15 [facility] Comment on above: Order Comment: 1 Performed By: #### L 100.0100, L500.4050, L504.2610 ####[facility] [address] [place], [address] GFR/1.73 sq M.predicted among non-blacks MDRD (S/P/Bld) [Vol rate/Area] 59 mL/min/{1.73_m2} Low >60 [facility] Comment on above: Order Comment: 1 Result Comment: Non- GFR Calc Performed By: #### L 100.0100, L500.4050, L504.2610 ####[facility] [address] [place], [address] Globulin (S) [Mass/Vol] 3.1 g/dL Normal 2.2-4.2 [facility] Comment on above: Order Comment: 1 Performed By: #### L 100.0100, L500.4050, L504.2610 ####[facility] [address] [place], [address] Glucose [Mass/Vol] 144 mg/dL High 74-106 [facility] Comment on above: Order Comment: 1 Result Comment: Fast ing Glucose result greater than or equal to 126 mg/dL suggests DIABETES MELLITUS per A.D.A. criteria. Performed By: #### L 100.0100, L500.4050, L504.2610 ####[facility] [address] [place], [address] Potassium [Moles/Vol] 3.7 mmol/L Normal 3.5-5.1 [facility] Comment on above: Order Comment: 1 Performed By: #### L 100.0100, L500.4050, L504.2610 ####[facility] [address] [place], [address] Sodium [Moles/Vol] 142 mmol/L Normal 136-145 [facility] Comment on above: Order Comment: 1 Performed By: #### L 100.0100, L500.4050, L504.2610 ####[facility] [address] [place], [address] T PROT 6.5 g/dL Normal 6.4-8.2 [facility] Comment on above: Order Comment: 1 Performed By: #### L 100.0100, L500.4050, L504.2610 ####[facility] [address] [place], [address] Urea nitrogen [Mass/Vol] 17 mg/dL Normal 7-18 [facility] Comment on above: Order Comment: 1 Performed By: #### L 100.0100, L500.4050, L504.2610 ####[facility] [address] [place], [address] Estimated glomerular filtrat ion rate (GFR) AmericanOrdered By: Romain Griffin on 04-17-2024 Estimated GFR (MDRD) Amer 71 mL/min >60 [facility] Comment on above: GFR Calc LDHon 04-17-2024 LDH 191 U/L Normal 84-246 [facility] Comment on above: Order Comment: 1 Performed By: #### L 100.0100, L500.4050, L504.2610 ####[facility] [address] [place], [address] Oncology Visit Reporton 03-29 Oncology Visit Report [facility] [address] [place] [address] OFFICE VISIT Date of Service: 04/17/24 1131 MR#: [id number] Acct: [id number] Name: CYNTHIA WALLACE Rep #: [id number] : 1955 From: Romain Griffin MD Age/Sex: 68/F [place] [facility] Status: Signed HPI Subjective Date of Service 04/17/24 Chief Complaint F/u for R breast DCIS and L breast cancer. History of Present Illness 68y.o.woman with H/O anal cancer in 2018, was found to have abnormal mammogram on 04/22/2023-[facility] lateral breast 7.7mm nodule. US L breast on 04/26/2023 showed 6mm nodule at 3:00 position. Stereotactic biopsy on 05/05/2023 showed Invasive Ductal carcinoma, ER/SC/Her2 negative, Ki67 10%. She was referred for further evaluation and management, MRI breast was requested which showed bilateral breast nodules. She underwent bilateral breast partial mastectomy on 07/22/2023. Pathology showed Invasive Ductal Carcinoma, tumor size 1.5cm, grade 2, margins negative, lymph nodes 10/06 positive, ER negative, SC negative, Her2 negative, Ki 67 10%. Pathologic staging pT1c pN2a. Prognostic staging IIIC. R side showed DCIS. Adjuvant TC 08/19/2023-10/21/23. BRCA 1 2 was negative on 08/29/2023. Got adjuvant Radiation from 11/29/2023 to 12/29/2023 to both breast. Comes for follow up. Had lymphedema surgery L upper extremity on 03/09/2024. Feels well. PFSH Medical History Anemia Cough Constipation 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 Encounter for education Post-menopausal History of edema Abnormal MRI, breast Wears glasses Cancer Arthritis History of hiatal hernia Gastric reflux Non-smoker History of echocardiogram Triple negative breast cancer Abnormal mammogram of left breast Left breast mass Hemorrhoids Abdominal pain Surgical History History of partial mastectomy of both breasts History of lymph node dissection of left axilla History of foot surgery H/O: hysterectomy Total knee replacement status Family History Mother Breast cancer Diabetes Grandmother Breast cancer Sister Breast cancer Father Cancer Prostate and metastatic bone Heart disease Social History Smoking Status: Never smoker alcohol intake: never substance use type: does not use additional social history: pt denies vaping, denies marijuana use, denies edibles, denies aspirin and ibuprofen use Intake Vital Signs 01/24/24 14:40 04/13/24 14:00 04/17/24 11:32 Height 5 ft 3 in 5 ft 3 in 5 ft 3 in Weight: 94.007 kg BMI 36.7 BP 143/77 H Blood Pressure Location Rt brachial Position Sitting Respiration 18 Pulse 67 Pulse Source Monitor Temp 97 F L Temperature Source Temporal Artery Pulse Oximetry (%) 97 Oxygen Delivery Method room air Intake Is patient in pain?: No Allergies Dressing: Non-Medicated Allergy (Intermediate, Verified 04/17/24 11:36) Rash Medications ???Medication ???Instructions ???Recorded ???Confirmed ???Type cholecalciferol (vitamin D3) 25 25 mcg PO DAILY 05/17/23 04/17/24 History mcg (1,000 unit) capsule multivitamin 1 tab PO DAILY 05/17/23 04/17/24 History pantoprazole 40 mg tablet,delayed 40 mg PO DAILY 05/17/23 04/17/24 History release BALANCE OF NATURE FRUITS 3 tab PO DAILY 07/14/23 04/17/24 History BALANCE OF NATURE VEGETABLES 3 tab PO DAILY 07/14/23 04/17/24 History celecoxib 200 mg capsule (Celebrex) 200 mg PO DAILY 12/22/23 04/17/24 History tamoxifen 20 mg tablet 20 mg PO DAILY #90 tabs 01/24/24 04/17/24 Rx famotidine 40 mg tablet 40 mg PO QHS 03/23/24 04/17/24 History rivaroxaban 10 mg tablet (Xarelto) 10 mg PO QDAY 28 days #28 tabs 03/24/24 04/17/24 Rx apixaban 2.5 mg tablet (Eliquis) 2.5 mg PO BID post op 03/28/24 04/17/24 Rx anticoagulant #60 tabs ondansetron 4 mg disintegrating 4 mg PO Q8H PRN nausea and 03/29/24 04/17/24 Rx tablet vomiting #10 tabs ondansetron 4 mg disintegrating 4 mg PO Q8H PRN nausea and 03/29/24 04/17/24 Rx tablet vomiting #10 tabs oxycodone 5 mg tablet 5 mg PO BID PRN pain 5 days #10 03/29/24 04/17/24 Rx tabs oxycodone 5 mg tablet 5 mg PO Q12H PRN pain 5 days #10 03/29/24 04/17/24 Rx tabs silver sulfadiazine 1 % topical 1 applic topical BID 21 days #50 04/13/24 04/17/24 Rx cream (Silvadene) grams Have you fallen in the past year?: No Central Venous Access Central Venous Access: No Exam Physical Exam Const alert, oriented x3 and no apparent distress HEENT normocephalic Eyes conjunctivae normal and no scleral icterus Chest Chest Narrative: Port R IC area. Resp normal respiratory effort Auscultation: wheezes expiratory w (more content not included)... [facility] Plastic Surgery Visit Report on 04-13-2024 Plastic Surgery Visit Report [facility] Plastic Reconstructive Surgery [address], [address] [place], [place] [address] OFFICE VISIT Date of Service: 04/13/24 MR#: [id number] Acct: [id number] Name: CYNTHIA WALLACE Rep #: [id number] : 1955 Provider: LUCILA peña Age/Sex: 68/F [place] [facility] [place] Status: Signed Pt seen evaluated w/JOHN. I personally interviewed exam the pt. I was involved in all aspects of pt's orders, interpretation of results treatment Intake Vital Signs 04/06/24 13:08 04/13/24 14:00 Height 5 ft 3 in 5 ft 3 in BP 147/84 H 159/86 H Blood Pressure Location Rt brachial Rt brachial Position Sitting Sitting Respiration 16 16 Pulse 65 69 Temp 97.6 F L 97.5 F L Temp Source Oral Oral Pulse Oximetry (%) 94 94 Oxygen Delivery Method room air room air Intake Visit Reasons: SUTURE REMOVAL Chief Complaint: post op Is patient in pain?: No Allergies Dressing: Non-Medicated Allergy (Intermediate, Verified 04/13/24 14:00) Rash Medications ???Medication ???Instructions ???Recorded ???Confirmed ???Type cholecalciferol (vitamin D3) 25 25 mcg PO DAILY 05/17/23 04/13/24 History mcg (1,000 unit) capsule multivitamin 1 tab PO DAILY 05/17/23 04/13/24 History pantoprazole 40 mg tablet,delayed 40 mg PO DAILY 05/17/23 04/13/24 History release BALANCE OF NATURE FRUITS 3 tab PO DAILY 07/14/23 04/13/24 History BALANCE OF NATURE VEGETABLES 3 tab PO DAILY 07/14/23 04/13/24 History celecoxib 200 mg capsule (Celebrex) 200 mg PO DAILY 12/22/23 04/13/24 History tamoxifen 20 mg tablet 20 mg PO DAILY #90 tabs 01/24/24 04/13/24 Rx famotidine 40 mg tablet 40 mg PO QHS 03/23/24 04/13/24 History rivaroxaban 10 mg tablet (Xarelto) 10 mg PO QDAY 28 days #28 tabs 03/24/24 04/13/24 Rx apixaban 2.5 mg tablet (Eliquis) 2.5 mg PO BID post op 03/28/24 04/13/24 Rx anticoagulant #60 tabs ondansetron 4 mg disintegrating 4 mg PO Q8H PRN nausea and 03/29/24 04/13/24 Rx tablet vomiting #10 tabs ondansetron 4 mg disintegrating 4 mg PO Q8H PRN nausea and 03/29/24 04/13/24 Rx tablet vomiting #10 tabs oxycodone 5 mg tablet 5 mg PO BID PRN pain 5 days #10 03/29/24 04/13/24 Rx tabs oxycodone 5 mg tablet 5 mg PO Q12H PRN pain 5 days #10 03/29/24 04/13/24 Rx tabs silver sulfadiazine 1 % topical 1 applic topical BID 21 days #50 04/13/24 04/13/24 Rx cream (Silvadene) grams Have you fallen in the past year?: No Nurse's Note: pt here post op-sore spot on forearm, accompanied by Subjective Details: Patient is doing well. She states that she has discomfort when she is wearing her compression garment that is placed by OT (short stretch compression). She is having some discomfort in one incision on her dorsal left forearm. There is a small skin tear in this area. She denies any complaints with the other incisions. Objective Details: Incisions are healing well. Bruising resolved. There is a small skin tear on the one incision on the dorsal forearm. It is very superficial. It is painful. Clinically does not look infected. Will have her start placing Silvadene cream to this area twice daily. Sutures removed without difficulty. Instructed her to continue to wear her compression at all times except for bathing. Continue lifting restriction. Coding Level of Care Code Global Post Op Diagnoses Lymphedema I89.0 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 Encounter for education Post-menopausal History of edema Abnormal MRI, breast Wears glasses Cancer Arthritis History of hiatal hernia Gastric reflux Non-smoker History of echocardiogram Triple negative breast cancer Abnormal mammogram of left breast Left breast mass Hemorrhoids Abdominal pain Surgical History History of partial mastectomy of both breasts History of lymph node dissection of left axilla History of foot surgery H/O: hysterectomy Total knee replacement status Family History Mother Breast cancer Diabetes Grandmother Breast cancer Sister Breast cancer Father Cancer Prostate and metastatic bone Heart disease Social History Smoking Status: Never smoker alcohol intake: never substance use type: does not use additional social history: pt denies vaping, denies marijuana use, denies edibles, denies aspirin and ibuprofen use Assessment and Plan (No Qualifiers) Assessment and Plan (1) Lymphedema: Status: Acute Plan Plan for followup in 1 week with me to evaluate healing. Monitor wound/bruising over the dorsal incision. Place Silvadene cr (more content not included)... [facility] Dexa Bone Density Studyon Dexa Bone Density Study [facility] Imaging Services [address] [place] [address] Dexa Bone Density Study MR#: [id number] Acct: [id number] Name: CYNTHIA WALLACE Rep #: [id number] : 1955 F 68 From: Flakito tse MD PCP: Chiquis Azul, CRUSHER FOREMAN-C Status: REG CL Study: Dexa Bone Density Study Date of Exam: 04/11/24 Exam# [id number] Ordering Dr: Romain Griffin MD [id number] STUDY: DUAL ENERGY X-RAY ABSORPTIOMETRY / DXA REASON FOR EXAM: Female, 68 years old. SCREENING TECHNIQUE: Bone Mineral Density (BMD) measurements of lumbar spine and bilateral hips were obtained. COMPARISON: None. FINDINGS: Lumbar Spine (L1-L4): g/cm2 (1.028) / T-score (-0.2) / Z-score (2.0) Findings are suggestive of normal bone density with a low fracture risk. Left Femur Total: g/cm2 (0.896) / T-score (-0.4) / Z-score (1.2) Left Femoral Neck: g/cm2 (0.760) / T-score (-0.8) / Z-score (1.0) Right Femur Total: g/cm2 (0.965) / T-score (0.2) / Z-score (1.7) Right Femoral Neck: g/cm2 (0.772) / T-score (-0.7) / Z-score (1.1) BD/Dexa Bone Density Study IMPRESSION: The patient is considered normal as outlined below according to World Matthew Organization (WHO) criteria with a low fracture risk. Reference Information: The T-score is the number of standard deviations above or below the standard which is normal for young adults at their peak bone mineral density. The World Health Organization (WHO) interprets the T-scores as follows: Above -1 Normal bone density Between -1 and -2.5 Osteopenia Equal to / or below -2.5 Osteoporosis As a practical clinical guideline, osteopenia may be graded as follows: Mild -1 through -1.5 Moderate -1.6 through -2.0 Severe -2.1 through -2.4 The Z-score is the number of standard deviations above or below age-matched controls. A Z-score of less than -1.5 would be considered abnormal. References: 1. NIH Osteoporosis and Related Bone Diseases www osteo.org 2. International Society for Clinical Densitometry www iscd.org 3. National Osteoporosis Foundation www nof.org Electronically Signed: Flakito Hernández MD at 9:54 EDT , CC: LUCILA Azul; Dr. Romain Griffin MD Cardiac Tech: Signed [facility] Plastic Surgery Visit Report on 04-06-2024 Plastic Surgery Visit Report [facility] Plastic Reconstructive Surgery [address], [address] [place] [address] OFFICE VISIT Date of Service: 04/06/24 MR#: [id number] Acct: [id number] Name: CYNTHIA WALLACE Rep #: [id number] : 1955 Provider: Dr. Celso Rod MD Age/Sex: 68/F Location: [facility] Status: Signed Intake Vital Signs 3 03/29/24 09:20 04/06/24 13:08 Height 5 ft 3 in 5 ft 3 in BP 147/84 H Blood Pressure Location Rt brachial Position Sitting Respiration 16 Pulse 65 Temp 97.6 F L Temp Source Oral Pulse Oximetry (%) 94 Oxygen Delivery Method room air Intake Visit Reasons: POST OP Chief Complaint: post op Is patient in pain?: Yes (07/07) Allergies Dressing: Non-Medicated Allergy (Intermediate, Verified 04/06/24 13:10) Rash Medications 3 ???Medication ???Instructions ???Recorded ???Confirmed ???Type cholecalciferol (vitamin D3) 25 25 mcg PO DAILY 05/17/23 04/06/24 History mcg (1,000 unit) capsule multivitamin 1 tab PO DAILY 05/17/23 04/06/24 History pantoprazole 40 mg tablet,delayed 40 mg PO DAILY 05/17/23 04/06/24 History release BALANCE OF NATURE FRUITS 3 tab PO DAILY 07/14/23 04/06/24 History BALANCE OF NATURE VEGETABLES 3 tab PO DAILY 07/14/23 04/06/24 History celecoxib 200 mg capsule (Celebrex) 200 mg PO DAILY 12/22/23 04/06/24 History tamoxifen 20 mg tablet 20 mg PO DAILY #90 tabs 01/24/24 04/06/24 Rx famotidine 40 mg tablet 40 mg PO QHS 03/23/24 04/06/24 History rivaroxaban 10 mg tablet (Xarelto) 10 mg PO QDAY 28 days #28 tabs 03/24/24 04/06/24 Rx apixaban 2.5 mg tablet (Eliquis) 2.5 mg PO BID post op 03/28/24 04/06/24 Rx anticoagulant #60 tabs ondansetron 4 mg disintegrating 4 mg PO Q8H PRN nausea and 03/29/24 04/06/24 Rx tablet vomiting #10 tabs ondansetron 4 mg disintegrating 4 mg PO Q8H PRN nausea and 03/29/24 04/06/24 Rx tablet vomiting #10 tabs oxycodone 5 mg tablet 5 mg PO BID PRN pain 5 days #10 03/29/24 04/06/24 Rx tabs oxycodone 5 mg tablet 5 mg PO Q12H PRN pain 5 days #10 03/29/24 04/06/24 Rx tabs Have you fallen in the past year?: No Nurse's Note: pt here for post op, still on eliquis, questions about labs Subjective Details: LYMPHEDEMA RECONSTRUCTION OPERATIVE REPORT NAME: Cynthia Wallace, 68 YO SURGERY/ PROCEDURE DATE: 29 March 2024 INCISION/ PROCEDURE START TIME: 12:41 pm INCISION CLOSE/ PROCEDURE ENDTIME: 5:14 pm (4 hours 27 minutes) SURGEON(S)/TOOL DESIGNER( S): Celso Rod MD, Chester Kaufman ([facility]), Minda Gill ([facility]) ANESTHESIA: general OPERATION: 1.Mapping of superficial lymphatics in left upper extremity using indocyanine green lymphography (CPT: 85118, injection procedure involving the lymphatic system) 2. Mapping of superficial venous system in left extremity using vein visualization system (vein finder) 3. Lymphatic reconstruction with supermicrosurgical lymphaticovenular anastomosis (LVA) with end-to-end anastomoses (0.6 mm lymphatic and venule) created with left dorsal/radial mid-forearm exploratory incision dissected (CPT 57930, repair of upper extremity blood vessel) 4. Lymphatic reconstruction with supermicrosurgical lymphaticovenular anastomosis (LVA) with two intussuscepted lymphatics into larger vein (octopus technique) anastomoses (one 0.5 mm lymphatic and one 0.6 mm lymphatic into 1 mm venule) created with left volar/ulnar mid-forearm exploratory incision dissected (CPT 95058) 5. Lymphatic reconstruction with supermicrosurgical lymphaticovenular anastomosis (LVA) with with two intussuscepted lymphatics into larger vein (octopus technique) anastomoses (two 0.5 mm lymphatics into 1 mm venule) created with left volar/radial mid-forearm exploratory incision dissected (CPT 26150) 6. Simple closure of two separate exploratory sites for LVA (unable to find sufficient vein/lymphatic for reconstruction) located on the left dorsal and volar mid forearm, 8 cm total ([id number]) 7. Use of the microscope in the operating room for the above procedure on the left forearm (CPT 87524) CURRENT ENCOUNTER, 06 April 2024: Cynthia Wallace 68yr old female presents in office for her post op visit status post lymphedema reconstruction. Pt states left arm sore. Compliant with compression sleeve from lymphedema therapist (saw POD 2 and POD 5). No fever/chills. She has been compliant with her blood thinners. No swelling in lower extremities. No SOB Objective Details: Incision site sutures intact. No induration/signs of infection. Posterior forearm has some bruising surrounding one of the dorsal incisions. Minimal swelling hand/arm (compliant with compression) LOWER EXTREMITIES: No asymmetry, normal size. No signs of DVT. Coding Level of Care Code Global Post Op Diagnoses Lymphedema I89.0 PFSH M (more content not included)... [facility] H AND P Exam - Surgicalon H&P Exam - Surgical [facility] Medical Records Department [address] [place] [address] H P Exam - Surgical 03/29/24 1044 MR#: [id number] Acct: [id number] Name: CYNTHIA WALLACE Rep #: [id number] : 1955 68 From: Celso Rod MD PCP: Chiquis Azul, CRUSHER FOREMAN-C Status:[facility] Location: [facility] [place] HPI - General HPI Narrative CYNTHIA WALLACE, is a 68 F who presents WITH LEFT UPPER EXTREMITY LYMPHEDEMA. Current Encounter (DATE OF SURGERY H P UPDATE): I saw and examined the patient this morning in pre- operative holding. We discussed risks and benefits of today's surgery and they would like to proceed. NO CHANGE in health history since last seen and evaluated. Ready to proceed with surgery. 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 Encounter for education Post-menopausal History of edema Abnormal MRI, breast Wears glasses Cancer Arthritis History of hiatal hernia Gastric reflux Non-smoker History of echocardiogram Triple negative breast cancer Abnormal mammogram of left breast Left breast mass Hemorrhoids Abdominal pain Home Medications ???Medication ???Instructions ???Recorded ???Last Taken ???Type cholecalciferol (vitamin D3) 25 25 mcg PO DAILY 05/17/23 08/15/23 History mcg (1,000 unit) capsule multivitamin 1 tab PO DAILY 05/17/23 03/08/24 History pantoprazole 40 mg tablet,delayed 40 mg PO DAILY 05/17/23 03/08/24 History release BALANCE OF NATURE FRUITS 3 tab PO DAILY 07/14/23 08/15/23 History BALANCE OF NATURE VEGETABLES 3 tab PO DAILY 07/14/23 08/15/23 History celecoxib 200 mg capsule (Celebrex) 200 mg PO DAILY 12/22/23 Unknown History tamoxifen 20 mg tablet 20 mg PO DAILY #90 tabs 01/24/24 Unknown Rx famotidine 40 mg tablet 40 mg PO QHS 03/23/24 Unknown History rivaroxaban 10 mg tablet (Xarelto) 10 mg PO QDAY 28 days #28 tabs 03/24/24 Unknown Rx apixaban 2.5 mg tablet (Eliquis) 2.5 mg PO BID post op 03/28/24 Unknown Rx anticoagulant #60 tabs Allergy/AdvReac Type Severity Reaction Status Date / Time Dressing: Non-Medicated Allergy Intermediate Rash Verified 03/24/24 11:02 Family History Mother Breast cancer Diabetes Grandmother Breast cancer Sister Breast cancer Father Cancer Prostate and metastatic bone Heart disease Surgical History History of partial mastectomy of both breasts History of lymph node dissection of left axilla History of foot surgery H/O: hysterectomy Total knee replacement status Social History Smoking Status: Never smoker alcohol intake: never substance use type: does not use additional social history: pt denies vaping, denies marijuana use, denies edibles, denies aspirin and ibuprofen use Vital Signs Vital Signs Vital Signs: 03/29/24 09:20 03/29/24 09:20 Temperature 97.6 F L Temperature Source Temporal Pulse Rate 63 Respiratory Rate 17 Respiratory Pattern Normal Blood Pressure 136/87 H Blood Pressure Mean 103 Blood Pressure Source Monitor Blood Pressure Position Semi-Fowlers Blood Pressure Location Right Arm Pulse Ox 100 Oxygen Delivery Method Room Air Weight Weight: 203 lb 11.314 oz Body Mass Index (BMI) 36.1 Physical Exam Narrative Left upper extremity swelling. Assessment Plan Assessment/Plan (1) Lymphedema: PLAN: Plan INTERVAL H P PLAN, DATE OF SURGERY: We will proceed with surgery today. I talked the patient extensively about the risks of surgery, including bleeding, infection, damage to surrounding structures, surgical site dehiscence and wound formation, need for wound care, need for repeat operations, failure to obtain the desired result (worsening of lymphedema), DVT/PE (she has her Eliquis 2.5 mg PO BID prescription that she's starting tomorrow night), and the risks of anesthesia including . All of their questions were answered, and they agreed to proceed with surgery. 03/29/24 1046 Cosigner Signature (if applicable): CC: CRUSHER FOREMANSerg Azul; Dr. Celso Rod MD Signed ADDENDUM by Dr. Celso Rod MD on 03/30/24 at 0708 Addendum . 03/30/24 0708 Cosigner Signature (if applicable): cc: CRUSHER FOREMAN-C Chiquis Azul; Dr. Celso Rod MD * Signed [facility] MR/POSTOP.ANEon 03-29-2024 MR/POSTOP.[facility] Medical Records Department [address] [place] [address] Anesthesia Postop Eval I 03/29/241729 MR#: [id number] Acct: [id number] Name: CYNTHIA WALLACE Rep #: [id number] : 1955 68 From: Eren Corley MD PCP: LUCILA Layne Status:REG SDC Y Race: C Location: [place] [address] Anesthesia: Postop Eval I Current Vital Signs Temperature: 98.1 F Pulse Rate: 106 Blood Pressure: 148/61 Respiratory Rate: 16 Pulse Ox: 94 Oxygen Delivery Method: Room Air Assessment Airway patent: Yes Spontaneous unlabored respirations: Yes Mental status: Awake and Calm nausea: No Vomiting: No Anesthesia Complication: No Fluid Hydration Crystalloid volume administer (ml): 1,700 Total IV fluid infused: 1,700 Progress Note Anesthesia document: Postop Eval 1 completed: Yes 03/29/241730 Date Eren Corley MD Cosigner Signature: Date CC: Signed [facility] [id number] 03-29-2024 MR/POSTOPA[address] Medical Records Department [address] [place] [address] Anesthesia Postop Eval II 03/29/241730 MR#: [id number] Acct: [id number] Name: CYNTHIA WALLACE Rep #: [id number] : 1955 68 From: Eren Corley MD PCP: Chiquis Vladislav Tattnall, CRUSHER FOREMAN-C Status:REG SDC Y Race: C Location: [facility]- Anesthesia Postop Eval I Sum Postop Eval Completion status Anesthesia document: Postop Eval 1 completed: Yes Anesthesia Postop Eval I Summary Anesthesia Postop Eval I Summary: Anesthesia Postop Eval I: Assessment Summary Airway patent Yes 03/29/24 17:31 Spontaneous unlabored Yes 03/29/24 17:31 respirations Mental status Awake,Calm 03/29/24 17:31 nausea No 03/29/24 17:31 Vomiting No 03/29/24 17:31 Anesthesia Postop Eval I: Fluid Summary Crystalloid volume administer 1,700 03/29/24 17:31 (ml) Colloids volume administered ( ml) Blood Product volume administered (ml) Total IV fluid infused 1,700 03/29/24 17:31 Anesthesia Postop Eval I: Summary Notes Anesthesia Complication No 03/29/24 17:31 Anesthesia Complication Comment: Post-operative progress note Anesthesia: Postop Eval II Evaluation Mental status: Awake Pain Level: 0 nausea: No Vomiting: No 03/29/24 1731 Date Eren Jordan Signature: Date CC: Signed [facility] Operative Reporton 4 Operative Report [facility] Medical Records Department [address] [place] [address] [place] [address] Operative Report 03/29/24 0937 MR#: [id number] Acct: [id number] Name: NICOLLE WALLACEHoda Espinoza Rep #: [id number] : 1955 68 From: Celso Rod MD PCP: Chiquis Azul NP-C Status:[facility] [place] Location: [facility] [place] Problems Associated Problem List Diagnoses (1) Lymphedema: Operative Report Date of Procedure: 03/29/24 LYMPHEDEMA RECONSTRUCTION OPERATIVE REPORT NAME: Cynthia Wallace, 68 YO FM SURGERY/ PROCEDURE DATE: 29 March 2024 INCISION/ PROCEDURE START TIME: 12:41 pm INCISION CLOSE/ PROCEDURE ENDTIME: 5:14 pm (4 hours 27 minutes) SURGEON(S)/TOOL DESIGNER( S): Celso Rod MD, Chester Kaufman ([employer] INTELLIGENCE ETL DEVELOPER), Minda Gill (BUSINESS INTELLIGENCE ETL DEVELOPER) ANESTHESIA: general OPERATION: 1.Mapping of superficial lymphatics in left upper extremity using indocyanine green lymphography (CPT: 92687, injection procedure involving the lymphatic system) 2. Mapping of superficial venous system in left extremity using vein visualization system (vein finder) 3. Lymphatic reconstruction with supermicrosurgical lymphaticovenular anastomosis (LVA) with end-to-end anastomoses (0.6 mm lymphatic and venule) created with left dorsal/radial mid-forearm exploratory incision dissected (CPT 83453, repair of upper extremity blood vessel) 4. Lymphatic reconstruction with supermicrosurgical lymphaticovenular anastomosis (LVA) with two intussuscepted lymphatics into larger vein (octopus technique) anastomoses (one 0.5 mm lymphatic and one 0.6 mm lymphatic into 1 mm venule) created with left volar/ulnar mid-forearm exploratory incision dissected (CPT 48496) 5. Lymphatic reconstruction with supermicrosurgical lymphaticovenular anastomosis (LVA) with with two intussuscepted lymphatics into larger vein (octopus technique) anastomoses (two 0.5 mm lymphatics into 1 mm venule) created with left volar/radial mid-forearm exploratory incision dissected (CPT 74740) 6. Simple closure of two separate exploratory sites for LVA (unable to find sufficient vein/lymphatic for reconstruction) located on the left dorsal and volar mid forearm, 8 cm total ([id number]) 7. Use of the microscope in the operating room for the above procedure on the left forearm (CPT 08756) PREOPERATIVE DIAGNOSIS: Lymphedema of the left upper extremity after axillary dissection for breast cancer POSTOPERATIVE DIAGNOSIS: Same as the preoperative diagnosis OPERATIVE INDICATIONS: This is a 68 YOFM with ICG lymphographically-con firmed diagnosis of lymphedema involving the left upper extremity. After discussion of treatment options including surgical versus nonsurgical treatments and various surgical procedures, supermicrosurgical lymphaticovenular anastomosis was determined to the treatment of choice.??? Planned procedure, risks, benefits alternatives, indications, limitations, possible complications of the surgery were discussed with the patient thoroughly.??? All questions raised were answered to satisfaction.??? The patient expressed unequivocal understanding and would like to proceed with surgery.??? A consent form was signed. OPERATIVE PROCEDURE: The patient was brought to the operating room and placed in supine position.??? SCDs were placed. Preoperative antibiotic was administered. General anesthesia was induced. ICG mapping lymphography was performed by injecting 0.25% ICG solution intradermally and circumferentially in distal to proximal sequence . After each circumferential injection, immediate scanning with SPY was performed. Linear patterns were seen, suggestive of functioning lymph vessels, and were marked on the skin; however, many of these channels in the forearm, particularly in the volar forearm, -ended into areas of dermal backflow (see lymphogram from the start of the surgery), which was significantly worse than it was one month ago on her previous imaging. ??? Next, all of superficial veins adjacent to the mapped linear patterns were visualized and marked with a near-infrared vein visualization system. Vein scanning was performed from distal to proximal, from medial to lateral, and from volar to dorsal aspects. Incisions were then strategically planned at locations in which both lymph vessels and veins were present, preferably in area just distal to a vein valve, and with lymph vessels being qualitatively acceptable. The high-power surgical microscope was draped. The operative site was prepped and draped in standard sterile fashion. In each of the incisions, the procedure was performed as below.??? 0.05 cc Lymphazeurin was injected 2 cm distal to the planned incision.??? The incision was infiltrate with 0.05 cc of 0.25% bupivucaine with 1:200,000 epinephrine.??? The incision was made with #15 scalpel in partial-thickness, then completed to full-thickness with electrocautery using a Gates tip.??? U (more content not included)... [facility] RENINon 03-28-2024 Renin Activity 0.453 ng/mL/hr Normal 0.167-5.380 [facility] Comment on above: Result Comment: This test was developed and its performance characteristics determined by [facility]. It has not been cleared or approved by the Food and Drug Administration. Performed At: [facility] [address] [id number] Raymond Mccoy MD Ph:[phone] Performed By: #### V IDH, ANEU, LIPID, CMP, CBC, GFR, [id number], A1C, ADIFF #### [place] [address] [place], [place] [address] #### PTH #### [address] [address] Plastic Surgery Visit Report on 03-24-2024 Plastic Surgery Visit Report [facility] Plastic Reconstructive Surgery [address], [address] [place] [address] OFFICE VISIT Date of Service: 03/24/24 MR#: [id number] Acct: [id number] Name: CYNTHIA WALLACE Rep #: [id number] : 1955 Provider: Dr. Celso Rod MD Age/Sex: 68/F Location: [facility] Status: Signed Intake Vital Signs 03/13/24 08:12 03/24/24 11:03 Height 5 ft 3 in Weight: 203 lb 204 lb BMI 35.9 BP 135/82 H 121/74 H Blood Pressure Location Rt brachial Rt brachial Position Sitting Sitting Respiration 17 18 Pulse 67 76 Pulse Source Monitor Monitor Temp 96 F L 98 F Temp Source Temporal Oral Pulse Oximetry (%) 97 98 Oxygen Delivery Method room air room air Intake Visit Reasons: pre op Chief Complaint: pre op lymphedema Is patient in pain?: No Allergies Dressing: Non-Medicated Allergy (Intermediate, Verified 03/24/24 11:02) Rash Medications ???Medication ???Instructions ???Recorded ???Confirmed ???Type cholecalciferol (vitamin D3) 25 25 mcg PO DAILY 05/17/23 03/24/24 History mcg (1,000 unit) capsule multivitamin 1 tab PO DAILY 05/17/23 03/24/24 History pantoprazole 40 mg tablet,delayed 40 mg PO DAILY 05/17/23 03/24/24 History release BALANCE OF NATURE FRUITS 3 tab PO DAILY 07/14/23 03/24/24 History BALANCE OF NATURE VEGETABLES 3 tab PO DAILY 07/14/23 03/24/24 History celecoxib 200 mg capsule (Celebrex) 200 mg PO DAILY 12/22/23 03/24/24 History tamoxifen 20 mg tablet 20 mg PO DAILY #90 tabs 01/24/24 03/24/24 Rx famotidine 40 mg tablet 40 mg PO QHS 03/23/24 03/24/24 History rivaroxaban 10 mg tablet (Xarelto) 10 mg PO QDAY 28 days #28 tabs 03/24/24 03/24/24 Rx Have you fallen in the past year?: No Nurse's Note: preop lymphedema PFSH Medical History Anemia Cough Constipation 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 Encounter for education Post-menopausal History of edema Abnormal MRI, breast Wears glasses Cancer Arthritis History of hiatal hernia Gastric reflux Non-smoker History of echocardiogram Triple negative breast cancer Abnormal mammogram of left breast Left breast mass Hemorrhoids Abdominal pain Surgical History History of partial mastectomy of both breasts History of lymph node dissection of left axilla History of foot surgery H/O: hysterectomy Total knee replacement status Family History Mother Breast cancer Diabetes Grandmother Breast cancer Sister Breast cancer Father Cancer Prostate and metastatic bone Heart disease Social History Smoking Status: Never smoker alcohol intake: never substance use type: does not use additional social history: pt denies vaping, denies marijuana use, denies edibles, denies aspirin and ibuprofen use HPI pre op Details: Cynthia Wallace is a 68-year-old female with past medical history of anal cancer in 2018 (in remission) who was found to have an abnormal mammogram in March 2023 that demonstrated a left breast mass that was biopsied and was positive for invasive ductal carcinoma, triple negative. Upon further evaluation with an MRI, a right breast mass was also found. She underwent bilateral breast conserving therapy (partial mastectomies/lumpecto mies) in June 2023, which demonstrated a right breast ductal carcinoma in situ. The right axillary contents were sampled with a sentinel node and were negative; however, the left axillary contents were clinically positive during the surgery, and 4 out of 11 lymph nodes from the left axillary dissection were positive for cancer. She underwent radiation of both breasts and axilla, and completed chemotherapy (port was removed). Approximately 6 months following the surgery (1.5 months ago), she started developing intermittent swelling and feelings of heaviness in the left upper extremity (side of the full lymph node dissection) that got worse throughout the course of the day. She followed up with her breast surgeon Dr. Kraus who referred her to lymphedema clinic. She went to the occupational therapist/lymphedema specialist at the lymphedema clinic last week and was fitted for compression garments for total decongestive therapy and begin working with their team. The lymphedema specialist, Guillermina Johnson, took measurements at her visit last week demonstrating an increased size of the left forearm and wrist compared to the right (see measurements below). Today she reports that the feelings of heaviness and swelling are worse throughout the day as she uses her arm and hand, and she noticed that she cannot see the tendons or the veins in her wrist and (more content not included)... Normal [facility] .Auto Diffon 03-23-2024 Basophil, Absolute 0.0 10 3/mcL Normal 0.0-0.2 [facility] Comment on above: Performed By: #### V IDH, ANEU, LIPID, CMP, CBC, GFR, [id number], A1C, ADIFF #### [place] [address] #### PTH #### [address] [address] Basophils/100 WBC (Bld) 1.0 % Normal 0.0-2.5 [facility] Comment on above: Performed By: #### V IDH, ANEU, LIPID, CMP, CBC, GFR, [id number], A1C, ADIFF #### [address] [address] #### PTH #### [facility] [place] [address] [place] [id number] Eosinophil, Absolute 0.1 10 3/mcL Normal 0.0-0.7 [facility] Comment on above: Performed By: #### V IDH, ANEU, LIPID, CMP, CBC, GFR, [id number], A1C, ADIFF #### [address] [address] #### PTH #### [address] [address] Eosinophils/100 WBC (Bld) 2.4 % Normal 0.0-7.0 [facility] Comment on above: Performed By: #### V IDH, ANEU, LIPID, CMP, CBC, GFR, [id number], A1C, ADIFF #### [address] [address] #### PTH #### [address] [address] Lymphocyte, Absolute 0.5 10 3/mcL Low 0.9-4.3 [facility] Comment on above: Performed By: #### V IDH, ANEU, LIPID, CMP, CBC, GFR, [id number], A1C, ADIFF #### [address] [address] #### PTH #### [address] [address] Lymphocytes/100 WBC (Bld) 13.4 % Low 20.0-40.0 [facility] Comment on above: Performed By: #### V IDH, ANEU, LIPID, CMP, CBC, GFR, [id number], A1C, ADIFF #### [address] [address] #### PTH #### [address] [address] Monocyte, Absolute 0.3 10 3/mcL Normal 0.1-1.4 [facility] Comment on above: Performed By: #### V IDH, ANEU, LIPID, CMP, CBC, GFR, [id number], A1C, ADIFF #### [address] [address] #### PTH #### [address] [address] Monocytes/100 WBC (Bld) 8.8 % Normal 2.0-13.0 [facility] Comment on above: Performed By: #### V IDH, ANEU, LIPID, CMP, CBC, GFR, [id number], A1C, ADIFF #### [place] [address] [place], [place] [address] #### PTH #### [address] [address] Neutrophils/100 WBC (Bld) 74.4 % Normal 50.0-75.0 [facility] Comment on above: Performed By: #### V IDH, ANEU, LIPID, CMP, CBC, GFR, [id number], A1C, ADIFF #### [address] [address] #### PTH #### [address] [address] .GFRon 03-23-2024 GFR 66 ml/min/1.73sqm Normal [facility] Comment on above: Result Comment: GFR Population mean for , Non- Americans Ages 20-29 = 116 mL/min/1.73 sq.m. Ages 30-39 = 107 mL/min/1.73 sq.m. Ages 40-49 = 99 mL/min/1.73 sq.m. Ages 50-59 = 93 mL/min/1.73 sq.m. Ages 60-69 = 85 mL/min/1.73 sq.m. Ages 70+ = 75 mL/min/1.73 sq.m. Chronic Kidney Disease: Less than 60 mL/min/1.73 square meters End Stage Renal Disease: Less than 15 mL/min/1.73 square meters Performed By: #### V IDH, ANEU, LIPID, CMP, CBC, GFR, [id number], A1C, ADIFF #### [place] [address] [place], [place] [address] #### PTH #### [address] [address] GFR Non- 55 ml/min/1.73sqm Normal [facility] Comment on above: Result Comment: GFR Population mean for , Non- Americans Ages 20-29 = 116 mL/min/1.73 sq.m. Ages 30-39 = 107 mL/min/1.73 sq.m. Ages 40-49 = 99 mL/min/1.73 sq.m. Ages 50-59 = 93 mL/min/1.73 sq.m. Ages 60-69 = 85 mL/min/1.73 sq.m. Ages 70+ = 75 mL/min/1.73 sq.m. Chronic Kidney Disease: Less than 60 mL/min/1.73 square meters End Stage Renal Disease: Less than 15 mL/min/1.73 square meters Performed By: #### V IDH, ANEU, LIPID, CMP, CBC, GFR, [id number], A1C, ADIFF #### [address] [address] #### PTH #### [address] [address] .NEUABSon 03-23-2024 Neutrophil, Absolute 2.7 10 3/mcL Normal 2.3-8.1 [facility] Comment on above: Performed By: #### V IDH, ANEU, LIPID, CMP, CBC, GFR, [id number], A1C, ADIFF #### [address] [address] #### PTH #### [address] [address] A1Con 03-23-2024 Glucose [Mass/Vol] 111 mg/dL Normal [facility] Comment on above: Result Comment: Yajaira mated Average Glucose calculated by equation ((28.7xA1C)-46.7) Estimated average glucose (eAG) is a calculated value from Hemoglobin A1C and is primary care sales representative of the average blood glucose level in the last 2-3 month period. Normal range: less than 114 mg/dL Performed By: #### V IDH, ANEU, LIPID, CMP, CBC, GFR, [id number], A1C, ADIFF #### [address] [address] #### PTH #### [address] [address] HbA1c (Bld) [Mass fraction] 5.5 % Normal 4.3-6.4 [facility] Comment on above: Performed By: #### V IDH, ANEU, LIPID, CMP, CBC, GFR, [id number], A1C, ADIFF #### [address] [address] #### PTH #### [place] [id number] CBCon 03-23-2024 Erythrocyte distribution width (RBC) [Ratio] 15.2 % Normal 11.5-15.5 [facility] Comment on above: Performed By: #### V IDH, ANEU, LIPID, CMP, CBC, GFR, [id number], A1C, ADIFF #### [address] [address] #### PTH #### [place] [address] Hematocrit (Bld) [Volume fraction] 38.0 % Normal 34.0-46.0 [facility] Comment on above: Performed By: #### V IDH, ANEU, LIPID, CMP, CBC, GFR, [id number], A1C, ADIFF #### [place] [address] #### PTH #### [place] [address] Hgb 12.8 G/dL Normal 12.0-16.0 [facility] Comment on above: Performed By: #### V IDH, ANEU, LIPID, CMP, CBC, GFR, [id number], A1C, ADIFF #### [place] [address] #### PTH #### [place] [address] MCH (RBC) [Entitic mass] 30.6 pg Normal 27.0-33.0 [facility] Comment on above: Performed By: #### V IDH, ANEU, LIPID, CMP, CBC, GFR, 235338, A1C, ADIFF #### [place] [address] #### PTH #### [place] [address] MCHC 33.7 G/dL Normal 32.0-36.0 [facility] Comment on above: Performed By: #### V IDH, ANEU, LIPID, CMP, CBC, GFR, [id number], A1C, ADIFF #### [place] [address] #### PTH #### [place] [address] MCV (RBC) [Entitic vol] 90.7 fL Normal 80.0-99.0 [facility] Comment on above: Performed By: #### V IDH, ANEU, LIPID, CMP, CBC, GFR, [id number], A1C, ADIFF #### [place] [address] #### PTH #### [place] [address] Platelet 199 10 3/mcL Normal 150-450 [facility] Comment on above: Performed By: #### V IDH, ANEU, LIPID, CMP, CBC, GFR, [id number], A1C, ADIFF #### [place] [address] #### PTH #### [place] [address] Platelet mean volume (Bld) [Entitic vol] 7.9 fL Normal 6.6-10.5 [facility] Comment on above: Performed By: #### V IDH, ANEU, LIPID, CMP, CBC, GFR, [id number], A1C, ADIFF #### [place] [address] #### PTH #### [place] [address] RBC 4.19 10 6/mcL Normal 4.10-5.30 [facility] Comment on above: Performed By: #### V IDH, ANEU, LIPID, CMP, CBC, GFR, 427207, A1C, ADIFF #### [place] [address] #### PTH #### [place] [address] WBC 3.7 10 3/mcL Low 4.5-10.8 [facility] Comment on above: Performed By: #### V IDH, ANEU, LIPID, CMP, CBC, GFR, 620516, A1C, ADIFF #### [address] [address] #### PTH #### [address] [address] CMPon 03-23-2024 Albumin Level 3.7 G/dL Normal 3.4-4.8 [facility] Comment on above: Performed By: #### V IDH, ANEU, LIPID, CMP, CBC, GFR, 225511, A1C, ADIFF #### [address] [address] #### PTH #### [address] [address] Albumin/Globulin [Mass ratio] 1.4 {ratio} Normal 1.1-2.5 [facility] Comment on above: Performed By: #### V IDH, ANEU, LIPID, CMP, CBC, GFR, 295620, A1C, ADIFF #### [address] [address] #### PTH #### [address] [address] ALP [Catalytic activity/Vol] 72 U/L Normal 40-135 [facility] Comment on above: Performed By: #### V IDH, ANEU, LIPID, CMP, CBC, GFR, 955525, A1C, ADIFF #### [address] [address] #### PTH #### [address] [address] ALT [Catalytic activity/Vol] 20 U/L Normal 14-59 [facility] Comment on above: Performed By: #### V IDH, ANEU, LIPID, CMP, CBC, GFR, 464701, A1C, ADIFF #### [address] [address] #### PTH #### [address] [address] AST [Catalytic activity/Vol] 12 U/L Normal 10-40 [facility] Comment on above: Performed By: #### V IDH, ANEU, LIPID, CMP, CBC, GFR, 238216, A1C, ADIFF #### [address] [address] #### PTH #### [address] [address] Bili Total 0.4 mg/dL Normal 0.2-1.0 [facility] Comment on above: Result Comment: Use of this assay is not recommended for patients undergoing treatment with eltrombopag due to the potential for falsely elevated results. Performed By: #### V IDH, ANEU, LIPID, CMP, CBC, GFR, [id number], A1C, ADIFF #### [place] [address] #### PTH #### [address] [address] BUN/Creatinine Ratio 20 ratio Normal 7-27 [facility] Comment on above: Performed By: #### V IDH, ANEU, LIPID, CMP, CBC, GFR, 059138, A1C, ADIFF #### [place] [address] #### PTH #### [address] [address] Calcium [Mass/Vol] 8.6 mg/dL Normal 8.4-10.2 [facility] Comment on above: Performed By: #### V IDH, ANEU, LIPID, CMP, CBC, GFR, 948783, A1C, ADIFF #### [place] [address] #### PTH #### [address] [address] Chloride [Moles/Vol] 104 mmol/L Normal 98-107 [facility] Comment on above: Performed By: #### V IDH, ANEU, LIPID, CMP, CBC, GFR, 513831, A1C, ADIFF #### [address] [address] #### PTH #### [address] [address] CO2 [Moles/Vol] 28 mmol/L Normal 23-31 [facility] Comment on above: Performed By: #### V IDH, ANEU, LIPID, CMP, CBC, GFR, [id number], A1C, ADIFF #### [address] [address] #### PTH #### [address] [address] Creatinine [Mass/Vol] 1.00 mg/dL Normal 0.55-1.02 [facility] Comment on above: Result Comment: Test ing performed on Siemens Dimension EXL analyzer using a modified kinetic Elliott technique. Performed By: #### V IDH, ANEU, LIPID, CMP, CBC, GFR, 222687, A1C, ADIFF #### [address] [address] #### PTH #### [address] [address] Electrolyte Balance 8.0 mEq/L Normal 4.0-15.0 [facility] Comment on above: Performed By: #### V IDH, ANEU, LIPID, CMP, CBC, GFR, 312274, A1C, ADIFF #### [address] [address] #### PTH #### [address] [address] Globulin 2.7 G/dL Normal [facility] Comment on above: Performed By: #### V IDH, ANEU, LIPID, CMP, CBC, GFR, 713755, A1C, ADIFF #### [address] [address] #### PTH #### [address] [address] Glucose [Mass/Vol] 94 mg/dL Normal 83-110 [facility] Comment on above: Performed By: #### V IDH, ANEU, LIPID, CMP, CBC, GFR, 866367, A1C, ADIFF #### [address] [address] #### PTH #### [address] [address] Potassium [Moles/Vol] 4.5 mmol/L Normal 3.5-5.1 [facility] Comment on above: Performed By: #### V IDH, ANEU, LIPID, CMP, CBC, GFR, 545568, A1C, ADIFF #### [address] [address] #### PTH #### [address] [address] Sodium [Moles/Vol] 140 mmol/L Normal 136-145 [facility] Comment on above: Performed By: #### V IDH, ANEU, LIPID, CMP, CBC, GFR, [id number], A1C, ADIFF #### [address] [address] #### PTH #### [address] [address] Total Protein 6.4 G/dL Normal 6.4-8.2 [facility] Comment on above: Performed By: #### V IDH, ANEU, LIPID, CMP, CBC, GFR, 102409, A1C, ADIFF #### [address] [address] #### PTH #### [address] [address] Urea nitrogen [Mass/Vol] 20 mg/dL High 7-18 [facility] Comment on above: Performed By: #### V IDH, ANEU, LIPID, CMP, CBC, GFR, 585958, A1C, ADIFF #### [place] [address] #### PTH #### [address] [address] LABORATORYOrdered By: SYSTEM SYSTEM on 03-23-2024 25-hydroxyvitamin D3 [Mass/Vol] 37.2 ng/mL Invalid Interpretation Code AO ADM SS Comment on above: Interpretive Data: I nterpretive Values Based on Total 25(OH) Vitamin D: Deficient <20 ng/mL Insufficient 20 - <30 ng/mL Sufficient 30-100 ng/mL Albumin BCP dye [Mass/Vol] 3.7 G/dL Normal 3.4 - 4.8 G/dL AO ADM SS Albumin/Globulin [Mass ratio] 1.4 {ratio} Normal 1.1 - 2.5 ratio AO ADM SS ALP [Catalytic activity/Vol] 72 U/L Normal 40 - 135 U/L AO ADM SS ALT With P-5'-P [Catalytic activity/Vol] 20 U/L Normal 14 - 59 U/L AO ADM SS AST With P-5'-P [Catalytic activity/Vol] 12 U/L Normal 10 - 40 U/L AO ADM SS Basophils (Bld) [#/Vol] 0.0 103/mcL Normal 0.0 - 0.2 10^3/mcL AO Workflow SS Basophils/100 WBC (Bld) 1.0 % Normal 0.0 - 2.5 % AO Workflow SS Bilirubin [Mass/Vol] 0.4 mg/dL Normal 0.2 - 1 .0 mg/dL AO ADM SS Comment on above: Interpretive Data: U se of this assay is not recommended for patients undergoing treatment with eltrombopag due to the potential for falsely elevated results. Calcium [Mass/Vol] 8.6 mg/dL Normal 8.4 - 10. 2 mg/dL AO ADM SS Chloride [Moles/Vol] 104 mmol/L Normal 98 - 10 7 mmol/L AO ADM SS CO2 [Moles/Vol] 28 mmol/L Normal 23 - 31 mmol/L AO ADM SS Creatinine [Mass/Vol] 1.00 mg/dL Normal 0.55 - 1.02 mg/dL AO ADM SS Comment on above: Interpretive Data: T esting performed on Siemens Dimension EXL analyzer using a modified kinetic Elliott technique. Electrolyte Balance 8.0 mEq/L Normal 4.0 - 15 .0 mEq/L AO ADM SS Eosinophil, Absolute 0.1 103/mcL Normal 0.0 - 0 .7 10^3/mcL AO Workflow SS Eosinophils/100 WBC (Bld) 2.4 % Normal 0.0 - 7.0 % AO Workflow SS Erythrocyte distribution width (RBC) [Ratio] 15.2 % Normal 11.5 - 15.5 % AO Workflow SS GFR/1.73 sq M.predicted among blacks MDRD (S/P/Bld) [Vol rate/Area] 66 ml/min/1.73sqm Invalid Interpretation Code AO Chemistry S Comment on above: Interpretive Data: GFR Population mean for , Non- Americans Ages 20-29 = 116 mL/min/1.73 sq.m. Ages 30-39 = 107 mL/min/1.73 sq.m. Ages 40-49 = 99 mL/min/1.73 sq.m. Ages 50-59 = 93 mL/min/1.73 sq.m. Ages 60-69 = 85 mL/min/1.73 sq.m. Ages 70+ = 75 mL/min/1.73 sq.m. Chronic Kidney Disease: Less than 60 mL/min/1.73 square meters End Stage Renal Disease: Less than 15 mL/min/1.73 square meters GFR/1.73 sq M.predicted among non-blacks MDRD (S/P/Bld) [Vol rate/Area] 55 ml/min/1.73sqm Invalid Interpretation Code AO Chemistry S Comment on above: Interpretive Data: GFR Population mean for , Non- Americans Ages 20-29 = 116 mL/min/1.73 sq.m. Ages 30-39 = 107 mL/min/1.73 sq.m. Ages 40-49 = 99 mL/min/1.73 sq.m. Ages 50-59 = 93 mL/min/1.73 sq.m. Ages 60-69 = 85 mL/min/1.73 sq.m. Ages 70+ = 75 mL/min/1.73 sq.m. Chronic Kidney Disease: Less than 60 mL/min/1.73 square meters End Stage Renal Disease: Less than 15 mL/min/1.73 square meters Globulin 2.7 G/dL Invalid Interpretation Code AO ADM SS Glucose [Mass/Vol] 94 mg/dL Normal 83 - 110 mg/dL AO ADM SS Glucose [Mass/Vol] 111 mg/dL Invalid Interpretation Code AO Chemistry S Comment on above: Interpretive Data: E stimated average glucose (eAG) is a calculated value from Hemoglobin A1C and is primary care sales representative of the average blood glucose level in the last 2-3 month period. Normal range: less than 114 mg/dL HbA1c (Bld) [Mass fraction] 5.5 % Normal 4.3 - 6.4 % AO ADM SS Hematocrit (Bld) [Volume fraction] 38.0 % Normal 34.0 - 46.0 % AO Workflow SS Hemoglobin (Bld) [Mass/Vol] 12.8 G/dL Normal 12.0 - 16.0 G/dL AO Workflow SS Lymphocytes (Bld) [#/Vol] 0.5 103/mcL Low 0.9 - 4.3 10^3/mcL AO Workflow SS Lymphocytes/100 WBC (Bld) 13.4 % Low 20.0 - 40.0 % AO Workflow SS MCH (RBC) [Entitic mass] 30.6 pg Normal 27.0 - 33.0 pg AO Workflow SS MCHC 33.7 G/dL Normal 32.0 - 36.0 G/dL AO Workflow SS MCV (RBC) [Entitic vol] 90.7 fL Normal 80.0 - 99.0 fL AO Workflow SS Monocytes (Bld) [#/Vol] 0.3 103/mcL Normal 0.1 - 1.4 10^3/mcL AO Workflow SS Monocytes/100 WBC (Bld) 8.8 % Normal 2.0 - 13.0 % AO Workflow SS Neutrophils (Bld) [#/Vol] 2.7 103/mcL Normal 2.3 - 8.1 10^3/mcL AO Workflow SS Neutrophils/100 WBC (Bld) 74.4 % Normal 50.0 - 75.0 % AO Workflow SS Parathyrin.intact [Mass/Vol] 59.7 pg/mL Normal 18.5 - 88.0 pg/mL AH ADM SS Platelet mean volume (Bld) [Entitic vol] 7.9 fL Normal 6.6 - 10.5 fL AO Workflow SS Platelets (Bld) [#/Vol] 199 103/mcL Normal 150 - 450 10^3/mcL AO Workflow SS Potassium [Moles/Vol] 4.5 mmol/L Normal 3.5 - 5.1 mmol/L AO ADM SS Protein [Mass/Vol] 6.4 G/dL Normal 6.4 - 8.2 G/dL AO ADM SS RBC (Bld) [#/Vol] 4.19 106/mcL Normal 4.10 - 5.3 0 10^6/mcL AO Workflow SS Sodium [Moles/Vol] 140 mmol/L Normal 136 - 145 mmol/L AO ADM SS Urea nitrogen [Mass/Vol] 20 mg/dL High 7 - 18 mg/dL AO ADM SS Urea nitrogen/Creatinine [Mass ratio] 20 ratio Normal 7 - 27 ratio AO ADM SS WBC (Bld) [#/Vol] 3.7 103/mcL Low 4.5 - 10.8 10^3/mcL AO Workflow SS LABORATORYOrdered By: Amelie Chowdhury on 03-23-2024 Cholesterol [Mass/Vol] 186 mg/dL Normal 0 - 2 00 mg/dL AO ADM SS Comment on above: Interpretive Data: C holesterol Reference Interval: Less than 200 Desirable 200-239 Borderline high risk 240 and above High risk Cholesterol in HDL [Mass/Vol] 47 mg/dL Normal 40 - 60 mg/dL AO ADM SS Cholesterol in LDL [Mass/Vol] 118 mg/dL Normal 0 - 130 mg/dL AO ADM SS Triglyceride [Mass/Vol] 106 mg/dL Normal 0 - 150 mg/dL AO ADM SS Comment on above: Interpretive Data: T riglyceride Reference Interval: Less than 150 Normal 150-199 Borderline high risk 200-499 High risk 500 or higher Very high risk LIPIDon 03-23-2024 Cholesterol [Mass/Vol] 186 mg/dL Normal 0-200 [facility] Comment on above: Result Comment: Chol esterol Reference Interval: Less than 200 Desirable 200-239 Borderline high risk 240 and above High risk Performed By: #### V IDH, ANEU, LIPID, CMP, CBC, GFR, [id number], A1C, ADIFF #### [address] [address] #### PTH #### [address] [address] Cholesterol in HDL [Mass/Vol] 47 mg/dL Normal 40-60 [facility] Comment on above: Performed By: #### V IDH, ANEU, LIPID, CMP, CBC, GFR, 475872, A1C, ADIFF #### [address] [address] #### PTH #### [address] [address] Cholesterol in LDL [Mass/Vol] 118 mg/dL Normal 0-130 [facility] Comment on above: Performed By: #### V IDH, ANEU, LIPID, CMP, CBC, GFR, 518004, A1C, ADIFF #### [address] [address] #### PTH #### [place] [address] Triglyceride [Mass/Vol] 106 mg/dL Normal 0-150 [facility] Comment on above: Result Comment: Trig lyceride Reference Interval: Less than 150 Normal 150-199 Borderline high risk 200-499 High risk 500 or higher Very high risk Performed By: #### V IDH, ANEU, LIPID, CMP, CBC, GFR, [id number], A1C, ADIFF #### [address] [address] #### PTH #### [place] [address] PTHon 03-23-2024 PTH, Intact 59.7 pg/mL Normal 18.5-88.0 [facility] Comment on above: Performed By: #### V IDH, ANEU, LIPID, CMP, CBC, GFR, 000171, A1C, ADIFF #### [place] [address] #### PTH #### [place] [address] VIDHon 03-23-2024 Vit. D 25-Hydroxy 37.2 ng/mL Normal [facility] Comment on above: Result Comment: Inte rpretive Values Based on Total 25(OH) Vitamin D: Deficient <20 ng/mL Insufficient 20 - <30 ng/mL Sufficient 30-100 ng/mL Performed By: #### V IDH, ANEU, LIPID, CMP, CBC, GFR, [id number], A1C, ADIFF #### [place] [address] #### PTH #### [place] [address] Surgery Visit Reporton 03-13 Surgery Visit Report [facility] [address] [place] [address]. [address] [place], [place] [address] OFFICE VISIT Date of Service: 03/13/24 MR#: [id number] Acct: [id number] Name: CYNTHIA WALLACE Olga Rep #: [id number] : 1955 Provider: Dr. Blu ramos MD Age/Sex: 68/F Location: [facility] Status: Signed Intake Vital Signs 01/24/24 14:40 03/08/24 12:28 03/13/24 08:12 Height 5 ft 3 in 5 ft 3 in 5 ft 3 in Weight: 203 lb BMI 35.9 BP 135/82 H Blood Pressure Location Rt brachial Position Sitting Respiration 17 Pulse 67 Pulse Source Monitor Temp 96 F L Temp Source Temporal Pulse Oximetry (%) 97 Oxygen Delivery Method room air Intake Visit Reasons: Dysphagia Chief Complaint: dysphagia Is patient in pain?: No Allergies Dressing: Non-Medicated Allergy (Intermediate, Verified 03/13/24 08:13) Rash Medications ???Medication ???Instructions ???Recorded ???Confirmed ???Type acetaminophen 325 mg tablet 1,000 mg (3.0769 x 325 mg) PO Q8H 07/24/18 03/13/24 Rx (Tylenol) PRN Fever, headache, pain cholecalciferol (vitamin D3) 25 25 mcg PO DAILY 05/17/23 03/13/24 History mcg (1,000 unit) capsule multivitamin 1 tab PO DAILY 05/17/23 03/13/24 History pantoprazole 40 mg tablet,delayed 40 mg PO DAILY 05/17/23 03/13/24 History release BALANCE OF NATURE FRUITS 3 tab PO DAILY 07/14/23 03/13/24 History BALANCE OF NATURE VEGETABLES 3 tab PO DAILY 07/14/23 03/13/24 History lidocaine-prilocaine 2.5 %-2.5 % 1 applic topical ONCE PRN port 08/18/23 03/13/24 Rx topical cream access 30 days #30 grams ondansetron 8 mg disintegrating 8 mg PO Q8H PRN nausea and 08/18/23 03/13/24 Rx tablet vomiting #30 tabs prochlorperazine maleate 10 mg 10 mg PO Q6H PRN nausea and 08/18/23 03/13/24 Rx tablet vomiting #30 tabs docusate sodium 100 mg capsule 100 mg PO DAILY PRN 09/09/23 03/13/24 History (Stool Softener) sennosides 8.6 mg capsule (senna) 8.6 mg PO QHS 09/09/23 03/13/24 History potassium phosphate, monobasic 500 1,000 mg (2 x 500 mg) PO DAILY #14 10/14/23 03/13/24 Rx mg soluble tablet tabs pseudoephedrine-aceta minophen 30 cap PO PRN 10/14/23 03/13/24 History mg-500 mg capsule guaifenesin 1,200 mg tablet, 1,200 mg PO BID 11/04/23 03/13/24 History extended release 12 hr promethazine 6.25 mg/5 mL oral 6.25 mg PO Q6H PRN 11/04/23 03/13/24 History syrup celecoxib 200 mg capsule (Celebrex) 200 mg PO DAILY 12/22/23 03/13/24 History tamoxifen 20 mg tablet 20 mg PO DAILY #90 tabs 01/24/24 03/13/24 Rx Have you fallen in the past year?: No PFSH Medical History Anemia Cough Constipation 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 Encounter for education Post-menopausal History of edema Abnormal MRI, breast Wears glasses Cancer Arthritis History of hiatal hernia Gastric reflux Non-smoker History of echocardiogram Triple negative breast cancer Abnormal mammogram of left breast Left breast mass Hemorrhoids Abdominal pain Surgical History History of partial mastectomy of both breasts History of lymph node dissection of left axilla History of foot surgery H/O: hysterectomy Total knee replacement status Family History Mother Breast cancer Diabetes Grandmother Breast cancer Sister Breast cancer Father Cancer Prostate and metastatic bone Heart disease Social History Smoking Status: Never smoker alcohol intake: never substance use type: does not use additional social history: pt denies vaping, denies marijuana use, denies edibles, denies aspirin and ibuprofen use HPI HPI HPI: Patient is a 68-year-old female here for dysphagia. She says that swallowing her pills she feels like they are getting stuck ROS General General: Yes breast cancer; No weight change, appetite, fatigue, colon cancer or weakness HEENT HEENT: Yes difficulty swallowing; No eye injury, eye surgery, swollen glands or hoarseness Endo Endocrine: No thyroid disease, diabetes mellitus, thyroid cancer, Hair loss, heat intolerance or cold intolerance Skin Skin: No rash or changing moles Breast Additional Details: Left Breast Cancer Musc Musculoskeletal: Yes arthritis; No back problems, rheumatoid arthritis, gout or joint pain Cardio Cardiovascular: No murmur, pacemaker, heart disease, atrial fibrillation, high blood pressure, heart attack, heart stent, palpitations, shortness of breat with exertion or chest pain Psych Psychiatric: No depression, anxiety or hearing voices Resp Respiratory: No shortness of breath, No sleep apnea, No cough, No COPD, No asthma, No (more content not included)... Normal [facility] Ferritin measurementOrdered By: Romain Griffin on 11-04-2023 Ferritin [Mass/Vol] 490 ng/mL High 8-252 [facility] Iron (Unsp spec) [Mass/Mass] Ordered By: Romain Griffin on 11-04-2023 Iron [Mass/Vol] 40 ug/dL Low 50-170 [facility] Iron measurement (mass/mass) Ordered By: Romain Griffin on 11-04-2023 Iron (Unsp spec) [Mass/Mass] 40 ug/dL Low 50-170 [facility] Iron saturation [Mass fracti on]Ordered By: Romain Griffin on 11-04-2023 Iron Saturation 19.0 % 15.0-55.0 [facility] Magnesium measurementOrdered By: Romain Griffin on 11-04-2023 Magnesium [Mass/Vol] 2.1 mg/dL 1.6-2.6 [facility] Phosphorus measurementOrdere d By: Romain Griffin on 11-04-2023 Phosphorus Level 3.2 mg/dL 2.5-4.9 [facility] Serum or plasma iron saturat ion measurement (mass fraction)Ordered By: Romain Griffin on 11-04-2023 Iron saturation [Mass fraction] 19.0 % 15.0-55.0 [facility] TIBCOrdered By: Romain Griffin on 11-04-2023 Total Iron Binding Capacity 211 ug/dL Low 250-450 [facility] No Panel InformationOrdered By: Romain Griffin on 08-19-2023 Miscellaneous Test Comment SEE SCANNED REPORT [facility] Absolute lymphocyte countOrd ered By: Romain Griffin on 08-11-2023 Lymphocytes Auto (Unsp spec) [#/Vol] 1.05 10*3/uL 0.83-4.51 [facility] Automated lymphocyte count a s percentage of total leukocytesOrdered By: Romain Griffin on 08-11-2023 Lymphocytes/100 WBC Auto (Unsp spec) 14.2 % 19-41 [facility] Basophil percentageOrdered B y: Romain Griffin on 08-11-2023 Basophils/100 WBC (Bld) 1.1 % 0-1 [facility] Bilirubin [Mass/Vol] 0.30 mg/dL 0.20-1.00 [facility] Comment on above: For patients on eltr ombopag therapy, use of Dimension [place] TBIL is not recommended. Chloride [Moles/Vol] 106 mmol/L 98-107 [facility] Cholesterol [Mass/Vol] 234 mg/dL High <200 [facility] Comment on above: <200 mg/dL Desirable 200-240 mg/dL Borderline >240 mg/dL High Risk Eosinophils/100 WBC (Bld) 3.4 % 0-5 [facility] Glucose [Mass/Vol] 101 mg/dL 74-106 [facility] Comment on above: Fasting Glucose resu lt from 100 to 125 mg/dL suggests IMPAIRED HOMEOSTASIS per A.D.A. criteria. Hemoglobin (Bld) [Mass/Vol] 12.5 g/dL 12.0-15.0 [facility] LDH [Catalytic activity/Vol] 202 U/L 84-246 [facility] Monocytes/100 WBC (Bld) 7.0 % 0-10 [facility] Neutrophils (Bld) [#/Vol] 5.5 10*3/uL 2.0-7.7 [facility] Neutrophils/100 WBC (Bld) 74.0 % 47-70 [facility] Potassium [Moles/Vol] 3.6 mmol/L 3.5-5.1 [facility] Protein [Mass/Vol] 7.5 g/dL 6.4-8.2 [facility] Sodium [Moles/Vol] 142 mmol/L 136-145 [facility] Triglyceride [Mass/Vol] 102 mg/dL <199 [facility] Comment on above: The drugs N-Acetylcy steine and Metamizole may falsely depress this assay.Serum Triglycerides Reference Interval Normal <150 mg/dL Borderline high 150 - 199 mg/dL High 200 - 499 mg/dL Very High > or = 500 mg/dL WBC (Bld) [#/Vol] 7.4 10*3/uL 4.4-11.0 [facility] Determination of erythrocyte mean corpuscular volume (MCV)Ordered By: Romain Griffin on 08-11-2023 MCV (RBC) [Entitic vol] 90.8 fL 81-99 [facility] Erythrocyte distribution wid th ratioOrdered By: Romain Griffin on 08-11-2023 Erythrocyte distribution width (RBC) [Ratio] 12.8 % 11.6-14.6 [facility] Erythrocyte distribution wid th standard deviationOrdered By: Romain Griffin on 08-11-2023 Erythrocyte distribution width (RBC) [Entitic vol] 41.7 fL 35.1-43.9 [facility] [employer] mix RAST testO rdered By: Romain Griffin on 08-11-2023 Urine Random Microalbumin 18.0 mg/L NO RANGE EST. [facility] Hematocrit Auto (Bld) [Volum e fraction]Ordered By: Austin Elias on 08-11-2023 Hematocrit (Bld) [Volume fraction] 39.4 % 37-47 [facility] Immature granulocytes/100 WB C Auto (Bld)Ordered By: Romain Griffin on 08-11-2023 Immature granulocytes/100 WBC (Bld) 0.300 % 0.0-0.9 [facility] Comment on above: IG% - Immature Granu locytes (promyelocytes, myelocytes and metamyelocytes) > 1% indicates that a LEFT SHIFT is Present. Laboratory - Chemistry and C hemistry - challengeOrdered By: Romain Griffin on 08-11-2023 Albumin/Globulin [Mass ratio] 1.3 {ratio} 0.9-2.4 [facility] ALP [Catalytic activity/Vol] 92 U/L 45-117 [facility] ALT [Catalytic activity/Vol] 20 U/L 13-56 [facility] Cholesterol in HDL [Mass/Vol] 54 mg/dL >40 [facility] Comment on above: The drugs N-Acetylcy steine and Metamizole may falsely depress this assay. Reference Range HDL <40 mg/dL Low HDL Cholesterol HDL >or= 60 mg/dL High HDL Cholesterol Cholesterol in LDL [Mass/Vol] 160 mg/dL High 0-130 [facility] CO2 [Moles/Vol] 29.0 mmol/L 21.0-32.0 [facility] Globulin (S) [Mass/Vol] 3.3 g/dL 2.2-4.2 [facility] Urea nitrogen/Creatinine [Mass ratio] 17.3 mg/mg 10-20 [facility] Laboratory - Hematology and Cell countsOrdered By: Romain Griffin on 08-11-2023 MCH (RBC) [Entitic mass] 28.8 pg 27.0-32.0 [facility] MCHC (RBC) [Mass/Vol] 31.7 g/dL 32-36 [facility] Nucleated RBC/100 WBC (Bld) [Ratio] 0 % 0-5 [facility] Platelet mean volume (Bld) [Entitic vol] 8.8 fL 6.2-12.0 [facility] Platelets (Bld) [#/Vol] 291 10*3/uL 150-450 [facility] No Panel InformationOrdered By: Romain Griffin on 08-11-2023 Estimated GFR (MDRD) Amer 72 mL/min >60 [facility] Comment on above: GFR Calc Estimated GFR (MDRD) Non-Af Amer 59 mL/min >60 [facility] Comment on above: Non- GFR Calc Urine Microalbumin/Creatinine Ratio 19.2 mg/g CRE <30 [facility] Vitamin D 25-Hydroxy 37.0 ng/mL [facility] Comment on above: Vitamin D 25(OH) Sta tus Range Deficiency <20 ng/mL (50nmol/L) Insufficiency 20 - 30 ng/mL (50 - 75 nmol/L) Sufficiency 30 - 100 ng/mL (75 - 250 nmol/L) Toxicity >100 ng/mL (>250 nmol/L) VLDL Cholesterol 20 mg/dL 5-40 [facility] Plasma renin measurement (en zymatic activity/volume)Ordered By: Romain Griffin on 08-11-2023 Renin (P) [Catalytic activity/Vol] 0.442 ng/mL/hr 0.167-5.380 [facility] Comment on above: Performed at: [facility] [id number] [place], [place] [id number] Director: Darius Andrade MD, Phone: [phone] RBC Auto (Bld) [#/Vol]Ordere d By: Romain Griffin on 08-11-2023 RBC (Bld) [#/Vol] 4.34 10*6/uL 4.2-5.4 [facility] Renin (P) [Catalytic activit y/Vol]Ordered By: Romain Griffin on 08-11-2023 Renin 0.442 ng/mL/hr 0.167-5.380 [facility] Comment on above: Performed at: [employer] [id number] Director: Darius Andrade MD, Phone: [phone] Serum or plasma calcium javon urement (mass/volume)Ordered By: Romain Griffin on 08-11-2023 Calcium [Mass/Vol] 9.4 mg/dL 8.5-10.1 [facility] Serum or plasma creatinine m easurement (mass/volume)Ordered By: Romain Griffin on 08-11-2023 Creatinine [Mass/Vol] 0.98 mg/dL 0.55-1.02 [facility] Comment on above: The validity of the calculated GFR & GFRAA in patients over 70 years has not been determined. Clinical correlation is essential. Serum or plasma urea nitroge n measurement (mass/volume)Ordered By: Romain Griffin on 08-11-2023 Urea nitrogen [Mass/Vol] 17 mg/dL 7-18 [facility] Thin prep Papanicolaou smear with manual screeningOrdered By: Romain Griffin on 08-11-2023 Thin prep Papanicolaou smear with manual screening 4.2 g/dL 3.2-5.0 [facility] Thin prep Papanicolaou smear with manual screening 16 U/L 15-37 [facility] Thin prep Papanicolaou smear with manual screening 7 5-15 [facility] Thin prep Papanicolaou smear with manual screening 18.0 mg/L NO RANGE EST. [facility] Urine creatinine measurement (mass/volume)Ordered By: Roamin Griffin on 08-11-2023 Creatinine (U) [Mass/Vol] 93.90 mg/dL NO RANGE EST. [facility] Absolute lymphocyte countOrd ered By: Bul Kraus on 07-23-2023 Lymphocytes Auto (Unsp spec) [#/Vol] 0.85 10*3/uL 0.83-4.51 [facility] Automated lymphocyte count a s percentage of total leukocytesOrdered By: Blu Kraus on 07-23-2023 Lymphocytes/100 WBC Auto (Unsp spec) 10.6 % 19-41 [facility] Basophil percentageOrdered B y: Blu Kraus on 07-23-2023 Basophils/100 WBC (Bld) 0.2 % 0-1 [facility] Chloride [Moles/Vol] 108 mmol/L 98-107 [facility] Eosinophils/100 WBC (Bld) 0.0 % 0-5 [facility] Glucose [Mass/Vol] 124 mg/dL 74-106 [facility] Comment on above: Fasting Glucose resu lt from 100 to 125 mg/dL suggests IMPAIRED HOMEOSTASIS per A.D.A. criteria. Hemoglobin (Bld) [Mass/Vol] 11.2 g/dL 12.0-15.0 [facility] Monocytes/100 WBC (Bld) 8.0 % 0-10 [facility] Neutrophils (Bld) [#/Vol] 6.5 10*3/uL 2.0-7.7 [facility] Neutrophils/100 WBC (Bld) 81.0 % 47-70 [facility] Potassium [Moles/Vol] 4.0 mmol/L 3.5-5.1 [facility] Sodium [Moles/Vol] 138 mmol/L 136-145 [facility] WBC (Bld) [#/Vol] 8.0 10*3/uL 4.4-11.0 [facility] Determination of erythrocyte mean corpuscular volume (MCV)Ordered By: Blu Kraus on 07-23-2023 MCV (RBC) [Entitic vol] 93.3 fL 81-99 [facility] Erythrocyte distribution wid th ratioOrdered By: Blu Kraus on 07-23-2023 Erythrocyte distribution width (RBC) [Ratio] 12.9 % 11.6-14.6 [facility] Erythrocyte distribution wid th standard deviationOrdered By: Blu Kraus on 07-23-2023 Erythrocyte distribution width (RBC) [Entitic vol] 44.0 fL 35.1-43.9 [facility] Hematocrit Auto (Bld) [Volum e fraction]Ordered By: Blu Kraus on 07-23-2023 Hematocrit (Bld) [Volume fraction] 36.2 % 37-47 [facility] Immature granulocytes/100 WB C Auto (Bld)Ordered By: Blu Kraus on 07-23-2023 Immature granulocytes/100 WBC (Bld) 0.200 % 0.0-0.9 [facility] Comment on above: IG% - Immature Granu locytes (promyelocytes, myelocytes and metamyelocytes) > 1% indicates that a LEFT SHIFT is Present. Laboratory - Chemistry and C hemistry - challengeOrdered By: Blu Kraus on 07-23-2023 CO2 [Moles/Vol] 26.0 mmol/L 21.0-32.0 [facility] Urea nitrogen/Creatinine [Mass ratio] 19.6 mg/mg 10-20 [facility] Laboratory - Hematology and Cell countsOrdered By: Blu Kraus on 07-23-2023 MCH (RBC) [Entitic mass] 28.9 pg 27.0-32.0 [facility] MCHC (RBC) [Mass/Vol] 30.9 g/dL 32-36 [facility] Nucleated RBC/100 WBC (Bld) [Ratio] 0 % 0-5 [facility] Platelets (Bld) [#/Vol] 224 10*3/uL 150-450 [facility] No Panel InformationOrdered By: Blu Kraus on 07-23-2023 Estimated Creatinine Clearance Calc 58.62 ml/min [facility] Estimated GFR (MDRD) Amer 73 mL/min >60 [facility] Comment on above: GFR Calc Estimated GFR (MDRD) Non-Af Amer 60 mL/min >60 [facility] Comment on above: Non- GFR Calc Platelet mean volume Gage-Ec ker (Bld) [Entitic vol]Ordered By: Blu Kraus on 07-23-2023 Platelet mean volume (Bld) [Entitic vol] 8.5 fL 6.2-12.0 [facility] RBC Auto (Bld) [#/Vol]Ordere d By: Blu Kraus on 07-23-2023 RBC (Bld) [#/Vol] 3.88 10*6/uL 4.2-5.4 [facility] Serum or plasma calcium javon urement (mass/volume)Ordered By: Blu Kraus on 07-23-2023 Calcium [Mass/Vol] 8.3 mg/dL 8.5-10.1 [facility] Serum or plasma creatinine m easurement (mass/volume)Ordered By: Blu Kraus on 07-23-2023 Creatinine [Mass/Vol] 0.97 mg/dL 0.55-1.02 [facility] Comment on above: The validity of the calculated GFR & GFRAA in patients over 70 years has not been determined. Clinical correlation is essential. Serum or plasma urea nitroge n measurement (mass/volume)Ordered By: Blu Kraus on 07-23-2023 Urea nitrogen [Mass/Vol] 19 mg/dL 7-18 [facility] Thin prep Papanicolaou smear with manual screeningOrdered By: Blu Kraus on 07-23-2023 Thin prep Papanicolaou smear with manual screening 4 5-15 [facility] Basophil percentageOrdered B y: Romain Griffin on 07-20-2023 Bilirubin [Mass/Vol] 0.50 mg/dL 0.20-1.00 [facility] Comment on above: For patients on eltr ombopag therapy, use of Dimension [place] TBIL is not recommended. LDH [Catalytic activity/Vol] 186 U/L 84-246 [facility] Protein [Mass/Vol] 6.9 g/dL 6.4-8.2 [facility] Laboratory - Chemistry and C hemistry - challengeOrdered By: Romain Griffin on 07-20-2023 Albumin/Globulin [Mass ratio] 1.2 {ratio} 0.9-2.4 [facility] ALP [Catalytic activity/Vol] 78 U/L 45-117 [facility] ALT [Catalytic activity/Vol] 20 U/L 13-56 [facility] Globulin (S) [Mass/Vol] 3.2 g/dL 2.2-4.2 [facility] Thin prep Papanicolaou smear with manual screeningOrdered By: Romain Griffin on 07-20-2023 Thin prep Papanicolaou smear with manual screening 3.7 g/dL 3.2-5.0 [facility] Thin prep Papanicolaou smear with manual screening 16 U/L 15-37 [facility] Basophil percentageOrdered B y: Romain Griffin on 06-07-2023 Basophil percentage < 1.0 mg/dL 0.55-1.02 [facility] No Panel InformationOrdered By: Romain Griffin on 06-07-2023 Bedside Estimated GFR (eGFR) > 60.0000 mL/min >60 [facility] Basophil percentageOrdered B y: Chiquis Azul on 02-25-2023 Bilirubin [Mass/Vol] 0.40 mg/dL 0.20-1.00 [facility] Comment on above: For patients on eltr ombopag therapy, use of Dimension [place] TBIL is not recommended. Chloride [Moles/Vol] 109 mmol/L 98-107 [facility] Cholesterol [Mass/Vol] 194 mg/dL <200 [facility] Comment on above: <200 mg/dL Desirable 200-240 mg/dL Borderline >240 mg/dL High Risk Glucose [Mass/Vol] 96 mg/dL 74-106 [facility] Potassium [Moles/Vol] 4.0 mmol/L 3.5-5.1 [facility] Protein [Mass/Vol] 7.2 g/dL 6.4-8.2 [facility] Sodium [Moles/Vol] 142 mmol/L 136-145 [facility] Triglyceride [Mass/Vol] 119 mg/dL <199 [facility] Comment on above: The drugs N-Acetylcy steine and Metamizole may falsely depress this assay.Serum Triglycerides Reference Interval Normal <150 mg/dL Borderline high 150 - 199 mg/dL High 200 - 499 mg/dL Very High > or = 500 mg/dL WBC (Bld) [#/Vol] 4.3 10*3/uL 4.4-11.0 [facility] Blood erythrocytes count (nu mber/volume)Ordered By: Chiquis Azul on 02-25-2023 RBC (Bld) [#/Vol] 4.64 10*6/uL 4.2-5.4 [facility] Blood hemoglobin measurement (mass/volume)Ordered By: Chiquis Azul on 02-25-2023 Hemoglobin (Bld) [Mass/Vol] 13.4 g/dL 12.0-15.0 [facility] Blood platelet mean volumeOr dered By: Chiquis Azul on 02-25-2023 Platelet mean volume (Bld) [Entitic vol] 9.1 fL 6.2-12.0 [facility] Determination of erythrocyte mean corpuscular volume (MCV)Ordered By: Chiquis Azul on 02-25-2023 MCV (RBC) [Entitic vol] 89.2 fL 81-99 [facility] Hematocrit Auto (Bld) [Volum e fraction]Ordered By: Chiquis Azul on 02-25-2023 Hematocrit (Bld) [Volume fraction] 41.4 % 37-47 [facility] Laboratory - Chemistry and C hemistry - challengeOrdered By: Chiquis Azul on 02-25-2023 ALP [Catalytic activity/Vol] 80 U/L 45-117 [facility] ALT [Catalytic activity/Vol] 26 U/L 13-56 [facility] CO2 [Moles/Vol] 29.0 mmol/L 21.0-32.0 [facility] Globulin (S) [Mass/Vol] 3.2 g/dL 2.2-4.2 [facility] Urea nitrogen/Creatinine [Mass ratio] 16.0 mg/mg 10-20 [facility] Laboratory - Hematology and Cell countsOrdered By: Chiquis Azul on 02-25-2023 Erythrocyte distribution width (RBC) [Entitic vol] 43.9 fL 35.1-43.9 [facility] Erythrocyte distribution width (RBC) [Ratio] 13.5 % 11.6-14.6 [facility] MCH (RBC) [Entitic mass] 28.9 pg 27.0-32.0 [facility] MCHC Auto (RBC) [Mass/Vol]Or dered By: Chiquis Azul on 02-25-2023 MCHC (RBC) [Mass/Vol] 32.4 g/dL 32-36 [facility] No Panel InformationOrdered By: Chiquis Azul on 02-25-2023 Anti-Nuclear Antibody Screen Negative Negative [facility] Comment on above: Performed at: [facility] [employer] [address] [id number] Director: Ton Brown PhD, Phone: [phone] Estimated GFR (MDRD) Amer 71 mL/min >60 [facility] Comment on above: GFR Calc Estimated GFR (MDRD) Non-Af Amer 58 mL/min >60 [facility] Comment on above: Non- GFR Calc Parathyroid Hormone (Intact) 73.9 pg/mL 18.4-80.1 [facility] Vitamin D 25-Hydroxy 37.9 ng/mL [facility] Comment on above: Vitamin D 25(OH) Sta tus Range Deficiency <20 ng/mL (50nmol/L) Insufficiency 20 - 30 ng/mL (50 - 75 nmol/L) Sufficiency 30 - 100 ng/mL (75 - 250 nmol/L) Toxicity >100 ng/mL (>250 nmol/L) Plasma renin measurement (en zymatic activity/volume)Ordered By: Chiquis Azul on 02-25-2023 Renin (P) [Catalytic activity/Vol] 0.379 ng/mL/hr 0.167-5.380 [facility] Comment on above: Performed at: [facility] [employer] [address] [id number] Director: Darius Andrade MD, Phone: [phone] Platelets bldOrdered By: Myke Azul on 02-25-2023 Platelets (Bld) [#/Vol] 268 10*3/uL 150-450 [facility] Serum or plasma albumin javon urement (mass/volume)Ordered By: Chiquis Azul on 02-25-2023 Albumin [Mass/Vol] 4.0 g/dL 3.2-5.0 [facility] Serum or plasma albumin/glob ulin mass ratioOrdered By: Chiquis Azul on 02-25-2023 Albumin/Globulin [Mass ratio] 1.2 {ratio} 0.9-2.4 [facility] Serum or plasma calcium javon urement (mass/volume)Ordered By: Chiquis Azul on 02-25-2023 Calcium [Mass/Vol] 8.9 mg/dL 8.5-10.1 [facility] Serum or plasma cholesterol in HDL measurement (mass/volume)Ordered By: Chiquis Azul on 02-25-2023 Cholesterol in HDL [Mass/Vol] 52 mg/dL >40 [facility] Comment on above: The drugs N-Acetylcy steine and Metamizole may falsely depress this assay. Reference Range HDL <40 mg/dL Low HDL Cholesterol HDL >or= 60 mg/dL High HDL Cholesterol Serum or plasma cholesterol in VLDL measurement (mass/volume)Ordered By: Chiquis Azul on 02-25-2023 Cholesterol in VLDL [Mass/Vol] 24 mg/dL 5-40 [facility] Serum or plasma creatinine m easurement (mass/volume)Ordered By: Chiquis Azul on 02-25-2023 Creatinine [Mass/Vol] 1.00 mg/dL 0.55-1.02 [facility] Comment on above: The validity of the calculated GFR & GFRAA in patients over 70 years has not been determined. Clinical correlation is essential. Serum or plasma low density lipoprotein (LDL) cholesterol measurement (mass/volume)Ordered By: Chiquis Azul on 02-25-2023 Cholesterol in LDL [Mass/Vol] 118 mg/dL 0-130 [facility] Serum or plasma urea nitroge n measurement (mass/volume)Ordered By: Chiquis Azul on 02-25-2023 Urea nitrogen [Mass/Vol] 16 mg/dL 7-18 [facility] Thin prep Papanicolaou smear with manual screeningOrdered By: Chiquis Azul on 02-25-2023 Thin prep Papanicolaou smear with manual screening 18 U/L 15-37 [facility] Thin prep Papanicolaou smear with manual screening 4 5-15 [facility] Basophil percentageOrdered B y: Chiquis Azul on 09-01-2022 Bilirubin [Mass/Vol] 0.60 mg/dL 0.20-1.00 [facility] Comment on above: For patients on eltr ombopag therapy, use of Dimension [place] TBIL is not recommended. Chloride [Moles/Vol] 106 mmol/L 98-107 [facility] Cholesterol [Mass/Vol] 195 mg/dL <200 [facility] Comment on above: <200 mg/dL Desirable 200-240 mg/dL Borderline >240 mg/dL High Risk Glucose [Mass/Vol] 95 mg/dL 74-106 [facility] Potassium [Moles/Vol] 3.9 mmol/L 3.5-5.1 [facility] Protein [Mass/Vol] 7.2 g/dL 6.4-8.2 [facility] Sodium [Moles/Vol] 140 mmol/L 136-145 [facility] Triglyceride [Mass/Vol] 104 mg/dL <199 [facility] Comment on above: The drugs N-Acetylcy steine and Metamizole may falsely depress this assay.Serum Triglycerides Reference Interval Normal <150 mg/dL Borderline high 150 - 199 mg/dL High 200 - 499 mg/dL Very High > or = 500 mg/dL WBC (Bld) [#/Vol] 4.3 10*3/uL 4.4-11.0 [facility] Blood erythrocytes count (nu mber/volume)Ordered By: Chiquis Azul on 09-01-2022 RBC (Bld) [#/Vol] 4.48 10*6/uL 4.2-5.4 [facility] Blood hemoglobin measurement (mass/volume)Ordered By: Chiquis Azul on 09-01-2022 Hemoglobin (Bld) [Mass/Vol] 13.3 g/dL 12.0-15.0 [facility] Blood platelet mean volumeOr dered By: Chiquis Azul on 09-01-2022 Platelet mean volume (Bld) [Entitic vol] 9.1 fL 6.2-12.0 [facility] Determination of erythrocyte mean corpuscular volume (MCV)Ordered By: Chiquis Azul on 09-01-2022 MCV (RBC) [Entitic vol] 91.3 fL 81-99 [facility] Hematocrit Auto (Bld) [Volum e fraction]Ordered By: Chiquis Azul on 09-01-2022 Hematocrit (Bld) [Volume fraction] 40.9 % 37-47 [facility] Laboratory - Chemistry and C hemistry - challengeOrdered By: Chiquis Azul on 09-01-2022 ALP [Catalytic activity/Vol] 86 U/L 45-117 [facility] ALT [Catalytic activity/Vol] 21 U/L 13-56 [facility] CO2 [Moles/Vol] 29.0 mmol/L 21.0-32.0 [facility] Globulin (S) [Mass/Vol] 3.5 g/dL 2.2-4.2 [facility] Urea nitrogen/Creatinine [Mass ratio] 20.2 mg/mg 10-20 [facility] - Hematology and Cell countsOrdered By: Chiquis Azul on 09-01-2022 Erythrocyte distribution width (RBC) [Entitic vol] 42.8 fL 35.1-43.9 [facility] Erythrocyte distribution width (RBC) [Ratio] 12.9 % 11.6-14.6 [facility] MCH (RBC) [Entitic mass] 29.7 pg 27.0-32.0 [facility] MCHC Auto (RBC) [Mass/Vol]Or dered By: Chiquis Azul on 09-01-2022 MCHC (RBC) [Mass/Vol] 32.5 g/dL 32-36 [facility] No Panel InformationOrdered By: Chiquis Azul on 09-01-2022 Anti-Nuclear Antibody Screen Positive Negative [facility] Comment on above: Performed at: [address] Director: Ton Brown PhD, Phone: [phone] Estimated GFR (MDRD) Amer 76 mL/min >60 [facility] Comment on above: GFR Calc Estimated GFR (MDRD) Non-Af Amer 63 mL/min >60 [facility] Comment on above: Non- GFR Calc Platelets bldOrdered By: Myke Azul on 09-01-2022 Platelets (Bld) [#/Vol] 236 10*3/uL 150-450 [facility] Serum or plasma albumin javon urement (mass/volume)Ordered By: Chiquis Azul on 09-01-2022 Albumin [Mass/Vol] 3.7 g/dL 3.2-5.0 [facility] Serum or plasma albumin/glob ulin mass ratioOrdered By: Chiquis Azul on 09-01-2022 Albumin/Globulin [Mass ratio] 1.1 {ratio} 0.9-2.4 [facility] Serum or plasma calcium javon urement (mass/volume)Ordered By: Chiquis Azul on 09-01-2022 Calcium [Mass/Vol] 8.9 mg/dL 8.5-10.1 [facility] Serum or plasma cholesterol in HDL measurement (mass/volume)Ordered By: Chiquis Azul on 09-01-2022 Cholesterol in HDL [Mass/Vol] 48 mg/dL >40 [facility] Comment on above: The drugs N-Acetylcy steine and Metamizole may falsely depress this assay. Reference Range HDL <40 mg/dL Low HDL Cholesterol HDL >or= 60 mg/dL High HDL Cholesterol Serum or plasma cholesterol in VLDL measurement (mass/volume)Ordered By: Chiquis Azul on 09-01-2022 Cholesterol in VLDL [Mass/Vol] 21 mg/dL 5-40 [facility] Serum or plasma creatinine m easurement (mass/volume)Ordered By: Chiquis Azul on 09-01-2022 Creatinine [Mass/Vol] 0.94 mg/dL 0.55-1.02 [facility] Comment on above: The validity of the calculated GFR & GFRAA in patients over 70 years has not been determined. Clinical correlation is essential. Serum or plasma low density lipoprotein (LDL) cholesterol measurement (mass/volume)Ordered By: Chiquis Azul on 09-01-2022 Cholesterol in LDL [Mass/Vol] 126 mg/dL 0-130 [facility] Serum or plasma urea nitroge n measurement (mass/volume)Ordered By: Chiquis Azul on 09-01-2022 Urea nitrogen [Mass/Vol] 19 mg/dL 7-18 [facility] Thin prep Papanicolaou smear with manual screeningOrdered By: Chiquis Azul on 09-01-2022 Thin prep Papanicolaou smear with manual screening 17 U/L 15-37 [facility] Thin prep Papanicolaou smear with manual screening 5 5-15 [facility] XR Chest PA and Lateralon IMPRESSION: Overall unremarkable exam with no acute radiographic abnormality. Cardiac Tech: BRENDON Transcribe Date/Time: Jun 07 2022 4:53P Dictated by : RAFIA NUGENT MD This examination was interpreted and the report reviewed and electronically signed by: RAFIA NUGENT MD on Jun 07 2022 4:53PM [facility] DIVISION OF RADIOLOGY * * *Final Report* * * DATE OF EXAM: Jun 05 2022 2:29PM WOX 5291 - XR CHEST 2V FRONTAL/LAT / PROCEDURE REASON: Anal cancer (HCC) * * * * Physician Interpretation * * * * EXAMINATION: CHEST RADIOGRAPH (2 VIEW FRONTAL & LATERAL) CLINICAL HISTORY: Anal cancer (HCC) MQ: XC2_6 EXAM DATE/TIME: 06/05/2022 2:29 PM COMPARISON: No relevant prior studies available. RESULT: Lines, tubes, and devices: None. Lungs and pleura: No consolidation. No lung mass. No pleural effusion. No pneumothorax. Cardiomediastinal silhouette: Normal cardiomediastinal silhouette. Bones and soft tissues: There are mild degenerative changes involving the lower thoracic spine. DIVISION OF RADIOLOGY Provider, [facility] - 06/07/2022 * * *Final Report* * * DATE OF EXAM: Jun 05 2022 2:29PM WOX 5291 - XR CHEST 2V FRONTAL/LAT / PROCEDURE REASON: Anal cancer (HCC) * * * * Physician Interpretation * * * * EXAMINATION: CHEST RADIOGRAPH (2 VIEW FRONTAL & LATERAL) CLINICAL HISTORY: Anal cancer (HCC) MQ: XC2_6 EXAM DATE/TIME: 06/05/2022 2:29 PM COMPARISON: No relevant prior studies available. RESULT: Lines, tubes, and devices: None. Lungs and pleura: No consolidation. No lung mass. No pleural effusion. No pneumothorax. Cardiomediastinal silhouette: Normal cardiomediastinal silhouette. Bones and soft tissues: There are mild degenerative changes involving the lower thoracic spine. IMPRESSION IMPRESSION: Overall unremarkable exam with no acute radiographic abnormality. Cardiac Tech: PSCB Transcribe Date/Time: Jun 07 2022 4:53P Dictated by : RAFIA NUGENT MD This examination was interpreted and the report reviewed and electronically signed by: RAFIA NUGENT MD on Jun 07 2022 4:53PM [facility] XR Chest PA and LateralOrder ed By: [facility] Provider on 06-07-2022 [facility] CBC W Auto Differential pane l (Bld)on 06-05-2022 Basophils (Bld) [#/Vol] 0.13 10*3/uL High <0.11 [facility] Comment on above: Order Comment: Speci men Type: BLOOD SPECIMEN Ordering Facility: [facility] Address: [address] [place], [place] [address] Performed By: #### 5 7021-8 #### [facility] CLIA [id number] [address] [place] [address] [place] [facility] CLIA [id number] [address] [place] [address] [place] Basophils/100 WBC (Bld) 2.0 % Normal C [facility] Comment on above: Order Comment: Speci men Type: BLOOD SPECIMEN Ordering Facility: [facility] Address: [address] [place] [address] Performed By: #### 5 7021-8 #### [facility] CLIA [id number] [address] [place] [address] [place] [facility] CLIA [id number] [address] [place] [address] [place] Differential cell count method Nom (Bld) Manual Normal [facility] Comment on above: Order Comment: Speci men Type: BLOOD SPECIMEN Ordering Facility: [facility] Address: [address] [place], [place] [address] Performed By: #### 5 7021-8 #### [facility] CLIA [id number] [address] [place] [address] [place] [facility] CLIA [id number] [address] [place] [address] [place] Eosinophils (Bld) [#/Vol] 0.07 10*3/uL Normal <0.46 [facility] Comment on above: Order Comment: Speci men Type: BLOOD SPECIMEN Ordering Facility: [facility] Address: [address] [place], [place] [address] Performed By: #### 5 7021-8 #### [facility] CLIA [id number] [address] [place] [address] [place] [facility] CLIA [id number] [address] [place] [address] [place] Eosinophils/100 WBC (Bld) 1.0 % Normal [facility] Comment on above: Order Comment: Speci men Type: BLOOD SPECIMEN Ordering Facility: [facility] Address: [address] Performed By: #### 5 7021-8 #### [facility] CLIA [id number] [address] [place] [address] [place] [facility] CLIA [id number] [address] [place] [address] [place] Erythrocyte distribution width (RBC) [Ratio] 13.2 % Normal 11.5-15.0 [facility] Comment on above: Order Comment: Speci men Type: BLOOD SPECIMEN Ordering Facility: [facility] Address: [address] Performed By: #### 5 7021-8 #### [facility] CLIA [id number] [address] [place] [address] [place] [facility] CLIA [id number] [address] [place] [address] [place] Hematocrit (Bld) [Volume fraction] 42.6 % Normal 36.0-46.0 [facility] Comment on above: Order Comment: Speci men Type: BLOOD SPECIMEN Ordering Facility: [facility] Address: [address] Performed By: #### 5 7021-8 #### [facility] CLIA [id number] [address] [place] [address] [place] [facility] CLIA [id number] [address] [place] [address] [place] Hemoglobin (Bld) [Mass/Vol] 13.8 g/dL Normal 11.5-15.5 [facility] Comment on above: Order Comment: Speci men Type: BLOOD SPECIMEN Ordering Facility: [facility] Address: [address] [place] [address] Performed By: #### 5 7021-8 #### [facility] CLIA [id number] [address] [place] [address] [place] [facility] CLIA [id number] [facility] [place] [address] [place] Lymphocytes (Bld) [#/Vol] 1.85 10*3/uL Normal 1.00-4.00 [facility] Comment on above: Order Comment: Speci men Type: BLOOD SPECIMEN Ordering Facility: [facility] Address: [address] [place] [address] Performed By: #### 5 7021-8 #### [facility] CLIA [id number] [address] [place] [address] [place] [facility] CLIA [id number] [address] [place] [address] [place] Lymphocytes/100 WBC (Bld) 28.0 % Normal [facility] Comment on above: Order Comment: Speci men Type: BLOOD SPECIMEN Ordering Facility: [facility] Address: [address] [place], [place] [address] Performed By: #### 5 7021-8 #### [facility] CLIA [id number] [address] [place] [address] [place] [facility] CLIA [id number] [address] [place] [address] [place] MCH (RBC) [Entitic mass] 29.2 pg Normal 26.0-34.0 [facility] Comment on above: Order Comment: Speci men Type: BLOOD SPECIMEN Ordering Facility: [facility] Address: [address] Performed By: #### 5 7021-8 #### [facility] CLIA [id number] [address] [place] [address] [place] [facility] CLIA [id number] [address] [place] [address] [place] MCHC (RBC) [Mass/Vol] 32.4 g/dL Normal 30.5-36.0 [facility] Comment on above: Order Comment: Speci men Type: BLOOD SPECIMEN Ordering Facility: [facility] Address: [address] Performed By: #### 5 7021-8 #### [facility] CLIA [id number] [address] [place] [address] [place] [facility] CLIA [id number] [facility] [place] [address] [place] MCV (RBC) [Entitic vol] 90.1 fL Normal 80.0-100.0 [facility] Comment on above: Order Comment: Speci men Type: BLOOD SPECIMEN Ordering Facility: [facility] Address: [address] Performed By: #### 5 7021-8 #### [facility] CLIA [id number] [address] [place] [address] [place] [facility] CLIA [id number] [address] [place] [address] [place] Monocytes (Bld) [#/Vol] 0.53 10*3/uL Normal <0.87 [facility] Comment on above: Order Comment: Speci men Type: BLOOD SPECIMEN Ordering Facility: [facility] Address: [address] [place] [address] Performed By: #### 5 7021-8 #### [facility] CLIA [id number] [address] [place] [address] [place] [facility] CLIA [id number] [address] [place] [address] [place] Monocytes/100 WBC (Bld) 8.0 % Normal C [facility] Comment on above: Order Comment: Speci men Type: BLOOD SPECIMEN Ordering Facility: [facility] Address: [address] Performed By: #### 5 7021-8 #### [facility] CLIA [id number] [address] [place] [address] [place] [facility] CLIA [id number] [address] [place] [address] [place] Neutrophils (Bld) [#/Vol] 4.03 10*3/uL Normal 1.45-7.50 [facility] Comment on above: Order Comment: Speci men Type: BLOOD SPECIMEN Ordering Facility: [facility] Address: [address] Performed By: #### 5 7021-8 #### [facility] CLIA [id number] [address] [place] [address] [place] [facility] CLIA [id number] [address] [place] [address] [place] Neutrophils/100 WBC (Bld) 61.0 % Normal [facility] Comment on above: Order Comment: Speci men Type: BLOOD SPECIMEN Ordering Facility: [facility] Address: [address] [place] [address] Performed By: #### 5 7021-8 #### [facility] CLIA [id number] [address] [place] [address] [place] [facility] CLIA [id number] [address] [place] [address] [place] Nucleated RBC (Bld) [#/Vol] 10*3/uL Normal <0.01 [facility] Comment on above: Order Comment: Speci men Type: BLOOD SPECIMEN Ordering Facility: [facility] Address: [address] [place] [address] Result Comment: This result was previously suppressed from the chart. Performed By: #### 5 7021-8 #### [facility] CLIA [id number] [address] [place] [address] [place] [facility] CLIA [id number] [address] [place] [address] [place] Nucleated RBC/100 WBC (Bld) [Ratio] 0.0 /100 WBC Normal [facility] Comment on above: Order Comment: Speci men Type: BLOOD SPECIMEN Ordering Facility: [facility] Address: [address] [place] [address] Performed By: #### 5 7021-8 #### [facility] CLIA [id number] [address] [place] [address] [place] [facility] CLIA [id number] [address] [place] [address] [place] Ovalocytes LM Ql (Bld) Few Normal [facility] Comment on above: Order Comment: Speci men Type: BLOOD SPECIMEN Ordering Facility: [facility] Address: [address] [place] [address] Performed By: #### 5 7021-8 #### [facility] CLIA [id number] [address] [place] [address] [place] [facility] CLIA [id number] [address] [place] [address] [place] Platelet clump LM Ql (Bld) Present Normal [facility] Comment on above: Order Comment: Speci men Type: BLOOD SPECIMEN Ordering Facility: [facility] Address: [address] [place] [address] Performed By: #### 5 7021-8 #### [facility] CLIA [id number] [address] [place] [address] [place] [facility] CLIA [id number] [address] [place] [address] [place] Platelet mean volume (Bld) [Entitic vol] Normal [facility] Comment on above: Order Comment: Speci men Type: BLOOD SPECIMEN Ordering Facility: [facility] Address: [address] Result Comment: Unab le to Report. Performed By: #### 5 7021-8 #### [facility] CLIA [id number] [address] [place] [address] [place] [facility] CLIA [id number] [facility] [place] [address] [place] Platelets (Bld) [#/Vol] Normal C [facility] Comment on above: Order Comment: Speci men Type: BLOOD SPECIMEN Ordering Facility: [facility] Address: [address] [place] [address] Result Comment: Plat elets Clumped Estimate Normal. Platelet count confirmed by manual review of peripheral blood smear. Performed By: #### 5 7021-8 #### [facility] CLIA [id number] [address] [place] [address] [place] [facility] CLIA [id number] [address] [place] [id number] [place] Platelets Estimate (Bld) [#/Vol] Adequate Normal [facility] Comment on above: Order Comment: Speci men Type: BLOOD SPECIMEN Ordering Facility: [facility] Address: [address] [place] [address] Performed By: #### 5 7021-8 #### [facility] CLIA [id number] [address] [place] [address] [place] [facility] CLIA [id number] [address] [place] [address] [place] RBC (Bld) [#/Vol] 4.73 10*6/uL Normal 3.90-5.20 [facility] Comment on above: Order Comment: Speci men Type: BLOOD SPECIMEN Ordering Facility: [facility] Address: [address] [place] [address] Performed By: #### 5 7021-8 #### [facility] CLIA [id number] [address] [place] [address] [place] [facility] CLIA [id number] [facility] [place] [address] [place] RED CELL MORPH Reviewed: see result s of individual morphologies Normal [facility] Comment on above: Order Comment: Speci men Type: BLOOD SPECIMEN Ordering Facility: [facility] Address: [address] [place] [address] Performed By: #### 5 7021-8 #### [facility] CLIA [id number] [address] [place] [address] [place] [facility] CLIA [id number] [address] [place] [address] [place] WBC (Bld) [#/Vol] 6.60 10*3/uL Normal 3.70-11.00 [facility] Comment on above: Order Comment: Speci men Type: BLOOD SPECIMEN Ordering Facility: [facility] Address: [address] [place] [address] Performed By: #### 5 7021-8 #### [facility] CLIA [id number] [address] [place] [address] [place] [facility] CLIA [id number] [address] [place] [address] [place] CEA SerPl-mCncon 06-05-2022 Carcinoembryonic Ag [Mass/Vol] 1.5 ng/mL Normal <=2.9 [facility] Comment on above: Order Comment: Speci men Type: BLOOD SPECIMEN Ordering Facility: [facility] Address: [address] [place], [place] [address] Result Comment: Carc inoembryonic antigen test is used as an aid in monitoring response to treatment or recurrence in patients with established colorectal, breast, lung, prostatic, pancreatic, and ovarian carcinomas. Clinical correlation is required. The Carcinoembryonic antigen test was performed using the [employer] DXI paramagnetic particle chemiluminescent immunoassay method. Results obtained with different assay methods or kits cannot be used interchangeably. Performed By: #### 2 039-6 #### [facility] CLIA [id number] [address] [place] [address] OF [facility] CNOVSPon 06-05-2022 CNOVSP Visit (SP) Office (ALEXA) CYNTHIA WALLACE ([id number]) 1955 F Date Time Provider Department 06/05/22 2:50 PM JULES MINER During your visit today, we recorded the following information about you: Temperature Pulse Blood pressure Weight 98.9 degrees 76/minute 137/83 91.6 kg Height 1.588 m Jules Miner MD 06/07/2022 8:36 AM Signed PATIENT NAME: Cynthia Wallace. CLINIC NO: [id number]. ATTENDING PHYSICIAN: Jules Miner MD. DATE OF [...] PULM: No dyspnea, unexplained cough. GI: No dysphagia/odynophagia , problematic reflux, constipation, diarrhea, changes in stool [...] Abs Lymph 1.00 - 4.00 k/uL 1.85 Collin% % 8.0 Abs Collin <0.87 k/uL 0.53 Eosin% % 1.0 Abs [...] 14 Glucose 74 - 99 mg/dL 99 (more content not included)... Normal [facility] Comprehensive metabolic 2000 panelon 06-05-2022 Albumin [Mass/Vol] 4.9 g/dL Normal 3.9-4.9 [facility] Comment on above: Order Comment: Speci men Type: BLOOD SPECIMEN Ordering Facility: [facility] Address: [address] [place] [address] Performed By: #### 2 4323-8 #### [id number] [address] [place] [address] [place] ALP [Catalytic activity/Vol] 99 U/L Normal 34-123 [facility] Comment on above: Order Comment: Speci men Type: BLOOD SPECIMEN Ordering Facility: [facility] Address: [address] [place] [address] Performed By: #### 2 4323-8 #### [facility] [id number] [address] [place] [address] [place] ALT [Catalytic activity/Vol] 14 U/L Normal 7-38 [facility] Comment on above: Order Comment: Speci men Type: BLOOD SPECIMEN Ordering Facility: [facility] Address: [address] [place] [address] Performed By: #### 2 4323-8 #### [facility] [id number] [address] [place] [address] [place] Anion gap [Moles/Vol] 10 mmol/L Normal 9-18 [facility] Comment on above: Order Comment: Speci men Type: BLOOD SPECIMEN Ordering Facility: [facility] Address: [address] Performed By: #### 2 4323-8 #### [facility] [id number] [address] [place] [address] [place] AST [Catalytic activity/Vol] 17 U/L Normal 13-35 [facility] Comment on above: Order Comment: Speci men Type: BLOOD SPECIMEN Ordering Facility: [facility] Address: [address] [place] [address] Performed By: #### 2 4323-8 #### [facility] CLIA [id number] [address] [place] [address] [place] Bilirubin [Mass/Vol] 0.2 mg/dL Normal 0.2-1.3 [facility] Comment on above: Order Comment: Speci men Type: BLOOD SPECIMEN Ordering Facility: [facility] Address: [address] [place] [address] Performed By: #### 2 4323-8 #### [facility] CLIA [id number] [address] [place] [address] [place] Calcium [Mass/Vol] 9.6 mg/dL Normal 8.5-10.2 [facility] Comment on above: Order Comment: Speci men Type: BLOOD SPECIMEN Ordering Facility: [facility] Address: [address] Performed By: #### 2 4323-8 #### [facility] CLIA [id number] [address] [place] [address] [place] Chloride [Moles/Vol] 100 mmol/L Normal 97-105 [facility] Comment on above: Order Comment: Speci men Type: BLOOD SPECIMEN Ordering Facility: [facility] Address: [address] [place] [address] Performed By: #### 2 4323-8 #### [facility] CLIA [id number] [address] [place] [address] [place] CO2 [Moles/Vol] 29 mmol/L Normal 22-30 [facility] Comment on above: Order Comment: Lisa dewitt Type: BLOOD SPECIMEN Ordering Facility: [facility] Address: [address] [place] [address] Performed By: #### 2 4323-8 #### [facility] [id number] [address] [place] [address] [place] Creatinine [Mass/Vol] 0.98 mg/dL High 0.58-0.96 [facility] Comment on above: Order Comment: Heidei men Type: BLOOD SPECIMEN Ordering Facility: [facility] Address: [address] [place] [address] Performed By: #### 2 4323-8 #### [facility] [id number] [address] [place] [address] [place] ESTIMATED GLOMERULAR FILTRATION RATE 63 mL/min/1.73m??? Normal >=60 [facility] Comment on above: Order Comment: Lisa dewitt Type: BLOOD SPECIMEN Ordering Facility: [facility] Address: [address] [place] [address] Result Comment: Yajaira mated Glomerular Filtration Rate (eGFR) is calculated using the 2020 CKD-EPI creatinine equation. This equation utilizes serum creatinine, sex, and age as parameters. The creatinine assay has traceable calibration to isotope dilution-mass spectrometry. Refer to KDIGO guidelines for clinical interpretation. In patients with unstable renal function, e.g. those with acute kidney injury, the eGFR may not accurately reflect actual GFR. Performed By: #### 2 4323-8 #### [facility] [id number] [address] [place] [address] [place] Glucose [Mass/Vol] 99 mg/dL Normal 74-99 [facility] Comment on above: Order Comment: Heidei men Type: BLOOD SPECIMEN Ordering Facility: [facility] Address: [address] [place] [address] Result Comment: The [place] Diabetes [employer] (ADA) provides guidance for cutoff values for fasting glucose and random glucose. The ADA defines fasting as no caloric intake for at least 8 hours. Fasting plasma glucose results between 100 to 125 mg/dL indicate increased risk for diabetes (prediabetes). Fasting plasma glucose results greater than or equal to 126 mg/dL meet the criteria for diagnosis of diabetes. In the absence of unequivocal hyperglycemia, results should be confirmed by repeat testing. In a patient with classic symptoms of hyperglycemia or hyperglycemic crisis, random plasma glucose results greater than or equal to 200 mg/dL meet the criteria for diagnosis of diabetes. Reference: Standards of Medical Care in Diabetes 2016, [place] [employer]. Diabetes Care. 2016.39(Suppl 1). Performed By: #### 2 4323-8 #### [facility] [id number] [address] [place] [address] [place] Potassium [Moles/Vol] 3.8 mmol/L Normal 3.7-5.1 [facility] Comment on above: Order Comment: Speci men Type: BLOOD SPECIMEN Ordering Facility: [facility] Address: [address] [place] [address] Performed By: #### 2 4323-8 #### [facility] [id number] [address] [place] [address] [place] Protein [Mass/Vol] 7.5 g/dL Normal 6.3-8.0 [facility] Comment on above: Order Comment: Speci men Type: BLOOD SPECIMEN Ordering Facility: [facility] Address: [address] [id number] Performed By: #### 2 4323-8 #### [facility] [id number] [address] [place] [address] [place] Sodium [Moles/Vol] 139 mmol/L Normal 136-144 [facility] Comment on above: Order Comment: Speci men Type: BLOOD SPECIMEN Ordering Facility: [facility] Address: [address] [id number] Performed By: #### 2 4323-8 #### [facility] CLIA [id number] [address] STATES OF [facility] Urea nitrogen [Mass/Vol] 14 mg/dL Normal 7-21 [facility] Comment on above: Order Comment: Speci men Type: BLOOD SPECIMEN Ordering Facility: [facility] Address: [place] [address] Performed By: #### 2 4323-8 #### [facility] CLIA [id number] [address] [place] XR CHEST 2V FRONTAL/LATon XR CHEST 2V FRONTAL/LAT * * *Final Repor t* * * DATE OF EXAM: Jun 05 2022 2:29PM WOX [id number] - XR CHEST 2V FRONTAL/LAT / PROCEDURE REASON: Anal cancer (HCC) * * * * Physician Interpretation * * * * EXAMINATION: CHEST RADIOGRAPH (2 VIEW FRONTAL and LATERAL) CLINICAL HISTORY: Anal cancer (HCC) MQ: XC2_6 EXAM DATE/TIME: 06/05/2022 2:29 PM COMPARISON: No relevant prior studies available. RESULT: Lines, tubes, and devices: None. Lungs and pleura: No consolidation. No lung mass. No pleural effusion. No pneumothorax. Cardiomediastinal silhouette: Normal cardiomediastinal silhouette. Bones and soft tissues: There are mild degenerative changes involving the lower thoracic spine. IMPRESSION: Overall unremarkable exam with no acute radiographic abnormality. Cardiac Tech: PSCB Transcribe Date/Time: Jun 07 2022 4:53P Dictated by : RAFIA NUGENT MD This examination was interpreted and the report reviewed and electronically signed by: RAFIA NUGENT MD on Jun 07 2022 4:53PM EST [id number] N Normal [facility] XR Chest PA and Lateralon Radiology Study observation (narrative) Radha martinez [facility] No Panel Informationon 02-25 Anti-Nuclear Antibody Screen Positive Negative [facility] Work Phone: Comment on above: Performed at: [address] [id number] Director: Ton Brown PhD, Phone: [phone] Serum or plasma C reactive p rotein measurement (mass/volume)on 02-25-2022 CRP [Mass/Vol] 7.60 mg/L 0.0-3.0 [facility] Work Phone: [phone] Comment on above: C-Reactive Protein ( CRP) provides useful information for thediagnosis, therapy and monitoring of inflammatory processesand associated diseases. For the evaluation of Relative Riskfor Cardiovascular Disease, a High Sensitivity CRP (HSCRP)should be ordered. Serum rheumatoid factor dete ctionon 02-25-2022 Rheumatoid factor Ql (S) < 10.0 IU/mL <15 [facility] Work Phone: [phone] Basophil percentageon 2021 Bilirubin [Mass/Vol] 0.30 mg/dL 0.20-1.00 [facility] Work Phone: [phone] Comment on above: For patients on eltr ombopag therapy, use of Dimension [place] TBIL is not recommended. Chloride [Moles/Vol] 104 mmol/L 98-107 [facility] Work Phone: [phone] Glucose [Mass/Vol] 105 mg/dL 74-106 [facility] Work Phone: [phone] Comment on above: Fasting Glucose resu lt from 100 to 125 mg/dL suggests IMPAIRED HOMEOSTASIS per A.D.A. criteria. Potassium [Moles/Vol] 3.3 mmol/L 3.5-5.1 [facility] Work Phone: [phone] Protein [Mass/Vol] 7.4 g/dL 6.4-8.2 [facility] Work Phone: [phone] Sodium [Moles/Vol] 137 mmol/L 136-145 [facility] Work Phone: [phone] WBC (Bld) [#/Vol] 5.9 10*3/uL 4.4-11.0 [facility] Work Phone: [phone] Blood erythrocytes count (nu mber/volume)on 01-30-2022 RBC (Bld) [#/Vol] 4.73 10*6/uL 4.2-5.4 [facility]: [phone] Blood hemoglobin measurement (mass/volume)on 01-30-2022 Hemoglobin (Bld) [Mass/Vol] 13.8 g/dL 12.0-15.0 [facility] Work Phone: [phone] Blood platelet mean volumeon 01-30-2022 Platelet mean volume (Bld) [Entitic vol] 9.4 fL 6.2-12.0 [facility] Work Phone: [phone] Determination of erythrocyte mean corpuscular volume (MCV)on 01-30-2022 MCV (RBC) [Entitic vol] 89.4 fL 81-99 [facility] Work Phone: [phone] Hematocrit Auto (Bld) [Volum e fraction]on 01-30-2022 Hematocrit (Bld) [Volume fraction] 42.3 % 37-47 [facility] Work Phone: [phone] Laboratory - Chemistry and C hemistry - challengeon 01-30-2022 ALP [Catalytic activity/Vol] 77 U/L 45-117 [facility] Work Phone: ALT [Catalytic activity/Vol] 21 U/L 13-56 [facility] Work Phone: [phone] CO2 [Moles/Vol] 27.0 mmol/L 21.0-32.0 [facility] Work Phone: [phone] Globulin (S) [Mass/Vol] 3.5 g/dL 2.2-4.2 [facility] Work Phone: [phone] Urea nitrogen/Creatinine [Mass ratio] 15.2 mg/mg 10-20 [facility] Work Phone: [phone] Laboratory - Hematology and Cell countson 01-30-2022 Erythrocyte distribution width (RBC) [Entitic vol] 42.7 fL 35.1-43.9 [facility] Work Phone: [phone] Erythrocyte distribution width (RBC) [Ratio] 12.9 % 11.6-14.6 [facility] Work Phone: MCH (RBC) [Entitic mass] 29.2 pg 27.0-32.0 [facility] Work Phone: [phone] MCHC Auto (RBC) [Mass/Vol]on 01-30-2022 MCHC (RBC) [Mass/Vol] 32.6 g/dL 32-36 [facility] Work Phone: No Panel Informationon 01-30 Estimated GFR (MDRD) Amer 67 mL/min >60 [facility] Work Phone: Comment on above: GFR Calc Estimated GFR (MDRD) Non-Af Amer 55 mL/min >60 [facility] Work Phone: Comment on above: Non- GFR Calc Culture Urine 10,000 - 50,000 cfu/ml Multiple bacterial morphotypes present. Probable Contamination. Suggest recollection if clinically indicated. [facility] Work Phone: Platelets bldon 01-30-2022 Platelets (Bld) [#/Vol] 225 10*3/uL 150-450 [facility] Work Phone: Serum or plasma albumin javon urement (mass/volume)on 01-30-2022 Albumin [Mass/Vol] 3.9 g/dL 3.2-5.0 [facility] Work Phone: [phone] Serum or plasma albumin/glob ulin mass ratioon 01-30-2022 Albumin/Globulin [Mass ratio] 1.1 {ratio} 0.9-2.4 [facility] Work Phone: [phone] Serum or plasma calcium javon urement (mass/volume)on 01-30-2022 Calcium [Mass/Vol] 9.0 mg/dL 8.5-10.1 [facility] Work Phone: [phone] Serum or plasma creatinine m easurement (mass/volume)on 01-30-2022 Creatinine [Mass/Vol] 1.05 mg/dL 0.55-1.02 [facility] Work Phone: Comment on above: The validity of the calculated GFR & GFRAA in patients over 70 years has not been determined. Clinical correlation is essential. Serum or plasma urea nitroge n measurement (mass/volume)on 01-30-2022 Urea nitrogen [Mass/Vol] 16 mg/dL 7-18 [facility] Work Phone: Thin prep Papanicolaou smear with manual screeningon 01-30-2022 Thin prep Papanicolaou smear with manual screening 18 U/L 15-37 [facility] Work Phone: Thin prep Papanicolaou smear with manual screening 6 5-15 [facility] Work Phone: Giardia lamblia ag stool EIA on 01-29-2022 G. lamblia Ag IA Ql (Stl) Negative Negative [facility] Work Phone: Comment on above: Performed at: [facility] [address] [id number] Director: Darius Andrade MD, Phone: [phone] at: [facility] [id number] Director: Ton Brown PhD, Phone: [phone] Stool Helicobacter pylori an tigen detection by immunoassayon 01-29-2022 H. 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 TECHNIQUE: Magnet: Siemens Zapiergraph mMR 3T scanner. Multiplanar MRI with multiple sequences before and after contrast. Contrast: IV: 18 ml of Dotarem Rectal: 60 ml of Surgilube RESULT: TUMOR LOCATION: Location: Lower third rectum/upper anal canal Distance of the inferior margin to the top of sphincter complex/anorectal junction: 0 cm (Involved) Distance of the inferior margin of treated tumor to the anal verge: 1.9 cm (3:16) Relationship to anterior peritoneal reflection: Below Craniocaudal length: 2 cm (3:16) Pre-treatment craniocaudal length: 5.3 cm Maximal wall thickness: 0.6 cm (5:40) Pre-treatment wall thickness: 1.4 cm Invasion of anal sphincter complex: T2 dark signal invades IAS + ISS + extends into or through external sphincter anteriorly. It abuts the posterior wall of the vagina. No diffusion restriction or enhancement. Interval decrease in size of adjacent soft tissue enhancement, likely related to posttreatment changes. Anal canal involvement: Upper and mid anal canal. TUMOR DEPOSITS AND EXTRAMURAL VASCULAR INVASION (EMVI): Tumor deposits:(separate from metastatic lymph nodes): No. EMVI: No, complete regression. MESORECTAL FASCIA (MRF): Shortest distance of extraluminal part of the tumor to MRF: Tumor does not extend into the mesorectal fat. Tumor extension through the peritonealized portion of the rectum into peritoneal fat: No extension into peritoneal fat. Is there a separate tumor deposit, LN or EMVI threatening (?1mm and ?2 mm) or invading (< 1 mm) the MRF? No. Comments: None. T4 disease interval change: Vaginal abutment. LYMPH NODES: Mesorectal/superior rectal lymph nodes and/or tumor deposits: N0 (no visible lymph nodes/deposits or only < 5 mm short axis) Suspicious extra mesorectal lymph nodes: None. OTHER STRUCTURES/ ORGANS INVOLVED: As described above. OTHER FINDINGS: Mild wall thickening and enhancement along the rectum, likely related to postradiation changes. Hysterectomy. The study was interpreted by Dr Steele, a member of the rectal cancer multidisciplinary tumor board. IMPRESSION: STABLE FIBROSIS/SCAR ALONG THE RIGHT ANTEROLATERAL ABDOMINAL, WITHOUT VIABLE TUMOR. NO LYMPHADENOPATHY. Since 08/16/2020, post treatment primary tumor assessment: Complete/near complete response. Cardiac Tech: BRENDON Transcribe Date/Time: Nov 26 2021 10:32A Dictated by : ARIANA BAEZ MD This examination was interpreted and the report reviewed and electronically signed by: NIDIA STEELE MD on Nov 26 2021 11:43AM EST [id number] N Normal [facility] No Panel Information Enteric Bacteriology [facility] Work Phone: Vital Signs Date Time Vital Sign Value Performing Clinician Facility 03-09-2025 14:25-0400 Diastolic blood pressure 82 mm[Hg] Chiquis Azul [employer] Work Phone: [facility] 03-09-2025 14:25-0400 Heart rate 78 /min Chiquis Azul [employer] Work Phone: [facility] 03-09-2025 14:25-0400 Respiratory rate 18 /min Chiquis Azul [employer] Work Phone: [facility] 03-09-2025 14:25-0400 SaO2% (BldA) [Mass fraction] 95 % Chiquis Latha [employer] Work Phone: [facility] 03-09-2025 14:25-0400 Systolic blood pressure 144 mm[Hg] Chiquis Azul [employer] Work Phone: [facility] 02-15-2025 09:55-0400 Body height 160.[address] Germán Gonzalez DO Work Phone: [facility] 02-15-2025 09:55-0400 Body mass index (BMI) [Ratio] 35.1 kg/m2 Dr. Germán Gonzalez DO Work Phone: [facility] 02-15-2025 09:55-0400 Body temperature 98.4 [degF] Dr. Germán Gonzalez DO Work Phone: [facility] 02-15-2025 09:55-0400 Body weight 89.[address] Germán Gonzalez DO Work Phone: [facility] 02-15-2025 09:55-0400 Diastolic blood pressure 82 mm[Hg] Dr. Germán Gonzalez DO Work Phone: [facility] 02-15-2025 09:55-0400 Heart rate 83 /min Dr. Germán Gonzalez DO Work Phone: [facility] 02-15-2025 09:55-0400 Respiratory rate 18 /min Dr. Germán Gonzalez DO Work Phone: [facility] 02-15-2025 09:55-0400 SaO2% (BldA) [Mass fraction] 97 % Dr. Germán Gonzalez DO Work Phone: [facility] 02-15-2025 09:55-0400 Systolic blood pressure 125 mm[Hg] Dr. Germán Gonzalez DO Work Phone: [facility] 01-05-2025 09:54-0400 Body height 160.02 cm Chiquis Azul [employer] Work Phone: [facility] 01-05-2025 09:54-0400 Diastolic blood pressure 82 mm[Hg] Chiquis Azul [employer] Work Phone: [facility] 01-05-2025 09:54-0400 Heart rate 66 /min Chiquis Azul [employer] Work Phone: [facility] 01-05-2025 09:54-0400 Respiratory rate 16 /min Chiquis Azul [employer] Work Phone: [facility] 01-05-2025 09:54-0400 SaO2% (BldA) [Mass fraction] 94 % Chiquis Azul [employer] Work Phone: [facility] 01-05-2025 09:54-0400 Systolic blood pressure 145 mm[Hg] Chiquis Azul [employer] Work Phone: [facility] 10-19-2024 13:36-0400 Diastolic blood pressure 74 mm[Hg] Chiquis Azul [employer] Work Phone: [facility] 10-19-2024 13:36-0400 Heart rate 81 /min Chiquis Azul [employer] Work Phone: [facility] 10-19-2024 13:36-0400 Respiratory rate 18 /min Chiquis Azul [employer] Work Phone: [facility] 10-19-2024 13:36-0400 SaO2% (BldA) [Mass fraction] 96 % Chiquis Azul [employer] Work Phone: [facility] 10-19-2024 13:36-0400 Systolic blood pressure 130 mm[Hg] Chiquis Singhpkins [employer] Work Phone: [facility] 10-12-2024 12:58-0400 Body height 160.02 cm Chiquis Singhpkins [employer] Work Phone: [facility] 10-12-2024 12:58-0400 Body mass index (BMI) [Ratio] 36.2 kg/m2 Chiquis Singhpkins [employer] Work Phone: [facility] 10-12-2024 12:58-0400 Body temperature 97.7 [degF] Chiquis Azul [employer] Work Phone: [facility] 10-12-2024 12:58-0400 Body weight 92.78 kg Chiquis Azul [employer] Work Phone: [facility] 10-12-2024 12:58-0400 Diastolic blood pressure 78 mm[Hg] Chiquis Singhpkins [employer] Work Phone: [facility] 10-12-2024 12:58-0400 Heart rate 69 /min Chiquis Singhpkins [employer] Work Phone: [facility] 10-12-2024 12:58-0400 Respiratory rate 16 /min Chiquis Singhpkins [employer] Work Phone: [facility] 10-12-2024 12:58-0400 SaO2% (BldA) [Mass fraction] 98 % Chiquis Latha [employer] Work Phone: [facility] 10-12-2024 12:58-0400 Systolic blood pressure 142 mm[Hg] Chiquis Latha [employer] Work Phone: [facility] 10-10-2024 11:33-0400 Body height 160.02 cm Chiquis Singhpkins [employer] Work Phone: [facility] 10-10-2024 11:33-0400 Body mass index (BMI) [Ratio] 36.3 kg/m2 Chiquis Azul [employer] Work Phone: [facility] 10-10-2024 11:33-0400 Body temperature 98.4 [degF] Chiquis Azul [employer] Work Phone: [facility] 10-10-2024 11:33-0400 Body weight 93.21 kg Chiquis Latha [employer] Work Phone: [facility] 10-10-2024 11:33-0400 Diastolic blood pressure 74 mm[Hg] Chiquis Kabakins [employer] Work Phone: [facility] 10-10-2024 11:33-0400 Heart rate 76 /min Chiquis Latha [employer] Work Phone: [facility] 10-10-2024 11:33-0400 Respiratory rate 18 /min Chiquis Singhpkins [employer] Work Phone: [facility] 10-10-2024 11:33-0400 SaO2% (BldA) [Mass fraction] 96 % Chiquis Latha [employer] Work Phone: [facility] 10-10-2024 11:33-0400 Systolic blood pressure 134 mm[Hg] Chiquis Azul [employer] Work Phone: [facility] 08-03-2024 14:18-0500 Body height 160.02 cm Chiquis Azul [employer] Work Phone: [facility] 08-03-2024 14:18-0500 Body temperature 98 [degF] Chiquis Azul [employer] Work Phone: [facility] 08-03-2024 14:18-0500 Diastolic blood pressure 79 mm[Hg] Chiquis Singhpkins [employer] Work Phone: [facility] 08-03-2024 14:18-0500 Heart rate 86 /min Chiquis Singhpkins [employer] Work Phone: [facility] 08-03-2024 14:18-0500 Respiratory rate 18 /min Chiquis Singhpkins [employer] Work Phone: [facility] 08-03-2024 14:18-0500 SaO2% (BldA) [Mass fraction] 95 % Chiquis Tattnall [employer] Work Phone: [facility] 08-03-2024 14:18-0500 Systolic blood pressure 129 mm[Hg] Chiquis Azul [employer] Work Phone: [facility] 07-04-2024 10:01-0500 Body temperature 97.5 [degF] Chiquis Tattnall [employer] Work Phone: [facility] 07-04-2024 10:01-0500 Diastolic blood pressure 85 mm[Hg] Chiquis Tattnall [employer] Work Phone: [facility] 07-04-2024 10:01-0500 Heart rate 75 /min Chiquis Azul [employer] Work Phone: [facility] 07-04-2024 10:01-0500 Respiratory rate 18 /min Chiquis Singhpkins [employer] Work Phone: [facility] 07-04-2024 10:01-0500 SaO2% (BldA) [Mass fraction] 97 % Chiquis Tattnall [employer] Work Phone: [facility] 07-04-2024 10:01-0500 Systolic blood pressure 143 mm[Hg] Chiquis Azul [employer] Work Phone: [facility] 06-13-2024 09:38-0500 Body mass index (BMI) [Ratio] 36.5 kg/m2 Chiquis Singhpkins [employer] Work Phone: [facility] 06-13-2024 09:38-0500 Body temperature 97 [degF] Chiquis Singhpkins [employer] Work Phone: [facility] 06-13-2024 09:38-0500 Body weight 93.55 kg Chiquis Singhpkins [employer] Work Phone: [facility] 06-13-2024 09:38-0500 Diastolic blood pressure 93 mm[Hg] Chiquis Singhpkins [employer] Work Phone: [facility] 06-13-2024 09:38-0500 Heart rate 70 /min Chiquis Singhpkins [employer] Work Phone: [facility] 06-13-2024 09:38-0500 Respiratory rate 18 /min Chiquis Singhpkins [employer] Work Phone: [facility] 06-13-2024 09:38-0500 SaO2% (BldA) [Mass fraction] 97 % Chiquis Snighpkins [employer] Work Phone: [facility] 06-13-2024 09:38-0500 Systolic blood pressure 153 mm[Hg] Chiquis Singhpkins [employer] Work Phone: [facility] 10-22-2023 14:27-0400 Body temperature 96.2 [degF] Chiquis Latha [employer] Work Phone: [facility] 10-22-2023 14:27-0400 Diastolic blood pressure 57 mm[Hg] Chiquis Kabakins [employer] Work Phone: [facility] 10-22-2023 14:27-0400 Heart rate 67 /min Chiquis Tattnall [employer] Work Phone: [facility] 10-22-2023 14:27-0400 Respiratory rate 16 /min Chiquis Azul [employer] Work Phone: [facility] 10-22-2023 14:27-0400 Systolic blood pressure 144 mm[Hg] Chiquis Azul [employer] Work Phone: [facility] 10-01-2023 14:02-0400 SaO2% (BldA) [Mass fraction] 96 % Chiquis Azul [employer] Work Phone: [facility] 08-16-2023 08:10-0500 Body temperature 97.8 [degF] [employer] Chiquis Azul [employer] Work Phone: [facility] 08-16-2023 08:10-0500 Diastolic blood pressure 62 mm[Hg] [employer] Chiquis Azul [employer] Work Phone: [facility] 08-16-2023 08:10-0500 Heart rate 63 /min [employer] Chiquis Azul [employer] Work Phone: [facility] 08-16-2023 08:10-0500 Respiratory rate 16 /min [employer] Chiquis Azul [employer] Work Phone: [facility] 08-16-2023 08:10-0500 SaO2% (BldA) [Mass fraction] 93 % [employer] Chiquis Azul [employer] Work Phone: [facility] 08-16-2023 08:10-0500 Systolic blood pressure 129 mm[Hg] [employer] Chiquis Azul [employer] Work Phone: [facility] 08-16-2023 06:23-0500 Body height 160.02 cm [employer] Chiquis Azul [employer] Work Phone: [facility] 08-16-2023 06:23-0500 Body mass index (BMI) [Ratio] 35.6 kg/m2 [employer] Chiquis Azul [employer] Work Phone: [facility] 08-16-2023 06:23-0500 Body weight 91.44 kg [employer] Chiquis Azul [employer] Work Phone: [facility] 08-11-2023 15:46-0500 Body mass index (BMI) [Ratio] 35.6 kg/m2 [employer] Chiquis Azul [employer] Work Phone: [facility] 08-11-2023 15:46-0500 Body temperature 98.1 [degF] [employer] Chiqius Kabakins [employer] Work Phone: [facility] 08-11-2023 15:46-0500 Body weight 91.37 kg [employer] Chiquis Azul [employer] Work Phone: [facility] 08-11-2023 15:46-0500 Diastolic blood pressure 85 mm[Hg] [employer] Chiquis Azul [employer] Work Phone: [facility] 08-11-2023 15:46-0500 Heart rate 73 /min [employer] Chiquis Azul [employer] Work Phone: [facility] 08-11-2023 15:46-0500 Respiratory rate 18 /min [employer] Chiquis Azul [employer] Work Phone: [facility] 08-11-2023 15:46-0500 SaO2% (BldA) [Mass fraction] 97 % [employer] Chiquis Azul [employer] Work Phone: [facility] 08-11-2023 15:46-0500 Systolic blood pressure 155 mm[Hg] [employer] Chiquis Azul [employer] Work Phone: [facility] 07-23-2023 08:08-0500 Body temperature 98.8 [degF] [employer] Chiquis Azul [employer] Work Phone: [facility] 07-23-2023 08:08-0500 Diastolic blood pressure 49 mm[Hg] [employer] Chiquis Azul [employer] Work Phone: [facility] 07-23-2023 08:08-0500 Heart rate 65 /min [employer] Chiquis Azul [employer] Work Phone: [facility] 07-23-2023 08:08-0500 Respiratory rate 16 /min [employer] Chiquis Azul [employer] Work Phone: [facility] 07-23-2023 08:08-0500 SaO2% (BldA) [Mass fraction] 96 % [employer] Chiquis Singhpkins [employer] Work Phone: [facility] 07-23-2023 08:08-0500 Systolic blood pressure 121 mm[Hg] [employer] Chiquis Singhpkins [employer] Work Phone: [facility] 07-22-2023 17:06-0500 Inhaled oxygen flow rate 2 L/min [employer] FOREMAN-C Chiquis Singhpkins CRUSHER FOREMAN Work Phone: [facility] 07-22-2023 08:11-0500 Body height 160.02 cm CRUSHER FOREMAN-C Chiquis Singhpkins CRUSHER FOREMAN Work Phone: [facility] 07-22-2023 08:11-0500 Body mass index (BMI) [Ratio] 35.5 kg/m2 CRUSHER FOREMAN-C Chiquis Latha CRUSHER FOREMAN Work Phone: [facility] 07-22-2023 08:11-0500 Body weight 91 kg CRUSHER FOREMAN-C Chiquis Singhpkins CRUSHER FOREMAN Work Phone: [facility] 06-25-2023 12:53-0500 Body temperature 97.3 [degF] CRUSHER FOREMAN-C Chiquis Singhpkins CRUSHER FOREMAN Work Phone: [facility] 06-25-2023 12:53-0500 Diastolic blood pressure 83 mm[Hg] CRUSHER FOREMAN-C Chiquis Latha CRUSHER FOREMAN Work Phone: [facility] 06-25-2023 12:53-0500 Heart rate 88 /min CRUSHER FOREMAN-C Chiquis Tattnall CRUSHER FOREMAN Work Phone: [facility] 06-25-2023 12:53-0500 Respiratory rate 18 /min CRUSHER FOREMAN-C Chiquis Tattnall CRUSHER FOREMAN Work Phone: [facility] 06-25-2023 12:53-0500 SaO2% (BldA) [Mass fraction] 98 % CRUSHER FOREMAN-C Chiquis Azul CRUSHER FOREMAN Work Phone: [facility] 06-25-2023 12:53-0500 Systolic blood pressure 143 mm[Hg] CRUSHER FOREMAN-C Chiquis Azul CRUSHER FOREMAN Work Phone: [facility] 06-23-2023 09:18-0500 Body height 160.02 cm CRUSHER FOREMAN-C Chiquis Azul CRUSHER FOREMAN Work Phone: [facility] 05-24-2023 13:44-0500 Body height 160.02 cm CRUSHER FOREMAN-C Chiquis Azul CRUSHER FOREMAN Work Phone: [facility] 05-24-2023 13:44-0500 Body mass index (BMI) [Ratio] 36.3 kg/m2 CRUSHER FOREMAN-C Chiquis Azul CRUSHER FOREMAN Work Phone: [facility] 05-24-2023 13:44-0500 Body temperature 97.4 [degF] CRUSHER FOREMAN-C Chiquis Azul CRUSHER FOREMAN Work Phone: [facility] 05-24-2023 13:44-0500 Body weight 93.09 kg CRUSHER FOREMAN-C Chiquis Azul CRUSHER FOREMAN Work Phone: [facility] 05-24-2023 13:44-0500 Diastolic blood pressure 98 mm[Hg] CRUSHER FOREMAN-C Chiquis Latha CRUSHER FOREMAN Work Phone: [facility] 05-24-2023 13:44-0500 Heart rate 84 /min CRUSHER FOREMAN-C Chiquis Azul CRUSHER FOREMAN Work Phone: [facility] 05-24-2023 13:44-0500 Respiratory rate 18 /min CRUSHER FOREMAN-C Chiquis Azul CRUSHER FOREMAN Work Phone: [facility] 05-24-2023 13:44-0500 SaO2% (BldA) [Mass fraction] 99 % CRUSHER FOREMAN-C Chiquis Azul CRUSHER FOREMAN Work Phone: [facility] 05-24-2023 13:44-0500 Systolic blood pressure 160 mm[Hg] CRUSHER FOREMAN-C Chiquis Azul CRUSHER FOREMAN Work Phone: [facility] 05-17-2023 09:01-0500 Body mass index (BMI) [Ratio] 36 kg/m2 CRUSHER FOREMAN-C Chiquis Azul CRUSHER FOREMAN Work Phone: [facility] 05-17-2023 09:01-0500 Body temperature 98.7 [degF] CRUSHER FOREMAN-C Chiquis Azul CRUSHER FOREMAN Work Phone: [facility] 05-17-2023 09:01-0500 Body weight 92.24 kg CRUSHER FOREMAN-C Chiquis Azul CRUSHER FOREMAN Work Phone: [facility] 05-17-2023 09:01-0500 Diastolic blood pressure 90 mm[Hg] CRUSHER FOREMAN-C Chiquis Azul CRUSHER FOREMAN Work Phone: [facility] 05-17-2023 09:01-0500 Heart rate 70 /min CRUSHER FOREMAN-C Chiquis Azul CRUSHER FOREMAN Work Phone: [facility] 05-17-2023 09:01-0500 Respiratory rate 18 /min CRUSHER FOREMAN-C Chiquis Azul CRUSHER FOREMAN Work Phone: [facility] 05-17-2023 09:01-0500 SaO2% (BldA) [Mass fraction] 95 % CRUSHER FOREMAN-C Chiquis Azul CRUSHER FOREMAN Work Phone: [facility] 05-17-2023 09:01-0500 Systolic blood pressure 127 mm[Hg] CRUSHER FOREMAN-C Chiquis Azul CRUSHER FOREMAN Work Phone: [facility] 05-03-2023 08:45-0500 Body height 160.02 cm CRUSHER FOREMAN-C Chiquis Azul CRUSHER FOREMAN Work Phone: [facility] 05-03-2023 08:45-0500 Body mass index (BMI) [Ratio] 36.3 kg/m2 CRUSHER FOREMAN-C Chiquis Azul CRUSHER FOREMAN Work Phone: [facility] 05-03-2023 08:45-0500 Body temperature 97.2 [degF] CRUSHER FOREMAN-C Chiquis Azul CRUSHER FOREMAN Work Phone: [facility] 05-03-2023 08:45-0500 Body weight 92.98 kg CRUSHER FOREMAN-C Chiquis Azul CRUSHER FOREMAN Work Phone: [facility] 05-03-2023 08:45-0500 Diastolic blood pressure 76 mm[Hg] CRUSHER FOREMAN-C Chiquis Azul CRUSHER FOREMAN Work Phone: [facility] 05-03-2023 08:45-0500 Heart rate 62 /min CRUSHER FOREMAN-C Chiquis Azul CRUSHER FOREMAN Work Phone: [facility] 05-03-2023 08:45-0500 Respiratory rate 18 /min CRUSHER FOREMAN-C Chiquis Azul CRUSHER FOREMAN Work Phone: [facility] 05-03-2023 08:45-0500 SaO2% (BldA) [Mass fraction] 98 % CRUSHER FOREMAN-C Chiquis Azul CRUSHER FOREMAN Work Phone: [facility] 05-03-2023 08:45-0500 Systolic blood pressure 169 mm[Hg] CRUSHER FOREMAN-C Chiquis Singhpkins CRUSHER FOREMAN Work Phone: [facility] 06-05-2022 14:56-0500 Body height 158.8 cm Jules Miner MD Work Phone: [facility] 06-05-2022 14:56-0500 Body temperature 98.91 [degF] Jules Miner MD Work Phone: [facility] 06-05-2022 14:56-0500 Body weight 91.63 kg Jules Miner MD Work Phone: [facility] 06-05-2022 14:56-0500 Diastolic blood pressure 83 mm[Hg] Jules Miner MD Work Phone: [facility] 06-05-2022 14:56-0500 Heart rate 76 /min Jules Miner MD Work Phone: [facility] 06-05-2022 14:56-0500 Systolic blood pressure 137 mm[Hg] Jules Miner MD Work Phone: [facility] 04-27-2022 08:25-0400 Body height 154.94 cm CRUSHER FOREMAN-C Chiquis Tattnall CRUSHER FOREMAN Work Phone: [facility] Work Phone: 04-27-2022 08:25-0400 Body mass index (BMI) [Ratio] 38.2 kg/m2 CRUSHER FOREMAN-C Chiquis Singhpkins CRUSHER FOREMAN Work Phone: [facility] Work Phone: 04-27-2022 08:25-0400 Body temperature 97.5 [degF] CRUSHER FOREMAN-C Chiquis Singhpkins CRUSHER FOREMAN Work Phone: [facility] Work Phone: 04-27-2022 08:25-0400 Body weight 91.68 kg CRUSHER FOREMAN-C Chiquis Singhpkins CRUSHER FOREMAN Work Phone: [facility] Work Phone: 04-27-2022 08:25-0400 Diastolic blood pressure 93 mm[Hg] CRUSHER FOREMAN-C Chiquis Latha CRUSHER FOREMAN Work Phone: [facility] Work Phone: 04-27-2022 08:25-0400 Heart rate 77 /min CRUSHER FOREMAN-C Chiquis Singhpkins CRUSHER FOREMAN Work Phone: [facility] Work Phone: 04-27-2022 08:25-0400 Respiratory rate 17 /min CRUSHER FOREMAN-C Chiquis Singhpkins CRUSHER FOREMAN Work Phone: [facility] Work Phone: 04-27-2022 08:25-0400 SaO2% (BldA) [Mass fraction] 97 % CRUSHER FOREMAN-C Chiquis Singhpkins CRUSHER FOREMAN Work Phone: [facility] Work Phone: 04-27-2022 08:25-0400 Systolic blood pressure 146 mm[Hg] CRUSHER FOREMAN-C Chiquis Singhpkins CRUSHER FOREMAN Work Phone: [facility] Work Phone: Encounters Encounter Date Encounter Type Care Provider Facility Start: 03-09-2025 End: 03-09-[address] Celso Rod MD -[facility] Work Phone: Start: 03-09-2025 End: 03-09-2025 ambulatory Chiquis Azul CRUSHER FOREMAN-C Work Phone: -[facility] Start: 02-22-2025 End: 02-22-2025 ambulatory Chiquis Azul CRUSHER FOREMAN-C Work Phone: -Occupational Therapy Start: 02-22-2025 End: 02-22-[address] Celso Rod MD -Occupational Thera py Work Phone: Start: 02-15-2025 End: 02-15-[address] Germán Gonzalez DO -[facility] Work Phone: Start: 02-15-2025 End: 02-15-[address] Germán Gonzalez DO Work Phone: -[facility] Start: 02-14-[address] Celso bay MD -Occupational Therapy Work Phone: Start: 01-11-[address] Celso bay MD -Occupational Therapy Work Phone: Start: 01-05-2025 End: 01-05-[address] Celso Rod MD -[facility] Work Phone: Start: 01-05-2025 End: 01-05-2025 ambulatory Chiquis Azul CRUSHER FOREMAN-C Work Phone: -[facility] Start: 01-04-2025 Non-patient / Non-visit Dr. Pillo lomas MD -[facility] Start: 01-04-2025 End: 01-04-2025 ambulatory Chiquis Azul CRUSHER FOREMAN-C Work Phone: -Cardiovascular Services Start: 01-04-2025 End: 01-04-[address] Celso Rod MD -Cardiovascular Services Work Phone: Start: 01-04-2025 End: 01-04-2025 ambulatory Celso Rod Facility:[facility] Start: 12-21-2024 End: 12-21-2024 ambulatory Chiquis Fairnis Latha CRUSHER FOREMAN-C Work Phone: -Laboratory Start: 12-21-2024 End: 12-21-2024 Patient encounter procedure Chiquis Vladislav Latha CRUSHER FOREMAN-C -Laboratory Work Phone: Start: 12-21-2024 End: 12-21-2024 ambulatory Chiquis Azul CRUSHER FOREMAN Facility:[facility] Start: 10-19-2024 End: 10-19-[address] Celso Rod MD -[facility] Work Phone: Start: 10-19-2024 End: 10-19-2024 ambulatory Germán Gonzalez [place] Start: 10-12-2024 End: 10-12-[address] Germán Gonzalez DO -[facility] Work Phone: Start: 10-12-2024 End: 10-12-2024 ambulatory Germán Gonzalez Facility:[facility] Start: 10-10-2024 End: 10-10-[address] Romain Griffin MD -[facility] Work Phone: Start: 10-10-2024 End: 10-10-2024 ambulatory Chiquis Azul CRUSHER FOREMAN [place] Start: 10-10-[address] Romain Griffin MD -[facility] Start: 10-05-2024 End: 10-05-2024 ambulatory Chiquis Azul CRUSHER FOREMAN-C Work Phone: [facility] Work Phone: Start: 10-05-2024 End: 10-05-2024 Patient encounter procedure Chiquis Azul CRUSHER FOREMAN-C -Ultrasound, [facility] Work Phone: Start: 10-05-2024 End: 10-05-2024 ambulatory Chiquis Azul CRUSHER FOREMAN Facility:[facility] Start: 09-28-2024 End: 09-28-2024 ambulatory Chiquis Azul CRUSHER FOREMAN-C Work Phone: [facility] Work Phone: Start: 09-28-2024 End: 09-28-2024 Patient encounter procedure Chiquis Azul CRUSHER FOREMAN-C -Laboratory Work Phone: Start: 09-28-2024 End: 09-28-2024 ambulatory Chiquis Azul NP Facility:[facility] Start: 08-03-2024 End: 08-03-[address] Celso oRd MD -[facility] Work Phone: Start: 08-03-2024 End: 08-03-2024 ambulatory Germán Gonzalez [place] Start: 07-27-2024 End: 07-27-[address] Germán Gonzalez DO -Outpatient Breast Imaging Work Phone: Start: 07-27-2024 End: 07-27-2024 ambulatory Germán Gonzalez Facility:[facility] Start: 07-24-2024 End: 07-24-2024 Patient encounter procedure Chiquis Azul CRUSHER FOREMAN-C -Radiology, [facility] Work Phone: Start: 07-24-2024 End: 07-24-2024 ambulatory Germán Carlos Facility:[facility] Start: 07-04-2024 End: 07-04-[address] Blu Kraus MD -Occupational Therapy Work Phone: Start: 07-04-2024 End: 07-04-2024 Patient encounter procedure Dee Carr CRUSHER FOREMAN-C -[facility] Work Phone: Start: 07-04-2024 End: 07-04-2024 ambulatory Blu Kraus Facility:[facility] Start: 06-13-2024 End: 06-13-[address] Germán Gonzalez DO -[facility] Work Phone: Start: 06-13-2024 End: 06-13-2024 ambulatory Germán Gonzalez [place] Start: 06-01-2024 End: 06-01-2024 ambulatory Chiquis Azul NP Facility[place] Start: 05-18-2024 End: 05-18-2024 ambulatory Chiquis Azul CRUSHER FOREMAN Facility:[facility] Start: 05-11-2024 End: 05-11-2024 ambulatory Chiquis Azul CRUSHER FOREMAN Facility:[facility] Start: 05-11-2024 End: 05-11-2024 ambulatory Dee Carr CRUSHER FOREMAN Facility:[facility] Start: 04-27-2024 End: 04-27-2024 ambulatory Chiquis Azul CRUSHER FOREMAN Facility:[facility] Start: 04-25-2024 End: 04-25-2024 ambulatory [facility] Facility:[facility] Start: 04-20-2024 End: 04-20-2024 ambulatory Chiquis Azul CRUSHER FOREMAN Facility:[facility] Start: 04-17-2024 End: 04-17-2024 ambulatory Chiquis Azul CRUSHER FOREMAN Facility:[facility] Start: 04-13-2024 End: 04-13-2024 ambulatory Chiquis Azul CRUSHER FOREMAN Facility:[facility] Start: 04-11-2024 End: 04-11-2024 ambulatory [facility] Facility:[facility] Start: 04-06-2024 End: 04-06-2024 ambulatory [facility]so [facility] Facility:[facility] Start: 03-29-2024 ambulatory [facility] Facility:[facility] Start: 03-29-2024 End: 03-29-2024 ambulatory [facility] Facility:[facility] Start: 03-24-2024 End: 03-24-2024 ambulatory [facility] Start: 03-23-2024 End: 03-27-2024 ambulatory CHIQUIS AZUL AUTOMOBILE INSPECTOR - MULESER Facility:[facility] Start: 03-23-2024 End: 03-27-2024 Outreach Lab CHIQUIS AZUL AUTOMOBILE INSPECTOR - MULESER [facility] Start: 03-13-2024 End: 03-13-2024 ambulatory Blu Kraus Facility:[facility] Start: 08-16-2023 Non-patient / Non-visit CRUSHER FOREMAN-C Eric Azul CRUSHER FOREMAN Work Phone: [facility] Start: 08-16-2023 End: 08-16-2023 Admission to same day surgery center CRUSHER FOREMAN-C Chiquis Azul CRUSHER FOREMAN [facility] Start: 08-16-2023 End: 08-16-2023 ambulatory CRUSHER FOREMAN-C Chiquis Azul CRUSHER FOREMAN Work Phone: [facility] Work Phone: Start: 08-11-2023 End: 08-11-2023 Patient encounter procedure CRUSHER FOREMAN-C Chiquis Azul CRUSHER FOREMAN Work Phone: [facility] Work Phone: Start: 08-11-2023 Registered Recurring CRUSHER FOREMAN-C Tez Azul CRUSHER FOREMAN Work Phone: [facility] Start: 08-02-2023 End: 08-02-2023 Patient encounter procedure CRUSHER FOREMAN-C Chiquis Azul CRUSHER FOREMAN Work Phone: [facility] Work Phone: Start: 07-22-2023 End: 07-23-2023 Evaluation and management of inpatient CRUSHER FOREMAN-C Chiquis Azul CRUSHER FOREMAN Work Phone: [facility] Work Phone: Start: 07-22-2023 End: 07-23-2023 observation encounter CRUSHER FOREMAN-C Chiquis Azul CRUSHER FOREMAN Work Phone: [facility] Work Phone: Start: 07-22-2023 Non-patient / Non-visit CRUSHER FOREMAN-C Eric Azul CRUSHER FOREMAN Work Phone: [facility] Start: 07-20-2023 End: 07-20-2023 Non-patient / Non-visit CRUSHER FOREMAN-C Chiquis Azul CRUSHER FOREMAN Work Phone: [facility] Work Phone: Start: 06-25-2023 End: 06-25-2023 ambulatory CRUSHER FOREMAN-C Chiquis Azul CRUSHER FOREMAN Work Phone: [facility] Work Phone: Start: 06-25-2023 End: 06-25-2023 Patient encounter procedure CRUSHER FOREMAN-C Chiquis Azul CRUSHER FOREMAN Work Phone: [facility]-Laboratory, Specimen Work Phone: Start: 06-25-2023 End: 06-25-2023 Patient encounter procedure CRUSHER FOREMAN-C Chiquis Azul CRUSHER FOREMAN Work Phone: [facility] Work Phone: Start: 06-18-2023 End: 06-18-2023 ambulatory CRUSHER FOREMAN-C Chiquis Azul CRUSHER FOREMAN Work Phone: [facility] Work Phone: Start: 06-18-2023 End: 06-18-2023 Patient encounter procedure CRUSHER FOREMAN-C Chiquis Azul CRUSHER FOREMAN Work Phone: [facility] Ultrasound Work Phone: Start: 06-09-2023 Non-patient / Non-visit CRUSHER FOREMAN-C Eric Azul CRUSHER FOREMAN Work Phone: [facility] Start: 06-09-2023 End: 06-09-2023 ambulatory CRUSHER FOREMAN-C Chiquis Azul CRUSHER FOREMAN Work Phone: [facility] Work Phone: Start: 06-09-2023 End: 06-09-2023 Patient encounter procedure CRUSHER FOREMAN-C Chiquis Azul CRUSHER FOREMAN Work Phone: [facility]-Cardiovascula r Services Work Phone: Start: 06-07-2023 End: 06-07-2023 ambulatory CRUSHER FOREMAN-C Chiquis Azul CRUSHER FOREMAN Work Phone: [facility] Work Phone: Start: 06-07-2023 End: 06-07-2023 Patient encounter procedure CRUSHER FOREMAN-C Chiquis Azul CRUSHER FOREMAN [facility] Work Phone: Start: 05-24-2023 End: 05-24-2023 Patient encounter procedure CRUSHER FOREMAN-C Chiquis Azul CRUSHER FOREMAN Work Phone: [facility] Work Phone: Start: 05-17-2023 End: 05-17-2023 Patient encounter procedure CRUSHER FOREMAN-C Chiquis Azul CRUSHER FOREMAN Work Phone: [facility] Work Phone: Start: 05-05-2023 Non-patient / Non-visit CRUSHER FOREMAN-C Eric Azul CRUSHER FOREMAN Work Phone: [facility] Start: 05-05-2023 End: 05-05-2023 ambulatory CRUSHER FOREMAN-C Chiquis Azul CRUSHER FOREMAN Work Phone: [facility] Work Phone: Start: 05-05-2023 End: 05-05-2023 Patient encounter procedure CRUSHER FOREMAN-C Chiquis Azul CRUSHER FOREMAN Work Phone: [facility]-Breast Imaging - Biopsy/[facility] Work Phone: Start: 05-03-2023 End: 05-03-2023 Patient encounter procedure CRUSHER FOREMAN-Mtichell Azul CRUSHER FOREMAN Work Phone: [facility] Work Phone: Start: 04-26-2023 End: 04-26-2023 ambulatory [facility] Work Phone: Start: 04-26-2023 End: 04-26-2023 Patient encounter procedure [facility] Ul[facility]ound Work Phone: Start: 04-22-2023 End: 04-22-2023 ambulatory [facility] Work Phone: Start: 04-22-2023 End: 04-22-2023 Patient encounter procedure [facility]-Outpatient Breast Imaging Work Phone: Start: 02-25-2023 End: 02-25-2023 Patient encounter procedure [facility]-Laboratory Work Phone: Start: 09-01-2022 End: 09-01-2022 ambulatory [facility] Work Phone: Start: 09-01-2022 End: 09-01-2022 Patient encounter procedure [facility]-Laboratory Start: 06-05-2022 End: 06-05-2022 ambulatory JULES MINER Facility:[facility] Start: 06-05-2022 End: 06-05-2022 ambulatory Jules Miner MD Work Phone: Hematology/Oncology Comment on above: Anal cancer (HCC) (P rimary Dx) Start: 06-05-2022 End: 06-05-2022 Patient encounter procedure Jules Miner MD Work Phone: [facility] Start: 06-05-2022 End: 06-05-2022 Subsequent hospital visit by physician Xr [facility] Work Phone: Radiology Comment on above: Anal cancer (HCC) [C 21.0] Start: 05-04-2022 End: 05-04-2022 ambulatory CRUSHER FOREMAN-C Chiquis Azul CRUSHER FOREMAN Work Phone: [facility] Work Phone: Start: 05-04-2022 End: 05-04-2022 Patient encounter procedure CRUSHER FOREMAN-C Chiquis Azul CRUSHER FOREMAN Work Phone: [facility] Start: 04-27-2022 End: 04-27-2022 Patient encounter procedure CRUSHER FOREMAN-Mitchell Azul CRUSHER FOREMAN Work Phone: [facility] Start: 04-21-2022 End: 04-21-2022 ambulatory CRUSHER FOREMAN-C Chiquis Azul CRUSHER FOREMAN Work Phone: [facility] Work Phone: Start: 04-21-2022 End: 04-21-2022 Patient encounter procedure [facility] Ultrasound Start: 04-14-2022 End: 04-14-2022 ambulatory [facility] Work Phone: Start: 04-14-2022 End: 04-14-2022 Patient encounter procedure [facility]-Outpatient Breast Imaging Start: 02-25-2022 End: 02-25-2022 ambulatory [facility] Work Phone: Start: 02-25-2022 End: 02-25-2022 Patient encounter procedure [facility]-Laboratory Start: 01-30-2022 End: 02-03-2022 Outreach Lab CHIQUIS AZUL AUTOMOBILE INSPECTOR - MULESER [facility] Start: 01-30-2022 End: 01-30-2022 Patient encounter procedure [facility]-Cat Scan, [facility] Start: 01-29-2022 End: 01-29-2022 Patient encounter procedure [facility]-Laboratory, Specimen Start: 11-26-2021 End: 11-26-2021 ambulatory [facility] Facility:[facility] Start: 11-26-2021 End: 11-26-2021 Subsequent hospital visit by physician Mri 7 [employer] Main Q (I-Stat/1.5t/3t) Work Phone: MRI Q Comment on above: 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] Procedures Date Procedure Procedure Detail Performing Clinician Start: 12-21-2024 Parathyroid hormone measurement Chiquis Azul CRUSHER FOREMAN-C Work Phone: Start: 10-10-2024 Estimated creatinine clearance Chiquis Azul CRUSHER FOREMAN-C Work Phone: Start: 10-05-2024 Complete ultrasound of kidneys and bladder Chiquis Azul CRUSHER FOREMAN-C Work Phone: Start: 09-28-2024 Vitamin D, 25-hydrox y measurement Chiquis Azul CRUSHER FOREMAN-C Work Phone: Comment on above: Vitamin D StatusDefi ciency: <20 ng/mL (50nmol/L)Insufficiency: 20-30 ng/mL (50-75 nmol/L)Sufficiency: 30-100 ng/mL (75-250 nmol/L)Toxicity: >100 ng/mL (>250 nmol/L) Start: 07-27-2024 Bilateral mammography R kate Azul CRUSHER FOREMAN-C Work Phone: Start: 07-24-2024 X-ray of chest, PA a nd lateral views Chiquis Azul CRUSHER FOREMAN-C Work Phone: Start: 04-17-2024 Measurement of renal function Chiquis Azul CRUSHER FOREMAN-C Work Phone: Comment on above: GFR Calc Start: 11-04-2023 Plain chest X-ray Debi kaela Azul CRUSHER FOREMAN-C Work Phone: Start: 11-04-2023 Assay of phosphorus inorganic Chiquis Azul CRUSHER FOREMAN-C Work Phone: Start: 11-04-2023 Total iron binding c apacity measurement Chiquis Azul CRUSHER FOREMAN-C Work Phone: Start: 08-16-2023 Plain chest X-ray CRUSHER FOREMAN-C Chiquis Azul CRUSHER FOREMAN Work Phone: Start: 08-16-2023 Fluoroscopic guidance N P-C Chiquis Azul CRUSHER FOREMAN Work Phone: Start: 08-16-2023 Implantation to cardiovascular system CRUSHER FOREMAN-C Chiquis Azul CRUSHER FOREMAN Work Phone: Start: 08-11-2023 Allergen spec ige cr ude allergen extract each Chiquis Azul CRUSHER FOREMAN-C Work Phone: Start: 07-22-2023 End: 07-22-2023 Specimen mammography CRUSHER FOREMAN-C Chiquis Álvarez ns CRUSHER FOREMAN Work Phone: Start: 07-22-2023 Breast, Lumpectomy,S N w/ Neoprobe (Bilateral) CRUSHER FOREMAN-C Chiquis Azul CRUSHER FOREMAN Work Phone: Start: 07-22-2023 End: 07-22-2023 Breast procedure CRUSHER FOREMAN-C Chiquis Laguerre s CRUSHER FOREMAN Work Phone: Start: 07-22-2023 End: 07-22-2023 Radionuclide sentinel lymph node study CRUSHER FOREMAN-C Chiquis Azul CRUSHER FOREMAN Work Phone: Start: 06-18-2023 Ultrasonography of breast CRUSHER FOREMAN-C Chiquis Azul CRUSHER FOREMAN Work Phone: Start: 06-07-2023 MRI of bilateral adriana asts with contrast CRUSHER FOREMAN-C Chiquis Azul CRUSHER FOREMAN Work Phone: Start: 05-05-2023 Biopsy of breast CRUSHER FOREMAN-C Eric Azul CRUSHER FOREMAN Work Phone: Start: 04-26-2023 Ultrasonography of breast Start: 04-22-2023 Screening mammography Start: 06-05-2022 Radiologic exam ches t 2 views Jules Miner MD Work Phone: Start: 05-04-2022 Ultrasonography guid ed biopsy of breast CRUSHER FOREMAN-C Chiquis Azul CRUSHER FOREMAN Work Phone: Start: 04-21-2022 Ultrasonography of breast CRUSHER FOREMAN-C Chiquis Azul CRUSHER FOREMAN Work Phone: Start: 04-14-2022 Screening mammography Start: 01-30-2022 Computed tomography of abdomen and pelvis with contrast Start: 11-26-2021 Mri pelvis w/o & w/c ontrast material Thania Lenz MD Work Phone: Start: 06-05-2021 Adult depression scr eening assessment Mri (I-Stat/1.5t/3t) Work Phone: Start: 04-21-2018 Colonoscopy Mri (I-Sta t/1.5t/3t) Work Phone: Start: 04-21-2018 Colonoscopy CHIQUIS TO MPKINS AUTOMOBILE INSPECTOR - MULESER Start: 01-03-2018 Arthroplasty CHIQUIS TO MPKINS AUTOMOBILE INSPECTOR - MULESER Comment on above: right knee Start: 05-24-2011 Foot structure (body structure) CHIQUIS AZUL AUTOMOBILE INSPECTOR - MULESER Comment on above: cyst removed from le ft foot Start: 06-28-1998 Hysterectomy CHIQUIS TO GHISLAINE AUTOMOBILE INSPECTOR - MULESER Comment on above: one ovary left Enteric Bacteriology Plan of Treatment Date Care Activity Detail Author Start: 2028 RSV Vaccine (1 - 1-dose 75+ series) RSV Vaccine (1 - 1-dose 75+ series) [facility] Start: 04-11-2026 COLORECTAL CANCER SCREENING COLORECTAL CANCER SCREENING [facility] Start: 04-11-2026 Screening for malignant neoplasm of colon [facility] Start: 04-11-2026 SIGMOIDOSCOPY SIGMOIDOSCOPY [facility] Start: 06-05-2025 DIABETES SCREEN DIABETES SCREEN [facility] Start: 06-05-2025 Diabetes Screening Diabetes Screening [facility] Start: 02-27-2024 Covid-19 Vaccine ( season) Covid-19 Vaccine () [facility] Start: 02-27-2024 Influenza vaccination Influenza Vaccine (#1) [facility] Start: 11-15-2023 DIABETES SCREEN DIABETES SCREEN [facility] Start: 08-19-2023 Venous catheter care management [facility] Start: 08-16-2023 Patient discharge [facility] Start: 08-11-2023 Patient referral [facility] Work Phone: Start: 07-23-2023 Patient discharge [facility] Start: 07-22-2023 Application of intermittent pneumatic compression device [facility] Start: 07-22-2023 End: 07-22-2023 Following clinical pathway protocol [facility] Start: 07-22-2023 Ambulation without limitation [facility] Start: 07-22-2023 Incentive spirometry [facility] Start: 07-22-2023 Maintenance of drainage tube [facility] Start: 07-22-2023 Taking patient vital signs [facility] Start: 07-22-2023 [facility] Start: 07-22-2023 Admission procedure [facility] Start: 07-22-2023 Anes integ extremities ant trunk & perineum nos ANESTH SKIN EXT/PER/ATRUNK [facility] Start: 07-22-2023 Mastectomy partial w/axillary lymphadenectomy P-MASTECTOMY W/LN REMOVAL [facility] Start: 06-28-2023 Advance Directive Discussion Advance Directive Discussion [facility] Start: 05-17-2023 Patient referral [facility] Work Phone: Start: 05-05-2023 Bx breast w/device addl lesion stereotact guid BX BREAST ADD LESION STRTCTC [facility] Start: 06-05-2022 Adult depression screening assessment DEPRESSION SCREENING [facility] Start: 04-21-2022 Ultrasonography of breast Breast Limited Unilateral [facility] Work Phone: Start: 04-21-2022 US Breast limited [facility] Work Phone: Start: 02-26-2022 Influenza vaccination INFLUENZA (#1) [facility] Start: 06-28-2021 ADVANCE DIRECTIVE DISCUSSION ADVANCE DIRECTIVE DISCUSSION [facility] Start: 06-28-2021 DEPRESSION ASSESSMENT DEPRESSION ASSESSMENT [facility] Start: 06-28-2019 Urine microalbumin profile DTaP,Tdap,Td Vaccine (3 - Td or Tdap) [facility] Start: 04-21-2019 Colonoscopy COLONOSCOPY [facility] Start: 04-21-2019 Screening for malignant neoplasm of colon Colonoscopy [facility] Start: 2018 BONE DENSITY BONE DENSITY [facility] Start: 2018 Pneumococcal Vaccine: 65+ (1 of 1 - PCV) Pneumococcal Vaccine: 65+ (1 of 1 - PCV) [facility] Start: 2018 PNEUMOCOCCAL: 65+ (1 - PCV) PNEUMOCOCCAL: 65+ (1 - PCV) [facility] Start: 2018 Screening for osteoporosis Bone Density Screening [facility] Start: 2003 SHINGRIX VACCINE (1 of 2) SHINGRIX VACCINE (1 of 2) [facility] Start: 1998 COLOGUARD (FIT-DNA) COLOGUARD (FIT-DNA) [facility] Start: [address] COLONOGRAPHY [facility] Start: 1998 FECAL OCCULT BLOOD FECAL OCCULT BLOOD [facility] Start: 1998 Lipid panel Lipid Screening [facility] Start: 1998 LIPID SCREEN LIPID SCREEN [facility] Start: 1998 Screening for malignant neoplasm of colon [facility] Start: 1993 Mammography MAMMOGRAM [facility] Start: 1993 Screening for malignant neoplasm of breast Mammogram Screening [facility] Start: 1972 Urine microalbumin profile DTAP,TDAP,TD (1 - Tdap) [facility] Start: 1971 Anxiety Screening Anxiety Screening [facility] Start: 1971 Depression Screening Depression Screening [facility] Start: 1959 PNEUMOCOCCAL: 65+ (1 - PCV) PNEUMOCOCCAL: 65+ (1 - PCV) [facility] Start: 1958 COVID-19 VACCINE (#1) COVID-19 VACCINE (#1) [facility] Start: 02[birth year]-1954 COVID-19 VACCINE (#1) COVID-19 VACCINE (#1) [facility] Biopsy of breast [facility] Cancer Ag 15-3 [Pres ence] in Serum or Plasma [facility] Cancer Ag 27-29 [Pre sence] in Serum or Plasma [facility] CBC W Auto Different ial panel - Blood [facility] CBC W Auto Different ial panel - Blood [facility] Comprehensive metabo lic 2000 panel - Serum or Plasma [facility] CT Abdomen and Pelvi s W contrast IV [facility] Lactate dehydrogenas e measurement [facility] Lactate dehydrogenas e measurement [facility] Patient referral [facility] Work Phone: Ultrasonography guid ed biopsy of breast [facility] Work Phone: [facility] Immunizations Immunization Date Immunization Notes Care Provider Su vazquez 03-29-2021 influenza virus vaccine, unspecified formulation Xr [employer] Work Phone: [facility] 05-10-2020 influenza, high-dose , quadrivalent vaccine (FLUZONE HIGH DOSE QUADRIVALENT) Mri (I-Stat/1.5t/3t) Work Phone: [facility] 05-12-2019 influenza, high dose seasonal, preservative-free Mri (I-Stat/1.5t/3t) Work Phone: [facility] 06-28-2009 diphtheria and tetan us toxoids, adsorbed for pediatric use [employer] [facility] 06-28-2009 hepatitis B vaccine, unspecified formulation [employer] SINGHPKINS [employer] Carla [facility] Payers Date Payer Category Payer Unknown [id number] 2023 Self-pay [id number] 2020 Medicare MEDICARE MEDICAR E A AND B [id number] 2020-Present [phone] [place] [id number] Medicare [id number] 2020 Medicare MEDICARE MEDICAR E A AND B [id number] 2020-Present [phone] [place] [address] Medicare [id number] 2019 Unknown [employer] [place] [employer] [place] MEDICARE SUPPLEMENT [id number] 2019-Present [phone] [place] [address] Indemnity [id number] 2019 Unknown [employer] [place] [employer] [place] MEDICARE SUPPLEMENT [id number] 2019-Present [phone] [place] [address] Indemnity [id number] 2019 Medicare [id number] 2019 Medicare [id number] 2019 Medicare [id number] 1955 Unknown [id number] 2.16.840.1.757882.3.579.2.62 7 Unknown [id number] Unknown [id number] 2.16.840.1.281340.3.579.2.46 2 Unknown [id number] 2.16.840.1.163898.3.579.2.46 2 Unknown [id number] 2.16.840.1.472160.3.579.2.46 2 Unknown [id number] 2.16.840.1.143289.3.579.2.46 2 Unknown [id number] 2.16.840.1.447879.3.579.2.46 2 Unknown [id number] 2.16.840.1.818185.3.579.2.46 2 Unknown [id number] 2.16.840.1.684182.3.579.2.46 2 Unknown [id number] 2.16.840.1.989799.3.579.2.46 2 Unknown [id number] 2.16.840.1.197068.3.579.2.46 2 Unknown [id number] 2.16.840.1.045501.3.579.2.46 2 Unknown [id number] 2.16.840.1.756612.3.579.2.46 2 Unknown [id number] 2.16.840.1.998470.3.579.2.46 2 Unknown [id number] 2.16.840.1.620583.3.579.2.46 2 Unknown [id number] 2.16.840.1.796880.3.579.2.46 2 Unknown [id number] 2.16.840.1.670414.3.579.2.46 2 Unknown [id number] 2.16.840.1.429300.3.579.2.46 2 Unknown [id number] 2.16.840.1.127874.3.579.2.46 2 Unknown [id number] 2.16.840.1.171280.3.579.2.46 2 Unknown [id number] 2.16.840.1.607808.3.579.2.46 2 Unknown [id number] 2.16.840.1.405059.3.579.2.46 2 Unknown [id number] 2.16.840.1.954028.3.579.2.46 2 Unknown [id number] 2.16.840.1.009485.3.579.2.46 2 Unknown [id number] 2.16.840.1.259382.3.579.2.46 2 Unknown [id number] 2.16.840.1.803848.3.579.2.46 2 Unknown [id number] 2.16.840.1.487421.3.579.2.46 2 Unknown [id number] 2.16.840.1.400925.3.579.2.46 2 Unknown [id number] 2.16.840.1.531497.3.579.2.46 2 Unknown [id number] 2.16.840.1.364405.3.579.2.46 2 Unknown [id number] 2.16.840.1.506861.3.579.2.46 2 Unknown [id number] 2.16.840.1.944321.3.579.2.46 2 Unknown [id number] 2.16.840.1.269960.3.579.2.46 2 Unknown [id number] 2.16.840.1.327020.3.579.2.46 2 Unknown [id number] 2.16.840.1.155377.3.579.2.46 2 Unknown [id number] 2.16.840.1.629077.3.579.2.46 2 Social History Date Type Detail Facility Start: 04-29-2018 End: 03-23-2024 Tobacco smoking status NHIS Never smoked tobacco [facility] Start: 04-29-2018 Tobacco use and exposure Smokeless tobacco non-user [facility] Start: 06-05-2021 End: 06-05-2022 Alcohol intake Current non-drinker of alcohol (finding) [facility] Start: 1955 Sex Assigned At Not on file [facility] Start: 11-15-2019 End: 05-31-2023 Tobacco smoking status NHIS Unknown if ever smoked [facility] Start: 07-21-2018 None [facility] Start: 01-17-2020 Spouse/ Signif icant Other [facility] Start: 1955 Sex Assigned At Female W [facility] Sex Assigned At Sex [facility] Start: 06-03-2020 End: 06-05-2022 History of Social function [facility] Start: 06-03-2020 End: 06-05-2022 Tobacco use panel [facility] Adult Depression Screening Assessment 0 [facility] Start: 10-03-2024 End: 10-11-2024 Sex Female (finding) [facility] Medical Equipment Procedure Code Equipment Code Equipment Origin al Text Equipment Identifier Dates Insertion, vascular access port ([id number]) Vascular port/catheter [id number] FDA Start: 08-16-2023 Anastomosis, lymphovenous TITANIUM MICRO CLIP FDA Start: 03-29-2024 Anastomosis, lymphovenous TITANIUM MICRO CLIP FDA Start: 03-29-2024 Anastomosis, lymphovenous TITANIUM MICRO CLIP FDA Start: 03-29-2024 Anastomosis, lymphovenous TITANIUM MICRO CLIP FDA Start: 03-29-2024 Anastomosis, lymphovenous TITANIUM MICRO CLIP FDA Start: 03-29-2024 Anastomosis, lymphovenous TITANIUM MICRO CLIP FDA Start: 03-29-2024 Anastomosis, lymphovenous TITANIUM MICRO CLIP FDA Start: 03-29-2024 Anastomosis, lymphovenous TITANIUM MICRO CLIP FDA Start: 03-29-2024 Anastomosis, lymphovenous TITANIUM MICRO CLIP FDA Start: 03-29-2024 Anastomosis, lymphovenous TITANIUM MICRO CLIP FDA Start: 03-29-2024 Anastomosis, lymphovenous TITANIUM MICRO CLIP FDA Start: 03-29-2024 Anastomosis, lymphovenous TITANIUM MICRO CLIP FDA Start: 03-29-2024 Anastomosis, lymphovenous TITANIUM MICRO CLIP FDA Start: 03-29-2024 Anastomosis, lymphovenous TITANIUM MICRO CLIP FDA Start: 03-29-2024 Anastomosis, lymphovenous TITANIUM MICRO CLIP FDA Start: 03-29-2024 Anastomosis, lymphovenous TITANIUM MICRO CLIP FDA Start: 03-29-2024 DOUGH,CEMENT 6191-1-010 FDA Start: 01-03-2018 DOUGH,CEMENT 6191-1-010 FDA Start: 01-03-2018 TRIATHLON POST STAB FEM COMP FDA Start: 01-03-2018 TRIATHLON TIBIAL INSERT-PS FDA Start: 01-03-2018 TRIATHLON TIBIAL PRIM BASEPLTE FDA Start: 01-03-2018 TRIATHLON X3 ASSYMTRC PATELLA FDA Start: 01-03-2018 DOUGH,CEMENT 6191-1-010 FDA Start: 01-03-2018 DOUGH,CEMENT 6191-1-010 FDA Start: 01-03-2018 TRIATHLON POST STAB FEM COMP FDA Start: 01-03-2018 TRIATHLON TIBIAL INSERT-PS FDA Start: 01-03-2018 TRIATHLON TIBIAL PRIM BASEPLTE FDA Start: 01-03-2018 TRIATHLON X3 ASSYMTRC PATELLA FDA Start: 01-03-2018 DOUGH,CEMENT 6191-1-010 FDA Start: 01-03-2018 DOUGH,CEMENT 6191-1-010 FDA Start: 01-03-2018 TRIATHLON POST STAB FEM COMP FDA Start: 01-03-2018 TRIATHLON TIBIAL INSERT-PS FDA Start: 01-03-2018 TRIATHLON TIBIAL PRIM BASEPLTE FDA Start: 01-03-2018 TRIATHLON X3 ASSYMTRC PATELLA FDA Start: 01-03-2018 DOUGH,CEMENT 6191-1-010 FDA Start: 01-03-2018 DOUGH,CEMENT 6191-1-010 FDA Start: 01-03-2018 TRIATHLON POST STAB FEM COMP FDA Start: 01-03-2018 TRIATHLON TIBIAL INSERT-PS FDA Start: 01-03-2018 TRIATHLON TIBIAL PRIM BASEPLTE FDA Start: 01-03-2018 TRIATHLON X3 ASSYMTRC PATELLA FDA Start: 01-03-2018 DOUGH,CEMENT 6191-1-010 FDA Start: 01-03-2018 DOUGH,CEMENT 6191-1-010 FDA Start: 01-03-2018 TRIATHLON POST STAB FEM COMP FDA Start: 01-03-2018 TRIATHLON TIBIAL INSERT-PS FDA Start: 01-03-2018 TRIATHLON TIBIAL PRIM BASEPLTE FDA Start: 01-03-2018 TRIATHLON X3 ASSYMTRC PATELLA FDA Start: 01-03-2018 DOUGH,CEMENT 6191-1-010 FDA Start: 01-03-2018 DOUGH,CEMENT 6191-1-010 FDA Start: 01-03-2018 TRIATHLON POST STAB FEM COMP FDA Start: 01-03-2018 TRIATHLON TIBIAL INSERT-PS FDA Start: 01-03-2018 TRIATHLON TIBIAL PRIM BASEPLTE FDA Start: 01-03-2018 TRIATHLON X3 ASSYMTRC PATELLA FDA Start: 01-03-2018 DOUGH,CEMENT 6191-1-010 FDA Start: 01-03-2018 DOUGH,CEMENT 6191-1-010 FDA Start: 01-03-2018 TRIATHLON POST STAB FEM COMP FDA Start: 01-03-2018 TRIATHLON TIBIAL INSERT-PS FDA Start: 01-03-2018 TRIATHLON TIBIAL PRIM BASEPLTE FDA Start: 01-03-2018 TRIATHLON X3 ASSYMTRC PATELLA FDA Start: 01-03-2018 DOUGH,CEMENT 6191-1-010 FDA Start: 01-03-2018 DOUGH,CEMENT 6191-1-010 FDA Start: 01-03-2018 TRIATHLON POST STAB FEM COMP FDA Start: 01-03-2018 TRIATHLON TIBIAL INSERT-PS FDA Start: 01-03-2018 TRIATHLON TIBIAL PRIM BASEPLTE FDA Start: 01-03-2018 TRIATHLON X3 ASSYMTRC PATELLA FDA Start: 01-03-2018 DOUGH,CEMENT 6191-1-010 FDA Start: 01-03-2018 DOUGH,CEMENT 6191-1-010 FDA Start: 01-03-2018 TRIATHLON POST STAB FEM COMP FDA Start: 01-03-2018 TRIATHLON TIBIAL INSERT-PS FDA Start: 01-03-2018 TRIATHLON TIBIAL PRIM BASEPLTE FDA Start: 01-03-2018 TRIATHLON X3 ASSYMTRC PATELLA FDA Start: 01-03-2018 DOUGH,CEMENT 6191-1-010 FDA Start: 01-03-2018 DOUGH,CEMENT 6191-1-010 FDA Start: 01-03-2018 TRIATHLON POST STAB FEM COMP FDA Start: 01-03-2018 TRIATHLON TIBIAL INSERT-PS FDA Start: 01-03-2018 TRIATHLON TIBIAL PRIM BASEPLTE FDA Start: 01-03-2018 TRIATHLON X3 ASSYMTRC PATELLA FDA Start: 01-03-2018 DOUGH,CEMENT 6191-1-010 FDA Start: 01-03-2018 DOUGH,CEMENT 6191-1-010 FDA Start: 01-03-2018 TRIATHLON POST STAB FEM COMP FDA Start: 01-03-2018 TRIATHLON TIBIAL INSERT-PS FDA Start: 01-03-2018 TRIATHLON TIBIAL PRIM BASEPLTE FDA Start: 01-03-2018 TRIATHLON X3 ASSYMTRC PATELLA FDA Start: 01-03-2018 DOUGH,CEMENT 6191-1-010 FDA Start: 01-03-2018 DOUGH,CEMENT 6191-1-010 FDA Start: 01-03-2018 TRIATHLON POST STAB FEM COMP FDA Start: 01-03-2018 TRIATHLON TIBIAL INSERT-PS FDA Start: 01-03-2018 TRIATHLON TIBIAL PRIM BASEPLTE FDA Start: 01-03-2018 TRIATHLON X3 ASSYMTRC PATELLA FDA Start: 01-03-2018 DOUGH,CEMENT 6191-1-010 FDA Start: 01-03-2018 DOUGH,CEMENT 6191-1-010 FDA Start: 01-03-2018 TRIATHLON POST STAB FEM COMP FDA Start: 01-03-2018 TRIATHLON TIBIAL INSERT-PS FDA Start: 01-03-2018 TRIATHLON TIBIAL PRIM BASEPLTE FDA Start: 01-03-2018 TRIATHLON X3 ASSYMTRC PATELLA FDA Start: 01-03-2018 Ligation clip, metallic [id number] FDA Start: 07-22-2023 Ligation clip, metallic [id number] FDA Start: 07-22-2023 Ligation clip, metallic [id number] FDA Start: 07-22-2023 Ligation clip, metallic [id number] FDA Start: 07-22-2023 DOUGH,CEMENT 6191-1-010 FDA Start: 01-03-2018 DOUGH,CEMENT 6191-1-010 FDA Start: 01-03-2018 TRIATHLON POST STAB FEM COMP FDA Start: 01-03-2018 TRIATHLON TIBIAL INSERT-PS FDA Start: 01-03-2018 TRIATHLON TIBIAL PRIM BASEPLTE FDA Start: 01-03-2018 TRIATHLON X3 ASSYMTRC PATELLA FDA Start: 01-03-2018 DOUGH,CEMENT 6191-1-010 FDA Start: 01-03-2018 DOUGH,CEMENT 6191-1-010 FDA Start: 01-03-2018 TRIATHLON POST STAB FEM COMP FDA Start: 01-03-2018 TRIATHLON TIBIAL INSERT-PS FDA Start: 01-03-2018 TRIATHLON TIBIAL PRIM BASEPLTE FDA Start: 01-03-2018 TRIATHLON X3 ASSYMTRC PATELLA FDA Start: 01-03-2018 DOUGH,CEMENT 6191-1-010 FDA Start: 01-03-2018 DOUGH,CEMENT 6191-1-010 FDA Start: 01-03-2018 TRIATHLON POST STAB FEM COMP FDA Start: 01-03-2018 TRIATHLON TIBIAL INSERT-PS FDA Start: 01-03-2018 TRIATHLON TIBIAL PRIM BASEPLTE FDA Start: 01-03-2018 TRIATHLON X3 ASSYMTRC PATELLA FDA Start: 01-03-2018 DOUGH,CEMENT 6191-1-010 FDA Start: 01-03-2018 DOUGH,CEMENT 6191-1-010 FDA Start: 01-03-2018 TRIATHLON POST STAB FEM COMP FDA Start: 01-03-2018 TRIATHLON TIBIAL INSERT-PS FDA Start: 01-03-2018 TRIATHLON TIBIAL PRIM BASEPLTE FDA Start: 01-03-2018 TRIATHLON X3 ASSYMTRC PATELLA FDA Start: 01-03-2018 DOUGH,CEMENT 6191-1-010 FDA Start: 01-03-2018 DOUGH,CEMENT 6191-1-010 FDA Start: 01-03-2018 TRIATHLON POST STAB FEM COMP FDA Start: 01-03-2018 TRIATHLON TIBIAL INSERT-PS FDA Start: 01-03-2018 TRIATHLON TIBIAL PRIM BASEPLTE FDA Start: 01-03-2018 TRIATHLON X3 ASSYMTRC PATELLA FDA Start: 01-03-2018 DOUGH,CEMENT 6191-1-010 FDA Start: 01-03-2018 DOUGH,CEMENT 6191-1-010 FDA Start: 01-03-2018 TRIATHLON POST STAB FEM COMP FDA Start: 01-03-2018 TRIATHLON TIBIAL INSERT-PS FDA Start: 01-03-2018 TRIATHLON TIBIAL PRIM BASEPLTE FDA Start: 01-03-2018 TRIATHLON X3 ASSYMTRC PATELLA FDA Start: 01-03-2018 DOUGH,CEMENT 6191-1-010 FDA Start: 01-03-2018 DOUGH,CEMENT 6191-1-010 FDA Start: 01-03-2018 TRIATHLON POST STAB FEM COMP FDA Start: 01-03-2018 TRIATHLON TIBIAL INSERT-PS FDA Start: 01-03-2018 TRIATHLON TIBIAL PRIM BASEPLTE FDA Start: 01-03-2018 TRIATHLON X3 ASSYMTRC PATELLA FDA Start: 01-03-2018 DOUGH,CEMENT 6191-1-010 FDA Start: 01-03-2018 DOUGH,CEMENT 6191-1-010 FDA Start: 01-03-2018 TRIATHLON POST STAB FEM COMP FDA Start: 01-03-2018 TRIATHLON TIBIAL INSERT-PS FDA Start: 01-03-2018 TRIATHLON TIBIAL PRIM BASEPLTE FDA Start: 01-03-2018 TRIATHLON X3 ASSYMTRC PATELLA FDA Start: 01-03-2018 DOUGH,CEMENT 6191-1-010 FDA Start: 01-03-2018 DOUGH,CEMENT 6191-1-010 FDA Start: 01-03-2018 TRIATHLON POST STAB FEM COMP FDA Start: 01-03-2018 TRIATHLON TIBIAL INSERT-PS FDA Start: 01-03-2018 TRIATHLON TIBIAL PRIM BASEPLTE FDA Start: 01-03-2018 TRIATHLON X3 ASSYMTRC PATELLA FDA Start: 01-03-2018 DOUGH,CEMENT 6191-1-010 FDA Start: 01-03-2018 DOUGH,CEMENT 6191-1-010 FDA Start: 01-03-2018 TRIATHLON POST STAB FEM COMP FDA Start: 01-03-2018 TRIATHLON TIBIAL INSERT-PS FDA Start: 01-03-2018 TRIATHLON TIBIAL PRIM BASEPLTE FDA Start: 01-03-2018 TRIATHLON X3 ASSYMTRC PATELLA FDA Start: 01-03-2018 DOUGH,CEMENT 6191-1-010 FDA Start: 01-03-2018 DOUGH,CEMENT 6191-1-010 FDA Start: 01-03-2018 TRIATHLON POST STAB FEM COMP FDA Start: 01-03-2018 TRIATHLON TIBIAL INSERT-PS FDA Start: 01-03-2018 TRIATHLON TIBIAL PRIM BASEPLTE FDA Start: 01-03-2018 TRIATHLON X3 ASSYMTRC PATELLA FDA Start: 01-03-2018 Goals Date Patient Goal Desired Activity /State Functional Status Date Assessment Result Facility 07-23-2023 Functional status Ambulates;Up ad jenny [facility] Work Phone: 07-22-2023 Functional status Assistive Devices None [facility] Work Phone: Mental Status Date Assessment Result Facility 08-16-2023 Cognitive function Awake;Alert;A ppropriate;Fol lows Commands [facility] Work Phone: 07-23-2023 Cognitive function Appropriate;Cooperativ e [facility] Work Phone: 07-22-2023 Cognitive function Voice/Name [facility] Work Phone: Clinical Notes 11-26-2021 to 02-22-2025 Note Date & Type Note Facility 02-22-2025 Discharge summary Note Date/Time February 22, 2025 7:00pm [facility] Occupational Therapy [facility] [address] [place] [address] [address] [place] [address] / REHABILITATION SERVICES DISCHARGE SUMMARY MR#: [id number] Acct: [id number] Name: CYNTHIA WALLACE Rep #: [id number] : 1955 69 From: Kylie Polanco Referring Dr.: Dr. Celso Rod MD Status: REG RCR Eval Date: Discharge Date: Discharge Summary D/C Summary: It has been my pleasure to treat CYNTHIA WALLACE under orders from Dr. Celso Rod MD, for the diagnosis of left shoulder pain for a total of 9 visit(s). Please see the following information for a summary of their discharge status. Overall Improvement % Improvement: 5 Objective Objective/Function: L shoulder flexion 110 degrees does demonstrate improvement in shoulder extension able to reach to lower back at this time elbow ROM WFL bench loom weaver on L and R 40# Goals Patient Goals: Regain Mobility, Decrease Pain, Use Hand/Wrist/Arm Normally Againand Be More Independent in ADLS Goal:: pt will demo a increase in left bench loom weaver strength by 10# to increase pts IND with ALDs by d.c. 40# gained 5# not met Goal:: pt will demo a increase in left shoulder flexion by 30* to increase pts ind. with ADLs by d.c now 110 not met pt will demo a increase in left shoulder IR to reach mid back for bathing/dressing by d.c able to reach mid back goal met Goal:: pt will demo a increase in postural strength maintaining good ambulation and seated posture. ed provided painful though so movement difficult Plan Plan: AROM/AAROM/PROM postural exercises D/C Information Discharge Comments: pt is discharge at this time as maximal potential achieved currently as pt is limited by pain in L shoulder impacting performance in tasks.pt plan is to go to pain management as well as to see Dr Rod for further options next month. pt is in agreeance with discharge from OT at this time d/c sentence: If there are questions or concerns regarding this patient's occupational therapy, please fell free to call me at [phone]. Thank you for the referral of this patient. Sincerely, Kylie Polanco <Electronically signed by Kylie Polanco> 02/22/25 [id number] CC: LUCILA Azul; Dr. Celso Rod MD ~ CK Signed [facility] Work Phone: 1(763) 532-919408-28-2025 Discharge summary [facility] Occupational [facility] [address] [place] [address] / REHABILITATION SERVICES DISCHARGE SUMMARY MR#: [id number] Acct: [id number] Name: CYNTHIA WALLACE Rep #: [id number] : 1955 69 From: Kylie Polanco Referring Dr.: Dr. Celso Rod MD Status: REG RCR Eval Date: Discharge Date: Discharge Summary D/C Summary: It has been my pleasure to treat CYNTHIA WALLACE under orders from Dr. Celso Rod MD, for the diagnosis of left shoulder pain for a total of 9 visit(s). Please see the following information for a summary of their discharge status. Overall Improvement % Improvement: 5 Objective Objective/Function: L shoulder flexion 110 degrees does demonstrate improvement in shoulder extension able to reach to lower back at this time elbow ROM WFL bench loom weaver on L and R 40# Goals Patient Goals: Regain Mobility, Decrease Pain, Use Hand/Wrist/Arm Normally Againand Be More Independent in ADLS Goal:: pt will demo a increase in left bench loom weaver strength by 10# to increase pts IND with ALDs by d.c. 40# gained 5# not met Goal:: pt will demo a increase in left shoulder flexion by 30* to increase pts ind. with ADLs by d.c now 110 not met pt will demo a increase in left shoulder IR to reach mid back for bathing/dressing by d.c able to reach mid back goal met Goal:: pt will demo a increase in postural strength maintaining good ambulation and seated posture. ed provided painful though so movement difficult Plan Plan: AROM/AAROM/PROM postural exercises D/C Information Discharge Comments: pt is discharge at this time as maximal potential achieved currently as pt is limited by pain in L shoulder impacting performance in tasks.pt plan is to go to pain management as well as to see Dr Rod for further options next month. pt is in agreeance with discharge from OT at this time d/c sentence: If there are questions or concerns regarding this patient's occupational therapy, please fell free to call me at [phone]. Thank you for the referral of this patient. Sincerely, Kylie Sanfordhn 02/22/25 1649 CC: LUCILA Azul; Dr. Celso Rod MD ~ CK Signed [facility]08-21-2025 Progress [facility] [place] [address] OFFICE VISIT Date of Service: 02/15/25 0953 MR#: [id number] Acct: [id number] Name: CYNTHIA WALLACE Rep #: [id number] : 1955 From: Germán lynch DO Age/Sex: 69/F Location[facility] Status: Signed Intake Vital Signs 10/12/24 12:58 01/05/25 09:54 02/15/25 09:55 Height 5 ft 3 in 5 ft 3 in 5 ft 3 in Weight: 198 lb 3 oz BMI 35.1 BP 125/82 H Blood Pressure Location Lt brachial Position Sitting Respiration 18 Pulse 83 Pulse Source Monitor Temp 98.4 F Temperature Source Temporal Artery Pulse Oximetry (%) 97 Oxygen Delivery Method room air Intake Visit Reasons: 4 MONTH BREAST Is patient in pain?: No Allergies Dressing: Non-Medicated Allergy (Intermediate, Verified 02/15/25 09:57) Rash Medications ?Medication ?Instructions ?Recorded ?Confirmed ?Type cholecalciferol (vitamin D3) 25 25 mcg PO DAILY 02/15/25 History mcg (1,000 unit) capsule multivitamin 1 tab PO DAILY 05/17/2301/27 History pantoprazole 40 mg tablet,delayed 40 mg PO DAILY 05/1702/15/25 History release BALANCE OF NATURE FRUITS 3 tab PO DAILY 07/14/2301/27 History BALANCE OF NATURE VEGETABLES 3 tab PO DAILY 07/14/23 0 02/15/25 History tamoxifen 20 mg tablet 20 mg PO DAILY #90 tabs 07/2202/15/25 Rx duloxetine 30 mg capsule,delayed 60 mg PO QDAY 5 02/15/25 History release Have you fallen in the past year?: No PFSH PFSH Medical History Anemia Cough Constipation 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 Encounter for education Post-menopausal History of edema Abnormal MRI, breast Wears glasses Cancer Arthritis History of hiatal hernia Gastric reflux Non-smoker History of echocardiogram Triple negative breast cancer Abnormal mammogram of left breast Left breast mass Hemorrhoids Abdominal pain Home Medications ?Medication ?Instructions ?Recorded ?Last Taken ?Type cholecalciferol (vitamin D3) 25 25 mcg PO DAILY 08/15/23 History mcg (1,000 unit) capsule multivitamin 1 tab PO DAILY 05/17/2302/26 History pantoprazole 40 mg tablet,delayed 40 mg PO DAILY 05/1703/08/24 History release BALANCE OF NATURE FRUITS 3 tab PO DAILY 07/14/2307/29 History BALANCE OF NATURE VEGETABLES 3 tab PO DAILY 07/14/23 0 08/15/23 History tamoxifen 20 mg tablet 20 mg PO DAILY #90 tabs 07/22 Unknown Rx duloxetine 30 mg capsule,delayed 60 mg PO QDAY 5 Unknown History release Allergy/AdvReac Type Severity Reaction Status Date / Time Dressing: Non-Medicated Allergy Intermediate Rash Verified 02/15/25 09:57 Family History Mother Breast cancer Diabetes Grandmother Breast cancer Sister Breast cancer Father Cancer Prostate and metastatic bone Heart disease Surgical History History of partial mastectomy of both breasts History of lymph node dissection of left axilla History of foot surgery H/O: hysterectomy Total knee replacement status Social History Smoking Status: Never smoker alcohol intake: never substance use type: does not use additional social history: pt denies vaping, denies marijuana use, denies edibles, denies aspirin and ibuprofen use Diagnosis: Cynthia Wallace is a 69 year-old female diagnosed with pathologic stage IIIA ([id number] M0) grade 2 invasive ductal carcinoma (ER 0%, SC 0%, HER2 0+ IHC) of the left breast and pathologic stage 0 (pTis pN0 (sn) M0) grade 1 DCIS (ER > 95%, SC> 95%, HER2 0+ IHC) of the right breast status post bilateral screening mammography (04/22/2023), left breast ultrasound (04/26/2023), left breast stereotactic core biopsy (05/05/2023), bilateral breast MRI (06/07/2023), right breast ultrasound (06/18/2023), right breast core biopsy (06/29/2023), bilateral partial mastectomy with bilateral axillary sentinel lymph node and left axillarydissection (07/22/2023), CT chest/abdomen/pelvis with contrast (07/30/2023 ), completion of adjuvant chemotherapy (From 08/19/2023 ? 10/21/2023). From 11/29/2023 ? 12/28/2023 she completed adjuvant radiation to the left breast and regional lymph nodes as well as adjuvant APBI to the right breast.? History of Present Illness: 05/04/2022: Patient completed ultrasound-guided biopsy of the left breast.? This demonstrated mild duct ectasia, no evidence of malignancy. 04/22/2023: Bilateral screening mammography was performed.? This demonstrated increase in size of anodular density seen in the deep slightly lateral aspect of the left breast measuring about 7.7 x 3.9 mm.? Recommend repeat biopsy.? Recommend correlation with ultrasound.? BI-RADS Category 0. 04/26/2023: Left breast ultrasound was performed.? This demonstrated a 3 x 6 x 5mm hypoechoic nodule at the 3 o'clock position of the breast at about 6 cm from the nipple.? This is increased in size slightly since the prior examination.? There is evidence of posterior acoustic shadowing.? BI-RADS Category 4. 05/05/2023: Patient completed left breast stereotactic core biopsy.? Pathology demonstrated grade 2 invasive ductal carcinoma (ER 0%, SC 0%, HER2 0+ IHC). 06/07/2023: Bilateral breast MRI with and without contrast was performed.? This demonstrated a 12 mm diameter ovoid slightly irregular enhancing mass of this o'clock position in the right breast, second look ultrasound of the right breastis recommended.? There is an irregular enhancing mass and tissue clip marker artifact at the 3:00 to 4 o'clock position of the left breast corresponding to the mammographic and ultrasonographic mass measuring approximately 11 x 6 mm.? Enhancing linear area extending from the primary mass slightly superior and inferior approximately 2 cm with the overall anterior to posterior enhancing mass measuring approximately 2.5 cm.? No abnormal lymph nodes are noted.?BI-RADS Category 0. 06/18/2023: Right breast ultrasound was performed.? This demonstrated a 6 x 4 x 8 mm hypoechoic irregular appearing nodule at the 5 to 6 o'clock position of thebreast about 3 cm in the nipple.? Recommend biopsy.? BI-RADS Category 4 06/29/2023: Patient completed right breast core biopsy.? Pathology demonstrated intraductal papillomawith extensive atypia and focal area of papillary intraductal carcinoma (ER > 95%, SC > 95%, HER2 0+ IHC). 07/22/2023: Patient completed bilateral partial mastectomy with bilateral axillary sentinel lymph node and left axillary dissection.? Pathology demonstrated a 1.5 x 1 x 0.8 cm grade 2 invasive ductal carcinoma, margins are negative with the closest margin being 3 mm from the anterior margin, no lymph- vascular invasion is noted 4 lymph nodes contained macrometastasis with the largest being 2.5 cm with a 4 mm focus of extranodal extension, 7 lymph nodes were retrieved and found to be negative.? pT1c pN2a Within the right breast there is found to be grade 1 DCIS measuring about 0.4 x 0.3 x 0.3 cm (2/13 blocks involved), necrosis is not present, margin is negativewith the closest margin being 5 mm, 5 sentinel lymph nodes were retrieved and did not contain metastatic disease.? pTis pN0 (sn) 07/30/2023: CT chest/abdomen/pelvis with contrast was performed.? This demonstrated surgical clips seen in the right axilla.? There is a 3.4 x 1.9 cm well encapsulated fluid collection in the left axilla at the operative site mostlikely representing a postoperative seroma.? There is evidence of similar- appearing well-circumscribed fluid collection in the central portion of the right breast in keeping with prior surgery.? There is no evidence for adenopathyor metastatic disease. From 08/19/2023 ? 10/21/2023: completed adjuvant TC x4 cycles. From 11/29/2023 ? 12/28/2023: received adjuvant radiation therapy to the left breastand regional lymph nodes consisting of 4256 cGy delivered in 16 fractions followed by boost to the lumpectomy cavity consisting of 1000 cGy delivered in 5fractions. She was treated with a 3D conformal treatment plan using DIBH. She concurrently received adjuvant radiation therapy to the right breast consisting of accelerated partial breast irradiation with 2850 cGy in 5 fractions given every other day. She was treated with a 3D conformal treatment plan using DIBH. 03/30/2024: Patient completed lymphaticovenular anastomosis in her left forearm. 07/27/2024: Patient completed bilateral diagnostic mammogram. This demonstrated no abnormalities. BI-RADS Category 2. Radiation Treatment History: 1) From 11/29/2023 ? 12/28/2023: received adjuvant radiation therapy to the left breast and regional lymph nodes consisting of 4256 cGy delivered in 16 fractionsfollowed by boost to the lumpectomy cavityconsisting of 1000 cGy delivered in 5fractions. She was treated with a 3D conformal treatment plan u sing DIBH. She concurrently received adjuvant radiation therapy to the right breast consisting of accelerated partial breast irradiation with 2850 cGy in 5 fractions given every other day. She was treated with a 3D conformal treatment plan using DIBH. Interval History: Patient presents for follow-up approximately 13 months after completing adjuvantradiation therapy to the left breast and regional lymph nodes as well as partialbreast radiation to the right breast. She reports doing fairly well overall. She does report having some left-sided skin thickening more sothan the right and also mild persistent tanning in the left greater than right breast. She also hassome discomfort in the lateral aspect of her left breast as well as some discomfort on the top of her shoulder extending down the posterior part of her arm. She has had lymphedema develop in the leftarm and also has some bilateral breast edema, she occasionally wears a sleeve but not consistently,she has been seen by the lymphedema clinic for management and also sees plastic surgery. Anastomosis surgery in March 2024 she doesn't think helped much. Shedoes report pretty good arm range of motion bilaterally, mild tightness within the left sided arm range of motion. She is working with PT/OTon this. ReportsSOB with exertion, no chest pain or cough. She denies headaches, vision changes, focal weakness/numbness, nausea/vomiting, bone pain. Energy level has remained stable and she completes all ADLs without any difficulty. She denies having other problems or concerns at this time. Review of Systems: A 12-point review of systems was completed and was negative except for what is noted in the HPI/Interval History and by the nurse. Physical Exam: Weight: 198 lbs 3 oz ECO KARNOFSKY SCORE: 70% CONSTITUTIONAL: Well-developed, well-nourished, and in no apparent distress. NECK: Supple, no thyromegaly, and non-tender. Trachea midline. No cervical or supraclavicular adenopathy noted. CARDIAC: Regular rate and rhythm. Normal S1, S2. No murmurs, rubs, or gallops. PULMONARY/CHEST: Lungs are clear to auscultation and percussion bilaterally. No wheezes, rhonchi, or crackles noted. No increased work of breathing. BREAST: Bilateral breast examined in the seated and supine position. Breasts appear mostly symmetrical. Well-healed incisions bilaterally. No palpable masses or nodules are appreciated. There is leftgreater than right tanning extending into the axilla. Bilateral trabecular appearance with skin thickening/swelling. EXT: Left upper extremity edema, mostly full ROM, some difficulty with complete shoulder abduction. PSYCHIATRIC: Appropriate mood and affect for the clinical situation. Imaging: As per HPI Laboratory Data: None Assessment & Plan Assessment/Plan (1) Triple negative breast cancer: (2) Ductal carcinoma in situ (DCIS) of right breast: PLAN: Plan Assessment: Cynthia Wallace is a 69 year-old female diagnosed with pathologic stage IIIA ([id number] M0) grade 2 invasive ductal carcinoma (ER 0%, SC 0%, HER2 0+ IHC) of the left breast and pathologic stage 0 (pTis pN0 (sn) M0) grade 1 DCIS (ER > 95%, SC> 95%, HER2 0+ IHC) of the right breast status post bilateral screening mammography (04/22/2023), left breast ultrasound (04/26/2023), left breast stereotactic core biopsy (05/05/2023), bilateral breast MRI (06/07/2023), right breast ultrasound (06/18/2023), right breast core biopsy (06/29/2023), bilateral partial mastectomy with bilateral axillary sentinel lymph node and left axillarydissection (07/22/2023), CT chest/abdomen/pelvis with contrast (07/30/2023 ), completion of adjuvant chemotherapy (From 08/19/2023 ? 10/21/2023). From 11/29/2023 ? 12/28/2023 she completed adjuvant radiation to the left breast and regional lymph nodes as well as adjuvant APBI to the right breast.? Plan: Patient presents for follow-up approximately 13 months after completing adjuvantradiation therapy to the left breast and regional lymph nodes and adjuvant APBI completed to the right breast. DEMETRIA on exam, mammogram in June 2024 benign. Overall she is clinically doing fairly well, she does have per sistent tanning inthe left greater than right breast and also has breast and left arm lymphedema which is currently stable and controlled, status post left forearm lymphaticovenular anastomosis and continues to see the lymphedema clinic for management and plastic surgery. Tolerating hormone therapyfor the right DCIS fairly well. For disease follow-up I recommended breast exam every 4 months forthe first 2 years and resumption of her annual mammography which is scheduled inJan2025. Planning to discuss SOB and consider workup with PCP, this is mostly stable and fairly minor. I will plan to have her return for routine follow-up in 4 months and she was instructed to call with any further q uestions or concerns in the interim. Thank you for allowing me to participate in the management and care of your patient. If I may answer any questions in the interim, please do not hesitate tocontact me at any time. Germán Gonzalez DO, MS Corporate Scheduler, Department of Radiation Oncology [facility] Coding Level of Care Code Off vis,est,level 3 Diagnoses Triple negative breast cancer C50.919 Ductal carcinoma in situ (DCIS) of right breast D05.11 02/15/25 1030 DO> Date _ Germán Gonzalez DO Cosigner Signature: Date (if applicable) CC: ~ [place] [id number] Progress note Author Germán Carlos [facility] Services Note Date/Time February 15, 2025 10 :30am [facility] [address] OFFICE VISIT Date of Service: 02/15/25 0953 MR#: [id number] Acct: [id number] Name: CYNTHIA WALLACE Rep #: [id number] : 1955 From: Germán lynch DO Age/Sex: 69/F [place] [facility] Status: Signed Intake Vital Signs 10/12/24 12:58 01/05/25 09:54 02/15/25 09:55 Height 5 ft 3 in 5 ft 3 in 5 ft 3 in Weight: 198 lb 3 oz BMI 35.1 BP 125/82 H Blood Pressure Location Lt brachial Position Sitting Respiration 18 Pulse 83 Pulse Source Monitor Temp 98.4 F Temperature Source Temporal Artery Pulse Oximetry (%) 97 Oxygen Delivery Method room air Intake Visit Reasons: 4 MONTH BREAST Is patient in pain?: No Allergies Dressing: Non-Medicated Allergy (Intermediate, Verified 02/15/25 09:57) Rash Medications ?Medication ?Instructions ?Recorded ?Confirmed ?Type cholecalciferol (vitamin D3) 25 25 mcg PO DAILY 02/15/25 History mcg (1,000 unit) capsule multivitamin 1 tab PO DAILY 05/17/2301/27 History pantoprazole 40 mg tablet,delayed 40 mg PO DAILY 05/1702/15/25 History release BALANCE OF NATURE FRUITS 3 tab PO DAILY 07/14/2301/27 History BALANCE OF NATURE VEGETABLES 3 tab PO DAILY 07/14/23 0 02/15/25 History tamoxifen 20 mg tablet 20 mg PO DAILY #90 tabs 07/2202/15/25 Rx duloxetine 30 mg capsule,delayed 60 mg PO QDAY 5 02/15/25 History release Have you fallen in the past year?: No PFSH PFSH Medical History Anemia Cough Constipation 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 Encounter for education Post-menopausal History of edema Abnormal MRI, breast Wears glasses Cancer Arthritis History of hiatal hernia Gastric reflux Non-smoker History of echocardiogram Triple negative breast cancer Abnormal mammogram of left breast Left breast mass Hemorrhoids Abdominal pain Home Medications ?Medication ?Instructions ?Recorded ?Last Taken ?Type cholecalciferol (vitamin D3) 25 25 mcg PO DAILY 08/15/23 History mcg (1,000 unit) capsule multivitamin 1 tab PO DAILY 05/17/2302/26 History pantoprazole 40 mg tablet,delayed 40 mg PO DAILY 05/1703/08/24 History release BALANCE OF NATURE FRUITS 3 tab PO DAILY 07/14/2307/29 History BALANCE OF NATURE VEGETABLES 3 tab PO DAILY 07/14/23 0 08/15/23 History tamoxifen 20 mg tablet 20 mg PO DAILY #90 tabs 07/22 Unknown Rx duloxetine 30 mg capsule,delayed 60 mg PO QDAY 5 Unknown History release Allergy/AdvReac Type Severity Reaction Status Date / Time Dressing: Non-Medicated Allergy Intermediate Rash Verified 02/15/25 09:57 Family History Mother Breast cancer Diabetes Grandmother Breast cancer Sister Breast cancer Father Cancer Prostate and metastatic bone Heart disease Surgical History History of partial mastectomy of both breasts History of lymph node dissection of left axilla History of foot surgery H/O: hysterectomy Total knee replacement status Social History Smoking Status: Never smoker alcohol intake: never substance use type: does not use additional social history: pt denies vaping, denies marijuana use, denies edibles, denies aspirin and ibuprofen use Diagnosis: Cynthia Wallace is a 69 year-old female diagnosed with pathologic stage IIIA ([id number] M0) grade 2 invasive ductal carcinoma (ER 0%, SC 0%, HER2 0+ IHC) of the left breast and pathologic stage 0 (pTis pN0 (sn) M0) grade 1 DCIS (ER > 95%, SC> 95%, HER2 0+ IHC) of the right breast status post bilateral screening mammography (04/22/2023), left breast ultrasound (04/26/2023), left breast stereotactic core biopsy (05/05/2023), bilateral breast MRI (06/07/2023), right breast ultrasound (06/18/2023), right breast core biopsy (06/29/2023), bilateral partial mastectomy with bilateral axillary sentinel lymph node and left axillarydissection (07/22/2023), CT chest/abdomen/pelvis with contrast (07/30/2023), completion of adjuvant chemotherapy (From 08/19/2023 ? 10/21/2023). From 11/29/2023 ? 12/28/2023 she completed adjuvant radiation to the left breast and regional lymph nodes as well as adjuvant APBI to the right breast.? History of Present Illness: 05/04/2022: Patient completed ultrasound-guided biopsy of the left breast.? This demonstrated mild duct ectasia, no evidence of malignancy. 04/22/2023: Bilateral screening mammography was performed.? This demonstrated increase in size of a nodular density seen in the deep slightly lateral aspect of the left breast measuring about 7.7 x 3.9 mm.? Recommend repeat biopsy.? Recommend correlation with ultrasound.? BI-RADS Category 0. 04/26/2023: Left breast ultrasound was performed.? This demonstrated a 3 x 6 x 5mm hypoechoic nodule at the 3 o'clock position of the breast at about 6 cm from the nipple.? This is increased in size slightly since the prior examination.? There is evidence of posterior acoustic shadowing.? BI-RADS Category 4. 05/05/2023: Patient completed left breast stereotactic core biopsy.? Pathology demonstrated grade 2 invasive ductal carcinoma (ER 0%, SC 0%, HER2 0+ IHC). 06/07/2023: Bilateral breast MRI with and without contrast was performed.? This demonstrated a 12 mm diameter ovoid slightly irregular enhancing mass of this o'clock position in the right breast, second look ultrasound of the right breastis recommended.? There is an irregular enhancing mass and tissue clip marker artifact at the 3:00 to 4 o'clock position of the left breast corresponding to the mammographic and ultrasonographic mass measuring approximately 11 x 6 mm.? Enhancing linear area extending from the primary mass slightly superior and inferior approximately 2 cm with the overall anterior to posterior enhancing mass measuring approximately 2.5 cm.? No abnormal lymph nodes are noted.? BI-RADS Category 0. 06/18/2023: Right breast ultrasound was performed.? This demonstrated a 6 x 4 x 8 mm hypoechoic irregular appearing nodule at the 5 to 6 o'clock position of thebreast about 3 cm in the nipple.? Recommend biopsy.? BI-RADS Category 4 06/29/2023: Patient completed right breast core biopsy.? Pathology demonstrated intraductal papilloma with extensive atypia and focal area of papillary intraductal carcinoma (ER > 95%, SC > 95%, HER2 0+ IHC). 07/22/2023: Patient completed bilateral partial mastectomy with bilateral axillary sentinel lymph node and left axillary dissection.? Pathology demonstrated a 1.5 x 1 x 0.8 cm grade 2 invasive ductal carcinoma, margins are negative with the closest margin being 3 mm from the anterior margin, no lymph-vascular invasion is noted 4 lymph nodes contained macrometastasis with the largest being 2.5 cm with a 4 mm focus of extranodal extension, 7 lymph nodes were retrieved and found to be negative.? pT1c pN2a Within the right breast there is found to be grade 1 DCIS measuring about 0.4 x 0.3 x 0.3 cm (2/13 blocks involved), necrosis is not present, margin is negativewith the closest margin being 5 mm, 5 sentinel lymph nodes were retrieved and did not contain metastatic disease.? pTis pN0 (sn) 07/30/2023: CT chest/abdomen/pelvis with contrast was performed.? This demonstrated surgical clips seen in the right axilla.? There is a 3.4 x 1.9 cm well encapsulated fluid collection in the left axilla at the operative site mostlikely representing a postoperative seroma.? There is evidence of similar-appearing well-circumscribed fluid collection in the central portion of the right breast in keeping with prior surgery.? There is no evidence for adenopathyor metastatic disease. From 08/19/2023 ? 10/21/2023: completed adjuvant TC x4 cycles. From 11/29/2023 ? 12/28/2023: received adjuvant radiation therapy to the left breastand regional lymph nodes consisting of 4256 cGy delivered in 16 fractions followed by boost to the lumpectomy cavity consisting of 1000 cGy delivered in 5fractions. She was treated with a 3D conformal treatment plan using DIBH. She concurrently received adjuvant radiation therapy to the right breast consisting of accelerated partial breast irradiation with 2850 cGy in 5 fractions given every other day. She was treated with a 3D conformal treatment plan using DIBH. 03/30/2024: Patient completed lymphaticovenular anastomosis in her left forearm. 07/27/2024: Patient completed bilateral diagnostic mammogram. This demonstrated no abnormalities. BI-RADS Category 2. Radiation Treatment History: 1) From 11/29/2023 ? 12/28/2023: received adjuvant radiation therapy to the left breast and regional lymph nodes consisting of 4256 cGy delivered in 16 fractionsfollowed by boost to the lumpectomy cavity consisting of 1000 cGy delivered in 5fractions. She was treated with a 3D conformal treatment plan using DIBH. She concurrently received adjuvant radiation therapy to the right breast consisting of accelerated partial breast irradiation with 2850 cGy in 5 fractions given every other day. She was treated with a 3D conformal treatment plan using DIBH. Interval History: Patient presents for follow-up approximately 13 months after completing adjuvantradiation therapy to the left breast and regional lymph nodes as well as partialbreast radiation to the right breast. She reports doing fairly well overall. She does report having some left-sided skin thickening more so than the right and also mild persistent tanning in the left greater than right breast. She also has some discomfort in the lateral aspect of her left breast as well as some discomfort on the top of her shoulder extending down the posterior part of her arm. She has had lymphedema develop in the left arm and also has some bilateral breast edema, she occasionally wears a sleeve but not consistently, she has been seen by the lymphedema clinic for management and also sees plastic surgery. Anastomosis surgery in March 2024 she doesn't think helped much. Shedoes report pretty good arm range of motion bilaterally, mild tightness within the left sided arm range of motion. She is working with PT/OT on this. ReportsSOB with exertion, no chest pain or cough. She denies headaches, vision changes, focal weakness/numbness, nausea/vomiting, bone pain. Energy level has remained stable and she completes all ADLs without any difficulty. She denies having other problems or concerns at this time. Review of Systems: A 12-point review of systems was completed and was negative except for what is noted in the HPI/Interval History and by the nurse. Physical Exam: Weight: 198 lbs 3 oz ECO KARNOFSKY SCORE: 70% CONSTITUTIONAL: Well-developed, well-nourished, and in no apparent distress. NECK: Supple, no thyromegaly, and non-tender. Trachea midline. No cervical or supraclavicular adenopathy noted. CARDIAC: Regular rate and rhythm. Normal S1, S2. No murmurs, rubs, or gallops. PULMONARY/CHEST: Lungs are clear to auscultation and percussion bilaterally. No wheezes, rhonchi, or crackles noted. No increased work of breathing. BREAST: Bilateral breast examined in the seated and supine position. Breasts appear mostly symmetrical. Well-healed incisions bilaterally. No palpable masses or nodules are appreciated. There is left greater than right tanning extending into the axilla. Bilateral trabecular appearance with skin thickening/swelling. EXT: Left upper extremity edema, mostly full ROM, some difficulty with complete shoulder abduction. PSYCHIATRIC: Appropriate mood and affect for the clinical situation. Imaging: As per HPI Laboratory Data: None Assessment & Plan Assessment/Plan (1) Triple negative breast cancer: (2) Ductal carcinoma in situ (DCIS) of right breast: PLAN: Plan Assessment: Cynthia Wallace is a 69 year-old female diagnosed with pathologic stage IIIA ([id number] M0) grade 2 invasive ductal carcinoma (ER 0%, SC 0%, HER2 0+ IHC) of the left breast and pathologic stage 0 (pTis pN0 (sn) M0) grade 1 DCIS (ER > 95%, SC> 95%, HER2 0+ IHC) of the right breast status post bilateral screening mammography (04/22/2023), left breast ultrasound (04/26/2023), left breast stereotactic core biopsy (05/05/2023), bilateral breast MRI (06/07/2023), right breast ultrasound (06/18/2023), right breast core biopsy (06/29/2023), bilateral partial mastectomy with bilateral axillary sentinel lymph node and left axillarydissection (07/22/2023), CT chest/abdomen/pelvis with contrast (07/30/2023), completion of adjuvant chemotherapy (From 08/19/2023 ? 10/21/2023). From 11/29/2023 ? 12/28/2023 she completed adjuvant radiation to the left breast and regional lymph nodes as well as adjuvant APBI to the right breast.? Plan: Patient presents for follow-up approximately 13 months after completing adjuvantradiation therapy to the left breast and regional lymph nodes and adjuvant APBI completed to the right breast. DEMETRIA on exam, mammogram in June 2024 benign. Overall she is clinically doing fairly well, she does have persistent tanning inthe left greater than right breast and also has breast and left arm lymphedema which is currently stable and controlled, status post left forearm lymphaticovenular anastomosis and continues to see the lymphedema clinic for management and plastic surgery. Tolerating hormone therapy for the right DCIS fairly well. For disease follow-up I recommended breast exam every 4 months forthe first 2 years and resumption of her annual mammography which is scheduled inJan2025. Planning to discuss SOB and consider workup with PCP, this is mostly stable and fairly minor. I will plan to have her return for routine follow-up in 4 months and she was instructed to call with any further questions or concerns in the interim. Thank you for allowing me to participate in the management and care of your patient. If I may answer any questions in the interim, please do not hesitate tocontact me at any time. Germán Gonzalez DO, MS Corporate Scheduler, Department of Radiation Oncology [facility] Coding Level of Care Code Off vis,est,level 3 Diagnoses Triple negative breast cancer C50.919 Ductal carcinoma in situ (DCIS) of right breast D05.11 02/15/25 1030 <Electronically signed by Germán Gonzalez DO> Date _ Germán Gonzalez DO Cosigner Signature: Date (if applicable) CC: ~ [facility] Work Phone: 1(409) 148-722807-11-2025 Evaluation note* Diagnosis Onset Date Resolution Status Admit Date Lymphedema acute January 05 9:41am Ductal carcinoma in situ (DCIS) of right breast chronic February 152024 9:44am Triple negative breast cancer chroni c February 15, 2025 9:44am [facility] Work Phone: 1(545) 975-783704-24-2025 Evaluation note* Diagnosis Onset Date Resolution Status Admit Date Lymphedema acute October 19 1:11pm Lymphedema acute January 05 9:41am Ductal carcinoma in situ (DCIS) of right breast chronic February 152024 9:44am Triple negative breast cancer chroni c February 15, 2025 9:44am [facility] Work Phone: 1(174) 426-488104-15-2025 Evaluation note* Diagnosis Onset Date Resolution Status Admit Date Ductal carcinoma in situ (DCIS) of right breast chronic September 10:51am Triple negative breast cancer chroni c October 10, 2024 10:51am Ductal carcinoma in situ (DCIS) of right breast chronic September 12:17pm Triple negative breast cancer chroni c October 12, 2024 12:17pm Lymphedema acute October 19 1:11pm [facility] Work Phone: 1([phone] 879-910904-15-2025 Evaluation note* Diagnosis Onset Date Resolution Status Admit Date Ductal carcinoma in situ (DCIS) of right breast chronic September 10:51am Triple negative breast cancer chroni c October 10, 2024 10:51am Ductal carcinoma in situ (DCIS) of right breast chronic September 12:17pm Triple negative breast cancer chroni c October 12, 2024 12:17pm Lymphedema acute October 19 1:11pm Lymphedema acute January 05 9:41am [facility] Work Phone: 1([phone] 152-391704-10-2025 Radiology Diagnostic study note [facility] Imaging Services [address] [place], [place] [id number] Kidney and Bladder MR#: [id number] Acct: [id number] Name: CYNTHIA WALLACE Rep #: [id number] : 1955 F 69 From: Marybel Maldonado DO PCP: LUCILA Layne Status: REG CLI Study:Kidney and Bladder Date of Exam: 0 10/05/24 Exam# [id number] Ordering Dr: Chiquis Azul NP [employer]-Mitchell PROCEDURE: KIDNEY AND BLADDER 10/05/2024 REASON FOR EXAM: Stage 3 chronic kidney disease TECHNIQUE: Ultrasound evaluation of the kidneys and urinary bladder. COMPARISON: Abdominal/pelvic CT 08/17/2023 FINDINGS: The right kidney is 11.1 cm in length. The left kidney is 10.4 cm in length. The cortical-medullarydifferentiation is maintained. No solid-appearing renal mass or obstructive uropathy. No echogenic intrarenal calculus. The urinary bladder is not well distended on this examination, limiting evaluation. Both ureteral jets are demonstrated. US/Kidney and Bladder IMPRESSION: Unremarkable renal ultrasound. No obstructive uropathy. Limited evaluation of the urinary bladder. Both ureteral jets are demonstrated. Reading Location: [place] CC: DILIP-Mitchell Azul ~ Cardiac Tech: Signed [facility]12-17-2024 Evaluation note* Diagnosis Onset Date Resolution Status Admit Date Ductal carcinoma in situ (DCIS) of right breast chronic June 13, 2024 9:24am Triple negative breast cancer chroni c June 13, 2024 9:24am Lymphedema acute July 04, 025 9:54am Lymphedema acute August 03, 2024 1:30pm [facility] Work Phone: 1(166) 202-409812-17-2024 Evaluation note* Diagnosis Onset Date Resolution Status Admit Date Ductal carcinoma in situ (DCIS) of right breast chronic June 13, 2024 9:24am Triple negative breast cancer chroni c June 13, 2024 9:24am Lymphedema acute July 04, 2 025 9:54am Lymphedema acute August 03, 2024 1:30pm Ductal carcinoma in situ (DCIS) of right breast chronic September 10:51am Triple negative breast cancer chroni c October 10, 2024 10:51am [facility] Work Phone: 1(494) 543-533302-19-2024 History and physical note Author Blu Kraus [facility] August 16, 2023 6:52am Note Date/Time August 16, 2023 6:52am [facility] Medical Records Department [address] [place] [address] H&P Exam - Surgical 08/16/23 0650 MR#: [id number] Acct: [id number] Name: CYNTHIA WALLACE Rep #:[id number] : 1955 68 From: Blu granados MD PCP: LUCILA Layne tus:[facility] [facility] Location: [place] [address] HPI - General HPI Narrative CYNTHIA WALLACE, is a 68 F who presents for port placement. The patient had bilateral breast cancers which were removed. Patient was found to have positivenodes on the left and is here for port placement for chemotherapy initiation. [facility] Medical History Abdominal pain Abnormal mammogram of left breast Abnormal MRI, breast Arthritis Cancer Gastric reflux Hemorrhoids History of echocardiogram History of edema History of hiatal hernia Left breast mass Non-smoker Post-menopausal Triple negative breast cancer Wears glasses Home Medications acetaminophen 325 mg tablet (Tylenol) 1,000 mg (3.0769 x 325 mg) PO Q8H PRN Fever, headache, pain 07/24/18 [Rx Last Taken Unknown] cholecalciferol (vitamin D3) 25 mcg (1,000 unit) capsule 25 mcg PO DAILY 05/17/23 [History Last Taken 08/15/23] multivitamin 1 tab PO DAILY 05/17/23 [History Last Taken 08/15/23] nabumetone 500 mg tablet 500 mg PO BID 05/17/23 [History Last Taken 08/15/23 08:00] pantoprazole 40 mg tablet,delayed release 40 mg PO DAILY 05/17/23 [History Last Taken 08/16/23 05:30] BALANCE OF NATURE FRUITS 3 tab PO DAILY 07/14/23 [History Last Taken 08/15/23] BALANCE OF NATURE VEGETABLES 3 tab PO DAILY 07/14/23 [History Last Taken 08/15/23] Allergy/AdvReac Type Severity Reaction Status Date / Time Dressing: Non-Medicated Allergy Intermediate Rash Verified 08/16/23 06:19 Family History Mother Breast cancer Diabetes Grandmother Breast cancer Sister Breast cancer Father Cancer Prostate and metastatic bone Heart disease Surgical History H/O: hysterectomy History of foot surgery History of lymph node dissection of left axilla History of partial mastectomy of both breasts Total knee replacement status Social History Smoking Status: Never smoker alcohol intake: never ROS Constitutional Constitutional: Denies anorexia, chills or fatigue Eyes Eyes: Denies change in vision ENT HEENT: Denies abnormal hearing Cardiovascular Cardiovascular: Denies chest pain Respiratory/Chest Respiratory/Chest: Denies cough or dyspnea Gastrointestinal Gastrointestinal: Denies abdominal pain Genitourinary Genitourinary: Denies change in urinary stream Musculoskeletal Musculoskeletal: Denies abnormal gait Integumentary Integumentary: Denies jaundice Neurologic Neurologic: Denies abnormal gait Hematologic/Lymphatic Hematologic/Lymphatic: Denies easy bleeding Vital Signs Vital Signs Vital Signs: 08/16/23 06:22 08/16/23 06:23 Temperature 97.5 F L Temperature Source Temporal Pulse Rate 61 Respiratory Rate 16 Respiratory Pattern Normal Blood Pressure 134/79 H Blood Pressure Mean 97 Blood Pressure Source Monitor Blood Pressure Position Semi-Fowlers Blood Pressure Location Right Arm Pulse Ox 98 Oxygen Delivery Method Room Air Weight Weight: 201 lb 9.6 oz Body Mass Index (BMI) 35.6 Physical Exam Const oriented x3 and no apparent distress Resp normal respiratory effort Cardio regular rate and regular rhythm GI normal to inspection, nondistended, normoactive bowel sounds Assessment & Plan Assessment/Plan (1) Triple negative breast cancer: PLAN: I discussed right chest port placement the patient in detail. I discussedthe risks including but not limited to bleeding, infection, injury other organs,pneumothorax. Patient understands the risks and is willing to proceed. Blu Kraus MD Pager: [facility] [address] [place] [address], [address] [place] [address] Office: 08/16/23 [phone] <Electronically signed by Blu Kraus MD> Cosigner Signature (if applicable): CC: LUCILA Azul; Dr. Blu Kraus MD~ Signed [facility] Work Phone: 1(579) 799-991302-19-2024 Procedure [facility] 07-23-2023 Discharge summary Author Blu Kraus [facility] July 23, 2023 7:19am Note Date/Time July 23, 2023 7 :17am [facility] Medical Records Department [address] [place] [address] Instructions for Home/Discharge Instructions 07/23/23 0716 MR#: [id number] Acct: [id number] Name: CYNTHIA WALLACE Rep #:[id number] : 1955 67 From: Blu granados MD PCP: LUCILA Layne Sta tus:ADM ZACK Discharge Instructions Diet Discharge Diet: Light diet - advance as tolerated Activity Discharge Activity: May Not Drive (for 2-3 days or while taking narcotic pain medications.) and May Shower Lifting Restrictions: 10 lbs for 1 week Dressing / Incision Call your doctor if your incision/area has: Continuous Slow Oozing, Sudden Increased Bleeding, Increased Pain/ Swelling, Increased Redness, Foul Smelling Discharge and Swelling at the incision site Call your doctor if you observe: Fever of 101 or Higher Suture Line Care: Avoid Pulling/Pushing and Avoid Pinching/Bending Cleanse incision/area with: Soap & Water Additional Dressing/Incision Instructions:: Wear tight fitting sports bra for support, record drain output daily. Follow Up Care Please Follow Up With: Blu Kraus MD When: Please call to schedule 1 week follow up appointment. [phone] Test Results: Test results from this visit will be discussed in further detail at your follow- up appointment, if applicable. Discharge Plan Admission Admit Date/Time: 07/22/23 16:46 Attending Provider: Blu Kraus Primary Care Provider: Chiquis Azul NP Discharge Orders/Prescriptions Prescriptions: New oxycodone 5 mg Tablet 5 - 10 mg PO Q4H PRN PRN (Reason: Pain Score 4-10) 5 Days Qty: 30 0RF Continued multivitamin Tablet 1 tab PO DAILY pantoprazole 40 mg tablet,delayed release (DR/EC) 40 mg PO DAILY nabumetone 500 mg tablet 500 mg PO BID cholecalciferol (vitamin D3) 25 mcg (1,000 unit) capsule 25 mcg PO DAILY acetaminophen [Tylenol] 325 MG tablet 1,000 mg PO Q8H PRN (Reason: Fever, headache, pain) 0RF BALANCE OF NATURE FRUITS 3 tab PO DAILY BALANCE OF NATURE VEGETABLES 3 tab PO DAILY Referrals / Follow Up: Chiquis Azul NP, [employer]C [Primary Care Provider] - Disposition Disposition (needs filled in before D/C Order can be placed): Home, Self Care 07/23/23 0719<Electronically signed by Blu Kraus MD>Blu Kraus MD CC: LUCILA Azul ~ Signed [facility] Work Phone: 1([phone]) 861-771501-25-2024 Procedure [facility] 07-22-2023 History and physical note Author Blu Kraus [facility] July 22, 2023 10:59am Note Date/Time July 22, 2023 1 0:59am [facility] Medical Records Department [address] [place] [address] H&P Exam - Surgical 07/22/23 1057 MR#: [id number] Acct: [id number] Name: CYNTHIA WALLACE Rep #:[id number] : 1955 67 From: Blu granados MD PCP: LUCILA Layne Sta tus:[facility] Location: [place] [address] HPI - General HPI Narrative CYNTHIA WALLACE, is a 67 F who presents for elective surgery today. The patient has bilateral breast cancer. Patient is here for bilateral partial mastectomy and bilateral sentinel axillary lymph node biopsy. [facility] Medical History (Updated 07/22/23 @ 10:[address] Blu Kraus MD) Abdominal pain Abnormal mammogram of left breast Abnormal MRI, breast Arthritis Cancer Gastric reflux Hemorrhoids History of echocardiogram History of edema History of hiatal hernia Left breast mass Non-smoker Post-menopausal Triple negative breast cancer Wears glasses Home Medications acetaminophen 325 mg tablet (Tylenol) 1,000 mg (3.0769 x 325 mg) PO Q8H PRN Fever, headache, pain 07/24/18 [Rx Last Taken Unknown] cholecalciferol (vitamin D3) 25 mcg (1,000 unit) capsule 25 mcg PO DAILY 05/17/23 [History Last Taken Unknown] multivitamin 1 tab PO DAILY 05/17/23 [History Last Taken Unknown] nabumetone 500 mg tablet 500 mg PO BID 05/17/23 [History Last Taken Unknown] pantoprazole 40 mg tablet,delayed release 40 mg PO DAILY 05/17/23 [History Last Taken 07/22/23 06:30] BALANCE OF NATURE FRUITS 3 tab PO DAILY 07/14/23 [History Last Taken Unknown] BALANCE OF NATURE VEGETABLES 3 tab PO DAILY 07/14/23 [History Last Taken Unknown] Allergy/AdvReac Type Severity Reaction Status Date / Time No Known Allergies Allergy Verified 07/22/23 08:10 Family History Mother Breast cancer Diabetes Grandmother Breast cancer Sister Breast cancer Father Cancer Prostate and metastatic bone Heart disease Surgical History (Updated 07/14/23 @ 09:50 by Sharri Fisher) H/O: hysterectomy History of foot surgery Total knee replacement status Social History Smoking Status: Never smoker alcohol intake: never ROS Constitutional Constitutional: Reports systems reviewed and no addt'l complaints, except as documented Eyes Eyes: Reports systems reviewed and no addt'l complaints, except as documented ENT HEENT: Reports systems reviewed and no addt'l complaints, except as documented Cardiovascular Cardiovascular: Reports systems reviewed and no addt'l complaints, except as documented Respiratory/Chest Respiratory/Chest: Reports systems reviewed and no addt'l complaints, except as documented Gastrointestinal Gastrointestinal: Reports systems reviewed and no addt'l complaints, except as documented Genitourinary Genitourinary: Reports systems reviewed and no addt'l complaints, except as documented Musculoskeletal Musculoskeletal: Reports systems reviewed and no addt'l complaints, except as documented Integumentary Integumentary: Reports systems reviewed and no addt'l complaints, except as documented Neurologic Neurologic: Reports systems reviewed and no addt'l complaints, except as documented Psychiatric Psychiatric: Reports systems reviewed and no addt'l complaints, except as documented Endocrine Endocrinology: Reports systems reviewed and no addt'l complaints, except as documented Hematologic/Lymphatic Hematologic/Lymphatic: Reports systems reviewed and no addt'l complaints, exceptas documented Allergic/Immunologic Allergic/Immunologic: Reports systems reviewed and no addt'l complaints, except as documented Vital Signs Vital Signs Vital Signs: 07/22/23 08:11 07/22/23 08:11 Temperature 98.6 F Temperature Source Temporal Pulse Rate 76 Respiratory Rate 16 Respiratory Pattern Normal Blood Pressure 175/84 H Blood Pressure Mean 114 Blood Pressure Source Monitor Blood Pressure Position Semi-Fowlers Blood Pressure Location Left Arm Pulse Ox 98 Oxygen Delivery Method Room Air Weight Weight: 200 lb 9.93 oz Body Mass Index (BMI) 35.5 Physical Exam Const oriented x3 and no apparent distress Resp normal respiratory effort and clear to auscultation bilaterally Cardio regular rate and regular rhythm GI soft to palpation and non-tender Results Lab / Micro Data 07/20/23 10:04 07/20/23 10:04 Imagaing Radiology Impression [place] [facility] 07/22/23 07:41 IMPRESSION: Subcutaneous injection of 1.1 mCi of technetium labeled sulfur colloid in 4 equal aliquots in the left periareolar region. Electronically Signed: Flakito Hernández MD at 8:51 EST , [place] [facility] 07/22/23 07:41 IMPRESSION: 1.1 mCi of technetium labeled sulfur colloid was injected subcutaneously in 4 equal aliquots in the right periareolar region for sentinel node imaging. Electronically Signed: Flakito Hernández MD at 8:52 EST , Assessment & Plan Assessment/Plan (1) Bilateral breast cancer: QUALIFIERS: Breast location: overlapping sites of breast Estrogenreceptor status: unspecified Patient sex: female Qualified Code(s): C50.811 - Malignant neoplasm of overlapping sites of right female breast; C50.812 - Malignant neoplasm of overlapping sites of left female breast PLAN: The patient has a triple negative breast cancer on the left and in workup of this she had an MRI which showed a breast mass on the right. The breast horacio the right was biopsied and this came back as an intraductal carcinoma which was ER/SC positive. I discussed performing bilateral partial mastectomies and bilateral sentinel lymph node biopsies with the patient. I also discussed bilateral wire localization and stereotactic. I discussed the procedure in detail as well as the risks including but not limited to bleeding, infection, injury other organs, positive margins need for further surgery, need for axillary dissection or further axillary surgery. Patient understands all the risks and is willing to proceed. As it is a bilateral case I will keep her overnight for observation. All patient's questions were answered and the patient understands and agrees to proceed. Blu Kraus MD Pager: [facility] [address] [place] [address], [address] [place] [address] Office: 07/22/23 105 <Electronically signed by Blu Kraus MD> Cosigner Signature (if applicable): CC: CRUSHER FOREMANSerg Azul; Dr. Blu Kraus MD~ Signed [facility] Work Phone: 1(806) 640-724811-08-2023 Procedure [facility] 06-05-2022 NoteHNO ID: [id number] Author: Jules Miner MD Service: ? Author Type: Physician Type: Progress Notes Filed: 06/07/2022 8:36 AM Note Text: PATIENT NAME: Cynthia Wallace. CLINIC NO: [id number]. ATTENDING PHYSICIAN: Jules Miner MD. DATE OF [...] Abs Lymph 1.00 - 4.00 k/uL 1.85 Collin% % 8.0 Abs Collin <0.87 k/uL 0.53 Eosin% % 1.0 Abs [...] cancer; clinical stage I (more content not included)...[facility]12-09-2022 NoteHNO ID: [id number] Author: Kika Rivera RT(R) Service: Radiology Author Type: Technologist Type: [...] BY: RT Paula(R) June 05, 2022 2:18 [facility]12-09-2022 History of Present illness Narrative* Jules Miner MD - 06/05/2022 3:42 PM EST PATIENT NAME: Cynthia Wallace. CLINIC NO: [id number]. ATTENDING PHYSICIAN: Jules Miner MD. DATE OF [...] not hard but difficult to pass, pencil thin,a/w significant amount of blood (continues until now). [...] No prior history of genital warts or non- genital. No history of blood transfusion. After biopsy was seen by Delfin and was ordered CT scans and MRI of the pelvis. Later approved fora PET/CT. MRI showed extension into the vaginal wall, now with occasional vaginal bleeding. she haslost 15 pounds since her diagnosis 2 months [...] Sclerae white, conjunctivae pink. PEERL. EOMs are intact.Oropharynx is benign. LYMPHATICS: There is no palpable [...] Abs Lymph 1.00 - 4.00 k/uL 1.85 Collin% % 8.0 Abs Collin <0.87 k/uL 0.53 Eosin% % 1.0 Abs [...] stage IIIc, squamous cell carcinoma, - Clinical DEMERTIA; concurrent chemoradiation after 4 years Plan: -Follow-up [...] updated as necessary. Jules Miner MD Cc: ISHA Masters MD [facility] History of Present illness Narrative* Kika Rivera, RT(R) - 06/05/2022 2:30 PM EST Radiology Service Progress Note PATIENT NAME: Cynthia Wallace DATE OF SERVICE: June 05, 2022 TIME: 2:18 PM PATIENT IDENTITY VERIFICATION COMPLETED USING TWO (2) IDENTIFIERS: Name and Date of confirmedby patient verbally. FALL SCREENING: Has the patient [...] RT Paula(R) June 05, 2022 2:18 PM [facility]22 Note. MICRO - Microbiology PROCEDURE: Urine Culture [*1] [...] Locations *1: This test was performed at: [address], [facility] ([place])11-26-2021 NoteHNO ID: [id number] Author: Marisel Barrientos RN Service: Radiology Author [...] Wallace DATE: November 26, 2021 TIME: 8:56 [facility]06-01-2022 NoteHNO ID: [id number] Author: JAKOB Sosa) Service: Radiology Author Type: [...] and Intact, Site disposition Discontinued SIGNED BY: JAKOB Gage) November 26, 2021 10:14 [facility]06-01-2022 History of Present illness Narrative* JAKOB Sosa) - 11/26/2021 8:30 AM EDT Radiology Service Progress Note PATIENT NAME: Cynthia Wallace DATE OF SERVICE: November 26, 2021 TIME: 10:14 AM PATIENT IDENTITY VERIFICATION COMPLETED USING TWO (2) IDENTIFIERS: Name and Date of confirmedby patient verbally and Name and Date of [...] RT Merari(R) November 26, 2021 10:14 AM * Marisel Barrientos RN - 11/26/2021 8:30 AM EDT Radiology Service Progress Note DATE [...] Left antecubital site with a Angio cath: 22gauge. and A Saline lock was inserted per protocol IV SITE APPEARANCE: Clean,Dry and Intact SIGNATURE: Marisel Barrientos RN PATIENT NAME: Cynthia Wallace DATE: November 26, 2021 TIME: 8:56 AM documented [facility] note Author Stephon Diaz [facility] July 23, 2023 10:15am Note Date/Time July 23, 2023 1 0:15am [facility] Medical Records Department [address] [place] [address] Counseling Note - Pharmacy 07/23/23 1014 MR#: [id number] Acct: [id number] Name: CYNTHIA WALLACE Rep #:[id number] : 1955 67 From: Stephon Diaz PCP: LUCILA Layne tus:ADM ZACK Y Location: [place] TO966-7 Pharmacy [facility] has performed discharge medication reconciliation and counseling for this patient. The patient's discharge medication list was reviewed for discrepancies and discrepancies were resolved. The patient was counseled on the following discharge medications and changes in medications for homegoing were reviewed. The Reason for Use, instructions for use, and potential side effects were reviewed for all new medications. The patient's questions regarding all of their medications were answered. 1. Oxycodone 5-10 mg Q4H PRN pain. The patient was able to verbally demonstrate an understanding of their dischargemedications. Medications at Discharge Home Medications acetaminophen 325 mg tablet (Tylenol) 1,000 mg (3.0769 x 325 mg) PO Q8H PRN Fever, headache, pain 07/24/18 cholecalciferol (vitamin D3) 25 mcg (1,000 unit) capsule 25 mcg PO DAILY 05/17/23 multivitamin 1 tab PO DAILY 05/17/23 nabumetone 500 mg tablet 500 mg PO BID 05/17/23 pantoprazole 40 mg tablet,delayed release 40 mg PO DAILY 05/17/23 BALANCE OF NATURE FRUITS 3 tab PO DAILY 07/14/23 BALANCE OF NATURE VEGETABLES 3 tab PO DAILY 07/14/23 oxycodone 5 mg tablet 5 - 10 mg (1 - 2 x 5 mg) PO Q4H PRN PRN Pain Score 4-10 5 days #30 tabs 07/23/23 07/23/23 1015 <Electronically signed by Stephon Putnam r> Date _ Stephon Jordan Signature (if applicable): Date CC: ~ Signed [facility] Work Phone: Discharge summary Author Blu Kraus [facility] August 16, 2023 8:04am Note Date/Time August 16, 2023 8:04am [facility] Medical Records Department [address] [place] [address] Instructions for Home/Discharge Instructions 08/16/2304 MR#: [id number] Acct: [id number] Name: CYNTHIA WALLACE Rep #:[id number] : 1955 68 From: Blu granados MD PCP: LUCILA aLyne Sta tus:REG SDC Discharge Instructions Procedure Port-A-Cath Diet Discharge Diet: Light diet - advance as tolerated (Pain medication may cause nausea. You should typically eat light foods as you take your pain medication.) Activity Discharge Activity: Return to Normal Activity and May Shower (with your bandage in place in 1-2 days after surgery. DO NOT SHOWER WHEN YOUR PORT IS ACCESSED.) Dressing / Incision Call your doctor if your incision/area has: Continuous Slow Oozing, Sudden Increased Bleeding, Increased Pain/ Swelling, Increased Redness and Foul Smelling Discharge Call your doctor if you observe: Fever of 101 or Higher Remove Dressing in: 2 days Cleanse incision/area with: Soap & Water Follow Up Care Please Follow Up With: Blu Kraus MD When: as needed [phone] Test Results: Test results from this visit will be discussed in further detail at your follow- up appointment, if applicable. Discharge Plan Admission Attending Provider: Blu Kraus Primary Care Provider: Chiquis Azul NP Instructions Additional Instructions / Restrictions: Alternate ibuprofen and Tylenol for pain Discharge Orders/Prescriptions Prescriptions: No Action multivitamin Tablet 1 tab PO DAILY pantoprazole 40 mg tablet,delayed release (DR/EC) 40 mg PO DAILY nabumetone 500 mg tablet 500 mg PO BID cholecalciferol (vitamin D3) 25 mcg (1,000 unit) capsule 25 mcg PO DAILY acetaminophen [Tylenol] 325 MG tablet 1,000 mg PO Q8H PRN (Reason: Fever, headache, pain) 0RF BALANCE OF NATURE FRUITS 3 tab PO DAILY BALANCE OF NATURE VEGETABLES 3 tab PO DAILY Referrals / Follow Up: Chiquis Azul NP, CRUSHER FOREMAN-C [Primary Care Provider] - Disposition Disposition (needs filled in before D/C Order can be placed): Home, Self Care 08/16/23 0804<Electronically signed by Blu Kraus MD>Blu Kraus MD CC: CRUSHER FOREMANVickyC Chiquis Azul ~ Signed [facility] Work Phone: evaluation + Plan note No data available for this section [facility] Evaluation + Plan note Future Appointments Appointment Date:03/31/2024 09:40:00 AM Scheduled Provider:CHIQUIS AZUL APRN - ISHA Location:[facility] Appointment Type:PC OV Follow Up Diagnostic Tests Pending * Renin Activity, Plasma 03/23/24 Future Scheduled Tests Laboratory* Renin, Plasma 03/10/23 * C-Reactive Protein 11/01/23 * D-Dimer 11/01/23 * Complete Blood Count 11/01/23 * Complete Blood Count 09/10/23 * Lipid Profile 09/10/23 * Albumin/Creatinine Ratio, Random Urine 09/10/23 * Albumin/Creatinine Ratio, Random Urine 03/26/24 * Microalbumin Level Urine 03/10/23 * Vitamin D Level 09/10/23 * Complete Metabolic Panel 11/01/23 * Complete Metabolic Panel 09/10/23 [facility] evaluation note* Diagnosis Malignant neoplasm of rectosigmoid junction (HCC) Malignant neoplasm of rectosigmoid junction [facility] noteNo assessment information availableWOhioHealth [facility] Work Phone: evaluation note* Diagnosis Onset Date Resolution Status Left breast mass acute [facility] Work Phone: evaluation note* Diagnosis Anal cancer (HCC)- Primary Malignant neoplasm of anus, unspecified site [facility] Diagnosis Onset Date Resolution Status Left breast mass acute Triple negative breast cancer acute Triple negative breast cancer acute [facility] Work Phone: evaluation note* Diagnosis Onset Date Resolution Status Left breast mass acute Triple negative breast cancer acute Triple negative breast cancer acute Breast mass, right acute [facility] Work Phone: Evaluation note* Diagnosis Onset Date Resolution Status Left breast mass acute Triple negative breast cancer acute Triple negative breast cancer acute Breast mass, right acute Bilateral breast cancer acut e [facility] Work Phone: Evaluation note* Diagnosis Onset Date Resolution Status Left breast mass acute Triple negative breast cancer acute Triple negative breast cancer acute Breast mass, right acute Bilateral breast cancer reso lved Breast cancer acute DCIS (ductal carcinoma in situ) acute Triple negative breast cancer acute Triple negative breast cancer acute [facility] Work Phone: Evaluation note* Diagnosis Anal cancer (HCC) Malignant neoplasm of anus, unspecified site [facility] No data available for this section [facility] Hospital Discharge instructions Additional Instructions Implant Used?: YesWOhio[facility] Work Phone: Hospital Discharge instructionsAmbulatory Orders* OT Referral Location: None Selected [facility] Work Phone: Progress note No data available for this section [facility] Reason for referral (narrative)No reason for referral information availableWOhioHealth [facility] Work Phone: Reason for Referral Specialty Diagnoses / Procedures Referred By Nunu don Referred To Contact MR IMAGING Diagnoses Malignant neoplasm of rectosigmoid junction (HCC) Procedures MRI RECTUM WO/W IVCON MRI PELVIS W/WO CONTRAST Thania Lenz MD [address] [place] [address] Mr Imaging Referral ID Status Reason Start Date Expiration Date V isits Requested Visits Authorized Closed Auto-Generate d Referral 04/11/2021 05/11/2022 1 1 Advance Directives No Advanced Directives Records FoundDocuments on File Type Date Recorded Patient Civil Celebrant Expl anation Advance Directive(s) 08/08/2019 1:14 PM Advance Directive(s) 07/31/2019 4:22 PM Advance Directive Response Recorded Date/ Time Advance Directives No December 22 3:05pm Living Will Yes November 15, 2019 4 :25pm Power of Cargo [employer] R[employer] Services Manager Yes November 15, 2019 4:25pm Advance Directive Response Recorded Date/ Time Advance Directives No December 22 2:05pm Living Will Yes November 15, 2019 3 :25pm Power of Cargo And Ramp Services Manager Yes November 15, 2019 3:25pm Advance Directive Response Recorded Date/ Time Advance Directives No May 9:18am Living Will Yes June 23, 9:18am Power of Cargo And Ramp Services Manager No June 23, 2023 9:18am Advance Directive Response Recorded Date/ Time Advance Directives No May 9:18am Living Will Yes July 22 5:06pm Power of Cargo And Ramp Services Manager No July 22, 2023 5:06pm Advance Directive Response Recorded Date/ Time Advance Directives No May 9:18am Living Will Yes August 06 2:45pm Power of Cargo And Ramp Services Manager No August 06, 2023 2:45pm Advance Directive Response Recorded Date/ Time Advance Directives No December 22 2:05pm Living Will Yes May 31 8:40am Power of Cargo And Ramp Services Manager No May 31, 2023 8:40am Advance Directive Response Recorded Date/ Time Living Will No October 22, 2023 2:28pm Do you have a Healthcare Power of Cargo And Ramp Services Manager? No October 22, 2023 2:28pm Living Will No March 23, 2024 10:08am Do you have a Healthcare Power of Cargo And Ramp Services Manager? No March 23, 2024 10:08am Advance Directives No October 21 2:28pm Advance Directive Response Recorded Date/ Time Living Will No October 22, 2023 2:28pm Do you have a Healthcare Power of Cargo And Ramp Services Manager? No October 22, 2023 2:28pm Living Will No March 23, 2024 10:08am Do you have a Healthcare Power of Cargo And Ramp Services Manager? No March 23, 2024 10:08am Advance Directives on File No October 22, 2023 2:28pm Advance Directives No October 21 2:28pm Advance Directive Response Recorded Date/ Time Living Will No March 23, 2024 10:08am Do you have a Healthcare Power of Cargo And Ramp Services Manager? No March 23, 2024 10:08am Advance Directives on File No October 22, 2023 2:28pm Living Will No October 22, 2023 2:28pm Do you have a Healthcare Power of Cargo And Ramp Services Manager? No October 22, 2023 2:28pm Advance Directives No October 21 2:28pm Advance Directive Response Recorded Date/ Time Advance Directives No October 21 2:28pm Chief Complaint and Reason for Visit Chief Complaint ABDOMINAL PAIN, ACUT E LOW BACK PAIN, CANCER Chief Complaint ABDOMINAL PAIN, ACUT E LOW BACK PAIN, CANCER SCREENING ABN MAMM Chief Complaint ABDOMINAL PAIN, ACUT E LOW BACK PAIN, CANCER SCREENING ABN MAMM LEFT BIRADS 4 Chief Complaint ABDOMINAL PAIN, ACUT E LOW BACK PAIN, CANCER SCREENING ABN MAMM LEFT BIRADS 4 ABN LT BREAST MASS Reason for Visit Left breast mass Chief Complaint SCREENING LT BREAST ABN MAMM Chief Complaint SCREENING LT BREAST ABN MAMM L BREAST BIRADS 4 ABNORMAL BI LEFT SIDE ABNORMAL BI LEFT SIDE Reason for Visit Left breast mass Chief Complaint SCREENING LT BREAST ABN MAMM L BREAST BIRADS 4 ABNORMAL BI LEFT SIDE ABNORMAL BI LEFT SIDE NEW PT - BREAST CANCER PORT PLACEMENT MALIGNANT YONG OF UNSPECIEFIED SITE OF UNSPECIFIED INFECTION FOLLOWING A PROCEDURE OTHER SURGICAL SIT R92.8 Other abnormal and inconclusive findings on Reason for Visit Left breast mass Triple negative breast cancer Triple negative breast cancer Chief Complaint SCREENING LT BREAST ABN MAMM L BREAST BIRADS 4 ABNORMAL BI LEFT SIDE ABNORMAL BI LEFT SIDE NEW PT - BREAST CANCER PORT PLACEMENT MALIGNANT YONG OF UNSPECIEFIED SITE OF UNSPECIFIED INFECTION FOLLOWING A PROCEDURE OTHER SURGICAL SIT R92.8 Other abnormal and inconclusive findings on right breast biopsy RIGHT BREAST MASS Reason for Visit Left breast mass Triple negative breast cancer Triple negative breast cancer Breast mass, right Chief Complaint SCREENING LT BREAST ABN MAMM L BREAST BIRADS 4 ABNORMAL BI LEFT SIDE ABNORMAL BI LEFT SIDE NEW PT - BREAST CANCER PORT PLACEMENT MALIGNANT YONG OF UNSPECIEFIED SITE OF UNSPECIFIED INFECTION FOLLOWING A PROCEDURE OTHER SURGICAL SIT R92.8 Other abnormal and inconclusive findings on right breast biopsy RIGHT BREAST MASS PREOP Bilateral partial Mastectomies w/bi BILATERAL BREAST CANCER Reason for Visit Left breast mass Triple negative breast cancer Triple negative breast cancer Breast mass, right Bilateral breast cancer Chief Complaint SCREENING LT BREAST ABN MAMM L BREAST BIRADS 4 ABNORMAL BI LEFT SIDE ABNORMAL BI LEFT SIDE NEW PT - BREAST CANCER PORT PLACEMENT MALIGNANT YONG OF UNSPECIEFIED SITE OF UNSPECIFIED INFECTION FOLLOWING A PROCEDURE OTHER SURGICAL SIT R92.8 Other abnormal and inconclusive findings on right breast biopsy RIGHT BREAST MASS PREOP Bilateral partial Mastectomies w/bi BILATERAL BREAST CANCER 1 WK FU,Bilateral partial Mastectomies DOS 07/22 growth factor 3 WKS POST OP - LABS Insertion, Vascular Port Insertion, Vascular Port Reason for Visit Left breast mass Triple negative breast cancer Triple negative breast cancer Breast mass, right Bilateral breast cancer Breast cancer DCIS (ductal carcinoma in situ) Triple negative breast cancer Triple negative breast cancer Chief Complaint SCREENING LT BREAST ABN MAMM L BREAST BIRADS 4 ABNORMAL BI LEFT SIDE ABNORMAL BI LEFT SIDE NEW PT - BREAST CANCER PORT PLACEMENT MALIGNANT YONG OF UNSPECIEFIED SITE OF UNSPECIFIED INFECTION FOLLOWING A PROCEDURE OTHER SURGICAL SIT Reason for Visit Left breast mass Triple negative breast cancer Triple negative breast cancer Chief Complaint Admit Date 4 MONTH F/U BREAST June 13, 2024 9:24am FOLLOW UP July 04, 2024 9: 54am LYMPHEDEMA, RX HERE July 04, 2024 11 :00am PRODUCTIVE COUGH, SOB, AND WHEEZING Dwain farideh 2024 4:06pm treated bilateral breast cancer, annual mammograph July 27, 2024 9:09am 1 M F/U August 03, 2024 1 :30pm Reason for Visit Admit Date Ductal carcinoma in situ (DCIS) of right breast June 13, 2024 9:24am Triple negative breast cancer May 282023 9:24am Lymphedema July 04, 2024 9: 54am Lymphedema August 03, 2024 1 :30pm Chief Complaint Admit Date 4 MONTH F/U BREAST June 13, 2024 9:24am FOLLOW UP July 04, 2024 9: 54am LYMPHEDEMA, RX HERE July 04, 2024 11 :00am PRODUCTIVE COUGH, SOB, AND WHEEZING Dwain farideh 2024 4:06pm treated bilateral breast cancer, annual mammograph July 27, 2024 9:09am 1 M F/U August 03, 2024 1 :30pm CKD STAGE 3 October 05, 2024 12: 55pm RADIATION October 10, 2024 10: 45am 6MO LABS October 10, 2024 10: 51am Reason for Visit Admit Date Ductal carcinoma in situ (DCIS) of right breast June 13, 2024 9:24am Triple negative breast cancer May 282023 9:24am Lymphedema July 04, 2024 9: 54am Lymphedema August 03, 2024 1 :30pm Ductal carcinoma in situ (DCIS) of right breast October 10, 2024 10:51am Triple negative breast cancer September 10:51am Chief Complaint Admit Date CKD STAGE 3 October 05, 2024 12: 55pm RADIATION October 10, 2024 10: 45am 6MO LABS October 10, 2024 10: 51am 4 MONTH F/U BREAST October 12, 2024 12: 17pm 2 M FU October 19, 2024 1:1 1pm Reason for Visit Admit Date Ductal carcinoma in situ (DCIS) of right breast October 10, 2024 10:51am Triple negative breast cancer September 10:51am Ductal carcinoma in situ (DCIS) of right breast October 12, 2024 12:17pm Triple negative breast cancer September 12:17pm Lymphedema October 19, 2024 1:1 1pm Chief Complaint Admit Date CKD STAGE 3 October 05, 2024 12: 55pm RADIATION October 10, 2024 10: 45am 6MO LABS October 10, 2024 10: 51am 4 MONTH F/U BREAST October 12, 2024 12: 17pm 2 M FU October 19, 2024 1:1 1pm PAIN AND SWELLING January 04, 2025 1:47 pm US results January 05, 2025 9:41 am Chief Complaint Admit Date CKD STAGE 3 October 05, 2024 12: 55pm RADIATION October 10, 2024 10: 45am 6MO LABS October 10, 2024 10: 51am 4 MONTH F/U BREAST October 12, 2024 12: 17pm 2 M FU October 19, 2024 1:1 1pm PAIN AND SWELLING January 04, 2025 1:47 pm US results January 05, 2025 9:41 am LEFT SHOULDER, COMPRESSION. RX HERE January 11, 2025 1:00pm Reason for Visit Admit Date Ductal carcinoma in situ (DCIS) of right breast October 10, 2024 10:51am Triple negative breast cancer September 10:51am Ductal carcinoma in situ (DCIS) of right breast October 12, 2024 12:17pm Triple negative breast cancer September 12:17pm Lymphedema October 19, 2024 1:1 1pm Lymphedema January 05, 2025 9:41 am Chief Complaint Admit Date 2 M FU October 19, 2024 1:1 1pm PAIN AND SWELLING January 04, 2025 1:47 pm US results January 05, 2025 9:41 am LEFT SHOULDER, COMPRESSION. RX HERE 2024 11:30am 4 MONTH BREAST February 15, 2025 9: 44am Reason for Visit Admit Date Lymphedema October 19, 2024 1:1 1pm Lymphedema January 05, 2025 9:41 am Ductal carcinoma in situ (DCIS) of right breast February 15, 2025 9:44am Triple negative breast cancer January 9:44am Chief Complaint Admit Date PAIN AND SWELLING January 04, 2025 1:47 pm US results January 05, 2025 9:41 am 4 MONTH BREAST February 15, 2025 9: 44am LEFT SHOULDER, COMPRESSION. RX HERE [facility] 2024 3:30pm Reason for Visit Admit Date Lymphedema January 05, 2025 9:41 am Ductal carcinoma in situ (DCIS) of right breast February 15, 2025 9:44am Triple negative breast cancer January 9:44am Chief Complaint Admit Date PAIN AND SWELLING January 04, 2025 1:47 pm US results January 05, 2025 9:41 am 4 MONTH BREAST February 15, 2025 9: 44am LEFT SHOULDER, COMPRESSION. RX HERE 2024 3:30pm 2 M FU March 09, 2025 1:49pm Family History No Family History Records Found Relationship Condition Age at Onset Recorded Date/T brian mother Malignant neoplasm of breast Unknown Diabetes mellitus Unknown grandmother Malignant neoplasm of breast Unknown sister Malignant neoplasm of breast Unknown Relationship Condition Age at Onset Recorded Date/T brian mother Malignant neoplasm of breast Unknown Diabetes mellitus Unknown grandmother Malignant neoplasm of breast Unknown sister Malignant neoplasm of breast Unknown father Malignant neoplasm Unknown Cardiac disease Unknown Summary Purpose Additional Source Comments Source Comments (unrecognize d section and content) In the event this informatio n is protected by the Federal Confidentiality of Alcohol and Drug Abuse Patient Records regulations: The Federal rules restrict any use of the information to criminally investigate or prosecute any alcohol or drug abuse patient.[facility] Center[facility] the event this information is protected by the Federal Confidentiality of Alcohol and Drug Abuse Patient Records regulations: The Federal rules restrict any use of the information to criminally investigate or prosecute any alcohol or drug abuse patient.[facility] Center[facility] the event this information is protected by the Federal Confidentiality of Alcohol and Drug Abuse Patient Records regulations: The Federal rules restrict any use of the information to criminally investigate or prosecute any alcohol or drug abuse patient.[facility] Reason for Visit (unrecogniz ed section and content) Reason Comments Radiology MRI Specialty Diagnoses / Procedures Referred By Contac t Referred To Contact MR IMAGING Diagnoses Malignant neoplasm of rectosigmoid junction (HCC) Procedures MRI RECTUM WO/W IVCON MRI PELVIS W/WO CONTRAST Thania Lenz MD [address] [place] [address] Mr Imaging Referral ID Status Reason Start Date Expiration Date V isits Requested Visits Authorized [id number] Closed Auto-Generate d Referral 04/11/2021 05/11/2022 1 1 Reason Comments Established Patient Care Teams (unrecognized sec tion and content) Speech And Drama Teacher Relationship Specialty Start Date End Date Be Esquivel DO PCP - General Family Practice 04/22/18 Lina Stewart Referring General Surgery 04/22/18 Charissa Stack MD, [address] [place], [place] [id number] Physician Radiation Oncology 06/01/18 Speech And Drama Teacher Relationship Specialty Start Date End Date LathaChiquis, MULESER [address] [facility] [address] PCP - General Family Medicine 04/20/22 Lina Stewart Referring General Surgery 04/22/18 Charissa Stack MD, [address] [facility] [address] [address] [place], [place] [id number] Physician Radiation Oncology 06/01/18 Team Status: Active Member Role Status Dates Dr. Be Esquivel , Family Provider Active Chiquis Azul CRUSHER FOREMAN, CRUSHER FOREMAN-C Primary Care Provider Active Team Status: Inactive Member Role Status Dates Chiquis Azul CRUSHER FOREMAN, CRUSHER FOREMAN-C Primary Care Provider, Attending Provider, Referring Provider Active Team Status: Active Member Role Status Dates Chiquis Azul CRUSHER FOREMAN, CRUSHER FOREMAN-C Primary Care Provider, Attending Provider, Referring Provider Active Team Status: Inactive Member Role Status Dates Chiquis Azul CRUSHER FOREMAN, CRUSHER FOREMAN-C Primary Care Provider, Referring Provider Active Dr. Blu Kraus MD Attending Provider Active Team Status: Active Member Role Status Dates Chiquis Azul CRUSHER FOREMAN, CRUSHER FOREMAN-C Primary Care Provider Active Dr. Blu Kraus MD Attending Pr ovider, Referring Provider, Other Provider Active Team Status: Inactive Member Role Status Dates Chiquis Azul CRUSHER FOREMAN, CRUSHER FOREMAN-C Primary Care Provider Active Dr. Blu Kraus MD Attending Provider, Referr ing Provider Active Team Status: Inactive Member Role Status Dates Chiquis Azul CRUSHER FOREMAN, CRUSHER FOREMAN-C Primary Care Provider, Referring Provider Active Dr. Romain Griffin MD Attending Provider Active Team Status: Active Member Role Status Dates Chiquis Azul CRUSHER FOREMAN, CRUSHER FOREMAN-C Primary Care Provider Active Dr. Juliano Gibbs MD Attending Provider, Referring Pro vider Active Team Status: Inactive Member Role Status Dates Chiquis Azul CRUSHER FOREMAN, CRUSHER FOREMAN-C Primary Care Provider Active Dr. Romain Griffin MD Attending Provider, Referring Pro vider Active Team Status: Inactive Member Role Status Dates Chiquis Azul CRUSHER FOREMAN, CRUSHER FOREMAN-C Primary Care Provider Active Dr. Romain Griffin MD Attending Provider Active Team Status: Active Member Role Status Dates Chiquis Azul CRUSHER FOREMAN, CRUSHER FOREMAN-C Primary Care Provider Active Dr. Adolph Sands MD Attending Provider Active Dr. Blu Kraus MD Referring Provider Active Team Status: Inactive Member Role Status Dates Chiquis Azul CRUSHER FOREMAN, CRUSHER FOREMAN-C Primary Care Provider Active Dr. Blu Kraus MD Admit Provid er, Attending Provider, Referring Provider Active Team Status: Active Member Role Status Dates Chiquis Azul CRUSHER FOREMAN, CRUSHER FOREMAN-C Primary Care Provider Active Dr. Romain Griffin MD Attending Provider, Referring Pro vider Active Speech And Drama Teacher Relationship Specialty Start Date End Date Chiquis Azul CNP [address] [place] [address] PCP - General Family Medicine 04/20/22 Lina Stewart MD Referring General Surgery 04/22/18 Charissa Stack MD [address] [place] [address] Physician Radiation Oncology 06/01/18 Team Status: Active Member Role Status Dates Chiquis Azul CRUSHER FOREMAN, CRUSHER FOREMAN-C Primary Care Provider Active Dr. Romain Griffin MD Attending Provider Active Team Status: Active Member Role Status Dates Chiquis Auzl CRUSHER FOREMAN, CRUSHER FOREMAN-C Primary Care Provider Active Dr. Juliano Gibbs MD Attending Provider Active Team Status: Active Member Role Status Dates Chiquis Azul CRUSHER FOREMAN, CRUSHER FOREMAN-C Primary Care Provider Active Team Status: Inactive Member Role Status Dates Dr. Germán Gonzalez DO Attending Provider Active Start: June 13, 2024 End: June 13, 2024 Team Status: Inactive Member Role Status Dates Dee Carr NP, CRUSHER FOREMAN-C Attending Provider Active Start: July 04, 2024 End: July 04, 2024 Team Status: Inactive Member Role Status Dates Chiquis Azul CRUSHER FOREMAN, CRUSHER FOREMAN-C Primary Care Provider Active Start: June End: July 04, 2024 Dr. Blu Kraus MD Attending Provider Active Start: July 04, 2024 End: July 04, 2024 Dr. Blu Kraus MD Referring Provider Active Start: July 04, 2024 End: July 04, 2024 Team Status: Inactive Member Role Status Dates Dr. Germán Goznalez DO Primary Care Provider Active Start: July 24, 2024 End: July 24, 2024 Chiquis Azul CRUSHER FOREMAN, CRUSHER FOREMAN-C Attending Provider Active Start: July 24, 2024 End: July 24, 2024 Chiquis Azul NP, CRUSHER FOREMAN-C Referring Provider Active Start: July 24, 2024 End: July 24, 2024 Team Status: Inactive Member Role Status Dates Dr. Germán Gonzalez DO Primary Care Provider Active Start: July 27, 2024 End: July 27, 2024 Dr. Germán Gonzalez DO Attending Provider Active Start: July 27, 2024 End: July 27, 2024 Dr. Germán Gonzalez DO Referring Provider Active Start: July 27, 2024 End: July 27, 2024 Team Status: Inactive Member Role Status Dates Dr. Celso Rod MD Attending Provider Active Start: August 03, 2024 End: August 03, 2024 Dr. Germán Gonzalez DO Primary Care Provider Active Start: August 03, 2024 End: August 03, 2024 Dr. Germán Gonzalez DO Referring Provider Active Start: August 03, 2024 End: August 03, 2024 Team Status: Inactive Member Role Status Dates Chiquis Azul CRUSHER FOREMAN, CRUSHER FOREMAN-C Primary Care Provider Active Start: September 28, 2024 End: September 28, 2024 Chiquis Azul CRUSHER FOREMAN, CRUSHER FOREMAN-C Attending Provider Ac tive Start: September 28, 2024 End: September 28, 2024 Chiquis Azul CRUSHER FOREMAN, CRUSHER FOREMAN-C Referring Provider Ac tive Start: September 28, 2024 End: September 28, 2024 Team Status: Inactive Member Role Status Dates Chiquis Azul CRUSHER FOREMAN, CRUSHER FOREMAN-C Primary Care Provider Active Start: October 05, 2024 End: October 05, 2024 Chiquis Azul CRUSHER FOREMAN, CRUSHER FOREMAN-C Attending Provider Ac tive Start: October 05, 2024 End: October 05, 2024 Chiquis Azul CRUSHER FOREMAN, CRUSHER FOREMAN-C Referring Provider Ac tive Start: October 05, 2024 End: October 05, 2024 Team Status: Active Member Role Status Dates Chiquis Azul CRUSHER FOREMAN, CRUSHER FOREMAN-C Primary Care Provider Active Start: October 10, 2024 Dr. Romain Griffin MD Attending Provider Active S tart: October 10, 2024 Dr. Romain Griffin MD Referring Provider Active S tart: October 10, 2024 Lois Marsh CRUSHER FOREMAN, CRUSHER FOREMAN-C Other Provider Active St art: October 10, 2024 Team Status: Inactive Member Role Status Dates Dr. Romain Griffin MD Attending Provider Active S tart: October 10, 2024 End: October 10, 2024 Chiquis Azul CRUSHER FOREMAN, CRUSHER FOREMAN-C Primary Care Provider Active Start: October 10, 2024 End: October 10, 2024 Chiquis Azul CRUSHER FOREMAN, CRUSHER FOREMAN-C Referring Provider Ac tive Start: October 10, 2024 End: October 10, 2024 Team Status: Active Member Role/Relationship Status Dates Chiquis Azul CRUSHER FOREMAN, CRUSHER FOREMAN-C Primary Care Provider Active Team Status: Inactive Member Role/Relationship Status Dates Chiquis Azul CRUSHER FOREMAN, CRUSHER FOREMAN-C Primary Care Provider Active Start: September 28, 2024 End: September 28, 2024 Chiquis Azul CRUSHER FOREMAN, CRUSHER FOREMAN-C Attending Provider Ac tive Start: September 28, 2024 End: September 28, 2024 Chiquis Azul CRUSHER FOREMAN, CRUSHER FOREMAN-C Referring Provider Ac tive Start: September 28, 2024 End: September 28, 2024 Team Status: Inactive Member Role/Relationship Status Dates Chiquis Azul CRUSHER FOREMAN, CRUSHER FOREMAN-C Primary Care Provider Active Start: October 05, 2024 End: October 05, 2024 Chiquis Azul CRUSHER FOREMAN, CRUSHER FOREMAN-C Attending Provider Ac tive Start: October 05, 2024 End: October 05, 2024 Chiquis Azul CRUSHER FOREMAN, CRUSHER FOREMAN-C Referring Provider Ac tive Start: October 05, 2024 End: October 05, 2024 Team Status: Active Member Role/Relationship Status Dates Chiquis Azul CRUSHER FOREMAN, CRUSHER FOREMAN-C Primary Care Provider Active Start: October 10, 2024 Dr. Romain Griffin MD Attending Provider Active S tart: October 10, 2024 Dr. Romain Griffin MD Referring Provider Active S tart: October 10, 2024 Lois Marsh CRUSHER FOREMAN, CRUSHER FOREMAN-C Other Provider Active St art: October 10, 2024 Team Status: Inactive Member Role/Relationship Status Dates Dr. Romain Griffin MD Attending Provider Active S tart: October 10, 2024 End: October 10, 2024 Chiquis Azul CRUSHER FOREMAN, CRUSHER FOREMAN-C Primary Care Provider Active Start: October 10, 2024 End: October 10, 2024 Chiquis Azul CRUSHER FOREMAN, CRUSHER FOREMAN-C Referring Provider Ac tive Start: October 10, 2024 End: October 10, 2024 Team Status: Inactive Member Role/Relationship Status Dates Dr. Germán Gonzalez DO Attending Provider Active Start: October 12, 2024 End: October 12, 2024 Chiquis Azul CRUSHER FOREMAN, CRUSHER FOREMAN-C Primary Care Provider Active Start: October 12, 2024 End: October 12, 2024 Team Status: Inactive Member Role/Relationship Status Dates Dr. Germán Gonzalez DO Referring Provider Active Start: October 19, 2024 End: October 19, 2024 Dr. Celso Rod MD Attending Provider Active Start: October 19, 2024 End: October 19, 2024 Chiquis Azul CRUSHER FOREMAN, CRUSHER FOREMAN-C Primary Care Provider Active Start: October 19, 2024 End: October 19, 2024 Team Status: Inactive Member Role/Relationship Status Dates Chiquis Azul CRUSHER FOREMAN, CRUSHER FOREMAN-C Primary Care Provider Active Start: December 21, 2024 End: December 21, 2024 Chiquis Azul CRUSHER FOREMAN, CRUSHER FOREMAN-C Attending Provider Ac tive Start: December 21, 2024 End: December 21, 2024 Chiquis Azul CRUSHER FOREMAN, CRUSHER FOREMAN-C Referring Provider Ac tive Start: December 21, 2024 End: December 21, 2024 Team Status: Active Member Role/Relationship Status Dates Chiquis Azul CRUSHER FOREMAN, CRUSHER FOREMAN-C Primary Care Provider Active Start: January 04, 2025 Dr. Celso Rod MD Attending Provider Active Start: January 04, 2025 Dr. Celso Rod MD Referring Provider Active Start: January 04, 2025 Team Status: Active Member Role/Relationship Status Dates Chiquis Azul CRUSHER FOREMAN, CRUSHER FOREMAN-C Primary Care Provider Active Start: January 04, 2025 Dr. Pillo Kaur MD Attending Provider Active S tart: January 04, 2025 Team Status: Inactive Member Role/Relationship Status Dates Chiquis Azul CRUSHER FOREMAN, CRUSHER FOREMAN-C Primary Care Provider Active Start: January 05, 2025 End: January 05, 2025 Chiquis Azul CRUSHER FOREMAN, CRUSHER FOREMAN-C Referring Provider Ac tive Start: January 05, 2025 End: January 05, 2025 Dr. eClso Rod MD Attending Provider Active Start: January 05, 2025 End: January 05, 2025 Team Status: Inactive Member Role/Relationship Status Dates Chiquis Azul CRUSHER FOREMAN, CRUSHER FOREMAN-C Primary Care Provider Active Start: January 04, 2025 End: January 04, 2025 Dr. Celso Rod MD Attending Provider Active Start: January 04, 2025 End: January 04, 2025 Dr. Celso Rod MD Referring Provider Active Start: January 04, 2025 End: January 04, 2025 Team Status: Active Member Role/Relationship Status Dates Chiquis Azul CRUSHER FOREMAN, CRUSHER FOREMAN-C Primary Care Provider Active Start: January 11, 2025 Dr. Celso Rod MD Attending Provider Active Start: January 11, 2025 Team Status: Inactive Member Role/Relationship Status Dates Dr. Germán Gonzalez DO Referring Provider Active Start: October 19, 2024 End: October 19, 2024 Dr. Celso Rod MD Attending Provider Active Start: October 19, 2024 End: October 19, 2024 Chiquis Azul CRUSHER FOREMAN, CRUSHER FOREMAN-C Primary Care Provider Active Start: October 19, 2024 End: October 19, 2024 Team Status: Inactive Member Role/Relationship Status Dates Chiquis Azul CRUSHER FOREMAN, CRUSHER FOREMAN-C Primary Care Provider Active Start: December 21, 2024 End: December 21, 2024 Chiquis Azul CRUSHER FOREMAN, CRUSHER FOREMAN-C Attending Provider Ac tive Start: December 21, 2024 End: December 21, 2024 Chiquis Azul CRUSHER FOREMAN, CRUSHER FOREMAN-C Referring Provider Ac tive Start: December 21, 2024 End: December 21, 2024 Team Status: Inactive Member Role/Relationship Status Dates Chiquis Azul CRUSHER FOREMAN, CRUSHER FOREMAN-C Primary Care Provider Active Start: January 04, 2025 End: January 04, 2025 Dr. Celso Rod MD Attending Provider Active Start: January 04, 2025 End: January 04, 2025 Dr. Celso Rod MD Referring Provider Active Start: January 04, 2025 End: January 04, 2025 Team Status: Active Member Role/Relationship Status Dates Chiquis Azul CRUSHER FOREMAN, CRUSHER FOREMAN-C Primary Care Provider Active Start: January 04, 2025 Dr. Pillo Kaur MD Attending Provider Active S tart: January 04, 2025 Dr. Celso Rod MD Referring Provider Active Start: January 04, 2025 Team Status: Inactive Member Role/Relationship Status Dates Chiquis Azul CRUSHER FOREMAN, CRUSHER FOREMAN-C Primary Care Provider Active Start: January 05, 2025 End: January 05, 2025 Chiquis Azul CRUSHER FOREMAN, CRUSHER FOREMAN-C Referring Provider Ac tive Start: January 05, 2025 End: January 05, 2025 Dr. Celso Rod MD Attending Provider Active Start: January 05, 2025 End: January 05, 2025 Team Status: Active Member Role/Relationship Status Dates Chiquis Azul CRUSHER FOREMAN, CRUSHER FOREMAN-C Primary Care Provider Active Start: January Dr. Celso Rod MD Attending Provider Active Start: February 14, 2025 Team Status: Inactive Member Role/Relationship Status Dates Chiquis Azul CRUSHER FOREMAN, CRUSHER FOREMAN-C Primary Care Provider Active Start: January End: February 15, 2025 Dr. Germán Gonzalez DO Attending Provider Active Start: February 15, 2025 End: February 15, 2025 Team Status: Inactive Member Role/Relationship Status Dates Chiquis Azul CRUSHER FOREMAN, CRUSHER FOREMAN-C Primary Care Provider Active Start: December 21, 2024 End: December 21, 2024 Chiquis Azul CRUSHER FOREMAN, CRUSHER FOREMAN-C Attending Provider Ac tive Start: December 21, 2024 End: December 21, 2024 Chiquis Azul CRUSHER FOREMAN, CRUSHER FOREMAN-C Referring Provider Ac tive Start: December 21, 2024 End: December 21, 2024 Team Status: Inactive Member Role/Relationship Status Dates Chiquis Azul CRUSHER FOREMAN, CRUSHER FOREMAN-C Primary Care Provider Active Start: January 04, 2025 End: January 04, 2025 Dr. Celso Rod MD Attending Provider Active Start: January 04, 2025 End: January 04, 2025 Dr. Celso Rod MD Referring Provider Active Start: January 04, 2025 End: January 04, 2025 Team Status: Active Member Role/Relationship Status Dates Chiquis Azul CRUSHER FOREMAN, CRUSHER FOREMAN-C Primary Care Provider Active Start: January 04, 2025 Dr. Pillo Kaur MD Attending Provider Active S tart: January 04, 2025 Dr. Celso Rod MD Referring Provider Active Start: January 04, 2025 Team Status: Inactive Member Role/Relationship Status Dates Chiquis Azul CRUSHER FOREMAN, CRUSHER FOREMAN-C Primary Care Provider Active Start: January 05, 2025 End: January 05, 2025 Chiquis Azul CRUSHER FOREMAN, CRUSHER FOREMAN-C Referring Provider Ac tive Start: January 05, 2025 End: January 05, 2025 Dr. Celso Rod MD Attending Provider Active Start: January 05, 2025 End: January 05, 2025 Team Status: Inactive Member Role/Relationship Status Dates Chiquis Azul CRUSHER FOREMAN, CRUSHER FOREMAN-C Primary Care Provider Active Start: January End: February 15, 2025 Dr. Germán Gonzalez DO Attending Provider Active Start: February 15, 2025 End: February 15, 2025 Team Status: Inactive Member Role/Relationship Status Dates Chiquis Azul CRUSHER FOREMAN, CRUSHER FOREMAN-C Primary Care Provider Active Start: January End: February 22, 2025 Dr. Celso Rod MD Attending Provider Active Start: February 22, 2025 End: February 22, 2025 Team Status: Inactive Member Role/Relationship Status Dates Chiquis Azul CRUSHER FOREMAN, CRUSHER FOREMAN-C Primary Care Provider Active Start: February 262024 End: March 09, 2025 Chiquis Azul CRUSHER FOREMAN, CRUSHER FOREMAN-C Referring Provider Active Start: February End: March 09, 2025 Dr. Celso Rod MD Attending Provider Active Start: March 09, 2025 End: March 09, 2025 Goals (unrecognized section and content) Goals may be documented in a n alternate sectionGoals may be documented in an alternate section No data available for this sectionGoals may be documented in an alternate sectionGoals may be documented in an alternate sectionGoals may be documented in an alternate sectionGoals may be documented in an alternate sectionGoals may be documented in an alternate sectionGoals may be documented in an alternate sectionGoals may be documented in an alternate sectionGoals may be documented in an alternate sectionGoals may be documented in an alternate sectionGoals may be documented in an alternate section No data available for this sectionGoals may be documented in an alternate sectionGoals may be documented in an alternate sectionGoals may be documented in an alternate sectionGoals may be documented in an alternate sectionGoals may be documented in an alternate sectionGoals may be documented in an alternate sectionGoals may be documented in an alternate sectionGoals may be documented in an alternate sectionGoals may be documented in an alternate sectionGoals may be documented in an alternate section Care Team (unrecognized sect ion and content) Care Team Personnel Name: CHIQUIS AZUL APRN - MULESER Position: P4 Advanced Practice Nurse Med Service: Employed Provider Member Role: Primary Care Physician Address: Address: [address] [place] [id number] [place] Care Team Related Persons Name: BRAD WALLACE Address: [place] [address], [place] [id number] Address: [place] [address], [place] [id number] INFORMATION SOURCE (unrecogn ized section and content) DATE CREATED AUTHOR 02/23/2022 [facility] ([place]) DATE CREATED AUTHOR AUTHOR'S ORGANIZ ATION 06/09/2022 [facility] DATE CREATED AUTHOR AUTHOR'S ORGANIZ ATION 03/28/2024 [facility] DATE CREATED AUTHOR AUTHOR'S ORGANIZ ATION 03/11/2025 [facility] FOR RECORDS PERTAINING TO PATIENTS WHO [...] BE BASED ON THE PRIMARY CLINICAL RECORDS. [facility] provides no warranty or guarantee of the accuracy or completeness of information in this document.
[2025-03-23 12:46] LABS: Hematocrit 37.1 % (37-47); Hemoglobin 12.1 g/dL (12.0-15.0); Immature Granulocytes Count 0.010 X10^3/uL (0.0-0.0); Mean Corp Hgb Conc 32.6 g/dL (32-36); Mean Corpuscular Volume 93.5 fL (81-99); Mean Platelet Vol. 8.7 fl (6.2-12.0); NRBC Flagged by Analyzer 0 % (0-5); Platelet Count 233 K/mm3 (150-450); RBC Distribution Width CV 12.6 % (11.6-14.6); RBC Distribution Width SD 43.8 fl (35.1-43.9); Red Blood Count 3.97 M/mm3 (4.2-5.4); White Blood Count 4.7 K/mm3 (4.4-11.0)
[2025-03-23 13:19] LABS: AST(SGOT) 22 U/L (<=31); Alanine Aminotransfer ALT/SGPT 21 U/L (<=34); Albumin, Serum 4.1 g/dL (3.4-4.8); Alkaline Phosphatase 75 U/L (35-104); Anion Gap 11 (5-15); BUN 17 mg/dL (4-19); BUN/Creat Ratio 20.1 RATIO (10-20); Calcium,Total 9.0 mg/dL (7.6-11.0); Carbon Dioxide 24.3 mmol/L (21.0-32.0); Chloride 105 mmol/L (98-108); Globulin 2.2 g/dL (2.2-4.2); Glucose 132 mg/dL (70-99); LDH 201 U/L (84-246); Potassium 4.2 mmol/L (3.3-5.1)
[2025-03-24 08:09] LABS: CA 15-3 27.7 U/mL (0.0-25.0); CA 27.29 35.4 U/mL (0.0-38.6)
== END | disposition home or self-care (01) ==
LOC: LAB 12:19
PROVIDERS: PCP Nurse Practitioner Family; Referring Provider Internal Medicine Medical Oncology; Visit Provider Internal Medicine Medical Oncology
DX: Z85.3 Personal history of malignant neoplasm of breast (principal)
CPT/HCPCS: 36415; 80053; 83615; 85025; 86300

== ENCOUNTER → 2025-05-10 | Outpatient (CLI) | payer MEDICARE, OTHER, SELFPAY ==
--- NOTE | 2025-05-10 11:40 | CT_ITS ---
EXAM: CT Abdomen and Pelvis Without Intravenous Contrast CLINICAL INDICATION: ACUTE LEFT FLANK PAIN TECHNIQUE: Axial computed tomography images of the abdomen and pelvis without intravenous contrast. This CT exam was performed using one or more of the following dose reduction techniques: automated exposure control, adjustment of the mA and/or kV according to patient size, and/or use of iterative reconstruction technique. COMPARISON: CT 07/31/2023 FINDINGS: LUNG BASES: Unremarkable. No mass. No consolidation. ABDOMEN: LIVER: Fatty liver. GALLBLADDER AND BILE DUCTS: Unremarkable. No calcified stones. No ductal dilation. PANCREAS: Unremarkable. No ductal dilation. SPLEEN: Unremarkable. No splenomegaly. ADRENALS: Unremarkable. No mass. KIDNEYS AND URETERS: Unremarkable. No stones within either kidney. No hydronephrosis. STOMACH AND BOWEL: Fecal retention in the colon consistent with constipation. No obstruction. No mucosal thickening. PELVIS: APPENDIX: No findings to suggest acute appendicitis. BLADDER: Unremarkable. No stones. REPRODUCTIVE: Unremarkable as visualized. ABDOMEN and PELVIS: INTRAPERITONEAL SPACE: Unremarkable. No free air. No significant fluid collection. BONES/JOINTS: Mild endplate degenerative changes and disc degeneration of L5- S1. No acute fracture. No dislocation. SOFT TISSUES: Umbilical hernia containing fat. VASCULATURE: Scattered calcified atherosclerotic disease of aorta. No abdominal aortic aneurysm. LYMPH NODES: Unremarkable. No enlarged lymph nodes. CT/Abdomen/Pelvis without Cont IMPRESSION: 1. Fecal retention in the colon consistent with constipation. 2. No obstructive uropathy. 3. Umbilical hernia containing fat. Reading Location: [id number]
[2025-05-10 12:13] LABS: Hematocrit 38.3 % (37-47); Hemoglobin 12.9 g/dL (12.0-15.0); Mean Corp Hgb Conc 33.7 g/dL (32-36); Mean Corpuscular Volume 90.5 fL (81-99); Mean Platelet Vol. 8.4 fl (6.2-12.0); Platelet Count 210 K/mm3 (150-450); RBC Distribution Width CV 12.3 % (11.6-14.6); RBC Distribution Width SD 40.9 fl (35.1-43.9); Red Blood Count 4.23 M/mm3 (4.2-5.4); White Blood Count 5.0 K/mm3 (4.4-11.0)
[2025-05-10 13:20] LABS: PTHIN 53 pg/mL (11-61)
[2025-05-10 13:37] LABS: AST(SGOT) 26 U/L (<=31); Alanine Aminotransfer ALT/SGPT 29 U/L (<=34); Albumin, Serum 4.0 g/dL (3.4-4.8); Alkaline Phosphatase 70 U/L (35-104); Anion Gap 9 (5-15); BUN 17 mg/dL (4-19); BUN/Creat Ratio 17.8 RATIO (10-20); Calcium,Total 9.2 mg/dL (7.6-11.0); Carbon Dioxide 26.9 mmol/L (21.0-32.0); Chloride 105 mmol/L (98-108); Cholesterol 176 mg/dL (<=200); Globulin 2.7 g/dL (2.2-4.2); Glucose 99 mg/dL (70-99); Low Density Lipoprotein Calc. 112 mg/dL; Potassium 4.4 mmol/L (3.3-5.1); Triglycerides 134 mg/dL; Very Low Density Lipoprotein 27 mg/dL (5-40); Vitamin D,25 Hydroxy 51.7 ng/mL (30-100); cholesterol:hdl ratio screen 4.37
== END | disposition home or self-care (01) ==
LOC: CT 11:16
PROVIDERS: PCP Nurse Practitioner Family; Referring Provider Nurse Practitioner Family; Visit Provider Nurse Practitioner Family
DX: N18.30 Chronic kidney disease, stage 3 unspecified (principal); R73.01 Impaired fasting glucose; E78.00 Pure hypercholesterolemia, unspecified; E55.9 Vitamin D deficiency, unspecified; M54.50 Low back pain, unspecified; R10.A2 Flank pain, left side; R74.8 Abnormal levels of other serum enzymes; R31.9 Hematuria, unspecified
CPT/HCPCS: 36415; 74176; 80053; 80061; 82306; 83036; 83970; 85027; 87086; 87088

== ENCOUNTER 2025-05-22 10:00 | Outpatient (RCR) | payer MEDICARE, OTHER, SELFPAY ==
--- NOTE | 2025-04-23 18:41 | HP.PTEVAL_ITS ---
Patient's Visit Information Visit Information Visit Information: RICHY WALLACE is a 69 year old F referred to Physical Therapy by Dr. Bebeto Xiao MD with a diagnosis of UNILATERAL PRIMARY OSTEOARTHRITIS ,LEFT KNEE WEAKNESS ,BURSITIS RIGHT KNEE. Date of Evaluation: 04/23/25 Physical Therapist: Dash Lynn, PT, Cert MDT, OCS Visit Plan Frequency: 2-3x /Week Duration: 4-6 Weeks Plan: NEEDS LEFT TKA BUT HAS TO GET RIGHT LEG STRONGER PT INTERVENTIONS ROM/FLEXABILITY ,STRENGTHENING QUADS/HAMS/HIP ,FUNCTIONAL STRENGTHENING ,AND ENDURANCE EX'S Subjective Subjective: This 69 y/o female presents to physical therapy with right and left knee pain. Patient has had right TKA 2018 and plan to get left knee with TKA but needs right leg stronger. Patient seen DR joel left knee showed severe DJD and right TKA looks good anatomical. Did try prednisone. Possible get block in right knee. Patient pain located right medial and global left medial aspect. Aggravating factors standing/walking unable to squat /kneel. Stairs difficulty one step at time. C/O tingling knee. Patient pain affects sleeping. Patient condition affects QOL and function/gait/housework tasks. Patient goals to get right knee stronger to get TKA. 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 Goal Time Frame: 4-6 Weeks Goal 3:: Patient to improve LFES score by 5 points to improve QOL and function. Goal Time Frame: 4-6 Weeks Goal 4:: Patient demonstrate 50% improvement with less pain and improved function Goal Time Frame: 4-6 Weeks Rehabilitation Potential Physical Therapy Diagnosis: This patient has weakness right knee with h/o right TKA and needs left knee replacement thus has impairments with walking/standing pain affects ADLS and housework tasks thus benefit from skilled pt Rehabilitation Potential: Good Anticipated Interventions Patient/Client Instruction: Educate patient on: Condition and Plan of Care For the Purpose of:: To decrease pain, To increase ROM, To improve muscle performance and motor function, To improve ability to perform ADL's, To increase tolerance to activity/condition/position, To improve ability of physical actions for home/community/work/leisure, To improve health of tissue, To decrease soft tissue restriction, To increase flexibility/ROM, To improve endurance and To improve tolerance to ADL's Therapeutic Exercise to Include: Strength training, Endurance training, Postural training, Flexibilty training, Active ROM and Dynamic Lumbar Stabilization For the Purpose of:: To decrease pain, To increase ROM, To improve muscle performance and motor function, To improve ability to perform ADL's, To increase tolerance to activity/condition/position, To improve ability of physical actions for home/community/work/leisure, To improve gait and locomotor functions and To reduce risk of recurrence Text: Thank you for the opportunity to evaluate your patient. For Medicare and Medicare HMO plans, please review the plan of care and approve it. It will need to be FAXED BACK to us at [phone] for Medicare purposes. For Medicare only, by signing this I certify the plan of care. Please let me know if there are questions or concerns regarding this plan of car yudi Physician Signature: Date:
--- NOTE | 2025-05-22 10:52 | HP.PTDCSUM ---
Discharge Summary D/C summary: It has been my pleasure to treat RICHY WALLACE referred by Dr. Bebeto Xaio MD, with the diagnosis of UNILATERAL PRIMARY OSTEOARTHRITIS ,LEFT KNEE WEAKNESS ,BURSITIS RIGHT KNEE for a total of 11 visit(s). Discharge Date: 05/22/25 Please see the following information for a summary of their discharge status. 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 Goal 3:: Patient to improve LFES score by 5 points to improve QOL and function. Goal 4:: Patient demonstrate 50% improvement with less pain and improved function Goal Progress: Goal Met Plan Plan: D/C D/C Information Discharge Comments: HEP AND GYM PROGRAM d/c sentence: If there are questions or concerns regarding this patient's physical therapy, please feel free to call me at [phone]. Thank you for the referral of this patient. Sincerely, Dash Lynn, PT, Cert MDT, OCS Balance/Gait/Functional tests Balance/Special Test Scores Lower Extremity Functional Score: 48 Improvement % Improvement: 50
== END 2025-05-22 19:00 | disposition home or self-care (01) ==
LOC: PT 10:00
PROVIDERS: PCP Nurse Practitioner Family; Visit Provider Specialist
DX: M70.51 Other bursitis of knee, right knee (principal); M17.12 Unilateral primary osteoarthritis, left knee; R53.1 Weakness
CPT/HCPCS: 97110; 97162; 97530

== ENCOUNTER → 2025-06-08 | Outpatient (CLI) | payer MEDICARE, OTHER, SELFPAY ==
[2025-06-08 12:55] LABS: Hematocrit 41.9 % (37-47); Hemoglobin 13.6 g/dL (12.0-15.0); Mean Corp Hgb Conc 32.5 g/dL (32-36); Mean Corpuscular Volume 91.7 fL (81-99); Mean Platelet Vol. 9.0 fl (6.2-12.0); Platelet Count 254 K/mm3 (150-450); RBC Distribution Width CV 12.7 % (11.6-14.6); RBC Distribution Width SD 42.4 fl (35.1-43.9); Red Blood Count 4.57 M/mm3 (4.2-5.4); White Blood Count 5.1 K/mm3 (4.4-11.0)
[2025-06-08 13:52] LABS: AST(SGOT) 28 U/L (<=31); Alanine Aminotransfer ALT/SGPT 26 U/L (<=34); Albumin, Serum 4.2 g/dL (3.4-4.8); Alkaline Phosphatase 71 U/L (35-104); Anion Gap 10 (5-15); BUN 13 mg/dL (4-19); BUN/Creat Ratio 13.6 RATIO (10-20); Calcium,Total 9.2 mg/dL (7.6-11.0); Carbon Dioxide 25.4 mmol/L (21.0-32.0); Chloride 104 mmol/L (98-108); Cholesterol 171 mg/dL (<=200); Globulin 2.7 g/dL (2.2-4.2); Glucose 109 mg/dL (70-99); Low Density Lipoprotein Calc. 103 mg/dL; Potassium 4.2 mmol/L (3.3-5.1); Triglycerides 142 mg/dL; Very Low Density Lipoprotein 28 mg/dL (5-40); Vitamin D,25 Hydroxy 54.1 ng/mL (30-100); cholesterol:hdl ratio screen 3.99
[2025-06-08 14:00] LABS: PTHIN 74 pg/mL (11-61)
== END | disposition home or self-care (01) ==
LOC: LAB 11:51
PROVIDERS: PCP Nurse Practitioner Family; Referring Provider Nurse Practitioner Family; Visit Provider Nurse Practitioner Family
DX: N18.30 Chronic kidney disease, stage 3 unspecified (principal); R73.01 Impaired fasting glucose; E78.00 Pure hypercholesterolemia, unspecified; N18.9 Chronic kidney disease, unspecified; E55.9 Vitamin D deficiency, unspecified
CPT/HCPCS: 36415; 80053; 80061; 82306; 83036; 83970; 85027